=== PATIENT | female | born 2005 | race Caucasian/White ===

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

== ENCOUNTER → 2025-09-19 | Outpatient (CLI) | payer OTHER, SELFPAY ==
[2025-09-19 16:45] LABS: Hematocrit 34.9 % (37-47); Hemoglobin 12.1 g/dL (12.0-15.0); Immature Granulocytes Count 0.100 X10^3/uL (0.0-0.0); Mean Corp Hgb Conc 34.7 g/dL (32-36); Mean Corpuscular Volume 78.4 fL (81-99); Mean Platelet Vol. 10.6 fl (6.2-12.0); NRBC Flagged by Analyzer 0 % (0-5); Platelet Count 341 K/mm3 (150-450); RBC Distribution Width CV 12.9 % (11.6-14.6); RBC Distribution Width SD 36.4 fl (35.1-43.9); Red Blood Count 4.45 M/mm3 (4.2-5.4); White Blood Count 13.5 K/mm3 (4.4-11.0)
[2025-09-19 18:33] LABS: HIV Nonreactive (Nonreactive); Hepatitis B Surface Antigen Nonreactive (Nonreactive); Hepatitis C Antibody Nonreactive (Nonreactive); Syphilis Antibodies Nonreactive (Nonreactive)
[2025-09-23 06:07] LABS: Chlamydia By Nucleic Acid AMP Negative (Negative); Gonococcus By Nucleic Acid AMP Negative (Negative)
== END | disposition home or self-care (01) ==
PROVIDERS: PCP Nurse Practitioner Primary Care; Visit Provider Advanced Practice Midwife
DX: O09.90 Supervision of high risk pregnancy, unspecified, unspecified trimester (principal); Z3A.00 Weeks of gestation of pregnancy not specified
CPT/HCPCS: 36415; 83036; 85025; 86703; 86762; 86780; 86803; 86850; 86900; 86901; 87070; 87086; 87205; 87340; 87491; 87591

== ENCOUNTER 2025-10-11 10:06 | Outpatient (CLI) | payer OTHER, SELFPAY ==
[2025-10-11 10:13] VITALS: BP 119/75; PULSE 82; RESP 16; TEMP 35.9; O2SAT 98; BMI 34.0
[2025-10-11] MEDS: 0.9% NaCl Peripheral Flush Adult IV (10:46)
--- OUTSIDE RECORDS SUMMARY | 2025-10-11 11:00 | XMS RPT_ITS | CCD ---
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 Role Phone KERI, JIL Unavailable Unavailable BJORN, JACOB M Unavailable Unavailable BJORN, JACOB M Unavailable Unavailable KERI, JIL Unavailable Unavailable KERI, JIL Unavailable Unavailable BJORN, JACOB M Unavailable Unavailable KERI, JIL Unavailable Unavailable KERI, JIL Unavailable Unavailable BJORN, JACOB M Unavailable Unavailable KERI, JIL Unavailable Unavailable BJORN, JACOB M Unavailable Unavailable BJORN, JACOB M Unavailable Unavailable KERI, JIL Unavailable Unavailable KERI, JIL Unavailable Unavailable BJORN, JACOB M Unavailable Unavailable Janitz, Rocio Unavailable Unavailable Janitz, Rocio Unavailable Unavailable BJORN, JACOB M Unavailable Unavailable SANDHYA SNYDER Unavailable Unavailabl e PHADKE, KHANG Y Unavailable Unavailable BJORN, JACOB M Unavailable Unavailable PHADKE, KHANG Y Unavailable Unavailable PHADKE, KHANG Y Unavailable Unavailable BJORN, JACOB M Unavailable Unavailable KERI, JIL Unavailable Unavailable BJORN, JACOB M Unavailable Unavailable BJORN, JACOB M Unavailable Unavailable KERI, JIL Unavailable Unavailable KERI, JIL Unavailable Unavailable BJORN, JACOB M Unavailable Unavailable ALVIN MACE-TRISTA, NICOLETTE Sol Primary Care Physicia n Alvin TACK CLEANER, TACK CLEANER-C Nicolette Primary Care Provider Dr. Raman Roque Attending Provider ALVIN MACE-TRISTA, NICOLETTE Sol Attending Unava ilable ALVIN WICKN-SURVEY RESEARCH ANALYST, NICOLETTE Sol Primary Care Unava ilable ALVIN MACE-SURVEY RESEARCH ANALYST, NICOLETTE Sol Attending Unava ilable ALVIN DIRECTOR OF CORPORATE STRATEGY-SURVEY RESEARCH ANALYST, NICOLETTE S Primary Care Unava ilable ALVIN DIRECTOR OF CORPORATE STRATEGY-SURVEY RESEARCH ANALYST, NICOLETTE S Attending Unava ilable ALVIN DIRECTOR OF CORPORATE STRATEGY-SURVEY RESEARCH ANALYST, NICOLETTE S Primary Care Unava ilable DAY VILLASEÑOR, DR BAR Attending Unavailabl e ALVIN DIRECTOR OF CORPORATE STRATEGY-SURVEY RESEARCH ANALYST, NICOLETTE S Primary Care Unava ilable MAST DIRECTOR OF CORPORATE STRATEGY-SURVEY RESEARCH ANALYST, SUMA Attending Unavailabl e ALVIN DIRECTOR OF CORPORATE STRATEGY-SURVEY RESEARCH ANALYST, NICOLETTE S Primary Care Unava ilable DAY VILLASEÑOR, DR BAR Attending Unavailabl e ALVIN DIRECTOR OF CORPORATE STRATEGY-SURVEY RESEARCH ANALYST, NICOLETTE S Primary Care Unava ilable SUGEY VILLASEÑOR, NORTH Fong Attending Unavail able ALVIN DIRECTOR OF CORPORATE STRATEGY-SURVEY RESEARCH ANALYST, NICOLETTE S Primary Care Unava ilable MURILLO DIRECTOR OF CORPORATE STRATEGY-SURVEY RESEARCH ANALYST, PROSPER Johnson Attending Unavai lable ALVIN DIRECTOR OF CORPORATE STRATEGY-SURVEY RESEARCH ANALYST, NICOLETTE S Primary Care Unava ilable NINA VILLASEÑOR, DR ELIO Chen Attending Unavai lable ALVIN DIRECTOR OF CORPORATE STRATEGY-SURVEY RESEARCH ANALYST, NICOLETTE S Primary Care Unava ilable LESTER WHITLOCK, DR SADAF Heaton Attending Unavailable ALVIN DIRECTOR OF CORPORATE STRATEGY-SURVEY RESEARCH ANALYST, NICOLETTE S Primary Care Unava ilable ANALILIA VILLASEÑOR, DAIN Whitten Attending Unavailable ALVIN DIRECTOR OF CORPORATE STRATEGY-SURVEY RESEARCH ANALYST, NICOLETTE S Primary Care Unava ilable SUGEY VILLASEÑOR, NORTH Fong Attending Unavail able ALVIN DIRECTOR OF CORPORATE STRATEGY-SURVEY RESEARCH ANALYST, NICOLETTE S Primary Care Unava ilable YE ANDERSON MD Attending Unavailable ALVIN DIRECTOR OF CORPORATE STRATEGY-SURVEY RESEARCH ANALYST, NICOLETTE S Primary Care Unava ilable MURILLO DIRECTOR OF CORPORATE STRATEGY-SURVEY RESEARCH ANALYST, PROSPER Johnson Attending Unavai lable ALVIN DIRECTOR OF CORPORATE STRATEGY-SURVEY RESEARCH ANALYST, NICOLETTE S Primary Care Unava ilable Unavailable Primary Care Provider Unavaildavid Jameson RD, Rhianna Chen Unavailable SAUL WICKN - TRISTA, DANIELA Glover Primary Care Phys [facility] Daniela Fenton CNP Primary Care Provider ALVIN DIRECTOR OF CORPORATE STRATEGY-SURVEY RESEARCH ANALYST, NICOLETTE S Primary Care Unava ilable NINA VILLASEÑOR, DR ELIO Cehn Attending Unavai lable ALVIN DIRECTOR OF CORPORATE STRATEGY-SURVEY RESEARCH ANALYST, NICOLETTE S Primary Care Unava ilable DAY VILLASEÑOR, DR BAR Attending Unavailabl e SAUL DIRECTOR OF CORPORATE STRATEGY - SURVEY RESEARCH ANALYST, DANIELA Glover Primary Care U navailable SAUL DIRECTOR OF CORPORATE STRATEGY - SURVEY RESEARCH ANALYST, DANIELA Glover Attending U navailable SAUL DIRECTOR OF CORPORATE STRATEGY - SURVEY RESEARCH ANALYST, DANIELA Glover Primary Care U navailable RIDER DO, DR SADAF Heaton Attending Unavailable ALVIN DIRECTOR OF CORPORATE STRATEGY-SURVEY RESEARCH ANALYST, NICOLETTE S Primary Care Unava ilable GAIL DO, ROCIO Attending Unavailable SAMM LARSON Attending Unavailable SAULDANIELA ZAIDI Primary Care Unavailable NICOLETTE NEUMANN Attending Unavailable RHIANNA JAMESON Attending Unavailable ZOLTAN BETANCOURT A Referring Unavailable RAYNAHNERZOLTAN Attending Unavailable ZOLTAN BETANCOURT Referring Unavailable RAYNAHNCORINNE, ZOLTAN A Referring Unavailable NICOLETTE NEUMANN Referring Unavailable NICOLETTE NEUMANN Referring Unavailable SAULDANIELA ZAIDI Primary Care Unavailable NICOLETTE NEUMANN Attending Unavailable EDIE ALEMAN Attending Unavailable SAUL, DANIELA Glover Primary Care Unavailable SAULDANIELA ZAIDI Primary Care Unavailable JASEN GABRIEL Attending Unavailable SUALDANIELA ZAIDI Primary Care Unavailable SELF Referring Unavailable MCKENZIE CONSTANTINO Attending Unavailable Alvin TACK CLEANER-C, Nicolette Primary Care Physician [phone] Alvin TACK CLEANER-C, Nicolette Referring Provider [phone] Chito VILLASEÑOR, Dr. Conner Attending Physician Dalila Dale Attending Unavailable [place] TACK CLEANER, Nicolette Primary Care Unavailable Alvin TACK CLEANER, Nicolette Referring Unavailable [place] TACK CLEANER, Nicolette Primary Care Unavailable Alvin BANKS, Nicolette Referring Unavailable Geeta Leo Attending Unavailable Alvin BANKS, Nicolette Primary Care Unavailable Geeta Leo Attending Unavailable Allergies Allergy Classification Reported Allergen(s) Allergy Type Date of Onset Reaction(s) Facility (14 sources) Contrast dye 1; Translations: [iodinated radiocontrast agents] Drug allergy [facility] Comment on above: throat swelling (2 sources) Iodinated Contrast Media; Translations: [IODINATED CONTRAST MEDIA] Drug Allergy 5 Anaphylaxis [facility] (1 source) Nonoxynol-9 Drug Allergy 5 Swelling [facility] Comment on above: vaginal irritation (1 source) Triiodobenzoic Acids Propensity to adverse reactions 5 Anaphylaxis [facility] (1 source) Iodinated Contrast Media Drug allergy (disorder) 5 [facility] (1 source) nonoxynol 9 Drug allergy (disorder) 5 [facility] Medications Current Medications Medication Drug Class(es) Dates Sig (Normalized) Sig (Original) acetaminophen 325 mg / butalbital 50 mg / caffeine 40 mg oral tablet (2 sources) Barbiturate, Central Nervous System Stimulant, Methylxanthine Start: 04-30-2025 End: 05-05-2025 take 1 tablet by mouth every six hours as needed for headache, then take 6 tablets by mouth once daily as needed for headache APAP/butalbital/caf feine 325-50-40 mg oral tablet (Fioricet) Dose = 1 tab(s), Oral, q6h, PRN as needed for headache, not to exceed 6 tablets/day, X 5 day(s), # 20 tab(s), 0 Refill(s), ., Pharmacy: [facility], Migraines Frequent headaches, 159, cm, 04/30/25 13:50:00 EDT, Height, 81.2, kg, 04/30/25 13:50:00 EDT, Dosing Weight Start Date: 04/30/25 Stop Date: 05/05/25 Status: Ordered Quantity: 20.0 Unit: tab(s) Repeat number: 1 Indications: Migraine, unspecified, not intractable, without status migrainosus; Headache, unspecified; acetaminophen 325 mg / HYDROcodone bitartrate 5 mg oral tablet (1 source) Opioid Agonist Start: 09-22-2023 End: 09-24-2023 take 1 tablet by mouth every six hours [place] 325- 5 mg oral tablet Dose = 1 tab(s), Oral, q6h, # 5 tab(s), 0 Refill(s), Abdominal pain, 66.7 Start Date: 09/22/23 Stop Date: 09/24/23 Status: Ordered atenolol 25 mg oral tablet (3 sources) beta-Adrenergic Karina Start: 09-09-2022 atenolol 25 mg oral tablet Dose : 25 mg = 1 tab(s), Oral, qDay, # 30 tab(s), 3 Refill(s), Pharmacy: [facility], 155, cm, 09/06/22 16:57:00 EDT, Height Start Date: 09/09/22 Status: Ordered cephalexin 500 mg oral capsule (1 source) Cephalosporin Antibacterial Start: 05-07-2024 End: 05-12-2024 cephalexin 500 mg oral capsule Dose : 500 mg = 1 cap(s), Oral, BID, Take with a probiotic, X 5 day(s), # 10 cap(s), 0 Refill(s), 05/12/24 11:50:00 PM EDT, 65.9 Start Date: 05/07/24 Stop Date: 05/12/24 Status: Ordered ciprofloxacin 500 mg oral tablet (3 sources) Quinolone Antimicrobial Start: 09-10-2022 End: 09-13-2022 take 1 tablet by mouth every twelve hours ciprofloxacin 500 mg oral tablet TAKE 1 TABLET BY MOUTH EVERY 12 HOURS FOR 3 DAYS Start Date: 09/14/22 Status: Ordered eletriptan 40 mg oral tablet (2 sources) Serotonin-1b and Serotonin-1d Receptor Agonist Start: 05-28-2025 eletriptan (RELPAX) 40 mg tablet Take 1 tablet by mouth as needed for migraine headache (see administration instructions). at the onset of migraine headache. 9 tablet 3 05/28/2025 Active {21 (Ethinyl Estradiol 0.035 MG / norgestimate 0.25 MG Oral Tablet) / 7 (Inert Ingredients 1 MG Oral Tablet) } Pack [Sprintec 28 Day] (2 sources) Progestin, Estrogen Start: 09-06-2022 take 1 tablet by mouth once daily Sprintec 0.25 mg-35 mcg oral tablet Dose = 1 tab(s), Oral, qDay, # 28 tab(s), 0 Refill(s) Start Date: 09/06/22 Status: Ordered Start: 04-13-2022 Sprintec 0.25 mg-35 mcg oral tablet 0 Refill(s) Start Date: 04/13/22 Status: Ordered famotidine 20 mg oral tablet (7 sources) Histamine-2 Receptor Antagonist Start: 06-11-2024 Pepcid 20 mg oral tablet Dose : 20 mg = 1 tab(s), Oral, BID, # 60 tab(s), 0 Refill(s) Start Date: 06/11/24 Status: Ordered Start: 09-26-2023 End: 10-26-2023 famotidine 20 mg oral tablet Dose : 20 mg = 1 tab(s), Oral, BID, # 60 tab(s), 0 Refill(s), Pharmacy: [id number], Epigastric pain Nausea & vomiting, 157, cm, 09/26/23 8:09:00 EST, Height, kg, 09/26/23 8:09:00 EST, Dosing Weight Start Date: 09/26/23 Stop Date: 10/26/23 Status: Ordered FeroSul 325 mg (65 mg elemental iron) oral tablet (5 sources) Start: 04-13-2022 FeroSul 325 mg (65 mg elemental iron) oral tablet Dose : 325 mg = 1 tab(s), Oral, qDay, 0 Refill(s) Start Date: 04/13/22 Status: Ordered ferrous sulfate 325 mg oral tablet (1 source) Start: 01-05-2022 ferrous sulfate 325 mg (65 mg elemental iron) oral tablet Dose : 325 mg = 1 tab(s), Oral, qDay, every other day, # 90 tab(s), 3 Refill(s), Pharmacy: [id number], 155, cm, 01/05/22 14:30:00 EST, Height, kg, 01/05/22 14:30:00 EST, Dosing Weight Start Date: 01/05/22 Status: Ordered gabapentin 300 mg oral capsule (2 sources) Anti-epileptic Agent Start: 05-28-2025 End: 08-26-2025 take 1 capsule by mouth once daily at bedtime gabapentin (NEURONTIN) 300 mg capsule Take 1 capsule by mouth daily at bedtime for 90 days. 90 capsule 05/28/2025 08/26/2025 Active melatonin 1 mg oral tablet (6 sources) Start: 01-05-2022 End: 12-31-2022 melatonin 1 mg oral tablet Dose : 1 mg = 1 tab(s), Oral, qHS, PRN as needed for insomnia, X 90 day(s), # 90 tab(s), 3 Refill(s), 12/31/22 14:51:00 EST, Pharmacy: [id number], 155, cm, 01/05/22 14:30:00 EST, Height, kg, 01/05/22 14:30:00 EST, Dosing Weight Start Date: 01/05/22 Stop Date: 12/31/22 Status: Ordered metFORMIN hydrochloride 500 mg oral tablet (4 sources) Biguanide Start: 05-07-2025 End: 11-03-2025 take 2 tablets by mouth twice daily at mealtime, then take 1 tablet by mouth every week at dinner, then take 2 tablets by mouth two times weekly, then take 3 tablets by mouth at breakfast, then take 2 tablets by mouth every week at dinner, then take 4 tablets by mouth twice daily metFORMIN (GLUCOPHAGE) 500 mg tablet Take 2 tablets by mouth two times a day with meals. Week 1: 500mg with dinner, Week 2: 500mg Twice a day, Week 3: 500 mg with Breakfast and 2 tablets 1000 mg with Dinner, Week 4: 1000mg Twice a day 720 tablet 05/07/2025 11/03/2025 Active metoprolol tartrate 25 mg oral tablet (1 source) beta-Adrenergic Karina Start: 09-06-2022 Metoprolol Succinate ER 25 mg oral TABLET extended release Dose : 25 mg = 1 tab(s), Oral, qDay, # 30 tab(s), 0 Refill(s) Start Date: 09/06/22 Status: Ordered Multivit 79-Fkfl-Mlmwag 1-Dha (Pnv-Dha) 27 mg iron-1 mg -300 mg capsule (1 source) Start: 09-03-2025 Multivit 30-Wknx-Enmcoi 1-Dha (Pnv-Dha) 27 mg iron-1 mg -300 mg capsule Active NMA PO September 03, 2025 12:00am Complies with drug therapy naproxen sodium 550 mg oral tablet (1 source) Nonsteroidal Anti-inflammatory Drug Start: 09-11-2023 End: 09-21-2023 take 1 tablet by mouth once as needed for pain, then take 1 tablet by mouth twice daily as needed for pain Anaprox-DS 550 mg oral tablet Dose : 550 mg = 1 tab(s), PO, BID, prn pain with food, X 10 day(s), # 20 tab(s), 0 Refill(s), 09/21/23 3:42:00 AM EDT Start Date: 09/11/23 Stop Date: 09/21/23 Status: Ordered nortriptyline 25 mg oral capsule (6 sources) Tricyclic Antidepressant Start: 04-30-2025 End: 05-30-2025 nortriptyline (PAMELOR) 25 mg capsule 25 mg. 04/30/2025 Active omeprazole 40 mg delayed release oral capsule (5 sources) Proton Pump Inhibitor Start: 06-11-2024 omeprazole 40 mg oral delayed release capsule Dose : 40 mg = 1 cap(s), Oral, qDay, before a meal, # 30 cap(s), 0 Refill(s) Start Date: 06/11/24 Status: Ordered Start: 10-04-2023 End: 11-03-2023 omeprazole 40 mg oral delaye d release capsule Dose : 40 mg = 1 cap(s), Oral, qDay, # 30 cap(s), 0 Refill(s), Pharmacy: [facility], GERD (gastroesophageal reflux disease), 157, cm, 09/26/23 8:09:00 EST, Height, kg, 09/26/23 8:09:00 EST, Dosing Weight Start Date: 10/04/23 Stop Date: 11/03/23 Status: Ordered ondansetron 4 mg disintegrating oral tablet (5 sources) Serotonin-3 Receptor Antagonist Start: 09-26-2023 ondansetron 4 mg ora l tablet, disintegrating Dose : 4 mg = 1 tab(s), Oral, q6h, PRN Nausea/Vomiting, # 20 tab(s), 0 Refill(s), Pharmacy: [facility], Nausea & vomiting, 157, cm, 09/26/23 8:09:00 EST, Height, kg, 09/26/23 8:09:00 EST, Dosing Weight Start Date: 09/26/23 Status: Ordered Start: 09-22-2023 ondansetron 4 mg oral tablet, disintegrating Dose : 4 mg = 1 tab(s), Oral, q6h, PRN Nausea/Vomiting, # 10 tab(s), 0 Refill(s) Start Date: 09/22/23 Status: Ordered AD (2 sources) Start: 11-01-2024 AD Oral, qDay, 0 Refill(s) Start Date: 11/01/24 Status: Ordered Repeat number: 1 Multivitamins (7 sources) Start: 07-14-2023 take 1 tablet by mouth once daily Multivitamins Dose = 1 tab(s), Oral, qDay, # 90 tab(s), 0 Refill(s) Start Date: 07/14/23 Status: Ordered vit/iron fum/folic ac ( 1 + 1 ORAL) (1 source) vit/iro n fum/folic ac ( 1 + 1 ORAL) Take 1 tablet by mouth once daily. Active prochlorperazine 10 mg oral tablet (1 source) Phenothiazine Start: 05-04-2025 End: 05-09-2025 prochlorperazine 10 mg oral tablet Dose : 10 mg = 1 tab(s), Oral, BID, PRN Headache, Take with 25 mg Benadryl at the onset of headache, X 5 day(s), # 10 tab(s), 0 Refill(s), 05/09/25 12:53:00 AM EDT Start Date: 05/04/25 Stop Date: 05/09/25 Status: Ordered Quantity: 10.0 Unit: tab(s) Repeat number: 1 Sprintec 0.25 mg-35 mcg oral tablet (1 source) Start: 01-05-2022 take 1 tablet by mouth once daily Sprintec 0.25 mg-35 mcg oral tablet Dose = 1 tab(s), Oral, qDay, # 90 tab(s), 3 Refill(s), Pharmacy: [facility], 155, cm, 01/05/22 14:30:00 EST, Height, kg, 01/05/22 14:30:00 EST, Dosing Weight Start Date: 01/05/22 Status: Ordered SUMAtriptan 50 mg oral tablet (6 sources) Serotonin-1b and Serotonin-1d Receptor Agonist Start: 03-15-2024 SUMAtriptan 50 mg oral tablet Dose : 50 mg = 1 tab(s), Oral, qDay, PRN as needed for migraine headache, 1 tab onset , may repeat in 2 hrs. MAX 4 tab(s)/24hrs, # 9 tab(s), 0 Refill(s), Pharmacy: [facility], 157, cm, 03/15/24 7:00:00 EDT, Height, kg, 03/15/24 7:00:00 EDT, Dosing Weight Start Date: 03/15/24 Status: Ordered Completed/Discontinued Medications Medication Drug Class(es) Dates Sig (Normalized) Sig (Original) diphenhydrAMINE hydrochloride 25 mg oral tablet (8 sources) Histamine-1 Receptor Antagonist Start: 12-25-2018 End: 09-03-2025 take 2 tablets by mouth every four hours as needed Diphenhydramine Hcl (Benadryl Allergy) 25 MG tablet Discontinued 50 mg PO EVERY 4 HOURS NEEDED as needed for Itching December 25, 2018 1:00am September 03, 2025 8:19am diphenhydramine HCl (BENADRYL ALLERGY ORAL) Take by mouth. PRN with Nortriptyline Active EPINEPHrine 0.01 mg/ml / lidocaine hydrochloride 10 mg/ml injectable solution (2 sources) Antiarrhythmic, alpha-Adrenergic Agonist, beta-Adrenergic Agonist, Catecholamine, Amide Local Anesthetic Start: 07-12-2025 End: 07-12-2025 lidocaine 1%-EPINEPHrine 1:100,000 1 mL injection Start: 07-12-2025 End: 07-12-2025 1 mL, ONCE, 1 dose, Starting on Tue07/12/25 at 0922, Until Tue07/12/25 at 0922 fluconazole 150 mg oral tablet (3 sources) Azole Antifungal Start: 09-06-2022 End: 09-06-2022 fluconazole 150 mg oral tablet Dose : 150 mg = 1 tab(s), Oral, qDay, # 1 tab(s), 0 Refill(s), 59 Start Date: 09/06/22 Stop Date: 09/06/22 Status: Ordered predniSONE 20 mg oral tablet (4 sources) Start: 12-25-2018 End: 12-31-2018 take 2 tablets by mouth once daily at mealtime Prednisone 20 MG tablet Discontinued 40 mg PO DAILY December 25, 2018 1:00am December 30, 2018 1:00am December 31, 2018 1:08am With food Start: 12-25-2018 End: 12-31-2018 take 40 mg by mouth once daily at mealtime Prednisone Discontinued 40 MG PO DAILY December 25, 2018 2:27am December 31, 2018 1:08am With food Problems Active Problems Problem Classification Problem Date Documented Da te Episodic/Chronic Anxiety disorders (3 sources) Anxiety; Translations: [Anxiety disorder, unspecified] Onset: 5 09-03-2025 Chronic Bacterial infection; unspecified site (1 source) Other specified bacterial agents as the cause of diseases classified elsewhere; Translations: [Bacterial vaginitis] Onset: 5 Episodic Blindness and vision defects (9 sources) Visual disturbance 03-15-2024 Episodic Cardiac dysrhythmias (4 sources) Cardiac arrhythmia; Translations: [Other specified cardiac arrhythmias] Onset: 4 Chronic Cardiac dysrhythmias (20 sources) Palpitations 04-13-2022 Episodic Conditions associated with dizziness or vertigo (2 sources) Dizziness 04-30-2025 Episodic Disorders of lipid metabolism (1 source) Elevated Lipoprotein(a); Translations: [Other disorders of lipoid metabolism] 05-07-2025 Chronic Esophageal disorders (3 sources) Gastroesophageal reflux disease 10-09-2024 Chronic Genitourinary symptoms and ill-defined conditions (15 sources) Dysuria; Translations: [Polyuria] Onset: 5 04-13-2022 Episodic Headache; including migraine (20 sources) Migraine; Translations: [Migraine, unspecified, not intractable, without status migrainosus] Onset: 5 03-15-2024 Chronic Headache; including migraine (20 sources) Frequent headache; Translations: [Headache] 07-13-2022 Episodic Headache; including migraine (1 source) Headache; including migraine; Translations: [Chronic daily headache] Onset: Heart valve disorders (6 sources) Mitral valve regurgitation; Translations: [Pulmonic valve regurgitation] 04-30-2025 Chronic Comment on above: 05/17/2022 Echocardi ogram: SUMMARY: 1. Left ventricular systolic function is normal. 2. Estimated ejection fraction is 60%. 3. Apical false tendon noted. 4. Trivial mitral valve insufficiency. 5. Mild tricuspid valve insufficiency. 6. Mild 1+ pulmonic valve insufficiency. 7. Right ventricular systolic pressure estimated to be 16 mmHg. 8. No evidence of systolic dysfunction. Immunizations and screening for infectious disease (1 source) Patient encounter status; Translations: [Encounter for screening for human papillomavirus (HPV)] 02-27-2025 Episodic Inflammatory diseases of female pelvic organs (1 source) Acute vaginitis; Translations: [Bacterial vaginitis] Onset: 5 Episodic Malaise and fatigue (20 sources) Fatigue; Translations: [Other fatigue] Onset: 3 04-13-2022 Episodic Menstrual disorders (20 sources) Menometrorrhagia; Translations: [Menorrhagia] Onset: 3 11-26-2021 Chronic Noninfectious gastroenteritis (1 source) Noninfectious enteritis; Translations: [Noninfective gastroenteritis and colitis, unspecified] Onset: 5 Episodic Nonspecific chest pain (12 sources) Chest pain 04-13-2022 Episodic Other circulatory disease (20 sources) Postural orthostatic tachycardia syndrome ; Translations: [Postural orthostatic tachycardia syndrome [POTS]] Onset: 5 07-13-2022 Episodic Other complications of (2 sources) Maternal obesity complicating , childbirth and the puerperium, antepartum; Translations: [Obesity complicating , unspecified trimester] 09-03-2025 Chronic Comment on above: HgbA1c Other complications of (1 source) Obesity complicating , unspecified trimester; Translations: [Obesity complicating , unspecified trimester] Onset: 5 Chronic Other complications of (2 sources) High risk ; Translations: [Supervision of high risk , unspecified, unspecified trimester] 09-03-2025 Episodic Comment on above: , PELON 05/01/26 Hu khloeroxanna Melvin Other complications of (1 source) Supervision of high risk , unspecified, unspecified trimester; Translations: [Supervision of high risk , unspecified, unspecified trimester] Onset: 5 Episodic Other complications of (1 source) Vomiting of , unspecified; Translations: [Vomiting of , unspecified] Onset: 5 Episodic Other connective tissue disease (1 source) Pain of right lower leg; Translations: [Pain in right lower leg] Onset: 3 Episodic Other endocrine disorders (1 source) Polycystic ovary syndrome; Translations: [Polycystic ovarian syndrome] 05-07-2025 Chronic Other female genital disorders (3 sources) Abnormal uterine bleeding; Translations: [Abnormal uterine and vaginal bleeding, unspecified] 03-04-2025 Chronic Other female genital disorders (1 source) Abnormal uterine and vaginal bleeding, unspecified; Translations: [Abnormal uterine bleeding (AUB)] Onset: 5 Chronic Other female genital disorders (7 sources) Vaginal discharge 07-14-2023 Episodic Other female genital disorders (1 source) Other specified noninflammatory disorders of vagina; Translations: [Other specified noninflammatory disorders of vagina] Onset: 5 Episodic Other gastrointestinal disorders (5 sources) Irritable bowel syndrome; Translations: [Irritable bowel syndrome without diarrhea] 10-09-2024 Chronic Other gastrointestinal disorders (1 source) Irritable bowel syndrome without diarrhea; Translations: [Irritable bowel syndrome, unspecified] Onset: 5 Chronic Other gastrointestinal disorders (1 source) Diarrhea; Translations: [Diarrhea, unspecified] Onset: 2 Episodic Other gastrointestinal disorders (3 sources) Abdominal bloating; Translations: [Abdominal distension (gaseous)] 11-05-2024 Episodic Other nervous system disorders (2 sources) H/O: migraine; Translations: [Personal history of other diseases of the nervous system and sense organs] 09-03-2025 Episodic Other nervous system disorders (1 source) Personal history of other diseases of the nervous system and sense organs; Translations: [Personal history of other diseases of the nervous system and sense organs] Onset: 5 Episodic Other nutritional; endocrine; and metabolic disorders (2 sources) Obesity; Translations: [Class 1 obesity without serious comorbidity with body mass index (BMI) of 34.0 to 34.9 in adult, unspecified obesity type] 05-07-2025 Chronic Other nutritional; endocrine; and metabolic disorders (1 source) Body mass index (BMI) 34.0-34.9, adult; Translations: [Class 1 obesity without serious comorbidity with body mass index (BMI) of 34.0 to 34.9 in adult, unspecified obesity type] Onset: 5 Chronic Other nutritional; endocrine; and metabolic disorders (2 sources) Excessive thirst 04-30-2025 Episodic Other and delivery including normal (2 sources) ; Translations: [Encounter for supervision of normal , unspecified, unspecified trimester] 09-03-2025 Episodic Comment on above: discussed NIPT & Car rier testing-undecided Other screening for suspected conditions (not mental disorders or infectious disease) (2 sources) Cancer cervix screening status; Translations: [Encounter for screening for malignant neoplasm of cervix]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 VAGINOSIS NAATon 1 Lactobacillus crispatus+gasseri+j ensenii + Gardnerella vaginalis + Atopobium vaginae rRNA AJAY+probe Ql (Vag fld) Not detected Normal Not detected [facility] Comment on above: Order Comment: Speci men Type: SWABOrdering Facility: [facility] Address: [address] [place] [address] Performed By: #### Erich POWERS CVTV ####[facility] LABCLIA [id number] [place] [address] [place] Bacteria Ur Culton Bacteria identified Cx Nom (U) CULTURE, URINE: No growth (<1,000 CFU/ml) Normal [facility] Comment on above: Performed By: #### 6 30-4 ####[facility] LABCLIA [id number] [place] [address] [place] THU/TRICHOMONAS NAATon 1 C. glabrata RNA AJAY+probe Ql (Vag fld) Not detected Normal Not detected [facility] Comment on above: Order Comment: Speci men Type: SWABOrdering Facility: [facility] Address: [address] [place] [address] Performed By: #### Erich VAMP, CVTV ####[facility] LABCLIA [id number] [address] [place] Thu sp DNA AJAY+probe Ql (Vag fld) Not detected Normal Not detected [facility] Comment on above: Order Comment: Speci men Type: SWABOrdering Facility: [facility] Address: [address] [place] [address] Result Comment: The Thu species group target includes C. albicans, C. tropicalis, C. parapsilosis, and C. dubliniensis. Performed By: #### B VAMP, CVTV ####[facility] LABIA [id number] [address] [place] T. vaginalis DNA AJAY+probe Ql (Unsp spec) Not detected Normal Not detected [facility] Comment on above: Order Comment: Speci men Type: SWABOrdering Facility: [facility] Address: [address] [place] [address] Performed By: #### B VAMP, CVTV ####[facility] LABCLIA [id number] [address] OF [facility] CNOVon 08-28-2025 CNOV Office Visit (OBGYWM ) ELSA LOUIE ([id number]) 1 F Date Time Provider Department 08/28/25 11:30 AM MCKENZIE CONSTANTINO OBGYWM During your visit today, we recorded the following information about you: Blood pressure Last Period 116/76 07/25/25 Mckenzie Constantino APRN.CNM 08/28/2025 11:57 AM Signed Sanitation Director offered: Patient declines. Elsa Hunt Liban is a 20 year old female who presents for problem visit of burning with urination and back pain for the past couple of days. HPI: Patient seen at Urgent Care earlier this week and initially told she has at UTI and started treatment with Keflex PO . She was then called back and told that information was incorrect and she was actually positive for bacterial vaginosis. Patient here today for clarification and retesting. Patient also reports recent positive test- approximately 5 weeks gestation. 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 FAMILY HISTORY Problem Relation Age of Onset Breast Cancer Maternal Grandmother SOCIAL HISTORY[1] Current Outpatient Medications Medication Sig vit/iron fum/folic ac ( 1 + 1 ORAL) Take 1 tablet by mouth once daily. eletriptan (RELPAX) 40 mg tablet Take 1 tablet by mouth as needed for migraine headache (see administration instructions). at the onset of migraine headache. gabapentin (NEURONTIN) 300 mg capsule Take 1 capsule by mouth daily at bedtime for 90 days. (Patient not taking: Reported on 07/12/2025) nortriptyline (PAMELOR) 25 mg capsule 25 mg. (Patient not taking: Reported on 07/12/2025) diphenhydramine HCl (BENADRYL ALLERGY ORAL) Take by mouth. PRN with Nortriptyline (Patient not taking: Reported on 07/12/2025) metFORMIN (GLUCOPHAGE) 500 mg tablet Take 2 tablets by mouth two times a day with meals. Week 1: 500mg with dinner, Week 2: 500mg Twice a day, Week 3: 500 mg with Breakfast and 2 tablets 1000 mg with Dinner, Week 4: 1000mg Twice a day (Patient not taking: Reported on 07/12/2025) No current facility-administered medications for this visit. Allergies As of Date: 08/28/2025 Allergen Noted Reaction IODINATED CONTRAST MEDIA 07/12/2025 Anaphylaxis Fully Assessed 07/12/2025 REVIEW OF SYSTEMS Abdomen: No bloating, early satiety, indigestion, or increased flatulence. No abdominal pain, nausea, vomiting, diarrhea, or constipation. Bladder: POSITIVE FOR DYSURIA/ URGENCY/ FREQUENCY. Breast: No breast lumps, nipple d/c, overlying skin changes, redness or skin retraction. Expanded ROS: N/A Allergies and current medication updated:Yes SENSITIVE EXAM: The sensitive examination was discussed with the Patient or Patient's Authorized Clinic Nurse. As applicable, any other physician, advance practice provider, medical student, or other health professional student that will be observing or involved in the sensitive examination for educational or training purposes was discussed with the Patient or Authorized Clinic Nurse. The Patient or Authorized Clinic Nurse has agreed to proceed with the sensitive examination. (Sensitive examination includes inspection and/or palpation of the breasts, pelvis, prostate and anorectal regions). EXAM: BP 116/76 LMP 07/25/2025 CVA- + tenderness on left side with palpation GENERAL: pleasant, female in no apparent distress HEENT: Normocephalic NECK: Supple, full range of motion, no adenopathy, and thyroid normal DERMATOLOGY: Normal and without lesions BREAST: deferred CHEST: Normal inspiratory effort ABDOMEN: non-tender PELVIC: external genitalia normal, normal Bartholin's glands, urethra, [place]'s glands, no vulvar lesions, no cervical lesions, good vaginal support, physiologic discharge present, normal appearing perineal body and perianal region BIMANUAL: uterus normal size, shape and consistency, no adnexal masses, non-tender, and no cervical motion tenderness NEURO: alert and oriented x3,exam grossly non-focal EXTREMITIES: normal ASSESSMENT AND PLAN: Assessment AND Plan Dysuria Orders: UA DIP, URINE (POC) BACTERIAL CULTURE, URINE Bacterial vaginitis Orders: THU/TRICHOMONAS NAAT BACTERIAL VAGINOSIS NAAT - Urine culture collected and sent - Continue Keflex previously prescribed - Afebrile - Start vitamin daily - Schedule NOB - Will notify patient of results and any changes to plan of care Mckenzie Constantino APRN.PANCHO [1] Social History Tobacco Use Smoking status: Never Smokeless tobacco: Never Substance Use Topics Alcohol use: Ne (more content not included)... Normal [facility] Katherine [facility]20[facility] ELSA LOUIE ([id number]) 1 F Date Time Provider Department 08/22/25 NEUMANN, NICOLETTE OBGYWM During your visit today, we recorded the following information about you: Mirela Fair 08/22/2025 1:03 PM Signed Patient is asking if she is able to get a blood test to confirm . Her last menstrual period was on 07/25/25. Please review and advise patient. Mirela Fair August 22, 2025 1:03 PM Parisa Gilbert, SANA 08/22/2025 3:12 PM Signed 4w0d Denies vaginal bleeding AND denies abdominal pain. Off and on lower abdominal cramping, mild and tolerable. Advised Pt that the mild cramping can be normal in early AND to continue to monitor at this time AND that based on what she has described, HCG levels are not necessary unless there are concerns. Pt voiced understanding. Reviewed with Pt to call office/go to ER for severe abdominal pain/vaginal bleeding. Pt states she downloaded an kimber, and the kimber states that if shoulder pain is noted that it is a sign of an ectopic. Pt is concerned because she is noticing shoulder pain. Informed Pt that she should just continue to monitor for severe abdominal pain AND vaginal bleeding at this time. Offered Pt NOB appointment on 09/16 with and saw Pt had pelvic US 09/17 AND informed Pt that this RN would ask provider if she'd rather Pt just have the pelvic US d/t hx of cysts rather than bedside US/get providers recommendation. However, patient then asked if she'd be able to see Neumann. Informed Pt that unfortunately for this initial NOB appt, a provider has opened up a few spots in her schedule to fit NOB patients, and [facility] does not have any NOB for quite awhile. Pt then stated she would call back as she was going to check with another office. Informed Pt that we would be more than happy to provide OB care to her. Pt voiced understanding and stated she would let our office know. ONStort message sent to Pt to clarify that she did indeed have positive tests as this was not clarified, AND indeed she did have multiple + tests. Advised Pt to contact our office if she'd like to schedule her OB appointments as we'd be more than happy to see her. Parisa Gilbert RN Allergies As of Date: 08/22/2025 Noted Allergy Reaction IODINATED CONTRAST MEDIA 07/12/2025 10 - Anaphylaxis Comments: throat swelling Date Reviewed: 07/12/2025 Reviewed by: Cleopatra Vigil LPN - Fully Assessed Reason for Visit: Patient Question [7577] Prescriptions as of 08/22/2025 - vit/iron fum/folic ac ( 1 + 1 ORAL) Take 1 tablet by mouth once daily. - eletriptan (RELPAX) 40 mg tablet Take 1 tablet by mouth as needed for migraine headache (see administration instructions). at the onset of migraine headache. - gabapentin (NEURONTIN) 300 mg capsule Take 1 capsule by mouth daily at bedtime for 90 days. - nortriptyline (PAMELOR) 25 mg capsule 25 mg. - diphenhydramine HCl (BENADRYL ALLERGY ORAL) Take by mouth. PRN with Nortriptyline - metFORMIN (GLUCOPHAGE) 500 mg tablet Take 2 tablets by mouth two times a day with meals. Week 1: 500mg with dinner, Week 2: 500mg Twice a day, Week 3: 500 mg with Breakfast and 2 tablets 1000 mg with Dinner, Week 4: 1000mg Twice a day Problem List As Of Date 08/22/2025 Noted Resolved Cyst of left ovary [N83.202] 03/19/2025 Chronic migraine with aura without status migra*05/07/2025 Migraine with aura and without status migrainos*05/07/2025 Encounter Status:Closed by PARISA GILBERT on 08/22/25 [facility] 07-12-2025 CNOV Office Visit (WOBUBBA) ELSA LOUIE ([id number]) 1 F Date Time Provider Department 07/12/25 8:45 AM JASEN GABRIEL During your visit today, we recorded the following information about you: Temperature Pulse Respiration Blood pressure 97.6 degrees 68/minute 20/minute 116/81 Weight Last Period 80 kg 06/28/25 Jasen Gabriel APRN.SURVEY RESEARCH ANALYST 07/12/2025 9:28 AM Signed [facility]DE Hunt Masters is a 19 year old female. Patient presents with: Trauma: L foot outside of pinky toe x this am, possible metal, states stepped on same in home painful, dark area noted Trauma Foreign Body in Foot: - Stepped on a small object this morning, causing significant pain. 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 - Attempted to remove the object with tweezers, resulting in bleeding. - Sought assistance from nurses at work, but they were unable to remove it. - Denies previous experience with needle-based numbing; has had dental numbing. - Tetanus vaccination is up to date, received 8 years ago. Review of Systems Musculoskeletal: (+) foot pain Skin: (+) foot bleeding Objective BP 116/81 Pulse 68 Temp 36.4 ?C (97.6 ?F) Resp 20 Wt 80 kg (176 lb 5.9 oz) LMP 06/28/2025 (Exact Date) SpO2 100% BMI 33.32 kg/m? PAST MEDICAL HISTORY Diagnosis Date Uterine polyp No past surgical history on file. ALLERGIES Iodinated Contrast Media MEDICATIONS vit/iron fum/folic ac ( 1 + 1 ORAL) Take 1 tablet by mouth once daily. eletriptan (RELPAX) 40 mg tablet Take 1 tablet by mouth as needed for migraine headache (see administration instructions). at the onset of migraine headache. gabapentin (NEURONTIN) 300 mg capsule Take 1 capsule by mouth daily at bedtime for 90 days. (Patient not taking: Reported on 07/12/2025) nortriptyline (PAMELOR) 25 mg capsule 25 mg. (Patient not taking: Reported on 07/12/2025) diphenhydramine HCl (BENADRYL ALLERGY ORAL) Take by mouth. PRN with Nortriptyline (Patient not taking: Reported on 07/12/2025) metFORMIN (GLUCOPHAGE) 500 mg tablet Take 2 tablets by mouth two times a day with meals. Week 1: 500mg with dinner, Week 2: 500mg Twice a day, Week 3: 500 mg with Breakfast and 2 tablets 1000 mg with Dinner, Week 4: 1000mg Twice a day (Patient not taking: Reported on 07/12/2025) FAMILY HISTORY Problem Relation Age of Onset Breast Cancer Maternal Grandmother SOCIAL HISTORY[1] Physical Exam Constitutional: General: She is not in acute distress. Appearance: Normal appearance. She is normal weight. She is not ill-appearing or toxic-appearing. Pulmonary: Effort: Pulmonary effort is normal. Musculoskeletal: Feet: Feet: Comments: Visual 1 cm dark kobe in left pinky toe Metal, removed intact Neurological: Mental Status: She is alert. { 1. Superficial foreign body of left foot, initial encounter (P87.577X) - Foreign body removed under local anesthesia. - Tetanus vaccination up to date. - Advised to keep wound clean and dry; no antibiotics indicated at this time. Full removal, patient tolerated well. and Recording using Zar[employer] software for draft documentation of the visit was discussed with the patient/authorized automobile rental representative; all questions welcomed and answered. Patient/authorized automobile rental representative agreed to proceed MDM Eye/Body Foreign body removal Date/Time: 07/12/2025 9:22 AM Performed by: Jasen Gabriel APRN.SURVEY RESEARCH ANALYST Authorized by: Jasen Gabriel APRN.SURVEY RESEARCH ANALYST Location: Location: Toe Toe location: L little toe Depth: Subcutaneous Pre-procedure details: Imaging: None Neurovascular status: intact Preparation: Patient was prepped and draped in usual sterile fashion Medication: 1 mL lidocaine 1%-EPINEPHrine 1:100,000 1 %-1:100,000 Procedure details: Localization method: Visualized Dissection of underlying tissues: no Bloodless field: no Intact foreign body removal: yes Post-procedure details: Neurovascular status: intact Confirmation: No additional foreign bodies on visualization Skin closure: None Dressing: Adhesive bandage Patient tolerance of procedure: Tolerated well, no immediate complications [1] Social History Tobacco Use Smoking status: Never Smokeless tobacco: Never Substance Use Topics Alcohol use: Never Drug use: Never Allergies As of Date: 07/12/2025 Noted Allergy Reaction IODINATED CONTRAST MEDIA 07/12/2025 10 - Anaphylaxis Comments: throat swelling Date Reviewed: 07/12/2025 Reviewed by: Cleopatra Vigil LPN - Fully Assessed Reason for Visit: Trauma [112] Cmt: L foot outside of pinky toe x this am, possible metal, states stepped on same in home painful, dark area noted Primary Visit Diagnosis:Superficial foreign body of left foot, initial encounter [S90.852A] Order(s):Eye/Body Foreign body removal [YHO873] Order #: [id number] [] lidocaine 1%-EPINEPHrine 1: (more content not included)... Normal [facility] Eye/Body Foreign body remova zeeshan 07-12-2025 Jasen Gabriel APRN.C TACK CLEANER 07/12/2025 9:28 AM Eye/Body Foreign body removal Date/Time: 07/12/2025 9:22 AM Performed by: Jasen Gabriel APRN.SURVEY RESEARCH ANALYST Authorized by: Jasen Gabriel APRN.CNP Location: Location: Toe Toe location: L little toe Depth: Subcutaneous Pre-procedure details: Imaging: None Neurovascular status: intact Preparation: Patient was prepped and draped in usual sterile fashion Medication: 1 mL lidocaine 1%-EPINEPHrine 1:100,000 1 %-1:100,000 Procedure details: Localization method: Visualized Dissection of underlying tissues: no Bloodless field: no Intact foreign body removal: yes Post-procedure details: Neurovascular status: intact Confirmation: No additional foreign bodies on visualization Skin closure: None Dressing: Adhesive bandage Patient tolerance of procedure: Tolerated well, no immediate complications [facility] AVASon 05-09-2025 ADH 1.1 pg/mL Normal 0.0-4.7 [facility] Comment on above: Result Comment: This test was developed and its performance characteristics determined by [facility]. It has not been cleared or approved by the Food and Drug Administration. Performed At: [address] [id number] Sagar Carmona MD Ph:[phone] Performed By: #### VARSHA GALVAN UA #### [facility] [address] [place], [place] [address] CNOVon 05-07-2025 CNOV Office Visit (OBGYWM ) ELSA LOUIE ([id number]) 1 F Date Time Provider Department 05/07/25 9:30 AM NICOLETTE NEUMANN OBRACHELWApril During your visit today, we recorded the following information about you: Blood pressure Weight Last Period 110/72 81.6 kg 05/03/25 Nicolette Neumann APRN.CNM 05/07/2025 12:45 PM Signed Obstetrics and Gynecology [place] DIRECTOR OF RECRUITMENT AND ADMISSIONS Visit Subjective Recording using ambient [employer] software for draft documentation of the visit was discussed with the patient/authorized automobile rental representative; all questions welcomed and answered. Patient/authorized automobile rental representative agreed to proceed CHIEF COMPLAINT: Follow up HPI: The patient is a 19-year-old female presenting for follow-up on irregular menses and recent onset of daily migraines with aura. The patient reports a long-standing history of irregular and heavy menses. She previously used Depo-Provera, which resulted in continuous bleeding for two years and subsequent anemia. Currently, she experiences bleeding every 2-6 weeks, with episodes lasting 7-10 days, varying from light to heavy flow. She describes her menstrual pattern as very random, with multiple periods in a month or none at all. She also reports significant cramping and a sensation of pelvic heaviness described as feeling like a bowling ball. She denies current sexual activity, with the last occurrence approximately two years ago. Will have bleeding every 2-6 weeks, 7-10 days, light-heavy, and cramps. Cramps seem to be worth with the light bleeding. Feels light headed and dizzy but also has POTS Will take midol for pain and felt it used to work but not at this time. The only thing that helps is the bath. At this time, has not been on anything for menses. Feels she has a weight or bowling ball in her vaginal area. Feels heaviness not painful but uncomfortable. Currently engaged not sexually active at this time. Last time she was sexually was about 2 years ago and painful when she did engage in sex and cramp after. Admits to pain with urination and with bowel movements. Will also have cramping on and off all the time. Additionally, the patient reports daily excruciating migraines with aura for the past 2.5 months. Symptoms include vision loss, vertigo, and severe weakness, described as feeling like a limp noodle. She experiences these headaches every day, starting around [id number] and worsening by evening, affecting her vision. She was recently referred to a neurologist by her PCP, Daniela Fenton, and is awaiting an appointment. She was prescribed propranolol and Emgality but has not started Emgality due to apprehension. She visited the ER last week due to facial and neck numbness, where a CT scan was performed and results were normal. She denies MRI. The patient expresses interest in consulting a labor custodian. She is hesitant to start control due to previous negative experiences and prefers to focus on weight management first. She denies current sexual activity and plans to abstain until after marriage. She is engaged and planning to in July.She expresses a desire to have children in the future and is concerned about the potential impact of endometriosis on fertility. She reports a family history of endometriosis in her grandmother and aunt. 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 FAMILY HISTORY Problem Relation Age of Onset Breast Cancer Maternal Grandmother Social History Tobacco Use Smoking status: Never Smokeless tobacco: Never Substance Use Topics Alcohol use: Never Drug use: Never Current Outpatient Medications Medication Sig nortriptyline (PAMELOR) 25 mg capsule 25 mg. diphenhydramine HCl (BENADRYL ALLERGY ORAL) Take by mouth. PRN with Nortriptyline metFORMIN (GLUCOPHAGE) 500 mg tablet Take 2 tablets by mouth two times a day with meals. Week 1: 500mg with dinner, Week 2: 500mg Twice a day, Week 3: 500 mg with Breakfast and 2 tablets 1000 mg with Dinner, Week 4: 1000mg Twice a day No current facility-administered medications for this visit. ALLERGIES No Known Allergies REVIEW OF SYSTEMS: Constitutional: (+) weight gain Head: (+) daily migraines Eyes: (+) visual aura with wavy lines, (+) blurry vision, (+) transient vision loss Genitourinary: (+) heavy menstrual bleeding, (+) irregular menses, (+) pelvic cramps, (+) pelvic pressure Musculoskeletal: (+) lower back pain Neurological: (+) dizziness, (+) facial numbness, (+) neck numbness, (+) generalized we (more content not included)... Normal [facility] CT HEAD OR BRAIN W/O CONTRAS Ton 05-04-2025 CT HEAD OR BRAIN W/O CONTRAST ORIGINAL EXAMINATION: CT OF THE HEAD WITHOUT CONTRAST 05/04/2025 12:09 am TECHNIQUE: CT of the head was performed without the administration of intravenous contrast. Automated exposure control, iterative reconstruction, and/or weight based adjustment of the mA/kV was utilized to reduce the radiation dose to as low as reasonably achievable. COMPARISON: None. HISTORY: ORDERING SYSTEM PROVIDED HISTORY: Reason for Exam: headache all day long, states meds didn't help her Headache, increasing frequency or severity FINDINGS: BRAIN/VENTRICLES: There is no acute intracranial hemorrhage, mass effect or midline shift. No abnormal extra-axial fluid collection. The lorenzo-white differentiation is maintained without evidence of an acute infarct. There is no evidence of hydrocephalus. ORBITS: The visualized portion of the orbits demonstrate no acute abnormality. SINUSES: The visualized paranasal sinuses and mastoid air cells demonstrate no acute abnormality. SOFT TISSUES/SKULL: No acute abnormality of the visualized skull or soft tissues. IMPRESSION: No acute intracranial abnormality. Interpreted by: Carolyn Gage MD Preliminary Report By: Carolyn Gage MD Electronically signed By Carolyn Gage MD Dictated Date: 05/04/2025 12:24:28 AM Prelim Date: 05/04/2025 12:27:46 AM Sign Date: 05/04/2025 12:27:46 AM Ordering Provider: SADAF Smith [facility] .Auto Diffon 05-02-2025 Basophil, Absolute 0.1 10 3/mcL Normal 0.0-0.3 [facility] Comment on above: Performed By: #### VARSHA GALVAN UA #### [facility] [address] [place], [place] [address] Basophils/100 WBC (Bld) 0.9 % Normal 0.0-2.5 [facility] Comment on above: Performed By: #### VARSHA GALVAN UA #### [address] [address] Eosinophil, Absolute 0.1 10 3/mcL Normal 0.0-0.7 [facility] Comment on above: Performed By: #### P REGU, UAMICAO, UA #### [address] [address] Eosinophils/100 WBC (Bld) 2.3 % Normal 0.0-6.0 [facility] Comment on above: Performed By: #### P REGU, UAMICAO, UA #### [address] [address] Lymphocyte, Absolute 1.7 10 3/mcL Normal 0.9-4.3 [facility] Comment on above: Performed By: #### P REGU, UAMICAO, UA #### [address] [address] Lymphocytes/100 WBC (Bld) 30.1 % Normal 20.0-40.0 [facility] Comment on above: Performed By: #### P REGU, UAMICAO, UA #### [address] [address] Monocyte, Absolute 0.4 10 3/mcL Normal 0.1-1.4 [facility] Comment on above: Performed By: #### P REGU, UAMICAO, UA #### [address] [address] Monocytes/100 WBC (Bld) 7.1 % Normal 2.0-13.0 [facility] Comment on above: Performed By: #### P REGU, UAMICAO, UA #### [address] [address] Neutrophils/100 WBC (Bld) 59.6 % Normal 50.0-75.0 [facility] Comment on above: Performed By: #### P REGU, UAMICAO, UA #### [address] [address] .GFRon 05-02-2025 Estimated Glomerular Filtration Rate 114 ml/min/1.73sqm Normal [facility] Comment on above: Result Comment: Stages of Chronic Kidney Disease (CKD) Stage Description eGFR(ml/min/1.73 sq.m.) CKD 1 Normal kidney function or >=90 normal kindney function with possible kidney damage (ex. Proteinuria) CKD 2 Kidney damage with mild loss 60-89 of kidney function CKD 3a Mild to moderate loss of kidney 45-59 function CKD 3b Moderate to severe loss of 30-44 of kindey function CKD 4 Severe loss of kidney function 15-29 CKD 5 Kidney failure <15 Note: (go live 2024) the eGFR calculation was updated to the 2020 CKD-EPI creatinine equation without a race factor to calculate the eGFR results. Performed By: #### P REGU, UAMICAO, UA #### [address] [address] .NEUABSon 05-02-2025 Neutrophil, Absolute 3.5 10 3/mcL Normal 2.3-8.1 [facility] Comment on above: Performed By: #### P REGU, UAMICAO, UA #### [address] [address] CBCon 05-02-2025 Erythrocyte distribution width (RBC) [Ratio] 13.5 % Normal 11.5-15.5 [facility] Comment on above: Performed By: #### P REGU, UAMICAO, UA #### [place] [id number] Hematocrit (Bld) [Volume fraction] 36.4 % Normal 34.0-46.0 [facility] Comment on above: Performed By: #### P REGU, UAMICAO, UA #### [address] [address] Hgb 12.4 G/dL Normal 12.0-16.0 [facility] Comment on above: Performed By: #### P REGU, UAMICAO, UA #### [address] [address] MCH (RBC) [Entitic mass] 27.5 pg Normal 27.0-33.0 [facility] Comment on above: Performed By: #### P REGU, UAMICAO, UA #### [place] [address] MCHC 34.1 G/dL Normal 32.0-36.0 [facility] Comment on above: Performed By: #### P REGU, UAMICAO, UA #### [place] [address] MCV (RBC) [Entitic vol] 80.6 fL Normal 80.0-99.0 [facility] Comment on above: Performed By: #### P REGU UAMICAO, UA #### [place] [address] Platelet 284 10 3/mcL Normal 150-450 [facility] Comment on above: Performed By: #### P REGU, UAMICAO, UA #### [place] [address] Platelet mean volume (Bld) [Entitic vol] 8.6 fL Normal 6.6-10.5 [facility] Comment on above: Performed By: #### P REGU UAMICAO, UA #### [place] [address] RBC 4.51 10 6/mcL Normal 4.10-5.30 [facility] Comment on above: Performed By: #### P REGU, UAMICAO, UA #### [place] [id number] WBC 5.8 10 3/mcL Normal 4.5-10.8 [facility] Comment on above: Performed By: #### P REGU UAMICAO, UA #### [place] [id number] CMPon 05-02-2025 Albumin Level 3.8 G/dL Normal 3.5-5.0 [facility] Comment on above: Performed By: #### P REGU, UAMICAO, UA #### [address] [address] Albumin/Globulin [Mass ratio] 1.1 {ratio} Normal 1.1-2.5 [facility] Comment on above: Performed By: #### P REGU, UAMICAO, UA #### [address] [address] ALP [Catalytic activity/Vol] 92 U/L Normal 40-135 [facility] Comment on above: Performed By: #### P REGU, UAMICAO, UA #### [address] [address] ALT [Catalytic activity/Vol] 20 U/L Normal 14-59 [facility] Comment on above: Performed By: #### P REGU, UAMICAO, UA #### [address] [address] AST [Catalytic activity/Vol] 20 U/L Normal 10-40 [facility] Comment on above: Performed By: #### P REGU, UAMICAO, UA #### [address] [address] Bili Total 0.2 mg/dL Normal 0.2-1.0 [facility] Comment on above: Result Comment: Use of this assay is not recommended for patients undergoing treatment with eltrombopag due to the potential for falsely elevated results. Performed By: #### P REGU, UAMICAO, UA #### [address] [address] BUN/Creatinine Ratio 11 ratio Normal 7-27 [facility] Comment on above: Performed By: #### P REGU, UAMICAO, UA #### [address] [address] Calcium [Mass/Vol] 8.7 mg/dL Normal 8.4-10.2 [facility] Comment on above: Performed By: #### P REGU, UAMICAO, UA #### [address] [address] Chloride [Moles/Vol] 105 mmol/L Normal 98-107 [facility] Comment on above: Performed By: #### P REGU, UAMICAO, UA #### [place] [address] CO2 [Moles/Vol] 28 mmol/L Normal 22-29 [facility] Comment on above: Performed By: #### P REGU, UAMICAO, UA #### [place] [address] Creatinine [Mass/Vol] 0.76 mg/dL Normal 0.51-0.95 [facility] Comment on above: Performed By: #### P REGU, UAMICAO, UA #### [place] [address] Electrolyte Balance 7.0 mEq/L Normal 4.0-15.0 [facility] Comment on above: Performed By: #### P REGU, UAMICAO, UA #### [place] [address] Globulin 3.5 G/dL Normal 2.7-4.4 [facility] Comment on above: Performed By: #### P REGU, UAMICAO, UA #### [place] [address] Glucose [Mass/Vol] 91 mg/dL Normal 70-105 [facility] Comment on above: Performed By: #### P REGU, UAMICAO, UA #### [place] [address] Potassium [Moles/Vol] 4.4 mmol/L Normal 3.5-5.1 [facility] Comment on above: Performed By: #### P REGU, UAMICAO, UA #### [place] [address] Sodium [Moles/Vol] 140 mmol/L Normal 136-145 [facility] Comment on above: Performed By: #### P REGU, UAMICAO, UA #### [place] [address] Total Protein 7.3 G/dL Normal 6.4-8.2 [facility] Comment on above: Performed By: #### P REGU, UAMICAO, UA #### [place] [address] Urea nitrogen [Mass/Vol] 8 mg/dL Normal 7-18 [facility] Comment on above: Performed By: #### P REGU, UAMICAO, UA #### [address] [address] CRPon 05-02-2025 C-Reactive Protein 0.1 mg/dL Normal 0.0-0.3 [facility] Comment on above: Performed By: #### P REGU UAMICAO, UA #### [place] [address] ESRon 05-02-2025 Erythrocyte Sed Rate 9 mm/hr Normal 0-20 [facility] Comment on above: Performed By: #### P REGU, UAMICAO, UA #### [address] [address] FT4on 05-02-2025 Free T4 [Mass/Vol] 0.78 ng/dL Normal 0.76-1.46 [facility] Comment on above: Performed By: #### P REGU, UAMICAO, UA #### [address] [address] LABORATORYOrdered By: SYSTEM SYSTEM on 05-02-2025 Albumin BCP dye [Mass/Vol] 3.8 G/dL Normal 3.5 - 5.0 G/dL AO ADM SS Albumin/Globulin [Mass ratio] 1.1 {ratio} Normal 1.1 - 2.5 ratio AO ADM SS ALP [Catalytic activity/Vol] 92 U/L Normal 40 - 135 U/L AO ADM SS ALT With P-5'-P [Catalytic activity/Vol] 20 U/L Normal 14 - 59 U/L AO ADM SS AST With P-5'-P [Catalytic activity/Vol] 20 U/L Normal 10 - 40 U/L AO ADM SS Basophils (Bld) [#/Vol] 0.1 103/mcL Normal 0.0 - 0.3 10^3/mcL AO Workflow SS Basophils/100 WBC (Bld) 0.9 % Normal 0.0 - 2.5 % AO Workflow SS Bilirubin [Mass/Vol] 0.2 mg/dL Normal 0.2 - 1.0 mg/dL AO ADM SS Comment on above: Interpretive Data: U se of this assay is not recommended for patients undergoing treatment with eltrombopag due to the potential for falsely elevated results. Calcium [Mass/Vol] 8.7 mg/dL Normal 8.4 - 10. 2 mg/dL AO ADM SS Chloride [Moles/Vol] 105 mmol/L Normal 98 - 107 mmol/L AO ADM SS CO2 [Moles/Vol] 28 mmol/L Normal 22 - 29 mmol/L AO ADM SS Creatinine [Mass/Vol] 0.76 mg/dL Normal 0.51 - 0.95 mg/dL AO ADM SS CRP [Mass/Vol] 0.1 mg/dL Normal 0.0 - 0.3 mg/dL AO ADM SS Electrolyte Balance 7.0 mEq/L Normal 4.0 - 15 .0 mEq/L AO ADM SS Eosinophil, Absolute 0.1 103/mcL Normal 0.0 - 0.7 10^3/mcL AO Workflow SS Eosinophils/100 WBC (Bld) 2.3 % Normal 0.0 - 6.0 % AO Workflow SS Erythrocyte distribution width (RBC) [Ratio] 13.5 % Normal 11.5 - 15.5 % AO Workflow SS Estimated Glomerular Filtration Rate 114 ml/min/1.73sqm Invalid Interpretation Code AO Chemistry S Comment on above: Interpretive Data: Stages of Chronic Kidney Disease (CKD) Stage Description eGFR(ml/min/1.73 sq.m.) CKD 1 Normal kidney function or >=90 normal kindney function with possible kidney damage (ex. Proteinuria) CKD 2 Kidney damage with mild loss 60-89 of kidney function CKD 3a Mild to moderate loss of kidney 45-59 function CKD 3b Moderate to severe loss of 30-44 of kindey function CKD 4 Severe loss of kidney function 15-29 CKD 5 Kidney failure <15 Note: (go live 2024) the eGFR calculation was updated to the 2020 CKD-EPI creatinine equation without a race factor to calculate the eGFR results. Free T4 [Mass/Vol] 0.78 ng/dL Normal 0.76 - 1. 46 ng/dL AO ADM SS Globulin 3.5 G/dL Normal 2.7 - 4.4 G/dL AO ADM SS Glucose [Mass/Vol] 91 mg/dL Normal 70 - 105 mg/dL AO ADM SS Hematocrit (Bld) [Volume fraction] 36.4 % Normal 34.0 - 46.0 % AO Workflow SS Hemoglobin (Bld) [Mass/Vol] 12.4 G/dL Normal 12.0 - 16.0 G/dL AO Workflow SS Lymphocytes (Bld) [#/Vol] 1.7 103/mcL Normal 0.9 - 4.3 10^3/mcL AO Workflow SS Lymphocytes/100 WBC (Bld) 30.1 % Normal 20.0 - 40.0 % AO Workflow SS Magnesium [Mass/Vol] 2.0 mg/dL Normal 1.8 - 2.4 mg/dL AO ADM SS MCH (RBC) [Entitic mass] 27.5 pg Normal 27.0 - 33.0 pg AO Workflow SS MCHC 34.1 G/dL Normal 32.0 - 36.0 G/dL AO Workflow SS MCV (RBC) [Entitic vol] 80.6 fL Normal 80.0 - 99.0 fL AO Workflow SS Monocytes (Bld) [#/Vol] 0.4 103/mcL Normal 0.1 - 1.4 10^3/mcL AO Workflow SS Monocytes/100 WBC (Bld) 7.1 % Normal 2.0 - 13.0 % AO Workflow SS Neutrophils (Bld) [#/Vol] 3.5 103/mcL Normal 2.3 - 8.1 10^3/mcL AO Workflow SS Neutrophils/100 WBC (Bld) 59.6 % Normal 50.0 - 75.0 % AO Workflow SS Platelet mean volume (Bld) [Entitic vol] 8.6 fL Normal 6.6 - 10.5 fL AO Workflow SS Platelets (Bld) [#/Vol] 284 103/mcL Normal 150 - 450 10^3/mcL AO Workflow SS Potassium [Moles/Vol] 4.4 mmol/L Normal 3.5 - 5.1 mmol/L AO ADM SS Protein [Mass/Vol] 7.3 G/dL Normal 6.4 - 8.2 G/dL AO ADM SS RBC (Bld) [#/Vol] 4.51 106/mcL Normal 4.10 - 5.3 0 10^6/mcL AO Workflow SS Sodium [Moles/Vol] 140 mmol/L Normal 136 - 145 mmol/L AO ADM SS TSH Qn 2.02 m[IU]/L Normal 0.36 - 3.74 mcIU/mL AO ADM SS Urea nitrogen [Mass/Vol] 8 mg/dL Normal 7 - 18 mg/dL AO ADM SS Urea nitrogen/Creatinine [Mass ratio] 11 ratio Normal 7 - 27 ratio AO ADM SS WBC (Bld) [#/Vol] 5.8 103/mcL Normal 4.5 - 10.8 10^3/mcL AO Workflow SS LABORATORYOrdered By: Lenka Wallace on 05-02-2025 ESR Photometric method (Bld) [Velocity] 9 mm/hr Normal 0 - 20 mm/hr AO Man Heme SS MGon 05-02-2025 Magnesium [Mass/Vol] 2.0 mg/dL Normal 1.8-2.4 [facility] Comment on above: Performed By: #### P REGUVARSHA UA #### [place] [id number] [place], [place] [address] TSHon 05-02-2025 TSH Qn 2.02 m[IU]/L Normal 0.36-3.74 [facility] Comment on above: Performed By: #### P REGUVARSHA UA #### [address] [address] CBC W Auto Differential pane l (Bld)on 03-04-2025 Basophils (Bld) [#/Vol] 0.05 10*3/uL [facility] Basophils/100 WBC (Bld) 0.8 % [facility] Differential cell count method Nom (Bld) Auto [facility] Eosinophils (Bld) [#/Vol] 0.13 10*3/uL [facility] Eosinophils/100 WBC (Bld) 2.1 % [facility] Erythrocyte distribution width (RBC) [Ratio] 12.5 % 11.5 - 15.0 % [facility] Hematocrit (Bld) [Volume fraction] 37.6 % 36.0 - 46.0 % [facility] Hemoglobin (Bld) [Mass/Vol] 13.2 g/dL 11.5 - 15.5 g/dL [facility] Immature [facility] (Bld) [#[facility]Vol] [facility] Immature granulocytes/100 WBC (Bld) 0.3 % [facility] Interpretation and review of laboratory results Abnormal [facility] Lymphocytes (Bld) [#/Vol] 1.71 10*3/uL [facility] Lymphocytes/100 WBC (Bld) 28.1 % [facility] MCH (RBC) [Entitic mass] 27.6 pg 26.0 - 34.0 pg [facility] MCHC (RBC) [Mass/Vol] 35.1 g/dL 30.5 - 36.0 g/dL [facility] MCV (RBC) [Entitic vol] 78.7 fL Low 80.0 - 100.0 fL [facility] Monocytes (Bld) [#/Vol] 0.49 10*3/uL [facility] Monocytes/100 WBC (Bld) 8 % [facility] Neutrophils (Bld) [#/Vol] 3.69 10*3/uL [facility] Neutrophils/100 WBC (Bld) 60.7 % [facility] Nucleated RBC (Bld) [#/Vol] [facility] Nucleated RBC/100 WBC (Bld) [Ratio] 0 % /100 WBC [facility] Platelet mean volume (Bld) [Entitic vol] 10.4 fL 9.0 - 12.7 fL [facility] Platelets (Bld) [#/Vol] 300 10*3/uL [facility] RBC (Bld) [#/Vol] 4.78 10*6/uL 3.90 - 5.2 0 m/uL [facility] WBC (Bld) [#/Vol] 6.09 10*3/uL [facility] Basophils (Bld) [#/Vol] 0.05 10*3/uL Normal <0.11 [facility] Comment on above: Order Comment: Speci men Type: BLOOD SPECIMENOrdering Facility: [facility] Address: [address] [place] [address] Performed By: #### 5 7021-8 ####[facility] HAYDE WELLSHUNT[place]HERMANN [id number] [address] [place] Basophils/100 WBC (Bld) 0.8 % Normal [facility] Comment on above: Order Comment: Speci men Type: BLOOD SPECIMENOrdering Facility: [facility] Address: [address] [place] [address] Performed By: #### 5 7021-8 ####[facility] CENTERJEFF [id number] [place] [address] [place] Differential cell count method Nom (Bld) Auto Normal [facility] Comment on above: Order Comment: Speci men Type: BLOOD SPECIMENOrdering Facility: [facility] Address: [address] [place] [address] Performed By: #### 5 7021-8 ####[facility] [id number] [place] [address] [place] Eosinophils (Bld) [#/Vol] 0.13 10*3/uL Normal <0.46 [facility] Comment on above: Order Comment: Speci men Type: BLOOD SPECIMENOrdering Facility: [facility] Address: [address] [place] [address] Performed By: #### 5 7021-8 ####[facility] [id number] [place] [address] [place] Eosinophils/100 WBC (Bld) 2.1 % Normal [facility] Comment on above: Order Comment: Speci men Type: BLOOD SPECIMENOrdering Facility: [facility] Address: [address] [place] [address] Performed By: #### 5 7021-8 ####[facility] [id number] [place] [address] [place] Erythrocyte distribution width (RBC) [Ratio] 12.5 % Normal 11.5-15.0 [facility] Comment on above: Order Comment: Speci men Type: BLOOD SPECIMENOrdering Facility: [facility] Address: [address] [place] [address] Performed By: #### 5 7021-8 ####[facility]IC[facility]CL[facility] [id number] [place] [address] [place] Hematocrit (Bld) [Volume fraction] 37.6 % Normal 36.0-46.0 [facility] Comment on above: Order Comment: Speci men Type: BLOOD SPECIMENOrdering Facility: [facility] Address: [address] [place] [address] Performed By: #### 5 7021-8 ####[facility] CENTERLIA [id number] [place] [address] [place] Hemoglobin (Bld) [Mass/Vol] 13.2 g/dL Normal 11.5-15.5 [facility] Comment on above: Order Comment: Speci men Type: BLOOD SPECIMENOrdering Facility: [facility] Address: [address] [place] [address] Performed By: #### 5 7021-8 ####[facility] [id number] [place] [address] [place] Immature granulocytes (Bld) [#/Vol] 10*3/uL Normal <0.10 [facility] Comment on above: Order Comment: Speci men Type: BLOOD SPECIMENOrdering Facility: [facility] Address: [address] [place] [address] Performed By: #### 5 7021-8 ####[facility] CENTERLIA [id number] [place] [address] [place] Immature granulocytes/100 WBC (Bld) 0.3 % Normal [facility] Comment on above: Order Comment: Speci men Type: BLOOD SPECIMENOrdering Facility: [facility] Address: [address] [place] [address] Performed By: #### 5 7021-8 ####[facility] JACKSONVILLENCLIA [id number] [place] [address] [place] Lymphocytes (Bld) [#/Vol] 1.71 10*3/uL Normal 1.00-4.00 [facility] Comment on above: Order Comment: Speci men Type: BLOOD SPECIMENOrdering Facility: [facility] Address: [address] [place] [address] Performed By: #### 5 7021-8 ####[facility] [id number] [place] [address] [place] Lymphocytes/100 WBC (Bld) 28.1 % Normal [facility] Comment on above: Order Comment: Speci men Type: BLOOD SPECIMENOrdering Facility: [facility] Address: [address] [place] [address] Performed By: #### 5 7021-8 ####[facility]ACKSONVILLENCJORD[facility] [id number] [place] [address] [place] MCH (RBC) [Entitic mass] 27.6 pg Normal 26.0-34.0 [facility] Comment on above: Order Comment: Speci men Type: BLOOD SPECIMENOrdering Facility: [facility] Address: [address] [place] [address] Performed By: #### 5 7021-8 ####[facility]ACKSONVILLENCJORD[facility] [id number] [place] [address] [place] MCHC (RBC) [Mass/Vol] 35.1 g/dL Normal 30.5-36.0 [facility] Comment on above: Order Comment: Speci men Type: BLOOD SPECIMENOrdering Facility: [facility] Address: [address] [place] [address] Performed By: #### 5 7021-8 ####[facility] JACKSONVILLENCLI [id number] [place] [address] [place] MCV (RBC) [Entitic vol] 78.7 fL Low 80.0-100.0 [facility] Comment on above: Order Comment: Speci men Type: BLOOD SPECIMENOrdering Facility: [facility] Address: [address] [place] [address] Performed By: #### 5 7021-8 ####[facility] [id number] [place] [address] [place] Monocytes (Bld) [#/Vol] 0.49 10*3/uL Normal <0.87 [facility] Comment on above: Order Comment: Speci men Type: BLOOD SPECIMENOrdering Facility: [facility] Address: [address] [place] [address] Performed By: #### 5 7021-8 ####[facility] [id number] [place] [address] [place] Monocytes/100 WBC (Bld) 8.0 % Normal [facility] Comment on above: Order Comment: Speci men Type: BLOOD SPECIMENOrdering Facility: [facility] Address: [address] [place] [address] Performed By: #### 5 7021-8 ####[facility] [id number] [place] [address] [place] Neutrophils (Bld) [#/Vol] 3.69 10*3/uL Normal 1.45-7.50 [facility] Comment on above: Order Comment: Speci men Type: BLOOD SPECIMENOrdering Facility: [facility] Address: [address] [place] [address] Performed By: #### 5 7021-8 ####[facility] JACKSONVILLENCLIA [id number] [place] [address] [place] Neutrophils/100 WBC (Bld) 60.7 % Normal [facility] Comment on above: Order Comment: Speci men Type: BLOOD SPECIMENOrdering Facility: [facility] Address: [address] [place] [address] Performed By: #### 5 7021-8 ####[facility] PRISCILLAWJAXONLIA [id number] [place] [address] [place] Nucleated RBC (Bld) [#/Vol] 10*3/uL Normal <0.01 [facility] Comment on above: Order Comment: Speci men Type: BLOOD SPECIMENOrdering Facility: [facility] Address: [address] [place] [address] Performed By: #### 5 7021-8 ####[facility] JACKSONVILLEJAXONLIA [id number] [place] [address] [place] Nucleated RBC/100 WBC (Bld) [Ratio] 0.0 /100 WBC Normal [facility] Comment on above: Order Comment: Speci men Type: BLOOD SPECIMENOrdering Facility: [facility] Address: [address] [place] [address] Performed By: #### 5 7021-8 ####[facility] [id number] [place] [address] [place] Platelet mean volume (Bld) [Entitic vol] 10.4 fL Normal 9.0-12.7 [facility] Comment on above: Order Comment: Speci men Type: BLOOD SPECIMENOrdering Facility: [facility] Address: [address] [place] [address] Performed By: #### 5 7021-8 ####[facility] MED[facility] CENTERLIA [id number] [place] [address] [place] Platelets (Bld) [#/Vol] 300 10*3/uL Normal 150-400 [facility] Comment on above: Order Comment: Speci men Type: BLOOD SPECIMENOrdering Facility: [facility] Address: [address] [place] [address] Performed By: #### 5 7021-8 ####[facility]ACKSONVILLENCLIA [id number] [address] [place] [facility] RBC (Bld) [#/Vol] 4.78 10*6/uL Normal 3.90-5.20 [facility] [facility] Comment on above: Order Comment: Speci men Type: BLOOD SPECIMENOrdering Facility: [facility] Address: [address] [place] [address] Performed By: #### 5 7021-8 ####[facility] [id number] [address] WBC (Bld) [#/Vol] 6.09 10*3/uL Normal 3.70-11.00 [facility] Comment on above: Order Comment: Speci men Type: BLOOD SPECIMENOrdering Facility: [facility] Address: [address] [place] [address] Performed By: #### 5 7021-8 ####[facility] JACKSONVILLENCLIA [id number] [address] OF [facility] Comprehensive metabolic 2000 panelOrdered By: Rebecca Sandoval on 03-04-2025 Albumin [Mass/Vol] 4.7 g/dL 3.9 - 4.9 g/dL [facility] ALP [Catalytic activity/Vol] 86 U/L 34 - 123 U/L [facility] ALT [Catalytic activity/Vol] 11 U/L 7 - 38 U/L [facility] Anion gap [Moles/Vol] 13 mmol/L 8 - 15 mmol/L [facility] AST [Catalytic activity/Vol] 19 U/L 13 - 35 U/L [facility] Bilirubin [Mass/Vol] 0.5 mg/dL 0.2 - 1.3 mg/dL [facility] Calcium [Mass/Vol] 9.5 mg/dL 8.5 - 10. 2 mg/dL [facility] Chloride [Moles/Vol] 103 mmol/L 98 - 107 mmol/L [facility] CO2 [Moles/Vol] 23 mmol/L 22 - 30 mmol/L [facility] Creatinine [Mass/Vol] 0.79 mg/dL 0.58 - 0.96 mg/dL [facility] GFR/1.73 sq M.predicted among non-blacks MDRD (S/P/Bld) [Vol rate/Area] 109 mL/min/{1.73_m2} - PINF [facility] Comment on above: Estimated Glomerular Filtration Rate (eGFR) is calculated using the 2020 CKD-EPI creatinine equation. This equation utilizes serum creatinine, sex, and age as parameters. The creatinine assay has traceable calibration to isotope dilution-mass spectrometry. Refer to KDIGO guidelines for clinical interpretation. In patients with unstable renal function, e.g. those with acute kidney injury, the eGFR may not accurately reflect actual GFR. Glucose [Mass/Vol] 99 mg/dL 74 - 99 mg/dL [facility] Comment on above: The German Diabete s Association (ADA) provides guidance for cutoff values for fasting glucose and random glucose. The ADA defines fasting as no caloric intake for at least 8 hours. Fasting plasma glucose results between 100 to 125 mg/dL indicate increased risk for diabetes (prediabetes). Fasting plasma glucose results greater than or equal to 126 mg/dL meet the criteria for diagnosis of diabetes. In the absence of unequivocal hyperglycemia, results should be confirmed by repeat testing. In a patient with classic symptoms of hyperglycemia or hyperglycemic crisis, random plasma glucose results greater than or equal to 200 mg/dL meet the criteria for diagnosis of diabetes. Reference: Standards of Medical Care in Diabetes 2016, German Diabetes Association. Diabetes Care. 2016.39(Suppl 1). Interpretation and review of laboratory results Normal [facility] Potassium [Moles/Vol] 3.9 mmol/L 3.7 - 5.1 mmol/L [facility] Protein [Mass/Vol] 7.4 g/dL 6.3 - 8.0 g/dL [facility] Sodium [Moles/Vol] 139 mmol/L 136 - 144 mmol/L [facility] Urea nitrogen [Mass/Vol] 7 mg/dL 7 - 21 mg/dL [facility] Comprehensive metabolic 2000 panelon 03-04-2025 Albumin [Mass/Vol] 4.7 g/dL Normal 3.9-4.9 [facility] Comment on above: Order Comment: Speci men Type: BLOOD SPECIMENOrdering Facility: [facility] Address: [address] [place] [address] Performed By: #### 2 4323-8 ####[facility] HAYDE LIM [id number] [place] [address] [place] ALP [Catalytic activity/Vol] 86 U/L Normal 34-123 [facility] Comment on above: Order Comment: Speci men Type: BLOOD SPECIMENOrdering Facility: [facility] Address: [address] [place] [address] Performed By: #### 2 4323-8 ####[facility] MILLWNCLIA [id number] [place] [address] [place] ALT [Catalytic activity/Vol] 11 U/L Normal 7-38 [facility] Comment on above: Order Comment: Speci men Type: BLOOD SPECIMENOrdering Facility: [facility] Address: [address] [place] [address] Performed By: #### 2 4323-8 ####[facility] JACKSONVILLENCLIA [id number] [place] [address] [place] Anion gap [Moles/Vol] 13 mmol/L Normal 8-15 [facility] Comment on above: Order Comment: Speci men Type: BLOOD SPECIMENOrdering Facility: [facility] Address: [address] [place] [address] Performed By: #### 2 4323-8 ####[facility] CENTERLIA [id number] [place] [address] [place] AST [Catalytic activity/Vol] 19 U/L Normal 13-35 [facility] Comment on above: Order Comment: Speci men Type: BLOOD SPECIMENOrdering Facility: [facility] Address: [address] [place] [address] Performed By: #### 2 4323-8 ####[facility] JACKSONVILLENCLIA [id number] [place] [address] [place] Bilirubin [Mass/Vol] 0.5 mg/dL Normal 0.2-1.3 [facility] Comment on above: Order Comment: Speci men Type: BLOOD SPECIMENOrdering Facility: [facility] Address: [address] [place] [address] Performed By: #### 2 4323-8 ####[facility] MAXILIA [id number] [place] [address] [place] Calcium [Mass/Vol] 9.5 mg/dL Normal 8.5-10.2 [facility] Comment on above: Order Comment: Speci men Type: BLOOD SPECIMENOrdering Facility: [facility] Address: [address] [place] [address] Performed By: #### 2 4323-8 ####[facility] JACKSONVILLENCLIA [id number] [place] [address] [place] Chloride [Moles/Vol] 103 mmol/L Normal 98-107 [facility] Comment on above: Order Comment: Speci men Type: BLOOD SPECIMENOrdering Facility: [facility] Address: [address] [place] [address] Performed By: #### 2 4323-8 ####[facility] JACKSONVILLENCJEFFA [id number] [place] [address] [place] CO2 [Moles/Vol] 23 mmol/L Normal 22-30 [facility] Comment on above: Order Comment: Speci men Type: BLOOD SPECIMENOrdering Facility: [facility] Address: [address] [place] [address] Performed By: #### 2 4323-8 ####[facility]IC[facility]CL[facility] [id number] [place] [address] [place] Creatinine [Mass/Vol] 0.79 mg/dL Normal 0.58-0.96 [facility] Comment on above: Order Comment: Speci men Type: BLOOD SPECIMENOrdering Facility: [facility] Address: [address] [place], [place] [address] Performed By: #### 2 4323-8 ####[facility] [id number] [place] [address] [place] Creatinine and Glomerular filtration rate.predicted panel (S/P/Bld) 109 mL/min/1.73m??? Normal >=60 [facility] Comment on above: Order Comment: Omero cervantes Type: BLOOD SPECIMENOrdering Facility: [facility] Address: [address] [place] [address] Result Comment: Tamera mated Glomerular Filtration Rate (eGFR) is calculated using the 2020 CKD-EPI creatinine equation. This equation utilizes serum creatinine, sex, and age as parameters. The creatinine assay has traceable calibration to isotope dilution-mass spectrometry. Refer to KDIGO guidelines for clinical interpretation. In patients with unstable renal function, e.g. those with acute kidney injury, the eGFR may not accurately reflect actual GFR. Performed By: #### 2 4323-8 ####[facility] [id number] [place] [address] [place] Glucose [Mass/Vol] 99 mg/dL Normal 74-99 [facility] Comment on above: Order Comment: Omero cervantes Type: BLOOD SPECIMENOrdering Facility: [facility] Address: [address] [place] [address] Result Comment: The [place] Diabetes Association (ADA) provides guidance for cutoff values for fasting glucose and random glucose. The ADA defines fasting as no caloric intake for at least 8 hours. Fasting plasma glucose results between 100 to 125 mg/dL indicate increased risk for diabetes (prediabetes). Fasting plasma glucose results greater than or equal to 126 mg/dL meet the criteria for diagnosis of diabetes. In the absence of unequivocal hyperglycemia, results should be confirmed by repeat testing. In a patient with classic symptoms of hyperglycemia or hyperglycemic crisis, random plasma glucose results greater than or equal to 200 mg/dL meet the criteria for diagnosis of diabetes. Reference: Standards of Medical Care in Diabetes 2016, [place] Diabetes Association. Diabetes Care. 2016.39(Suppl 1). Performed By: #### 2 4323-8 ####[facility] [id number] [place] [id number] [place] Potassium [Moles/Vol] 3.9 mmol/L Normal 3.7-5.1 [facility] Comment on above: Order Comment: Speci men Type: BLOOD SPECIMENOrdering Facility: [facility] Address: [address] [place] [address] Performed By: #### 2 4323-8 ####[facility]ICVJ [id number] [place] [address] [place] Protein [Mass/Vol] 7.4 g/dL Normal 6.3-8.0 [facility] Comment on above: Order Comment: Speci men Type: BLOOD SPECIMENOrdering Facility: [facility] Address: [address] [place] [address] Performed By: #### 2 4323-8 ####[facility] CLINICVJ [id number] [place] [address] [place] Sodium [Moles/Vol] 139 mmol/L Normal 136-144 [facility] Comment on above: Order Comment: Speci men Type: BLOOD SPECIMENOrdering Facility: [facility] Address: [address] [place] [address] Performed By: #### 2 4323-8 ####[facility] JACKSONVILLEHERMANN [id number] [place] [address] [place] Urea nitrogen [Mass/Vol] 7 mg/dL Normal 7-21 [facility] Comment on above: Order Comment: Speci men Type: BLOOD SPECIMENOrdering Facility: [facility] Address: [address] [place] [address] Performed By: #### 2 4323-8 ####[facility] JACKSONVILLENCLIA [id number] [place] [address] [place] [facility] DHEA-S [Mass/Vol] 194.2 ug/dL 148.0 - 407.0 ug/dL [facility] Comment on above: Reference ranges are age and gender specific. For additional information, reference range tables can be found in the laboratory test directory. The normal values are based on the following source: Dehydroepiandrosterone sulfate (DHEA S) [package insert V 17.0 [place]]. [facility] [place] [place]: June 2013. Interpretation and review of laboratory results Normal [facility] DHEA-S [Mass/Vol] 194.2 ug/dL Normal 148.0-407.0 [facility] Comment on above: Order Comment: Speci men Type: BLOOD SPECIMENOrdering Facility: [facility] Address: [address] [place] [address] Result Comment: Refe rence ranges are age and gender specific. For additional information, reference range tables can be found in the laboratory test directory. The normal values are based on the following source: Dehydroepiandrosterone sulfate (DHEA S) [package insert V 17.0 [place]]. [facility] [place] [place]: June 2013. Performed By: #### D RADHA, 28597-6, 2243-4, 99728-9 ####[facility] LABCLIA [id number] [place] [address] [place] ESTRADIOL-17B BLDon 03-04-20 E2 [Mass/Vol] 57 pg/mL [facility] Comment on above: This test is not dawson table for patients receiving treatment with the drug Fulvestrant (Faslodex). The drug causes an interference leading to falsely elevated estradiol results. Menstrual cycle Estradiol reference ranges: Follicular : < 234 pg/mL Ovulation : 41 to 398 pg/mL Luteal : < 342 pg/mL Estradiol reference ranges vary by gestational period: First trimester : 154 to 3243 pg/mL Second trimester : 1561 to 87243 pg/mL Third trimester : 8285 to >15045 pg/mL Post-menopausal Estradiol reference range: < 41 pg/mL Reference: 1. Estradiol - E2 (Estradiol III) [package insert V 3.0 [place]]. [facility], [place], [place], April 2016. Estradiol SerPl-mCncon 03-04 E2 [Mass/Vol] 57 pg/mL Normal [facility] Comment on above: Order Comment: Speci men Type: BLOOD SPECIMENOrdering Facility: [facility] Address: [address] [place] [address] Result Comment: This test is not suitable for patients receiving treatment with the drug Fulvestrant (Faslodex). The drug causes an interference leading to falsely elevated estradiol results. Menstrual cycle Estradiol reference ranges: Follicular : < 234 pg/mL Ovulation : 41 to 398 pg/mL Luteal : < 342 pg/mL Estradiol reference ranges vary by gestational period: First trimester : 154 to 3243 pg/mL Second trimester : 1561 to 79215 pg/mL Third trimester : 8285 to >64311 pg/mL Post-menopausal Estradiol reference range: < 41 pg/mL Reference: 1. Estradiol - E2 (Estradiol III) [package insert V 3.0 [place]]. [facility], [place], [place], April 2016. Performed By: #### D RADHA, 03939-8, 2243-4, 85937-8 ####[facility] LABCLIA [id number] [place] [address] [place] FERRITINon 03-04-2025 Ferritin [Mass/Vol] 30.9 ng/mL 14.7 - 2 05.1 ng/mL [facility] FOLLICLE STIMULATING HORMONE on 03-04-2025 Follitropin Qn 4.4 m[IU]/mL See comment mIU/mL [facility] Comment on above: Reference range: Follicular: 3.5-12.5 mIU/mL Ovulation: 4.7-21.5 mIU/mL Luteal: 1.7-7.7 mIU/mL Postmenopausal: 25.8-134.8 mIU/mL [facility] SerPl-aCncon 03-04-2025 Follitropin Qn 4.4 m[IU]/mL Normal See comment [facility] Comment on above: Order Comment: Speci men Type: BLOOD SPECIMENOrdering Facility: [facility] Address: [address] [place] [address] Result Comment: Refe rence range: Follicular: 3.5-12.5 mIU/mL Ovulation: 4.7-21.5 mIU/mL Luteal: 1.7-7.7 mIU/mL Postmenopausal: 25.8-134.8 mIU/mL Performed By: #### D RADHA, 70864-6, 2243-4, 65666-9 ####[facility] LABCLIA [id number] [place] [address] [place] Ferritin SerPl-mCncon 2024 Ferritin [Mass/Vol] 30.9 ng/mL Normal 14.7-205.1 [facility] Comment on above: Order Comment: Speci men Type: BLOOD SPECIMENOrdering Facility: [facility] Address: [address] [place] [address] Performed By: #### 2 276-4 ####[facility] LABCLIA [id number] [place] [address] [place] Ferritin [Mass/Vol]on 2024 Interpretation and review of laboratory results Normal [facility] HYDROXYPROGESTERONE-17on 17-HYDROXYPROGESTER ONE QUANTITATIVE BY HPLC-MS/MS, SERUM OR PLASMA 116.56 ng/dL Normal <=206.00 [facility] Comment on above: Order Comment: Speci men Type: BLOOD SPECIMENOrdering Facility: [facility] Address: [address] [place] [address] Result Comment: INTE RPRETIVE INFORMATION for 17-Hydroxyprogesterone in females: Follicular 15 to 70 ng/dL Luteal 35 to 290 ng/dL REFERENCE INTERVAL: 17-Hydroxyprogesterone Qnt, HPLC-MS/MS Access complete set of age- and/or gender-specific reference intervals for this test in the [employer] [facility] Laboratory Test Directory ([facility]). This test was developed and its performance characteristics determined by [employer]. It has not been cleared or approved by the US Food and Drug Administration. This test was performed in a CLIA certified laboratory and is intended for clinical purposes. Performed By: [facility] [address] [place] [address] Technology Engineer: Jhony Ritchie MD, PhD CLIA Number: [id number] Performed By: #### H PROG ####[employer] LABORATORIESCLIA [id number] [place] [id number] HbA1c (Bld)on 03-04-2025 Average glucose Estimated from glycated hemoglobin (Bld) [Mass/Vol] 97 mg/dL [facility] Comment on above: eAG: (Estimated aver age glucose) is a calculated value from HgbA1c and is automobile rental representative of the average blood glucose level in the last 2-3 month period. HbA1c (Bld) [Mass fraction] 5 % 4.3 - 5.6 % [facility] Comment on above: German Diabetes As sociation guidelines indicate that patients with HgbA1c in the range 5.7-6.4% are at increased risk for development of diabetes, and intervention by lifestyle modification may be beneficial. HgbA1c greater or equal to 6.5% is considered diagnostic of diabetes. [facility] Average glucose Estimated from glycated hemoglobin (Bld) [Mass/Vol] 97 mg/dL Normal [facility] Comment on above: Order Comment: Omero cervantes Type: BLOOD SPECIMENOrdering Facility: [facility] Address: [address] [place] [address] Result Comment: eAG: (Estimated average glucose) is a calculated value from HgbA1c and is automobile rental representative of the average blood glucose level in the last 2-3 month period. Performed By: #### 5 5454-3 ####[facility] LABCLIA [id number] [place] [address] [place] HbA1c (Bld) [Mass fraction] 5.0 % Normal 4.3-5.6 [facility] Comment on above: Order Comment: Omero cervantes Type: BLOOD SPECIMENOrdering Facility: [facility] Address: [address] [place] [address] Result Comment: Amer [place] Diabetes Association guidelines indicate that patients with HgbA1c in the range 5.7-6.4% are at increased risk for development of diabetes, and intervention by lifestyle modification may be beneficial. HgbA1c greater or equal to 6.5% is considered diagnostic of diabetes. Performed By: #### 5 5454-3 ####[facility] LABCLIA [id number] [address] [address] [place] Iron and Iron binding capaci ty panelon 03-04-2025 Interpretation and review of laboratory results Normal [facility] Iron [Mass/Vol] 102 ug/dL 41 - 186 ug/dL [facility] Iron binding capacity [Mass/Vol] 342 ug/dL 232 - 386 ug/dL [facility] Iron/TIBC [Molar ratio] 29.8 % 15.0 - 57.0 % [facility] Iron [Mass/Vol] 102 ug/dL Normal 41-186 [facility] Comment on above: Order Comment: Speci men Type: BLOOD SPECIMENOrdering Facility: [facility] Address: [address] [place] [address] Performed By: #### Adalberto GARCIA, 36606-5, 2243-4, 65610-4 ####[facility] LABIA [id number] [address] STATES OF [facility] Iron binding capacity [Mass/Vol] 342 ug/dL Normal 232-386 [facility] Comment on above: Order Comment: Speci men Type: BLOOD SPECIMENOrdering Facility: [facility] Address: [address] [place] [address] Performed By: #### Adalberto GARCIA, 67414-7, 2243-4, 97950-4 ####[facility] LABIA [id number] [address] [place] Iron/TIBC [Molar ratio] 29.8 % Normal 15.0-57.0 [facility] Comment on above: Order Comment: Speci men Type: BLOOD SPECIMENOrdering Facility: [facility] Address: [address] [place] [address] Performed By: #### Adalberto GARCIA, 26458-3, 2243-4, 68466-0 ####[facility] LABIA [id number] [place] [address] [place] LH SerPl-aCncon 03-04-2025 Lutropin Qn 7.6 m[IU]/mL Normal See comment [facility] Comment on above: Order Comment: Speci men Type: BLOOD SPECIMENOrdering Facility: [facility] Address: [address] [place] [address] Result Comment: Refe rence range: Follicular: 2.4-12.6 mIU/mL Midcycle: 14.0-95.6 mIU/mL Luteal: 1.0-11.4 mIU/mL [place]: 7.7-58.5 mIU/mL Performed By: #### L IPNF, 64181-0, 2842-3, 3016-3 ####[facility] LABCLIA [id number] [place] [address] [place] LIPID PANEL, NONFASTINGon Cholesterol [Mass/Vol] 185 mg/dL NINF - 200 mg/dL [facility] Comment on above: <200 mg/dL, Desirabl e 200-239 mg/dL, Borderline high >239 mg/dL, High HDL Cholesterol, Nonfasting 47 mg/dL 39 - PINF mg/dL [facility] Comment on above: 40-59 mg/dL, Accepta ble >59 mg/dL, High: Negative risk factor for coronary heart disease <40 mg/dL, Low: Positive risk factor for coronary heart disease Interpretation and review of laboratory results Abnormal [facility] LDL Cholesterol, Nonfasting 128 mg/dL High NINF - 100 mg/dL [facility] Comment on above: <100 mg/dL, Optimal 100-129 mg/dL, Near optimal/above optimal 130-159 mg/dL, Borderline high 160-189 mg/dL, High >189 mg/dL, Very high Secondary prevention optimal LDL Cholesterol levels are recommended to be < 70 mg/dL LDL/HDL Ratio, Nonfasting 2.72 mg/dL High NINF - 2.54 mg/dL [facility] Comment on above: Reference: 1. National Cholesterol Education Program ATP III Guideline At-A-Glance Quick Desk Reference: National Heart, Lung, and Blood Cunningham. National Institutes of Health. 2001: NIH Publication No. 01-3305. 2. An International Atherosclerosis Society position paper: global recommendations for the management of dyslipidemia: executive summary, Atherosclerosis. 2014: 232(2):410-413. Cut Points from the [facility]'s Prevalence Study for ages 20 to 24 years can be located in the following reference: Expert Panel on Integrated Guidelines for Cardiovascular Health and Risk Reduction in Children and Adolescents: National Heart, Lung and Blood Cunningham. Pediatrics. 2011:128(Suppl 5):E208-678. Non HDL Cholesterol, Nonfasting 138 mg/dL High NINF - 130 mg/dL [facility] Comment on above: <130 mg/dL, Optimal 130-159 mg/dL, Near optimal/above optimal 160-189 mg/dL, Borderline high 190-219 mg/dL, High >219 mg/dL, Very high Secondary prevention optimal non HDL Cholesterol levels are recommended to be <100 mg/dL Total Chol/HDL Ratio, Nonfasting 3.94 mg/dL NINF - 5.10 mg/dL [facility] Triglycerides, Nonfasting 52 mg/dL NINF - 150 mg/dL [facility] Comment on above: <150 mg/dL, Normal 150-199 mg/dL, Borderline high 200-499 mg/dL, High >499 mg/dL, Very high VLDL Cholesterol, Nonfasting 10 mg/dL NINF - 30 mg/dL [facility] Cholesterol [Mass/Vol] 185 mg/dL Normal <200 [facility] Comment on above: Order Comment: Omero cervantes Type: BLOOD SPECIMENOrdering Facility: [facility] Address: [address] [place] [address] Result Comment: <200 mg/dL, Desirable 200-239 mg/dL, Borderline high >239 mg/dL, High Performed By: #### L IPNF, 69320-1, 2842-3, 3016-3 ####[facility] LABCLIA [id number] [address] [place] HDL CHOLESTEROL, NF 47 mg/dL Normal >39 [facility] Comment on above: Order Comment: Omero cervantes Type: BLOOD SPECIMENOrdering Facility: [facility] Address: [address] [place] [address] Result Comment: 40-5 9 mg/dL, Acceptable >59 mg/dL, High: Negative risk factor for coronary heart disease <40 mg/dL, Low: Positive risk factor for coronary heart disease Performed By: #### L IPNF, 14887-4, 2842-3, 3016-3 ####[facility] LABCLIA [id number] [place] [address] [place] LDL CHOLESTEROL, NF 128 mg/dL High <100 [facility] Comment on above: Order Comment: Omero cervantes Type: BLOOD SPECIMENOrdering Facility: [facility] Address: [address] [place] [address] Result Comment: <100 mg/dL, Optimal 100-129 mg/dL, Near optimal/above optimal 130-159 mg/dL, Borderline high 160-189 mg/dL, High >189 mg/dL, Very high Secondary prevention optimal LDL Cholesterol levels are recommended to be < 70 mg/dL Performed By: #### L IPNF, 72318-2, 2842-3, 3016-3 ####[facility] LABCLIA [id number] [address] [place] LDL/HDL RATIO, NF 2.72 mg/dL High <2.54 [facility] Comment on above: Order Comment: Omero cervantes Type: BLOOD SPECIMENOrdering Facility: [facility] Address: [address] [place] [address] Result Comment: Refe rence: 1. National Cholesterol Education Program ATP III Guideline At-A-Glance Quick Desk Reference: National Heart, Lung, and Blood Cunningham. National Institutes of Health. 2001: NIH Publication No. 01-3305. 2. An International Atherosclerosis Society position paper: global recommendations for the management of dyslipidemia: executive summary, Atherosclerosis. 2014: 232(2):410-413. Cut Points from the [facility]'s Prevalence Study for ages 20 to 24 years can be located in the following reference: Expert Panel on Integrated Guidelines for Cardiovascular Health and Risk Reduction in Children and Adolescents: National Heart, Lung and Blood Cunningham. Pediatrics. 2011:128(Suppl 5):V477-049. Performed By: #### L IPNF, 72585-7, 2842-3, 3016-3 ####[facility] LABCLIA [id number] [place] [address] [place] NON HDL CHOL, NF 138 mg/dL High <130 [facility] Comment on above: Order Comment: Speci men Type: BLOOD SPECIMENOrdering Facility: [facility] Address: [address] [place] [address] Result Comment: <130 mg/dL, Optimal 130-159 mg/dL, Near optimal/above optimal 160-189 mg/dL, Borderline high 190-219 mg/dL, High >219 mg/dL, Very high Secondary prevention optimal non HDL Cholesterol levels are recommended to be <100 mg/dL Performed By: #### L IPNF, 92666-8, 2842-3, 3016-3 ####[facility] LABCLIA [id number] [address] [address] [place] T CHOL/HDL RATIO NF 3.94 mg/dL Normal <5.10 [facility] Comment on above: Order Comment: Speci men Type: BLOOD SPECIMENOrdering Facility: [facility] Address: [address] [place] [address] Performed By: #### L IPNF, 17461-2, 2842-3, 3016-3 ####[facility] LABCLIA [id number] [address] [address] [place] TRIGLYCERIDES, NF 52 mg/dL Normal <150 [facility] Comment on above: Order Comment: Speci men Type: BLOOD SPECIMENOrdering Facility: [facility] Address: [address] [place] [address] Result Comment: <150 mg/dL, Normal 150-199 mg/dL, Borderline high 200-499 mg/dL, High >499 mg/dL, Very high Performed By: #### L IPNF, 59349-7, 2842-3, 3016-3 ####[facility] LABCLIA [id number] [address] [address] [place] VLDL CHOLESTEROL, NF 10 mg/dL Normal <30 [facility] Comment on above: Order Comment: Speci men Type: BLOOD SPECIMENOrdering Facility: [facility] Address: [address] [place] [address] Performed By: #### L IPNF, 70001-4, 2842-3, 3016-3 ####[facility] LABIA [id number] [place] [id number] [place] LUTEINIZING HORMONEon 2024 Lutropin Qn 7.6 m[IU]/mL See comment mIU/mL [facility] Comment on above: Reference range: Follicular: 2.4-12.6 mIU/mL Midcycle: 14.0-95.6 mIU/mL Luteal: 1.0-11.4 mIU/mL [place]: 7.7-58.5 mIU/mL No Panel Informationon 03-04 Interpretation and review of laboratory results Normal [facility] PROLACTINon 03-04-2025 Prolactin [Mass/Vol] 18.5 ng/mL 4.4 - 33.8 ng/mL [facility] Comment on above: Prolactin test is pe rformed using the [employer] Electrochemiluminescence Immunoassay method. Results obtained with different methods or kits cannot be used interchangeably. Prolactin SerPl-mCncon 03-04 Prolactin [Mass/Vol] 18.5 ng/mL Normal 4.4-33.8 [facility] Comment on above: Order Comment: Speci men Type: BLOOD SPECIMENOrdering Facility: [facility] Address: [address] [place] [address] Result Comment: Prol actin test is performed using the [employer] Electrochemiluminescence Immunoassay method. Results obtained with different methods or kits cannot be used interchangeably. Performed By: #### L IPNF, 52109-7, 2842-3, 3016-3 ####[facility] LABIA [id number] [address] [address] [place] TESTOSTERONE, FREE AND TOTAL , BY EQUILIBRIUM ULTRAFILTRATION MASS SPECTROMETRYon 03-04-2025 Testosterone [Mass/Vol] 29.4 ng/dL Normal 10.0-55.0 [facility] Comment on above: Order Comment: Speci men Type: BLOOD SPECIMENOrdering Facility: [facility] Address: [address] [place] [address] Performed By: #### T FTEST ####[facility] LABCLIA [id number] [place] [address] Testosterone Free [Mass/Vol] 0.86 ng/dL High 0.10-0.85 [facility] Comment on above: Order Comment: Speci men Type: BLOOD SPECIMENOrdering Facility: [facility] Address: [address] [place] [address] Performed By: #### T FTEST ####[facility] LABCLIA [id number] [place] [address] Testosterone Free/Testosterone.t otal [Mass fraction] 2.94 % High 0.50-2.80 [facility] Comment on above: Order Comment: Speci men Type: BLOOD SPECIMENOrdering Facility: [facility] Address: [address] [place] [address] Performed By: #### T FTEST ####[facility] LABCLIA [id number] [place] [address] THYROID STIMULATING HORMONEo n 03-04-2025 TSH Qn 1.76 m[IU]/L [facility] Comment on above: If the patient is pr egnant, TSH reference range varies by gestational period: First Trimester (weeks 9-12): 0.180-2.990 mIU/L Second Trimester: 0.110-3.980 mIU/L Third Trimester: 0.480-4.710 mIU/L Kory Jonhson et al. A Practical Approach for the Verifications and Determination of Site- and Trimester-Specific Reference Intervals for Thyroid Function tests in . Thyroid, 2019:29:3:412-420. Mika Fong, et al. 2017 Guidelines of the [place] Thyroid Association for the Diagnosis and Management of Thyroid Disease during and the . Thyroid, 2017:27:3:315-389. TSH SerPl-aCncon 03-04-2025 TSH Qn 1.760 m[IU]/L Normal 0.270-4.200 [facility] Comment on above: Order Comment: Speci men Type: BLOOD SPECIMENOrdering Facility: [facility] Address: [address] [place] [address] Result Comment: If t he patient is , TSH reference range varies by gestational period: First Trimester (weeks 9-12): 0.180-2.990 mIU/L Second Trimester: 0.110-3.980 mIU/L Third Trimester: 0.480-4.710 mIU/L Kory Johnson et al. A Practical Approach for the Verifications and Determination of Site- and Trimester-Specific Reference Intervals for Thyroid Function tests in . Thyroid, 2019:29:3:412-420. Mika Fong, et al. 2017 Guidelines of the [place] Thyroid Association for the Diagnosis and Management of Thyroid Disease during and the . Thyroid, 2017:27:3:315-389. Performed By: #### L IPNF, 17393-6, 2842-3, 3016-3 ####[facility] LABCLIA [id number] [address] OF [facility] C. trachomatis+N. gonorrhoea e DNA AJAY+probe Ql (Unsp spec)on 02-28-2025 C. trachomatis rRNA AJAY+probe Ql (Unsp spec) Not detected Not detected [facility] Interpretation and review of laboratory results Normal [facility] N. gonorrhoeae rRNA AJAY+probe Ql (Unsp spec) Not detected Not detected [facility] This FDA-approved as say has been modified to accept rectal swabs self-collected in a healthcare setting. For self-collected rectal swabs, the test was developed and its performance characteristics determined by the [facility]'s [facility] Path[facility] Laboratory Medicine [place] ([facility]). It has not been cleared or approved by the FDA. [facility] is regulated under CLIA as qualified to perform high-complexity testing. This test is used for clinical purposes. It should not be regarded as investigational or for research. [facility] BACTERIAL VAGINOSIS NAATon 0 02-27-2025 Interpretation and review of laboratory results Normal [facility] Lactobacillus crispatus+gasseri+j ensenii + Gardnerella vaginalis + Atopobium vaginae rRNA AJAY+probe Ql (Vag fld) Not detected Not detected [facility] Lactobacillus crispatus+gasseri+j ensenii + Gardnerella vaginalis + Atopobium vaginae rRNA AJAY+probe Ql (Vag fld) Not detected Normal Not detected [facility] Comment on above: Order Comment: Speci men Type: SWABOrdering Facility: [facility] Address: [address] [place] [address] Performed By: #### SHENA CRAIGTV ####[facility] LABCLIA [id number] [address] [place] C. trachomatis+N. gonorrhoea e DNA AJAY+probe Ql (Unsp spec)on 02-27-2025 C. trachomatis rRNA AJAY+probe Ql (Unsp spec) Not detected Normal Not detected [facility] Comment on above: Order Comment: Speci men Type: SWABOrdering Facility: [facility] Address: [address] [place] [address] Performed By: #### 3 6902-5 ####[facility] LABCLIA [id number] [address] [place] N. gonorrhoeae rRNA AJAY+probe Ql (Unsp spec) Not detected Normal Not detected [facility] Comment on above: Order Comment: Speci men Type: SWABOrdering Facility: [facility] Address: [address] [place] [address] Performed By: #### 3 6902-5 ####[facility] LABCLIA [id number] [address] [place] THU/TRICHOMONAS NAATon 0 02-27-2025 C. glabrata RNA AJAY+probe Ql (Vag fld) Not detected Not detected [facility] Thu sp DNA AJAY+probe Ql (Vag fld) Not detected Not detected [facility] Comment on above: The Thu species group target includes C. albicans, C. tropicalis, C. parapsilosis, and C. dubliniensis. Interpretation and review of laboratory results Normal [facility] T. vaginalis DNA AJAY+probe Ql (Unsp spec) Not detected Not detected [facility] C. glabrata RNA AJAY+probe Ql (Vag fld) Not detected Normal Not detected [facility] Comment on above: Order Comment: Speci men Type: SWABOrdering Facility: [facility] Address: [address] [place] [address] Performed By: #### B VAMP, CVTV ####[facility] LABCLIA [id number] [place] [address] [place] Thu sp DNA AJAY+probe Ql (Vag fld) Not detected Normal Not detected [facility] Comment on above: Order Comment: Speci men Type: SWABOrdering Facility: [facility] Address: [address] [place] [address] Result Comment: The Thu species group target includes C. albicans, C. tropicalis, C. parapsilosis, and C. dubliniensis. Performed By: #### B VAMP, CVTV ####[facility] LABCLIA [id number] [place] [address] [place] T. vaginalis DNA AJAY+probe Ql (Unsp spec) Not detected Normal Not detected [facility] Comment on above: Order Comment: Speci men Type: SWABOrdering Facility: [facility] Address: [address] [place] [address] Performed By: #### B VAMP, CVTV ####[facility] LABCLIA [id number] [place] [address] [place] CNOVon 02-27-2025 CNOV Office Visit (OBGYWM ) ELSA LOUIE ([id number]) 1 F Date Time Provider Department 02/27/25 2:00 PM NICOLETTE NEUMANN During your visit today, we recorded the following information about you: Blood pressure Weight Last Period 110/66 78.9 kg 02/11/25 Nicolette Neumann APRN.MARIANNA 03/04/2025 5:11 PM Signed Elsa Louie is a 19 year old female who presents for problem visit for . HPI: Seen PCP and then referred to specialist. Tried several controls but didn't get any resolution. Seen provider at [place]. Menses have been never been normal. Menarche at age 11-12. Always heavy, lastes 7-10 days. Always abnormal, they come whenever they want. Sexually active at age 14 and went on depo. Had menses/bleeding every day for 2 years. Became anemic during that time. Stopped depo, and didn't start anything new, was still bleeding daily 6 months after it stopped. Went to PCP and attempted an exam and thought she seen polyps? Went to another provider and US completed but declined TVUS. After being off of depo about 6 months started OCP. With all OCP still had bleeding every day. After 9 months of using pills just stopped everything. Thinks she used 2-3 different pills. Will have bleeding every 2-6 weeks, 7-10 days, light-heavy, and cramps. Cramps seem to be worth with the light bleeding. Feels light headed and dizzy but also has POTS Will take midol for pain and felt it used to work but not at this time. The only thing that helps is the bath. At this time, has not been on anything for menses. Feels she has a weight or bowling ball in her vaginal area. Feels heaviness not painful but uncomfortable. Currently engaged not sexually active at this time. Last time she was sexually was about 2 years ago and painful when she did engage in sex and cramp after. Admits to pain with urination and with bowel movements. Will also have cramping on and off all the time. 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 No pertinent surgical history. FAMILY HISTORY Problem Relation Age of Onset Breast Cancer Maternal Grandmother Social History Tobacco Use Smoking status: Never Smokeless tobacco: Never Substance Use Topics Alcohol use: Never Drug use: Never No current outpatient medications on file. No current facility-administered medications for this visit. Allergies As of Date: 02/27/2025 (No Known Allergies) Fully Assessed 02/27/2025 REVIEW OF SYSTEMS Abdomen: No bloating, early satiety, indigestion, or increased flatulence. No abdominal pain, nausea, vomiting, diarrhea, or constipation. Bladder: No dysuria, gross hematuria, urinary frequency, urinary urgency, or incontinence. Breast: No breast lumps, nipple d/c, overlying skin changes, redness or skin retraction. Expanded ROS: N/A Allergies and current medication updated:Yes SENSITIVE EXAM: The sensitive examination was discussed with the Patient or Patient's Authorized Clinic Nurse. As applicable, any other physician, advance practice provider, medical student, or other health professional student that will be observing or involved in the sensitive examination for educational or training purposes was discussed with the Patient or Authorized Clinic Nurse. The Patient or Authorized Clinic Nurse has agreed to proceed with the sensitive examination. (Sensitive examination includes inspection and/or palpation of the breasts, pelvis, prostate and anorectal regions). EXAM: BP 110/66 Wt 174 lb (78.9kg) LMP 02/11/2025 GENERAL: pleasant, female in no apparent distress HEENT: Normocephalic, atraumatic, mucus membranes moist, and no lesions NECK: Supple, full range of motion, no adenopathy, and thyroid normal DERMATOLOGY: Normal, without lesions, non-icteric, and non-hirsute CHEST: Normal inspiratory effort ABDOMEN: soft, non-tender, and no masses PELVIC: external genitalia normal, normal Bartholin's glands, urethra, [place]'s glands, no vulvar lesions, no cervical lesions, good vaginal support, physiologic discharge present, normal appearing perineal body and perianal region BIMANUAL: uterus normal size, shape and consistency, no adnexal masses,and Moderate tenderness NEURO: alert and oriented x3,exam grossly non-focal EXTREMITIES: normal Assessment AND Plan Abnormal uterine bleeding (AUB) Orders: PELVIC US WHI; Future THYROID STIMULATING HORMONE; Future PROLACTIN; Future TESTOSTERONE, FREE AND TOTAL, BY EQUILIBRIUM ULTRAFILTRATION MASS SPECTROMETRY; Future DHEA-S BLD; Fu (more content not included)... Normal [facility] PAP TESTon 02-27-2025 ADEQUACY Normal [facility] Comment on above: Order Comment: Speci men Type: FLUID SPECIMENOrdering Facility: [facility] Address: [address] [place] [address] Result Comment: Sati sfactory for interpretation. Transformation zone present Performed By: #### L [id number] ####[facility] LABCLIA [id number] [address] [address] [place] CASE REPORT Normal [facility] Comment on above: Order Comment: Speci men Type: FLUID SPECIMENOrdering Facility: [facility] Address: [address] [place] [address] Result Comment: Gyne cologic Cytology Report Case: [id number] Authorizing Provider: Nicolette Neumann APRN.CNApril Collected: 02/27/2025 04:16 PM Ordering Location: OB/Gynecology Received: 02/27/2025 04:40 PM First Screen: [place] CT, ASCP Specimen: Pap Test, ThinPrep, Cervix Performed By: #### L [id number] ####[facility] LABCLIA [id number] [address] [address] [place] CLINICAL HISTORY, CYTOLOGY, DIRECTOR OF RECRUITMENT AND ADMISSIONS Routine Exam Normal [facility] Comment on above: Order Comment: Speci men Type: FLUID SPECIMENOrdering Facility: [facility] Address: [address] [place] [address] Performed By: #### L [id number] ####[facility] LABCLIA [id number] [address] [address] [place] FINAL PERFORMING LAB Normal [facility] Comment on above: Order Comment: Speci men Type: FLUID SPECIMENOrdering Facility: [facility] Address: [address] [place], [place] [address] Result Comment: Tech nical component, obstetric anaesthetist screening performed at [facility], [address] [place] [address] [place] [address] CLIA# [id number] Diagnostic interpretation performed at [facility], [address] [place] [address] [place] [address] CLIA# [id number] Technology Engineer: Dakota Vanegas M.D. Performed By: #### L [id number] ####[facility] LABCLIA [id number] [address] [place] [address] [place] INTERPRETATION, CYTOLOGY, DIRECTOR OF RECRUITMENT AND ADMISSIONS Normal [facility] Comment on above: Order Comment: Speci men Type: FLUID SPECIMENOrdering Facility: [facility] Address: [address] [place] [address] Result Comment: Nega tive for intraepithelial lesion or malignancy. at 1515 EDT Performed By: #### L [id number] ####[facility] LABCLIA [id number] [place] [id number] [place] LMP 02/11/2025 Normal [facility] Comment on above: Order Comment: Speci men Type: FLUID SPECIMENOrdering Facility: [facility] Address: [address] [place] [address] Performed By: #### L [id number] ####[facility] LABCLIA [id number] [address] [place] [address] [place] PAP DISCLAIMER COMMENT The Pap Smear is a screening test for cervical cancer. False negative results occur with all screening tests, emphasizing the need for rescreening at recommended intervals, and clinical correlation. Normal [facility] Comment on above: Order Comment: Speci men Type: FLUID SPECIMENOrdering Facility: [facility] Address: [address] [place] [address] Performed By: #### L [id number] ####[facility] LABCLIA [id number] [address] [place] [address] [place] PAP ENERGY BROKER COMMENT This specimen has be en analyzed by the ThinPrep Imaging System, an automated imaging and review system, which assists the laboratory in evaluating cells on ThinPrep Pap tests. Following automated imaging, selected pearl from every slide are reviewed by a obstetric anaesthetist. Normal [facility] Comment on above: Order Comment: Speci men Type: FLUID SPECIMENOrdering Facility: [facility] Address: [address] [place] [address] Performed By: #### L [id number] ####[facility] LABCLIA [id number] [place] [address] [place] .Auto Diffon 11-21-2024 Basophil, Absolute 0.0 10 3/mcL Normal 0.0-0.2 [facility] Comment on above: Performed By: #### C HELEN, ESTRELLA REYES, GFR, CMP, ADIFF, LIP #### [address] [address] Basophils/100 WBC (Bld) 0.1 % Normal 0.0-2.5 [facility] Comment on above: Performed By: #### C HELEN, ESTRELLA REYES, GFR, CMP, ADIFF, LIP #### [address] [address] Eosinophil, Absolute 0.0 10 3/mcL Normal 0.0-0.7 [facility] Comment on above: Performed By: #### C AMY CERVANTES MDW, GFR, CMP, ADIFF, LIP #### [address] [address] Eosinophils/100 WBC (Bld) 0.2 % Normal 0.0-7.0 [facility] Comment on above: Performed By: #### C AMY CERVANTES MDW, GFR, CMP, ADIFF, LIP #### [address] [address] Lymphocyte, Absolute 0.3 10 3/mcL Low 0.9-4.3 [facility] Comment on above: Performed By: #### C AMY CERVANTES MDW, GFR, CMP, ADIFF, LIP #### [address] [address] Lymphocytes/100 WBC (Bld) 2.4 % Low 20.0-40.0 [facility] Comment on above: Performed By: #### C BC, ANEU, MDW, GFR, CMP, ADIFF, LIP #### [address] [address] Monocyte, Absolute 0.5 10 3/mcL Normal 0.1-1.4 [facility] Comment on above: Performed By: #### C BC, ANEU, MDW, GFR, CMP, ADIFF, LIP #### [address] [address] Monocytes/100 WBC (Bld) 3.9 % Normal 2.0-13.0 [facility] Comment on above: Performed By: #### C BC, ANEU, MDW, GFR, CMP, ADIFF, LIP #### [address] [address] Neutrophils/100 WBC (Bld) 93.4 % High 50.0-75.0 [facility] Comment on above: Performed By: #### C BC, ANEU, MDW, GFR, CMP, ADIFF, LIP #### [address] [address] .GFRon 11-21-2024 GFR Non- 89 ml/min/1.73sqm Normal [facility] Comment on above: Result Comment: GFR Population mean for , Non- Americans Ages 20-29 = 116 mL/min/1.73 sq.m. Ages 30-39 = 107 mL/min/1.73 sq.m. Ages 40-49 = 99 mL/min/1.73 sq.m. Ages 50-59 = 93 mL/min/1.73 sq.m. Ages 60-69 = 85 mL/min/1.73 sq.m. Ages 70+ = 75 mL/min/1.73 sq.m. Chronic Kidney Disease: Less than 60 mL/min/1.73 square meters End Stage Renal Disease: Less than 15 mL/min/1.73 square meters Performed By: #### P REGU, [place], UA #### [address] [address] GFR 108 ml/min/1.73sqm Normal [facility] Comment on above: Result Comment: GFR Population mean for , Non- Americans Ages 20-29 = 116 mL/min/1.73 sq.m. Ages 30-39 = 107 mL/min/1.73 sq.m. Ages 40-49 = 99 mL/min/1.73 sq.m. Ages 50-59 = 93 mL/min/1.73 sq.m. Ages 60-69 = 85 mL/min/1.73 sq.m. Ages 70+ = 75 mL/min/1.73 sq.m. Chronic Kidney Disease: Less than 60 mL/min/1.73 square meters End Stage Renal Disease: Less than 15 mL/min/1.73 square meters Performed By: #### P REGU, [place], UA #### [place] [address] .MDWon 11-21-2024 Monocyte Distribution Width 19.33 Normal 0.00-20.00 [facility] Comment on above: Result Comment: For ED adult patients suspected of sepsis, MDW<=20.0 does not rule out sepsis or risk of sepsis Performed By: #### C BC, ANEU, MDW, GFR, CMP, ADIFF, LIP #### [place] [id number] .NEUABSon 11-21-2024 Neutrophil, Absolute 13.0 10 3/mcL High 2.3-8.1 [facility] Comment on above: Performed By: #### C BC, ANEU, MDW, GFR, CMP, ADIFF, LIP #### [place] [id number] .Urinalysis Microscopic (AO) on 11-21-2024 UA RBC LOADED Abnormal None Seen [facility] Comment on above: Performed By: #### P REGU, UAMICAO, UA #### [place] [id number] UA Squam Epithelial 0-5 Abnormal None Seen [facility] Comment on above: Performed By: #### P REGU, UAMICAO, UA #### [place] [address] UA WBC 5-10 Abnormal None Seen [facility] Comment on above: Performed By: #### P REGU, UAMICAO, UA #### [address] [address] CBCon 11-21-2024 Erythrocyte distribution width (RBC) [Ratio] 13.2 % Normal 11.5-15.5 [facility] Comment on above: Performed By: #### C BC, ANEU, MDW, GFR, CMP, ADIFF, LIP #### [address] [address] Hematocrit (Bld) [Volume fraction] 41.8 % Normal 34.0-46.0 [facility] Comment on above: Performed By: #### C BC, ANEU, MDW, GFR, CMP, ADIFF, LIP #### [address] [address] Hgb 14.3 G/dL Normal 12.0-16.0 [facility] Comment on above: Performed By: #### C BC, ANEU, MDW, GFR, CMP, ADIFF, LIP #### [address] [address] MCH (RBC) [Entitic mass] 27.7 pg Normal 27.0-33.0 [facility] Comment on above: Performed By: #### C BC, ANEU, MDW, GFR, CMP, ADIFF, LIP #### [address] [address] MCHC 34.3 G/dL Normal 32.0-36.0 [facility] Comment on above: Performed By: #### C BC, ANEU, MDW, GFR, CMP, ADIFF, LIP #### [address] [address] MCV (RBC) [Entitic vol] 80.6 fL Normal 80.0-99.0 [facility] Comment on above: Performed By: #### C BC, ANEU, MDW, GFR, CMP, ADIFF, LIP #### [address] [address] Platelet 278 10 3/mcL Normal 150-450 [facility] Comment on above: Performed By: #### C HELEN, AMY, W, GFR, CMP, ADIFF, LIP #### [address] [address] Platelet mean volume (Bld) [Entitic vol] 8.0 fL Normal 6.6-10.5 [facility] Comment on above: Performed By: #### C BC, AMY, MDW, GFR, CMP, ADIFF, LIP #### [address] [address] RBC 5.18 10 6/mcL Normal 4.10-5.30 [facility] Comment on above: Performed By: #### C BC, AMY, MDW, GFR, CMP, ADIFF, LIP #### [address] [address] WBC 14.0 10 3/mcL High 4.5-10.8 [facility] Comment on above: Performed By: #### C BC, AMY, MDW, GFR, CMP, ADIFF, LIP #### [place] [address] CMPon 11-21-2024 Albumin Level 4.0 G/dL Normal 3.5-5.0 [facility] Comment on above: Performed By: #### C HELEN, ANEU, MDW, GFR, CMP, ADIFF, LIP #### [place] [address] Albumin/Globulin [Mass ratio] 1.3 {ratio} Normal 1.1-2.5 [facility] Comment on above: Performed By: #### C BC, AMY, MDW, GFR, CMP, ADIFF, LIP #### [address] [address] ALP [Catalytic activity/Vol] 103 U/L Normal 40-135 [facility] Comment on above: Performed By: #### C BC, AMY, MDW, GFR, CMP, ADIFF, LIP #### [address] [address] ALT [Catalytic activity/Vol] 21 U/L Normal 14-59 [facility] Comment on above: Performed By: #### C AMY CERVANTES MDW, GFR, CMP, ADIFF, LIP #### [address] [address] AST [Catalytic activity/Vol] 22 U/L Normal 10-40 [facility] Comment on above: Performed By: #### C AMY CERVANTES MDW, GFR, CMP, ADIFF, LIP #### [address] [address] Bili Total 0.6 mg/dL Normal 0.2-1.0 [facility] Comment on above: Result Comment: Use of this assay is not recommended for patients undergoing treatment with eltrombopag due to the potential for falsely elevated results. Performed By: #### C AMY CERVANTES MDW, GFR, CMP, ADIFF, LIP #### [place] [address] BUN/Creatinine Ratio 12 ratio Normal 7-27 [facility] Comment on above: Performed By: #### C AMY CERVANTES MDW, GFR, CMP, ADIFF, LIP #### [address] [address] Calcium [Mass/Vol] 8.3 mg/dL Low 8.4-10.2 [facility] Comment on above: Performed By: #### C AMY CERVANTES MDW, GFR, CMP, ADIFF, LIP #### [address] [address] Chloride [Moles/Vol] 107 mmol/L Normal 98-107 [facility] Comment on above: Performed By: #### C AMY CERVANTES MDW, GFR, CMP, ADIFF, LIP #### [address] [address] CO2 [Moles/Vol] 24 mmol/L Normal 22-29 [facility] Comment on above: Performed By: #### C AMY CERVANTES MDW, GFR, CMP, ADIFF, LIP #### [address] [address] Creatinine [Mass/Vol] 0.81 mg/dL Normal 0.55-1.02 [facility] Comment on above: Result Comment: Test ing performed on Siemens Dimension EXL analyzer using a modified kinetic Joseph technique. Performed By: #### C BC, ANEU, MDW, GFR, CMP, ADIFF, LIP #### [address] [address] Electrolyte Balance 12.0 mEq/L Normal 4.0-15.0 [facility] Comment on above: Performed By: #### C BC, ANEU, MDW, GFR, CMP, ADIFF, LIP #### [address] [address] Globulin 3.1 G/dL Normal [facility] Comment on above: Performed By: #### C BC, ANEU, MDW, GFR, CMP, ADIFF, LIP #### [address] [address] Glucose [Mass/Vol] 103 mg/dL Normal 70-105 [facility] Comment on above: Performed By: #### C BC, ANEU, MDW, GFR, CMP, ADIFF, LIP #### [address] [address] Potassium [Moles/Vol] 3.6 mmol/L Normal 3.5-5.1 [facility] Comment on above: Performed By: #### C BC, ANEU, MDW, GFR, CMP, ADIFF, LIP #### [address] [address] Sodium [Moles/Vol] 143 mmol/L Normal 136-145 [facility] Comment on above: Performed By: #### C BC, ANEU, MDW, GFR, CMP, ADIFF, LIP #### [address] [address] Total Protein 7.1 G/dL Normal 6.4-8.2 [facility] Comment on above: Performed By: #### C BC, ANEU, MDW, GFR, CMP, ADIFF, LIP #### [facility] [address], [place] [address] Urea nitrogen [Mass/Vol] 10 mg/dL Normal 7-18 [facility] Comment on above: Performed By: #### C HELEN, ESTRELLA REYES, GFR, CMP, ADIFF, LIP #### [facility] [address], [place] [address] LABORATORYOrdered By: Bobbi Simon on 11-21-2024 Appearance (U) Slightly Cloudy *ABN* (11/21/24 11:38 PM) Invalid Interpretation Code Clear AO Auto Urine SS Bilirubin Ql (U) Negative (11/21/24 11:38 PM) Normal Negative AO Auto Urine SS Color (U) Yellow (11/21/24 11:38 PM) Normal AO Auto Urine SS Glucose Test strip (U) [Mass/Vol] Negative Normal Negative AO Auto Urine SS HCG ( test) Ql Negative (11/21/24 11:38 PM) Normal AO Manual Urine SS Hemoglobin Auto test strip (U) [Mass/Vol] Large *ABN* (11/21/24 11:38 PM) Invalid Interpretation Code Negative AO Auto Urine SS Ketones Ql (U) Negative Normal Negative AO Auto Urine SS test (u) int Not detected Invalid Interpretation Code AO Manual Urine SS UA Leuk Est Trace *ABN* (11/21/24 11:38 PM) Invalid Interpretation Code Negative AO Auto Urine SS UA Nitrite Negative (11/21/24 11:38 PM) Normal Negative AO Auto Urine SS UA pH 5.5 (11/21/24 11:38 PM) Normal 5.0 - 8.0 AO Auto Urine SS UA Protein 30 mg/dL Normal Negative AO Auto Urine SS UA RBC LOADED /HPF Invalid Interpretation Code None Seen AO Auto Urine SS UA Spec Grav >=1.030 *ABN* (11/21/24 11:38 PM) Invalid Interpretation Code 1.015-1.025 AO Auto Urine SS UA Specimen Type Void (11/21/24 11:38 PM) Normal AO Auto Urine SS UA Squam Epithelial 0-5 /HPF Invalid Interpretation Code None Seen AO Auto Urine SS UA Urobilinogen 0.2 E.U./dL Normal 0.2-1.0 AO Auto Urine SS WBC LM.HPF (Urine sed) [#/Area] 5-10 /HPF Invalid Interpretation Code None Seen AO Auto Urine SS LABORATORYOrdered By: SYSTEM SYSTEM on 11-21-2024 Albumin BCP dye [Mass/Vol] 4.0 G/dL Normal 3.5 - 5.0 G/dL AO ADM SS Albumin/Globulin [Mass ratio] 1.3 {ratio} Normal 1.1 - 2.5 ratio AO ADM SS ALP [Catalytic activity/Vol] 103 U/L Normal 40 - 135 U/L AO ADM SS ALT With P-5'-P [Catalytic activity/Vol] 21 U/L Normal 14 - 59 U/L AO ADM SS AST With P-5'-P [Catalytic activity/Vol] 22 U/L Normal 10 - 40 U/L AO ADM SS Basophils (Bld) [#/Vol] 0.0 103/mcL Normal 0.0 - 0.2 10^3/mcL AO Workflow SS Basophils/100 WBC (Bld) 0.1 % Normal 0.0 - 2.5 % AO Workflow SS Bilirubin [Mass/Vol] 0.6 mg/dL Normal 0.2 - 1.0 mg/dL AO ADM SS Comment on above: Interpretive Data: U se of this assay is not recommended for patients undergoing treatment with eltrombopag due to the potential for falsely elevated results. Calcium [Mass/Vol] 8.3 mg/dL Low 8.4 - 10. 2 mg/dL AO ADM SS Chloride [Moles/Vol] 107 mmol/L Normal 98 - 107 mmol/L AO ADM SS CO2 [Moles/Vol] 24 mmol/L Normal 22 - 29 mmol/L AO ADM SS Creatinine [Mass/Vol] 0.81 mg/dL Normal 0.55 - 1.02 mg/dL AO ADM SS Comment on above: Interpretive Data: T esting performed on Siemens Dimension EXL analyzer using a modified kinetic Joseph technique. Electrolyte Balance 12.0 mEq/L Normal 4.0 - 15 .0 mEq/L AO ADM SS Eosinophil, Absolute 0.0 103/mcL Normal 0.0 - 0.7 10^3/mcL AO Workflow SS Eosinophils/100 WBC (Bld) 0.2 % Normal 0.0 - 7.0 % AO Workflow SS Erythrocyte distribution width (RBC) [Ratio] 13.2 % Normal 11.5 - 15.5 % AO Workflow SS GFR/1.73 sq M.predicted among blacks MDRD (S/P/Bld) [Vol rate/Area] 108 ml/min/1.73sqm Invalid Interpretation Code AO Chemistry S Comment on above: Interpretive Data: GFR Population mean for , Non- Americans Ages 20-29 = 116 mL/min/1.73 sq.m. Ages 30-39 = 107 mL/min/1.73 sq.m. Ages 40-49 = 99 mL/min/1.73 sq.m. Ages 50-59 = 93 mL/min/1.73 sq.m. Ages 60-69 = 85 mL/min/1.73 sq.m. Ages 70+ = 75 mL/min/1.73 sq.m. Chronic Kidney Disease: Less than 60 mL/min/1.73 square meters End Stage Renal Disease: Less than 15 mL/min/1.73 square meters GFR/1.73 sq M.predicted among non-blacks MDRD (S/P/Bld) [Vol rate/Area] 89 ml/min/1.73sqm Invalid Interpretation Code AO Chemistry S Comment on above: Interpretive Data: GFR Population mean for , Non- Americans Ages 20-29 = 116 mL/min/1.73 sq.m. Ages 30-39 = 107 mL/min/1.73 sq.m. Ages 40-49 = 99 mL/min/1.73 sq.m. Ages 50-59 = 93 mL/min/1.73 sq.m. Ages 60-69 = 85 mL/min/1.73 sq.m. Ages 70+ = 75 mL/min/1.73 sq.m. Chronic Kidney Disease: Less than 60 mL/min/1.73 square meters End Stage Renal Disease: Less than 15 mL/min/1.73 square meters Globulin 3.1 G/dL Invalid Interpretation Code AO ADM SS Glucose [Mass/Vol] 103 mg/dL Normal 70 - 105 mg/dL AO ADM SS Hematocrit (Bld) [Volume fraction] 41.8 % Normal 34.0 - 46.0 % AO Workflow SS Hemoglobin (Bld) [Mass/Vol] 14.3 G/dL Normal 12.0 - 16.0 G/dL AO Workflow SS Lipase [Catalytic activity/Vol] 18 U/L Normal 16 - 77 U/L AO ADM SS Lymphocytes (Bld) [#/Vol] 0.3 103/mcL Low 0.9 - 4.3 10^3/mcL AO Workflow SS Lymphocytes/100 WBC (Bld) 2.4 % Low 20.0 - 40.0 % AO Workflow SS MCH (RBC) [Entitic mass] 27.7 pg Normal 27.0 - 33.0 pg AO Workflow SS MCHC 34.3 G/dL Normal 32.0 - 36.0 G/dL AO Workflow SS MCV (RBC) [Entitic vol] 80.6 fL Normal 80.0 - 99.0 fL AO Workflow SS Monocyte distribution width Auto (Bld) [Entitic vol] 19.33 1 Normal 0.00 - 20.00 AO Workflow SS Comment on above: Result Comment: For ED adult patients suspected of sepsis, MDW<=20.0 does not rule out sepsis or risk of sepsis Monocytes (Bld) [#/Vol] 0.5 103/mcL Normal 0.1 - 1.4 10^3/mcL AO Workflow SS Monocytes/100 WBC (Bld) 3.9 % Normal 2.0 - 13.0 % AO Workflow SS Neutrophils (Bld) [#/Vol] 13.0 103/mcL High 2.3 - 8.1 10^3/mcL AO Workflow SS Neutrophils/100 WBC (Bld) 93.4 % High 50.0 - 75.0 % AO Workflow SS Platelet mean volume (Bld) [Entitic vol] 8.0 fL Normal 6.6 - 10.5 fL AO Workflow SS Platelets (Bld) [#/Vol] 278 103/mcL Normal 150 - 450 10^3/mcL AO Workflow SS Potassium [Moles/Vol] 3.6 mmol/L Normal 3.5 - 5.1 mmol/L AO ADM SS Protein [Mass/Vol] 7.1 G/dL Normal 6.4 - 8.2 G/dL AO ADM SS RBC (Bld) [#/Vol] 5.18 106/mcL Normal 4.10 - 5.3 0 10^6/mcL AO Workflow SS Sodium [Moles/Vol] 143 mmol/L Normal 136 - 145 mmol/L AO ADM SS Urea nitrogen [Mass/Vol] 10 mg/dL Normal 7 - 18 mg/dL AO ADM SS Urea nitrogen/Creatinine [Mass ratio] 12 ratio Normal 7 - 27 ratio AO ADM SS WBC (Bld) [#/Vol] 14.0 103/mcL High 4.5 - 10.8 10^3/mcL AO Workflow SS LIPon 11-21-2024 Lipase Level 18 U/L Normal 16-77 [facility] Comment on above: Performed By: #### C BC, ANEU, MDW, GFR, CMP, ADIFF, LIP #### [place] [address] PREGUon 11-21-2024 HCG ( test) Ql (U) Negative Normal [facility] Comment on above: Performed By: #### P REGU, UAMICAO, UA #### [place] [address] test (u) int Not detected Invalid Interpretation Code [facility] Comment on above: Performed By: #### P REGU, UAMICAO, UA #### [place] [address] UAon 11-21-2024 Color (U) Yellow Normal [facility] Comment on above: Performed By: #### P REGU, UAMICAO, UA #### [place] [address] Glucose (U) [Mass/Vol] Negative Normal Negative [facility] Comment on above: Performed By: #### P REGU, UAMICAO, UA #### [place] [address] Ketones Ql (U) Negative Normal Negative [facility] Comment on above: Performed By: #### P REGU, UAMICAO, UA #### [place] [address] UA Appear Slightly Cloudy Abnormal Clear [facility] Comment on above: Performed By: #### P REGU, UAMICAO, UA #### [address] [address] UA Blood Large Abnormal Negative [facility] Comment on above: Performed By: #### P REGU, UAMICAO, UA #### [place] [address] UA Leuk Est Trace Abnormal Negative [facility] Comment on above: Performed By: #### P REGU, UAMICAO, UA #### [place] [address] UA Nitrite Negative Normal Negative [facility] Comment on above: Performed By: #### P REGU, UAMICAO, UA #### [place] [address] UA pH 5.5 Normal 5.0 - 8.0 [facility] Comment on above: Performed By: #### P REGU, UAMICAO, UA #### [place] [address] UA Protein 30 mg/dL Normal Negative [facility] Comment on above: Performed By: #### P REGU, UAMICAO, UA #### [place] [address] UA Spec Grav >=1.030 Abnormal 1.015-1.025 [facility] Comment on above: Performed By: #### P REGU, UAMICAO, UA #### [place] [address] UA Specimen Type Void Normal [facility] Comment on above: Performed By: #### P REGU, UAMICAO, UA #### [place] [address] UA Urobilinogen 0.2 E.U./dL Normal 0.2-1.0 [facility] Comment on above: Performed By: #### P REGU, UAMICAO, UA #### [place] [address] Urobilinogen (U) [Mass/Vol] Negative Normal Negative [facility] Comment on above: Performed By: #### P REGU, UAMICAO, UA #### [place] [address] US ABD RIGHT UPPER QUADRANTo n 11-19-2024 US ABD RIGHT UPPER QUADRANT * * *Final Report* * * DATE OF EXAM: Nov 19 2024 11:27AM WRU 1032 - US ABD RIGHT UPPER QUADRANT / PROCEDURE REASON: Bloating * * * * Physician Interpretation * * * * EXAMINATION: RIGHT UPPER QUADRANT ULTRASOUND CLINICAL HISTORY: Bloating TECHNIQUE: Sonography of the right upper quadrant was performed. Images were obtained and stored in a permanent archive and interpreted remotely. MQ: URUQ_2 COMPARISON: None. RESULT: Pancreas: Normal sonographic appearance. Portions obscured: tail Liver: Echotexture: Normal, homogeneous. Echogenicity: Mild increased Surface contour: Smooth Lesions: None. Biliary: No intrahepatic biliary duct dilation. CBD: 0.3 cm at the hilum. Gallbladder: Normal caliber -Contents: No cholelithiasis -Wall: Normal -Other: No pericholecystic fluid. Right Kidney: Normal cortical echogenicity. No hydronephrosis. Ascites: None. IMPRESSION: Mildly increased hepatic parenchymal echogenicity suggests mild hepatic steatosis. Candy Spreader Helper: HELGA Transcribe Date/Time: Nov 19 2024 4:10P Dictated by : LIBORIO PHELPS MD This examination was interpreted and the report reviewed and electronically signed by: LIBORIO PHELPS MD on Nov 19 2024 4:11PM EST [id number] Normal [facility] US Abdomen RUQon 11-19-2024 IMPRESSION: Mildly increased hepatic parenchymal echogenicity suggests mild hepatic steatosis. Candy Spreader Helper: [facility] Transcribe Date/Time: Nov 19 2024 4:10P Dictated by : LIBORIO PHELPS MD This examination was interpreted and the report reviewed and electronically signed by: LIBORIO PHELPS MD on Nov 19 2024 4:11PM EST DIVISION OF RADIOLOGY * * *Final Report* * * DATE OF EXAM: Nov 19 2024 11:27AM WRU 1032 - US ABD RIGHT UPPER QUADRANT / PROCEDURE REASON: Bloating * * * * Physician Interpretation * * * * EXAMINATION: RIGHT UPPER QUADRANT ULTRASOUND CLINICAL HISTORY: Bloating TECHNIQUE: Sonography of the right upper quadrant was performed. Images were obtained and stored in a permanent archive and interpreted remotely. MQ: URUQ_2 COMPARISON: None. RESULT: Pancreas: Normal sonographic appearance. Portions obscured: tail Liver: Echotexture: Normal, homogeneous. Echogenicity: Mild increased Surface contour: Smooth Lesions: None. Biliary: No intrahepatic biliary duct dilation. CBD: 0.3 cm at the hilum. Gallbladder: Normal caliber -Contents: No cholelithiasis -Wall: Normal -Other: No pericholecystic fluid. Right Kidney: Normal cortical echogenicity. No hydronephrosis. Ascites: None. DIVISION OF RADIOLOGY Provider, Dustin Ceron [facility] - 11/19/2024 * * *Final Report* * * DATE OF EXAM: Nov 19 2024 11:27AM WRU 1032 - US ABD RIGHT UPPER QUADRANT / PROCEDURE REASON: Bloating * * * * Physician Interpretation * * * * EXAMINATION: RIGHT UPPER QUADRANT ULTRASOUND CLINICAL HISTORY: Bloating TECHNIQUE: Sonography of the right upper quadrant was performed. Images were obtained and stored in a permanent archive and interpreted remotely. MQ: URUQ_2 COMPARISON: None. RESULT: Pancreas: Normal sonographic appearance. Portions obscured: tail Liver: Echotexture: Normal, homogeneous. Echogenicity: Mild increased Surface contour: Smooth Lesions: None. Biliary: No intrahepatic biliary duct dilation. CBD: 0.3 cm at the hilum. Gallbladder: Normal caliber -Contents: No cholelithiasis -Wall: Normal -Other: No pericholecystic fluid. Right Kidney: Normal cortical echogenicity. No hydronephrosis. Ascites: None. IMPRESSION IMPRESSION: Mildly increased hepatic parenchymal echogenicity suggests mild hepatic steatosis. Candy Spreader Helper: HELGA Transcribe Date/Time: Nov 19 2024 4:10P Dictated by : LIBORIO PHELPS MD This examination was interpreted and the report reviewed and electronically signed by: LIBORIO PHELPS MD on Nov 19 2024 4:11PM EST [facility] Radiology Study observation (narrative) [facility] US Abdomen RUQOrdered By: Lawanda whitten Provider on 11-19-2024 [facility] 25(OH)D3 SerPl-mCncon 2023 25-hydroxyvitamin D3 [Mass/Vol] 9.3 ng/mL Low 31.0-80.0 [facility] Comment on above: Order Comment: Speci men Type: BLOOD SPECIMENOrdering Facility: [facility] Address: [address] [place] [address] Performed By: #### 1 989-3 ####[facility] LABIA [id number] [place] [address] [place] CBC panel Auto (Bld)on 11-05 Erythrocyte distribution width (RBC) [Ratio] 12.3 % Normal 11.5-15.0 [facility] Comment on above: Order Comment: Speci men Type: BLOOD SPECIMENOrdering Facility: [facility] Address: [address] [place] [address] Performed By: #### 5 8410-2 ####[facility] LABIA [id number] [place] [address] [place] Hematocrit (Bld) [Volume fraction] 36.7 % Normal 36.0-46.0 [facility] Comment on above: Order Comment: Speci men Type: BLOOD SPECIMENOrdering Facility: [facility] Address: [address] [place] [address] Performed By: #### 5 8410-2 ####[facility] LABIA [id number] [place] [address] [place] Hemoglobin (Bld) [Mass/Vol] 12.1 g/dL Normal 11.5-15.5 [facility] Comment on above: Order Comment: Speci men Type: BLOOD SPECIMENOrdering Facility: [facility] Address: [address] [place] [address] Performed By: #### 5 8410-2 ####[facility] LABIA [id number] [place] [id number] [place] MCH (RBC) [Entitic mass] 26.9 pg Normal 26.0-34.0 [facility] Comment on above: Order Comment: Speci men Type: BLOOD SPECIMENOrdering Facility: [facility] Address: [address] [place] [address] Performed By: #### 5 8410-2 ####[facility] LABIA [id number] [place] [address] [place] MCHC (RBC) [Mass/Vol] 33.0 g/dL Normal 30.5-36.0 [facility] Comment on above: Order Comment: Speci men Type: BLOOD SPECIMENOrdering Facility: [facility] Address: [address] [place] [address] Performed By: #### 5 8410-2 ####[facility] LABIA [id number] [place] [address] [place] MCV (RBC) [Entitic vol] 81.6 fL Normal 80.0-100.0 [facility] Comment on above: Order Comment: Speci men Type: BLOOD SPECIMENOrdering Facility: [facility] Address: [address] [place] [address] Performed By: #### 5 8410-2 ####[facility] [id number] [place] [address] [place] Nucleated RBC (Bld) [#/Vol] 10*3/uL Normal <0.01 [facility] Comment on above: Order Comment: Speci men Type: BLOOD SPECIMENOrdering Facility: [facility] Address: [address] [place] [address] Performed By: #### 5 8410-2 ####[facility] [id number] [place] [address] [place] Platelet mean volume (Bld) [Entitic vol] 10.5 fL Normal 9.0-12.7 [facility] Comment on above: Order Comment: Speci men Type: BLOOD SPECIMENOrdering Facility: [facility] Address: [address] [place] [address] Performed By: #### 5 8410-2 ####[facility] LABIA [id number] [place] [address] [place] Platelets (Bld) [#/Vol] 349 10*3/uL Normal 150-400 [facility] Comment on above: Order Comment: Speci men Type: BLOOD SPECIMENOrdering Facility: [facility] Address: [address] [place] [address] Performed By: #### 5 8410-2 ####[facility] LABCLIA [id number] [place] [address] [place] RBC (Bld) [#/Vol] 4.50 10*6/uL Normal 3.90-5.20 [facility] Comment on above: Order Comment: Speci men Type: BLOOD SPECIMENOrdering Facility: [facility] Address: [address] [place] [address] Performed By: #### 5 8410-2 ####[facility] LABCLIA [id number] [place] [address] [place] WBC (Bld) [#/Vol] 7.72 10*3/uL Normal 3.70-11.00 [facility] Comment on above: Order Comment: Speci men Type: BLOOD SPECIMENOrdering Facility: [facility] Address: [address] [place] [address] Performed By: #### 5 8410-2 ####[facility] LABCLIA [id number] [place] [address] [place] CRP SerPl-mCncon 11-05-2024 CRP [Mass/Vol] mg/L Normal <0.9 [facility] Comment on above: Order Comment: Speci men Type: BLOOD SPECIMENOrdering Facility: [facility] Address: [address] [place] [address] Performed By: #### 2 4323-8, 1987-, 3016-3 ####[facility] LABCLIA [id number] [place] [id number] [place] Comprehensive metabolic 2000 panelon 11-05-2024 Albumin [Mass/Vol] 4.3 g/dL Normal 3.9-4.9 [facility] Comment on above: Order Comment: Speci men Type: BLOOD SPECIMENOrdering Facility: [facility] Address: [address] [place] [address] Performed By: #### 2 4328, 1988-03, 3016-01 ####[facility] LABCLIA [id number] [facility] [address] [id number] [place] AL[place] [Catalytic activity/Vol] 88 U/L Normal 34-123 [facility] Comment on above: Order Comment: Speci men Type: BLOOD SPECIMENOrdering Facility: [facility] Address: [address] [place], [place] [id number] Performed By: #### 2 4328, 1988-03, 3016-01 ####[facility] LABCLIA [id number] [place] [address] [place] ALT [Catalytic activity/Vol] 15 U/L Normal 7-38 [facility] Comment on above: Order Comment: Speci men Type: BLOOD SPECIMENOrdering Facility: [facility] Address: [address] [place] [address] Performed By: #### 2 4328, 1988-03, 3016-01 ####[facility] LABCLIA [id number] [place] [id number] [place] Anion gap [Moles/Vol] 10 mmol/L Normal 8-15 [facility] Comment on above: Order Comment: Speci men Type: BLOOD SPECIMENOrdering Facility: [facility] Address: [address] [place] [address] Performed By: #### 2 4323-8, 1988-03, 3016-01 ####[facility] LABCLIA [id number] [place] [id number] [place] AST [Catalytic activity/Vol] 22 U/L Normal 13-35 [facility] Comment on above: Order Comment: Speci men Type: BLOOD SPECIMENOrdering Facility: [facility] Address: [address] [place] [address] Performed By: #### 2 4323-8, 1988-03, 3016-01 ####[facility] LABCLIA [id number] [address] [address] [place] Bilirubin [Mass/Vol] 0.4 mg/dL Normal 0.2-1.3 [facility] Comment on above: Order Comment: Speci men Type: BLOOD SPECIMENOrdering Facility: [facility] Address: [address] [place], [place] [address] Performed By: #### 2 4328, 1988-03, 3016-01 ####[facility] LABCLIA [id number] [place] [id number] [place] Calcium [Mass/Vol] 9.3 mg/dL Normal 8.5-10.2 [facility] Comment on above: Order Comment: Speci men Type: BLOOD SPECIMENOrdering Facility: [facility] Address: [address] [place], [place] [address] Performed By: #### 2 432-8, 1988-03, 3016-01 ####[facility] LABIA [id number] [place] [id number] [place] Chloride [Moles/Vol] 104 mmol/L Normal 98-107 [facility] Comment on above: Order Comment: Speci men Type: BLOOD SPECIMENOrdering Facility: [facility] Address: [address] [place] [address] Performed By: #### 2 4328, 1988-03, 3016-01 ####[facility] LABIA [id number] [address] [address] [place] CO2 [Moles/Vol] 24 mmol/L Normal 22-30 [facility] Comment on above: Order Comment: Speci men Type: BLOOD SPECIMENOrdering Facility: [facility] Address: [address] [place] [address] Performed By: #### 2 432, 3016-01 ####[facility] LABIA [id number] [address] [address] [place] Creatinine [Mass/Vol] 0.68 mg/dL Normal 0.58-0.96 [facility] Comment on above: Order Comment: Omero cervantes Type: BLOOD SPECIMENOrdering Facility: [facility] Address: [address] [place] [address] Performed By: #### 2 43201-26, 3016-01 ####[facility] LABIA [id number] [place] [address] [place] Creatinine and Glomerular filtration rate.predicted panel (S/P/Bld) 127 mL/min/1.73m??? Normal >=60 [facility] Comment on above: Order Comment: Omero cervantes Type: BLOOD SPECIMENOrdering Facility: [facility] Address: [address] [place] [address] Result Comment: Tamera mated Glomerular Filtration Rate (eGFR) is calculated using the 2020 CKD-EPI creatinine equation. This equation utilizes serum creatinine, sex, and age as parameters. The creatinine assay has traceable calibration to isotope dilution-mass spectrometry. Refer to KDIGO guidelines for clinical interpretation. In patients with unstable renal function, e.g. those with acute kidney injury, the eGFR may not accurately reflect actual GFR. Performed By: #### 2 4328, 3016-01 ####[facility] LABIA [id number] [address] [address] [place] Glucose [Mass/Vol] 93 mg/dL Normal 74-99 [facility] Comment on above: Order Comment: Omero men Type: BLOOD SPECIMENOrdering Facility: [facility] Address: [address] [place] [address] Result Comment: The [place] Diabetes Association (ADA) provides guidance for cutoff values for fasting glucose and random glucose. The ADA defines fasting as no caloric intake for at least 8 hours. Fasting plasma glucose results between 100 to 125 mg/dL indicate increased risk for diabetes (prediabetes). Fasting plasma glucose results greater than or equal to 126 mg/dL meet the criteria for diagnosis of diabetes. In the absence of unequivocal hyperglycemia, results should be confirmed by repeat testing. In a patient with classic symptoms of hyperglycemia or hyperglycemic crisis, random plasma glucose results greater than or equal to 200 mg/dL meet the criteria for diagnosis of diabetes. Reference: Standards of Medical Care in Diabetes 2016, [place] Diabetes Association. Diabetes Care. 2016.39(Suppl 1). Performed By: #### 2 4323-06, 3016-01 ####[facility] LABCLIA [id number] [address] [address] [place] Potassium [Moles/Vol] 3.9 mmol/L Normal 3.7-5.1 [facility] Comment on above: Order Comment: Speci men Type: BLOOD SPECIMENOrdering Facility: [facility] Address: [address] [place] [address] Performed By: #### 2 4323-06, 3016-01 ####[facility] LABIA [id number] [address] [address] [place] Protein [Mass/Vol] 6.9 g/dL Normal 6.3-8.0 [facility] Comment on above: Order Comment: Speci men Type: BLOOD SPECIMENOrdering Facility: [facility] Address: [address] [place], [place] [address] Performed By: #### 2 4323-06, 3016-01 ####[facility] LABCLIA [id number] [address] [address] [place] Sodium [Moles/Vol] 138 mmol/L Normal 136-144 [facility] Comment on above: Order Comment: Speci men Type: BLOOD SPECIMENOrdering Facility: [facility] Address: [address] [place] [address] Performed By: #### 2 4323-06, 3016-01 ####[facility] LABCLIA [id number] [place] [id number] [place] Urea nitrogen [Mass/Vol] 9 mg/dL Normal 7-21 [facility] Comment on above: Order Comment: Speci men Type: BLOOD SPECIMENOrdering Facility: [facility] Address: [address] [place] [address] Performed By: #### 2 4323-8, 1988-03, 3016-01 ####[facility] LABCLIA [id number] [place] [id number] [place] TSH SerPl-aCncon 11-05-2024 TSH Qn 1.430 m[IU]/L Normal 0.270-4.200 [facility] Comment on above: Order Comment: Speci men Type: BLOOD SPECIMENOrdering Facility: [facility] Address: [address] [place] [address] Result Comment: If t he patient is , TSH reference range varies by gestational period: First Trimester (weeks 9-12): 0.180-2.990 mIU/L Second Trimester: 0.110-3.980 mIU/L Third Trimester: 0.480-4.710 mIU/L Kory Johnson et al. A Practical Approach for the Verifications and Determination of Site- and Trimester-Specific Reference Intervals for Thyroid Function tests in . Thyroid, 2019:29:3:412-420. Mika Fong, et al. 2017 Guidelines of the [place] Thyroid Association for the Diagnosis and Management of Thyroid Disease during and the . Thyroid, 2017:27:3:315-389. Performed By: #### 2 4323-8, 1988-03, 3016-01 ####[facility] LABIA [id number] [address] [address] [place] .GFRon 09-05-2024 GFR 95 ml/min/1.73sqm Normal [facility] Comment on above: Result Comment: GFR Population mean for , Non- Americans Ages 20-29 = 116 mL/min/1.73 sq.m. Ages 30-39 = 107 mL/min/1.73 sq.m. Ages 40-49 = 99 mL/min/1.73 sq.m. Ages 50-59 = 93 mL/min/1.73 sq.m. Ages 60-69 = 85 mL/min/1.73 sq.m. Ages 70+ = 75 mL/min/1.73 sq.m. Chronic Kidney Disease: Less than 60 mL/min/1.73 square meters End Stage Renal Disease: Less than 15 mL/min/1.73 square meters Performed By: #### P REGU, UAMICAO, UA #### [place] [address] [place], [place] [address] GFR Non- 78 ml/min/1.73sqm Normal [facility] Comment on above: Result Comment: GFR Population mean for , Non- Americans Ages 20-29 = 116 mL/min/1.73 sq.m. Ages 30-39 = 107 mL/min/1.73 sq.m. Ages 40-49 = 99 mL/min/1.73 sq.m. Ages 50-59 = 93 mL/min/1.73 sq.m. Ages 60-69 = 85 mL/min/1.73 sq.m. Ages 70+ = 75 mL/min/1.73 sq.m. Chronic Kidney Disease: Less than 60 mL/min/1.73 square meters End Stage Renal Disease: Less than 15 mL/min/1.73 square meters Performed By: #### P REGU, UAMICAO, UA #### [address] [address] BMPon 09-05-2024 BUN/Creatinine Ratio 16 ratio Normal 7-27 [facility] Comment on above: Performed By: #### P REGU, UAMICAO, UA #### [place] [address] [place], [place] [address] Calcium [Mass/Vol] 9.4 mg/dL Normal 8.4-10.2 [facility] Comment on above: Performed By: #### P REGU, UAMICAO, UA #### [place] [address] [place], [place] [address] Chloride [Moles/Vol] 103 mmol/L Normal 98-107 [facility] Comment on above: Performed By: #### P REGU, UAMICAO, UA #### [place] [address] CO2 [Moles/Vol] 27 mmol/L Normal 22-29 [facility] Comment on above: Performed By: #### P REGU, UAMICAO, UA #### [place] [address] Creatinine [Mass/Vol] 0.91 mg/dL Normal 0.55-1.02 [facility] Comment on above: Result Comment: Test ing performed on Siemens Dimension EXL analyzer using a modified kinetic Joseph technique. Performed By: #### P REGU, UAMICAO, UA #### [place] [address] Electrolyte Balance 8.0 mEq/L Normal 4.0-15.0 [facility] Comment on above: Performed By: #### P REGU, UAMICAO, UA #### [place] [address] Glucose [Mass/Vol] 105 mg/dL Normal 70-105 [facility] Comment on above: Performed By: #### P REGU, UAMICAO, UA #### [place] [address] Potassium [Moles/Vol] 3.7 mmol/L Normal 3.5-5.1 [facility] Comment on above: Performed By: #### P REGU, UAMICAO, UA #### [place] [address] Sodium [Moles/Vol] 138 mmol/L Normal 136-145 [facility] Comment on above: Performed By: #### P REGU, UAMICAO, UA #### [place] [id number] Urea nitrogen [Mass/Vol] 15 mg/dL Normal 7-18 [facility] Comment on above: Performed By: #### P REGU, UAMICAO, UA #### [place] [address] LABORATORYOrdered By: SYSTEM SYSTEM on 09-05-2024 Calcium [Mass/Vol] 9.4 mg/dL Normal 8.4 - 10. 2 mg/dL AO ADM SS Chloride [Moles/Vol] 103 mmol/L Normal 98 - 107 mmol/L AO ADM SS CO2 [Moles/Vol] 27 mmol/L Normal 22 - 29 mmol/L AO ADM SS Creatinine [Mass/Vol] 0.91 mg/dL Normal 0.55 - 1.02 mg/dL AO ADM [facility] Comment on above: Interpretive Data: T esting performed on [employer] Dimension EXL analyzer using a modified kinetic Joseph technique. Electrolyte Balance 8.0 mEq/L Normal 4.0 - 15 .0 mEq/L AO ADM SS GFR/1.73 sq M.predicted among blacks MDRD (S/P/Bld) [Vol rate/Area] 95 ml/min/1.73sqm Invalid Interpretation Code AO Chemistry S Comment on above: Interpretive Data: GFR Population mean for , Non- Americans Ages 20-29 = 116 mL/min/1.73 sq.m. Ages 30-39 = 107 mL/min/1.73 sq.m. Ages 40-49 = 99 mL/min/1.73 sq.m. Ages 50-59 = 93 mL/min/1.73 sq.m. Ages 60-69 = 85 mL/min/1.73 sq.m. Ages 70+ = 75 mL/min/1.73 sq.m. Chronic Kidney Disease: Less than 60 mL/min/1.73 square meters End Stage Renal Disease: Less than 15 mL/min/1.73 square meters GFR/1.73 sq M.predicted among non-blacks MDRD (S/P/Bld) [Vol rate/Area] 78 ml/min/1.73sqm Invalid Interpretation Code AO Chemistry S Comment on above: Interpretive Data: GFR Population mean for , Non- Americans Ages 20-29 = 116 mL/min/1.73 sq.m. Ages 30-39 = 107 mL/min/1.73 sq.m. Ages 40-49 = 99 mL/min/1.73 sq.m. Ages 50-59 = 93 mL/min/1.73 sq.m. Ages 60-69 = 85 mL/min/1.73 sq.m. Ages 70+ = 75 mL/min/1.73 sq.m. Chronic Kidney Disease: Less than 60 mL/min/1.73 square meters End Stage Renal Disease: Less than 15 mL/min/1.73 square meters Glucose [Mass/Vol] 105 mg/dL Normal 70 - 105 mg/dL AO ADM SS Magnesium [Mass/Vol] 1.7 mg/dL Low 1.8 - 2.4 mg/dL AO ADM SS Potassium [Moles/Vol] 3.7 mmol/L Normal 3.5 - 5.1 mmol/L AO ADM SS Sodium [Moles/Vol] 138 mmol/L Normal 136 - 145 mmol/L AO ADM SS Urea nitrogen [Mass/Vol] 15 mg/dL Normal 7 - 18 mg/dL AO ADM SS Urea nitrogen/Creatinine [Mass ratio] 16 ratio Normal 7 - 27 ratio AO ADM SS MGon 09-05-2024 Magnesium [Mass/Vol] 1.7 mg/dL Low 1.8-2.4 [facility] Comment on above: Performed By: #### P VARSHA CARRERA UA #### [facility] [address] [place], [place] [address] NM GASTRIC EMPTYING STUDYon 07-27-2024 NM GASTRIC EMPTYING STUDY ORIGINAL EXAMINATION: GASTRIC EMPTYING STUDY07/27/2024 3:04 pm TECHNIQUE: The patient received an oral radiolabeled solid-phase meal utilizing 2 point mCi of Tc-99m sulfur colloid in cooked egg. Sequential anterior and posterior images of the abdomen were then acquired over the next four hours. Computer quantification of gastric emptying (using geometric mean activity) was performed. COMPARISON: None HISTORY: ORDERING SYSTEM PROVIDED HISTORY: Reason for Exam: VOMITING, ABD PAIN, IBS FINDINGS: Sequential static images demonstrates radiotracer within the gastric lumen, progressively emptying into small bowel. Computer quantification demonstrates gastric retention as follows: 87 % at 0.5 hr (normal min 70%) 74 % at 1 hr (normal 30%-90%) 34 % at 2 hr (normal max 60%) 18 % at 3 hr (normal max 30%) 5 % at 4 hr (normal max 10%) IMPRESSION: Normal gastric emptying of radiolabeled solid meal, without evidence of gastroparesis. Interpreted by: Juan Zabala DO Preliminary Report By: Juan Zabala DO Electronically signed By Juan Zabala DO Dictated Date: 07/27/2024 3:34:16 PM Prelim Date: 07/27/2024 3:35:18 PM Sign Date: 07/27/2024 3:35:18 PM Ordering Provider: YOSVANY BERNSTEIN [facility] .Auto Diffon 06-11-2024 Basophil, Absolute 0.0 10 3/mcL Normal 0.0-0.2 [facility] ([place]) Comment on above: Performed By: #### P REGU, UAMICAO, UA #### [address] [address] Basophils/100 WBC (Bld) 0.6 % Normal 0.0-2.5 [facility] ([place]) Comment on above: Performed By: #### P REGU, UAMICAO, UA #### [address] [address] Eosinophil, Absolute 0.1 10 3/mcL Normal 0.0-0.4 [facility] ([place]) Comment on above: Performed By: #### P REGU, UAMICAO, UA #### [address] [address] Eosinophils/100 WBC (Bld) 1.9 % Normal 0.0-7.0 [facility] ([place]) Comment on above: Performed By: #### P REGU, UAMICAO, UA #### [address] [address] Lymphocyte, Absolute 2.4 10 3/mcL Normal 0.8-3.9 [facility] ([place]) Comment on above: Performed By: #### P REGU, UAMICAO, UA #### [address] [address] Lymphocytes/100 WBC (Bld) 32.7 % Normal 10.0-50.0 [facility] ([place]) Comment on above: Performed By: #### P REGU, UAMICAO, UA #### [address] [address] Monocyte, Absolute 0.6 10 3/mcL Normal 0.2-1.0 [facility] ([place]) Comment on above: Performed By: #### P REGU, UAMICAO, UA #### [address] [address] Monocytes/100 WBC (Bld) 8.6 % Normal 1.7-13.0 [facility] ([place] Comment on above: Performed By: #### P REGU, UAMICAO, UA #### [address] [address] Neutrophils/100 WBC (Bld) 56.2 % Normal 37.0-80.0 [facility] ([place] Comment on above: Performed By: #### P REGU, UAMICAO, UA #### [address] [address] .GFRon 06-11-2024 GFR 123 ml/min/1.73sqm Normal [facility] ([place]) Comment on above: Result Comment: GFR Population mean for , Non- Americans Ages 20-29 = 116 mL/min/1.73 sq.m. Ages 30-39 = 107 mL/min/1.73 sq.m. Ages 40-49 = 99 mL/min/1.73 sq.m. Ages 50-59 = 93 mL/min/1.73 sq.m. Ages 60-69 = 85 mL/min/1.73 sq.m. Ages 70+ = 75 mL/min/1.73 sq.m. Chronic Kidney Disease: Less than 60 mL/min/1.73 square meters End Stage Renal Disease: Less than 15 mL/min/1.73 square meters Performed By: #### P REGU, UAMICAO, UA #### [address] [address] GFR Non- 102 ml/min/1.73sqm Normal [facility] ([place]) Comment on above: Result Comment: GFR Population mean for , Non- Americans Ages 20-29 = 116 mL/min/1.73 sq.m. Ages 30-39 = 107 mL/min/1.73 sq.m. Ages 40-49 = 99 mL/min/1.73 sq.m. Ages 50-59 = 93 mL/min/1.73 sq.m. Ages 60-69 = 85 mL/min/1.73 sq.m. Ages 70+ = 75 mL/min/1.73 sq.m. Chronic Kidney Disease: Less than 60 mL/min/1.73 square meters End Stage Renal Disease: Less than 15 mL/min/1.73 square meters Performed By: #### P REGU, UAMICAO, UA #### [address] [address] .MDWon 06-11-2024 Monocyte Distribution Width 17.63 Normal 0.00-20.00 [facility] ([place]) Comment on above: Result Comment: For ED adult patients suspected of sepsis, MDW<=20.0 does not rule out sepsis or risk of sepsis Performed By: #### P REGU [place], UA #### [address] [address] .NEUABSon 06-11-2024 Neutrophil, Absolute 4.1 10 3/mcL Normal 2.9-6.2 [facility] ([place] Comment on above: Performed By: #### P REGU [place], UA #### [address] [address] ABO/Rh (Gel)on 06-11-2024 ABO/Rh Interp Positive Invalid Interpretation Code [facility] ([place] Comment on above: Performed By: #### P REGU, UAMICAO, UA #### [address] [address] ABS (Gel)on 06-11-2024 ABSC Interp (Gel) Negative Normal [facility] ([place] Comment on above: Performed By: #### P REGU, [place]AMICAO, UA #### [address] [address] CBCon 06-11-2024 Erythrocyte distribution width (RBC) [Ratio] 13.4 % Normal 11.5-14.5 [facility] ([place] Comment on above: Performed By: #### P REGU, UAMICAO, UA #### [address] [address] Hematocrit (Bld) [Volume fraction] 38.8 % Normal 37.0-47.0 [facility] ([place] Comment on above: Performed By: #### P REGU, UAMICAO, UA #### [address] [address] Hgb 13.3 G/dL Normal 12.0-16.0 [facility] ([place] Comment on above: Performed By: #### P REGU, UAMICAO, UA #### [address] [address] MCH (RBC) [Entitic mass] 28.9 pg Normal 27.0-31.2 [facility] ([place] Comment on above: Performed By: #### P REGU, UAMICAO, UA #### [place] [address] MCHC 34.4 G/dL Normal 33.0-37.0 [facility] ([place] Comment on above: Performed By: #### P REGU, UAMICAO, UA #### [address] [address] MCV (RBC) [Entitic vol] 84.0 fL Normal 80.0-94.0 [facility] ([place] Comment on above: Performed By: #### P REGU, PILIMICAO, UA #### [address] [address] Platelet 314 10 3/mcL Normal 130-400 [facility] ([place] Comment on above: Performed By: #### P REGU, UAMICAO, UA #### [address] [address] Platelet mean volume (Bld) [Entitic vol] 8.0 fL Normal 7.4-10.4 [facility] ([place] Comment on above: Performed By: #### P REGU, UAMICAO, UA #### [address] [address] RBC 4.62 10 6/mcL Normal 4.20-5.40 [facility] ([place] Comment on above: Performed By: #### P REGU [place], UA #### [address] [address] WBC 7.3 10 3/mcL Normal 4.6-10.8 [facility] ([place] Comment on above: Performed By: #### P REGU [place], UA #### [address] [address] CMPon 06-11-2024 Albumin Level 4.3 G/dL Normal 3.5-5.0 [facility] ([place] Comment on above: Performed By: #### P REGU [place], UA #### [address] [address] Albumin/Globulin [Mass ratio] 1.3 {ratio} Normal 1.1-2.5 [facility] ([place] Comment on above: Performed By: #### P REGU [place], UA #### [address] [address] ALP [Catalytic activity/Vol] 87 U/L Normal 40-135 [facility] ([place] Comment on above: Performed By: #### P REGUPILIMICAO, UA #### [address] [address] ALT [Catalytic activity/Vol] 26 U/L Normal 14-59 [facility] ([place] Comment on above: Performed By: #### P REGU [place], UA #### [address] [address] AST [Catalytic activity/Vol] 24 U/L Normal 10-40 [facility] ([place] Comment on above: Performed By: #### P REGU [place]AM[place]O, UA #### [address] [address] Bili Total 0.6 mg/dL Normal 0.2-1.0 [facility] ([place] Comment on above: Result Comment: Use of this assay is not recommended for patients undergoing treatment with eltrombopag due to the potential for falsely elevated results. Performed By: #### P REGU, UAMICAO, UA #### [place] [id number] BUN/Creatinine Ratio 12 ratio Normal 7-27 [facility] ([place] Comment on above: Performed By: #### P REGU, UAMICAO, UA #### [place] [id number] Calcium [Mass/Vol] 9.6 mg/dL Normal 8.4-10.2 [facility] ([place]) Comment on above: Performed By: #### P REGU, UAMICAO, UA #### [place] [address] Chloride [Moles/Vol] 101 mmol/L Normal 98-107 [facility] ([place] Comment on above: Performed By: #### P REGU, UAMICAO, UA #### [place] [address] CO2 [Moles/Vol] 32 mmol/L High 22-29 [facility] ([place] Comment on above: Performed By: #### P REGU, UAMICAO, UA #### [place] [id number] Creatinine [Mass/Vol] 0.73 mg/dL Normal 0.55-1.02 [facility] ([place] Comment on above: Performed By: #### P REGU, UAMICAO, UA #### [place] [id number] Electrolyte Balance 5.0 mEq/L Normal 4.0-15.0 [facility] ([place]) Comment on above: Performed By: #### P REGU, UAMICAO, UA #### [place] [id number] Globulin 3.2 G/dL Normal [facility] ([place] Comment on above: Performed By: #### P REGU, UAMICAO, UA #### [place] [id number] Glucose [Mass/Vol] 90 mg/dL Normal 70-105 [facility] ([place]) Comment on above: Performed By: #### P REGUPILIMICAO UA #### [address] [address] Potassium [Moles/Vol] 3.7 mmol/L Normal 3.5-5.1 [facility] ([place] Comment on above: Performed By: #### P REGU [place]AM[place]O, UA #### [address] [address] Sodium [Moles/Vol] 138 mmol/L Normal 136-145 [facility] ([place]) Comment on above: Performed By: #### P REGUPILIMICAO, UA #### [address] [address] Total Protein 7.5 G/dL Normal 6.4-8.2 [facility] ([place] Comment on above: Performed By: #### P REGUPILIMICAO, UA #### [address] [address] Urea nitrogen [Mass/Vol] 9 mg/dL Normal 7-18 [facility] ([place] Comment on above: Performed By: #### Ly REGUPILIMICAO, UA #### [address] [address] [address] ABD/PELVIS W/ IV CONTRAST ONLYon 06-11-2024 CT ABD/PELVIS W/ IV CONTRAST ONLY ORIGINAL EXAMINATION: CT OF THE ABDOMEN AND PELVIS WITH CONTRAST06/11/2024 3:27 pm TECHNIQUE: CT of the abdomen and pelvis was performed with the administration of intravenous contrast. Multiplanar reformatted images are provided for review. Automated exposure control, iterative reconstruction, and/or weight based adjustment of the mA/kV was utilized to reduce the radiation dose to as low as reasonably achievable. COMPARISON: 09/22/2023 HISTORY: ORDERING SYSTEM PROVIDED HISTORY: Reason for Exam: pain epigastric pain, reported blood in stool. FINDINGS: The visualized lower thoracic structures are unremarkable. No acute osseous or soft tissue abnormality. The liver is unremarkable in size, contour, and attenuation. There is no intra or extrahepatic biliary duct dilation. No focal mass identified. The gallbladder, pancreas, spleen, and adrenal glands are unremarkable. The kidneys enhance symmetrically. No right hydronephrosis. A left extrarenal pelvis noted.. The ureters are normal course and caliber. There is no evidence of urolithiasis. The visualized esophagus, stomach, and duodenum are unremarkable. The visualized aorta is nonaneurysmal. The GI tract exhibits no acute abnormalities. No pathologically enlarged retroperitoneal, mesenteric, or pelvic lymph nodes are identified. There is no free intraperitoneal air or fluid. The urinary bladder is well-distended without wall thickening or focal mass. The uterus is within normal limits. Trace free fluid is noted in the pelvis which is likely physiologic. IMPRESSION: No acute process within the abdomen or pelvis. I have personally reviewed the images of this examination and agree with the resident's findings and interpretation. Interpreted by: Wilfred Hernandez MD Preliminary Report By: Imelda Hernandez Electronically signed By Wilfred Hernandez MD Dictated Date: 06/11/2024 3:38:27 PM Prelim Date: 06/11/2024 3:58:38 PM Sign Date: 06/11/2024 3:58:38 PM Ordering Provider: DEVIN REARDON [facility] ([place]) LABORATORYOrdered By: Zoila Bermudez on 06-11-2024 Occult Bld Stl Negative (06/11/24 3:40 PM) [facility] Work Phone: LABORATORYOrdered By: Romeo Brink on 06-11-2024 ABO and Rh group Nom (Bld) Blood group A Rh(D) positive Invalid Interpretation Code AO BB Auto SS Blood group antibody screen Ql Negative ABSC (06/11/24 1:26 PM) Normal AO BB Auto SS LABORATORYOrdered By: SYSTEM SYSTEM on 06-11-2024 Albumin BCP dye [Mass/Vol] 4.3 G/dL Normal 3.5 - 5.0 G/dL AO ADM SS Albumin/Globulin [Mass ratio] 1.3 {ratio} Normal 1.1 - 2.5 ratio AO ADM SS ALP [Catalytic activity/Vol] 87 U/L Normal 40 - 135 U/L AO ADM SS ALT With P-5'-P [Catalytic activity/Vol] 26 U/L Normal 14 - 59 U/L AO ADM SS AST With P-5'-P [Catalytic activity/Vol] 24 U/L Normal 10 - 40 U/L AO ADM SS Basophil, Absolute 0.0 103/mcL Normal 0.0 - 0.2 10^3/mcL AO Workflow SS Basophils/100 WBC (Bld) 0.6 % Normal 0.0 - 2.5 % AO Workflow SS Bilirubin [Mass/Vol] 0.6 mg/dL Normal 0.2 - 1.0 mg/dL AO ADM SS Comment on above: Interpretive Data: U se of this assay is not recommended for patients undergoing treatment with eltrombopag due to the potential for falsely elevated results. Calcium [Mass/Vol] 9.6 mg/dL Normal 8.4 - 10. 2 mg/dL AO ADM SS Chloride [Moles/Vol] 101 mmol/L Normal 98 - 107 mmol/L AO ADM SS CO2 [Moles/Vol] 32 mmol/L High 22 - 29 mmol/L AO ADM SS Creatinine [Mass/Vol] 0.73 mg/dL Normal 0.55 - 1.02 mg/dL AO ADM SS Electrolyte Balance 5.0 mEq/L Normal 4.0 - 15 .0 mEq/L AO ADM SS Eosinophil, Absolute 0.1 103/mcL Normal 0.0 - 0.4 10^3/mcL AO Workflow SS Eosinophils/100 WBC (Bld) 1.9 % Normal 0.0 - 7.0 % AO Workflow SS Erythrocyte distribution width (RBC) [Ratio] 13.4 % Normal 11.5 - 14.5 % AO Workflow SS GFR/1.73 sq M.predicted among blacks MDRD (S/P/Bld) [Vol rate/Area] 123 ml/min/1.73sqm Invalid Interpretation Code AO Chemistry S Comment on above: Interpretive Data: GFR Population mean for , Non- Americans Ages 20-29 = 116 mL/min/1.73 sq.m. Ages 30-39 = 107 mL/min/1.73 sq.m. Ages 40-49 = 99 mL/min/1.73 sq.m. Ages 50-59 = 93 mL/min/1.73 sq.m. Ages 60-69 = 85 mL/min/1.73 sq.m. Ages 70+ = 75 mL/min/1.73 sq.m. Chronic Kidney Disease: Less than 60 mL/min/1.73 square meters End Stage Renal Disease: Less than 15 mL/min/1.73 square meters GFR/1.73 sq M.predicted among non-blacks MDRD (S/P/Bld) [Vol rate/Area] 102 ml/min/1.73sqm Invalid Interpretation Code AO Chemistry S Comment on above: Interpretive Data: GFR Population mean for , Non- Americans Ages 20-29 = 116 mL/min/1.73 sq.m. Ages 30-39 = 107 mL/min/1.73 sq.m. Ages 40-49 = 99 mL/min/1.73 sq.m. Ages 50-59 = 93 mL/min/1.73 sq.m. Ages 60-69 = 85 mL/min/1.73 sq.m. Ages 70+ = 75 mL/min/1.73 sq.m. Chronic Kidney Disease: Less than 60 mL/min/1.73 square meters End Stage Renal Disease: Less than 15 mL/min/1.73 square meters Globulin 3.2 G/dL Invalid Interpretation Code AO ADM SS Glucose [Mass/Vol] 90 mg/dL Normal 70 - 105 mg/dL AO ADM SS Hematocrit (Bld) [Volume fraction] 38.8 % Normal 37.0 - 47.0 % AO Workflow SS Hemoglobin (Bld) [Mass/Vol] 13.3 G/dL Normal 12.0 - 16.0 G/dL AO Workflow SS Lipase [Catalytic activity/Vol] 32 U/L Normal 16 - 77 U/L AO ADM SS Lymphocyte, Absolute 2.4 103/mcL Normal 0.8 - 3.9 10^3/mcL AO Workflow SS Lymphocytes/100 WBC (Bld) 32.7 % Normal 10.0 - 50.0 % AO Workflow SS MCH (RBC) [Entitic mass] 28.9 pg Normal 27.0 - 31.2 pg AO Workflow SS MCHC 34.4 G/dL Normal 33.0 - 37.0 G/dL AO Workflow SS MCV (RBC) [Entitic vol] 84.0 fL Normal 80.0 - 94.0 fL AO Workflow SS Monocyte distribution width Auto (Bld) [Entitic vol] 17.63 1 Normal 0.00 - 20.00 AO Workflow SS Comment on above: Result Comment: For ED adult patients suspected of sepsis, ESTRELLA<=20.0 does not rule out sepsis or risk of sepsis Monocyte, Absolute 0.6 103/mcL Normal 0.2 - 1.0 10^3/mcL AO Workflow SS Monocytes/100 WBC (Bld) 8.6 % Normal 1.7 - 13.0 % AO Workflow SS Neutrophil, Absolute 4.1 103/mcL Normal 2.9 - 6.2 10^3/mcL AO Workflow SS Neutrophils/100 WBC (Bld) 56.2 % Normal 37.0 - 80.0 % AO Workflow SS Platelet mean volume (Bld) [Entitic vol] 8.0 fL Normal 7.4 - 10.4 fL AO Workflow SS Platelets (Bld) [#/Vol] 314 103/mcL Normal 130 - 400 10^3/mcL AO Workflow SS Potassium [Moles/Vol] 3.7 mmol/L Normal 3.5 - 5.1 mmol/L AO ADM SS Protein [Mass/Vol] 7.5 G/dL Normal 6.4 - 8.2 G/dL AO ADM SS RBC (Bld) [#/Vol] 4.62 106/mcL Normal 4.20 - 5.4 0 10^6/mcL AO Workflow SS Sodium [Moles/Vol] 138 mmol/L Normal 136 - 145 mmol/L AO ADM SS Urea nitrogen [Mass/Vol] 9 mg/dL Normal 7 - 18 mg/dL AO ADM SS Urea nitrogen/Creatinine [Mass ratio] 12 ratio Normal 7 - 27 ratio AO ADM SS WBC (Bld) [#/Vol] 7.3 103/mcL Normal 4.6 - 10.8 10^3/mcL AO Workflow SS LABORATORYOrdered By: Panda Mckay on 06-11-2024 HCG ( test) Ql (U) Negative (06/11/24 1:26 PM) Normal AO Rapid Testing SS test (s) int Not detected Invalid Interpretation Code AO Rapid Testing SS LIPon 06-11-2024 Lipase Level 32 U/L Normal 16-77 [facility] ([place]) Comment on above: Performed By: #### P VARSHA CARRERA UA #### [address] [address] PREGSon 06-11-2024 test (s) Negative Normal [facility] ([place]) Comment on above: Performed By: #### P REGU, UAMICAO, UA #### [place] [address] test (s) int Not detected Invalid Interpretation Code [facility] ([place]) Comment on above: Performed By: #### P REGU, UAMICAO, UA #### [place] [address] .Urinalysis Microscopic (AO) on 05-07-2024 UA Bacteria 1+ /hpf Abnormal [facility] ([place]) Comment on above: Performed By: #### P REGU, UAMICAO, UA #### [place] [address] UA RBC None Seen Normal None Seen [facility] ([place] Comment on above: Performed By: #### P REGU, UAMICAO, UA #### [place] [address] UA Squam Epithelial 0-5 Abnormal None Seen [facility] ([place]) Comment on above: Performed By: #### P REGU, UAMICAO, UA #### [place] [address] UA WBC 0-5 Abnormal None Seen [facility] ([place] Comment on above: Performed By: #### P REGU, UAMICAO, UA #### [place] [address] LABORATORYOrdered By: Rey Rashid on 05-07-2024 Appearance (U) Slightly Cloudy *ABN* (05/07/24 11:19 PM) Invalid Interpretation Code Clear AO Auto Urine SS Bacteria LM.HPF (Urine sed) [#/Area] 1 /[HPF] Invalid Interpretation Code AO Auto Urine SS Bilirubin Ql (U) Negative (05/07/24 11:19 PM) Normal Negative AO Auto Urine SS Color (U) Yellow (05/07/24 11:19 PM) Normal AO Auto Urine SS Glucose Test strip (U) [Mass/Vol] Negative Normal Negative AO Auto Urine SS HCG ( test) Ql Negative (05/07/24 11:19 PM) Normal AO Manual Urine SS Hemoglobin Auto test strip (U) [Mass/Vol] Negative (05/07/24 11:19 PM) Normal Negative AO Auto Urine SS Ketones Ql (U) Negative Normal Negative AO Auto Urine SS test (u) int Not detected Invalid Interpretation Code AO Manual Urine SS UA Leuk Est Trace *ABN* (05/07/24 11:19 PM) Invalid Interpretation Code Negative AO Auto Urine SS UA Nitrite Negative (05/07/24 11:19 PM) Normal Negative AO Auto Urine SS UA pH 6.5 (05/07/24 11:19 PM) Normal 5.0 - 8.0 AO Auto Urine SS UA Protein Negative Normal Negative AO Auto Urine SS UA RBC None Seen /HPF Normal None Seen AO Auto Urine SS UA Spec Grav 1.025 (05/07/24 11:19 PM) Normal 1.015-1.025 AO Auto Urine SS UA Specimen Type Void (05/07/24 11:19 PM) Normal AO Auto Urine SS UA Squam Epithelial 0-5 /HPF Invalid Interpretation Code None Seen AO Auto Urine SS UA Urobilinogen 0.2 E.U./dL Normal 0.2-1.0 AO Auto Urine SS WBC LM.HPF (Urine sed) [#/Area] 0-5 /HPF Invalid Interpretation Code None Seen AO Auto Urine SS PREGUon 05-07-2024 HCG ( test) Ql (U) Negative Normal [facility] ([place]) Comment on above: Performed By: #### P REGU, UAMICAO, UA #### [address] [address] test (u) int Not detected Invalid Interpretation Code [facility] ([place] Comment on above: Performed By: #### P REGU, UAMICAO, UA #### [address] [address] UAon 05-07-2024 Color (U) Yellow Normal [facility] ([place] Comment on above: Performed By: #### P REGU, UAMICAO, UA #### [address] [address] Glucose (U) [Mass/Vol] Negative Normal Negative [facility] ([place] Comment on above: Performed By: #### P REGU, UAMICAO, UA #### Geoffrey [address] [address] Ketones Ql (U) Negative Normal Negative [facility] ([place] Comment on above: Performed By: #### P REGU, UAMICAO, UA #### Geoffrey [place] [address] UA Appear Slightly Cloudy Abnormal Clear [facility] ([place] Comment on above: Performed By: #### P REGU, UAMICAO, UA #### [address] [place] [address] UA Blood Negative Normal Negative [facility] ([place] Comment on above: Performed By: #### P REGU, UAMICAO, UA #### [address] [place] [address] UA Leuk Est Trace Abnormal Negative [facility] ([place] Comment on above: Performed By: #### P REGU, UAMICAO, UA #### [place] [address] UA Nitrite Negative Normal Negative [facility] ([place] Comment on above: Performed By: #### P REGU, UAMICAO, UA #### [address] [place] [address] UA pH 6.5 Normal 5.0 - 8.0 [facility] ([place] Comment on above: Performed By: #### P REGU, UAMICAO, UA #### [place] [address] UA Protein Negative Normal Negative [facility] ([place] Comment on above: Performed By: #### P REGU, UAMICAO, UA #### [place] [address] UA Spec Grav 1.025 Normal 1.015-1.025 [facility] ([place] Comment on above: Performed By: #### P REGU, UAMICAO, UA #### [place] [address] UA Specimen Type Void Normal [facility] ([place] Comment on above: Performed By: #### P REGU, UAMICAO, UA #### [address] [address] UA Urobilinogen 0.2 E.U./dL Normal 0.2-1.0 [facility] ([place] Comment on above: Performed By: #### P REGU, UAMICAO, UA #### [address] [address] Urobilinogen (U) [Mass/Vol] Negative Normal Negative [facility] ([place] Comment on above: Performed By: #### P REGU, UAMICAO, UA #### [address] [address] .Auto Diffon 03-15-2024 Basophil, Absolute 0.1 10 3/mcL Normal 0.0-0.2 [facility] ([place]) Comment on above: Performed By: #### G FR, CBC, CMP, ANEU, ADIFF #### [address] [address] Basophils/100 WBC (Bld) 0.8 % Normal 0.0-2.5 [facility] ([place] Comment on above: Performed By: #### G FR, CBC, CMP, ANEU, ADIFF #### [address] [address] Eosinophil, Absolute 0.3 10 3/mcL Normal 0.0-0.4 [facility] ([place] Comment on above: Performed By: #### G FR, CBC, CMP, ANEU, ADIFF #### [address] [address] Eosinophils/100 WBC (Bld) 3.8 % Normal 0.0-7.0 [facility] ([place] Comment on above: Performed By: #### G FR, CBC, CMP, ANEU, ADIFF #### [address] [address] Lymphocyte, Absolute 2.2 10 3/mcL Normal 0.8-3.9 [facility] ([place] Comment on above: Performed By: #### G FR, CBC, CMP, ANEU, ADIFF #### [address] [address] Lymphocytes/100 WBC (Bld) 29.4 % Normal 10.0-50.0 [facility] ([place] Comment on above: Performed By: #### G FR, CBC, CMP, ANEU, ADIFF #### [address] [address] Monocyte, Absolute 0.8 10 3/mcL Normal 0.2-1.0 [facility] ([place] Comment on above: Performed By: #### G FR, CBC, CMP, ANEU, ADIFF #### [address] [address] Monocytes/100 WBC (Bld) 11.5 % Normal 1.7-13.0 [facility] ([place] Comment on above: Performed By: #### G FR, CBC, CMP, ANEU, ADIFF #### [address] [address] Neutrophils/100 WBC (Bld) 54.5 % Normal 37.0-80.0 [facility] ([place] Comment on above: Performed By: #### G FR, CBC, CMP, ANEU, ADIFF #### [address] [address] .GFRon 03-15-2024 GFR Non- 86 ml/min/1.73sqm Normal [facility] ([place] Comment on above: Result Comment: GFR Population mean for , Non- Americans Ages 20-29 = 116 mL/min/1.73 sq.m. Ages 30-39 = 107 mL/min/1.73 sq.m. Ages 40-49 = 99 mL/min/1.73 sq.m. Ages 50-59 = 93 mL/min/1.73 sq.m. Ages 60-69 = 85 mL/min/1.73 sq.m. Ages 70+ = 75 mL/min/1.73 sq.m. Chronic Kidney Disease: Less than 60 mL/min/1.73 square meters End Stage Renal Disease: Less than 15 mL/min/1.73 square meters Performed By: #### P REGU, UA #### [address] [address] GFR 105 ml/min/1.73sqm Normal [facility] ([place] Comment on above: Result Comment: GFR Population mean for , Non- Americans Ages 20-29 = 116 mL/min/1.73 sq.m. Ages 30-39 = 107 mL/min/1.73 sq.m. Ages 40-49 = 99 mL/min/1.73 sq.m. Ages 50-59 = 93 mL/min/1.73 sq.m. Ages 60-69 = 85 mL/min/1.73 sq.m. Ages 70+ = 75 mL/min/1.73 sq.m. Chronic Kidney Disease: Less than 60 mL/min/1.73 square meters End Stage Renal Disease: Less than 15 mL/min/1.73 square meters Performed By: #### Ly CARRERA UA #### [address] [address] .NEUABSon 03-15-2024 Neutrophil, Absolute 4.0 10 3/mcL Normal 2.9-6.2 [facility] ([place] Comment on above: Performed By: #### Ly CARRERA UA #### [address] [address] CBCon 03-15-2024 Erythrocyte distribution width (RBC) [Ratio] 13.6 % Normal 11.5-14.5 [facility] ([place] Comment on above: Performed By: #### G FR, CBC, CMP, ANEU, ADIFF #### [address] [address] Hematocrit (Bld) [Volume fraction] 37.5 % Normal 37.0-47.0 [facility] ([place] Comment on above: Performed By: #### G FR, CBC, CMP, ANEU, ADIFF #### [address] [address] Hgb 13.2 G/dL Normal 12.0-16.0 [facility] ([place] Comment on above: Performed By: #### G FR, CBC, CMP, ANEU, ADIFF #### [address] [address] MCH (RBC) [Entitic mass] 28.7 pg Normal 27.0-31.2 [facility] ([place] Comment on above: Performed By: #### G FR, CBC, CMP, ANEU, ADIFF #### [address] [address] MCHC 35.1 G/dL Normal 33.0-37.0 [facility] ([place] Comment on above: Performed By: #### G FR, CBC, CMP, ANEU, ADIFF #### [address] [address] MCV (RBC) [Entitic vol] 81.8 fL Normal 80.0-94.0 [facility] ([place] Comment on above: Performed By: #### G FR, CBC, CMP, ANEU, ADIFF #### [address] [address] Platelet 270 10 3/mcL Normal 130-400 [facility] ([place] Comment on above: Performed By: #### G FR, CBC, CMP, ANEU, ADIFF #### [address] [address] Platelet mean volume (Bld) [Entitic vol] 8.7 fL Normal 7.4-10.4 [facility] ([place] Comment on above: Performed By: #### G FR, CBC, CMP, ANEU, ADIFF #### [address] [address] RBC 4.59 10 6/mcL Normal 4.20-5.40 [facility] ([place] Comment on above: Performed By: #### G FR, CBC, CMP, ANEU, ADIFF #### [address] [address] WBC 7.3 10 3/mcL Normal 4.6-10.8 [facility] ([place] Comment on above: Performed By: #### G FR, CBC, CMP, ANEU, ADIFF #### [address] [address] CMPon 03-15-2024 Albumin Level 4.3 G/dL Normal 3.5-5.0 [facility] ([place] Comment on above: Performed By: #### P REGU, UA #### [address] [address] Albumin/Globulin [Mass ratio] 1.7 {ratio} Normal 1.1-2.5 [facility] ([place] Comment on above: Performed By: #### P REGU, UA #### [address] [address] ALP [Catalytic activity/Vol] 81 U/L Normal 40-135 [facility] ([place] Comment on above: Performed By: #### P REGU, UA #### [address] [address] ALT [Catalytic activity/Vol] 18 U/L Normal 14-59 [facility] ([place] Comment on above: Performed By: #### P REGU, UA #### [address] [address] AST [Catalytic activity/Vol] 13 U/L Normal 10-40 [facility] ([place] Comment on above: Performed By: #### P REGU, UA #### [address] [address] Bili Total 0.5 mg/dL Normal 0.2-1.0 [facility] ([place] Comment on above: Result Comment: Use of this assay is not recommended for patients undergoing treatment with eltrombopag due to the potential for falsely elevated results. Performed By: #### P REGU, UA #### [address] [address] BUN/Creatinine Ratio 14 ratio Normal 7-27 [facility] ([place] Comment on above: Performed By: #### P REGU, UA #### [address] [address] Calcium [Mass/Vol] 8.8 mg/dL Normal 8.4-10.2 [facility] ([place]) Comment on above: Performed By: #### P REGU, UA #### [address] [address] Chloride [Moles/Vol] 107 mmol/L Normal 98-107 [facility] ([place] Comment on above: Performed By: #### P REGU, UA #### [address] [address] CO2 [Moles/Vol] 25 mmol/L Normal 22-29 [facility] ([place] Comment on above: Performed By: #### P REGU, UA #### [address] [address] Creatinine [Mass/Vol] 0.84 mg/dL Normal 0.55-1.02 [facility] ([place] Comment on above: Performed By: #### P REGU, UA #### [address] [address] Electrolyte Balance 11.0 mEq/L Normal 4.0-15.0 [facility] ([place]) Comment on above: Performed By: #### P REGU, UA #### [address] [address] Globulin 2.6 G/dL Normal [facility] ([place] Comment on above: Performed By: #### P REGU, UA #### [address] [address] Glucose [Mass/Vol] 83 mg/dL Normal 70-105 [facility] ([place] Comment on above: Performed By: #### P REGU, UA #### [address] [address] Potassium [Moles/Vol] 4.1 mmol/L Normal 3.5-5.1 [facility] ([place] Comment on above: Performed By: #### P REGU, UA #### [address] [address] Sodium [Moles/Vol] 143 mmol/L Normal 136-145 [facility] ([place] Comment on above: Performed By: #### P REGU, PILI #### [address] [place] [address] [place], [place] [address] Total Protein 6.9 G/dL Normal 6.4-8.2 [facility] ([place] Comment on above: Performed By: #### P REGU, UA #### [address] [place] [address] [place], [place] [address] Urea nitrogen [Mass/Vol] 12 mg/dL Normal 7-18 [facility]) Comment on above: Performed By: #### P REGU, UA #### [place] [address] [place], [place] [address] CT HEAD OR BRAIN W/O CONTRAS Ton 03-15-2024 CT HEAD OR BRAIN W/O CONTRAST ORIGINAL HISTORY: Headache COMPARISON: No TECHNIQUE: Routine noncontrast head CT, with sagittal and coronal reconstructions. This exam was performed according to our departmental dose optimization program, and includes the following measures where applicable: automated exposure control, adjustment of the mAs and/or kVp according to patient size and/or exam, and an iterative reconstruction algorithm. FINDINGS: The ventricles and sulci are normal in size and configuration. There are no abnormal intra or extra-axial fluid collections. Lorenzo-white matter differentiation is maintained. The calvaria and the bones of the base of the skull are intact. IMPRESSION: Normal examination. Interpreted by: Lon Almaguer MD Preliminary Report By: Lon Almaguer MD Electronically signed By Lon Almaguer MD Dictated Date: 03/15/2024 1:48:50 PM Prelim Date: 03/15/2024 2:12:13 PM Sign Date: 03/15/2024 2:12:13 PM Ordering Provider: NICOLETTE ESQUIVEL [facility] ([place]) LABORATORYOrdered By: SYSTEM SYSTEM on 03-15-2024 Albumin BCP dye [Mass/Vol] 4.3 G/dL Normal 3.5 - 5.0 G/dL AO ADM SS Albumin/Globulin [Mass ratio] 1.7 {ratio} Normal 1.1 - 2.5 ratio AO ADM SS ALP [Catalytic activity/Vol] 81 U/L Normal 40 - 135 U/L AO ADM SS ALT With P-5'-P [Catalytic activity/Vol] 18 U/L Normal 14 - 59 U/L AO ADM SS AST With P-5'-P [Catalytic activity/Vol] 13 U/L Normal 10 - 40 U/L AO ADM SS Basophil, Absolute 0.1 103/mcL Normal 0.0 - 0.2 10^3/mcL AO Workflow SS Basophils/100 WBC (Bld) 0.8 % Normal 0.0 - 2.5 % AO Workflow SS Bilirubin [Mass/Vol] 0.5 mg/dL Normal 0.2 - 1.0 mg/dL AO ADM SS Comment on above: Interpretive Data: U se of this assay is not recommended for patients undergoing treatment with eltrombopag due to the potential for falsely elevated results. Calcium [Mass/Vol] 8.8 mg/dL Normal 8.4 - 10. 2 mg/dL AO ADM SS Chloride [Moles/Vol] 107 mmol/L Normal 98 - 107 mmol/L AO ADM SS CO2 [Moles/Vol] 25 mmol/L Normal 22 - 29 mmol/L AO ADM SS Creatinine [Mass/Vol] 0.84 mg/dL Normal 0.55 - 1.02 mg/dL AO ADM SS Electrolyte Balance 11.0 mEq/L Normal 4.0 - 15 .0 mEq/L AO ADM SS Eosinophil, Absolute 0.3 103/mcL Normal 0.0 - 0.4 10^3/mcL AO Workflow SS Eosinophils/100 WBC (Bld) 3.8 % Normal 0.0 - 7.0 % AO Workflow SS Erythrocyte distribution width (RBC) [Ratio] 13.6 % Normal 11.5 - 14.5 % AO Workflow SS GFR/1.73 sq M.predicted among blacks MDRD (S/P/Bld) [Vol rate/Area] 105 ml/min/1.73sqm Invalid Interpretation Code AO Chemistry S Comment on above: Interpretive Data: GFR Population mean for , Non- Americans Ages 20-29 = 116 mL/min/1.73 sq.m. Ages 30-39 = 107 mL/min/1.73 sq.m. Ages 40-49 = 99 mL/min/1.73 sq.m. Ages 50-59 = 93 mL/min/1.73 sq.m. Ages 60-69 = 85 mL/min/1.73 sq.m. Ages 70+ = 75 mL/min/1.73 sq.m. Chronic Kidney Disease: Less than 60 mL/min/1.73 square meters End Stage Renal Disease: Less than 15 mL/min/1.73 square meters GFR/1.73 sq M.predicted among non-blacks MDRD (S/P/Bld) [Vol rate/Area] 86 ml/min/1.73sqm Invalid Interpretation Code AO Chemistry S Comment on above: Interpretive Data: GFR Population mean for , Non- Americans Ages 20-29 = 116 mL/min/1.73 sq.m. Ages 30-39 = 107 mL/min/1.73 sq.m. Ages 40-49 = 99 mL/min/1.73 sq.m. Ages 50-59 = 93 mL/min/1.73 sq.m. Ages 60-69 = 85 mL/min/1.73 sq.m. Ages 70+ = 75 mL/min/1.73 sq.m. Chronic Kidney Disease: Less than 60 mL/min/1.73 square meters End Stage Renal Disease: Less than 15 mL/min/1.73 square meters Globulin 2.6 G/dL Invalid Interpretation Code AO ADM SS Glucose [Mass/Vol] 83 mg/dL Normal 70 - 105 mg/dL AO ADM SS Hematocrit (Bld) [Volume fraction] 37.5 % Normal 37.0 - 47.0 % AO Workflow SS Hemoglobin (Bld) [Mass/Vol] 13.2 G/dL Normal 12.0 - 16.0 G/dL AO Workflow SS Lymphocyte, Absolute 2.2 103/mcL Normal 0.8 - 3.9 10^3/mcL AO Workflow SS Lymphocytes/100 WBC (Bld) 29.4 % Normal 10.0 - 50.0 % AO Workflow SS MCH (RBC) [Entitic mass] 28.7 pg Normal 27.0 - 31.2 pg AO Workflow SS MCHC 35.1 G/dL Normal 33.0 - 37.0 G/dL AO Workflow SS MCV (RBC) [Entitic vol] 81.8 fL Normal 80.0 - 94.0 fL AO Workflow SS Monocyte, Absolute 0.8 103/mcL Normal 0.2 - 1.0 10^3/mcL AO Workflow SS Monocytes/100 WBC (Bld) 11.5 % Normal 1.7 - 13.0 % AO Workflow SS Neutrophil, Absolute 4.0 103/mcL Normal 2.9 - 6.2 10^3/mcL AO Workflow SS Neutrophils/100 WBC (Bld) 54.5 % Normal 37.0 - 80.0 % AO Workflow SS Platelet mean volume (Bld) [Entitic vol] 8.7 fL Normal 7.4 - 10.4 fL AO Workflow SS Platelets (Bld) [#/Vol] 270 103/mcL Normal 130 - 400 10^3/mcL AO Workflow SS Potassium [Moles/Vol] 4.1 mmol/L Normal 3.5 - 5.1 mmol/L AO ADM SS Protein [Mass/Vol] 6.9 G/dL Normal 6.4 - 8.2 G/dL AO ADM SS RBC (Bld) [#/Vol] 4.59 106/mcL Normal 4.20 - 5.4 0 10^6/mcL AO Workflow SS Sodium [Moles/Vol] 143 mmol/L Normal 136 - 145 mmol/L AO ADM SS Urea nitrogen [Mass/Vol] 12 mg/dL Normal 7 - 18 mg/dL AO ADM SS Urea nitrogen/Creatinine [Mass ratio] 14 ratio Normal 7 - 27 ratio AO ADM SS WBC (Bld) [#/Vol] 7.3 103/mcL Normal 4.6 - 10.8 10^3/mcL AO Workflow SS ENDOon 11-15-2023 TTG Ab (IgA) <4.0 Normal <=3.9 [facility] ([place]) Comment on above: Result Comment: Norma harley 06/13/2023: Evaluation of Transglutaminase Ab (IgA) results: Negative: Less than 4.0 Weak positive: 4.0 to 10.0 Positive: Greater than 10.0 Transglutaminase Ab is present in approximately 95% to 100% of patients with celiac disease and 80% of patients with dermatitis herpetiformis. The antibody is rarely found in other conditions. Transglutaminase Ab levels will decrease or increase depending on the removal or reintroduction of gluten into the diet. Patients who are IgA deficient develop celiac disease more frequently than individuals who have an intact IgA system. Therefore, gliadin and transglutaminase IgA antibodies may be absent in patients with celiac disease. IgG antibodies to gliadin are especially helpful in IgA deficient patients. These test results were obtained with the [employer]ismaStar QUANTA Lite R-tTG IgA CAREY. R-tTG IgA values obtained with different manufacturers' assay methods may not be used interchangeably. Performed By: #### P DEANDRE, #### [id number] [place], [place] [address] GLIADon 11-08-2023 Gliadin Ab IgA <20 Normal <=19 [facility] ([place]) Comment on above: Result Comment: Glia din IgG and IgA Ab Interpretation (effective 10/16/07): Result Units Negative <20 Weak Positive 20-30 Moderate to Strong Positive >30 Both IgG and IgA antibodies to gliadin are present in most patients with celiac disease (CD). However, antibody to gliadin may be present in Crohn's disease, dermatitis herpetiformis or in subjects with no clinical evidence of intestinal disease. In healthy individuals with a family history of CD, the antibodies may precede the clinical onset of disease in approximately 25% of the subjects. Gliadin antibody levels will decrease or increase depending on the removal or reintroduction of gluten into the diet. Patients who are IgA deficient develop celiac disease more frequently than individuals who have an intact IgA system. Therefore, gliadin and transglutaminase IgA antibodies may be absent in patients with celiac disease. IgG antibodies to gliadin are especially helpful in IgA deficient patients. A negative result indicates no gliadin antibody or levels below the negative cut-off of the assay. Results of this assay should be used in conjunction with clinical findings and other serological tests. These test results were obtained with the [employer]isma[employer] QUANTA Lite Gliadin IgG II and Gliadin IgA II. Gliadin values obtained with different manufacturers' assay methods may not be used interchangeably. Performed By: #### P DEANDRE, #### [id number] [place], [place] [address] Gliadin Ab IgG <20 Normal <=19 [facility] ([place]) Comment on above: Result Comment: Glia din IgG and IgA Ab Interpretation (effective 10/16/07): Result Units Negative <20 Weak Positive 20-30 Moderate to Strong Positive >30 Both IgG and IgA antibodies to gliadin are present in most patients with celiac disease (CD). However, antibody to gliadin may be present in Crohn's disease, dermatitis herpetiformis or in subjects with no clinical evidence of intestinal disease. In healthy individuals with a family history of CD, the antibodies may precede the clinical onset of disease in approximately 25% of the subjects. Gliadin antibody levels will decrease or increase depending on the removal or reintroduction of gluten into the diet. Patients who are IgA deficient develop celiac disease more frequently than individuals who have an intact IgA system. Therefore, gliadin and transglutaminase IgA antibodies may be absent in patients with celiac disease. IgG antibodies to gliadin are especially helpful in IgA deficient patients. A negative result indicates no gliadin antibody or levels below the negative cut-off of the assay. Results of this assay should be used in conjunction with clinical findings and other serological tests. These test results were obtained with the [employer]Star QUANTA Lite Gliadin IgG II and Gliadin IgA II. Gliadin values obtained with different manufacturers' assay methods may not be used interchangeably. Performed By: #### P REGU, UA #### [address] [address] CRPon 11-07-2023 CRP [Mass/Vol] mg/L Normal 0.0-0.3 [facility] ([place]) Comment on above: Performed By: #### P REGU, UA #### [address] [address] XR UPPER GI W/AIR CONTRASTon 10-03-2023 XR UPPER GI W/AIR CONTRAST ORIGINAL EXAMINATION: DOUBLE CONTRAST UPPER GI SERIES 10/03/2023 TECHNIQUE: Double contrast upper GI series was performed with barium and air contrast. FLUOROSCOPY DOSE AND TYPE: Radiation Exposure Index: Kerma mGy, 31.2. 52 seconds. COMPARISON: CT abdomen pelvis 09/22/2023 HISTORY: ORDERING SYSTEM PROVIDED HISTORY: Reason for Exam: epigastric pain, nausea and vomiting FINDINGS: Monomer Recovery Operator image demonstrates a nonobstructive bowel gas pattern. There is moderate stool in the right colon. Patient swallowed barium without difficulty. Esophagus appears normal in course and caliber. Normal gastric distensibility. Stomach appears unremarkable. Duodenal bulb and sweep appear unremarkable. No hiatal hernia. Moderate to severe gastroesophageal reflux was identified. IMPRESSION: Moderate to severe gastroesophageal reflux. Interpreted by: Geeta Nguyen MD Preliminary Report By: Geeta Nguyen MD Electronically signed By Geeta Nguyen MD Dictated Date: 10/03/2023 9:31:03 AM Prelim Date: 10/03/2023 9:33:57 AM Sign Date: 10/03/2023 9:33:57 AM Ordering Provider: PROSPER Smith [facility] ([place]) .GFRon 09-26-2023 GFR 119 ml/min/1.73sqm Normal [facility] ([place] Comment on above: Result Comment: GFR Population mean for , Non- Americans Ages 20-29 = 116 mL/min/1.73 sq.m. Ages 30-39 = 107 mL/min/1.73 sq.m. Ages 40-49 = 99 mL/min/1.73 sq.m. Ages 50-59 = 93 mL/min/1.73 sq.m. Ages 60-69 = 85 mL/min/1.73 sq.m. Ages 70+ = 75 mL/min/1.73 sq.m. Chronic Kidney Disease: Less than 60 mL/min/1.73 square meters End Stage Renal Disease: Less than 15 mL/min/1.73 square meters Performed By: #### P REGU, UAMICAO, UA #### [address] [address] GFR Non- 99 ml/min/1.73sqm Normal [facility] ([place]) Comment on above: Result Comment: GFR Population mean for , Non- Americans Ages 20-29 = 116 mL/min/1.73 sq.m. Ages 30-39 = 107 mL/min/1.73 sq.m. Ages 40-49 = 99 mL/min/1.73 sq.m. Ages 50-59 = 93 mL/min/1.73 sq.m. Ages 60-69 = 85 mL/min/1.73 sq.m. Ages 70+ = 75 mL/min/1.73 sq.m. Chronic Kidney Disease: Less than 60 mL/min/1.73 square meters End Stage Renal Disease: Less than 15 mL/min/1.73 square meters Performed By: #### P REGU, UAMICAO, UA #### Geoffrey [address] [address] CMPon 09-26-2023 Albumin Level 3.9 G/dL Normal 3.5-5.0 [facility] ([place] Comment on above: Performed By: #### P REGU, UAMICAO, UA #### [address] [address] Albumin/Globulin [Mass ratio] 1.3 {ratio} Normal 1.1-2.5 [facility] ([place] Comment on above: Performed By: #### P REGU, UAMICAO, UA #### [address] [address] ALP [Catalytic activity/Vol] 75 U/L Normal 40-135 [facility] ([place] Comment on above: Performed By: #### P REGU, UAMICAO, UA #### [address] [address] ALT [Catalytic activity/Vol] 16 U/L Normal 14-59 [facility] ([place] Comment on above: Performed By: #### P REGU, UAMICAO, UA #### [address] [address] AST [Catalytic activity/Vol] 18 U/L Normal 10-40 [facility] ([place] Comment on above: Performed By: #### P REGU, UAMICAO, UA #### [address] [address] Bili Total 0.3 mg/dL Normal 0.2-1.0 [facility] ([place] Comment on above: Result Comment: Use of this assay is not recommended for patients undergoing treatment with eltrombopag due to the potential for falsely elevated results. Performed By: #### P REGU, UAMICAO, UA #### [address] [address] BUN/Creatinine Ratio 12 ratio Normal 7-27 [facility] ([place] Comment on above: Performed By: #### P REGU, UAMICAO, UA #### [address] [address] Calcium [Mass/Vol] 8.7 mg/dL Normal 8.4-10.2 [facility] ([place]) Comment on above: Performed By: #### P REGU, UAMICAO, UA #### [address] [address] Chloride [Moles/Vol] 106 mmol/L Normal 98-107 [facility] ([place] Comment on above: Performed By: #### P REGU, UAMICAO, UA #### [address] [address] CO2 [Moles/Vol] 27 mmol/L Normal 22-29 [facility] ([place] Comment on above: Performed By: #### P REGU, UAMICAO, UA #### [address] [address] Creatinine [Mass/Vol] 0.75 mg/dL Normal 0.55-1.02 [facility] ([place] Comment on above: Performed By: #### P REGU, UAMICAO, UA #### [address] [address] Electrolyte Balance 10.0 mEq/L Normal 4.0-15.0 [facility] ([place]) Comment on above: Performed By: #### P REGU, UAMICAO, UA #### [address] [address] Globulin 3.0 G/dL Normal [facility] ([place] Comment on above: Performed By: #### P REGU, UAMICAO, UA #### [address] [address] Glucose [Mass/Vol] 92 mg/dL Normal 70-105 [facility] ([place]) Comment on above: Performed By: #### P REGU, UAMICAO, UA #### [address] [address] Potassium [Moles/Vol] 4.2 mmol/L Normal 3.5-5.1 [facility] ([place] Comment on above: Performed By: #### P REGU, UAMICAO, UA #### [address] [address] Sodium [Moles/Vol] 143 mmol/L Normal 136-145 [facility] ([place]) Comment on above: Performed By: #### P REGU, UAMICAO, UA #### [facility] [address] [place], [place] [address] Total Protein 6.9 G/dL Normal 6.4-8.2 [facility] ([place] Comment on above: Performed By: #### P REGU, UAMICAO, UA #### [address] [place], [place] [address] Urea nitrogen [Mass/Vol] 9 mg/dL Normal 7-18 [facility] ([place] Comment on above: Performed By: #### P REGU, UAMICAO, UA #### [address] [place], [place] [address] LABORATORYOrdered By: SYSTEM SYSTEM on 09-26-2023 Albumin BCP dye [Mass/Vol] 3.9 G/dL Invalid Interpretation Code 3.5 - 5.0 G/dL AO ADM SS Albumin/Globulin [Mass ratio] 1.3 {ratio} Invalid Interpretation Code 1.1 - 2.5 ratio AO ADM SS ALP [Catalytic activity/Vol] 75 U/L Invalid Interpretation Code 40 - 135 U/L AO ADM SS ALT With P-5'-P [Catalytic activity/Vol] 16 U/L Invalid Interpretation Code 14 - 59 U/L AO ADM SS AST With P-5'-P [Catalytic activity/Vol] 18 U/L Invalid Interpretation Code 10 - 40 U/L AO ADM SS Bilirubin [Mass/Vol] 0.3 mg/dL Invalid Interpretation Code 0.2 - 1.0 mg/dL AO ADM SS Comment on above: Interpretive Data: U se of this assay is not recommended for patients undergoing treatment with eltrombopag due to the potential for falsely elevated results. Calcium [Mass/Vol] 8.7 mg/dL Invalid Interpretation Code 8.4 - 10.2 mg/dL AO ADM SS Chloride [Moles/Vol] 106 mmol/L Invalid Interpretation Code 98 - 107 mmol/L AO ADM SS CO2 [Moles/Vol] 27 mmol/L Invalid Interpretation Code 22 - 29 mmol/L AO ADM SS Creatinine [Mass/Vol] 0.75 mg/dL Invalid Interpretation Code 0.55 - 1.02 mg/dL AO ADM SS Electrolyte Balance 10.0 mEq/L Invalid Interpretation Code 4.0 - 15.0 mEq/L AO ADM SS GFR/1.73 sq M.predicted among blacks MDRD (S/P/Bld) [Vol rate/Area] 119 ml/min/1.73sqm Invalid Interpretation Code AO Chemistry S Comment on above: Interpretive Data: GFR Population mean for , Non- Americans Ages 20-29 = 116 mL/min/1.73 sq.m. Ages 30-39 = 107 mL/min/1.73 sq.m. Ages 40-49 = 99 mL/min/1.73 sq.m. Ages 50-59 = 93 mL/min/1.73 sq.m. Ages 60-69 = 85 mL/min/1.73 sq.m. Ages 70+ = 75 mL/min/1.73 sq.m. Chronic Kidney Disease: Less than 60 mL/min/1.73 square meters End Stage Renal Disease: Less than 15 mL/min/1.73 square meters GFR/1.73 sq M.predicted among non-blacks MDRD (S/P/Bld) [Vol rate/Area] 99 ml/min/1.73sqm Invalid Interpretation Code AO Chemistry S Comment on above: Interpretive Data: GFR Population mean for , Non- Americans Ages 20-29 = 116 mL/min/1.73 sq.m. Ages 30-39 = 107 mL/min/1.73 sq.m. Ages 40-49 = 99 mL/min/1.73 sq.m. Ages 50-59 = 93 mL/min/1.73 sq.m. Ages 60-69 = 85 mL/min/1.73 sq.m. Ages 70+ = 75 mL/min/1.73 sq.m. Chronic Kidney Disease: Less than 60 mL/min/1.73 square meters End Stage Renal Disease: Less than 15 mL/min/1.73 square meters Globulin 3.0 G/dL Invalid Interpretation Code AO ADM SS Glucose [Mass/Vol] 92 mg/dL Invalid Interpretation Code 70 - 105 mg/dL AO ADM SS Potassium [Moles/Vol] 4.2 mmol/L Invalid Interpretation Code 3.5 - 5.1 mmol/L AO ADM SS Protein [Mass/Vol] 6.9 G/dL Invalid Interpretation Code 6.4 - 8.2 G/dL AO ADM SS Sodium [Moles/Vol] 143 mmol/L Invalid Interpretation Code 136 - 145 mmol/L AO ADM SS Urea nitrogen [Mass/Vol] 9 mg/dL Invalid Interpretation Code 7 - 18 mg/dL AO ADM SS Urea nitrogen/Creatinine [Mass ratio] 12 ratio Invalid Interpretation Code 7 - 27 ratio AO ADM SS .Auto Diffon 09-22-2023 Basophil, Absolute 0.1 10 3/mcL Normal 0.0-0.2 [facility] ([place]) Comment on above: Performed By: #### P REGU, UA #### [address] [address] Basophils/100 WBC (Bld) 0.3 % Normal 0.0-2.5 [facility] ([place] Comment on above: Performed By: #### P REGU, UA #### [address] [address] Eosinophil, Absolute 0.1 10 3/mcL Normal 0.0-0.4 [facility] ([place] Comment on above: Performed By: #### P REGU, UA #### [address] [address] Eosinophils/100 WBC (Bld) 0.4 % Normal 0.0-7.0 [facility] ([place] Comment on above: Performed By: #### P REGU, UA #### [address] [address] Lymphocyte, Absolute 0.5 10 3/mcL Low 0.8-3.9 [facility] ([place] Comment on above: Performed By: #### P REGU, UA #### [address] [address] Lymphocytes/100 WBC (Bld) 3.5 % Low 10.0-50.0 [facility] ([place] Comment on above: Performed By: #### P REGU, UA #### [address] [address] Monocyte, Absolute 0.7 10 3/mcL Normal 0.2-1.0 [facility] ([place] Comment on above: Performed By: #### P REGU, UA #### [address] [address] Monocytes/100 WBC (Bld) 4.5 % Normal 1.7-13.0 [facility] ([place] Comment on above: Performed By: #### P REGU, UA #### [address] [place], [place] [address] Neutrophils/100 WBC (Bld) 91.3 % High 37.0-80.0 [facility] ([place] Comment on above: Performed By: #### P REGU, UA #### [address] [place], [place] [address] .GFRon 09-22-2023 GFR Non- 83 ml/min/1.73sqm Normal [facility] ([place] Comment on above: Result Comment: GFR Population mean for , Non- Americans Ages 20-29 = 116 mL/min/1.73 sq.m. Ages 30-39 = 107 mL/min/1.73 sq.m. Ages 40-49 = 99 mL/min/1.73 sq.m. Ages 50-59 = 93 mL/min/1.73 sq.m. Ages 60-69 = 85 mL/min/1.73 sq.m. Ages 70+ = 75 mL/min/1.73 sq.m. Chronic Kidney Disease: Less than 60 mL/min/1.73 square meters End Stage Renal Disease: Less than 15 mL/min/1.73 square meters Performed By: #### P REGU, UAMICAO, UA #### [address] [place], [place] [address] GFR 101 ml/min/1.73sqm Normal [facility] ([place] Comment on above: Result Comment: GFR Population mean for , Non- Americans Ages 20-29 = 116 mL/min/1.73 sq.m. Ages 30-39 = 107 mL/min/1.73 sq.m. Ages 40-49 = 99 mL/min/1.73 sq.m. Ages 50-59 = 93 mL/min/1.73 sq.m. Ages 60-69 = 85 mL/min/1.73 sq.m. Ages 70+ = 75 mL/min/1.73 sq.m. Chronic Kidney Disease: Less than 60 mL/min/1.73 square meters End Stage Renal Disease: Less than 15 mL/min/1.73 square meters Performed By: #### VARSHA GALVAN UA #### [address] [address] .MDWon 09-22-2023 Monocyte Distribution Width 20.95 High 0.00-20.00 [facility] ([place]) Comment on above: Result Comment: For adults in ED, MDW>20.0 may be associated with a higher risk of sepsis during the first 12hrs of hospital admission Performed By: #### Ly CARRERA UA #### [address] .NEUABSon 09-22-2023 Neutrophil, Absolute 13.3 10 3/mcL High 2.9-6.2 [facility] ([place] Comment on above: Performed By: #### Ly CARRERA UA #### [id number] CBCon 09-22-2023 Erythrocyte distribution width (RBC) [Ratio] 13.3 % Normal 11.5-14.5 [facility] ([place] Comment on above: Performed By: #### PILI GALVAN #### [address] [address] Hematocrit (Bld) [Volume fraction] 41.3 % Normal 37.0-47.0 [facility] ([place] Comment on above: Performed By: #### Ly CARRERA UA #### [address] [address] Hgb 14.0 G/dL Normal 12.0-16.0 [facility] ([place] Comment on above: Performed By: #### Ly CARRERA UA #### [address] [place] [id number] MCH (RBC) [Entitic mass] 27.5 pg Normal 27.0-31.2 [facility] ([place] Comment on above: Performed By: #### Ly CARRERA UA #### [address] [address] MCHC 33.8 G/dL Normal 33.0-37.0 [facility] ([place] Comment on above: Performed By: #### PILI GALVAN #### [address] [address] MCV (RBC) [Entitic vol] 81.5 fL Normal 80.0-94.0 [facility] ([place] Comment on above: Performed By: #### Ly CARRERA UA #### [address] [address] Platelet 297 10 3/mcL Normal 130-400 [facility] ([place] Comment on above: Performed By: #### Ly CARRERA UA #### Geoffrey [address] [address] Platelet mean volume (Bld) [Entitic vol] 7.8 fL Normal 7.4-10.4 [facility] ([place] Comment on above: Performed By: #### Ly CARRERA UA #### [address] [address] RBC 5.07 10 6/mcL Normal 4.20-5.40 [facility] ([place] Comment on above: Performed By: #### PILI GALVAN #### Geoffrey [address] [address] WBC 14.6 10 3/mcL High 4.6-10.8 [facility] ([place] Comment on above: Performed By: #### PILI GALVAN #### [address] [address] CMPon 09-22-2023 Albumin Level 4.8 G/dL Normal 3.5-5.0 [facility] ([place] Comment on above: Performed By: #### VARSHA GALVAN UA #### [address] [address] Albumin/Globulin [Mass ratio] 1.5 {ratio} Normal 1.1-2.5 [facility] ([place] Comment on above: Performed By: #### VARSHA GALVAN UA #### [address] [address] ALP [Catalytic activity/Vol] 100 U/L Normal 40-135 [facility] ([place] Comment on above: Performed By: #### P REGU, UAMICAO, UA #### [address] [address] ALT [Catalytic activity/Vol] 17 U/L Normal 14-59 [facility] ([place] Comment on above: Performed By: #### P REGU, UAMICAO, UA #### [address] [address] AST [Catalytic activity/Vol] 19 U/L Normal 10-40 [facility] ([place] Comment on above: Performed By: #### P REGU, UAMICAO, UA #### [address] [address] Bili Total 1.1 mg/dL High 0.2-1.0 [facility] ([place] Comment on above: Result Comment: Use of this assay is not recommended for patients undergoing treatment with eltrombopag due to the potential for falsely elevated results. Performed By: #### P REGU, UAMICAO, UA #### [address] [place] [address] BUN/Creatinine Ratio 16 ratio Normal 7-27 [facility] ([place] Comment on above: Performed By: #### P REGU, UAMICAO, UA #### [address] [address] Calcium [Mass/Vol] 9.1 mg/dL Normal 8.4-10.2 [facility] ([place]) Comment on above: Performed By: #### P REGU, UAMICAO, UA #### [place] [id number] Chloride [Moles/Vol] 101 mmol/L Normal 98-107 [facility] ([place] Comment on above: Performed By: #### P REGU, UAMICAO, UA #### [address] [address] CO2 [Moles/Vol] 24 mmol/L Normal 22-29 [facility] ([place] Comment on above: Performed By: #### P REGU, UAMICAO, UA #### [address] [address] Creatinine [Mass/Vol] 0.87 mg/dL Normal 0.55-1.02 [facility] ([place] Comment on above: Performed By: #### P REGU, UAMICAO, UA #### [address] [address] Electrolyte Balance 15.0 mEq/L Normal 4.0-15.0 [facility] ([place]) Comment on above: Performed By: #### P REGU, UAMICAO, UA #### [address] [address] Globulin 3.2 G/dL Normal [facility] ([place] Comment on above: Performed By: #### P REGU, UAMICAO, UA #### [address] [address] Glucose [Mass/Vol] 99 mg/dL Normal 70-105 [facility] ([place] Comment on above: Performed By: #### P REGU, UAMICAO, UA #### [address] [address] Potassium [Moles/Vol] 3.4 mmol/L Low 3.5-5.1 [facility] ([place] Comment on above: Performed By: #### P REGU, UAMICAO, UA #### [address] [address] Sodium [Moles/Vol] 140 mmol/L Normal 136-145 [facility] ([place] Comment on above: Performed By: #### P REGU, UAMICAO, UA #### [address] [address] Total Protein 8.0 G/dL Normal 6.4-8.2 [facility] ([place] Comment on above: Performed By: #### P REGU, UAMICAO, UA #### [address] [place], [place] [address] Urea nitrogen [Mass/Vol] 14 mg/dL Normal 7-18 [facility] ([place] Comment on above: Performed By: #### P REGU, UAMICAO, UA #### [address] [place], [place] [address] CT ABD/PELVIS W/ IV CONTRAST ONLYon 09-22-2023 CT ABD/PELVIS W/ IV CONTRAST ONLY ORIGINAL EXAMINATION: CT OF THE ABDOMEN AND PELVIS WITH CONTRAST 09/22/2023 10:06 pm TECHNIQUE: CT of the abdomen and pelvis was performed with the administration of intravenous contrast. Multiplanar reformatted images are provided for review. Automated exposure control, iterative reconstruction, and/or weight based adjustment of the mA/kV was utilized to reduce the radiation dose to as low as reasonably achievable. COMPARISON: None. HISTORY: ORDERING SYSTEM PROVIDED HISTORY: Reason for Exam: reports RLQ pain that radiates to the back with emesis. pain FINDINGS: No acute osseous abnormality. Included thoracic structures are unremarkable. Normal liver, gallbladder, spleen, pancreas, and adrenal glands. Symmetric nephrograms without evidence of hydronephrosis or nephrolithiasis. Nonaneurysmal abdominal aorta. No abdominal lymphadenopathy, free fluid, or intraperitoneal free air identified. No acute GI abnormality. Under distended urinary bladder limiting evaluation. Small amount of fluid within the endometrial canal likely physiologic. Small fat containing umbilical hernia. IMPRESSION: No acute findings to explain patient's symptoms. I have personally reviewed the images of this examination and agree with the resident's finding and interpretation. Interpreted by: Samm Dee MD Preliminary Report By: Ree Matos Electronically signed By Samm Dee MD Dictated Date: 09/22/2023 10:08:59 PM Prelim Date: 09/22/2023 10:13:02 PM Sign Date: 09/22/2023 10:16:08 PM Ordering Provider: DAIN Smith [facility] ([place]) LABORATORYOrdered By: SYSTEM SYSTEM on 09-22-2023 Albumin BCP dye [Mass/Vol] 4.8 G/dL Invalid Interpretation Code 3.5 - 5.0 G/dL AO ADM SS Albumin/Globulin [Mass ratio] 1.5 {ratio} Invalid Interpretation Code 1.1 - 2.5 ratio AO ADM SS ALP [Catalytic activity/Vol] 100 U/L Invalid Interpretation Code 40 - 135 U/L AO ADM SS ALT With P-5'-P [Catalytic activity/Vol] 17 U/L Invalid Interpretation Code 14 - 59 U/L AO ADM SS AST With P-5'-P [Catalytic activity/Vol] 19 U/L Invalid Interpretation Code 10 - 40 U/L AO ADM SS Basophil, Absolute 0.1 103/mcL Invalid Interpretation Code 0.0 - 0.2 10^3/mcL AO Workflow SS Basophils/100 WBC (Bld) 0.3 % Invalid Interpretation Code 0.0 - 2.5 % AO Workflow SS Bilirubin [Mass/Vol] 1.1 mg/dL Invalid Interpretation Code 0.2 - 1.0 mg/dL AO ADM SS Comment on above: Interpretive Data: U se of this assay is not recommended for patients undergoing treatment with eltrombopag due to the potential for falsely elevated results. Calcium [Mass/Vol] 9.1 mg/dL Invalid Interpretation Code 8.4 - 10.2 mg/dL AO ADM SS Chloride [Moles/Vol] 101 mmol/L Invalid Interpretation Code 98 - 107 mmol/L AO ADM SS CO2 [Moles/Vol] 24 mmol/L Invalid Interpretation Code 22 - 29 mmol/L AO ADM SS Creatinine [Mass/Vol] 0.87 mg/dL Invalid Interpretation Code 0.55 - 1.02 mg/dL AO ADM SS Electrolyte Balance 15.0 mEq/L Invalid Interpretation Code 4.0 - 15.0 mEq/L AO ADM SS Eosinophil, Absolute 0.1 103/mcL Invalid Interpretation Code 0.0 - 0.4 10^3/mcL AO Workflow SS Eosinophils/100 WBC (Bld) 0.4 % Invalid Interpretation Code 0.0 - 7.0 % AO Workflow SS Erythrocyte distribution width (RBC) [Ratio] 13.3 % Invalid Interpretation Code 11.5 - 14.5 % AO Workflow SS GFR/1.73 sq M.predicted among blacks MDRD (S/P/Bld) [Vol rate/Area] 101 ml/min/1.73sqm Invalid Interpretation Code AO Chemistry S Comment on above: Interpretive Data: GFR Population mean for , Non- Americans Ages 20-29 = 116 mL/min/1.73 sq.m. Ages 30-39 = 107 mL/min/1.73 sq.m. Ages 40-49 = 99 mL/min/1.73 sq.m. Ages 50-59 = 93 mL/min/1.73 sq.m. Ages 60-69 = 85 mL/min/1.73 sq.m. Ages 70+ = 75 mL/min/1.73 sq.m. Chronic Kidney Disease: Less than 60 mL/min/1.73 square meters End Stage Renal Disease: Less than 15 mL/min/1.73 square meters GFR/1.73 sq M.predicted among non-blacks MDRD (S/P/Bld) [Vol rate/Area] 83 ml/min/1.73sqm Invalid Interpretation Code AO Chemistry S Comment on above: Interpretive Data: GFR Population mean for , Non- Americans Ages 20-29 = 116 mL/min/1.73 sq.m. Ages 30-39 = 107 mL/min/1.73 sq.m. Ages 40-49 = 99 mL/min/1.73 sq.m. Ages 50-59 = 93 mL/min/1.73 sq.m. Ages 60-69 = 85 mL/min/1.73 sq.m. Ages 70+ = 75 mL/min/1.73 sq.m. Chronic Kidney Disease: Less than 60 mL/min/1.73 square meters End Stage Renal Disease: Less than 15 mL/min/1.73 square meters Globulin 3.2 G/dL Invalid Interpretation Code AO ADM SS Glucose [Mass/Vol] 99 mg/dL Invalid Interpretation Code 70 - 105 mg/dL AO ADM SS Hematocrit (Bld) [Volume fraction] 41.3 % Invalid Interpretation Code 37.0 - 47.0 % AO Workflow SS Hemoglobin (Bld) [Mass/Vol] 14.0 G/dL Invalid Interpretation Code 12.0 - 16.0 G/dL AO Workflow SS Lipase [Catalytic activity/Vol] 27 U/L Invalid Interpretation Code 16 - 77 U/L AO ADM SS Lymphocyte, Absolute 0.5 103/mcL Invalid Interpretation Code 0.8 - 3.9 10^3/mcL AO Workflow SS Lymphocytes/100 WBC (Bld) 3.5 % Invalid Interpretation Code 10.0 - 50.0 % AO Workflow SS MCH (RBC) [Entitic mass] 27.5 pg Invalid Interpretation Code 27.0 - 31.2 pg AO Workflow SS MCHC 33.8 G/dL Invalid Interpretation Code 33.0 - 37.0 G/dL AO Workflow SS MCV (RBC) [Entitic vol] 81.5 fL Invalid Interpretation Code 80.0 - 94.0 fL AO Workflow SS Monocyte distribution width Auto (Bld) [Entitic vol] 20.95 1 Invalid Interpretation Code 0.00 - 20.00 AO Workflow SS Comment on above: Result Comment: For adults in ED, MDW>20.0 may be associated with a higher risk of sepsis during the first 12hrs of hospital admission Monocyte, Absolute 0.7 103/mcL Invalid Interpretation Code 0.2 - 1.0 10^3/mcL AO Workflow SS Monocytes/100 WBC (Bld) 4.5 % Invalid Interpretation Code 1.7 - 13.0 % AO Workflow SS Neutrophil, Absolute 13.3 103/mcL Invalid Interpretation Code 2.9 - 6.2 10^3/mcL AO Workflow SS Neutrophils/100 WBC (Bld) 91.3 % Invalid Interpretation Code 37.0 - 80.0 % AO Workflow SS Platelet mean volume (Bld) [Entitic vol] 7.8 fL Invalid Interpretation Code 7.4 - 10.4 fL AO Workflow SS Platelets (Bld) [#/Vol] 297 103/mcL Invalid Interpretation Code 130 - 400 10^3/mcL AO Workflow SS Potassium [Moles/Vol] 3.4 mmol/L Invalid Interpretation Code 3.5 - 5.1 mmol/L AO ADM SS Protein [Mass/Vol] 8.0 G/dL Invalid Interpretation Code 6.4 - 8.2 G/dL AO ADM SS RBC (Bld) [#/Vol] 5.07 106/mcL Invalid Interpretation Code 4.20 - 5.40 10^6/mcL AO Workflow SS Sodium [Moles/Vol] 140 mmol/L Invalid Interpretation Code 136 - 145 mmol/L AO ADM SS Urea nitrogen [Mass/Vol] 14 mg/dL Invalid Interpretation Code 7 - 18 mg/dL AO ADM SS Urea nitrogen/Creatinine [Mass ratio] 16 ratio Invalid Interpretation Code 7 - 27 ratio AO ADM SS WBC (Bld) [#/Vol] 14.6 103/mcL Invalid Interpretation Code 4.6 - 10.8 10^3/mcL AO Workflow SS LABORATORYOrdered By: Steven Mckeon on 09-22-2023 Appearance (U) Clear (09/22/23 9:32 PM) Invalid Interpretation Code Clear AO Auto Urine SS Bilirubin Ql (U) Small *ABN* (09/22/23 9:32 PM) Invalid Interpretation Code Negative AO Auto Urine SS Color (U) Yellow (09/22/23 9:32 PM) Invalid Interpretation Code AO Auto Urine SS Glucose Test strip (U) [Mass/Vol] Negative Invalid Interpretation Code Negative AO Auto Urine SS HCG ( test) Ql Negative (09/22/23 9:32 PM) Invalid Interpretation Code AO Manual Urine SS Hemoglobin Auto test strip (U) [Mass/Vol] Trace *ABN* (09/22/23 9:32 PM) Invalid Interpretation Code Negative AO Auto Urine SS Ketones Ql (U) 40 mg/dL Invalid Interpretation Code Negative AO Auto Urine SS test (u) int Not detected Invalid Interpretation Code AO Manual Urine SS UA Leuk Est Negative (09/22/23 9:32 PM) Invalid Interpretation Code Negative AO Auto Urine SS UA Nitrite Negative (09/22/23 9:32 PM) Invalid Interpretation Code Negative AO Auto Urine SS UA pH 5.0 (09/22/23 9:32 PM) Invalid Interpretation Code 5.0 - 8.0 AO Auto Urine SS UA Protein Negative Invalid Interpretation Code Negative AO Auto Urine SS UA Spec Grav >=1.030 *ABN* (09/22/23 9:32 PM) Invalid Interpretation Code 1.015-1.025 AO Auto Urine SS UA Specimen Type Clean Catch (09/22/23 9:32 PM) Invalid Interpretation Code AO Auto Urine SS UA Urobilinogen 0.2 E.U./dL Invalid Interpretation Code 0.2-1.0 AO Auto Urine SS LIPon 09-22-2023 Lipase Level 27 U/L Normal 16-77 [facility] ([place]) Comment on above: Performed By: #### P REGU, UAMICAO, UA #### [address] [address] PREGUon 09-22-2023 HCG ( test) Ql (U) Negative Normal [facility] ([place]) Comment on above: Performed By: #### P REGU, UA #### [address] [address] test (u) int Not detected Invalid Interpretation Code [facility] ([place] Comment on above: Performed By: #### P REGU, UA #### [address] [address] UAon 09-22-2023 Color (U) Yellow Normal [facility] ([place] Comment on above: Performed By: #### P REGU, UA #### [place] [address] Glucose (U) [Mass/Vol] Negative Normal Negative [facility] ([place] Comment on above: Performed By: #### P REGU, UA #### [place] [address] Ketones Ql (U) 40 mg/dL Abnormal Negative [facility] ([place] Comment on above: Performed By: #### P REGU, UA #### [place] [address] UA Appear Clear Normal Clear [facility] ([place] Comment on above: Performed By: #### P REGU, UA #### [address] [address] UA Bili Small Abnormal Negative [facility] ([place] Comment on above: Performed By: #### P REGU, UA #### [address] [address] UA Blood Trace Abnormal Negative [facility] ([place] Comment on above: Performed By: #### P REGU, UA #### [place] [address] UA Leuk Est Negative Normal Negative [facility] ([place] Comment on above: Performed By: #### P REGU, UA #### [place] [address] UA Nitrite Negative Normal Negative [facility] ([place] Comment on above: Performed By: #### P REGU, UA #### [place] [address] UA pH 5.0 Normal 5.0 - 8.0 [facility] ([place] Comment on above: Performed By: #### P REGU, UA #### [address] [address] UA Protein Negative Normal Negative [facility]) Comment on above: Performed By: #### P REGU, UA #### [address] [address] UA Spec Grav >=1.030 Abnormal 1.015-1.025 [facility] ([place] Comment on above: Performed By: #### P REGU, UA #### [address] [address] UA Specimen Type Clean Catch Normal [facility]) Comment on above: Performed By: #### P REGU, UA #### [place] [id number] UA Urobilinogen 0.2 E.U./dL Normal 0.2-1.0 [facility]) Comment on above: Performed By: #### P REGU, UA #### [place] [address] .Urinalysis Microscopic (AO) on 09-11-2023 UA RBC LOADED Abnormal None Seen [facility] ([place] Comment on above: Performed By: #### U A, UAMICAO, PREGU #### [address] [address] UA Squam Epithelial 0-5 Abnormal None Seen [facility] ([place]) Comment on above: Performed By: #### U A, UAMICAO, PREGU #### [address] [address] UA WBC None Seen Normal None Seen [facility] ([place] Comment on above: Performed By: #### U A, UAMICAO, PREGU #### [place] [address] LABORATORYOrdered By: Steven Mckeon on 09-11-2023 Appearance (U) Clear (09/11/23 3:40 AM) Invalid Interpretation Code Clear AO Auto Urine SS Bilirubin Ql (U) Negative (09/11/23 3:40 AM) Invalid Interpretation Code Negative AO Auto Urine SS Color (U) Yellow (09/11/23 3:40 AM) Invalid Interpretation Code AO Auto Urine SS Glucose Test strip (U) [Mass/Vol] Negative Invalid Interpretation Code Negative AO Auto Urine SS HCG ( test) Ql Negative (09/11/23 3:40 AM) Invalid Interpretation Code AO Manual Urine SS Hemoglobin Auto test strip (U) [Mass/Vol] Large *ABN* (09/11/23 3:40 AM) Invalid Interpretation Code Negative AO Auto Urine SS Ketones Ql (U) Negative Invalid Interpretation Code Negative AO Auto Urine SS test (u) int Not detected Invalid Interpretation Code AO Manual Urine SS UA Leuk Est Negative (09/11/23 3:40 AM) Invalid Interpretation Code Negative AO Auto Urine SS UA Nitrite Negative (09/11/23 3:40 AM) Invalid Interpretation Code Negative AO Auto Urine SS UA pH 6.0 (09/11/23 3:40 AM) Invalid Interpretation Code 5.0 - 8.0 AO Auto Urine SS UA Protein Trace mg/dL Invalid Interpretation Code Negative AO Auto Urine SS UA RBC LOADED /HPF Invalid Interpretation Code None Seen AO Auto Urine SS UA Spec Grav >=1.030 *ABN* (09/11/23 3:40 AM) Invalid Interpretation Code 1.015-1.025 AO Auto Urine SS UA Specimen Type Clean Catch (09/11/23 3:40 AM) Invalid Interpretation Code AO Auto Urine SS UA Squam Epithelial 0-5 /HPF Invalid Interpretation Code None Seen AO Auto Urine SS UA Urobilinogen 0.2 E.U./dL Invalid Interpretation Code 0.2-1.0 AO Auto Urine SS WBC LM.HPF (Urine sed) [#/Area] None Seen /HPF Invalid Interpretation Code None Seen AO Auto Urine SS PREGUon 09-11-2023 HCG ( test) Ql (U) Negative Normal [facility] ([place] Comment on above: Performed By: #### U APILIMICGIULIANA PREGU #### [address] [address] test (u) int Not detected Invalid Interpretation Code [facility] ([place] Comment on above: Performed By: #### U A UAMICGIULIANA, PREGU #### [place] [address] UAon 09-11-2023 Color (U) Yellow Normal [facility] ([place] Comment on above: Performed By: #### U A, UAMICAO, PREGU #### [place] [address] Glucose (U) [Mass/Vol] Negative Normal Negative [facility] ([place] Comment on above: Performed By: #### U A, UAMICAO, PREGU #### [place] [address] Ketones Ql (U) Negative Normal Negative [facility] ([place] Comment on above: Performed By: #### U A, UAMICAO, PREGU #### [place] [address] UA Appear Clear Normal Clear [facility] [place] Comment on above: Performed By: #### U A, UAMICAO, PREGU #### [place] [address] UA Blood Large Abnormal Negative [facility] ([place] Comment on above: Performed By: #### U A, UAMICAO, PREGU #### [place] [address] UA Leuk Est Negative Normal Negative [facility] ([place] Comment on above: Performed By: #### U A, UAMICAO, PREGU #### [place] [address] UA Nitrite Negative Normal Negative [facility] [place] Comment on above: Performed By: #### U A, UAMICAO, PREGU #### [place] [address] UA pH 6.0 Normal 5.0 - 8.0 [facility] [place] Comment on above: Performed By: #### U A, UAMICAO, PREGU #### [place] [address] UA Protein Trace Normal Negative [facility] ([place] Comment on above: Performed By: #### U A, UAMICAO, PREGU #### [address] [address] UA Spec Grav >=1.030 Abnormal 1.015-1.025 [facility] ([place] Comment on above: Performed By: #### U A, UAMICAO, PREGU #### [address] [address] UA Specimen Type Clean Catch Normal [facility] ([place] Comment on above: Performed By: #### U A, UAMICAO, PREGU #### [address] [address] UA Urobilinogen 0.2 E.U./dL Normal 0.2-1.0 [facility] ([place] Comment on above: Performed By: #### U A, UAMICAO, PREGU #### [address] [address] Urobilinogen (U) [Mass/Vol] Negative Normal Negative [facility] ([place] Comment on above: Performed By: #### U A, UAMICAO, PREGU #### [address] [address] .Auto Diffon 08-09-2023 Basophil, Absolute 0.0 10 3/mcL Normal 0.0-0.2 [facility] ([place]) Comment on above: Performed By: #### P REGU, UAMICAO, UA #### [address] [address] Basophils/100 WBC (Bld) 0.6 % Normal 0.0-2.5 [facility] ([place] Comment on above: Performed By: #### P REGU, UAMICAO, UA #### [address] [address] Eosinophil, Absolute 0.1 10 3/mcL Normal 0.0-0.4 [facility] ([place] Comment on above: Performed By: #### P REGU, UAMICAO, UA #### [address] [address] Eosinophils/100 WBC (Bld) 1.5 % Normal 0.0-7.0 [facility] ([place] Comment on above: Performed By: #### P REGU, UAMICAO, UA #### [address] [address] Lymphocyte, Absolute 2.3 10 3/mcL Normal 0.8-3.9 [facility] ([place] Comment on above: Performed By: #### P REGU, UAMICAO, UA #### [address] [address] Lymphocytes/100 WBC (Bld) 27.2 % Normal 10.0-50.0 [facility] [place] Comment on above: Performed By: #### P REGU, UAMICAO, UA #### [address] [address] Monocyte, Absolute 0.7 10 3/mcL Normal 0.2-1.0 [facility] ([place] Comment on above: Performed By: #### P REGU, UAMICAO, UA #### [address] [address] Monocytes/100 WBC (Bld) 8.4 % Normal 1.7-13.0 [facility] [place] Comment on above: Performed By: #### P REGU, UAMICAO, UA #### [address] [address] Neutrophils/100 WBC (Bld) 62.3 % Normal 37.0-80.0 [facility] [place] Comment on above: Performed By: #### P REGU, UAMICAO, UA #### [address] [address] .GFRon 08-09-2023 GFR Non- 90 ml/min/1.73sqm Normal [facility] ([place] Comment on above: Result Comment: GFR Population mean for , Non- Americans Ages 20-29 = 116 mL/min/1.73 sq.m. Ages 30-39 = 107 mL/min/1.73 sq.m. Ages 40-49 = 99 mL/min/1.73 sq.m. Ages 50-59 = 93 mL/min/1.73 sq.m. Ages 60-69 = 85 mL/min/1.73 sq.m. Ages 70+ = 75 mL/min/1.73 sq.m. Chronic Kidney Disease: Less than 60 mL/min/1.73 square meters End Stage Renal Disease: Less than 15 mL/min/1.73 square meters Performed By: #### P REGU, UAMICAO, UA #### [address] [address] GFR 109 ml/min/1.73sqm Normal [facility] ([place] Comment on above: Result Comment: GFR Population mean for , Non- Americans Ages 20-29 = 116 mL/min/1.73 sq.m. Ages 30-39 = 107 mL/min/1.73 sq.m. Ages 40-49 = 99 mL/min/1.73 sq.m. Ages 50-59 = 93 mL/min/1.73 sq.m. Ages 60-69 = 85 mL/min/1.73 sq.m. Ages 70+ = 75 mL/min/1.73 sq.m. Chronic Kidney Disease: Less than 60 mL/min/1.73 square meters End Stage Renal Disease: Less than 15 mL/min/1.73 square meters Performed By: #### P REGU, UAMICAO, UA #### [address] [address] .NEUABSon 08-09-2023 Neutrophil, Absolute 5.3 10 3/mcL Normal 2.9-6.2 [facility] ([place] Comment on above: Performed By: #### P REGU, UAMICAO, UA #### [address] [address] CBCon 08-09-2023 Erythrocyte distribution width (RBC) [Ratio] 13.5 % Normal 11.5-14.5 [facility] ([place] Comment on above: Performed By: #### P REGU, UAMICAO, UA #### [address] [address] Hematocrit (Bld) [Volume fraction] 39.1 % Normal 37.0-47.0 [facility] ([place] Comment on above: Performed By: #### VARSHA GALVAN UA #### [address] [address] Hgb 13.4 G/dL Normal 12.0-16.0 [facility] ([place] Comment on above: Performed By: #### Ly REGVARSHA Valadez UA #### [address] [address] MCH (RBC) [Entitic mass] 28.1 pg Normal 27.0-31.2 [facility] ([place] Comment on above: Performed By: #### VARSHA GALVAN UA #### [address] [address] MCHC 34.3 G/dL Normal 33.0-37.0 [facility] ([place] Comment on above: Performed By: #### Ly REGVARSHA Valadez UA #### [address] [address] MCV (RBC) [Entitic vol] 82.0 fL Normal 80.0-94.0 [facility] ([place] Comment on above: Performed By: #### VARSHA GALVAN UA #### [address] [address] Platelet 349 10 3/mcL Normal 130-400 [facility] ([place] Comment on above: Performed By: #### P REGVARSHA Valadez UA #### [address] [address] Platelet mean volume (Bld) [Entitic vol] 8.8 fL Normal 7.4-10.4 [facility] ([place] Comment on above: Performed By: #### P REGUPILIMICGIULIANA, UA #### [address] [address] RBC 4.77 10 6/mcL Normal 4.20-5.40 [facility] ([place] Comment on above: Performed By: #### P REGU UAMICAO, UA #### [address] [address] WBC 8.6 10 3/mcL Normal 4.6-10.8 [facility] ([place] Comment on above: Performed By: #### P REGU, UAMICAO, UA #### [address] [address] CMPon 08-09-2023 Albumin Level 4.6 G/dL Normal 3.5-5.0 [facility] ([place] Comment on above: Performed By: #### P REGU, UAMICAO, UA #### [address] [address] Albumin/Globulin [Mass ratio] 1.4 {ratio} Normal 1.1-2.5 [facility] ([place] Comment on above: Performed By: #### P REGU, UAMICAO, UA #### [address] [address] ALP [Catalytic activity/Vol] 95 U/L Normal 40-135 [facility] ([place] Comment on above: Performed By: #### P REGU, UAMICAO, UA #### [address] [address] ALT [Catalytic activity/Vol] 21 U/L Normal 14-59 [facility] ([place] Comment on above: Performed By: #### P REGU, UAMICAO, UA #### [address] [address] AST [Catalytic activity/Vol] 18 U/L Normal 10-40 [facility] ([place] Comment on above: Performed By: #### P REGU, UAMICAO, UA #### [address] [address] Bili Total 0.6 mg/dL Normal 0.2-1.0 [facility] ([place] Comment on above: Result Comment: Use of this assay is not recommended for patients undergoing treatment with eltrombopag due to the potential for falsely elevated results. Performed By: #### P REGU, UAMICAO, UA #### [address] [address] BUN/Creatinine Ratio 10 ratio Normal 7-27 [facility] ([place] Comment on above: Performed By: #### P REGU, UAMICAO, UA #### [address] [address] Calcium [Mass/Vol] 9.3 mg/dL Normal 8.4-10.2 [facility] ([place]) Comment on above: Performed By: #### P REGU, UAMICAO, UA #### [address] [address] Chloride [Moles/Vol] 101 mmol/L Normal 98-107 [facility] ([place] Comment on above: Performed By: #### P REGU, UAMICAO, UA #### [place] [address] CO2 [Moles/Vol] 28 mmol/L Normal 22-29 [facility] ([place] Comment on above: Performed By: #### P REGU, UAMICAO, UA #### [address] [address] Creatinine [Mass/Vol] 0.82 mg/dL Normal 0.55-1.02 [facility] ([place] Comment on above: Performed By: #### P REGU, UAMICAO, UA #### [address] [address] Electrolyte Balance 16.0 mEq/L High 4.0-15.0 [facility] ([place]) Comment on above: Performed By: #### P REGU, UAMICAO, UA #### [address] [address] Globulin 3.3 G/dL Normal [facility] ([place] Comment on above: Performed By: #### P REGU, UAMICAO, UA #### [address] [address] Glucose [Mass/Vol] 91 mg/dL Normal 70-105 [facility] ([place] Comment on above: Performed By: #### P REGU, UAMICAO, UA #### [address] [address] Potassium [Moles/Vol] 3.9 mmol/L Normal 3.5-5.1 [facility] ([place] Comment on above: Performed By: #### P REGU, UAMICAO, UA #### [address] [address] Sodium [Moles/Vol] 145 mmol/L Normal 136-145 [facility] ([place] Comment on above: Performed By: #### P REGU, UAMICAO, UA #### [address] [address] Total Protein 7.9 G/dL Normal 6.4-8.2 [facility] ([place] Comment on above: Performed By: #### P REGU, UAMICAO, UA #### [address] [address] Urea nitrogen [Mass/Vol] 8 mg/dL Normal 7-18 [facility] ([place] Comment on above: Performed By: #### P REGU, UAMICAO, UA #### [address] [address] FEon 08-09-2023 Iron [Mass/Vol] 72 ug/dL Normal 50-170 [facility] ([place] Comment on above: Performed By: #### P REGU, UAMICAO, UA #### [address] [address] Jessica 08-09-2023 Ferritin [Mass/Vol] 31.0 ng/mL Normal 8.0-252.0 [facility] ([place]) Comment on above: Performed By: #### P REGU, UAMICAO, UA #### [address] [address] FT4on 08-09-2023 Free T4 [Mass/Vol] 0.79 ng/dL Normal 0.76-1.46 [facility] ([place] Comment on above: Performed By: #### P REGU, UAMICAO, UA #### [place] [id number] [place] [address] LABORATORYOrdered By: SYSTEM SYSTEM on 08-09-2023 Albumin BCP dye [Mass/Vol] 4.6 G/dL Invalid Interpretation Code 3.5 - 5.0 G/dL AO ADM SS Albumin/Globulin [Mass ratio] 1.4 {ratio} Invalid Interpretation Code 1.1 - 2.5 ratio AO ADM SS ALP [Catalytic activity/Vol] 95 U/L Invalid Interpretation Code 40 - 135 U/L AO ADM SS ALT With P-5'-P [Catalytic activity/Vol] 21 U/L Invalid Interpretation Code 14 - 59 U/L AO ADM SS AST With P-5'-P [Catalytic activity/Vol] 18 U/L Invalid Interpretation Code 10 - 40 U/L AO ADM SS Basophil, Absolute 0.0 103/mcL Invalid Interpretation Code 0.0 - 0.2 10^3/mcL AO Workflow SS Basophils/100 WBC (Bld) 0.6 % Invalid Interpretation Code 0.0 - 2.5 % AO Workflow SS Bilirubin [Mass/Vol] 0.6 mg/dL Invalid Interpretation Code 0.2 - 1.0 mg/dL AO ADM SS Comment on above: Interpretive Data: U se of this assay is not recommended for patients undergoing treatment with eltrombopag due to the potential for falsely elevated results. Calcium [Mass/Vol] 9.3 mg/dL Invalid Interpretation Code 8.4 - 10.2 mg/dL AO ADM SS Chloride [Moles/Vol] 101 mmol/L Invalid Interpretation Code 98 - 107 mmol/L AO ADM SS CO2 [Moles/Vol] 28 mmol/L Invalid Interpretation Code 22 - 29 mmol/L AO ADM SS Creatinine [Mass/Vol] 0.82 mg/dL Invalid Interpretation Code 0.55 - 1.02 mg/dL AO ADM SS Electrolyte Balance 16.0 mEq/L Invalid Interpretation Code 4.0 - 15.0 mEq/L AO ADM SS Eosinophil, Absolute 0.1 103/mcL Invalid Interpretation Code 0.0 - 0.4 10^3/mcL AO Workflow SS Eosinophils/100 WBC (Bld) 1.5 % Invalid Interpretation Code 0.0 - 7.0 % AO Workflow SS Erythrocyte distribution width (RBC) [Ratio] 13.5 % Invalid Interpretation Code 11.5 - 14.5 % AO Workflow SS Ferritin [Mass/Vol] 31.0 ng/mL Invalid Interpretation Code 8.0 - 252.0 ng/mL AO ADM SS Free T4 [Mass/Vol] 0.79 ng/dL Invalid Interpretation Code 0.76 - 1.46 ng/dL AO ADM SS GFR/1.73 sq M.predicted among blacks MDRD (S/P/Bld) [Vol rate/Area] 109 ml/min/1.73sqm Invalid Interpretation Code AO Chemistry S Comment on above: Interpretive Data: GFR Population mean for , Non- Americans Ages 20-29 = 116 mL/min/1.73 sq.m. Ages 30-39 = 107 mL/min/1.73 sq.m. Ages 40-49 = 99 mL/min/1.73 sq.m. Ages 50-59 = 93 mL/min/1.73 sq.m. Ages 60-69 = 85 mL/min/1.73 sq.m. Ages 70+ = 75 mL/min/1.73 sq.m. Chronic Kidney Disease: Less than 60 mL/min/1.73 square meters End Stage Renal Disease: Less than 15 mL/min/1.73 square meters GFR/1.73 sq M.predicted among non-blacks MDRD (S/P/Bld) [Vol rate/Area] 90 ml/min/1.73sqm Invalid Interpretation Code AO Chemistry S Comment on above: Interpretive Data: GFR Population mean for , Non- Americans Ages 20-29 = 116 mL/min/1.73 sq.m. Ages 30-39 = 107 mL/min/1.73 sq.m. Ages 40-49 = 99 mL/min/1.73 sq.m. Ages 50-59 = 93 mL/min/1.73 sq.m. Ages 60-69 = 85 mL/min/1.73 sq.m. Ages 70+ = 75 mL/min/1.73 sq.m. Chronic Kidney Disease: Less than 60 mL/min/1.73 square meters End Stage Renal Disease: Less than 15 mL/min/1.73 square meters Globulin 3.3 G/dL Invalid Interpretation Code AO ADM SS Glucose [Mass/Vol] 91 mg/dL Invalid Interpretation Code 70 - 105 mg/dL AO ADM SS Hematocrit (Bld) [Volume fraction] 39.1 % Invalid Interpretation Code 37.0 - 47.0 % AO Workflow SS Hemoglobin (Bld) [Mass/Vol] 13.4 G/dL Invalid Interpretation Code 12.0 - 16.0 G/dL AO Workflow SS Iron [Mass/Vol] 72 ug/dL Invalid Interpretation Code 50 - 170 mcg/dL AO ADM SS Lymphocyte, Absolute 2.3 103/mcL Invalid Interpretation Code 0.8 - 3.9 10^3/mcL AO Workflow SS Lymphocytes/100 WBC (Bld) 27.2 % Invalid Interpretation Code 10.0 - 50.0 % AO Workflow SS MCH (RBC) [Entitic mass] 28.1 pg Invalid Interpretation Code 27.0 - 31.2 pg AO Workflow SS MCHC 34.3 G/dL Invalid Interpretation Code 33.0 - 37.0 G/dL AO Workflow SS MCV (RBC) [Entitic vol] 82.0 fL Invalid Interpretation Code 80.0 - 94.0 fL AO Workflow SS Monocyte, Absolute 0.7 103/mcL Invalid Interpretation Code 0.2 - 1.0 10^3/mcL AO Workflow SS Monocytes/100 WBC (Bld) 8.4 % Invalid Interpretation Code 1.7 - 13.0 % AO Workflow SS Neutrophil, Absolute 5.3 103/mcL Invalid Interpretation Code 2.9 - 6.2 10^3/mcL AO Workflow SS Neutrophils/100 WBC (Bld) 62.3 % Invalid Interpretation Code 37.0 - 80.0 % AO Workflow SS Platelet mean volume (Bld) [Entitic vol] 8.8 fL Invalid Interpretation Code 7.4 - 10.4 fL AO Workflow SS Platelets (Bld) [#/Vol] 349 103/mcL Invalid Interpretation Code 130 - 400 10^3/mcL AO Workflow SS Potassium [Moles/Vol] 3.9 mmol/L Invalid Interpretation Code 3.5 - 5.1 mmol/L AO ADM SS Protein [Mass/Vol] 7.9 G/dL Invalid Interpretation Code 6.4 - 8.2 G/dL AO ADM SS RBC (Bld) [#/Vol] 4.77 106/mcL Invalid Interpretation Code 4.20 - 5.40 10^6/mcL AO Workflow SS Sodium [Moles/Vol] 145 mmol/L Invalid Interpretation Code 136 - 145 mmol/L AO ADM SS TSH Qn 1.06 m[IU]/L Invalid Interpretation Code 0.36 - 3.74 mcIU/mL AO ADM SS Urea nitrogen [Mass/Vol] 8 mg/dL Invalid Interpretation Code 7 - 18 mg/dL AO ADM SS Urea nitrogen/Creatinine [Mass ratio] 10 ratio Invalid Interpretation Code 7 - 27 ratio AO ADM SS WBC (Bld) [#/Vol] 8.6 103/mcL Invalid Interpretation Code 4.6 - 10.8 10^3/mcL AO Workflow SS LABORATORYOrdered By: Bobbi Simon on 08-09-2023 Cholesterol [Mass/Vol] 189 mg/dL Invalid Interpretation Code 0 - 200 mg/dL AO ADM SS Comment on above: Interpretive Data: C holesterol Reference Interval: Less than 200 Desirable 200-239 Borderline high risk 240 and above High risk Cholesterol in HDL [Mass/Vol] 60 mg/dL Invalid Interpretation Code 40 - 60 mg/dL AO ADM SS Cholesterol in LDL [Mass/Vol] 114 mg/dL Invalid Interpretation Code 0 - 130 mg/dL AO ADM SS Triglyceride [Mass/Vol] 76 mg/dL Invalid Interpretation Code 0 - 150 mg/dL AO ADM SS Comment on above: Interpretive Data: T riglyceride Reference Interval: Less than 150 Normal 150-199 Borderline high risk 200-499 High risk 500 or higher Very high risk LIPIDon 08-09-2023 Cholesterol [Mass/Vol] 189 mg/dL Normal 0-200 [facility] [place] ([place]) Comment on above: Result Comment: Chol esterol Reference Interval: Less than 200 Desirable 200-239 Borderline high risk 240 and above High risk Performed By: #### P REGU, UAMICAO, UA #### [address] [address] Cholesterol in HDL [Mass/Vol] 60 mg/dL Normal 40-60 [facility] ([place]) Comment on above: Performed By: #### P REGU, UAMICAO, UA #### [address] [address] Cholesterol in LDL [Mass/Vol] 114 mg/dL Normal 0-130 [facility] ([place]) Comment on above: Performed By: #### P REGU, UAMICAO, UA #### [address] [address] Triglyceride [Mass/Vol] 76 mg/dL Normal 0-150 [facility] ([place]) Comment on above: Result Comment: Trig lyceride Reference Interval: Less than 150 Normal 150-199 Borderline high risk 200-499 High risk 500 or higher Very high risk Performed By: #### P REGU, UAMICAO, UA #### [facility] [address], [place] [address] TSHon 08-09-2023 TSH Qn 1.06 m[IU]/L Normal 0.36-3.74 [facility] ([place]) Comment on above: Performed By: #### P REGU, UAMICAO, UA #### [facility] [address], [place] [address] LABORATORYOrdered By: Bobbi Simon on 09-11-2022 HCG ( test) Ql Negative (09/11/22 11:44 PM) Invalid Interpretation Code AO Manual Urine SS test (u) int Not detected Invalid Interpretation Code AO Manual Urine SS No Panel Informationon 09-10 Culture Urine <10,000 cfu/ml. No Significant growth. Sensitivity not indicated. [facility] Work Phone: No Panel Informationon 09-08 Shiga Toxins 1 and 2 Shiga toxin 1 present Presence of Shiga toxin 1 Absence of Shiga toxin 2 Shiga toxin 1 produced by E. coli and the toxin produced by Shigella dysenteriae type 1 strains are nearly identical. Therefore, this positive toxin result may be due to S.dysenteriae type 1 strains. This organism causes a reportable disease. Infection Control has been notified. Specimen sent to [facility] for confirmatory testing. [facility] Work Phone: Comment on above: Testing performed by immunochromatography. LABORATORYOrdered By: Bobbi Simon on 09-07-2022 C. difficile toxin A+B tcdA+tcdB genes AJAY+probe Ql (Stl) Negative (09/07/22 6:10 PM) Invalid Interpretation Code Negative AO Auto Urine SS Clostridium difficile toxin A/B PCR Int Eliseo C. difficile Negative result does not rule out the possibility of infection with toxigenic C. difficile. Eliseo C. difficile Assay results should not be used as the sole basis for diagnosis, treatment, or patient management decisions and should be interpreted in conjunction with other clinical and laboratory findings. Invalid Interpretation Code AO Auto Urine SS No Panel Informationon 09-07 Culture Stool/Yersinia Normal stool carlos present. Salmonella: Negative Shigella: Negative Campylobacter: Negative Yersinia: Negative [facility] Work Phone: Comment on above: Requests for alterna tive pathogens including C. difficile toxin, E. coli 0157 Rotavirus, Giardia and parasites require specific requests. LABORATORYOrdered By: Bobbi Simon on 09-06-2022 Calcium [Mass/Vol] 9.2 mg/dL Invalid Interpretation Code 8.4 - 10.2 mg/dL AO ADM SS Chloride [Moles/Vol] 99 mmol/L Invalid Interpretation Code 98 - 107 mmol/L AO ADM SS CO2 [Moles/Vol] 26 mmol/L Invalid Interpretation Code 22 - 29 mmol/L AO ADM SS Creatinine [Mass/Vol] 0.89 mg/dL Invalid Interpretation Code 0.55 - 1.02 mg/dL AO ADM SS Electrolyte Balance 12.0 mEq/L Invalid Interpretation Code 4.0 - 15.0 mEq/L AO ADM SS Glucose [Mass/Vol] 78 mg/dL Invalid Interpretation Code 70 - 105 mg/dL AO ADM SS Potassium [Moles/Vol] 3.9 mmol/L Invalid Interpretation Code 3.5 - 5.1 mmol/L AO ADM SS Sodium [Moles/Vol] 137 mmol/L Invalid Interpretation Code 136 - 145 mmol/L AO ADM SS Urea nitrogen [Mass/Vol] 14 mg/dL Invalid Interpretation Code 7 - 18 mg/dL AO ADM SS Urea nitrogen/Creatinine [Mass ratio] 16 ratio Invalid Interpretation Code 7 - 27 ratio AO ADM SS LABORATORYOrdered By: SYSTEM SYSTEM on 09-06-2022 GFR 99 ml/min/1.73sqm Invalid Interpretation Code AO Chemistry S GFR Non- 82 ml/min/1.73sqm Invalid Interpretation Code AO Chemistry S Basophil percentageon 2021 Bilirubin [Mass/Vol] 0.50 mg/dL 0.20-1.00 [facility] Work Phone: Comment on above: For patients on eltr ombopag therapy, use of Dimension [place] TBIL is not recommended. Chloride [Moles/Vol] 108 mmol/L 98-107 [facility] Work Phone: Glucose [Mass/Vol] 94 mg/dL 74-106 [facility] Work Phone: Potassium [Moles/Vol] 3.8 mmol/L 3.5-5.1 [facility] Work Phone: Protein [Mass/Vol] 7.3 g/dL 6.4-8.2 [facility] Work Phone: Sodium [Moles/Vol] 138 mmol/L 136-145 [facility] Work Phone: WBC (Bld) [#/Vol] 6.2 10*3/uL 4.5-13.0 [facility] Work Phone: Blood erythrocytes count (nu mber/volume)on 04-13-2022 RBC (Bld) [#/Vol] 4.58 10*6/uL 4.1-4.8 [facility] Work Phone: Blood hemoglobin measurement (mass/volume)on 04-13-2022 Hemoglobin (Bld) [Mass/Vol] 11.7 g/dL 12.0-15.0 [facility] Work Phone: Blood platelet mean volumeon 04-13-2022 Platelet mean volume (Bld) [Entitic vol] 11.6 fL 6.2-12.0 [facility] Work Phone: Determination of erythrocyte mean corpuscular volume (MCV)on 04-13-2022 MCV (RBC) [Entitic vol] 79.5 fL 78-96 [facility] Work Phone: Hematocrit Auto (Bld) [Volum e fraction]on 04-13-2022 Hematocrit (Bld) [Volume fraction] 36.4 % 37-46 [facility] Work Phone: Iron measurement (mass/mass) on 04-13-2022 Iron (Unsp spec) [Mass/Mass] 38 ug/dL 50-170 [facility] Work Phone: Laboratory - Chemistry and C hemistry - challengeon 04-13-2022 ALP [Catalytic activity/Vol] 109 U/L 47-119 [facility] Work Phone: ALT [Catalytic activity/Vol] 21 U/L 13-56 [facility] Work Phone: CO2 [Moles/Vol] 25.0 mmol/L 21.0-32.0 [facility] Work Phone: Globulin (S) [Mass/Vol] 3.5 g/dL 2.2-4.2 [facility] Work Phone: Urea nitrogen/Creatinine [Mass ratio] 12.0 mg/mg 10-20 [facility] Work Phone: Laboratory - Hematology and Cell countson 04-13-2022 Erythrocyte distribution width (RBC) [Entitic vol] 40.6 fL 35.1-43.9 [facility] Work Phone: Erythrocyte distribution width (RBC) [Ratio] 14.0 % 11.6-14.6 [facility] Work Phone: MCH (RBC) [Entitic mass] 25.5 pg 25.0-35.0 [facility] Work Phone: MCHC Auto (RBC) [Mass/Vol]on 04-13-2022 MCHC (RBC) [Mass/Vol] 32.1 g/dL 32-36 [facility] Work Phone: No Panel Informationon 04-13 D-Dimer Quantitative (PE/DVT) < 0.27 FEU/ug/m 0.27-0.49 [facility] Work Phone: Comment on above: NORMAL D-Dimer level (<0.50) indicates no DVT or PE. Estimated GFR (MDRD) Amer 114 mL/min >60 [facility] Work Phone: Comment on above: GFR Calc Estimated GFR (MDRD) Non-Af Amer 94 mL/min >60 [facility] Work Phone: [phone] Comment on above: Non- GFR Calc Thyroid Stimulating Hormone (TSH) 1.82 uIU/mL 0.358-3.74 [facility] Work Phone: Platelets bldon 04-13-2022 Platelets (Bld) [#/Vol] 312 10*3/uL 150-450 [facility] Work Phone: Serum or plasma albumin markos urement (mass/volume)on 04-13-2022 Albumin [Mass/Vol] 3.8 g/dL 3.2-5.0 [facility] Work Phone: Serum or plasma albumin/glob ulin mass ratioon 04-13-2022 Albumin/Globulin [Mass ratio] 1.1 {ratio} 0.9-2.4 [facility] Work Phone: Serum or plasma calcium markos urement (mass/volume)on 04-13-2022 Calcium [Mass/Vol] 8.8 mg/dL 8.5-10.1 [facility] Work Phone: Serum or plasma creatinine m easurement (mass/volume)on 04-13-2022 Creatinine [Mass/Vol] 0.83 mg/dL 0.55-1.02 [facility] Work Phone: Comment on above: The validity of the calculated GFR & GFRAA in patients over 70 years has not been determined. Clinical correlation is essential. Serum or plasma ferritin sam surement (mass/volume)on 04-13-2022 Ferritin [Mass/Vol] 10 ng/mL 8- [facility] Work Phone: Serum or plasma urea nitroge n measurement (mass/volume)on 04-13-2022 Urea nitrogen [Mass/Vol] 10 mg/dL 7-18 [facility] Work Phone: Thin prep Papanicolaou smear with manual screeningon 04-13-2022 Thin prep Papanicolaou smear with manual screening 24 U/L 15-37 [facility] Work Phone: Thin prep Papanicolaou smear with manual screening 5 5-15 [facility] Work Phone: LABORATORYOrdered By: Nissa Tan on 01-05-2022 C. trachomatis DNA AJAY+probe Ql (Unsp spec) Negative (01/05/22 2:31 PM) Invalid Interpretation Code Negative AH Auto Viro/Sero SS C. trachomatis Interp C. trachomatis DNA not detected. Specimen is presumptive negative forC. trachomatis.A negative result does not preclude C. trachomatis infection becauseresults depend on adequate specimen collection, absence of inhibitors,and sufficient DNA to be detected. Invalid Interpretation Code See CT Interp N AH Auto Viro/Sero SS N. gonorrhoeae DNA AJAY+probe Ql (Unsp spec) Negative (01/05/22 2:31 PM) Invalid Interpretation Code Negative AH Auto Viro/Sero SS N. gonorrhoeae Interp N. gonorrhoeae DNA not detected. Specimen is presumptive negative forN. gonorrhoeae. A negative result does not preclude Neisseria gonorrhoeaeinfection because results depend on adequate specimen collection, absenceof inhibitors, and sufficient DNA to be detected. Invalid Interpretation Code See NG Interp N Auto Viro/Sero SS Laboratory - Specimen inform ationOrdered By: Nissa Tan on 01-05-2022 Specimen source Nom (Unsp spec) Urine (01/05/22 2:31 PM) Invalid Interpretation Code AH Auto Viro/Sero SS Progress Noteon 11-30-2018 [employer] Authentication Interface Message Text Elsa Corbin Liban is here for new office visit for: Abdominal PainHistory of Present IllnessAbdominal Pain13 year old with abdominal pain, nausea and pain after eating. Will vomit attimes, however not recently. Decreased appetite. This has been going on forgreater than 9 months. No precipitating event, has gotten worse over time.Pain was 8/10, sharp pain. Stops her from what she is doing. Nausea is presentmost of the time too, and worse after eating. Has some slowing of food in chestonce weekly. Less often now. No choking or gagging.No extraintestinal symptoms, specifically no mouth ulcers, no joint pain, noacholic stools, no easy bruising/bleeding, no jaundice and no fevers of unknowncause. No weight loss.Has 1 bowel movements per day. They are soft, easy to pass without any pain,blood, or mucous. No stool or urine accidents. No dysuria or hematuria. Loosestools at times, once weekly.Good appetite and eats well, decreased lately.Omeprazole did not help, took this for 3 weeks, and didn't help.Geoffrey mckeon had an UGI- reportedly normalDrinks a lot of water. No juices or sodas.Lost 10 lbs since initial visit because feels she is not working out and eatingsmaller volumes of food, which has helped her.Normal labs and stools, including calprotectin. Normal EGD/ColonStresses now some chest pain. Alternating stool with hard. She has a typical IBSpattern.Past Medical HistoryHistory reviewed. No pertinent past medical history.Past Surgical HistoryPast Surgical History:Procedure Laterality Date ESOPHAGOSCOPY N/A 09/11/2018 ENDOSCOPY (UPPER AND COLONOSCOPY) performed by Khang Cortes MD at [facility] Known AllergiesMedicationsOutpatie nt Encounter Medications as of 11/30/2018Medication Sig Dispense Refill Bisacodyl (DULCOLAX PO) Take by mouth Polyethylene Glycol 3350 (MIRALAX PO) Take by mouth amoxicillin-clavulanate (AUGMENTIN) 400-57 MG/5ML oral suspension Take 8 ml 2times per day for 10 days 0No facility-administered encounter medications on file as of 11/30/2018.Family Medical HistoryFamily HistoryProblem Relation Age of Onset Asthma Mother Irritable Bowel Syndrome Mother Anesth Problems Mother muscle relaxant worked longer than [place] Gallbladder Disease Maternal Grandmother Bleeding Prob Neg Hx Cancer Neg Hx Colon Cancer Neg Hx Celiac Disease Neg Hx Colon Polyps Neg Hx Crohn's Disease Neg Hx Cystic Fibrosis Neg Hx Eosinophilic Esophagitis Neg Hx Hirschsprung's disease Neg Hx Kidney Disease Neg Hx Liver Disease Neg Hx Pancreatic Disease Neg Hx Stomach Ulcer(s) Neg Hx Thyroid Disease Neg Hx Ulcerative Colitis Neg HxSocial HistorySocial HistorySocioeconomic History Marital status: Single Spouse name: None Number of children: None Years of education: None Highest education level: NoneSocial Needs Financial resource strain: None Food insecurity - worry: None Food insecurity - inability: None Transportation needs - medical: None Transportation needs - non-medical: NoneOccupational History NoneTobacco Use Smoking status: Passive Smoke Exposure - Never Smoker Smokeless tobacco: Never UsedSubstance and Sexual Activity Alcohol use: No Drug use: No Sexual activity: NoneOther Topics Concern NoneSocial History Narrative NoneDietSocial History Who lives in the household? mom, sister Are there pets in the home? Yes Water source for child? Bottled water Has the patient ever been hospitalized? Yes Alternative meds, herbals, OTC meds and vitamins documented in medicationsection? NoReview of SystemsReview of SystemsConstitutional: Negative for recurrent fevers, weight loss, weight gain andmalaise/fatigue.HENT: Positive for ear infections and trouble swallowing (at times). Negativefor sinus problems, mouth sores, sore throat, dental problems and hearingproblems.Eyes: Positive for wears glasses.Respiratory: Negative for wheezing and pneumonia.Cardiovascular: Positive for chest pain (at times). Negative for heart murmurand heart problems.Gastrointestinal: Positive for vomiting, heartburn, trouble swallowing (attimes), abdominal pain and nausea. Negative for constipation, soilingunderpants, blood in stool and liver problems.Genitourinary: Negative for kidney problems (UTI as youngster).Neurological: Positive for headaches and dizziness. Negative for developmentaldelays, seizures and fainting.Musculoskeletal: Negative.Skin: Negative for rash.Allergy/Immune: allergic/immunologic negativeHematology: Negative.Physical ExaminationVitals: 11/30/18 0957BP: 106/66Pulse: 68BP Readings from Last 2 Encounters:11/30/18 106/66 (44 %, Z = -0.15 / 55 %, Z = 0.12)*09/11/18 106/68 (45 %, Z = -0.13 / 65 %, Z = 0.39)BP percentiles are based on the June 2017 AAP Clinical Practice Guideline forgirlsWeight - Scale: 53.1 kgHeight: 157.5 cmBody mass index is 21.41 kg/m .Physical ExamConstitutional: She appears well-developed. She is active.HENT:Nose: Her nose is normal. No nasal discharge.Mouth/Throat: Her mucous membranes are moist. Dentition is normal. Heroropharynx is clear.Eyes: Her EOM are normal. Right eye exhibits no discharge. Left eye exhibits nodischarge.Neck: Her neck is supple. Theres is no no neck adenopathy.Cardiovascular: No murmur heard.Pulmonary/Chest: Effort normal and breath sounds normal.Abdominal: Her abdomen is soft. She exhibits no distension. Bowel sounds arenormal. There is tenderness in the left lower quadrant. There is no CVAtenderness present.She displays no rebound and no rigidity in her abdomen.There is no hepatosplenomegaly.Neurologi liliane: She is alert.Skin: Skin is warm. Capillary refill takes less than 3 seconds. No pallor.Lab ResultsNone 39 year old with abdominal pain, especially after eating. Better yet withalternating hard and loose stools.Dyspepsia/IBSNormal labs and stoolsPlanPatient InstructionsIBS1. Bentyl 20 mg twice daily as needed for pain and cramp2. Your child requires 20 grams of fiber per day. Start slow and work up to thisgoal. It is important to drink much water/fluids while increasing fiber, waterand fiber work well together. Please refer to list of foods. Some seasonalfruits that are helpful include watermelon, blueberries, grapes, pears andmelons.3. Can use Immodium for loose stool.4. TUMS for chest pain5. Watch to make sure you eat enough6. Follow up on the liver ultrasound studyThank you for allowing our participation [facility]. Please feel free tocall should you have questions or concerns.Kind Regards,Jil Underwood, [facility] HEALTH HOSPITALPediatric Nurse PractitionerPediatric [phone] Index SpanishFiber in the Diet KEY POINTS Fiber helps keep food moving through the digestive system and softens bowelmovements. Your child should have at least 14 grams (g) of fiber for every 1000 caloriesthat he eats every day. Breads, cereals, and pasta made with whole-grain flour, brown and wild rice,oats, bulgur, and quinoa are high-fiber foods. When increasing the fiber in your child s diet, it is best to do so slowly.Eating too much fiber too quickly can cause discomfort, gas, and bloating. Wha t is fiber?Dietary fiber is the part of plants that cannot be digested. There are 2 kindsof dietary fiber: Insoluble fiber adds bulk to keep foods moving through the digestive system. Soluble fiber holds water that helps soften the stool for easy bowelmovements.If your child does not have enough fiber in his diet, he may have constipationor bowel movements that are small, hard, and dry.Fiber is an important part of the diet even though it passes through the body. Ahigh-fiber diet can: Lower cholesterol levels. Help your child have regular bowel movements. Improve blood glucose level if your child has diabetes. Help your child lose weight. High-fiber foods are usually lower in caloriesand provide a feeling of fullness.Breads, cereals, and pasta made with whole-grain flour, brown and wild rice,oats, bulgur, and quinoa are high-fiber foods. Breakfast cereals and most grainproducts list the fiber content on the label so you can know which products arehigh in fiber.Dried beans, peas, nuts, seeds, vegetables, and fresh or dried fruits are merle sources of fiber.How much fiber does my child need?Your child should have at least 14 grams (g) of fiber for every 1000 caloriesthat he eats every day. Read the label on food packages to find out how muchfiber a serving of a food provides. Foods containing more than 20% of the dailyvalue of fiber per serving are considered high in fiber.How can I add fiber to my child s diet?When increasing the fiber in your child s diet, it is best to do so slowly.Eating too much fiber too quickly can cause discomfort, gas, and bloating. Startwith small changes, like switching to whole-grain bread, and add a new source offiber each week or two. Start the day with a high-fiber breakfast cereal. Encourage your child to eat more fruits and vegetables. Use carrot sticks orapple slices for snacks. Include fruits or vegetables with every meal. Cookedfiber is just as good as raw fiber. Serve whole-grain breads. Add whole grains, dried beans, and vegetables to casseroles. Serve fruit-based desserts. If your child has constipation even though you have added high-fiber foods toyour child s diet, make sure your child is drinking enough fluids. Talk to yourhealthcare provider if constipation continues.Adding fiber to your diet is easy, and a high-fiber diet can provide long-termhealth benefits. Your child may have some gas or bloating at first, but his bodywill usually adjust in time.Developed by [employer].Pediatric Advisor 2018.1 published by [employer].Last modified: 7349-15-45Gcsz reviewed: 2944-63-61Nlvh content is reviewed periodically and is subject to change as new healthinformation becomes available. The information is intended to inform and educateand is not a replacement for medical evaluation, advice, diagnosis or treatmentby a healthcare professional.ReferencesPedia tric Advisor 2018.1 Index 2018 [employer] and/or one of its subsidiariesIndex SpanishPediatric Advisor 2018.1 published by [employer].Last reviewed: 0234-44-82Yvodg SpanishDiabetes: Healthy Snacks KEY POINTS Snacks can help to prevent low blood glucose. The best choices for snacks are foods that are high in protein, high in fiber,and low in saturated fat. It helps to work with a dietitian to help make good food choices. Is it OK to include snacks in my child s diabetic meal plan?The need for snacks depends on your child s blood glucose control and how manycalories your child needs to eat per day. Active children and teens with highenergy needs usually need to add snacks.Snacks can help to prevent low blood glucose. You may want to include snacks inyour child s meal plan because: Snacks can help balance the food your child eats with the medicines your childtakes. Eating smaller meals and having snacks with protein may help your child avoidhunger and overeating. Your child needs to spread the carbohydrates that he eats more evenlythroughout the day to help decrease spikes in blood glucose after meals. Your child exercises and wants to prevent a drop in his blood glucose.Which foods are good snacks?Different types of snacks have different effects. The best choices for snacksare foods: Low in saturated fat, such as lean meats, or low or fat-free milk products High in fiber, such as fruits, vegetables, nuts, or whole grain foodsSnacks that are high in protein and fiber may satisfy hunger longer. Sugar fromfruit will last 1 or 2 hours, so fruit is good for a morning or afternoon snack.Carbohydrates (carbs) eaten with proteins, such as low-fat cheese or lean meat,change to sugar more slowly.Bedtime snacks are important for blood glucose control for children withdiabetes who use insulin. A snack that includes carbohydrate and protein helpsto keep up your child's blood glucose level through the night. A typical bedtimesnack should include 15 grams of carbohydrate and 7 to 8 grams of protein. Thisamount can change based on your child's age, blood glucose levels, and activitythroughout the day.Milk and yogurt are a natural mix of carbohydrate and protein and make a goodbedtime snack choice.If your child is still hungry after a snack, try low calorie foods like avegetable tray using cold crunchy vegetables and a fat-free dressing for a dip.Help your child avoid mindless snacking while watching TV, driving, reading, orworking at the computer.For more information, contact [employer] [phone]: //www.diabetes.orgDeveloped by [employer].Pediatric Advisor 2018.1 published by [employer].Last modified: 3860-19-01Tudi reviewed: 1690-56-93Teyw content is reviewed periodically and is subject to change as new healthinformation becomes available. The information is intended to inform and educateand is not a replacement for medical evaluation, advice, diagnosis or treatmentby a healthcare professional.Aaronia tric Advisor 2018.1 Index 2018 [employer] and/or one of its subsidiaries [facility] Surgical Pathology Teston Surgical Pathology Test SEE BELOW [facility] Comment on above: Result Comment: JESSICA Johnson DIAGNOSIS:A. Squamous esophageal mucosa, no diagnostic abnormality.B. Squamous esophageal mucosa, no diagnostic abnormality.C. Gastric mucosa, no diagnostic abnormality.D. Duodenal mucosa, no diagnostic abnormality.E. Small bowel mucosa, no diagnostic abnormality.F. Colonic mucosa, no diagnostic abnormality.G. Colonic mucosa, no diagnostic abnormality.H. Colonic mucosa, no diagnostic abnormality.I. Colonic mucosa, no diagnostic abnormality.SPECIMEN:A. ESOPHAGEAL BIOPSY- PROXIMAL B. ESOPHAGEAL BIOPSY- DISTAL C. STOMACH, BIOPSY D. BOWEL, BIOPSY- SMALL BOWEL E. BOWEL, BIOPSY- TERMINAL ILEUM F. BOWEL, BIOPSY- CECUM G. BOWEL, BIOPSY- RIGHT COLON H. BOWEL, BIOPSY- LEFT COLON I. BOWEL, BIOPSY- RECTOSIGMOIDDATE OF SURGERY: 09/11/2018CLINICAL INFORMATION: Abdominal pain, generalizedGROSS DESCRIPTION: Nine biopsies are submitted fixed as follows:A. Proximal esophagus. Received in formalin are two white mucosalfragments measuring 0.5 x 0.2 x 0.1 cm.B. Distal esophagus. Received in formalin are two white mucosalfragments measuring 0.5 x 0.1 x 0.1 cm.C. Stomach. Received in formalin are two white mucosal fragmentsmeasuring 0.5 x 0.2 x 0.1 cm.D. Small bowel. Received in formalin are two rich mucosal fragmentsmeasuring 0.4 x 0.2 x 0.1 cm.E. Terminal ileum. Received in formalin are two rich mucosal fragmentsmeasuring 0.5 x 0.2 x 0.1 cm.F. Cecum. Received in formalin is a rich mucosal fragment measuring 0.2x 0.2 x 0.1 cm.G. Right colon. Received in formalin is a rich mucosal fragmentmeasuring 0.3 x 0.2 x 0.1 cm.H. Left colon. Received in formalin is a white mucosal fragmentmeasuring 0.2 x 0.2 x 0.1 cm.I. Rectosigmoid. Received in formalin are two rich mucosal fragmentsmeasuring 0.5 x 0.2 x 0.1 cm.MICROSCOPIC EXAMINATION:A-B. Sections demonstrate squamous epithelium with normal maturationand no evidence of inflammation, metaplasia, or atypia.C. Sections demonstrate gastric mucosa with normal glandulararchitecture. There is no significant lamina propria inflammatory cellpopulation. There is no neutrophilic, eosinophilic, or granulomatousinflammation.D. Sections show small bowel/duodenal mucosa with normal villous andcrypt architecture. The lamina propria inflammatory cell population isnormal. There is no increase in intraepithelial lymphocytes. There isno neutrophilic, eosinophilic, or granulomatous inflammation.E. Sections show ileal mucosa with normal villous and cryptarchitecture. The lamina propria inflammatory cell population isnormal. Normal mucosa-associated lymphoid tissue is present. There isno neutrophilic, eosinophilic, or granulomatous inflammation.F-I. Sections show colonic mucosa with normal crypt architecture and anormal lamina propria inflammatory cell population. There is noneutrophilic, eosinophilic, or granulomatous inflammation. REE HENSON MD 09/13/2018 Performed By: #### S ####[facility] [place], [place] [phone] NO CHARGEon 08-18-2018 INR Coag RelTime (Bld) CLINICAL HISTORY: Abdominal pain requiring abdominal ultrasound. No charge liver elastography.TECHNIQUE: Liver elastography was performed utilizing Siemens ARFI technique,interrogating the right hepatic lobe at multiple sites.COMPARISON: ultrasound 08/17/2018FINDINGS: All findings are in meters/second.Site 1: 2.84, 1.98, 1.71, 1.83, 2.01, 1.69, 1.88, 1.82, 2.06, 1.83, with a meanof 1.97 and a median of 1.86. IQR 0.19.Site 2: 1.37, 1.45, 1.57, 1.44, 1.85, 1.53, 1.48, 1.53, 1.26, 1.8, with a meanof 1.53 and a median of 1.51. IQR 0.13.IMPRESSION:Median values are elevated with appropriate interquartile ratio. Recommendrepeat liver elastography in 3 months to reassess. If values remain elevated,workup for any other signs of hepatic fibrosis should be pursued. The follow-upliver elastography will also be at no charge to the patient.This report has been created using voice recognition softwareSigned by: Dr. Rocio Cantor at 08/18/2018 09:07 Normal [facility] Progress Noteon 08-17-2018 [employer] Authentication Interface Message Text Elsa Louie is here for new office visit for: Abdominal PainHistory of Present MafyifiEEA89 year old with abdominal pain, nausea and pain after eating. Will vomit attimes, however not recently. Decreased appetite. This has been going on forgreater than 6 months. No precipitating event, has gotten worse over time.Pain 8/10, sharp pain. Stops her from what she is doing. Nausea is present mostof the time too, and worse after eating. Has some slowing of food in chest onceweekly. Less often now. No choking or gagging.Will wake up at night, not able to lay on stomach.Pain is all over, mid to lower sections.No extraintestinal symptoms, specifically no mouth ulcers, no joint pain, noacholic stools, no easy bruising/bleeding, no jaundice and no fevers of unknowncause. No weight loss.Has 1 bowel movements per day. They are soft, easy to pass without any pain,blood, or mucous. No stool or urine accidents. No dysuria or hematuria. Loosestools at times, once weekly.Good appetite and eats well, decreased lately.Omeprazole did not help, took this for 3 weeks, and didn't help.Geoffrey mckeon had an UGI- reportedly normalDrinks a lot of water. No juices or sodas.Lost 5 lbs since last visit because feels worse after eating.Currently has BOM - unable to swallow Augmentin tabs, to get new med.Normal labs and stools, including calprotectin. Mom would like to proceed withscopes as pain has been going on for some time.In preparation for upper and lower endoscopies the indications were thoroughlyexplained including infectious, allergic and inflammatory etiologies. The risksof the procedure were also explained including perforation, bleeding anddiscomfort. I explained she may feel bloated afterward and have a small sorethroat. I reviewed specifically that general anesthesia will be used includingendotracheal intubation. She will not be able to attend school the day of theprocedure and likely the day prior secondary to the preparation required. Parent(mother) verbalized understanding and agreed.Past Medical HistoryNo past medical history on file.Past Surgical HistoryNo past surgical history on file.AllergiesNo Known AllergiesMedicationsNo outpatient encounter prescriptions on file as of 08/17/2018.No facility-administered encounter medications on file as of 08/17/2018.Family Medical HistoryFamily HistoryProblem Relation Age of Onset Asthma Mother Irritable Bowel Syndrome Mother Gallbladder Disease Maternal Grandmother Bleeding Prob Neg Hx Cancer Neg Hx Colon Cancer Neg Hx Celiac Disease Neg Hx Colon Polyps Neg Hx Crohn's Disease Neg Hx Cystic Fibrosis Neg Hx Eosinophilic Esophagitis Neg Hx Hirschsprung's disease Neg Hx Kidney Disease Neg Hx Liver Disease Neg Hx Pancreatic Disease Neg Hx Stomach Ulcer(s) Neg Hx Thyroid Disease Neg Hx Ulcerative Colitis Neg HxSocial HistorySocial HistorySocial History Marital status: Single Spouse name: N/A Number of children: N/A Years of education: N/ASocial History Main Topics Smoking status: Never Smoker Smokeless tobacco: Never Used Alcohol use None Drug use: Unknown Sexual activity: Not AskedOther Topics Concern NoneSocial History Narrative NoneDietSocial History Who lives in the household? mom, sister Are there pets in the home? Yes Water source for child? Bottled water Has the patient ever been hospitalized? Yes Alternative meds, herbals, OTC meds and vitamins documented in medicationsection? NoReview of SystemsReview of SystemsConstitutional: Negative for recurrent fevers, weight loss, weight gain andmalaise/fatigue.HENT: Positive for ear infections and trouble swallowing (at times). Negativefor sinus problems, mouth sores, sore throat, dental problems and hearingproblems.Eyes: Positive for wears glasses.Respiratory: Negative for wheezing and pneumonia.Cardiovascular: Positive for chest pain (at times). Negative for heart murmurand heart problems.Gastrointestinal: Positive for vomiting, heartburn, trouble swallowing (attimes), abdominal pain and nausea. Negative for constipation, soilingunderpants, blood in stool and liver problems.Genitourinary: Negative for kidney problems (UTI as youngster).Neurological: Positive for headaches and dizziness. Negative for developmentaldelays, seizures and fainting.Musculoskeletal: Negative.Skin: Negative for rash.Allergy/Immune: allergic/immunologic negativeHematology: Negative.Physical ExaminationVitals: 08/17/18 0922BP: 115/58Pulse: 86BP Readings from Last 2 Encounters:08/17/18 115/ 101/60Weight - Scale: 55.3 kgHeight: 156.9 cmBody mass index is 22.46 kg/m .Physical ExamConstitutional: She appears well-developed. She is active.HENT:Nose: Her nose is normal. No nasal discharge.Mouth/Throat: Her mucous membranes are moist. Dentition is normal. Heroropharynx is clear.Eyes: Her EOM are normal. Right eye exhibits no discharge. Left eye exhibits nodischarge.Neck: Her neck is supple. Theres is no no neck adenopathy.Cardiovascular: No murmur heard.Pulmonary/Chest: Effort normal and breath sounds normal.Abdominal: Her abdomen is soft. She exhibits no distension. Bowel sounds arenormal. There is tenderness in the left lower quadrant. There is no CVAtenderness present.She displays no rebound and no rigidity in her abdomen.There is no hepatosplenomegaly.Neurologi liliane: She is alert.Skin: Skin is warm. Capillary refill takes less than 3 seconds. No pallor.Lab ResultsNone zhuwzdtCauipqnddc29 year old with abdominal pain, especially after eating.PUD vs gastritisNo improvement over timeNormal labs and stoolsPlanPatient InstructionsChronic Abdominal Pain1. Try Levsin 1 tablet up to three times daily as needed for pain2. Upper and lower scope to be scheduled3. Abdominal Ultrasound today at 1130, arrive to radiology at 1115, orangeelevators in main hospital to first floor.4. Will talk after scopes are complete about resultsThank you for allowing our [facility]. Please feel free tocall should you have questions or concerns.Kind Regards,Jil Underwood, CNPPediatric Nurse PractitionerPediatric [phone] [facility] US ABDOMEN COMPLETEon 2017 US ABDOMEN COMPLETE CLINICAL HISTORY: ab dominal pain, patient reports abdominal pain for 6 monthsTECHNIQUE: Sonographic evaluation of the abdomen was performed.COMPARISON: None.FINDINGS:LIVER: Normal.GALLBLADDER: Normal.CBD: Normal.CBD diameter: 2.2 mm.PANCREAS: Visualized portions appear normal.SPLEEN: Normal.Spleen length: 9.1 cm.KIDNEYS: There is mild prominence of the right renal pelvis measuring up to 1.3cm without evidence of calyectasis. The left kidney is normal.Right kidney length: 11.4 cm.Left kidney length: 11.0 cm.AORTA / IVC: Visualized portions are patent.URINARY BLADDER: Normal.IMPRESSION:Normal abdominal ultrasound findings.Created by resident and approvedThis report has been created using voice recognition softwareSigned by: Dr. Jam Stoner at 08/17/2018 13:40 [facility] Calprotectinon 05-16-2018 Protein mass conc g/dL Normal <=50.0 (Normal) [facility] Comment on above: Order Comment: SPECI MEN COLLECTED 10505/12/18 Result Comment: Test Performed by:[place] [address] Performed By: #### C ALPR ####[address] [phone] ABDOMEN 1 VIEWon 05-12-2018 ABDOMEN 1 VIEW CLINICAL HISTORY: ab dominal painTECHNIQUE: A supine frontal view of the abdomen was performed.IMAGES OBTAINED 2COMPARISON: NoneFINDINGS:There is a normal nonobstructive bowel gas pattern. Small amounts of stool arepresent in the colon. No abnormal calcifications are identified. The visualizedlung bases are aerated. No bony abnormalities are identified.IMPRESSION:No abnormalities are identified.This report has been created using voice recognition softwareSigned by: Dr. IAN THOMAS at 05/12/2018 11:48 [facility] C-Reactive Proteinon 018 CRP mass conc mg/L Normal 0.0-1.0 [facility] Comment on above: Order Comment: SPECI MEN COLLECTED 1050 05/12/18 Result Comment: CRP determinations in neonates should be interpreted withcaution. CRP may be elevated in circumstances not associatedwith inflammation (e.g. difficult delivery, pneumothorax). Inpremature neonates CRP levels may not rise to abnormal levelseven if sepsis is present; some speculate that immature liverfunction decreases the ability to generate a CRP response. Performed By: #### C RP ####[address] [phone] Comp Metabolic Panelon 05-12 Albumin mass conc 4.4 g/dL Normal 3.2-4.5 [facility] Comment on above: Order Comment: SPECI MEN COLLECTED 104905/12/18 Performed By: #### C MP ####[address] [phone] ALP enzyme act/vol 107 U/L Normal 50-162 [facility] Comment on above: Order Comment: SPECI MEN COLLECTED 104905/12/18 Performed By: #### C MP ####[address] [phone] ALT enzyme act/vol 11 U/L Normal 0-31 [facility] Comment on above: Order Comment: SPECI MEN COLLECTED 104905/12/18 Performed By: #### C MP ####[address] [phone] AST enzyme act/vol 21 U/L Normal 0-31 [facility] Comment on above: Order Comment: SPECI MEN COLLECTED 104905/12/18 Performed By: #### C MP ####[address] [phone] Bili,Total 0.4 mg/dl Normal 0.0-1.0 [facility] Comment on above: Order Comment: SPECI MEN COLLECTED 104905/12/18 Result Comment: Nils ature : 1 Day 1.0-6.0 mg/dl 2 Day 6.0-8.0 mg/dl 3-5 Day 10.0-15.0 mg/dl Performed By: #### C MP ####[address] [phone] Calcium mass conc 9.4 mg/dL Normal 7.6-11.0 [facility] Comment on above: Order Comment: SPECI MEN COLLECTED 104905/12/18 Performed By: #### C MP ####[address] [phone] Chloride molar conc 107 mmol/L Normal 96-108 [facility] Comment on above: Order Comment: SPECI MEN COLLECTED 104905/12/18 Performed By: #### C MP ####[address] [phone] CO2 molar conc 23.7 mmol/L Normal 22.0-29.0 [facility] Comment on above: Order Comment: SPECI MEN COLLECTED 104905/12/18 Performed By: #### C MP ####[address] [phone] Creatinine mass conc 0.65 mg/dL Normal 0.50-0.80 [facility] Comment on above: Order Comment: SPECI MEN COLLECTED 104905/12/18 Result Comment: Nils ature 0.3-1.0 mg/dL Performed By: #### C MP ####[address] [phone] Glucose mass conc 95 mg/dL Normal 70-99 [facility] Comment on above: Order Comment: SPECI MEN COLLECTED 104905/12/18 Result Comment: Rashard rhodes for Diagnosis of Diabetes(Effective 04/26/11):Fasting specimen (no caloric intake for at least 8 hours). <100 mg/dl Normal 100-125 mg/dl Increased Risk for Diabetes >125 mg/dl Diagnostic for DiabetesRandom Glucose (any time of day without regard to last meal). >=200 mg/dl plus Classic Symptoms of Diabetes Performed By: #### C MP ####[address] [phone] Potassium molar conc 4.2 mmol/L Normal 3.3-5.1 [facility] Comment on above: Order Comment: SPECI MEN COLLECTED 104905/12/18 Performed By: #### C MP ####[address] [phone] Protein mass conc 7.0 g/dL Normal 5.9-8.4 [facility] Comment on above: Order Comment: SPECI MEN COLLECTED 104905/12/18 Performed By: #### C MP ####[address] [phone] Sodium molar conc 138 mmol/L Normal 133-145 [facility] Comment on above: Order Comment: SPECI MEN COLLECTED 104905/12/18 Performed By: #### C MP ####[address] [phone] Urea nitrogen mass conc 10 mg/dL Normal 4-19 [facility] Comment on above: Order Comment: SPECI MEN COLLECTED 104905/12/18 Performed By: #### C MP ####[address] [phone] Complete Blood Counton 05-12 Differential Complete Automated Normal [facility] Comment on above: Order Comment: SPECI MEN COLLECTED 104905/12/18 Performed By: #### C BC ####[address] [phone] % Neutrophils 47.4 % Normal 34.0-64.0 [facility] Comment on above: Order Comment: SPECI MEN COLLECTED 104905/12/18 Performed By: #### C BC ####[address] [phone] Basophils/100 WBC Auto (Bld) 0.90 % Normal 0.00-1.00 [facility] Comment on above: Order Comment: SPECI MEN COLLECTED 104905/12/18 Performed By: #### C BC ####[address] [phone] Eosinophils/100 WBC Auto (Bld) 1.80 % Normal 0.00-3.00 [facility] Comment on above: Order Comment: SPECI MEN COLLECTED 104905/12/18 Performed By: #### C BC ####[address] [phone] Erythrocyte distribution width Auto Ratio (RBC) 13.0 % Normal 0.0-14.4 [facility] Comment on above: Order Comment: SPECI MEN COLLECTED 104905/12/18 Performed By: #### C BC ####[address] [phone] Hematocrit Auto Volume Fraction (Bld) 34.1 % Low 37.0-46.0 [facility] Comment on above: Order Comment: SPECI MEN COLLECTED 104905/12/18 Performed By: #### C BC ####[address] [phone] Hemoglobin mass conc (Bld) 11.4 g/dL Low 12.0-15.0 [facility] Comment on above: Order Comment: SPECI MEN COLLECTED 104905/12/18 Performed By: #### C BC ####[address] [phone] Immature granulocytes/100 WBC (Bld) 0.40 % Normal [facility] Comment on above: Order Comment: SPECI MEN COLLECTED 104905/12/18 Result Comment: Flakita ture Granulocyte Percent includes promyelocytes, myelocytes,and metamyelocytes. IG% > 1.0 indicates a left shift ispresent. With automated differentials, bands are includedin the neutrophil count and not in the Immature GranulocytePercent. Performed By: #### C BC ####[address] [phone] Lymphocytes/100 WBC Auto (Bld) 40.6 % Normal 25.0-45.0 [facility] Comment on above: Order Comment: SPECI MEN COLLECTED 104905/12/18 Performed By: #### C BC ####[address] [phone] MCH Auto Entitic mass (RBC) 26.6 pg Normal 25.0-35.0 [facility] Comment on above: Order Comment: SPECI MEN COLLECTED 104905/12/18 Performed By: #### C BC ####[address] [phone] MCHC Auto mass conc (RBC) 33.4 % Normal 31.0-37.0 [facility] Comment on above: Order Comment: SPECI MEN COLLECTED 104905/12/18 Performed By: #### C BC ####[address] [phone] MCV Auto Entitic volume (RBC) 79.7 fL Normal 78.0-96.0 [facility] Comment on above: Order Comment: SPECI MEN COLLECTED 104905/12/18 Performed By: #### C BC ####[address] [phone] Monocytes/100 WBC Auto (Bld) 8.90 % High 3.00-6.00 [facility] Comment on above: Order Comment: SPECI MEN COLLECTED 104905/12/18 Performed By: #### C BC ####[address] [phone] Neutrophils Auto #/vol (Bld) 2.7 Normal [facility] Comment on above: Order Comment: SPECI MEN COLLECTED 104905/12/18 Performed By: #### C BC ####[address] [phone] Nucleated RBC/100 WBC Ratio (Bld) 0.0 % Normal -1.0-0.0 [facility] Comment on above: Order Comment: SPECI MEN COLLECTED 104905/12/18 Performed By: #### C BC ####[address] [phone] Platelet mean volume Auto Entitic volume (Bld) 10.1 fL Normal [facility] Comment on above: Order Comment: SPECI MEN COLLECTED 104905/12/18 Result Comment: MPV is plateletrange and agedependent Performed By: #### C BC ####[address] [phone] Platelets Auto #/vol (Bld) 277 10*3/uL Normal 150-450 [facility] Comment on above: Order Comment: SPECI MEN COLLECTED 104905/12/18 Performed By: #### C BC ####[address] [phone] RBC Auto #/vol (Bld) 4.28 10E12/L Normal 4.10-4.80 [facility] Comment on above: Order Comment: SPECI MEN COLLECTED 104905/12/18 Performed By: #### C BC ####[address] [phone] WBC Auto #/vol (Bld) 5.7 10*3/uL Normal 4.5-13.0 [facility] Comment on above: Order Comment: SPECI MEN COLLECTED 104905/12/18 Performed By: #### C BC ####[address] [phone] ESRon 05-12-2018 ESR Sed Rate 6 mm Normal [facility] Comment on above: Order Comment: SPECI MEN COLLECTED 104905/12/18 Performed By: #### S RATE ####[address] [phone] Interpretation ----- Normal [facility] Comment on above: Order Comment: SPECI MEN COLLECTED 10505/12/18 Result Comment: Male FemaleChild 0-13 Child 0-13Adult 0- 9 Adult 0-20 Performed By: #### S RATE ####[address] [phone] H. pylori Ag EIAon 8 H. pylori Ag EIA H. pylori Ag EIA: H. pylori Ag: NEGATIVE Source: STOOL Collected: 05/12/18 10:50 Site: Received : 05/12/18 23:01H. pylori Ag EIA FINAL 05/13/18 15:12 H. pylori Ag: NEGATIVE Immunochromatographic Assay Normal [facility] Comment on above: Performed By: #### H PYAG ####[address] [phone] Immunoglobulin Aon 8 Immunoglobulin A 124 mg/dL Normal 47-249 [facility] Comment on above: Order Comment: SPECI MEN COLLECTED 104905/12/18 Performed By: #### I GA ####[address] [phone] Occult Blood, Qualon 018 Occult Blood, Qual Negative Normal Negative [facility] Comment on above: Order Comment: SPECI MEN COLLECTED 104905/12/18 Performed By: #### O CBLD ####[address] [phone] [address] # [id number] Normal [facility] Comment on above: Order Comment: SPECI MEN COLLECTED 104905/12/18 Performed By: #### O CBLD ####[address] [phone] Progress Noteon 05-12-2018 [employer] Authentication Interface Message Text Elsa Louie is here for new office visit for: Abdominal PainHistory of Present SsspkorLCP6 year old with abdominal pain, nausea and pain after eating. Will vomit attimes, however not recently. Decreased appetite. This has been going on for 3-4months. No precipitating event, has gotten worse over time.Pain 8/10, sharp pain. Stops her from what she is doing. Nausea is present mostof the time too, and worse after eating. Has some slowing of food in chest onceweekly. No choking or gagging.Will wake up at night, not able to lay on stomach.No extraintestinal symptoms, specifically no mouth ulcers, no joint pain, noacholic stools, no easy bruising/bleeding, no jaundice and no fevers of unknowncause. No weight loss.Has 1 bowel movements per day. They are soft, easy to pass without any pain,blood, or mucous. No stool or urine accidents. No dysuria or hematuria. Loosestools at times, once weekly.Good appetite and eats well, decreased lately.Omeprazole did not help, took this for 1.5 weeks.Geoffrey mckeon had an UGI- reportedly normalDrinks a lot of water.Past Medical HistoryHistory reviewed. No pertinent past medical history.Past Surgical HistoryHistory reviewed. No pertinent surgical history.AllergiesNo Known AllergiesMedicationsNo outpatient encounter prescriptions on file as of 05/12/2018.No facility-administered encounter medications on file as of 05/12/2018.Family Medical HistoryFamily HistoryProblem Relation Age of Onset Asthma Mother Irritable Bowel Syndrome Mother Gallbladder Disease Maternal Grandmother Bleeding Prob Neg Hx Cancer Neg Hx Colon Cancer Neg Hx Celiac Disease Neg Hx Colon Polyps Neg Hx Crohn's Disease Neg Hx Cystic Fibrosis Neg Hx Eosinophilic Esophagitis Neg Hx Hirschsprung's disease Neg Hx Kidney Disease Neg Hx Liver Disease Neg Hx Pancreatic Disease Neg Hx Stomach Ulcer(s) Neg Hx Thyroid Disease Neg Hx Ulcerative Colitis Neg HxSocial HistorySocial HistorySocial History Marital status: Single Spouse name: N/A Number of children: N/A Years of education: N/ASocial History Main Topics Smoking status: Never Smoker Smokeless tobacco: Never Used Alcohol use None Drug use: Unknown Sexual activity: Not AskedOther Topics Concern NoneSocial History Narrative NoneDietSocial HistoryReview of SystemsReview of SystemsConstitutional: Negative for recurrent fevers, weight loss, weight gain andmalaise/fatigue.HENT: Positive for ear infections and trouble swallowing (at times). Negativefor sinus problems, mouth sores, sore throat, dental problems and hearingproblems.Eyes: Positive for wears glasses.Respiratory: Negative for wheezing and pneumonia.Cardiovascular: Positive for chest pain (at times). Negative for heart murmurand heart problems.Gastrointestinal: Positive for vomiting, heartburn, trouble swallowing (attimes), abdominal pain and nausea. Negative for constipation, soilingunderpants, blood in stool and liver problems.Genitourinary: Negative for kidney problems (UTI as youngster).Neurological: Positive for headaches and dizziness. Negative for developmentaldelays, seizures and fainting.Musculoskeletal: Negative.Skin: Negative for rash.Allergy/Immune: allergic/immunologic negativeHematology: Negative.Physical ExaminationVitals: 05/12/18 0923BP: 101/60Pulse: 77BP Readings from Last 2 Encounters:05/12/18 101/ 97/56Weight - Scale: 57.2 kgHeight: 156.5 cmBody mass index is 23.35 kg/m .Physical ExamConstitutional: She appears well-developed. She is active.HENT:Nose: Her nose is normal. No nasal discharge.Mouth/Throat: Her mucous membranes are moist. Dentition is normal. Heroropharynx is clear.Eyes: Her EOM are normal. Right eye exhibits no discharge. Left eye exhibits nodischarge.Neck: Her neck is supple. Theres is no no neck adenopathy.Cardiovascular: No murmur heard.Pulmonary/Chest: Effort normal and breath sounds normal.Abdominal: Her abdomen is soft. She exhibits no distension. Bowel sounds arenormal. There is tenderness in the left lower quadrant. There is no CVAtenderness present.She displays no rebound and no rigidity in her abdomen.There is no hepatosplenomegaly.Neurologi liliane: She is alert.Skin: Skin is warm. Capillary refill takes less than 3 seconds. No pallor.Lab ResultsNone 89 year old with abdominal pain, especially after eating.PUD vs gastritisPlanPatient InstructionsAbdominal PainWorse after eating1. Lab work today - please proceed to the 3rd floor lab. Most results will beready within 3-5 days. If you choose to have these completed at an outside lab,please call our office a few days later to insure we received the results.2. Please collect stool sample - Should you decide to turn these samples in ken outside hospital, please call our office 10 days after completed in order toreview results.3. Xray today4. Please take Pantoprazole 20 mg once daily - this can be swallowed whole oropened in applesauce. Must be taken on an empty stomach, 30 min beforebreakfast. Take every day, do not skip doses. Can take several days to takeeffect. This has been electronically sent to your pharmacy.Thank you for allowing our participation in [facility]. Please feel free tocall should you have questions or concerns.Kind Regards,Jil Underwood, [facility] HEALTH HOSPITALPediatric Nurse PractitionerDoctors Hospital Of Augustaiatric [phone] Normal [facility] T4,Freeon 05-12-2018 T4 free mass conc 1.3 ng/dL Normal 0.8-1.5 [facility] Comment on above: Order Comment: SPECI MEN COLLECTED 104905/12/18 Result Comment: New Reference Ranges - effective 09/10/09. Performed By: #### T 4FR ####[address] [id number] TSHon 05-12-2018 Thyrotropin Qn 1.827 uIU/mL Normal 0.350-5.500 [facility] Comment on above: Order Comment: SPECI MEN COLLECTED 104905/12/18 Performed By: #### T SH ####[address] [id number] Transglutaminase IgAon 05-12 Transglutaminase IgA <20.00 Normal 0.00-20.00 [facility] Comment on above: Order Comment: SPECI MEN COLLECTED 104905/12/18 Result Comment: Nega tive: < 20 UnitsWeak Positive: 20-30 UnitsModerate to Strong Positive: > 30 Units Performed By: #### T MIGUEL ####[facility] [place], [place] [phone] Vital Signs Date Time Vital Sign Value Performing Clinician Facility 09-03-2025 09:24-0400 Body height 154.94 cm Nicolette Esquivel TACK CLEANER-C Work Phone: [facility] 09-03-2025 09:24-0400 Body mass index (BMI) [Ratio] 35.4 kg/m2 Nicolette Esquivel TACK CLEANER-C Work Phone: [facility] 09-03-2025 09:24-040 Body weight 85.02 kg Nicolette Esquivel TACK CLEANER-C Work Phone: [facility] 07-12-2025 08:53-0400 Body mass index (BMI) [Ratio] 33.32 kg/m2 Jasen Swank DIRECTOR OF CORPORATE STRATEGY.SURVEY RESEARCH ANALYST Work Phone: [facility] 07-12-2025 08:53-0400 Body temperature 97.59 [degF] Jasen Swank DIRECTOR OF CORPORATE STRATEGY.SURVEY RESEARCH ANALYST Work Phone: [facility] 07-12-2025 08:53-0400 Body weight 80 kg Jasen Swank DIRECTOR OF CORPORATE STRATEGY.SURVEY RESEARCH ANALYST Work Phone: [facility] 07-12-2025 08:53-0400 Diastolic blood pressure 81 mm[Hg] Jasen Swank DIRECTOR OF CORPORATE STRATEGY.SURVEY RESEARCH ANALYST Work Phone: [facility] 07-12-2025 08:53-0400 Heart rate 68 /min Jasen Swank DIRECTOR OF CORPORATE STRATEGY.SURVEY RESEARCH ANALYST Work Phone: [facility] 07-12-2025 08:53-0400 Respiratory rate 20 /min Jasen Swank DIRECTOR OF CORPORATE STRATEGY.SURVEY RESEARCH ANALYST Work Phone: [facility] 07-12-2025 08:53-0400 SaO2% (BldA) [Mass fraction] 100 % Jasen Swank DIRECTOR OF CORPORATE STRATEGY.SURVEY RESEARCH ANALYST Work Phone: [facility] 07-12-2025 08:53-0400 Systolic blood pressure 116 mm[Hg] Jasen Young DIRECTOR OF CORPORATE STRATEGY.SURVEY RESEARCH ANALYST Work Phone: [facility] 05-07-2025 09:24-0400 Body mass index (BMI) [Ratio] 34.01 kg/m2 Nicolette Neumann DIRECTOR OF CORPORATE STRATEGY.CNM Work Phone: [facility] 05-07-2025 09:24-0400 Body weight 81.65 kg Nicolette Neumann DIRECTOR OF CORPORATE STRATEGY.CNM Work Phone: [facility] 05-07-2025 09:24-0400 Diastolic blood pressure 72 mm[Hg] Nicolette Neumann DIRECTOR OF CORPORATE STRATEGY.CNM Work Phone: [facility] 05-07-2025 09:24-0400 Systolic blood pressure 110 mm[Hg] Nicolette Neumann DIRECTOR OF CORPORATE STRATEGY.CNM Work Phone: [facility] 02-27-2025 13:55-0400 Body mass index (BMI) [Ratio] 32.88 kg/m2 Nicolette Neumann DIRECTOR OF CORPORATE STRATEGY.CNM Work Phone: [facility] 02-27-2025 13:55-0400 Body weight 78.93 kg Nicolette Neumann DIRECTOR OF CORPORATE STRATEGY.CNM Work Phone: [facility] 02-27-2025 13:55-0400 Diastolic blood pressure 66 mm[Hg] Nicolette Neumann DIRECTOR OF CORPORATE STRATEGY.CNM Work Phone: [facility] 02-27-2025 13:55-0400 Systolic blood pressure 110 mm[Hg] Nicolette Neumann DIRECTOR OF CORPORATE STRATEGY.CNM Work Phone: [facility] 11-22-2024 00:43-[address] ELIO WOOD MD [facility] 11-22-2024 00:43-0500 Diastolic Blood Pressure Non-Invasive 62 mm[Hg] DR ELIO WOOD MD [facility] 11-22-2024 00:43-0500 Heart rate 85 /min DR ELIO WOOD MD [facility] 11-22-2024 00:43-0500 Mean blood pressure 73 mm[Hg] DR ELIO WOOD MD [facility] 11-22-2024 00:43-0500 Reason For Taking VItal Signs DR ELIO WOOD MD [facility] 11-22-2024 00:43-0500 Respiratory rate 16 /min DR ELIO WOOD MD [facility] 11-22-2024 00:43-0500 Systolic Blood Pressure Non-Invasive 97 mm[Hg] DR ELIO WOOD MD [facility] 11-21-2024 23:08-[address] ELIO WOOD MD [facility] 11-21-2024 23:08-0500 Body height [address] ELIO WOOD MD [facility] 11-21-2024 23:08-0500 Body temperature 98.6 [degF] DR ELIO WOOD MD [facility] 11-21-2024 23:08-0500 Body weight 70.[address] ELIO WOOD MD [facility] 11-21-2024 23:08-0500 Diastolic Blood Pressure Non-Invasive 78 mm[Hg] DR ELIO WOOD MD [facility] 11-21-2024 23:08-0500 Heart rate 118 /min DR ELIO WOOD MD [facility] 11-21-2024 23:08-0500 Respiratory rate 18 /min DR ELIO WOOD MD [facility] 11-21-2024 23:08-0500 Systolic Blood Pressure Non-Invasive 111 mm[Hg] DR ELIO WOOD MD [facility] 11-08-2024 14:35-0500 Body height 154.9 cm Rhianna Gruberjunito DUMONT Work Phone: [facility] 11-08-2024 14:35-0500 Body mass index (BMI) [Ratio] 30.23 kg/m2 Rhianna Jameson RD Work Phone: [facility] 11-08-2024 14:35-0500 Body weight 72.[address] Work Phone: [facility] 09-06-2024 00:18-0400 Diastolic Blood Pressure Non-Invasive 70 mm[Hg] ROCIO REYNOLDS DO [facility] 09-06-2024 00:18-0400 Heart rate 73 /min ROCIO REYNOLDS DO [facility] 09-06-2024 00:18-0400 Respiratory rate 16 /min ROCIO REYNOLDS DO [facility] 09-06-2024 00:18-0400 Systolic Blood Pressure Non-Invasive 106 mm[Hg] ROCIO REYNOLDS DO [facility] 09-05-2024 23:01-0400 Diastolic Blood Pressure Non-Invasive 85 mm[Hg] ROCIO REYNOLDS DO [facility] 09-05-2024 23:01-0400 Mean blood pressure 94 mm[Hg] ROCIO REYNOLDS DO [facility] 09-05-2024 23:01-0400 Systolic Blood Pressure Non-Invasive 116 mm[Hg] ROCIO REYNOLDS DO [facility] 09-05-2024 22:54-0400 Body height 155 cm ROCIO REYNOLDS DO [facility] 09-05-2024 22:54-0400 Body temperature 99.14 [degF] ROCIO REYNOLDS DO [facility] 09-05-2024 22:54-0400 Body weight 63.6 kg ROCIO REYNOLDS DO [facility] 09-05-2024 22:54-0400 Diastolic Blood Pressure Non-Invasive 88 mm[Hg] ROCIO REYNOLDS DO [facility] 09-05-2024 22:54-0400 Heart rate 96 /min ROCIO REYNOLDS DO [facility] 09-05-2024 22:54-0400 Respiratory rate 16 /min ROCIO REYNOLDS DO [facility] 09-05-2024 22:54-0400 Systolic Blood Pressure Non-Invasive 135 mm[Hg] ROCIO REYNOLDS DO [facility] 06-11-2024 15:25-0400 Diastolic Blood Pressure Non-Invasive 74 mm[Hg] DR ELIO WOOD MD [facility] 06-11-2024 15:25-0400 Heart rate 70 /min DR ELIO WOOD MD [facility] 06-11-2024 15:25-0400 Respiratory rate 18 /min DR ELIO WOOD MD [facility] 06-11-2024 15:25-0400 Systolic Blood Pressure Non-Invasive 126 mm[Hg] DR ELIO WOOD MD [facility] 06-11-2024 12:43-0400 Body temperature 97.88 [degF] DR ELIO WOOD MD [facility] 06-11-2024 12:43-0400 Body weight 65.[address] ELIO WOOD MD [facility] 06-11-2024 12:43-0400 Diastolic Blood Pressure Non-Invasive 88 mm[Hg] DR ELIO WOOD MD [facility] 06-11-2024 12:43-0400 Heart rate 63 /min DR ELIO WOOD MD [facility] 06-11-2024 12:43-0400 Respiratory rate 18 /min DR ELIO WOOD MD [facility] 06-11-2024 12:43-0400 Systolic Blood Pressure Non-Invasive 130 mm[Hg] DR ELIO WOOD MD [facility] 05-08-2024 00:09-0400 Diastolic Blood Pressure Non-Invasive 59 mm[Hg] DR SADAF BATISTA DO [facility] 05-08-2024 00:09-0400 Heart rate 73 /min DR SADAF BATISTA DO [facility] 05-08-2024 00:09-0400 Mean blood pressure 75 mm[Hg] DR SADAF BATISTA DO [facility] 05-08-2024 00:09-0400 Respiratory rate 16 /min DR SADAF BATISTA DO [facility] 05-08-2024 00:09-0400 Systolic Blood Pressure Non-Invasive 111 mm[Hg] DR SADAF BATISTA DO [facility] 05-07-2024 23:06-0400 Body height [address] SADAF BATISTA DO [facility] 05-07-2024 23:06-0400 Body temperature 99.14 [degF] DR SADAF BATISTA DO [facility] 05-07-2024 23:06-0400 Body weight 65.[address] SADAF BATISTA DO [facility] 05-07-2024 23:06-0400 Diastolic Blood Pressure Non-Invasive 85 mm[Hg] DR SADAF BATISTA DO [facility] 05-07-2024 23:06-0400 Heart rate 91 /min DR SADAF BATISTA DO [facility] 05-07-2024 23:06-0400 Respiratory rate 18 /min DR SADAF BATISTA DO [facility] 05-07-2024 23:06-0400 Systolic Blood Pressure Non-Invasive 117 mm[Hg] DR SADAF BATISTA DO [facility] 10-24-2023 21:05-0500 Body temperature 98.06 [degF] NORTH MAYES MD [facility] 10-24-2023 21:05-0500 Diastolic Blood Pressure Non-Invasive 70 mm[Hg] NORTH MAYES MD [facility] 10-24-2023 21:05-0500 Heart rate 70 /min NORTH MAYES MD [facility] 10-24-2023 21:05-0500 Systolic Blood Pressure Non-Invasive 106 mm[Hg] NORTH MAYES MD [facility] 09-22-2023 23:06-0400 Blood Pressure Location DAIN BILLINGSLEY MD [facility] 09-22-2023 23:06-0400 Blood Pressure Method DAIN BILLINGSLEY MD [facility] 09-22-2023 23:06-0400 Diastolic Blood Pressure Non-Invasive 50 1 DAIN BILLINGSLEY MD [facility] 09-22-2023 23:06-0400 Heart rate 95 /min DAIN BILLINGSLEY MD [facility] 09-22-2023 23:06-0400 Reason For Taking VItal Signs DAIN BILLINGSLEY MD [facility] 09-22-2023 23:06-0400 Respiratory rate 16 /min DAIN BILLINGSLEY MD [facility] 09-22-2023 23:06-0400 Systolic Blood Pressure Non-Invasive 90 1 DAIN BILLINGSLEY MD [facility] 09-22-2023 22:22-0400 Blood Pressure Location DAIN BILLINGSLEY MD [facility] 09-22-2023 22:22-0400 Blood Pressure Method DAIN BILLINGSLEY MD [facility] 09-22-2023 22:22-0400 Diastolic Blood Pressure Non-Invasive 61 1 DAIN BILLINGSLEY MD [facility] 09-22-2023 22:22-0400 Heart rate 103 /min DAIN BILLINGSLEY MD [facility] 09-22-2023 22:22-0400 Reason For Taking VItal Signs DAIN BILLINGSLEY MD [facility] 09-22-2023 22:22-0400 Respiratory rate 18 /min DAIN BILLINGSLEY MD [facility] 09-22-2023 22:22-0400 Systolic Blood Pressure Non-Invasive 119 1 DAIN BILLINGSLEY MD [facility] 09-22-2023 21:37-0400 Blood Pressure Location DAIN BILLINGSLEY MD [facility] 09-22-2023 21:37-0400 Blood Pressure Method DAIN BILLINGSLEY MD [facility] 09-22-2023 21:37-0400 Diastolic Blood Pressure Non-Invasive 76 1 DAIN BILLINGSLEY MD [facility] 09-22-2023 21:37-0400 Heart rate 107 /min DAIN BILLINGSLEY MD [facility] 09-22-2023 21:37-0400 Reason For Taking VItal Signs DAIN BILLINGSLEY MD [facility] 09-22-2023 21:37-0400 Respiratory rate 20 /min DAIN BILLINGSLEY MD [facility] 09-22-2023 21:37-0400 Systolic Blood Pressure Non-Invasive 101 1 DAIN BILLINGSLEY MD [facility] 09-22-2023 21:08-0400 Body height 155 cm DAIN BILLINGSLEY MD [facility] 09-22-2023 21:08-0400 Body temperature 99.5 [degF] DAIN BILLINGSLEY MD [facility] 09-22-2023 21:08-0400 Body weight 66.7 kg DAIN BILLINGSLEY MD [facility] 09-11-2023 05:05-0400 Diastolic Blood Pressure Non-Invasive 82 1 YE ANDERSON MD [facility] 09-11-2023 05:05-0400 Heart rate 72 /min YE ANDERSON MD [facility] 09-11-2023 05:05-0400 Reason For Taking VItal Signs YE ANDERSON MD [facility] 09-11-2023 05:05-0400 Respiratory rate 16 /min YE ANDERSON MD [facility] 09-11-2023 05:05-0400 Systolic Blood Pressure Non-Invasive 106 1 YE ANDERSON MD [facility] 09-11-2023 03:18-0400 Blood Pressure Cuff Size YE ANDERSON MD [facility] 09-11-2023 03:18-0400 Blood Pressure Location YE ANDERSON MD [facility] 09-11-2023 03:18-0400 Blood Pressure Method YE ANDERSON MD [facility] 09-11-2023 03:18-0400 Body height 155 cm YE ANDERSON MD [facility] 09-11-2023 03:18-0400 Body temperature 97.7 [degF] YE ANDERSON MD [facility] 09-11-2023 03:18-0400 Body weight 63.6 kg YE ANDERSON MD [facility] 09-11-2023 03:18-0400 Diastolic Blood Pressure Non-Invasive 76 1 YE ANDERSON MD [facility] 09-11-2023 03:18-0400 Heart rate 88 /min YE ANDERSON MD [facility] 09-11-2023 03:18-0400 Reason For Taking VItal Signs YE ANDERSON MD [facility] 09-11-2023 03:18-0400 Respiratory rate 16 /min YE ANDERSON MD [facility] 09-11-2023 03:18-0400 Systolic Blood Pressure Non-Invasive 113 1 YE ANDERSON MD [facility] 09-12-2022 00:57-0400 Diastolic blood pressure 66 mm[Hg] WILFRED BEST DO [facility] 09-12-2022 00:57-0400 Heart rate 70 /min WILFRED BEST DO [facility] 09-12-2022 00:57-0400 Respiratory rate 18 /min WILFRED BEST DO [facility] 09-12-2022 00:57-0400 Systolic blood pressure 107 mm[Hg] WILFRED BEST DO [facility] 09-11-2022 23:33-0400 Body height 155 cm WILFRED BEST DO [facility] 09-11-2022 23:33-0400 Body temperature 99.14 [degF] WILFRED BEST DO [facility] 09-11-2022 23:33-0400 Body weight 59.1 kg WILFRED BEST DO [facility] 09-11-2022 23:33-0400 Diastolic blood pressure 69 mm[Hg] WILFRED BEST DO [facility] 09-11-2022 23:33-0400 Heart rate 77 /min WILFRED BEST DO [facility] 09-11-2022 23:33-0400 Height ZScore -1.27 WILFRED BEST DO [facility] Comment on above: Result Comment: ^~:!ZScore Source -[facility] 09-11-2022 23:33-0400 Percent Height for Age 10.15 1 WILFRED BEST DO [facility] Comment on above: Result Comment: ^~:!Percentile Source [facility] 09-11-2022 23:33-0400 Respiratory rate 20 /min WILFRED BEST DO [facility] 09-11-2022 23:33-0400 Systolic blood pressure 102 mm[Hg] WILFRED BEST DO [facility] 09-06-2022 16:57-0400 Body height 155 cm NORTH MAYES MD [facility] 09-06-2022 16:57-0400 Body temperature 98.6 [degF] NORTH MAYES MD [facility] 09-06-2022 16:57-0400 Body weight 59 kg NORTH MAYES MD [facility] 09-06-2022 16:57-0400 Diastolic blood pressure 63 mm[Hg] NORTH MAYES MD [facility] 09-06-2022 16:57-0400 Heart rate 115 /min NORTH MAYES MD [facility] 09-06-2022 16:57-0400 Height ZScore -1.27 NORTH MAYES MD [facility] Comment on above: Result Comment: ^~:!ZScore Source -[facility] 09-06-2022 16:57-0400 Percent Height for Age 10.15 1 NORTH MAYES MD [facility] Comment on above: Result Comment: ^~:!Percentile Source -[facility] 09-06-2022 16:57-0400 Respiratory rate 18 /min NORTH MAYES MD [facility] 09-06-2022 16:57-0400 Systolic blood pressure 107 mm[Hg] NORTH MAYES MD [facility] Encounters Encounter Date Encounter Type Care Provider Facility Start: 09-19-2025 End: 09-19-2025 ambulatory Nicolette Esquivel TACK CLEANER Facility:[facility] [place] [place] Start: 09-19-2025 End: 09-19-2025 ambulatory Nicolette Esquivel NP Facility:[facility] Start: 09-09-2025 End: 09-09-2025 ambulatory SAMM LARSON Facility:[facility] Start: 09-03-2025 End: 09-03-[address] Dalila Dale MD -[facility] Work Phone: Start: 09-03-2025 End: 09-03-2025 ambulatory Nicolette Esquivel TACK CLEANER-C Work Phone: -[facility] Start: 08-28-2025 End: 08-28-2025 ambulatory DANIELA FENTON Facility:[facility] Start: 07-12-2025 Unlisted evaluation and management service Jasen Gabriel APRN.SURVEY RESEARCH ANALYST Work Phone: [facility] Work Phone: Start: 07-12-2025 End: 07-12-2025 Patient encounter procedure Jasen Gabriel APRN.SURVEY RESEARCH ANALYST Work Phone: [facility] Comment on above: Superficial foreign body of left foot, initial encounter (Primary Dx) Start: 07-12-2025 End: 07-12-2025 ambulatory DANIELA FENTON Facility:[facility] Start: 05-28-2025 End: 05-28-2025 Telemedicine consultation with patient Edie Aleman SURVEY RESEARCH ANALYST Work Phone: Neurology Start: 05-28-2025 End: 05-28-2025 ambulatory Edie Aleman DIRECTOR OF CORPORATE STRATEGY.SURVEY RESEARCH ANALYST Work Phone: Neurology Comment on above: Chronic daily headac he (Primary Dx); Migraine without aura and without status migrainosus, not intractable; Postural orthostatic tachycardia syndrome (POTS) Start: 05-09-2025 End: 05-09-2025 ambulatory Kristy Eldridge RN NURSE RUBBER GOODS SUPERVISOR Start: 05-09-2025 End: 05-09-2025 Patient encounter procedure Kristy Eldridge RN NURSE RUBBER GOODS SUPERVISOR Comment on above: Referral Request Start: 05-07-2025 End: 05-07-2025 ambulatory DANIELA FENTON Facility:[facility] Start: 05-07-2025 End: 05-07-2025 Patient encounter procedure Nicolette Neumann APRN.CNM Work Phone: OB/Gynecology Comment on above: Abnormal uterine ble eding (AUB) (Primary Dx); PCOS (polycystic ovarian syndrome); Elevated testosterone level; Class 1 obesity without serious comorbidity with body mass index (BMI) of 34.0 to 34.9 in adult, unspecified obesity type; Cyst of left ovary; Migraine with aura and without status migrainosus, not intractable; Elevated lipoprotein(a) Start: 05-03-2025 End: 05-04-2025 Emergency department patient visit DR SADAF BATISTA DO [facility] Start: 05-02-2025 End: 05-02-2025 ambulatory DANIELA FENTON DIRECTOR OF CORPORATE STRATEGY - SURVEY RESEARCH ANALYST Facility:[facility] Start: 05-02-2025 End: 05-02-2025 Patient encounter procedure DANIELA FENTON DIRECTOR OF CORPORATE STRATEGY - SURVEY RESEARCH ANALYST [facility] Start: 03-08-2025 End: 03-08-2025 ambulatory NICOLETTE NEUMANN Facility:[facility] Start: 03-08-2025 End: 05-08-2025 Follow-up encounter Perri Bridges MD Work Phone: OB/Gynecology Start: 03-04-2025 End: 03-04-2025 ambulatory NICOLETTE THIEN Facility:[facility] Start: 02-27-2025 End: 02-27-2025 ambulatory NICOLETTE NEUMANN Facility:[facility] Start: 02-27-2025 End: 02-27-2025 Patient encounter procedure Nicolette Thien DIRECTOR OF CORPORATE STRATEGY.CNM Work Phone: OB/Gynecology Comment on above: Abnormal uterine ble eding (AUB) (Primary Dx); Pelvic pain in female; Screening for cervical cancer; Screening for human papillomavirus (HPV) Start: 11-21-2024 End: 11-22-2024 Emergency department patient visit DR ELIO WOOD MD [facility] Start: 11-19-2024 End: 11-19-2024 ambulatory ZOLTAN A [facility] Facility:[facility] Start: 11-19-2024 End: 11-19-2024 Subsequent hospital visit by physician [facility] Work Phone: Radiology Comment on above: Bloating [R14.0] Start: 11-08-2024 End: 11-08-2024 Patient encounter procedure Rhianna Jameson RD Work Phone: Nutrition Therapy Comment on above: Bloating Start: 11-08-2024 End: 11-08-2024 Telemedicine consultation with patient Rhianna Jameson RD Work Phone: Nutrition Therapy Start: 11-08-2024 End: 11-08-2024 ambulatory RHIANNA JAMESON Facility:[facility] Start: 11-05-2024 End: 11-05-2024 ambulatory ZOLTAN BETANCOURT Facility:[facility] Start: 11-05-2024 End: 11-05-2024 ambulatory Zoltan Betancourt MD Work Phone: Gastroenterology Comment on above: Bloating (Primary Dx ) Start: 11-05-2024 End: 11-05-2024 Telemedicine consultation with patient Zoltan Betancourt MD Work Phone: Gastroenterology Start: 09-05-2024 End: 09-06-2024 Emergency department patient visit ROCIO REYNOLDS DO [facility] Start: 07-27-2024 End: 07-27-2024 ambulatory NICOLETTE ESQUIVEL DIRECTOR OF CORPORATE STRATEGY-SURVEY RESEARCH ANALYST Facility:[facility] Start: 07-27-2024 End: 07-27-[address] YOSVANY BERNSTEIN MD [facility] Start: 07-18-[address] YOSVANY BERNSTEIN MD Fa cility:B Start: 06-11-2024 End: 06-11-2024 Emergency department patient visit DR ELIO WOOD MD [facility] Start: 05-07-2024 End: 05-08-2024 Emergency department patient visit DR SADAF BATISTA DO [facility] Start: 03-15-2024 End: 03-15-2024 ambulatory NICOLETTE ESQUIVEL DIRECTOR OF CORPORATE STRATEGY-SURVEY RESEARCH ANALYST Facility:B Start: 03-15-2024 End: 03-15-2024 Patient encounter procedure NICOLETTE JUAREZMER DIRECTOR OF CORPORATE STRATEGY-SURVEY RESEARCH ANALYST [facility] Start: 03-15-2024 End: 03-15-2024 ambulatory NICOLETTE ESQUIVEL DIRECTOR OF CORPORATE STRATEGY-SURVEY RESEARCH ANALYST Facility:B Start: 03-15-2024 End: 03-15-2024 Patient encounter procedure NICOLETTE ESQUIVEL DIRECTOR OF CORPORATE STRATEGY-SURVEY RESEARCH ANALYST [facility] Start: 11-07-2023 End: 11-07-[address] YOSVANY BERNSTEIN MD Facility:B Start: 10-25-2023 End: 10-25-2023 ambulatory NORTH MAYES MD Facility:B Start: 10-25-2023 End: 10-25-2023 Patient encounter procedure NORTH MAYES MD [facility] Start: 10-24-2023 End: 10-24-2023 Emergency department patient visit NORTH MAYES MD [facility] Start: 10-03-2023 End: 10-03-2023 ambulatory PROSPER MURILLO DIRECTOR OF CORPORATE STRATEGY-SURVEY RESEARCH ANALYST Facility:B Start: 10-03-2023 End: 10-03-2023 Patient encounter procedure PROSPER Johnson CHIDI DIRECTOR OF CORPORATE STRATEGY-SURVEY RESEARCH ANALYST [facility] Start: 09-28-2023 ambulatory SUMA VIOLA DIRECTOR OF CORPORATE STRATEGY-SURVEY RESEARCH ANALYST Fa cility:B Start: 09-26-2023 End: 09-26-2023 ambulatory PROSPER L MURILLO DIRECTOR OF CORPORATE STRATEGY-SURVEY RESEARCH ANALYST Facility:B Start: 09-26-2023 End: 09-26-2023 Patient encounter procedure PROSPER WINSLOWSEY DIRECTOR OF CORPORATE STRATEGY-SURVEY RESEARCH ANALYST [facility] Start: 09-22-2023 End: 09-22-2023 Emergency department patient visit DAIN BILLINGSLEY MD [facility] Start: 09-11-2023 End: 09-11-2023 Emergency department patient visit YE ANDERSON MD [facility] Start: 08-09-2023 End: 2023 ambulatory NICOLETTE ESQUIVEL DIRECTOR OF CORPORATE STRATEGY-SURVEY RESEARCH ANALYST Facility:B Start: 08-09-2023 End: 2023 Outreach Lab NICOLETTE ESQUIVEL DIRECTOR OF CORPORATE STRATEGY-SURVEY RESEARCH ANALYST [facility] Start: 09-11-2022 End: 09-12-2022 Emergency department patient visit WILFRED BEST DO [facility] Start: 09-10-2022 End: 09-14-2022 Outreach Lab IMELDA CHAMBERS MD [facility] Start: 09-07-2022 End: 09-11-2022 Outreach Lab MOR GLYNN DIRECTOR OF CORPORATE STRATEGY-SURVEY RESEARCH ANALYST [facility] Start: 09-06-2022 End: 09-06-2022 Emergency department patient visit NORTH MAYES MD [facility] Start: 05-17-2022 Non-patient / Non-visit TACK CLEANER-C Florina Esquivel TACK CLEANER Work Phone: [facility] Start: 05-17-2022 End: 05-17-2022 Patient encounter procedure TACK CLEANER-C Nicolette Esquivel TACK CLEANER Work Phone: [facility]-Cardiovascular Services Start: 04-20-2022 End: 04-20-2022 Patient encounter procedure NICOLETTE ESQUIVEL DIRECTOR OF CORPORATE STRATEGY-SURVEY RESEARCH ANALYST [facility] Start: 04-16-2022 End: 04-16-2022 Patient encounter procedure [facility]-Pulmonary Services/Neurology Start: 04-13-2022 End: 04-13-2022 Patient encounter procedure [facility] Start: 01-05-2022 End: 01-09-2022 Outreach Lab JOE RAYO MD [facility] Start: 11-30-2018 End: 12-01-2018 Patient encounter procedure JIL [facility] Start: 09-11-2018 End: 09-11-2018 Patient encounter procedure KHANG CORTES [facility] Start: 08-17-2018 End: 08-17-2018 Patient encounter procedure SANDHYA Chen April LUKEER [facility] Start: 08-17-2018 End: 08-18-2018 Patient encounter procedure Rocio Cantor [facility] Start: 08-17-2018 End: 08-17-2018 Patient encounter procedure JIL [facility] Start: 05-12-2018 End: 05-13-2018 Patient encounter procedure JIL [facility] Start: 05-12-2018 End: 05-12-2018 Patient encounter procedure [facility] Procedures Date Procedure Procedure Detail Performing Clinician Start: 02-27-2025 BACTERIAL VAGINOSIS NAAT Nicolette Neumann APRN.PANCHO Work Phone: Start: 02-27-2025 Iadna chlamydia trachomatis amplified probe tq Nicolette Neumann APRN.CNApril Work Phone: Start: 11-19-2024 Us abdominal real ti me w/image limited Zoltan Betancourt MD Work Phone: Start: 04-29-2022 None (qualifier value) NORTH MAYES MD Plan of Treatment Date Care Activity Detail Author Start: 02-28-2028 Screening for malign ant neoplasm of cervix Cervical Cancer Screening [facility] Start: 07-09-2026 Urine microalbumin profile DTaP,Tdap,Td Vaccine (7 - Td or Tdap) [facility] Start: 02-27-2026 GC (Gonorrhea) Scree kaylee (18-24) GC (Gonorrhea) Screening (18-) [facility] Start: 02-27-2026 Screening for Chlamy warren trachomatis Chlamydia Screening () [facility] Start: 09-23-2025 End: 09-23-2025 Patient encounter procedure 09/23/2025 9:30 AM EST Office Visit OB/Gynecology [address] [place] [address] Nicolette Neumann APRN.CNM [address] [place] [address] Pelvic US results OB/Gynecology Comment on above: Pelvic US results Start: 09-17-2025 End: 09-17-2025 ambulatory 09/17/2025 8:30 AM EDT Procedure OB/Gynecology [address] [place] [address] Remote, [employer] [address] [place] [address] Ovarian cyst, left [N83.202] OB/Gynecology Comment on above: Ovarian cyst, left [ N83.202] Start: 09-03-2025 Chlamydia deoxyribonucleic acid detection [facility] Start: 09-03-2025 Hepatitis C antibody measurement [facility] Start: 09-03-2025 Rubella IgG measurement [facility] Start: 09-03-2025 Serologic test for syphilis [facility] Start: 09-03-2025 [facility] Start: 07-22-2025 Influenza vaccination C [facility] Start: 06-12-2025 End: 06-12-2025 Patient encounter procedure 06/12/2025 7:30 AM EDT Office Visit Neurology [address] [place] [address] Adelina Villa PA-C [address] [place] [address] Migraines Neurology Comment on above: Migraines Start: 03-19-2025 End: 03-19-2026 US Pelvis PELVIC US [facility] Anc Imaging Routine Ovarian cyst, left Expected: 03/19/2025, Expires: 03/19/2026 [facility] Work Phone: Comment on above: Expected: 03/19/2025 , Expires: 03/19/2026 Start: 03-08-2025 End: 03-08-2025 ambulatory 03/08/2025 3:30 PM EDT Procedure OB/Gynecology [address] [place] [id number] Remote, [employer] [facility] [address] [place] [address] Abnormal uterine bleeding (AUB) [N93.9] OB/Gynecology Comment on above: Abnormal uterine ble eding (AUB) [N93.9] Start: 02-27-2025 End: 05-29-2025 17-Hydroxyprogesterone [Mass/volume] in Serum or Plasma HYDROXYPROGESTERONE-17 Lab Routine Abnormal uterine bleeding (AUB) Pelvic pain in female Expected: 02/27/2025, Expires: 05/29/2025 [facility] Comment on above: Expected: 02/27/2025 , Expires: 05/29/2025 Start: 02-27-2025 End: 05-29-2025 TESTOSTERONE, FREE AND TOTAL, BY EQUILIBRIUM ULTRAFILTRATION MASS SPECTROMETRY TESTOSTERONE, FREE AND TOTAL, BY EQUILIBRIUM ULTRAFILTRATION MASS SPECTROMETRY Lab Routine Abnormal uterine bleeding (AUB) Pelvic pain in female Expected: 02/27/2025, Expires: 05/29/2025 [facility] Comment on above: Expected: 02/27/2025 , Expires: 05/29/2025 Start: 02-27-2025 End: 02-27-2026 US Pelvis PELVIC US [facility] Anc Imaging Routine Abnormal uterine bleeding (AUB) Pelvic pain in female Expected: 02/27/2025, Expires: 02/27/2026 [facility] Work Phone: Comment on above: Expected: 02/27/2025 , Expires: 02/27/2026 Start: 11-08-2024 End: 11-08-2024 Patient encounter procedure 11/08/2024 2:45 PM EST [facility] [id number] [place], [place] [id number] Rhianna Jameson, TIM [facility] [address] [place] [address] GI Issues Nutrition Therapy Comment on above: GI Issues Start: 11-05-2024 End: 02-04-2025 25-hydroxyvitamin D3 [Mass/volume] in Serum or Plasma [facility] Comment on above: Expected: 11/05/2024 , Expires: 02/04/2025 Start: 11-05-2024 End: 02-04-2025 C reactive protein [Mass/volume] in Serum or Plasma [facility] Comment on above: Expected: 11/05/2024 , Expires: 02/04/2025 Start: 11-05-2024 End: 02-04-2025 CBC panel - Blood by Automated count [facility] Comment on above: Expected: 11/05/2024 , Expires: 02/04/2025 Start: 11-05-2024 End: 02-04-2025 Comprehensive metabolic 2000 panel - Serum or Plasma [facility] Comment on above: Expected: 11/05/2024 , Expires: 02/04/2025 Start: 11-05-2024 End: 02-04-2025 Thyrotropin [Units/volume] in Serum or Plasma [facility] Comment on above: Expected: 11/05/2024 , Expires: 02/04/2025 Start: 2024 Screening for malign ant neoplasm of cervix Cervical Cancer Screening [facility] Start: 07-22-2024 Covid-19 Vaccine ( season) Covid-19 Vaccine () [facility] Start: 07-22-2024 Influenza vaccination Influenza Vacc ine (#1) [facility] Start: 2021 Anxiety Screening Anxiety Screening [facility] Start: 2021 Depression Screening Depression Scre ening [facility] Start: 2021 GC (Gonorrhea) Scree kaylee () GC (Gonorrhea) Screening () [facility] Start: 2021 Hepatitis C screening Hepatitis C Sc juddning [facility] Start: 2021 HIV screening HIV Screening [facility] Start: 2021 Screening for Chlamy warren trachomatis Chlamydia Screening () [facility] Start: 2019 Meningococcal B Vacc ine (1 of 2 - Standard) Meningococcal B Vaccine (1 of 2 - Standard) [facility] Start: 2019 Meningococcal B Vacc ine: Consider Based On Risk (1 of 2 - Patient Seeks Protection) Meningococcal B Vaccine: Consider Based On Risk (1 of 2 - Patient Seeks Protection) [facility] Start: 2018 HPV Vaccine (1 - 3-d ose series) HPV Vaccine (1 - 3-dose series) [facility] Start: 2017 Peds To Adult Transi tion Annual Assessment Peds To Adult Transition Annual Assessment [facility] Start: 2015 Peds To Adult Transi tion Initial Discussion Peds To Adult Transition Initial Discussion [facility] 17-Hydroxyprogestero ne [Mass/volume] in Serum or Plasma HYDROXYPROGESTERONE-17 Lab Routine Abnormal uterine bleeding (AUB) Pelvic pain in female 03/04/2025 9:46 AM EDT [facility] CBC W Auto Different ial panel - Blood [facility] Hemoglobin A1c/Hemoglobin.total in Blood [facility] PAP TEST PAP TEST Lab Eulalia avilez Screening for cervical cancer Screening for human papillomavirus (HPV) 02/27/2025 4:16 PM EDT [facility] TESTOSTERONE, FREE A ND TOTAL, BY EQUILIBRIUM ULTRAFILTRATION MASS SPECTROMETRY TESTOSTERONE, FREE AND TOTAL, BY EQUILIBRIUM ULTRAFILTRATION MASS SPECTROMETRY Lab Routine Abnormal uterine bleeding (AUB) Pelvic pain in female 03/04/2025 9:46 AM EDT [facility] End: 12-05-2025 US Abdomen RUQ US ABD RIGHT UPPER QUADRANT Radiology Routine Bloating 1 Occurrences starting 11/05/2024 until 12/05/2025 [facility] Work Phone: Comment on above: 1 Occurrences starti ng 11/05/2024 until 12/05/2025 Immunizations Immunization Date Immunization Notes Care Provider Fa [facility] 07-09-2016 meningococcal polysaccharide (groups A, C, Y and W-135) diphtheria toxoid conjugate vaccine (MCV4P) NICOLETTE ESQUIVEL DIRECTOR OF CORPORATE STRATEGY-SURVEY RESEARCH ANALYST [facility] 07-09-2016 tetanus toxoid, redu sma diphtheria toxoid, and acellular pertussis vaccine, adsorbed NICOLETTE ESQUIVEL DIRECTOR OF CORPORATE STRATEGY-SURVEY RESEARCH ANALYST [facility]-12-2008 diphtheria, tetanus toxoids and acellular pertussis vaccine NICOLETTE ALVIN DIRECTOR OF CORPORATE STRATEGY-SURVEY RESEARCH ANALYST [facility] 06-12-2008 measles, mumps and rubella virus vaccine Jasen Young DIRECTOR OF CORPORATE STRATEGY.SURVEY RESEARCH ANALYST Work Phone: [facility] 06-12-2008 measles/mumps/rubell a virus vaccine NICOLETTE ALVIN DIRECTOR OF CORPORATE STRATEGY-SURVEY RESEARCH ANALYST [facility] 06-12-2008 poliovirus vaccine, inactivated NICOLETTE ALVIN DIRECTOR OF CORPORATE STRATEGY-SURVEY RESEARCH ANALYST [facility] 06-12-2008 varicella virus vaccine ETHANNANCY HATHAWAY ALVIN DIRECTOR OF CORPORATE STRATEGY-SURVEY RESEARCH ANALYST [facility] 11-23-2006 diphtheria, tetanus toxoids and acellular pertussis vaccine NICOLETTERIVAS ESQUIVEL DIRECTOR OF CORPORATE STRATEGY-SURVEY RESEARCH ANALYST [facility] 11-23-2006 haemophilus influenz ae type b vaccine, PRP-T conjugate NICOLETTERIVAS ESQUIVEL DIRECTOR OF CORPORATE STRATEGY-SURVEY RESEARCH ANALYST [facility] 03-05-2005 DTaP-hepatitis B and poliovirus vaccine NICOLETTE ALVIN DIRECTOR OF CORPORATE STRATEGY-SURVEY RESEARCH ANALYST [facility] 03-05-2005 haemophilus influenz ae type b conjugate and Hepatitis B vaccine NICOLETTENIKO JUAREZMER DIRECTOR OF CORPORATE STRATEGY-SURVEY RESEARCH ANALYST [facility] 03-05-2005 measles, mumps and rubella virus vaccine Jasenrory Gabriel DIRECTOR OF CORPORATE STRATEGY.SURVEY RESEARCH ANALYST Work Phone: [facility] 03-05-2005 measles/mumps/rubell a virus vaccine NICOLETTENIKO JUAREZMER DIRECTOR OF CORPORATE STRATEGY-SURVEY RESEARCH ANALYST [facility] 03-05-2005 varicella virus vaccine ETHAN ICA ALVIN DIRECTOR OF CORPORATE STRATEGY-SURVEY RESEARCH ANALYST [facility] 04-27-2004 DTaP-hepatitis B and poliovirus vaccine NICOLETTE ESQUIVEL DIRECTOR OF CORPORATE STRATEGY-[facility] 04-27-2004 haemophilus influenz ae type b conjugate and Hepatitis B vaccine NICOLETTE ESQUIVEL DIRECTOR OF CORPORATE STRATEGY-SURVEY RESEARCH ANALYST [facility] 04-27-2004 pneumococcal conjuga te vaccine, 7 valent NICOLETTE ESQUIVEL DIRECTOR OF CORPORATE STRATEGY-[facility] 02-24-2004 DTaP-hepatitis B and poliovirus vaccine NICOLETTE ESQUIVEL DIRECTOR OF CORPORATE STRATEGY-SURVEY RESEARCH ANALYST [facility] 02-24-2004 haemophilus influenz ae type b conjugate and Hepatitis B vaccine NICOLETTE ESQUIVEL DIRECTOR OF CORPORATE STRATEGY-[facility] 02-24-2004 pneumococcal conjuga te vaccine, 7 valent NICOLETTE JUAREZMER DIRECTOR OF CORPORATE STRATEGY-SURVEY RESEARCH ANALYST [facility] Payers Date Payer Category Payer Self-pay [id number] 2025 Private Health Insurance [id number] 2023 Private Health Insurance [id number] 2022 Private Health Insurance [id number] 2022 Private Health Insurance [id number]. [id number] 2003 Unknown [id number] 2..840.1.160776.3.579.2.627 2003 Unknown [id number] 2..840.1.994498.3.579.2.627 2003 Unknown [id number] 2.16.840.1.849140.3.579.2.627 2003 Unknown [id number] 2.16.840.1.413853.3.579.2. 2003 Unknown [id number] 2.16.840.1.034279.3.579.2. 2003 Unknown [id number] 2.16.840.1.943902.3.579.2. 2003 Unknown [id number] 2.16.840.1.077691.3.579.2. 2003 Unknown [id number] 2.16.840.1.656025.3.579.2. 2003 Unknown [id number] 2.16.840.1.421406.3.579.2. 2003 Unknown [id number] 2.16.840.1.010366.3.579.2. 2003 Unknown [id number] 2.16.840.1.387713.3.579.2. 2003 Unknown [id number] 2.16.840.1.539919.3.579.2. 2003 Unknown [id number] 2.16.840.1.336135.3.579.2. 2003 Unknown [id number] 2.16.840.1.970693.3.579.2. 2003 Unknown [id number] 2.16.840.1.000319.3.579.2. 2003 Unknown [id number] 2.16.840.1.449830.3.579.2. 2003 Unknown [id number] 2.16.840.1.051496.3.579.2. 2003 Unknown [id number] 2.16.840.1.914905.3.579.2. 2003 Unknown [id number] 2.16.840.1.845463.3.579.2.627 1981 Unknown [id number] 2.16.840.1.256843.3.579.2.479 1981 Unknown [id number] 2.16.840.1.418321.3.579.2.479 1981 Unknown [id number] 2.16840.1.802494.3.579.2.479 1981 Unknown [id number] 2.16840.1.829031.3.579.2.479 1981 Unknown [id number] 2.16840.1.756938.3.579.2.479 1981 Unknown [id number] 2.840.1.524144.3.579.2.479 1981 Unknown [id number] 2.840.1.706734.3.579.2.479 1981 Unknown [id number] 2.840.1.181346.3.579.2.479 1981 Unknown [id number] 2.16840.1.792756.3.579.2.479 1981 Unknown [id number] 2.16840.1.903962.3.579.2.479 Unknown SELF PAY INSURANCE [id number] Unknown [id number] 2.16840.1.717502.3.579.2.462 Unknown [id number] 2.16840.1.128357.3.579.2.462 Unknown [id number] 2.16840.1.372254.3.579.2.462 Social History Date Type Detail Facility Start: 12-10-2020 End: 09-03-2025 Never smoked tobacco (finding) [facility] Sex Assigned At [facility] Start: 12-25-2018 Tobacco smoking stat us [facility] Unknown if ever smoked [facility] Work Phone: Start: 2003 Sex Assigned At Female W [facility] Start: 11-05-2024 End: 07-12-2025 History of Social function [facility] Start: 11-05-2024 End: 07-12-2025 Area Deprivation Index [facility] Start: 10-03-2024 National Score (1-10 0), lower number is lower risk 48 [facility] Start: 2003 Sex assigned at Not on file C [facility] Start: 10-14-2014 Sex Female (finding) [facility] Start: 02-27-2025 Tobacco use and exposure Smoke less tobacco non-user [facility] Start: 02-27-2025 End: 07-12-2025 Alcoholic beverage intake Lifetime non-drinker (finding) [facility] Functional Status Date Assessment Result Facility 11-22-2024 Functional Status Independent [facility] 11-21-2024 Functional Status Standard Safet y ID band on, Allergy Band on, Call device within reach, Bed in low position, Wheels locked, Upper/Half-Length side-rails up, Bedside Cart Locked, Visitor at bedside [facility] 09-06-2024 Functional Status Independent [facility] 09-05-2024 Functional Status Independent [facility] 06-11-2024 Functional Status Standard Safet y ID band on, Call device within reach, Bed in low position, Wheels locked, Upper/Half-Length side-rails up, Bedside Cart Locked, Safety level maintained [facility] 05-08-2024 Functional Status Independent [facility] 05-07-2024 Functional Status Independent [facility] 10-24-2023 Functional Status Assistive Device None A [facility] 09-22-2023 Functional Status Standard Safet y ID band on, Call device within reach, Bed in low position, Wheels locked [facility] 09-11-2023 Functional Status Activity Kemal tance Independent [facility] 09-11-2023 Functional Status Awake, Resting [facility] 09-12-2022 Functional Status Up ad leonel [facility] 09-06-2022 Functional Status Up ad leonel [facility] 09-06-2022 Functional Status [facility] Mental Status Date Assessment Result Facility 11-22-2024 Mental Status Orientation Oriented x 4 [facility] 11-21-2024 Mental Status [facility] 09-06-2024 Mental Status Orientation Oriented x 4 [facility] 09-05-2024 Mental Status [facility] 06-11-2024 Mental Status Orientation Oriented x 4 [facility] 05-08-2024 Mental Status Orientation Oriented x 4 [facility] 05-07-2024 Mental Status [facility] 10-24-2023 Mental Status Oriented x 4 [facility] 09-22-2023 Mental Status Orientation Oriented x 4 [facility] 09-11-2023 Mental Status Orientation Oriented x 4 [facility] 09-11-2023 Mental Status [facility] 09-12-2022 Mental Status Orientation Oriented x 4 [facility] 09-11-2022 Mental Status [facility] 09-06-2022 Mental Status Orientation Oriented x 4 [facility] 09-06-2022 Mental Status [facility] Clinical Notes 09-06-2022 to 09-09-2025 Jasen Gabriel APRN.SURVEY RESEARCH ANALYST - 07/12/2025 9:22 AM EDTPatient Edie Rasheed APRN.SURVEY RESEARCH ANALYST - 05/28/2025 1:25 PM EDTTelephone Encounter - Kristy Eldridge, RN - 05/09/2025 1:43 PM EDT Note Date & Type Note Facility 09-09-2025 Note HNO ID: [id number] Author: SAMM LARSON MD Service: ? Author Type: Physician Type: Progress Notes Filed: 09/09/2025 15:12 Note Text: [facility] Louie is a 20 year old female. Patient presents with: Sinus Problem: sinus pressure, ear pressure, drainage, cough, headache and low grade fever x 1 week, 7 weeks Pt is here with over 1 week hx of facial pressure post nasal drip and a fever per ptr called her OB and told to get treatment due to fever pt is 7 weeks pt also has ear fullness and a cough Sinus Problem Associated symptoms include chills, congestion, coughing, a fever and headaches. Pertinent negatives include no sore throat. Review of Systems Constitutional: Positive for chills and fever. HENT: Positive for congestion, postnasal drip, sinus pressure and sinus pain. Negative for sore throat. Respiratory: Positive for cough. Negative for shortness of breath, wheezing and stridor. Neurological: Positive for headaches. Negative for dizziness. Objective BP 122/74 Pulse 88 Temp 36.3 ?C (97.4 ?F) Resp 16 Wt 86.5 kg (190 lb 11.2 oz) LMP 07/25/2025 (Exact Date) SpO2 97% BMI 36.03 kg/m? Physical Exam Vitals and nursing note reviewed. Constitutional: Appearance: Normal appearance. She is not ill-appearing. HENT: Right Ear: Tympanic membrane and ear canal normal. Left Ear: Tympanic membrane and ear canal normal. Nose: Congestion and rhinorrhea present. Mouth/Throat: Mouth: Mucous membranes are moist. Pharynx: Oropharynx is clear. No oropharyngeal exudate or posterior oropharyngeal erythema. Cardiovascular: Rate and Rhythm: Normal rate and regular rhythm. Heart sounds: Normal heart sounds. Pulmonary: Effort: Pulmonary effort is normal. Breath sounds: Normal breath sounds. No stridor. No wheezing, rhonchi or rales. Musculoskeletal: Cervical back: Normal range of motion and neck supple. Lymphadenopathy: Cervical: No cervical adenopathy. Neurological: Mental Status: She is alert and oriented to person, place, and time. Psychiatric: Mood and Affect: Mood normal. Behavior: Behavior normal. {ASSESSMENT/PLAN: 1. Acute non-recurrent sinusitis, unspecified location - ICD9: 461.9, ICD10: J01.90 Advised pt to call her OB to go over amox treatment also advised pt to hold off antibiotics for another week if she can and also can take antibiotics for only 5 days if wanted she will follow up with her OB - AMOXICILLIN 500 MG CAPSULE Samm Larson MD History and Record Review Systemic symptoms present included: Fever chills Differential Diagnoses - sinusitis is more likely for the following reason(s): suggested by HANDP - viral uri is less likely for the following reason(s): HANDP not suggestive Disposition The patient was discharged. Procedures [facility] 08-28-2025 Note HNO ID: [id number] Author: MCKENZIE CONSTANTINO APRN.PANCHO Service: ? Author Type: Pcb Design Engineer Type: Progress Notes Filed: 08/28/2025 11:57 Note Text: Sanitation Director offered: Patient declines. Elsa Louie is a 20 year old female who presents for problem visit of burning with urination and back pain for the past couple of days. HPI: Patient seen at Urgent Care earlier this week and initially told she has at UTI and started treatment with Keflex PO . She was then called back and told that information was incorrect and she was actually positive for bacterial vaginosis. Patient here today for clarification and retesting. Patient also reports recent positive test- approximately 5 weeks gestation. 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 FAMILY HISTORY Problem Relation Age of Onset Breast Cancer Maternal Grandmother SOCIAL HISTORY[1] Current Outpatient Medications Medication Sig vit/iron fum/folic ac ( 1 + 1 ORAL) Take 1 tablet by mouth once daily. eletriptan (RELPAX) 40 mg tablet Take 1 tablet by mouth as needed for migraine headache (see administration instructions). at the onset of migraine headache. gabapentin (NEURONTIN) 300 mg capsule Take 1 capsule by mouth daily at bedtime for 90 days. (Patient not taking: Reported on 07/12/2025) nortriptyline (PAMELOR) 25 mg capsule 25 mg. (Patient not taking: Reported on 07/12/2025) diphenhydramine HCl (BENADRYL ALLERGY ORAL) Take by mouth. PRN with Nortriptyline (Patient not taking: Reported on 07/12/2025) metFORMIN (GLUCOPHAGE) 500 mg tablet Take 2 tablets by mouth two times a day with meals. Week 1: 500mg with dinner, Week 2: 500mg Twice a day, Week 3: 500 mg with Breakfast and 2 tablets 1000 mg with Dinner, Week 4: 1000mg Twice a day (Patient not taking: Reported on 07/12/2025) No current facility-administered medications for this visit. Allergies As of Date: 08/28/2025 Allergen Noted Reaction IODINATED CONTRAST MEDIA 07/12/2025 Anaphylaxis Fully Assessed 07/12/2025 REVIEW OF SYSTEMS Abdomen: No bloating, early satiety, indigestion, or increased flatulence. No abdominal pain, nausea, vomiting, diarrhea, or constipation. Bladder: POSITIVE FOR DYSURIA/ URGENCY/ FREQUENCY. Breast: No breast lumps, nipple d/c, overlying skin changes, redness or skin retraction. Expanded ROS: N/A Allergies and current medication updated:Yes SENSITIVE EXAM: The sensitive examination was discussed with the Patient or Patient's Authorized Clinic Nurse. As applicable, any other physician, advance practice provider, medical student, or other health professional student that will be observing or involved in the sensitive examination for educational or training purposes was discussed with the Patient or Authorized Clinic Nurse. The Patient or Authorized Clinic Nurse has agreed to proceed with the sensitive examination. (Sensitive examination includes inspection and/or palpation of the breasts, pelvis, prostate and anorectal regions). EXAM: BP 116/76 LMP 07/25/2025 CVA- + tenderness on left side with palpation GENERAL: pleasant, female in no apparent distress HEENT: Normocephalic NECK: Supple, full range of motion, no adenopathy, and thyroid normal DERMATOLOGY: Normal and without lesions BREAST: deferred CHEST: Normal inspiratory effort ABDOMEN: non-tender PELVIC: external genitalia normal, normal Bartholin's glands, urethra, [place]'s glands, no vulvar lesions, no cervical lesions, good vaginal support, physiologic discharge present, normal appearing perineal body and perianal region BIMANUAL: uterus normal size, shape and consistency, no adnexal masses, non-tender, and no cervical motion tenderness NEURO: alert and oriented x3,exam grossly non-focal EXTREMITIES: normal ASSESSMENT AND PLAN: Assessment AND Plan Dysuria Orders: UA DIP, URINE (POC) BACTERIAL CULTURE, URINE Bacterial vaginitis Orders: THU/TRICHOMONAS NAAT BACTERIAL VAGINOSIS NAAT - Urine culture collected and sent - Continue Keflex previously prescribed - Afebrile - Start vitamin daily - Schedule NOB - Will notify patient of results and any changes to plan of care Mceknzie Constantino APRN.CNM [1] Social History Tobacco Use Smoking status: Never Smokeless tobacco: Never Substance Use Topics Alcohol use: Never Drug use: Never [facility] 07-12-2025 Note HNO ID: [id number] Author: JASEN GABRIEL APRN.SURVEY RESEARCH ANALYST Service: ? Author Type: Nurse Practitioner Type: Progress Notes Filed: 07/12/2025 09:28 Note Text: [facility] Hunt Masters is a 19 year old female. Patient presents with: Trauma: L foot outside of pinky toe x this am, possible metal, states stepped on same in home painful, dark area noted Trauma Foreign Body in Foot: - Stepped on a small object this morning, causing significant pain. - Unsure if the object is metal; fiance works with metal. - Attempted to remove the object with tweezers, resulting in bleeding. - Sought assistance from nurses at work, but they were unable to remove it. - Denies previous experience with needle-based numbing; has had dental numbing. - Tetanus vaccination is up to date, received 8 years ago. Review of Systems Musculoskeletal: (+) foot pain Skin: (+) foot bleeding Objective BP 116/81 Pulse 68 Temp 36.4 ?C (97.6 ?F) Resp 20 Wt 80 kg (176 lb 5.9 oz) LMP 06/28/2025 (Exact Date) SpO2 100% BMI 33.32 kg/m? PAST MEDICAL HISTORY Diagnosis Date Uterine polyp No past surgical history on file. ALLERGIES Iodinated Contrast Media MEDICATIONS vit/iron fum/folic ac ( 1 + 1 ORAL) Take 1 tablet by mouth once daily. eletriptan (RELPAX) 40 mg tablet Take 1 tablet by mouth as needed for migraine headache (see administration instructions). at the onset of migraine headache. gabapentin (NEURONTIN) 300 mg capsule Take 1 capsule by mouth daily at bedtime for 90 days. (Patient not taking: Reported on 07/12/2025) nortriptyline (PAMELOR) 25 mg capsule 25 mg. (Patient not taking: Reported on 07/12/2025) diphenhydramine HCl (BENADRYL ALLERGY ORAL) Take by mouth. PRN with Nortriptyline (Patient not taking: Reported on 07/12/2025) metFORMIN (GLUCOPHAGE) 500 mg tablet Take 2 tablets by mouth two times a day with meals. Week 1: 500mg with dinner, Week 2: 500mg Twice a day, Week 3: 500 mg with Breakfast and 2 tablets 1000 mg with Dinner, Week 4: 1000mg Twice a day (Patient not taking: Reported on 07/12/2025) FAMILY HISTORY Problem Relation Age of Onset Breast Cancer Maternal Grandmother SOCIAL HISTORY[1] Physical Exam Constitutional: General: She is not in acute distress. Appearance: Normal appearance. She is normal weight. She is not ill-appearing or toxic-appearing. Pulmonary: Effort: Pulmonary effort is normal. Musculoskeletal: Feet: Feet: Comments: Visual 1 cm dark kobe in left pinky toe Metal, removed intact Neurological: Mental Status: She is alert. { 1. Superficial foreign body of left foot, initial encounter (S94.483G) - Foreign body removed under local anesthesia. - Tetanus vaccination up to date. - Advised to keep wound clean and dry; no antibiotics indicated at this time. Full removal, patient tolerated well. and Recording using Zarpo software for draft documentation of the visit was discussed with the patient/authorized automobile rental representative; all questions welcomed and answered. Patient/authorized automobile rental representative agreed to proceed MDM Eye/Body Foreign body removal Date/Time: 07/12/2025 9:22 AM Performed by: Jasen Gabriel APRN.SURVEY RESEARCH ANALYST Authorized by: Jasen Gabriel APRN.SURVEY RESEARCH ANALYST Location: Location: Toe Toe location: L little toe Depth: Subcutaneous Pre-procedure details: Imaging: None Neurovascular status: intact Preparation: Patient was prepped and draped in usual sterile fashion Medication: 1 mL lidocaine 1%-EPINEPHrine 1:100,000 1 %-1:100,000 Procedure details: Localization method: Visualized Dissection of underlying tissues: no Bloodless field: no Intact foreign body removal: yes Post-procedure details: Neurovascular status: intact Confirmation: No additional foreign bodies on visualization Skin closure: None Dressing: Adhesive bandage Patient tolerance of procedure: Tolerated well, no immediate complications [1] Social History Tobacco Use Smoking status: Never Smokeless tobacco: Never Substance Use Topics Alcohol use: Never Drug use: Never [facility] 07-12-2025 History of Presen t illness Narrative Associated Order(s): Eye/Body Foreign body removal Post-Procedure Diagnose(s): Superficial foreign body of left foot, initial encounter Images from the original note were not included. [facility] Louie is a 19 year old female. Patient presents with: Trauma: L foot outside of pinky toe x this am, possible metal, states stepped on same in home painful, dark area noted Trauma Foreign Body in Foot: - Stepped on a small object this morning, causing significant pain. - Unsure if the object is metal; [employer] works with metal. - Attempted to remove the object with tweezers, resulting in bleeding. - Sought assistance from nurses at work, but they were unable to remove it. - Denies previous experience with needle-based numbing; has had dental numbing. - Tetanus vaccination is up to date, received 8 years ago. Review of Systems Musculoskeletal: (+) foot pain Skin: (+) foot bleeding Objective BP 116/81 Pulse 68 Temp 36.4 C (97.6 F) Resp 20 Wt 80 kg (176 lb 5.9 oz) LMP 06/28/2025 (Exact Date) SpO2 100% BMI 33.32 kg/m PAST MEDICAL HISTORY Diagnosis Date Uterine polyp No past surgical history on file. ALLERGIES Iodinated Contrast Media MEDICATIONS vit/iron fum/folic ac ( 1 + 1 ORAL) Take 1 tablet by mouth once daily. eletriptan (RELPAX) 40 mg tablet Take 1 tablet by mouth as needed for migraine headache (see administration instructions). at the onset of migraine headache. gabapentin (NEURONTIN) 300 mg capsule Take 1 capsule by mouth daily at bedtime for 90 days. (Patient not taking: Reported on 07/12/2025) nortriptyline (PAMELOR) 25 mg capsule 25 mg. (Patient not taking: Reported on 07/12/2025) diphenhydramine HCl (BENADRYL ALLERGY ORAL) Take by mouth. PRN with Nortriptyline (Patient not taking: Reported on 07/12/2025) metFORMIN (GLUCOPHAGE) 500 mg tablet Take 2 tablets by mouth two times a day with meals. Week 1: 500mg with dinner, Week 2: 500mg Twice a day, Week 3: 500 mg with Breakfast and 2 tablets 1000 mg with Dinner, Week 4: 1000mg Twice a day (Patient not taking: Reported on 07/12/2025) FAMILY HISTORY Problem Relation Age of Onset Breast Cancer Maternal Grandmother SOCIAL HISTORY[1] Physical Exam Constitutional: General: She is not in acute distress. Appearance: Normal appearance. She is normal weight. She is not ill-appearing or toxic-appearing. Pulmonary: Effort: Pulmonary effort is normal. Musculoskeletal: Feet: Feet: Comments: Visual 1 cm dark kobe in left pinky toe Metal, removed intact Neurological: Mental Status: She is alert. { 1. Superficial foreign body of left foot, initial encounter (S90.124X) - Foreign body removed under local anesthesia. - Tetanus vaccination up to date. - Advised to keep wound clean and dry; no antibiotics indicated at this time. Full removal, patient tolerated well. and Recording using Zarpo software for draft documentation of the visit was discussed with the patient/authorized automobile rental representative; all questions welcomed and answered. Patient/authorized automobile rental representative agreed to proceed MDM Eye/Body Foreign body removal Date/Time: 07/12/2025 9:22 AM Performed by: Jasen Gabriel APRN.SURVEY RESEARCH ANALYST Authorized by: Jasen Gabriel APRN.SURVEY RESEARCH ANALYST Location: Location: Toe Toe location: L little toe Depth: Subcutaneous Pre-procedure details: Imaging: None Neurovascular status: intact Preparation: Patient was prepped and draped in usual sterile fashion Medication: 1 mL lidocaine 1%-EPINEPHrine 1:100,000 1 %-1:100,000 Procedure details: Localization method: Visualized Dissection of underlying tissues: no Bloodless field: no Intact foreign body removal: yes Post-procedure details: Neurovascular status: intact Confirmation: No additional foreign bodies on visualization Skin closure: None Dressing: Adhesive bandage Patient tolerance of procedure: Tolerated well, no immediate complications [1] Social History Tobacco Use Smoking status: Never Smokeless tobacco: Never Substance Use Topics Alcohol use: Never Drug use: Never documented in this encounter [facility] 05-28-2025 Instructions Edie Aleman APRN.CNP - 05/28/2025 2:12 PM EDT Preventative: Gabapentin 300 mg (1 tablet) at bedtime. If you wake up feeling tired, please take Gabapentin 2 hours earlier than bedtime. Abortive: Eletriptan 40 mg: Take 1 tablet by mouth as needed for migraine headache (see administration instructions). at the onset of migraine headache. Conservative Measures: Make all postural changes from lying to sitting or sitting to standing slowly. Drink to 2.0 -2.5 L of fluids per day. With bad symptoms, drink 500 cc of water quickly. This will result in an increased blood pressure within 5 minutes of drinking the water. The effect will last up to one hour and may improve orthostatic intolerance. Increase sodium in the diet to 3 - 5 g per day. If not helpful and BP is stable, may try 5-7 g per day. IF BLOOD PRESSURE RISES OR IS RISING CUT BACK ON SALT LOADING. Liquid IV, Nuun tabs, powerade / gatorade (zero formulations are OK), pedialyte, LMNT, Drip drop, Body Armor are all OK. Limit frequent use of electrolyte supplements with added B vitamins. Avoid large meals which can cause low blood pressure during digestion. It is better to eat smaller meals more often than three large meals. Avoid alcohol. Alcohol and cause blood to pool in the legs which may worsen low blood pressure reactions when standing. Avoid excessive caffeine intake as it may increase urine production and reduce blood volume. Perform lower extremity exercises to improve strength of the leg muscles. This will help prevent blood from a pooling in the legs when standing and walking. Preferred exercises are walking, squatting or stationery bicycling. An increased exercise duration by weekly should be considered. Use custom fitted elastic support stockings. These will reduce a tendency for blood to pool in the legs when standing and may improve orthostatic intolerance. Please try 30-40 mmHg compression. Raise the head of the bed by 6 to 10 inches. The entire bed must be at an angle. Raising only the head portion of the bed at waist level or using pillows will not be effective. Raising the head of the bed will reduce urine formation overnight and there will be more volume in the circulation in the morning. Use physical counter maneuvers such as leg crossing, or leg raising and resting the leg on a chair. These maneuvers increase blood pressure and can improve orthostatic intolerance quickly and transiently. GABAPENTIN Most common side effect of gabapentin is dizziness / drowsiness in the first few weeks. Some studies have showed increased emotional lability, and sometimes even suicidal thoughts. This is a low risk but please let me know immediately if this is a side effect you experience. Like all medications, there is a risk of allergic reaction. Headache Preventive Treatment: Please keep in mind that it takes 4-6 weeks for the medication to start working well and 2-3 months at the appropriate dose before deciding if it will be useful or not. If it is not helping at all by this time, then we will discuss other medications to try. Supplements may take 3-6 months until you see full effect. Natural supplements: Magnesium Oxide 00 mg at bed Coenzyme Q10 300 mg in AM Vitamin B2- 200 mg twice a day Feverfew 50 mg twice a day Vitamins and herbs that show potential Magnesium: Magnesium (250 mg twice a day or 500 mg at bed) has a relaxant effect on smooth muscles such as blood vessels. Individuals suffering from frequent or daily headache usually have low magnesium levels which can be increase with daily supplementation of 400-750 mg. Three trials found 40-90% average headache reduction when used as a preventative. Magnesium also demonstrated the benefit in menstrually related migraine. Magnesium is part of the messenger system in the serotonin cascade and it is a good muscle relaxant. It is also useful for constipation which can be a side effect of other medications used to treat migraine. Good sources include nuts, whole grains, and tomatoes. Magnesium comes in many different forms: Magnesium glycinate is a good choice for those with a sensitive stomach who have gastrointestinal side effects such as diarrhea with other forms of magnesium. It is anecdotally also helpful with anxiety and sleep. Magnesium threonate also has low risk of gastrointestinal side effects and anecdotally helpful with cognitive function and brain fog symptoms. Magnesium malate has low gastrointestinal side effects and is reportedly more energizing and anecdotally often helpful in fibromyalgia and chronic fatigue syndrome. Magnesium citrate is one of the most studied, popular, and well-absorbed forms of magnesium. It can also be mixed easily with liquids if you can't take pills. However, it comes with a higher risk of diarrhea and gastrointestinal side effects, although this could be helpful for those with constipation. Magnesium oxide is also well studied, cheap, and often used for heartburn and indigestion. However, it is not well absorbed and can have some laxative side effects as well, so can also be helpful for constipation. Riboflavin (vitamin B 2) 200 mg twice a day. This vitamin assists nerve cells in the production of ATP a principal energy storing molecule. It is necessary for many chemical reactions in the body. There have been at least 3 clinical trials of riboflavin using 400 mg per day all of which suggested that migraine frequency can be decreased. All 3 trials showed significant improvement in over half of migraine sufferers. The supplement is found in bread, cereal, milk, meat, and poultry. Most Americans get more riboflavin than the recommended daily allowance, however riboflavin deficiency is not necessary for the supplements to help prevent headache. Feverfew: Feverfew is a common garden herb ambler to [place] and popular in [facility] as a treatment for disorders typically controlled by aspirin. The mechanism of action is unknown but is believed to be related to a chemical called parthenolide which helps the body use serotonin more effectively. Serotonin helps prevent migraine and assists with resolution when it occurs. Parthenolide also inhibits the release of histamine which is linked to pain and inflammation. Consistency of active ingredients in different products can be a problem. Some formulations don't have the active ingredient (parthenolide) that prevents migraine. A parthenolide content of 0.2% is generally recommended. Typical dosage is one capsule 3 times a day. Coenzyme Q10: This is present in almost all cells in the body and is critical component for the conversion of energy. Recent studies have shown that a nutritional supplement of CoQ10 can reduce the frequency of migraine attacks by improving the energy production of cells as with riboflavin. Doses of 150 mg twice a day have been shown to be effective. Melatonin: Increasing evidence shows correlation between melatonin secretion and headache conditions. Melatonin supplementation has decreased headache intensity and duration. It is widely used as a sleep aid. Sleep is natures way of dealing with migraine. A dose of 3 mg is recommended to start for headaches including cluster headache. Higher doses up to 15 mg has been reviewed for use in Cluster headache and have been used. The rationale behind using melatonin for cluster is that many theories regarding the cause of Cluster headache center around the disruption of the normal circadian rhythm in the brain. This helps restore the normal circadian rhythm. Alexandr: Alexandr has a small amount of antihistamine and anti-inflammatory action which may help headache. It is primarily used for nausea and may aid in the absorption of other medications. HEADACHE DIET: Foods and beverages which may trigger migraine Note that only 20% of headache patients are food sensitive. You will know if you are food sensitive if you get a headache consistently 20 minutes to 2 hours after eating a certain food. Only cut out a food if it causes headaches, otherwise you might remove foods you enjoy! What matters most for diet is to eat a well balanced healthy diet full of vegetables and low fat protein, and to not miss meals. Chocolate, other sweets ALL cheeses except cottage and cream cheese Dairy products, yogurt, sour cream, ice cream Liver Meat extracts (Bovril, Marmite, meat tenderizers) Meats or fish which have undergone aging, fermenting, pickling or smoking. These include: Hotdogs,salami,Lox,sausage, mortadellas,smoked salmon, pepperoni, Pickled webb Pods of broad michaels (Northern Irish beans, Indonesian pea pods, Austrian (heather) beans, dc and navy beans Ripe avocado, ripe banana Yeast extracts or active yeast preparations such as Saenz's or Andrew's (commercial bakes goods are permitted) Tomato based foods, pizza (lasagna, etc.) MSG (monosodium glutamate) is disguised as many things; look for these common aliases: Monopotassium glutamate Autolysed yeast Hydrolysed protein Sodium caseinate flavorings all natural preservatives Nutrasweet Avoid all other foods that convincingly provoke headaches. Headache Prevention Strategies: 1. Maintain a headache diary; learn to identify and avoid triggers. Common triggers include: Emotional triggers: Emotional/Upset family or friends Emotional/Upset occupation Business reversal/success Anticipation anxiety Crisis-serious Post-crisis periodNew job/position Physical triggers: Vacation Day Weekend Strenuous Exercise High Altitude Location New Move Menstrual Day Physical Illness Oversleep/Not enough sleep Weather changes Light: Photophobia or light sesnitivity treatment involves a balance between desensitization and reduction in overly strong input. Use dark polarized glasses outside, but not inside. Avoid bright or fluorescent light, but do not dim environment to the point that going into a normally lit room hurts. Consider FL-41 tint lenses, which reduce the most irritating wavelengths without blocking too much light. These can be obtained at [employer] or [employer]: see list above. 2. Limit use of acute treatments ([id number] medications, triptans, etc.) to no more than 2 days per week or 10 days per month to prevent medication overuse headache (rebound headache). 3. Follow a regular schedule (including weekends and holidays): Don't skip meals. Eat a balanced diet. 8 hours of sleep nightly. Minimize stress. Exercise 30 minutes per day. Being overweight is associated with a 5 times increased risk of chronic migraine. Keep well hydrated and drink 6-8 glasses of water per day. 4. Initiate non-pharmacologic measures at the earliest onset of your headache. Rest and quiet environment. Relax and reduce stress. [id number] is a free kimber that can instruct you on some simple relaxtion and breathing techniques. Http://[employer] is a free website that provides teaching videos on relaxation. Also, there are many apps that can be downloaded for mindful relaxation. An kimber called YOGA NIDRA will help walk you through mindfulness. Cold compresses. 5. Don't wait!! Take the maximum allowable dosage of prescribed medication at the first sign of migraine. 6. Compliance: Take prescribed medication regularly as directed and at the first sign of a migraine. 7. Communicate: Call your physician when problems arise, especially if your headaches change, increase in frequency/severity, or become associated with neurological symptoms (weakness, numbness, slurred speech, etc.). 8. Headache/pain management therapies: Consider various complementary methods, including medication, behavioral therapy, psychological counselling, biofeedback, massage therapy, acupuncture, dry needling, and other modalities. Such measures may reduce the need for medications. Counseling for pain management, where patients learn to function and ignore/minimize their pain, seems to work very well. 9. Recommend changing family's attention and focus away from patient's headaches. Instead, emphasize daily activities. If first question of day is 'How are your headaches/Do you have a headache today?', then patient will constantly think about headaches, thus making them worse. Goal is to re-direct attention away from headaches, toward daily activities and other distractions. 10. Helpful Websites: www.AmericanHeadacheSociety.org www.migrainetrust.org www.headaches.org www.migraine.org.uk www.achenet.org 11. HEADACHE EXPECTATIONS: There are many types of headaches, and only a rare few in which complete relief can be expected. In general, there is no cure for headache, especially migraine based headaches. There is nothing available that completely prevents headaches from occurring, breaking through, or having periodic flare-ups and fluctuations. Regardless of what you are using on a daily basis for prevention, episodic headaches should still be expected, and periods where frequency may escalate and fluctuate are unavoidable. There is no quick fix for most headaches. Furthermore, the longer you have had high frequency headaches (such as chronic daily headache), the longer it will likely take to expect any improvement. In fact, some people will never improve, regardless of how many medications or other treatments we try. Our treatment strategy is to evaluate for possible causes of your headache, although testing is usually always normal, even in cases of daily continuous headaches for years. Most types of headache such as migraine are electrical brain disorders (similar to how epilepsy is an electrical brain disorders). Therefore, there is no testing that will reveal this dysfunctional electrical circuitry such on MRI, or other testing. We try to find a medication that may help lessen the frequency and/or severity of your headaches. The goal is not to completely stop them from happening, although if that happens, great! Different people respond to different medications, and some people just don't respond to anything, so it's usually a matter of trying different options. We can not predict if or when exactly you will respond to a treatment that we provide. Preventive headache medications take 4-6 weeks to start working, and 2-3 months to see full effect, assuming you reach an effective dose. Therefore, calling or messaging frequently because you have a headache flare prior to the 3 month abelardo is unlikely to change anything, and unfortunately there is nothing available that will expedite this, so please try to avoid this. Our recommendation will generally be to give it adequate time first. If you are unable to wait it out for medications to work, we can also try IV infusions for some temporary relief. O In general, the best that preventive medications or other treatments (including Botox) are able to offer in migraine management (variable in other headache types) is a 50% improvement in frequency and/or severity of headache. That is our goal, and any additional benefit is considered a bonus. Some people do significantly better than this, others do not get close to this. Therefore, if your headaches are not improving by at least 3 months on your preventive strategy, contact us and we can discuss further adjustments. Keep in mind that complete headache cure is not a realistic expectation. Our Team: The nursing staff, and medical assistants are a major part of YOUR TREATMENT TEAM and will be handling your phone calls, Microstimt Messages and inquiries, if any. Unless explicitly told otherwise at the time of your office visit, your study results and ensuing treatment plans will be released via Fanvibe and discussed during your follow-up appointment. MyChart: Please ask the schedulers to give you an activation code. The main way of communication is by Microstimt rather than phone lines, so if you have not signed up, please do so. Microstimt is also the way that you can review your labs and testing. We are not able to contact everyone to tell them results are normal. If you do not hear back from us regarding testing you have had, it should be considered normal or within normal range. If you have any questions about the results, you are free to message us. Fanvibe is meant for simple questions regarding medications, possible side effects, or other simple straight forward questions in limited sentences, rather than multiple paragraphs of discussion. Fanvibe is not meant for, or efficient for these complex questions, extensive questions, extensive medication adjustments, complex new symptoms or concerns. These issues beyond simple questions require a follow up visit with myself, one of our physician assistants, nurse practitioners, or a Virtual Visit via computer or smart phone, as detailed further down. Refills: Please pay attention to when your refills will need to be renewed. Due to the volume of phone calls daily, this could potentially take a few days, although we certainly try to honor your refill requests as soon as we can. You should call at least 1 week in advance of needing a refill to ensure you do not run out of medication. Keep in mind that refill requests on Fridays may not be filled until the following week. In regards to blood work, testing, and radiology reports these are released automatically to the patients. We do not comment on most testing on [facility] in a message or commentary unless there is a concern. You will not receive a message from me of the result unless there is a specific concern of the result I need you to address further in care with us or your primary medical team. Make sure to check your my chart email or kimber. As an international referral center for syncope, autonomic dysfunction, general neurology, headache care, neuromuscular disease, and other related conditions, seeing patients from across the world, we do not have the resource of time or staffing to address inquiries for accommodations. As such, we do not provide or complete requests for work accommodations, FMLA, disability, or other such forms. We recommend seeking guidance through your primary care provider for these requests. We are happy to provide our office notes from your visits and other tests or evaluations performed through our clinic, which can be made available upon request to assist you with this process. documented in this encounter [facility] 05-28-2025 Note HNO ID: [id number] Author: EDIE ALEMAN APRN.CNP Service: ? Author Type: Nurse Practitioner Type: Progress Notes Filed: 05/28/2025 14:28 Note Text: Virtual Visit New Encounter May 28, 2025 Elsa Louie I have communicated my name and active licensure. The patient's identity and physical location were verified at the time of this visit. Either the patient or their legal automobile rental representative has been informed of the risks and benefits of -- and alternatives to -- treatment through a remote evaluation and consents to proceed with the evaluation remotely. Consultation requested by Nicolette Neumann APRN.CNM for an opinion regarding Migraine with aura and without status migrainosus, not intractable [G43.109 (ICD-10-CM)] . My final recommendations will be communicated back to the requesting physician by way of shared Medical record or letter to requesting physician via [place] mail. Recording using ambient [employer] software for draft documentation of the visit was discussed with the patient/authorized automobile rental representative; all questions welcomed and answered. Patient/authorized automobile rental representative agreed to proceed CC: Headache History: Elsa Louie is a 19 year old year old, woman who has a past medical history of Uterine polyp. Current Headache treatment Preventative: none Abortive: Onset: Chronic Migraines: - Severe migraines x9 months, causing significant functional impairment. - Migraines began worsening 3 years ago, with severe episodes starting 9 months ago. - Describes migraines as excruciating, causing inability to work. - Associated symptoms: photophobia, numbness, and swelling of the right side of the face. - Recent ER visit due to severe migraine with facial numbness and swelling; CT scan performed within the last 1-2 months was reportedly normal. - Migraines have decreased in frequency after starting a carnivore diet 3 weeks ago, but still experiencing a constant dull headache. - Dull headache described as squeezing the life out of my head, present /, without visual disturbances or facial numbness. - Headaches are migratory, starting in one area and moving around the head. - Photophobia present, but no longer a trigger or relief for migraines. - Denies current use of nortriptyline; discontinued 2-3 weeks ago due to lack of efficacy. - Previously tried sumatriptan without relief. - Prescribed Emgality but hesitant to use due to concerns about injections and side effects. - High water intake and salt supplementation (Noon tablets, pickles) for POTS management. - Family history of migraines; aunt reports sugar as a trigger. - No current use of magnesium supplements; stopped due to worsening headaches. - Adequate sleep reported; no issues with insomnia. POTS: - Diagnosed with POTS; previously tried metoprolol and atenolol with adverse effects (blackouts and nausea, respectively). - Discontinued beta-blockers due to side effects. Total headache days per month: daily Headache free days: No Duration of attacks: continuously Severity of headaches? mild Location: holocephalic. Aura: None Accompanying symptoms: numbness to right side of face, dizzy, photophobia Quality:dull. Worse with activity: Yes Most common time of day for headache to begin:anytime. Positional changes: No Prodrome:none. Triggers: foods (sugar). Cough/sneeze/valsalva as trigger: none Migraine or other headaches in the family: aunt Brain tumors in the family: No Studies to Review: MRI Report - Impression Only No resulted procedures found. CT Brain Report - Impression No resulted procedures found. Prior Therapies Nortriptyline- not effective Propranolol- not effective Atenolol Emgality Sumatriptan- not effective SH: ROS: GENERAL: No weight loss, malaise or fevers HEENT: Negative for frequent or significant headaches, No changes in hearing or vision, no nose bleeds or other nasal problems NECK: Negative for lumps, goiter, pain and significant neck swelling CARDIOVASCULAR: Negative for chest pain, leg swelling, hypertension, CHF or palpitations MUSCULOSKELETAL: Negative for joint pain or swelling, back pain or muscle pain PSYCH: Negative for sleep disturbance, mood disorder and recent psychosocial stressors} NEURO: SEE HPI Current Outpatient Medications Medication Sig nortriptyline (PAMELOR) 25 mg capsule 25 mg. diphenhydramine HCl (BENADRYL ALLERGY ORAL) Take by mouth. PRN with Nortriptyline metFORMIN (GLUCOPHAGE) 500 mg tablet Take 2 tablets by mouth two times a day with meals. Week 1: 500mg with dinner, Week 2: 500mg Twice a day, Week 3: 500 mg with Breakfast and 2 tablets 1000 mg with Dinner, Week 4: 1000mg Twice a day No current facility-administered medications for this visit. PAST MEDICAL HISTORY Diagnosis Date Uterine polyp ALLERGIES No Known Allergies Examination: Vital Signs: LMP 05/03/2025 (Exact Date) General: well a (more content not included)... [facility] 05-28-2025 History of Presen t illness Narrative Virtual Visit New Encounter May 28, 2025 Elsa Louie I have communicated my name and active licensure. The patient's identity and physical location were verified at the time of this visit. Either the patient or their legal automobile rental representative has been informed of the risks and benefits of -- and alternatives to -- treatment through a remote evaluation and consents to proceed with the evaluation remotely. Consultation requested by Nicolette Neumann APRN.CNM for an opinion regarding Migraine with aura and without status migrainosus, not intractable [G43.109 (ICD-10-CM)] . My final recommendations will be communicated back to the requesting physician by way of shared Medical record or letter to requesting physician via [place] mail. Recording using [employer] software for draft documentation of the visit was discussed with the patient/authorized automobile rental representative; all questions welcomed and answered. Patient/authorized automobile rental representative agreed to proceed CC: Headache History: Elsa Louie is a 19 year old year old, woman who has a past medical history of Uterine polyp. Current Headache treatment Preventative: none Abortive: Onset: Chronic Migraines: - Severe migraines x9 months, causing significant functional impairment. - Migraines began worsening 3 years ago, with severe episodes starting 9 months ago. - Describes migraines as excruciating, causing inability to work. - Associated symptoms: photophobia, numbness, and swelling of the right side of the face. - Recent ER visit due to severe migraine with facial numbness and swelling; CT scan performed within the last 1-2 months was reportedly normal. - Migraines have decreased in frequency after starting a carnivore diet 3 weeks ago, but still experiencing a constant dull headache. - Dull headache described as squeezing the life out of my head, present 24/7, without visual disturbances or facial numbness. - Headaches are migratory, starting in one area and moving around the head. - Photophobia present, but no longer a trigger or relief for migraines. - Denies current use of nortriptyline; discontinued 2-3 weeks ago due to lack of efficacy. - Previously tried sumatriptan without relief. - Prescribed Emgality but hesitant to use due to concerns about injections and side effects. - High water intake and salt supplementation (Noon tablets, pickles) for POTS management. - Family history of migraines; aunt reports sugar as a trigger. - No current use of magnesium supplements; stopped due to worsening headaches. - Adequate sleep reported; no issues with insomnia. POTS: - Diagnosed with POTS; previously tried metoprolol and atenolol with adverse effects (blackouts and nausea, respectively). - Discontinued beta-blockers due to side effects. Total headache days per month: daily Headache free days: No Duration of attacks: continuously Severity of headaches? mild Location: holocephalic. Aura: None Accompanying symptoms: numbness to right side of face, dizzy, photophobia Quality:dull. Worse with activity: Yes Most common time of day for headache to begin:anytime. Positional changes: No Prodrome:none. Triggers: foods (sugar). Cough/sneeze/valsalva as trigger: none Migraine or other headaches in the family: aunt Brain tumors in the family: No Studies to Review: MRI Report - Impression Only No resulted procedures found. CT Brain Report - Impression No resulted procedures found. Prior Therapies Nortriptyline- not effective Propranolol- not effective Atenolol Emgality Sumatriptan- not effective SH: ROS: GENERAL: No weight loss, malaise or fevers HEENT: Negative for frequent or significant headaches, No changes in hearing or vision, no nose bleeds or other nasal problems NECK: Negative for lumps, goiter, pain and significant neck swelling CARDIOVASCULAR: Negative for chest pain, leg swelling, hypertension, CHF or palpitations MUSCULOSKELETAL: Negative for joint pain or swelling, back pain or muscle pain PSYCH: Negative for sleep disturbance, mood disorder and recent psychosocial stressors} NEURO: SEE HPI Current Outpatient Medications Medication Sig nortriptyline (PAMELOR) 25 mg capsule 25 mg. diphenhydramine HCl (BENADRYL ALLERGY ORAL) Take by mouth. PRN with Nortriptyline metFORMIN (GLUCOPHAGE) 500 mg tablet Take 2 tablets by mouth two times a day with meals. Week 1: 500mg with dinner, Week 2: 500mg Twice a day, Week 3: 500 mg with Breakfast and 2 tablets 1000 mg with Dinner, Week 4: 1000mg Twice a day No current facility-administered medications for this visit. PAST MEDICAL HISTORY Diagnosis Date Uterine polyp ALLERGIES No Known Allergies Examination: Vital Signs: LMP 05/03/2025 (Exact Date) General: well appearing, in no acute distress, alert Pain Behaviors: no pain behaviors observed Neurological: Mental Status: Alert and oriented to person, place and time. Affect is normal and appropriate. Speech is spontaneous and fluent without dysarthria, normal in rate, volume and articulation, and clear, coherent, and relevant. 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 Attention span and concentration are excellent. HEENT: Head is normocephalic and features were symmetric. Musculoskeletal: No gross joint deformities. Cranial Nerves: III, IV, -EOMI: full. VII-face is symmetric without evidence of weakness. VIII-hearing intact. Impression: 1. Chronic daily headache (R51.9) 2. Migraine without aura and without status migrainosus, not intractable (G43.009) - Chronic daily headaches with associated photophobia; migraines have been progressively worsening over the past three years, with significant exacerbation in the last nine months. - Previous treatments include nortriptyline, propranolol, and sumatriptan, which were ineffective. - CT scan performed within the last two months was normal. - Initiated gabapentin at bedtime to prevent headaches and assist with sleep. - Prescribed eletriptan 40 mg to be taken at the onset of a migraine. - Follow-up in four months to assess efficacy of treatment. 3. Postural orthostatic tachycardia syndrome (POTS) (G90.A) - History of POTS with previous trials of metoprolol and atenolol, both discontinued due to adverse effects. - Patient maintains adequate hydration and salt intake, including the use of Noon tablets and high-salt foods like pickles. - Continue current hydration and salt management. Plan: Discussed all options for treatment. Preventative: Gabapentin 300 mg (1 tablet) at bedtime. If you wake up feeling tired, please take Gabapentin 2 hours earlier than bedtime. Abortive: Eletriptan 40 mg: Take 1 tablet by mouth as needed for migraine headache (see administration instructions). at the onset of migraine headache. Conservative Measures: Make all postural changes from lying to sitting or sitting to standing slowly. Drink to 2.0 -2.5 L of fluids per day. With bad symptoms, drink 500 cc of water quickly. This will result in an increased blood pressure within 5 minutes of drinking the water. The effect will last up to one hour and may improve orthostatic intolerance. Increase sodium in the diet to 3 - 5 g per day. If not helpful and BP is stable, may try 5-7 g per day. IF BLOOD PRESSURE RISES OR IS RISING CUT BACK ON SALT LOADING. Liquid IV, Nuun tabs, powerade / gatorade (zero formulations are OK), pedialyte, LMNT, Drip drop, Body Armor are all OK. Limit frequent use of electrolyte supplements with added B vitamins. Avoid large meals which can cause low blood pressure during digestion. It is better to eat smaller meals more often than three large meals. Avoid alcohol. Alcohol and cause blood to pool in the legs which may worsen low blood pressure reactions when standing. Avoid excessive caffeine intake as it may increase urine production and reduce blood volume. Perform lower extremity exercises to improve strength of the leg muscles. This will help prevent blood from a pooling in the legs when standing and walking. Preferred exercises are walking, squatting or stationery bicycling. An increased exercise duration by weekly should be considered. Use custom fitted elastic support stockings. These will reduce a tendency for blood to pool in the legs when standing and may improve orthostatic intolerance. Please try 30-40 mmHg compression. Raise the head of the bed by 6 to 10 inches. The entire bed must be at an angle. Raising only the head portion of the bed at waist level or using pillows will not be effective. Raising the head of the bed will reduce urine formation overnight and there will be more volume in the circulation in the morning. Use physical counter maneuvers such as leg crossing, or leg raising and resting the leg on a chair. These maneuvers increase blood pressure and can improve orthostatic intolerance quickly and transiently. Follow-up: 4 months Approximately 30 minutes was spent with the patient, of which more than 50% of the time was spent in counseling and/or coordinating . The patient understands and agrees with the plan of care outlined. I performed this clinical encounter by utilizing a real time telehealth video connection between my location and the patient's location. The patient's location was confirmed during the visit. I obtained verbal consent from the patient to perform this clinical encounter utilizing video and prepared the patient by answering any questions they had about the telehealth. I addressed patient's questions and concerns in detail in regards to the chief complaint today in addition to all other comorbidities. Edie Aleman APRN.[facility] 05/28/2025 PROMIS Global Health Physical Health Summary Physical health: Fair Everyday physical activity, ability: Mostly Fatigue: Moderate Pain level: 6 General health: Fair Social activities/roles, ability: Good Physical Health T-Score 39.8 (Fair) Physical Health Percentile 15 PROMIS Global Health Mental Health Summary Quality of life: Good Mental health (mood,thinking): Good Social satisfaction: Good Emotional problems (anxious,depressed): Rarely Mental Health T-Score 45.8 (Good) Mental Health Percentile 34 Percentiles provide an indication of how a patient's score ranks in relation to the [place] general population. > 31st percentile is within normal limits or better *< 31st percentile is at least SD worse than population, which may be clinically relevant < 16th percentile is at least 1 SD worse than population and warrants attention 05/28/2025 Sleep Apnea Probability Snores loudly: No Tired, fatigued or sleepy in daytime: Yes Stops breathing or choking/gasping during sleep: No High blood pressure: No Sleep Apnea Probability Score: 5 (Sleep study not recommended) documented in this encounter [facility] 05-09-2025 Telephone encounter Note Patient calling with request for physician referral: Patient referred to Neurology Department. Patient denies any new or worsening symptoms of which a provider is not aware: Yes. AC took call back over for scheduling. [facility] 05-09-2025 Miscellaneous Notes Patient calling with request for physician referral: Patient referred to Neurology Department. Patient denies any new or worsening symptoms of which a provider is not aware: Yes. AC took call back over for scheduling. documented in this encounter [facility] 05-07-2025 Nicolette Macdonald APRN.CNM - 05/07/2025 9:56 AM EDT Headache Prevention: 1) Riboflavin 400mg by mouth once daily 2) CoQ10 100mg by mouth once daily Metformin is a medication that will help the insulin your body is making work a little better in your body. It is important to take this medication regularly as prescribed. Common Adverse Effects: diarrhea, nausea, vomiting, bloating/gas (almost all patients will experience this at first, but it should improve if you follow plan ot increase below, do not miss doses, and ALWAYS take WITH food You should hold medication if vomiting for 3 days or more and before any CT/MRI that requires contrast The medication should be taken regularly with meals to minimize GI side effects Week 1: Take 1 tablet (500 mg) with Dinner Week 2: Take 1 tablet (500 mg) with Breakfast and 1 tablet (500 mg) with Dinner Week 3: Take 1 tablet (500 mg) with Breakfast and 2 tablets (1000 mg) with Dinner Week 4: Take 2 tablets (1000 mg) with Breakfast and 2 tablets (1000 mg) with Dinner *If you are feeling ok and seeing results with 1,000mg you can stop there but can go up to 2,000mg per day. Other supplements: NAC is typically taken at a dose of 600 mg three times/day. I recommend taking it for a minimum of 24 weeks (close to 6 months). If you experience symptom improvement, it s a very safe supplement that can be taken on an ongoing basis if needed. NAC (F-uzrubd-ogmeevwu) is a naturally occurring detox chemical in our bodies, and supplementation has also been shown to improve insulin resistance and reduce testosterone levels as well as hirsutism (unwanted facial hair) in women with PCOS, while improving menstrual regularity. Vitex is 20-40 mg/day, though up to 240 mg of products containing the herb has been shown to be safe and effective. Tincture or liquid extract is taken in doses of 20-40 drops up to 3 times/day, and some herbalists recommend as much as 1 measured teaspoon (= 5 mL) per day, either all in one dose in the morning, or divided into 2 or 3 doses throughout the day. Magnesium Citrate 400mg by mouth once a day DIM 200mg by mouth once daily Avoid red meat a week before menses Eat broccoli during menses to help with pain Resources to help with symptom management: Sahra Yost MD PCOS Supplements: https://InnaVirVax.Telepath/pcos-natur al-prescription/ https://Testlio/herbs-and- tvlhqyofhgs-kjk-zyaf/ PCOS Diet Support: https://Testlio/the-pcos-d iet/ https://Testlio/pcos-gut-c onnection/ Cycle Regulation: https://avivaromm.com/vitex-horm ones/ Polycystic Ovary Syndrome Women with polycystic ovary syndrome (PCOS) have a hormonal imbalance that interferes with normal reproductive processes. PCOS usually starts at puberty and is associated with irregular periods and other hormone related symptoms. The most concerning issues with PCOS are the increase of infertility, the risk of developing type 2 diabetes and cardiovascular disease, and the higher risk of developing endometrial (uterine) cancer at an early age. What are the symptoms of PCOS? Irregular menstrual periods, or no menstrual periods at all Decreased frequency or complete lack of ovulation, resulting in problems with infertility Obesity, often specifically characterized by weight gain in the upper body and abdomen Oily skin and hair and persistent acne into adulthood Abnormal hair growth, in a masculine distribution (facial hair, heavy hair growth on arms, chest, and abdomen) Tendency to develop type 2 diabetes What causes PCOS syndrome? Research is ongoing to uncover a cause for PCOS. There is evidence that shows a link between certain forms of PCOS and family history, suggesting a genetic basis for the condition. How is PCOS diagnosed? Most cases can be diagnosed with a thorough evaluation of your medical history and symptoms, as well as a physical exam. A blood test may be required to measure the levels of various hormones. In some cases, an ultrasound of the ovaries may help with diagnosis. How is PCOS treated? Although PCOS can be treated with medications, treatment is often highly dependent on your goals and your symptoms. If you want to become , you may need the assistance of oral or injected fertility medications. If you do not want to become , you may consider control pills to prevent and regulate periods. Other symptoms such as unwanted hair growth, acne, obesity, and diabetes should be managed by specialists in those areas. Specific treatment options should be discussed with your physician. How can PCOS be prevented? There is no known prevention for PCOS. However, through proper nutrition and weight management many women with polycystic ovary syndrome can avoid developing diabetes and cardiovascular problems. How can I improve my chances of conceiving if I have PCOS? While specific fertility issues should be addressed with your physician, there are some general healthcare guidelines that may improve your chances of becoming : Folic acid (400 mcg. supplement a day, with a diet rich in folic acid, including leafy green vegetables, dried beans, liver, and citrus fruits) Limit caffeine (Fewer than two caffeinated beverages per day) Eat well (Healthy well-balanced diet) Exercise and maintain a healthy weight (Maintain a normal exercise routine, 20 to 30 minutes per day, 4 to 5 times per week.) This information is provided by your physician and the [facility] Journal of Medicine and the [facility] [email or web address]/default.aspx. This information has not been designed to replace a physician's medical assessment and medical judgment. Copyright 1994- 2012 The [facility]. All rights reserved This information is provided by the [facility] and is not intended to replace the medical advice of your doctor or health care provider. Please consult your health care provider for advice about a specific medical condition. For additional health information, please contact the Center for Consumer Health Information at the [facility] or toll-free extension [phone]. If you prefer, you may visit [email or web address] or [email or web address]. This document was last reviewed on: 2009 index#8416 What Is Cholesterol? Cholesterol is a chemical that circulates in the blood stream as a means of transporting and exchanging fat. It comes from the food we eat and is also made in the liver. An accurate measurement of your cholesterol should include: LDL cholesterol: bad cholesterol, the primary circulating type, which can build up on blood vessel mcghee and cause blockage HDL cholesterol: good cholesterol, which soaks up and removes LDL from the bloodstream and lowers the risk of strokes and heart attacks Total cholesterol: the total HDL, LDL, and other minor blood fats. Triglycerides: come mainly from the sugar and alcohol we consume Established guidelines for cholesterol levels are: Cholesterol type Desirable Total cholesterol Below 200 mg/DL LDL cholesterol Below 130 mg/DL HDL cholesterol Over 50 mg/DL Remember, cholesterol is not the only risk factor for strokes or heart attacks. If you smoke, are over-weight, have high blood pressure, diabetes, a stressful job, or a strong family history or heart disease, these problems must also be addressed. Lowering Your Cholesterol Level There are three ways to lower cholesterol: diet, exercise, and medication. Let s discuss diet last. Exercise: exercise raises the HDL (good) cholesterol. You should plan to do a minimum of 30 of aerobic (heart and lung) exercise 3-5 times per week, during which your pulse should be in the 120-140 range. Swimming, cycling, jogging, and walking are the safest. Medications: there are several types: Those that bind cholesterol in the intestines and prevent absorption Prescription drugs that decrease cholesterol production Vitamins-nicotinic acid Natural fibers, especially pectin, which binds cholesterol in the intestine, and is present in fruit, vegetables, and oats If you need a medication, an appropriate on will be chosen and discussed with you. Diet: Keep total cholesterol intake below 300 mg per day Eat more fruit, grains and cereals Choose lean meats and food high in unsaturated fat Always bake, broil, steam, poach, stir-lemon or microwave food, then drain excess oils Have NO: fast food, snack or junk food, or pre-prepared frozen food Have oat bran cereal or bran muffins daily READ LABELS when shopping Foods to Use Meat Choose fish, chicken, & turkey. Limit lean (trimmed) beef and pork to once per week. For lunch meats use chicken, turkey, lean boiled ham and tuna. Eggs Egg whites as desired Egg yolks 1-2 per week Egg substitutes as desired Dairy Skim or 2% milk, low fat yogurt, mozzarella cheese, sherbet made with a sugar substitute Fruit, Vegetables and Nuts As desired (vegetables are low in cholesterol, nuts are high in unsaturated fat) Bread and Cereal Choose whole grain or enriched breads Rice and pasta as desired Oils Polyunsaturated margarine and vegetable oils made from corn, cottonseed, soybeans, sunflower, safflower, sesame seeds and canola Monounsaturated oils, particularly peanut and olive oil, may be substituted occasionally for variety Beverages Alcohol up to 1oz. per day. Coffee, tea, skim or 2% milk, sparkling water, natural juices. Foods to Avoid Meat Marbled beef, veal, aparicio, upton, organ meats, sausage, duck, liver, shell-fish (lobster, crab, shrimp), hot dogs (except turkey corral), processed lunch meat Dairy Whole milk, ice cream, butter, non-dairy creamers, most cheeses Fruit, Vegetables and Nuts Avocados, olives Bread and Cereal Baked goods made with shortening, sugar, eggs, or whole milk Oils Butter, saturated fats (those that harden at room temperature) palm oil, coconut oil, chocolate Beverages Beer, pop, sweetened drinks If you need to lose weight, decrease your starch intake (bread, potatoes, pasta) and oils, and exercise more often. Your cholesterol and weight will be rechecked at intervals that you and your doctor feel are appropriate, and adjustments will be made in your program if necessary. documented in this encounter [facility] 05-07-2025 Note HNO ID: [id number] Author: NICOLETTE NEUMANN APRN.CNM Service: ? Author Type: Pcb Design Engineer Type: Progress Notes Filed: 05/07/2025 12:45 Note Text: Obstetrics and Gynecology [facility] DIRECTOR OF RECRUITMENT AND ADMISSIONS Visit Subjective Recording using Zarpo software for draft documentation of the visit was discussed with the patient/authorized automobile rental representative; all questions welcomed and answered. Patient/authorized automobile rental representative agreed to proceed CHIEF COMPLAINT: Follow up HPI: The patient is a 19-year-old female presenting for follow-up on irregular menses and recent onset of daily migraines with aura. The patient reports a long-standing history of irregular and heavy menses. She previously used Depo-Provera, which resulted in continuous bleeding for two years and subsequent anemia. Currently, she experiences bleeding every 2-6 weeks, with episodes lasting 7-10 days, varying from light to heavy flow. She describes her menstrual pattern as very random, with multiple periods in a month or none at all. She also reports significant cramping and a sensation of pelvic heaviness described as feeling like a bowling ball. She denies current sexual activity, with the last occurrence approximately two years ago. Will have bleeding every 2-6 weeks, 7-10 days, light-heavy, and cramps. Cramps seem to be worth with the light bleeding. Feels light headed and dizzy but also has POTS Will take midol for pain and felt it used to work but not at this time. The only thing that helps is the bath. At this time, has not been on anything for menses. Feels she has a weight or bowling ball in her vaginal area. Feels heaviness not painful but uncomfortable. Currently engaged not sexually active at this time. Last time she was sexually was about 2 years ago and painful when she did engage in sex and cramp after. Admits to pain with urination and with bowel movements. Will also have cramping on and off all the time. Additionally, the patient reports daily excruciating migraines with aura for the past 2.5 months. Symptoms include vision loss, vertigo, and severe weakness, described as feeling like a limp noodle. She experiences these headaches every day, starting around 1295-0119 and worsening by evening, affecting her vision. She was recently referred to a neurologist by her PCP, Daniela Fenton, and is awaiting an appointment. She was prescribed propranolol and Emgality but has not started Emgality due to apprehension. She visited the ER last week due to facial and neck numbness, where a CT scan was performed and results were normal. She denies MRI. The patient expresses interest in consulting a labor custodian. She is hesitant to start control due to previous negative experiences and prefers to focus on weight management first. She denies current sexual activity and plans to abstain until after marriage. She is engaged and planning to in July.She expresses a desire to have children in the future and is concerned about the potential impact of endometriosis on fertility. She reports a family history of endometriosis in her grandmother and aunt. 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 FAMILY HISTORY Problem Relation Age of Onset Breast Cancer Maternal Grandmother Social History Tobacco Use Smoking status: Never Smokeless tobacco: Never Substance Use Topics Alcohol use: Never Drug use: Never Current Outpatient Medications Medication Sig nortriptyline (PAMELOR) 25 mg capsule 25 mg. diphenhydramine HCl (BENADRYL ALLERGY ORAL) Take by mouth. PRN with Nortriptyline metFORMIN (GLUCOPHAGE) 500 mg tablet Take 2 tablets by mouth two times a day with meals. Week 1: 500mg with dinner, Week 2: 500mg Twice a day, Week 3: 500 mg with Breakfast and 2 tablets 1000 mg with Dinner, Week 4: 1000mg Twice a day No current facility-administered medications for this visit. ALLERGIES No Known Allergies REVIEW OF SYSTEMS: Constitutional: (+) weight gain Head: (+) daily migraines Eyes: (+) visual aura with wavy lines, (+) blurry vision, (+) transient vision loss Genitourinary: (+) heavy menstrual bleeding, (+) irregular menses, (+) pelvic cramps, (+) pelvic pressure Musculoskeletal: (+) lower back pain Neurological: (+) dizziness, (+) facial numbness, (+) neck numbness, (+) generalized weakness Endocrine: (+) polydipsia Objective SENSITIVE EXAM: Sensitive exam not performed. PHYSICAL EXAM: BP 110/72 Wt 180 lb (81.6kg) LMP 05/03/2025 GENERAL: Pleasant; in no apparent distress PULMONARY: normal inspiratory effort NEURO: (more content not included)... [facility] 05-07-2025 History of Presen t illness Narrative Images from the original note were not included. Obstetrics and Gynecology [facility] DIRECTOR OF RECRUITMENT AND ADMISSIONS Visit Subjective Recording using Zarpo software for draft documentation of the visit was discussed with the patient/authorized automobile rental representative; all questions welcomed and answered. Patient/authorized automobile rental representative agreed to proceed CHIEF COMPLAINT: Follow up HPI: The patient is a 19-year-old female presenting for follow-up on irregular menses and recent onset of daily migraines with aura. The patient reports a long-standing history of irregular and heavy menses. She previously used Depo-Provera, which resulted in continuous bleeding for two years and subsequent anemia. Currently, she experiences bleeding every 2-6 weeks, with episodes lasting 7-10 days, varying from light to heavy flow. She describes her menstrual pattern as very random, with multiple periods in a month or none at all. She also reports significant cramping and a sensation of pelvic heaviness described as feeling like a bowling ball. She denies current sexual activity, with the last occurrence approximately two years ago. Will have bleeding every 2-6 weeks, 7-10 days, light-heavy, and cramps. Cramps seem to be worth with the light bleeding. Feels light headed and dizzy but also has POTS Will take midol for pain and felt it used to work but not at this time. The only thing that helps is the bath. At this time, has not been on anything for menses. Feels she has a weight or bowling ball in her vaginal area. Feels heaviness not painful but uncomfortable. Currently engaged not sexually active at this time. Last time she was sexually was about 2 years ago and painful when she did engage in sex and cramp after. Admits to pain with urination and with bowel movements. Will also have cramping on and off all the time. Additionally, the patient reports daily excruciating migraines with aura for the past 2.5 months. Symptoms include vision loss, vertigo, and severe weakness, described as feeling like a limp noodle. She experiences these headaches every day, starting around [id number] and worsening by evening, affecting her vision. She was recently referred to a neurologist by her PCP, Daniela Fenton, and is awaiting an appointment. She was prescribed propranolol and Emgality but has not started Emgality due to apprehension. She visited the ER last week due to facial and neck numbness, where a CT scan was performed and results were normal. She denies MRI. The patient expresses interest in consulting a labor custodian. She is hesitant to start control due to previous negative experiences and prefers to focus on weight management first. She denies current sexual activity and plans to abstain until after marriage. She is engaged and planning to in July.She expresses a desire to have children in the future and is concerned about the potential impact of endometriosis on fertility. She reports a family history of endometriosis in her grandmother and aunt. 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 FAMILY HISTORY Problem Relation Age of Onset Breast Cancer Maternal Grandmother Social History Tobacco Use Smoking status: Never Smokeless tobacco: Never Substance Use Topics Alcohol use: Never Drug use: Never Current Outpatient Medications Medication Sig nortriptyline (PAMELOR) 25 mg capsule 25 mg. diphenhydramine HCl (BENADRYL ALLERGY ORAL) Take by mouth. PRN with Nortriptyline metFORMIN (GLUCOPHAGE) 500 mg tablet Take 2 tablets by mouth two times a day with meals. Week 1: 500mg with dinner, Week 2: 500mg Twice a day, Week 3: 500 mg with Breakfast and 2 tablets 1000 mg with Dinner, Week 4: 1000mg Twice a day No current facility-administered medications for this visit. ALLERGIES No Known Allergies REVIEW OF SYSTEMS: Constitutional: (+) weight gain Head: (+) daily migraines Eyes: (+) visual aura with wavy lines, (+) blurry vision, (+) transient vision loss Genitourinary: (+) heavy menstrual bleeding, (+) irregular menses, (+) pelvic cramps, (+) pelvic pressure Musculoskeletal: (+) lower back pain Neurological: (+) dizziness, (+) facial numbness, (+) neck numbness, (+) generalized weakness Endocrine: (+) polydipsia Objective SENSITIVE EXAM: Sensitive exam not performed. PHYSICAL EXAM: BP 110/72 Wt 180 lb (81.6kg) LMP 05/03/2025 GENERAL: Pleasant; in no apparent distress PULMONARY: normal inspiratory effort NEURO: alert and oriented x3 EXTREMITIES: normal Results PELVIC US I (Acc#[id number] ) (Order [id number]) Patient Info Patient Name Sex Liban Elsa Hunt ([id number]) Female 2005 Ultrasound [id number] 03/15/2025 8:09 PM Adelina Ibrahim MD Signed by Adelina Ibrahim MD on 03/15/25 at 2008 Display only: Heel [employer]ement[employer] ([id number] ) on 03/15/2025 8:09 PM by Adelina Ibrahim MD 03/15/2025 8:11 PM - [facility], Scanning In Results-Findings Indication Abnormal uterine bleeding, pelvic pain in female Impression Normal appearing anteflexed uterus that measures 76 mm x 26 mm x 55 mm. Endometrium has a normal trilaminar appearance and measures 3.3 mm. Arcuate endometrial contour. Normal appearing right ovary. Left ovary contains a 31 x 32 x 29 mm hemorrhagic cyst with reticular pattern/clot. No adnexal masses were observed. There is free fluid visualized in the peritoneal cavity. Recommendations O-RADS 2 left ovarian non-simple cyst, almost certainly benign. Follow up ultrasound is recommended in 6 months. Latest Ref [facility] 03/04/2025 WBC 3.70 - 11.00 k/uL 6.09 RBC 3.90 - 5.20 m/uL 4.78 Hemoglobin 11.5 - 15.5 g/dL 13.2 Hematocrit 36.0 - 46.0 % 37.6 MCV 80.0 - 100.0 fL 78.7 (L) MCH 26.0 - 34.0 pg 27.6 MCHC 30.5 - 36.0 g/dL 35.1 RDW-CV 11.5 - 15.0 % 12.5 Platelet Count 150 - 400 k/uL 300 MPV 9.0 - 12.7 fL 10.4 Neut% % 60.7 Abs Neut (ANC) 1.45 - 7.50 k/uL 3.69 Lymph% % 28.1 Abs Lymph 1.00 - 4.00 k/uL 1.71 Searcy% % 8.0 Abs [place]cy <0.87 k/uL 0.49 Eosin% % 2.1 Abs Eosin <0.46 k/uL 0.13 Baso% % 0.8 Abs Baso <0.11 k/uL 0.05 Immature Gran % % 0.3 IMMATURE GRANS (ABS) <0.10 k/uL <0.03 NRBC /100 WBC 0.0 Absolute nRBC <0.01 k/uL <0.01 DTYPE Auto Protein, Total 6.3 - 8.0 g/dL 7.4 Albumin 3.9 - 4.9 g/dL 4.7 Calcium 8.5 - 10.2 mg/dL 9.5 Bilirubin, Total 0.2 - 1.3 mg/dL 0.5 Alkaline Phosphatase 34 - 123 U/L 86 AST 13 - 35 U/L 19 ALT 7 - 38 U/L 11 Glucose 74 - 99 mg/dL 99 BUN 7 - 21 mg/dL 7 Creatinine 0.58 - 0.96 mg/dL 0.79 Sodium 136 - 144 mmol/L 139 Potassium 3.7 - 5.1 mmol/L 3.9 Chloride 98 - 107 mmol/L 103 CO2 22 - 30 mmol/L 23 Anion Gap 8 - 15 mmol/L 13 eGFR >=60 mL/min/1.73m 109 Total Cholesterol, Nonfasting <200 mg/dL 185 Triglycerides, Nonfasting <150 mg/dL 52 HDL Cholesterol, Nonfasting >39 mg/dL 47 LDL Cholesterol Calculated, Nonfasting <100 mg/dL 128 (H) Non HDL Cholesterol, Nonfasting <130 mg/dL 138 (H) VLDL Cholesterol, Nonfasting <30 mg/dL 10 Total Chol/HDL Ratio, Nonfasting <5.10 mg/dL 3.94 LDL/HDL Ratio, Nonfasting <2.54 mg/dL 2.72 (H) Testosterone, Total, S 10.0 - 55.0 ng/dL 29.4 Testosterone, Free, S 0.10 - 0.85 ng/dL 0.86 (H) Testosterone, % Free, S 0.50 - 2.80 % 2.94 (H) Iron 41 - 186 ug/dL 102 TIBC 232 - 386 ug/dL 342 Transferrin Saturation 15.0 - 57.0 % 29.8 Hemoglobin A1C 4.3 - 5.6 % 5.0 Estimated Average Glucose mg/dL 97 TSH 0.270 - 4.200 mIU/L 1.760 Prolactin 4.4 - 33.8 ng/mL 18.5 DHEA-S 148.0 - 407.0 ug/dL 194.2 Hydroxyprogesterone <=206.00 ng/dL 116.56 FSH See comment mIU/mL 4.4 LH See comment mIU/mL 7.6 Estradiol 17B pg/mL 57 Ferritin 14.7 - 205.1 ng/mL 30.9 Legend: (L) Low (H) High ASSESSMENT AND PLAN: 1. Abnormal uterine bleeding (AUB) (N93.9) PCOS (polycystic ovarian syndrome) (E28.2) Elevated testosterone level (R79.89) Class 1 obesity without serious comorbidity with body mass index (BMI) of 34.0 to 34.9 in adult, unspecified obesity type (E66.811) - Initiated Metformin, starting at 500 mg with dinner, gradually increasing to 1000 mg twice daily with meals to aid in weight management and hormonal regulation. - Recommended dietary modifications, including a lower cholesterol diet and 30 minutes of walking most days. - Ordered follow-up pelvic ultrasound in August to monitor the left ovarian cyst. - Discussed option for menstrual suppression with IUD, nexplanon or progesteone only pill. She declines at this time and does not want to take control. Prescribed natural supplements: NAC, Vitex, Magnesium, and DIM to help regulate menstrual cycles and manage symptoms. - Scheduled follow-up appointment in August to assess progress and perform a full annual visit. 2. Cyst of left ovary (N83.202) Ultrasound revealed a small hemorrhagic cyst on the left ovary, likely benign. - Ordered follow-up pelvic ultrasound in August to monitor the cyst. 3. Migraine with aura and without status migrainosus, not intractable (G43.109) - Encouraged patient to start Emgality injections. - Referred to neurology for further evaluation and management. - Recommended supplements: Magnesium, Riboflavin, and CoQ10 to help manage migraines. - Reviewed no combined hormonal management with migraine and aura unless discussed with neurology. 4. Elevated lipoprotein(a) (E78.41) Lab results show elevated LDL cholesterol levels. - Recommended a lower cholesterol diet and regular exercise. - Plan to repeat lipid panel in one year. Nicolette Neumann APRN.CNM documented in this encounter [facility] 05-04-2025 Hospital Discharg e instructions Patient Education 05/04/2025 00:53:24 Headache, Migraine, Classic Migraine Headache This often severe type of headache is different from other types of headaches in that symptoms other than pain occur with the headache. Nausea and vomiting, lightheadedness, sensitivity to light (photophobia), and other visual disturbances are common migraine symptoms. The pain may last from a few hours to several days. It is not clear why migraines occur but certain factors called triggers can raise the risk of having a migraine attack. A migraine may be triggered by emotional stress or depression, or by hormone changes during the menstrual cycle. Other triggers include control pills, overuse of migraine medicines, alcohol or caffeine, foods with tyramine (such as aged cheese and wine), eyestrain, weather changes, missed meals, or too little or too much sleep. Home care Follow these tips when taking care of yourself at home: Don t drive yourself home if you were given pain medicine for your headache or are having visual symptoms. Instead, have someone else drive you home. Try to sleep when you get home. You should feel much better when you wake up. Cold can help ease migraine symptoms. Put an ice pack on your forehead or at the base of your skull. Put heat on the back of your neck to help ease any neck spasm. Drink only clear liquids or eat a light diet until your symptoms get better. This will help you avoid nausea and vomiting. How to prevent migraines Pay attention to what seems to trigger your headache. Try to avoid the triggers when you can. If you have frequent headaches, consider keeping a headache diary. In it, write down what you were doing, feeling, or eating in the hours before each headache. Show this to your healthcare provider to help find the cause of your headaches. If stress seems to be a trigger for your headaches, figure out what is causing stress in your life. Learn new ways to handle your stress. Ideas include regular exercise, biofeedback, self-hypnosis, yoga, and meditation. Talk with your healthcare provider to find out more information about managing stress. Many books and digital media are also available on this subject. Tyramine is a substance found in many foods. It can trigger a migraine in some people. These foods contain tyramine: Chocolate Yogurt All cheeses, but especially aged cheeses Smoked or pickled fish and meat, including webb, caviar, bologna, pepperoni, and salami Liver Avocados Bananas Figs Raisins Red wine Try staying away from these foods for 1 to 2 months to see if you have fewer headaches. How to treat future headaches Take time out at the first sign of a headache, if possible. Find a quiet, dark, comfortable place to sit or lie down. Let yourself relax or sleep. Put an ice pack on your forehead or on the area of greatest pain. A heating pad and massage may help if you are having a muscle spasm and tightness in your neck. If you have been prescribed a medicine to stop a migraine headache, use this at the first warning sign of the headache for best results. First signs may be an aura or pain. If you need to take medicine often for your migraine, talk with your healthcare provider about other ways to prevent your headaches. Follow-up care Follow up with your healthcare provider, or as advised. Talk with your provider if you have frequent headaches. He or she can figure out a treatment plan. Ask if you can have medicine to take at home the next time you get a bad headache. This may keep you from having to visit the emergency department in the future. You may need to see a headache specialist (neurologist) if you continue to have headaches. When to seek medical advice Call your healthcare provider right away if any of these occur: Your head pain gets worse, or doesn t get better within 24 hours You can t keep liquids down (repeated vomiting) Pain in your sinuses, ears, or throat Fever of 100.4 F (38 C) or higher, or as directed by your healthcare provider Stiff neck Extreme drowsiness, confusion, or fainting Dizziness, or dizziness with spinning sensation (vertigo) Weakness in an arm or leg, or on one side of your face Difficulty talking or seeing [id number] [employer]. [address] [place] [address]. All rights reserved. This information is not intended as a substitute for professional medical care. Always follow your healthcare professional's instructions. Follow Up Care 05/03/2025 22:55:23 With:ABIEL CUETO DO, Neurology Service Address: [address] [place] [address] [phone] When:2-4 days With:DANIELA FENTON [facility] Address: [address] [place] [phone]- When:2-4 days [facility] 05-04-2025 Note Discharge Instructions Thank you for allowing [facility] to assist you with your healthcare needs. The following is important discharge information regarding your hospital visit. Diagnosis from Today's Visit Migraine What to Do Next Instructions from Your Care Team No qualifying data available. Post Acute Orders No qualifying data available. You Need to Schedule the Following Appointments Follow Up with ABIEL CUETO DO, Neurology Service When:Within 2-4 days Where:[address] [place] [address] [phone] Follow Up with DANIELA FENTON APRN - [facility] When:Within 2-4 days Where:[address] [facility] [place] [address]- Allergies Contrast dye Medications Please ask your primary doctor or pharmacist before taking any other medication not listed, including over the counter drugs, herbal medications, vitamins and or supplements as they may interact with your home medications. What How Much When Why Instructions Last Dose New prochlorperazine (prochlorperazine 10 mg oral tablet) 1 tab(s) by mouth Two (2) times a day as needed for Headache Duration: 5 Days Take with 25 mg Benadryl at the onset of headache Printed Prescription Unchanged APAP/ butalbital/ caffeine (APAP/ butalbital/ caffeine 325-50-40 mg oral tablet (Fioricet)) 1 tab(s) by mouth Every 6 hours as needed for as needed for headache Migraines Frequent headaches Duration: 5 Days not to exceed 6 tablets/ day Unchanged multivitamin, ( AD) by mouth Once a day Unchanged nortriptyline (nortriptyline 25 mg oral capsule) 1 cap by mouth Daily at bedtime Migraines Frequent headaches Duration: 30 Days Please take this list to your next doctor s visit. Bring all medications you take, including over the counter medications, herbals and other supplements with you to your doctor s visit. Patients and families are reminded to discard old lists and to update any records with all medication providers or retail pharmacies. Education Materials Migraine Headache This often severe type of headache is different from other types of headaches in that symptoms other than pain occur with the headache. Nausea and vomiting, lightheadedness, sensitivity to light (photophobia), and other visual disturbances are common migraine symptoms. The pain may last from a few hours to several days. It is not clear why migraines occur but certain factors called triggers can raise the risk of having a migraine attack. A migraine may be triggered by emotional stress or depression, or by hormone changes during the menstrual cycle. Other triggers include control pills, overuse of migraine medicines, alcohol or caffeine, foods with tyramine (such as aged cheese and wine), eyestrain, weather changes, missed meals, or too little or too much sleep. Home care Follow these tips when taking care of yourself at home: Don t drive yourself home if you were given pain medicine for your headache or are having visual symptoms. Instead, have someone else drive you home. Try to sleep when you get home. You should feel much better when you wake up. Cold can help ease migraine symptoms. Put an ice pack on your forehead or at the base of your skull. Put heat on the back of your neck to help ease any neck spasm. Drink only clear liquids or eat a light diet until your symptoms get better. This will help you avoid nausea and vomiting. How to prevent migraines Pay attention to what seems to trigger your headache. Try to avoid the triggers when you can. If you have frequent headaches, consider keeping a headache diary. In it, write down what you were doing, feeling, or eating in the hours before each headache. Show this to your healthcare provider to help find the cause of your headaches. If stress seems to be a trigger for your headaches, figure out what is causing stress in your life. Learn new ways to handle your stress. Ideas include regular exercise, biofeedback, self-hypnosis, yoga, and meditation. Talk with your healthcare provider to find out more information about managing stress. Many books and digital media are also available on this subject. Tyramine is a substance found in many foods. It can trigger a migraine in some people. These foods contain tyramine: Chocolate Yogurt All cheeses, but especially aged cheeses Smoked or pickled fish and meat, including webb, caviar, bologna, pepperoni, and salami Liver Avocados Bananas Figs Raisins Red wine Try staying away from these foods for 1 to 2 months to see if you have fewer headaches. How to treat future headaches Take time out at the first sign of a headache, if possible. Find a quiet, dark, comfortable place to sit or lie down. Let yourself relax or sleep. Put an ice pack on your forehead or on the area of greatest pain. A heating pad and massage may help if you are having a muscle spasm and tightness in your neck. If you have been prescribed a medicine to stop a migraine headache, use this at the first warning sign of the headache for best results. First signs may be an aura or pain. If you need to take medicine often for your migraine, talk with your healthcare provider about other ways to prevent your headaches. Follow-up care Follow up with your healthcare provider, or as advised. Talk with your provider if you have frequent headaches. He or she can figure out a treatment plan. Ask if you can have medicine to take at home the next time you get a bad headache. This may keep you from having to visit the emergency department in the future. You may need to see a headache specialist (neurologist) if you continue to have headaches. When to seek medical advice Call your healthcare provider right away if any of these occur: Your head pain gets worse, or doesn t get better within 24 hours You can t keep liquids down (repeated vomiting) Pain in your sinuses, ears, or throat Fever of 100.4 F (38 C) or higher, or as directed by your healthcare provider Stiff neck Extreme drowsiness, confusion, or fainting Dizziness, or dizziness with spinning sensation (vertigo) Weakness in an arm or leg, or on one side of your face Difficulty talking or seeing [id number] [employer]. [address] [place] [address]. All rights reserved. This information is not intended as a substitute for professional medical care. Always follow your healthcare professional's instructions. Additional Information VACCINATE! IT SAVES LIVES! Members of the community who have not yet received the COVID-19 vaccine and would like to receive it can visit one of [facility] vaccine clinics. There are many vaccine clinic locations within the [facility]. For locations and available times, please visit [email or web address] [email or web address] It is important to note that some COVID mobile vaccine clinics are held outdoors and may be canceled in rainy or stormy conditions. To learn more about pediatric vaccinations (ages 5-11), we invite you to visit the [facility] webpage. https://www.[facility].org/p ages/8263-Kelum-Fvgcseerzob-Freq wxerpt-Qaizj-Ofqsrruzx.html To learn more about the COVID-19 vaccine, we invite you to visit the CDC website for a list of frequently asked questions. https://www.cdc.gov/coronavirus/ 2019-ncov/vaccines/faq.html [facility] Patient Portal Access Instructions: Stay connected with your healthcare team and access your personal medical information anytime with the [facility] Patient Portal. If you would like a full copy of your medical records please contact the [facility] Medical Records Department Tuesday through Tuesday between 8a.m. and 4:30p.m. Please follow the directions below to access the portal: 1.Access the email account you provided upon registration to the hospital.2.Look for an invitation email from [facility].3.Open the email and access the invitation link: Accept Invitation to [employer]4.Fill in the required pearl to create your account. Sign into [email or web address] with your username and password that you created in the above steps to stay up to date. You can then view a summary of results, a summary of your visits, and the ability to download your summaries to your computer or send the information securely to a physician. Remember that your healthcare information is confidential, so carefully consider who you will allow to register on the [facility] Patient Portal for access to your information. You can also access the [employer] Patient Portal on the Member Desk kimber. Simply click on Health Records under Health Data and then click on the [employer] logo. HOW TO SAFELY DISPOSE OF PRESCRIPTION MEDICATIONS Please use one of the following methods to safely dispose of your unused medications. 1.Use a drug disposal kit: the drug disposal pouch allows you to safely discard your old and unused drugs. Ask your nurse to give you one when you are discharged.2.Visit a local take-back location: Many local pharmacies and police departments have programs that collect old and unwanted prescription drugs. Call your local pharmacy or go to http://[employer].BringMeThat/6G0Bz0h to find one close to you.3.Make use of household items: Use cat litter or old coffee grounds to dispose medications if other options are not available. Mix your drugs with these household products, seal them in an airtight container and throw it into the garbage. Call [facility]: [phone] to be sure your drugs can be disposed of in this way. Some medicines may require a different approach.4.Never flush your medications down the toilet. IF YOU HAVE BEEN PRESCRIBED AN OPIOIDS FOR PAIN If you have been prescribed an opioid (such as hydrocodone, oxycodone or morphine), it is critical to understand the possible side effects and risks of opioid pain medications. Even when taken as directed, opioids can have several side effects including: Tolerance, meaning you might need to take more of a medication for the same pain relief. Nausea, vomiting and/or constipation. Sleepiness, dizziness, dry mouth, confusion, depression or itching. Physical dependence, meaning you have withdrawal symptoms when a medication is stopped ? this can develop within a few days. KNOW YOUR RESPONSIBILITIES It is important to know exactly how much and how often to take the opioid pain medications you are prescribed. Never take opioids in higher amounts or more often than prescribed. Do not combine opioids with alcohol or other drugs that cause drowsiness, such as benzodiazepines, also known as benzos, including diazepam and alprazolam, muscle relaxants or sleep aids. Never sell or share prescription opioids. This is illegal. Store opioids in a secure place and out of reach of others (including children, family, friends and visitors). The last page(s) of this document has been signed and retained as a CHART COPY Signatures Patient Education Materials Headache, Migraine, Classic Medication Leaflets My discharge plan and instructions have been reviewed and explained to me and I,MASTERSELSA understand my current condition and have read and understand these discharge instructions. I have received a written copy of the plan/instructions. If I have questions, I am aware that I should contact my doctor. Patient/Clinic Nurse Signature: Date/Time: Relationship to Patient: Witness Name/Signature: Date/Time: [facility] 05-04-2025 Note Exam Date Time Procedure Performing Provider Status 05/04/25 12:[address] Head or Brain w/o Contrast CAROLYN GAGE MD; Auth (Verified) [id number] ORIGINAL EXAMINATION: CT OF THE HEAD WITHOUT CONTRAST 05/04/2025 12:09 am TECHNIQUE: CT of the head was performed without the administration of intravenous contrast. Automated exposure control, iterative reconstruction, and/or weight based adjustment of the mA/kV was utilized to reduce the radiation dose to as low as reasonably achievable. COMPARISON: None. HISTORY: ORDERING SYSTEM PROVIDED HISTORY: Reason for Exam: headache all day long, states meds didn't help her Headache, increasing frequency or severity FINDINGS: BRAIN/VENTRICLES: There is no acute intracranial hemorrhage, mass effect or midline shift. No abnormal extra-axial fluid collection. The lorenzo-white differentiation is maintained without evidence of an acute infarct. There is no evidence of hydrocephalus. ORBITS: The visualized portion of the orbits demonstrate no acute abnormality. SINUSES: The visualized paranasal sinuses and mastoid air cells demonstrate no acute abnormality. SOFT TISSUES/SKULL: No acute abnormality of the visualized skull or soft tissues. IMPRESSION: No acute intracranial abnormality. Interpreted by: Carolyn Gage MD Preliminary Report By: Carolyn Gage MD Electronically signed By Carolyn Gage MD Dictated Date: 05/04/2025 12:24:28 AM Prelim Date: 05/04/2025 12:27:46 AM Sign Date: 05/04/2025 12:27:46 AM Ordering Provider: [facility]04-25-2025 NoteHNO ID: [id number] Author: DALILA CALERO MD Service: ? 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 Encounter Diagnosis ICD-10-CM 1. Abnormal uterine bleeding (AUB) N93.9 2. Pelvic pain in female R10.2 Please see report under imaging tab. Dalila Calero MD March 15, 2025 8:05 [facility]04-09-2025 NoteHNO ID: [id number] Author: NICOLETTE NEUMANN APRN.CNM Service: ? Author Type: Pcb Design Engineer Type: Progress Notes Filed: 03/04/2025 17:11 Note Text: Elsa Louie is a 19 year old female who presents for problem visit for . HPI: Seen PCP and then referred to specialist. Tried several controls but didn't get any resolution. Seen provider at [facility]. Menses have been never been normal. Menarche at age 11-12. Always heavy, lastes 7-10 days. Always abnormal, they come whenever they want. Sexually active at age 14 and went on depo. Had menses/bleeding every day for 2 years. Became anemic during that time. Stopped depo, and didn't start anything new, was still bleeding daily 6 months after it stopped. Went to PCP and attempted an exam and thought she seen polyps? Went to another provider and US completed but declined TVUS. After being off of depo about 6 months started OCP. With all OCP still had bleeding every day. After 9 months of using pills just stopped everything. Thinks she used 2-3 different pills. Will have bleeding every 2-6 weeks, 7-10 days, light-heavy, and cramps. Cramps seem to be worth with the light bleeding. Feels light headed and dizzy but also has POTS Will take midol for pain and felt it used to work but not at this time. The only thing that helps is the bath. At this time, has not been on anything for menses. Feels she has a weight or bowling ball in her vaginal area. Feels heaviness not painful but uncomfortable. Currently engaged not sexually active at this time. Last time she was sexually was about 2 years ago and painful when she did engage in sex and cramp after. Admits to pain with urination and with bowel movements. Will also have cramping on and off all the time. 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 No pertinent surgical history. FAMILY HISTORY Problem Relation Age of Onset Breast Cancer Maternal Grandmother Social History Tobacco Use Smoking status: Never Smokeless tobacco: Never Substance Use Topics Alcohol use: Never Drug use: Never No current outpatient medications on file. No current facility-administered medications for this visit. Allergies As of Date: 02/27/2025 (No Known Allergies) Fully Assessed 02/27/2025 REVIEW OF SYSTEMS Abdomen: No bloating, early satiety, indigestion, or increased flatulence. No abdominal pain, nausea, vomiting, diarrhea, or constipation. Bladder: No dysuria, gross hematuria, urinary frequency, urinary urgency, or incontinence. Breast: No breast lumps, nipple d/c, overlying skin changes, redness or skin retraction. Expanded ROS: N/A Allergies and current medication updated:Yes SENSITIVE EXAM: The sensitive examination was discussed with the Patient or Patient's Authorized Clinic Nurse. As applicable, any other physician, advance practice provider, medical student, or other health professional student that will be observing or involved in the sensitive examination for educational or training purposes was discussed with the Patient or Authorized Clinic Nurse. The Patient or Authorized Clinic Nurse has agreed to proceed with the sensitive examination. (Sensitive examination includes inspection and/or palpation of the breasts, pelvis, prostate and anorectal regions). EXAM: BP 110/66 Wt 174 lb (78.9kg) LMP 02/11/2025 GENERAL: pleasant, female in no apparent distress HEENT: Normocephalic, atraumatic, mucus membranes moist, and no lesions NECK: Supple, full range of motion, no adenopathy, and thyroid normal DERMATOLOGY: Normal, without lesions, non-icteric, and non-hirsute CHEST: Normal inspiratory effort ABDOMEN: soft, non-tender, and no masses PELVIC: external genitalia normal, normal Bartholin's glands, urethra, [place]'s glands, no vulvar lesions, no cervical lesions, good vaginal support, physiologic discharge present, normal appearing perineal body and perianal region BIMANUAL: uterus normal size, shape and consistency, no adnexal masses,and Moderate tenderness NEURO: alert and oriented x3,exam grossly non-focal EXTREMITIES: normal Assessment AND Plan Abnormal uterine bleeding (AUB) Orders: PELVIC US WHI; Future THYROID STIMULATING HORMONE; Future PROLACTIN; Future TESTOSTERONE, FREE AND TOTAL, BY EQUILIBRIUM ULTRAFILTRATION MASS SPECTROMETRY; Future DHEA-S BLD; Future HYDROXYPROGESTERONE-17; Future FOLLICLE STIMULATING HORMONE; Future LUTEINIZING HORMONE; Future ESTRADIOL-17B BLD; Future HEMOGLOBIN A1C; Future COMPREHENSIVE METABOLIC PANEL; Future LIPID PANEL, NONFASTING; Future COMPLETE BLOOD COUN (more content not included)...[facility] 02-27-2025 History of Present illness Narrative* Nicolette Neumann APRN.CNM - 02/27/2025 1:53 PM EDT Elsa Louie is a 19 year old female who presents for problem visit for . HPI: Seen PCP and then referred to specialist. Tried several controls but didn't get any resolution. Seen provider at [facility]. Menses have been never been normal. Menarche at age 11-12. Always heavy, lastes 7-10 days. Always abnormal, they come whenever they want. Sexually active at age 14 and went on depo. Had menses/bleeding every day for 2 years. Became anemic during that time. Stopped depo, and didn't start anything new, was still bleeding daily 6 months after it stopped. Went to PCP and attempted an exam and thought she seen polyps? Went to another provider and US completed but declined TVUS. After being off of depo about 6 months started OCP. With all OCP still had bleeding every day. After 9 months of using pills just stopped everything. Thinks she used 2-3 different pills. Will have bleeding every 2-6 weeks, 7-10 days, light-heavy, and cramps. Cramps seem to be worth with the light bleeding. Feels light headed and dizzy but also has POTS Will take midol for pain and felt it used to work but not at this time. The only thing that helps is the bath. At this time, has not been on anything for menses. Feels she has a weight or bowling ball in her vaginal area. Feels heaviness not painful but uncomfortable. Currently engaged not sexually active at this time. Last time she was sexually was about 2 years ago and painful when she did engage in sex and cramp after. Admits to pain with urination and with bowel movements. Will also have cramping on and off all the time. 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 No pertinent surgical history. FAMILY HISTORY Problem Relation Age of Onset Breast Cancer Maternal Grandmother Social History Tobacco Use Smoking status: Never Smokeless tobacco: Never Substance Use Topics Alcohol use: Never Drug use: Never No current outpatient medications on file. No current facility-administered medications for this visit. Allergies As of Date: 02/27/2025 (No Known Allergies) Fully Assessed 02/27/2025 REVIEW OF SYSTEMS Abdomen: No bloating, early satiety, indigestion, or increased flatulence. No abdominal pain, nausea, vomiting, diarrhea, or constipation. Bladder: No dysuria, gross hematuria, urinary frequency, urinary urgency, or incontinence. Breast: No breast lumps, nipple d/c, overlying skin changes, redness or skin retraction. Expanded ROS: N/A Allergies and current medication updated:Yes SENSITIVE EXAM: The sensitive examination was discussed with the Patient or Patient's Authorized Clinic Nurse. As applicable, any other physician, advance practice provider, medical student, or other health professional student that will be observing or involved in the sensitive examination for educational or training purposes was discussed with the Patient or Authorized Clinic Nurse. The Patient or Authorized Clinic Nurse has agreed to proceed with the sensitive examination. (Sensitive examination includes inspection and/or palpation of the breasts, pelvis, prostate and anorectal regions). EXAM: BP 110/66 Wt 174 lb (78.9kg) LMP 02/11/2025 GENERAL: pleasant, female in no apparent distress HEENT: Normocephalic, atraumatic, mucus membranes moist, and no lesions NECK: Supple, full range of motion, no adenopathy, and thyroid normal DERMATOLOGY: Normal, without lesions, non-icteric, and non-hirsute CHEST: Normal inspiratory effort ABDOMEN: soft, non-tender, and no masses PELVIC: external genitalia normal, normal Bartholin's glands, urethra, [place]'s glands, no vulvar lesions, no cervical lesions, good vaginal support, physiologic discharge present, normal appearing perineal body and perianal region BIMANUAL: uterus normal size, shape and consistency, no adnexal masses,and Moderate tenderness NEURO: alert and oriented x3,exam grossly non-focal EXTREMITIES: normal Assessment & Plan Abnormal uterine bleeding (AUB) Orders: PELVIC US WHI; Future THYROID STIMULATING HORMONE; Future PROLACTIN; Future TESTOSTERONE, FREE AND TOTAL, BY EQUILIBRIUM ULTRAFILTRATION MASS SPECTROMETRY; Future DHEA-S BLD; Future HYDROXYPROGESTERONE-17; Future FOLLICLE STIMULATING HORMONE; Future LUTEINIZING HORMONE; Future ESTRADIOL-17B BLD; Future HEMOGLOBIN A1C; Future COMPREHENSIVE METABOLIC PANEL; Future LIPID PANEL, NONFASTING; Future COMPLETE BLOOD COUNT AND DIFFERENTIAL; Future IRON AND TIBC; Future FERRITIN; Future THU/TRICHOMONAS NAAT BACTERIAL VAGINOSIS NAAT GONORRHEA/CHLAMYDIA NAAT Will complete all testing and follow up after results. Discussed Pelvic floor PT, control, pelvic pain clinic Pelvic pain in female Orders: PELVIC US WHI; Future THYROID STIMULATING HORMONE; Future PROLACTIN; Future TESTOSTERONE, FREE AND TOTAL, BY EQUILIBRIUM ULTRAFILTRATION MASS SPECTROMETRY; Future DHEA-S BLD; Future HYDROXYPROGESTERONE-17; Future FOLLICLE STIMULATING HORMONE; Future LUTEINIZING HORMONE; Future ESTRADIOL-17B BLD; Future HEMOGLOBIN A1C; Future COMPREHENSIVE METABOLIC PANEL; Future LIPID PANEL, NONFASTING; Future COMPLETE BLOOD COUNT AND DIFFERENTIAL; Future IRON AND TIBC; Future FERRITIN; Future THU/TRICHOMONAS NAAT BACTERIAL VAGINOSIS NAAT GONORRHEA/CHLAMYDIA NAAT Nicolette Neumann APRN.CNM [facility]* Patient Instructions* Rhianna Jameson RD - 11/28/2024 1:15 PM EST Recommend starting Low FODMAP for 3 weeks or a trial of IBGard for 3 weeks. Message me with update on symptoms after 3 weeks. [email or web address] documented [facility] Hospital Discharge instructions Patient Education 11/22/2024 00:45:10 Gastroenteritis, Viral (Adult) Viral Gastroenteritis (Adult) Gastroenteritis is commonly called the stomach flu, although it has nothing to do with influenza.It is most often caused by a virus that affects the stomach and intestinal tract and usually lasts from 2 to 7 days. Common viruses causing gastroenteritis include norovirus, rotavirus, and hepatitisA. Non-viral causes of gastroenteritis include bacteria, parasites, and toxins. The danger from repeated vomiting or diarrhea is dehydration. This is the loss of too much fluid from the body. When this occurs, body fluids must be replaced. Antibiotics don't help with this illness because it is usually viral. Simple home treatment will be helpful. Symptoms of viral gastroenteritis may include: Watery, loose stools Stomach pain or abdominal cramps Fever and chills Nausea and vomiting Loss of bowel control Headache Home care Gastroenteritis is transmitted by contact with the stool or vomit of an infected person. This can occur from person to person or from contact with a contaminated surface. Follow these guidelines when caring for yourself at home: If symptoms are severe, rest at home for the next 24 hours or until you are feeling better. Wash your hands with soap and water or use alcohol-based betting clerks to prevent the spread of infection. Wash your hands after touching anyone who is sick. Wash your hands or use alcohol-based betting clerks after using the toilet and before meals. Clean the toilet after each use. Remember these tips when preparing food: People with diarrhea should not prepare or serve food to others. When preparing foods, wash your hands before and after. Wash your hands after using cutting boards, countertops, knives, or utensils that have been in contact with raw food. Dry your hands with a single use towel. Keep uncooked meats away from cooked and cjrmc-ab-vyp foods. Medicine You may use acetaminophen or NSAID medicines like ibuprofen or naproxen to control fever unless another medicine was given. If you have chronic liver or kidney disease, talk with your healthcare provider before using these medicines. Also talk with your provider if you've had a stomach ulcer or gastrointestinal bleeding. Don't give aspirin to anyone under 18 years of age who is ill with a fever. It may cause severe liver damage. Don't use NSAIDS is you are already taking one for another condition (like arthritis) or are on aspirin (such as for heart disease or after a stroke). If medicine for vomiting or diarrhea are prescribed, take these only as directed. Nausea and diarrhea medicines are generally OK unless you have bleeding, fever, or severe abdominal pain. Diet Follow these guidelines for food: Water and liquids are important so you don't get dehydrated. Drink a small amount at a time or suckon ice chips if you are vomiting. If you eat, avoid fatty, greasy, spicy, or fried foods. Don't eat dairy if you have diarrhea. This can make diarrhea worse. Avoid tobacco, alcohol, and caffeine which may worsen symptoms. During the first 24 hours (the first full day), follow the diet below: Beverages. Sports drinks, soft drinks without caffeine, alexandr julian, mineral water (plain or flavored), decaffeinated tea and coffee. If you are very dehydrated, sports drinks aren't a good choice. They have too much sugar and not enough electrolytes. In this case, commercially available products called oral rehydration solutions, are best. Soups. Eat clear broth, consomm , and bouillon. Desserts. Eat gelatin, ice pops, and fruit juice bars. During the next 24 hours (the second day), you may add the following to the above: Hot cereal, plain toast, bread, rolls, and crackers Plain noodles, rice, mashed potatoes, chicken noodle or rice soup Unsweetened canned fruit (avoid pineapple), bananas Limit fat intake to less than 15 grams per day. Do this by avoiding margarine, butter, oils, mayonnaise, sauces, gravies, fried foods, peanut butter, meat, poultry, and fish. Limit fiber and avoid raw or cooked vegetables, fresh fruits (except bananas), and bran cereals. Limit caffeine and chocolate. Don't use spices or seasonings other than salt. Limit dairy products. Avoid alcohol. During the next 24 hours: Gradually resume a normal diet as you feel better and your symptoms improve. If at any time it starts getting worse again, go back to clear liquids until you feel better. Follow-up care Follow up with your healthcare provider, or as advised. Call your provider if you don't get better within 24 hours or if diarrhea lasts more than a week. Also follow up if you are unable to keep downliquids and get dehydrated. If a stool (diarrhea) sample was taken, call as directed for the results. Call 911 Call 911 if any of these occur: Trouble breathing Chest pain Confused Severe drowsiness or trouble awakening Fainting or loss of consciousness Rapid heart rate Seizure Stiff neck When to seek medical advice Call your healthcare provider right away if any of these occur: Abdominal pain that gets worse Continued vomiting (unable to keep liquids down) Frequent diarrhea (more than 5 times a day) Blood in vomit or stool (black or red color) Dark urine, reduced urine output, or extreme thirst Weakness or dizziness Drowsiness Fever of 100.4 F (38 C) or higher, or as directed by your healthcare provider Donn romero [phone] [employer]. [address] [place] [address], [place] [address]. All rights reserved. This information is not intended as a substitute for professional medical care. Always follow yourhealthcare professional's instructions. Follow Up Care 11/21/2024 23:03:32 With:NICOLETTE ESQUIVEL Address: [address] [place] [phone] When:2-4 days Comments:Return to ED if symptoms worsen [facility] 01-02-2025 Note Discharge Instructions Thank you for allowing [facility] to assist you with your healthcare needs. The following is importantdischarge information regarding your hospital visit. Diagnosis from Today's Visit Gastroenteritis What to Do Next Instructions from Your Care Team No qualifying data available. Post Acute Orders No qualifying data available. You Need to Schedule the Following Appointments Follow Up with NICOLETTE ESQUIVEL When:Within 2-4 days Where:[address] [place] [phone] Additional Information: Return to ED if symptoms worsen Allergies Contrast dye Medications Please ask your primary doctor or pharmacist before taking any other medication not listed, including over the counter drugs, herbal medications, vitamins and or supplements as they may interact withyour home medications. What How Much When Why Instructions Last Dose New ondansetron (ondansetron 4 mg oral tablet, disintegrating) 1 tab(s) by mouth Every 6 hours as needed for Nausea/Vomiting Duration: 3 Days Printed Prescription Unchanged calcium carbonate (Tums) Chewed Once a day as needed for as needed for dyspepsia Unchanged dicyclomine (dicyclomine 20 mg oral tablet) 1 tab(s) by mouth Four (4) times a day Duration: 14 Days Unchanged fluticasone nasal (fluticasone 50 mcg/ inh NASAL spray) 2 spray(s) each nostril Once a day Acute bacterial rhinosinusitis Bilateral serous otitis media Duration: 30 Days shake well before using Unchanged multivitamin, ( AD) by mouth Once a day Unchanged pantoprazole (pantoprazole 20 mg oral enteric coated tablet) 1 tab(s) by mouth Once a day before a meal Unchanged SUMAtriptan (SUMAtriptan 50 mg oral tablet) 1 tab(s) by mouth Once a day as needed for as needed for migraine headache 1 tab onset , may repeat in 2 hrs. MAX 4 tab(s)/ 24hrs Please take this list to your next doctor s visit. Bring all medications you take, including over the counter medications, herbals and other supplements with you to your doctor s visit. Patients and families are reminded to discard old lists and to update any records with all medication providers or retail pharmacies. Medication Leaflets ondansetron (oral) (on ELISEO troy) What is the most important information I should know about ondansetron? Tell your doctor about all your other medicines. Some drugs should not be used with ondansetron. What is ondansetron? Ondansetron is used to prevent nausea and vomiting that may happen with certain cancer medicines (chemotherapy), or after surgery, or radiation treatment . Ondansetron may be used for purposes not listed in this medication guide. What should I discuss with my health care provider before taking ondansetron? You should not use ondansetron if you are allergic to it or similar medicines (dolasetron, granisetron, palonosetron). Some drugs should not be used with ondansetron. Your treatment plan may change if you also use apomorphine. Tell your doctor if you have or have ever had: an electrolyte imbalance (such as low blood levels of potassium or magnesium); congestive heart failure, slow heartbeats; heart rhythm disorder such as long QT syndrome (in you or a family member); an obstruction in the stomach or intestines, a change in bowel habits; a surgery on your stomach or intestines; or severe liver disease. The orally disintegrating tablet may contain phenylalanine and could be harmful if you have phenylketonuria (PKU). Tell your doctor if you also use stimulant medicine, opioid medicine, herbal products, or medicine for depression, mental illness, Parkinson's disease, migraine headaches, serious infections, or prevention of nausea and vomiting. An interaction with ondansetron could cause a serious condition called serotonin syndrome. Tell your doctor if you are or . Ondansetron is not approved for use by anyone younger than 4 years old. How should I take ondansetron? Follow all directions on your prescription label and read all medication guides or instruction sheets. Use the medicine exactly as directed. Ondansetron is usually taken just before surgery, chemotherapy, or radiation treatment. Follow yourdoctor's dosing instructions very carefully. Measure liquid medicine with the supplied measuring device (not a kitchen spoon). To take the orally disintegrating tablet: Keep the tablet in its blister pack until you are ready to take it. Open the package and peel back the foil. Use dry hands to remove the orally disintegrating tablet and place it in your mouth. Do not push a tablet through the foil or you may damage the tablet. Allow the orally disintegrating tablet to dissolve in your mouth without chewing. Do not swallow whole. Store in the original container at room temperature away from moisture, heat, and light. Store liquid medicine in an upright position. What happens if I miss a dose? Ondansetron is used when needed. If you are on a dosing schedule, skip any missed dose. Do not use two doses at one time. What happens if I overdose? Seek emergency medical attention or call the Poison Help line at . What should I avoid while taking ondansetron? Follow your doctor's instructions about any restrictions on food, beverages, or activity. What are the possible side effects of ondansetron? Get emergency medical help if you have signs of an allergic reaction: hives, difficult breathing, swelling of your face, lips, tongue, or throat. Seek medical attention right away if you have symptoms of serotonin syndrome such as: agitation, hallucinations, fever, sweating, shivering, fast heart rate, muscle stiffness, twitching, loss of coordination, nausea, vomiting, or diarrhea. Seek emergency medical help if you have signs of a heart attack: chest pain that spreads to your jaw or shoulder, nausea, and sweating. Call your doctor at once if you have: severe stomach pain, bloating, constipation, or any change in bowel habits; or dizziness, feeling lightheaded, fainting, slow, fast, or uneven heartbeats. Common side effects may include: diarrhea or constipation; headache; shortness of breath, rapid breathing, fast heartbeats; or feeling unwell, tiredness. This is not a complete list of side effects and others may occur. Call your doctor for medical advice about side effects. You may report side effects to FDA at 5-874-IEZ-1694. What other drugs will affect ondansetron? Ondansetron can cause a serious heart problem. Your risk may be higher if you also use certain other medicines for infections, asthma, heart problems, high blood pressure, depression, mental illness,cancer, malaria, or HIV. Many drugs can affect ondansetron. This includes prescription and [id number] medicines, vitamins, and herbal products. Not all possible interactions are listed here. Tell your doctor about all other medicines you use. Where can I get more information? Your doctor or pharmacist can provide more information about ondansetron. Remember, keep this and all other medicines out of the reach of children, never share your medicines with others, and use this medication only for the indication prescribed. Every effort has been made to ensure that the information provided by [employer]. ('[employer]') is accurate, up-to-date, and complete, but no guarantee is made to that effect. Drug information contained herein may be time sensitive. [employer] information has been compiled for use by healthcare practitioners and consumers in the [place] and therefore [employer] does not warrant that uses outside of the [place] are appropriate, unless specifically indicated otherwise. [employer] drug information does not endorse drugs, diagnose patients or recommend therapy. [employer] drug information isan informational resource designed to assist licensed healthcare practitioners in caring for their p atients and/or to serve consumers viewing this service as a supplement to, and not a substitute for, the expertise, skill, knowledge and judgment of healthcare practitioners. The absence of a warningfor a given drug or drug combination in no way should be construed to indicate that the drug or drug combination is safe, effective or appropriate for any given patient. [employer] does not assume any responsibility for any aspect of healthcare administered with the aid of information [employer] provides. The information contained herein is not intended to cover all possible uses, directions, precautions, warnings, drug interactions, allergic reactions, or adverse effects. If you have questions about the drugs you are taking, check with your doctor, nurse or pharmacist. Copyright 4139-9390 [employer]. Version: 17.. Revision Date: 08/14/2024. Education Materials Viral Gastroenteritis (Adult) Gastroenteritis is commonly called the stomach flu, although it has nothing to do with influenza.It is most often caused by a virus that affects the stomach and intestinal tract and usually lasts from 2 to 7 days. Common viruses causing gastroenteritis include norovirus, rotavirus, and hepatitisA. Non-viral causes of gastroenteritis include bacteria, parasites, and toxins. The danger from repeated vomiting or diarrhea is dehydration. This is the loss of too much fluid from the body. When this occurs, body fluids must be replaced. Antibiotics don't help with this illness because it is usually viral. Simple home treatment will be helpful. Symptoms of viral gastroenteritis may include: Watery, loose stools Stomach pain or abdominal cramps Fever and chills Nausea and vomiting Loss of bowel control Headache Home care Gastroenteritis is transmitted by contact with the stool or vomit of an infected person. This can occur from person to person or from contact with a contaminated surface. Follow these guidelines when caring for yourself at home: If symptoms are severe, rest at home for the next 24 hours or until you are feeling better. Wash your hands with soap and water or use alcohol-based betting clerks to prevent the spread of infection. Wash your hands after touching anyone who is sick. Wash your hands or use alcohol-based betting clerks after using the toilet and before meals. Clean the toilet after each use. Remember these tips when preparing food: People with diarrhea should not prepare or serve food to others. When preparing foods, wash your hands before and after. Wash your hands after using cutting boards, countertops, knives, or utensils that have been in contact with raw food. Dry your hands with a single use towel. Keep uncooked meats away from cooked and uckox-ws-lbq foods. Medicine You may use acetaminophen or NSAID medicines like ibuprofen or naproxen to control fever unless another medicine was given. If you have chronic liver or kidney disease, talk with your healthcare provider before using these medicines. Also talk with your provider if you've had a stomach ulcer or gastrointestinal bleeding. Don't give aspirin to anyone under 18 years of age who is ill with a fever. It may cause severe liver damage. Don't use NSAIDS is you are already taking one for another condition (like arthritis) or are on aspirin (such as for heart disease or after a stroke). If medicine for vomiting or diarrhea are prescribed, take these only as directed. Nausea and diarrhea medicines are generally OK unless you have bleeding, fever, or severe abdominal pain. Diet Follow these guidelines for food: Water and liquids are important so you don't get dehydrated. Drink a small amount at a time or suckon ice chips if you are vomiting. If you eat, avoid fatty, greasy, spicy, or fried foods. Don't eat dairy if you have diarrhea. This can make diarrhea worse. Avoid tobacco, alcohol, and caffeine which may worsen symptoms. During the first 24 hours (the first full day), follow the diet below: Beverages. Sports drinks, soft drinks without caffeine, alexandr julian, mineral water (plain or flavored), decaffeinated tea and coffee. If you are very dehydrated, sports drinks aren't a good choice. They have too much sugar and not enough electrolytes. In this case, commercially available products called oral rehydration solutions, are best. Soups. Eat clear broth, consomm , and bouillon. Desserts. Eat gelatin, ice pops, and fruit juice bars. During the next 24 hours (the second day), you may add the following to the above: Hot cereal, plain toast, bread, rolls, and crackers Plain noodles, rice, mashed potatoes, chicken noodle or rice soup Unsweetened canned fruit (avoid pineapple), bananas Limit fat intake to less than 15 grams per day. Do this by avoiding margarine, butter, oils, mayonnaise, sauces, gravies, fried foods, peanut butter, meat, poultry, and fish. Limit fiber and avoid raw or cooked vegetables, fresh fruits (except bananas), and bran cereals. Limit caffeine and chocolate. Don't use spices or seasonings other than salt. Limit dairy products. Avoid alcohol. During the next 24 hours: Gradually resume a normal diet as you feel better and your symptoms improve. If at any time it starts getting worse again, go back to clear liquids until you feel better. Follow-up care Follow up with your healthcare provider, or as advised. Call your provider if you don't get better within 24 hours or if diarrhea lasts more than a week. Also follow up if you are unable to keep downliquids and get dehydrated. If a stool (diarrhea) sample was taken, call as directed for the results. Call 911 Call 911 if any of these occur: Trouble breathing Chest pain Confused Severe drowsiness or trouble awakening Fainting or loss of consciousness Rapid heart rate Seizure Stiff neck When to seek medical advice Call your healthcare provider right away if any of these occur: Abdominal pain that gets worse Continued vomiting (unable to keep liquids down) Frequent diarrhea (more than 5 times a day) Blood in vomit or stool (black or red color) Dark urine, reduced urine output, or extreme thirst Weakness or dizziness Drowsiness Fever of 100.4 F (38 C) or higher, or as directed by your healthcare provider Donn romero [phone] [employer]. [address] [place] [address]. All rights reserved. This information is not intended as a substitute for professional medical care. Always follow yourhealthcare professional's instructions. Additional Information VACCINATE! IT SAVES LIVES! Members of the community who have not yet received the COVID-19 vaccine and would like to receive it can visit one of [facility] vaccine clinics. There are many vaccine clinic locations within the [facility]. For locations and available times, please visit [email or web address] It is important to note that some COVID mobile vaccine clinics are held outdoors and may be canceled in rainy or stormy conditions. To learn more about pediatric vaccinations (ages 5-11), we invite you to visit the [facility] webpage. [email or web address].org/pages/[email or web address] stions.htmlTo learn more about the COVID-19 vaccine, we invite you to visit the CDC website for a list of frequently asked questions. https://www.cdc.gov/coronavirus/2019-ncov/vaccines/faq.html [facility] Patient Portal Access Instructions: Stay connected with your healthcare team and access your personal medical information anytime with the [facility] Patient Portal. If you would like a full copy of your medical records please contact the [facility] Medical Records Department Tuesday through Tuesday between 8a.m. and 4:30p.m. Please follow the directions below to access the portal: 1.Access the email account you provided upon registration to the [facility].2.Look for an invitation email from [facility].3.Open the email and access the invitation link: Accept Invitation to [facility]4.Fill in the required pearl to create your account. Sign into [email or web address] with your username and password that you created in the above steps to stay up to date. You can then view a summary of results, a summary of your visits, and the ability to download your summaries to your computer or send the information securely to a physician. Remember that your healthcare information is confidential, so carefully consider who you will allow to register on the [facility] Patient Portal for access to your information. You can also access the [facility] [employer] Patient Portal on the [employer]. Simply click on Health Records under [employer] and then click on the [facility] logo. HOW TO SAFELY DISPOSE OF PRESCRIPTION MEDICATIONS Please use one of the following methods to safely dispose of your unused medications. 1.Use a drug disposal kit: the drug disposal pouch allows you to safely discard your old and unuseddrugs. Ask your nurse to give you one when you are discharged.2.Visit a local take-back location: Many local pharmacies and police departments have programs that collect old and unwanted prescriptiondrugs. Call your local pharmacy or go to http://bit.BringMeThat/7L8Sh6l to find one close to you.3.Make use of household items: Use cat litter or old coffee grounds to dispose medications if other options arenot available. Mix your drugs with these household products, seal them in an airtight container andthrow it into the garbage. Call [facility]: [phone] to be sure your drugs can be disposed of in this way. Some medicines may require a different approach.4.Never flush your medications down the toilet. IF YOU HAVE BEEN PRESCRIBED AN OPIOIDS FOR PAIN If you have been prescribed an opioid (such as hydrocodone, oxycodone or morphine), it is critical to understand the possible side effects and risks of opioid pain medications. Even when taken as directed, opioids can have several side effects including: Tolerance, meaning you might need to take more of a medication for the same pain relief. Nausea, vomiting and/or constipation. Sleepiness, dizziness, dry mouth, confusion, depression or itching. Physical dependence, meaning you have withdrawal symptoms when a medication is stopped ? this can develop within a few days. KNOW YOUR RESPONSIBILITIES It is important to know exactly how much and how often to take the opioid pain medications you are prescribed. Never take opioids in higher amounts or more often than prescribed. Do not combine opioids with alcohol or other drugs that cause drowsiness, such as benzodiazepines, also known as benzos,including diazepam and alprazolam, muscle relaxants or sleep aids. Never sell or share prescriptionopioids. This is illegal. Store opioids in a secure place and out of reach of others (including children, family, friends and visitors). The last page(s) of this document has been signed and retained as a CHART COPY Signatures Patient Education Materials Gastroenteritis, Viral (Adult) Medication Leaflets ondansetron (oral) My discharge plan and instructions have been reviewed and explained to me and I,ELSA LOUIE understand my current condition and have read and understand these discharge instructions. I have received a written copy of the plan/instructions. If I have questions, I am aware that I should contact my doctor. Patient/Clinic Nurse Signature: Date/Time: Relationship to Patient: Witness Name/Signature: Date/Time: [facility]12-30-2024 History of Present illness Narrative * Nicolette Hernandez RDGA - 11/19/2024 11:30 AM EST Radiology Service Progress Note PATIENT NAME: Elsa Hunt Liban DATE OF SERVICE: November 19, 2024 TIME: 1:23 PM PATIENT IDENTITY VERIFICATION COMPLETED USING TWO (2) IDENTIFIERS: Name and Date of confirmedby patient verbally. FALL SCREENING: Has the patient had 2 falls in the last year or 1 fall with injury or currently using an Ambulatory Assistive Device (Walker, Cane, Wheelchair, Crutches, etc.)? No PATIENT GENDER DATA: Female. status: : No status: NO. PATIENT RELEVANT IMPLANT DATA REVIEWED: Not Applicable PATIENT PRESENTS WITH AN IMPLANTABLE OR ATTACHED PEDIATRIC MEDICAL ASSISTANT: No RADIOLOGY DEPARTMENT: Ultrasound PERIPHERAL IV DATA: Not applicable SIGNED BY: Nicolette Hernandez RDMS RVT November 19, 2024 1:23 PM [facility] NoteHNO ID: [id number] Author: NICOLETTE HERNANDEZ RDMS Service: ? Author Type: Washtub Worker Type: Progress Notes Filed: 11/19/2024 13:23 Note Text: Radiology Service Progress Note PATIENT NAME: Elsa Louie DATE OF SERVICE: November 19, 2024 TIME: 1:23 PM PATIENT IDENTITY VERIFICATION COMPLETED USING TWO (2) IDENTIFIERS: Name and Date of confirmed by patient verbally. FALL SCREENING: Has the patient had 2 falls in the last year or 1 fall with injury or currently using an Ambulatory Assistive Device (Walker, Cane, Wheelchair, Crutches, etc.)? No PATIENT GENDER DATA: Female. status: : No status: NO. PATIENT RELEVANT IMPLANT DATA REVIEWED: Not Applicable PATIENT PRESENTS WITH AN IMPLANTABLE OR ATTACHED PEDIATRIC MEDICAL ASSISTANT: No RADIOLOGY DEPARTMENT: Ultrasound PERIPHERAL IV DATA: Not applicable SIGNED BY: Nicolette Hernandez RDMS RVT November 19, 2024 1:23 [facility]12-19-2024 NoteHNO ID: [id number] Author: RHIANNA JAMESON RD Service: ? Author Type: Registered Dietitian Type: Progress Notes Filed: 11/28/2024 13:15 Note Text: [facility] Nutrition Therapy: Virtual Consult - Initial Assessment I have communicated my name and active licensure. The patient?s identity and physical location were verified at the time of this visit. Either the patient or their legal automobile rental representative has been informed of the risks and benefits of -- and alternatives to -- treatment through a remote evaluation and consents to proceed with the evaluation remotely. Nutrition Diagnosis: Altered Gastrointestinal Tract Function, related to, Irritable Bowel Syndrome, as evidenced by gas, bloating, alternating constipation, diarrhea . RECOMMENDED MALNUTRITION DIAGNOSIS: NO MALNUTRITION IDENTIFIED NUTRITION CARE PLAN Nutrition Intervention 11/08/2024: Recommend starting Low FODMAP for 3 weeks or a trial of IBGard for 3 weeks. Message me with update on symptoms after 3 weeks. https://www.ibsfree.net/ https://www.[employer]/products/ibgard Nutrition Monitoring AND Evaluation: improved IBS symptoms Need for Follow up: PRN Patient presents with possible IBS and obesity for nutrition therapy. PMH:POTS Stomach always upset gas pains, crampy, full fast, bloating, alternating constipation and diarrhea, nausea. Dislikes taking medicine. Hx of eating disorder when younger-restricting, saw a counselor, never dx. Tried slippery elm bark, Low FODMAP diet-on her own. 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 Diet recall reveals daily intake of some high FODMAP foods, would benefit from close elimination to assessment improvement. Fluid intake includes fructose from juice. Patient's symptoms are: GI: bloating, constipation, diarrhea, gas , and nausea Weight Concerns: Obesity Diet History: Breakfast - smoothie-spinach, strawberry, banana or PB, banana, Garden of life plant protein - granola bar or eggs or skips Snack - none Lunch - salad w/ chicken, isa, olives, tomato, ranch/monegasque/thousand island or reel blade bender furnace tender AND croatian fries or granola bar or leftovers Snack - none Dinner - chicken + croatian fries + asparagus.broccoli/salad +/- strawberries -Home made soup -pasta + garlic bread Snack - varies Beverages - water, cranberry/pineapple juice, coffee w/ oat milk (rare), liquid IV/Nuun (not daily) Vitamins/Supplements - pre- vitamin Activity: Activities of Daily Living: Active 50% of the day. 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 RMR can't be calculated - Height unrecorded. Malnutrition Screening Significant unintentional weight loss? No Eating less than 75% of usual intake for more than 2 weeks? No Potential Signs of Inflammation: no identifiable sources Education Materials Provided: Low FODMAP Diet READINESS TO LEARN Cognitive ability: Alert and oriented Motivation to learn: Interested Family support: Unable to assess - Family not present Instruction provided to: Patient Patient learns best by: Written Instruction - Hand-outs Verbal Instruction Factors affecting learning: None Physical limitations affecting learning: None Referred by: Marjorie MATHIS Billing Type: Initial Assess/15 min 3 units SIGNATURE: Rhianna Jameson RD PATIENT NAME: Elsa Hunt Masters DATE: November 08, 2024 TIME: 2:34 PM [phone] History of Present illness Narrative* Rhianna Jameson RD - 11/08/2024 2:33 PM EST [facility] Nutrition Therapy: Virtual Consult - Initial Assessment I have communicated my name and active licensure. The patient s identity and physical location wereverified at the time of this visit. Either the patient or their legal automobile rental representative has been informed of the risks and benefits of -- and alternatives to -- treatment through a remote evaluation andconsents to proceed with the evaluation remotely. Nutrition Diagnosis: Altered Gastrointestinal Tract Function, related to, Irritable Bowel Syndrome,as evidenced by gas, bloating, alternating constipation, diarrhea . RECOMMENDED MALNUTRITION DIAGNOSIS: NO MALNUTRITION IDENTIFIED NUTRITION CARE PLAN Nutrition Intervention 11/08/2024: Recommend starting Low FODMAP for 3 weeks or a trial of IBGard for 3 weeks. Message me with update on symptoms after 3 weeks. https://www.ibsfree.net/ https://www.[employer]/products/ibgard Nutrition Monitoring & Evaluation: improved IBS symptoms Need for Follow up: PRN Patient presents with possible IBS and obesity for nutrition therapy. PMH:POTS Stomach always upset gas pains, crampy, full fast, bloating, alternating constipation and diarrhea, nausea. Dislikes taking medicine. Hx of eating disorder when younger-restricting, saw a counselor, never dx. Tried slippery elm bark, Low FODMAP diet-on her own. 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 Diet recall reveals daily intake of some high FODMAP foods, would benefit from close elimination toassessment improvement. Fluid intake includes fructose from juice. Patient's symptoms are: GI: bloating, constipation, diarrhea, gas , and nausea Weight Concerns: Obesity Diet History: Breakfast - smoothie-spinach, strawberry, banana or PB, banana, Garden of life plant protein - granola bar or eggs or skips Snack - none Lunch - salad w/ chicken, isa, olives, tomato, ranch/monegasque/thousand island or reel blade bender furnace tender & croatian fries or granola bar or leftovers Snack - none Dinner - chicken + croatian fries + asparagus.broccoli/salad +/- strawberries -Home made soup -pasta + garlic bread Snack - varies Beverages - water, cranberry/pineapple juice, coffee w/ oat milk (rare), liquid IV/Nuun (not daily) Vitamins/Supplements - pre-kalee vitamin Activity: Activities of Daily Living: Active 50% of the day. 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 RMR can't be calculated - Height unrecorded. Malnutrition Screening Significant unintentional weight loss? No Eating less than 75% of usual intake for more than 2 weeks? No Potential Signs of Inflammation: no identifiable sources Education Materials Provided: Low FODMAP Diet READINESS TO LEARN Cognitive ability: Alert and oriented Motivation to learn: Interested Family support: Unable to assess - Family not present Instruction provided to: Patient Patient learns best by: Written Instruction - Hand-outs Verbal Instruction Factors affecting learning: None Physical limitations affecting learning: None Referred by: Marjorie MATHIS Billing Type: Initial Assess/15 min 3 units SIGNATURE: Rhianna Jameson RD PATIENT NAME: Elsa Louie DATE: November 08, 2024 TIME: 2:34 PM PAGER: [phone] documented in [facility]24 NoteHNO ID: [id number] Author: ZOLTAN BETANCOURT MD Service: ? Author Type: Physician Type: Progress Notes Filed: 11/05/2024 08:35 Note Text: Virtual visit, 20 minutes, patient agreed I have communicated my name and active licensure. The patient's identity and physical location were verified at the time of this visit. Either the patient or their legal automobile rental representative has been informed of the risks and benefits of -- and alternatives to -- treatment through a remote evaluation and consents to proceed with the evaluation remotely. 19 yo with bloating, mild abd pain, feels like gas pains. No help with bentyl or pantoprazole. No help with a low FODMAP diet. Wt stable. 3 bm weekly, no bleeding. +contrast allergy for CT scan. Abd pain - suspect IBS. Will check Labs GB US Consult Nutrition Zoltan Betancourt, [facility]12-16-2024 History of Present illness Narrative* Zoltan Betancourt MD - 11/05/2024 8:17 AM EST Virtual visit, 20 minutes, patient agreed I have communicated my name and active licensure. The patient's identity and physical location wereverified at the time of this visit. Either the patient or their legal automobile rental representative has been informed of the risks and benefits of -- and alternatives to -- treatment through a remote evaluation andconsents to proceed with the evaluation remotely. 19 yo with bloating, mild abd pain, feels like gas pains. No help with bentyl or pantoprazole. No help with a low FODMAP diet. Wt stable. 3 bm weekly, no bleeding. +contrast allergy for CT scan. Abd pain - suspect IBS. Will check Labs GB US Consult Nutrition Zoltan Betancourt MD documented [facility] Evaluation + Plan note Future Scheduled Tests Laboratory* H. pylori Stool Ag, EIA 10/09/24 Radiology* CT Head or Brain w/o Contrast 03/15/24 [facility] 10-17-2024 Hospital Discharge instructions Patient Education 09/06/2024 00:10:51 Hypotension, Orthostatic Orthostatic Low Blood Pressure (Hypotension) A blood pressure reading is made up of 2 numbers There is a top number over a bottom number. The top number is the systolic pressure. The bottom number is the diastolic pressure. A normal blood pressure is a systolic pressure less than 120 over a diastolic pressure less than 80. Low blood pressure (hypotension) is a blood pressure that is less than what is normal for you. Orthostatic hypotension is a type of low blood pressure that occurs only when you change position from lying to standing. It can cause dizziness, lightheadedness, or fainting. Some medicines can cause orthostatic hypotension. These include: High blood pressure medicines Water pills (diuretics) Some heart medicines Some antidepressants Pain, anxiety, sedative, and sleeping medicines Other causes include: Dehydration from vomiting, diarrhea, or not getting enough fluids Severe infection High fever Blood loss, such as bleeding from the stomach or intestines Neurological diseases that impair the autonomic nervous system Treatment will depend on what is causing your low blood pressure. Home care Follow these guidelines when caring for yourself at home: Rest until your symptoms get better. Change positions slowly from lying to standing. When getting out of bed, sit on the side of the bedwith your legs down for at least 30 seconds before standing. This gives your body time to adjust tothe position change. Follow the treatment plan described by your healthcare provider. Follow-up care Follow up with your healthcare provider, or as advised. When to seek medical advice Call your healthcare provider right away if any of these occur: Dizziness, lightheadedness, or fainting Black or red color in your stools or vomit Diarrhea or vomiting that doesn t go away You aren t able to eat or drink Fever of 100.4 F (38 C) or higher, or as directed by your healthcare provider Burning when you urinate Foul-smelling urine [id number] [employer]. [address] [place] [address], [place] [address]. All rights reserved. This information is not intended as a substitute for professional medical care. Always follow yourhealthcare professional's instructions. Follow Up Care 09/05/2024 22:45:38 With:Go to emergency room if symptoms worsen Address:Unknown When:2-4 days With:NICOLETTE ESQUIVEL Address: [address] [place] [address]- [phone] When:2-4 days [facility] 10-17-2024 Note Discharge Instructions Thank you for allowing [facility] to assist you with your healthcare needs. The following is importantdischarge information regarding your hospital visit. Diagnosis from Today's Visit POTS (postural orthostatic tachycardia syndrome) What to Do Next Instructions from Your Care Team No qualifying data available. Post Acute Orders No qualifying data available. You Need to Schedule the Following Appointments Follow Up with Go to emergency room if symptoms worsen When:Within 2-4 days Follow Up with NICOLETTE ESQUIVEL When:Within 2-4 days Where:[address] [place] [phone] Allergies Contrast dye Medications Please ask your primary doctor or pharmacist before taking any other medication not listed, including over the counter drugs, herbal medications, vitamins and or supplements as they may interact withur home medications. What How Much When Instructions Last Dose Unchanged famotidine (Pepcid 20 mg oral tablet) 1 tab(s) by mouth Two (2) times a day Unchanged omeprazole (omeprazole 40 mg oral delayed release capsule) 1 cap by mouth Once a day before a meal Unchanged SUMAtriptan (SUMAtriptan 50 mg oral tablet) 1 tab(s) by mouth Once a day as needed for as needed for migraine headache 1 tab onset , may repeat in 2 hrs. MAX 4 tab(s)/ 24hrs Please take this list to your next doctor s visit. Bring all medications you take, including over the counter medications, herbals and other supplements with you to your doctor s visit. Patients and families are reminded to discard old lists and to update any records with all medication providers or retail pharmacies. Education Materials Orthostatic Low Blood Pressure (Hypotension) A blood pressure reading is made up of 2 numbers There is a top number over a bottom number. The top number is the systolic pressure. The bottom number is the diastolic pressure. A normal blood pressure is a systolic pressure less than 120 over a diastolic pressure less than 80. Low blood pressure (hypotension) is a blood pressure that is less than what is normal for you. Orthostatic hypotension is a type of low blood pressure that occurs only when you change position from lying to standing. It can cause dizziness, lightheadedness, or fainting. Some medicines can cause orthostatic hypotension. These include: High blood pressure medicines Water pills (diuretics) Some heart medicines Some antidepressants Pain, anxiety, sedative, and sleeping medicines Other causes include: Dehydration from vomiting, diarrhea, or not getting enough fluids Severe infection High fever Blood loss, such as bleeding from the stomach or intestines Neurological diseases that impair the autonomic nervous system Treatment will depend on what is causing your low blood pressure. Home care Follow these guidelines when caring for yourself at home: Rest until your symptoms get better. Change positions slowly from lying to standing. When getting out of bed, sit on the side of the bedwith your legs down for at least 30 seconds before standing. This gives your body time to adjust tothe position change. Follow the treatment plan described by your healthcare provider. Follow-up care Follow up with your healthcare provider, or as advised. When to seek medical advice Call your healthcare provider right away if any of these occur: Dizziness, lightheadedness, or fainting Black or red color in your stools or vomit Diarrhea or vomiting that doesn t go away You aren t able to eat or drink Fever of 100.4 F (38 C) or higher, or as directed by your healthcare provider Burning when you urinate Foul-smelling urine [id number] [employer]. [address] [place] [address], [place] [address]. All rights reserved. This information is not intended as a substitute for professional medical care. Always follow yourhealthcare professional's instructions. Additional Information VACCINATE! IT SAVES LIVES! Members of the community who have not yet received the COVID-19 vaccine and would like to receive it can visit one of [facility] vaccine clinics. There are many vaccine clinic locations within the [facility]. For locations and available times, please visit [email or web address] It is important to note that some COVID mobile vaccine clinics are held outdoors and may be canceled in rainy or stormy conditions. To learn more about pediatric vaccinations (ages 5-11), we invite you to visit the [facility] webpage. [email or web address]/[email or web address] [email or web address] learn more about the COVID-19 vaccine, we invite you to visit the CDC website for a list of frequently asked questions. https://www.cdc.gov/coronavirus/2019-ncov/vaccines/faq.html [facility] Patient Portal Access Instructions: Stay connected with your healthcare team and access your personal medical information anytime with the [facility] Patient Portal. If you would like a full copy of your medical records please contact the [facility] Medical Records Department Tuesday through Tuesday between 8a.m. and 4:30p.m. Please follow the directions below to access the portal: 1.Access the email account you provided upon registration to the hospital.2.Look for an invitation email from [facility].3.Open the email and access the invitation link: Accept Invitation to [facility]4.Fill in the required pearl to create your account. Sign into [email or web address] with your username and password that you created in the above steps to stay up to date. You can then view a summary of results, a summary of your visits, and the ability to download your summaries to your computer or send the information securely to a physician. Remember that your healthcare information is confidential, so carefully consider who you will allow to register on the [facility] Patient Portal for access to your information. You can also access the [facility] Patient Portal on the Member Desk kimber. Simply click on Health Records under [employer] and then click on the [facility] logo. HOW TO SAFELY DISPOSE OF PRESCRIPTION MEDICATIONS Please use one of the following methods to safely dispose of your unused medications. 1.Use a drug disposal kit: the drug disposal pouch allows you to safely discard your old and unuseddrugs. Ask your nurse to give you one when you are discharged.2.Visit a local take-back location: Many local pharmacies and police departments have programs that collect old and unwanted prescriptiondrugs. Call your local pharmacy or go to http://[employer].BringMeThat/8I9Fd3n to find one close to you.3.Make use of household items: Use cat litter or old coffee grounds to dispose medications if other options arenot available. Mix your drugs with these household products, seal them in an airtight container andthrow it into the garbage. Call [facility]: [phone] to be sure your drugs can be disposed of in this way. Some medicines may require a different approach.4.Never flush your medications down the toilet. IF YOU HAVE BEEN PRESCRIBED AN OPIOIDS FOR PAIN If you have been prescribed an opioid (such as hydrocodone, oxycodone or morphine), it is critical to understand the possible side effects and risks of opioid pain medications. Even when taken as directed, opioids can have several side effects including: Tolerance, meaning you might need to take more of a medication for the same pain relief. Nausea, vomiting and/or constipation. Sleepiness, dizziness, dry mouth, confusion, depression or itching. Physical dependence, meaning you have withdrawal symptoms when a medication is stopped ? this can develop within a few days. KNOW YOUR RESPONSIBILITIES It is important to know exactly how much and how often to take the opioid pain medications you are prescribed. Never take opioids in higher amounts or more often than prescribed. Do not combine opioids with alcohol or other drugs that cause drowsiness, such as benzodiazepines, also known as benzos,including diazepam and alprazolam, muscle relaxants or sleep aids. Never sell or share prescriptionopioids. This is illegal. Store opioids in a secure place and out of reach of others (including children, family, friends and visitors). The last page(s) of this document has been signed and retained as a CHART COPY Signatures Patient Education Materials Hypotension, Orthostatic Medication Leaflets My discharge plan and instructions have been reviewed and explained to me and I,SELSA understand my current condition and have read and understand these discharge instructions. I have received a written copy of the plan/instructions. If I have questions, I am aware that I should contact my doctor. Patient/Clinic Nurse Signature: Date/Time: Relationship to Patient: Witness Name/Signature: Date/Time: [facility]10-16-2024 NoteSinus rhythm RSR' in V1 or V2, right VCD or RVH Borderline T abnormalities, anterior leads Baseline wander in lead(s) V3,V5,V6 Electronic Signature: ROCIO REYNOLDS 09/05/2024 23:23:30[facility] 09-06-2024 Note ORIGINAL EXAMINATION: GASTRIC EMPTYING STUDY07/27/2024 3:04 pm TECHNIQUE: The patient received an oral radiolabeled solid-phase meal utilizing 2 point mCi of Tc-99m sulfur colloid in cooked egg. Sequential anterior and posterior images of the abdomen were then acquired over the next four hours. Computer quantification of gastric emptying (using geometric mean activity) was performed. COMPARISON: None HISTORY: ORDERING SYSTEM PROVIDED HISTORY: Reason for Exam: VOMITING, ABD PAIN, IBS FINDINGS: Sequential static images demonstrates radiotracer within the gastric lumen, progressively emptying into small bowel. Computer quantification demonstrates gastric retention as follows: 87 % at 0.5 hr (normal min 70%) 74 % at 1 hr (normal 30%-90%) 34 % at 2 hr (normal max 60%) 18 % at 3 hr (normal max 30%) 5 % at 4 hr (normal max 10%) IMPRESSION: Normal gastric emptying of radiolabeled solid meal, without evidence of gastroparesis. Interpreted by: Juan Zabala DO Preliminary Report By: Juan Zabala DO Electronically signed By Juan Zabala DO Dictated Date: 07/27/2024 3:34:16 PM Prelim Date: 07/27/2024 3:35:18 PM Sign Date: 07/27/2024 3:35:18 PM Ordering Provider[facility] [id number] Hospital Discharge instructions Patient Education 06/11/2024 16:11:16 GERD (Adult) GERD (Adult) The esophagus is a tube that carries food from the mouth to the stomach. A valve (the LES, lower esophageal sphincter) at the lower end of the esophagus prevents stomach acid from flowing upward. When this valve doesn't work properly, stomach contents may repeatedly flow back up (reflux) into the esophagus. This is called gastroesophageal reflux disease (GERD). GERD can irritate the esophagus. Itcan cause problems with pain, swallowing or breathing. In severe cases, GERD can cause recurrent pneumonia (from aspiration or breathing in particles) or other serious problems. Symptoms of reflux include burning, pressure or sharp pain in the upper abdomen or mid to lower chest. The pain can spread to the neck, back, or shoulder. There may be belching, an acid taste in the back of the throat, chronic cough, or sore throat, or hoarseness. GERD symptoms often occur during the day after a big meal. They can also occur at night when lying down. Home care Lifestyle changes can help reduce symptoms. If needed, your healthcare provider may prescribe medicines. Symptoms often improve with treatment, but if treatment is stopped, the symptoms often return after a few months. So most persons with GERD will need to continue treatment or get treatment on and off. Lifestyle changes Limit or avoid fatty, fried, and spicy foods, as well as coffee, chocolate, mint, and foods with high acid content such as tomatoes and citrus fruit and juices (orange, grapefruit, lemon). Don t eat large meals, especially at night. Frequent, smaller meals are best. Don't lie down right after eating. And don t eat anything 3 hours before going to bed. Don't drink alcohol or smoke. As much as possible, stay away from second hand smoke. If you are overweight, losing weight will reduce symptoms. Don't wear tight clothing around your stomach area. If your symptoms occur during sleep, use a foam wedge to elevate your upper body (not just your head.) Or, place 4 blocks under the head of your bed. Or use 2 bed risers under your bedframe. Medicines If needed, medicines can help relieve the symptoms of GERD and prevent damage to the esophagus. Discuss a medicine plan with your healthcare provider. This may include one or more of the following medicines: Antacids to help neutralize the normal acids in your stomach. Acid blockers (Histamine or H2 blockers) to decrease acid production. Acid inhibitors (proton pump inhibitors PPIs) to decrease acid production in a different way than the blockers. They may work better, but can take a little longer to take effect. Take an antacid 30 to 60 minutes after eating and at bedtime, but not at the same time as an acid karina. Try not to take medicines such as ibuprofen and aspirin. If you are taking aspirin for your heart or other medical reasons, talk to your healthcare provider about stopping it. Follow-up care Follow up with your healthcare provider or as advised by our staff. When to seek medical advice Call your healthcare provider if any of the following occur: Stomach pain gets worse or moves to the lower right abdomen (appendix area) Chest pain appears or gets worse, or spreads to the back, neck, shoulder, or arm An hljz-wlv-wmpbhml trial of medicine doesn't relieve your symptoms Weight loss that can't be explained Trouble or pain swallowing Frequent vomiting (can t keep down liquids) Blood in the stool or vomit (red or black in color) Feeling weak or dizzy Fever of 100.4 F (38 C) or higher, or as directed by your healthcare provider 8545-2363 [employer]. [address] [place] [address]. All rights reserved. This information is not intended as a substitute for professional medical care. Always follow yourhealthcare professional's instructions. Follow Up Care 06/11/2024 12:39:15 With:NICOLETTE ESQUIVEL APRN-TRISTA Address: [address] [facility] [place] [address] [phone] When:2-4 days [facility] 07-22-2024 Emergency department Discharge summary Discharge Instructions Thank you for allowing [facility] to assist you with your healthcare needs. The following is importantdischarge information regarding your hospital visit. What to Do Next Instructions from Your Care Team No qualifying data available. Post Acute Orders No qualifying data available. You Need to Schedule the Following Appointments Follow Up with NIOCLETTE ESQUIVEL APRN-SURVEY RESEARCH ANALYST When:Within 2-4 days Where:[address] [facility] [place] [address] [phone] Allergies Contrast dye Medications Please ask your primary doctor or pharmacist before taking any other medication not listed, including over the counter drugs, herbal medications, vitamins and or supplements as they may interact withyour home medications. What How Much When Instructions Last Dose New famotidine (Pepcid 20 mg oral tablet) 1 tab(s) by mouth Two (2) times a day Printed Prescription New omeprazole (omeprazole 40 mg oral delayed release capsule) 1 cap by mouth Once a day before a meal Printed Prescription Unchanged SUMAtriptan (SUMAtriptan 50 mg oral tablet) 1 tab(s) by mouth Once a day as needed for as needed for migraine headache 1 tab onset , may repeat in 2 hrs. MAX 4 tab(s)/ 24hrs Please take this list to your next doctor s visit. Bring all medications you take, including over the counter medications, herbals and other supplements with you to your doctor s visit. Patients and families are reminded to discard old lists and to update any records with all medication providers or retail pharmacies. Education Materials GERD (Adult) The esophagus is a tube that carries food from the mouth to the stomach. A valve (the LES, lower esophageal sphincter) at the lower end of the esophagus prevents stomach acid from flowing upward. When this valve doesn't work properly, stomach contents may repeatedly flow back up (reflux) into the esophagus. This is called gastroesophageal reflux disease (GERD). GERD can irritate the esophagus. Itcan cause problems with pain, swallowing or breathing. In severe cases, GERD can cause recurrent pneumonia (from aspiration or breathing in particles) or other serious problems. Symptoms of reflux include burning, pressure or sharp pain in the upper abdomen or mid to lower chest. The pain can spread to the neck, back, or shoulder. There may be belching, an acid taste in the back of the throat, chronic cough, or sore throat, or hoarseness. GERD symptoms often occur during the day after a big meal. They can also occur at night when lying down. Home care Lifestyle changes can help reduce symptoms. If needed, your healthcare provider may prescribe medicines. Symptoms often improve with treatment, but if treatment is stopped, the symptoms often return after a few months. So most persons with GERD will need to continue treatment or get treatment on and off. Lifestyle changes Limit or avoid fatty, fried, and spicy foods, as well as coffee, chocolate, mint, and foods with high acid content such as tomatoes and citrus fruit and juices (orange, grapefruit, lemon). Don t eat large meals, especially at night. Frequent, smaller meals are best. Don't lie down right after eating. And don t eat anything 3 hours before going to bed. Don't drink alcohol or smoke. As much as possible, stay away from second hand smoke. If you are overweight, losing weight will reduce symptoms. Don't wear tight clothing around your stomach area. If your symptoms occur during sleep, use a foam wedge to elevate your upper body (not just your head.) Or, place 4 blocks under the head of your bed. Or use 2 bed risers under your bedframe. Medicines If needed, medicines can help relieve the symptoms of GERD and prevent damage to the esophagus. Discuss a medicine plan with your healthcare provider. This may include one or more of the following medicines: Antacids to help neutralize the normal acids in your stomach. Acid blockers (Histamine or H2 blockers) to decrease acid production. Acid inhibitors (proton pump inhibitors PPIs) to decrease acid production in a different way than the blockers. They may work better, but can take a little longer to take effect. Take an antacid 30 to 60 minutes after eating and at bedtime, but not at the same time as an acid karina. Try not to take medicines such as ibuprofen and aspirin. If you are taking aspirin for your heart or other medical reasons, talk to your healthcare provider about stopping it. Follow-up care Follow up with your healthcare provider or as advised by our staff. When to seek medical advice Call your healthcare provider if any of the following occur: Stomach pain gets worse or moves to the lower right abdomen (appendix area) Chest pain appears or gets worse, or spreads to the back, neck, shoulder, or arm An vqqk-lfi-aopkksq trial of medicine doesn't relieve your symptoms Weight loss that can't be explained Trouble or pain swallowing Frequent vomiting (can t keep down liquids) Blood in the stool or vomit (red or black in color) Feeling weak or dizzy Fever of 100.4 F (38 C) or higher, or as directed by your healthcare provider [id number] [employer]. [address] [place] [address]. All rights reserved. This information is not intended as a substitute for professional medical care. Always follow yourhealthcare professional's instructions. Additional Information VACCINATE! IT SAVES LIVES! Members of the community who have not yet received the COVID-19 vaccine and would like to receive it can visit one of [facility] vaccine clinics. There are many vaccine clinic locations within the [facility]. For locations and available times, please visit www.[email or web address].[place].gov/. It is important to note that some COVID mobile vaccine clinics are held outdoors and may be canceled in rainy or stormy conditions. To learn more about pediatric vaccinations (ages 5-11), we invite you to visit the [facility] webpage. https://www.[email or web address]/[email or web address]-Ctjthvouym-Qsgjr-[email or web address] stions.htmlTo learn more about the COVID-19 vaccine, we invite you to visit the CDC website for a list of frequently asked questions. https://www.cdc.gov/coronavirus/2019-ncov/vaccines/faq.html [facility] Patient Portal Access Instructions: Stay connected with your healthcare team and access your personal medical information anytime with the [facility] Patient Portal. If you would like a full copy of your medical records please contact the [facility] Medical Records Department Tuesday through Tuesday between 8a.m. and 4:30p.m. Please follow the directions below to access the portal: 1.Access the email account you provided upon registration to the [facility].2.Look for an invitation email from [facility].3.Open the email and access the invitation link: Accept Invitation to [facility]4.Fill in the required pearl to create your account. Sign into [email or web address] with your username and password that you created in the above steps to stay up to date. You can then view a summary of results, a summary of your visits, and the ability to download your summaries to your computer or send the information securely to a physician. Remember that your healthcare information is confidential, so carefully consider who you will allow to register on the [facility] Patient Portal for access to your information. You can also access the [facility] Patient Portal on the Member [employer] kimber. Simply click on Health Records under [employer] and then click on the [employer] logo. HOW TO SAFELY DISPOSE OF PRESCRIPTION MEDICATIONS Please use one of the following methods to safely dispose of your unused medications. 1.Use a drug disposal kit: the drug disposal pouch allows you to safely discard your old and unuseddrugs. Ask your nurse to give you one when you are discharged.2.Visit a local take-back location: Many local pharmacies and police departments have programs that collect old and unwanted prescriptiondrugs. Call your local pharmacy or go to http://[employer]BringMeThat/8G3Xx8c to find one close to you.3.Make use of household items: Use cat litter or old coffee grounds to dispose medications if other options arenot available. Mix your drugs with these household products, seal them in an airtight container andthrow it into the garbage. Call [facility]: [phone] to be sure your drugs can be disposed of in this way. Some medicines may require a different approach.4.Never flush your medications down the toilet. IF YOU HAVE BEEN PRESCRIBED AN OPIOIDS FOR PAIN If you have been prescribed an opioid (such as hydrocodone, oxycodone or morphine), it is critical to understand the possible side effects and risks of opioid pain medications. Even when taken as directed, opioids can have several side effects including: Tolerance, meaning you might need to take more of a medication for the same pain relief. Nausea, vomiting and/or constipation. Sleepiness, dizziness, dry mouth, confusion, depression or itching. Physical dependence, meaning you have withdrawal symptoms when a medication is stopped ? this can develop within a few days. KNOW YOUR RESPONSIBILITIES It is important to know exactly how much and how often to take the opioid pain medications you are prescribed. Never take opioids in higher amounts or more often than prescribed. Do not combine opioids with alcohol or other drugs that cause drowsiness, such as benzodiazepines, also known as benzos,including diazepam and alprazolam, muscle relaxants or sleep aids. Never sell or share prescriptionopioids. This is illegal. Store opioids in a secure place and out of reach of others (including children, family, friends and visitors). The last page(s) of this document has been signed and retained as a CHART COPY Signatures Patient Education Materials GERD (Adult) Medication Leaflets My discharge plan and instructions have been reviewed and explained to me and I,MASTERSELSA understand my current condition and have read and understand these discharge instructions. I have received a written copy of the plan/instructions. If I have questions, I am aware that I should contact my doctor. Patient/Clinic Nurse Signature: Date/Time: Relationship to Patient: Witness Name/Signature: Date/Time: [facility]07-22-2024 Note ORIGINAL EXAMINATION: CT OF THE ABDOMEN AND PELVIS WITH CONTRAST06/11/2024 3:27 pm TECHNIQUE: CT of the abdomen and pelvis was performed with the administration of intravenous contrast. Multiplanar reformatted images are provided for review. Automated exposure control, iterative reconstruction, and/or weight based adjustment of the mA/kV was utilized to reduce the radiation dose to as low as reasonably achievable. COMPARISON: 09/22/2023 HISTORY: ORDERING SYSTEM PROVIDED HISTORY: Reason for Exam: pain epigastric pain, reported blood in stool. FINDINGS: The visualized lower thoracic structures are unremarkable. No acute osseous or soft tissue abnormality. The liver is unremarkable in size, contour, and attenuation. There is no intra or extrahepatic biliary duct dilation. No focal mass identified. The gallbladder, pancreas, spleen, and adrenal glands are unremarkable. The kidneys enhance symmetrically. No right hydronephrosis. A left extrarenal pelvis noted.. The ureters are normal course and caliber. There is no evidence of urolithiasis. The visualized esophagus, stomach, and duodenum are unremarkable. The visualized aorta is nonaneurysmal. The GI tract exhibits no acute abnormalities. No pathologically enlarged retroperitoneal, mesenteric, or pelvic lymph nodes are identified. There is no free intraperitoneal air or fluid. The urinary bladder is well-distended without wall thickening or focal mass. The uterus is within normal limits. Trace free fluid is noted in the pelvis which is likely physiologic. IMPRESSION: No acute process within the abdomen or pelvis. I have personally reviewed the images of this examination and agree with the resident's findings and interpretation. Interpreted by: Wilfred Hernandez MD Preliminary Report By: Imelda Hernandez Electronically signed By Wilfred Hernandez MD Dictated Date: 06/11/2024 3:38:27 PM Prelim Date: 06/11/2024 3:58:38 PM Sign Date: 06/11/2024 3:58:38 PM Ordering Provider: [facility]06-18-2024 Hospital Discharge instructions Patient Education 05/07/2024 23:50:12 Bladder Infection, Female (Adult) Bladder Infection, Female (Adult) Urine is normally doesn't have any bacteria in it. But bacteria can get into the urinary tract fromthe skin around the rectum. Or they can travel in the blood from elsewhere in the body. Once they are in your urinary tract, they can cause infection in the urethra (urethritis), the bladder (cystitis), or the kidneys (pyelonephritis). The most common place for an infection is in the bladder. This is called a bladder infection. This is one of the most common infections in women. Most bladder infections are easily treated. They are not serious unless the infection spreads to the kidney. The phrases bladder infection, UTI, and cystitis are often used to describe the same thing. But they are not always the same. Cystitis is an inflammation of the bladder. The most common cause of cystitis is an infection. Symptoms The infection causes inflammation in the urethra and bladder. This causes many of the symptoms. Themost common symptoms of a bladder infection are: Pain or burning when urinating Having to urinate more often than usual Urgent need to urinate Only a small amount of urine comes out Blood in urine Abdominal discomfort. This is usually in the lower abdomen above the pubic bone. Cloudy urine Strong- or bad-smelling urine Unable to urinate (urinary retention) Unable to hold urine in (urinary incontinence) Fever Loss of appetite Confusion (in older adults) Causes Bladder infections are not contagious. You can't get one from someone else, from a toilet seat, or from sharing a bath. The most common cause of bladder infections is bacteria from the bowels. The bacteria get onto the skin around the opening of the urethra. From there, they can get into the urine and travel up to thebladder, causing inflammation and infection. This usually happens because of: Wiping improperly after urinating. Always wipe from front to back. Bowel incontinence Procedures such as having a catheter inserted Older age Not emptying your bladder. This can allow bacteria a chance to grow in your urine. Dehydration Constipation Sex Use of a diaphragm for control Treatment Bladder infections are diagnosed by a urine test. They are treated with antibiotics and usually clear up quickly without complications. Treatment helps prevent a more serious kidney infection. Medicines Medicines can help in the treatment of a bladder infection: Take antibiotics until they are used up, even if you feel better. It is important to finish them tomake sure the infection has cleared. You can use acetaminophen or ibuprofen for pain, fever, or discomfort, unless another medicine was prescribed. If you have chronic liver or kidney disease, talk with your healthcare provider before using these medicines. Also talk with your provider if you've ever had a stomach ulcer or gastrointestinal bleeding, or are taking blood-thinner medicines. If you are given phenazopydridine to reduce burning with urination, it will cause your urine to become a bright orange color. This can stain clothing. Care and prevention These self-care steps can help prevent future infections: Drink plenty of fluids to prevent dehydration and flush out your bladder. Do this unless you must restrict fluids for other health reasons, or your doctor told you not to. Proper cleaning after going to the bathroom is important. Wipe from front to back after using the toilet to prevent the spread of bacteria. Urinate more often. Don't try to hold urine in for a long time. Wear loose-fitting clothes and cotton underwear. Avoid tight-fitting pants. Improve your diet and prevent constipation. Eat more fresh fruit and vegetables, and fiber, and less junk and fatty foods. Avoid sex until your symptoms are gone. Avoid caffeine, alcohol, and spicy foods. These can irritate your bladder. Urinate right after intercourse to flush out your bladder. If you use control pills and have frequent bladder infections, discuss it with your doctor. Follow-up care Call your healthcare provider if all symptoms are not gone after 3 days of treatment. This is especially important if you have repeat infections. If a culture was done, you will be told if your treatment needs to be changed. If directed, you cancall to find out the results. If X-rays were done, you will be told if the results will affect your treatment. Call 911 Call 911 if any of the following occur: Trouble breathing Hard to wake up or confusion Fainting or loss of consciousness Rapid heart rate When to seek medical advice Call your healthcare provider right away if any of these occur: Fever of 100.4 F (38.0 C) or higher, or as directed by your healthcare provider Symptoms are not better by the third day of treatment Back or belly (abdominal) pain that gets worse Repeated vomiting, or unable to keep medicine down Weakness or dizziness Vaginal discharge Pain, redness, or swelling in the outer vaginal area (labia) 0067-1724 [employer]. [address] [place] [address]. All rights reserved. This information is not intended as a substitute for professional medical care. Always follow yourhealthcare professional's instructions. Follow Up Care 05/07/2024 23:03:24 With:NICOLETTE ESQUIVEL APRN-SURVEY RESEARCH ANALYST Address: [address] [place] [phone] When:2-4 days [facility] 06-17-2024 Note Discharge Instructions Thank you for allowing [facility] to assist you with your healthcare needs. The following is importantdischarge information regarding your hospital visit. What to Do Next Instructions from Your Care Team No qualifying data available. Post Acute Orders No qualifying data available. You Need to Schedule the Following Appointments Follow Up with NICOLETTE ESQUIVEL APRN-SURVEY RESEARCH ANALYST When:Within 2-4 days Where:[address] [place] [phone] Allergies Contrast dye Medications Please ask your primary doctor or pharmacist before taking any other medication not listed, including over the counter drugs, herbal medications, vitamins and or supplements as they may interact withur home medications. What How Much When Instructions Last Dose New cephalexin (cephalexin 500 mg oral capsule) 1 cap by mouth Two (2) times a day Duration: 5 Days Take with a probiotic Printed Prescription Unchanged SUMAtriptan (SUMAtriptan 50 mg oral tablet) 1 tab(s) by mouth Once a day as needed for as needed for migraine headache 1 tab onset , may repeat in 2 hrs. MAX 4 tab(s)/ 24hrs Please take this list to your next doctor s visit. Bring all medications you take, including over the counter medications, herbals and other supplements with you to your doctor s visit. Patients and families are reminded to discard old lists and to update any records with all medication providers or retail pharmacies. Education Materials Bladder Infection, Female (Adult) Urine is normally doesn't have any bacteria in it. But bacteria can get into the urinary tract fromthe skin around the rectum. Or they can travel in the blood from elsewhere in the body. Once they are in your urinary tract, they can cause infection in the urethra (urethritis), the bladder (cystitis), or the kidneys (pyelonephritis). The most common place for an infection is in the bladder. This is called a bladder infection. This is one of the most common infections in women. Most bladder infections are easily treated. They are not serious unless the infection spreads to the kidney. The phrases bladder infection, UTI, and cystitis are often used to describe the same thing. But they are not always the same. Cystitis is an inflammation of the bladder. The most common cause of cystitis is an infection. Symptoms The infection causes inflammation in the urethra and bladder. This causes many of the symptoms. Themost common symptoms of a bladder infection are: Pain or burning when urinating Having to urinate more often than usual Urgent need to urinate Only a small amount of urine comes out Blood in urine Abdominal discomfort. This is usually in the lower abdomen above the pubic bone. Cloudy urine Strong- or bad-smelling urine Unable to urinate (urinary retention) Unable to hold urine in (urinary incontinence) Fever Loss of appetite Confusion (in older adults) Causes Bladder infections are not contagious. You can't get one from someone else, from a toilet seat, or from sharing a bath. The most common cause of bladder infections is bacteria from the bowels. The bacteria get onto the skin around the opening of the urethra. From there, they can get into the urine and travel up to thebladder, causing inflammation and infection. This usually happens because of: Wiping improperly after urinating. Always wipe from front to back. Bowel incontinence Procedures such as having a catheter inserted Older age Not emptying your bladder. This can allow bacteria a chance to grow in your urine. Dehydration Constipation Sex Use of a diaphragm for control Treatment Bladder infections are diagnosed by a urine test. They are treated with antibiotics and usually clear up quickly without complications. Treatment helps prevent a more serious kidney infection. Medicines Medicines can help in the treatment of a bladder infection: Take antibiotics until they are used up, even if you feel better. It is important to finish them tomake sure the infection has cleared. You can use acetaminophen or ibuprofen for pain, fever, or discomfort, unless another medicine was prescribed. If you have chronic liver or kidney disease, talk with your healthcare provider before using these medicines. Also talk with your provider if you've ever had a stomach ulcer or gastrointestinal bleeding, or are taking blood-thinner medicines. If you are given phenazopydridine to reduce burning with urination, it will cause your urine to become a bright orange color. This can stain clothing. Care and prevention These self-care steps can help prevent future infections: Drink plenty of fluids to prevent dehydration and flush out your bladder. Do this unless you must restrict fluids for other health reasons, or your doctor told you not to. Proper cleaning after going to the bathroom is important. Wipe from front to back after using the toilet to prevent the spread of bacteria. Urinate more often. Don't try to hold urine in for a long time. Wear loose-fitting clothes and cotton underwear. Avoid tight-fitting pants. Improve your diet and prevent constipation. Eat more fresh fruit and vegetables, and fiber, and less junk and fatty foods. Avoid sex until your symptoms are gone. Avoid caffeine, alcohol, and spicy foods. These can irritate your bladder. Urinate right after intercourse to flush out your bladder. If you use control pills and have frequent bladder infections, discuss it with your doctor. Follow-up care Call your healthcare provider if all symptoms are not gone after 3 days of treatment. This is especially important if you have repeat infections. If a culture was done, you will be told if your treatment needs to be changed. If directed, you cancall to find out the results. If X-rays were done, you will be told if the results will affect your treatment. Call 911 Call 911 if any of the following occur: Trouble breathing Hard to wake up or confusion Fainting or loss of consciousness Rapid heart rate When to seek medical advice Call your healthcare provider right away if any of these occur: Fever of 100.4 F (38.0 C) or higher, or as directed by your healthcare provider Symptoms are not better by the third day of treatment Back or belly (abdominal) pain that gets worse Repeated vomiting, or unable to keep medicine down Weakness or dizziness Vaginal discharge Pain, redness, or swelling in the outer vaginal area (labia) 7661-0696 [employer]. [address] [place] [address]. All rights reserved. This information is not intended as a substitute for professional medical care. Always follow yourhealthcare professional's instructions. Additional Information VACCINATE! IT SAVES LIVES! Members of the community who have not yet received the COVID-19 vaccine and would like to receive it can visit one of [facility] vaccine clinics. There are many vaccine clinic locations within the [facility]. For locations and available times, please visit www.[email or web address].[place].gov/. It is important to note that some COVID mobile vaccine clinics are held outdoors and may be canceled in rainy or stormy conditions. To learn more about pediatric vaccinations (ages 5-11), we invite you to visit the [facility] webpage. https://www.[facility].org/pages/0582-Htvuk-Ywwuybhtbfs-Nsogyfzmyy-Vrrkd-Gom stions.htmlTo learn more about the COVID-19 vaccine, we invite you to visit the CDC website for a list of frequently asked questions. https://www.cdc.gov/coronavirus/2019-ncov/vaccines/faq.html [facility] [employer] Patient [facility] Access Instructions: Stay connected with your healthcare team and access your personal medical information anytime with the [facility] Patient Portal. If you would like a full copy of your medical records please contact the [facility] Medical Records Department Tuesday through Tuesday between 8a.m. and 4:30p.m. Please follow the directions below to access the portal: 1.Access the email account you provided upon registration to the [facility].2.Look for an invitation email from [facility].3.Open the email and access the invitation link: Accept Invitation to [facility]4.Fill in the required pearl to create your account. Sign into [email or web address] with your username and password that you created in the above steps to stay up to date. You can then view a summary of results, a summary of your visits, and the ability to download your summaries to your computer or send the information securely to a physician. Remember that your healthcare information is confidential, so carefully consider who you will allow to register on the [facility] Patient Portal for access to your information. You can also access the [facility] Patient Portal on the [employer]. Simply click on Health Records under [employer] and then click on the [employer] logo. HOW TO SAFELY DISPOSE OF PRESCRIPTION MEDICATIONS Please use one of the following methods to safely dispose of your unused medications. 1.Use a drug disposal kit: the drug disposal pouch allows you to safely discard your old and unuseddrugs. Ask your nurse to give you one when you are discharged.2.Visit a local take-back location: Many local pharmacies and police departments have programs that collect old and unwanted prescriptiondrugs. Call your local pharmacy or go to http://[employer].BringMeThat/7O0Yc9b to find one close to you.3.Make use of household items: Use cat litter or old coffee grounds to dispose medications if other options arenot available. Mix your drugs with these household products, seal them in an airtight container andthrow it into the garbage. Call [facility]: [phone] to be sure your drugs can be disposed of in this way. Some medicines may require a different approach.4.Never flush your medications down the toilet. IF YOU HAVE BEEN PRESCRIBED AN OPIOIDS FOR PAIN If you have been prescribed an opioid (such as hydrocodone, oxycodone or morphine), it is critical to understand the possible side effects and risks of opioid pain medications. Even when taken as directed, opioids can have several side effects including: Tolerance, meaning you might need to take more of a medication for the same pain relief. Nausea, vomiting and/or constipation. Sleepiness, dizziness, dry mouth, confusion, depression or itching. Physical dependence, meaning you have withdrawal symptoms when a medication is stopped ? this can develop within a few days. KNOW YOUR RESPONSIBILITIES It is important to know exactly how much and how often to take the opioid pain medications you are prescribed. Never take opioids in higher amounts or more often than prescribed. Do not combine opioids with alcohol or other drugs that cause drowsiness, such as benzodiazepines, also known as benzos,including diazepam and alprazolam, muscle relaxants or sleep aids. Never sell or share prescriptionopioids. This is illegal. Store opioids in a secure place and out of reach of others (including children, family, friends and visitors). The last page(s) of this document has been signed and retained as a CHART COPY Signatures Patient Education Materials Bladder Infection, Female (Adult) Medication Leaflets My discharge plan and instructions have been reviewed and explained to me and I,MASTERSELSA understand my current condition and have read and understand these discharge instructions. I have received a written copy of the plan/instructions. If I have questions, I am aware that I should contact my doctor. Patient/Clinic Nurse Signature: Date/Time: Relationship to Patient: Witness Name/Signature: Date/Time: [facility]06-17-2024 NoteSinus rhythm Electronic Signature: SADAF BATISTA DO 05/07/2024 23:30:23[facility] 04-25-2024 Evaluation + Plan note Future Scheduled Tests Radiology* CT Head or Brain w/o Contrast 03/15/24 * US Pelvis Non-OB W/Transvaginal 10/06/23 [facility] 04-25-2024 Note ORIGINAL HISTORY: Headache COMPARISON: No TECHNIQUE: Routine noncontrast head CT, with sagittal and coronal reconstructions. This exam was performed according to our departmental dose optimization program, and includes the following measures where applicable: automated exposure control, adjustment of the mAs and/or kVp according to patient size and/or exam, and an iterative reconstruction algorithm. FINDINGS: The ventricles and sulci are normal in size and configuration. There are no abnormal intra or extra-axial fluid collections. Lorenzo-white matter differentiation is maintained. The calvaria and the bones of the base of the skull are intact. IMPRESSION: Normal examination. Interpreted by: Lon Almaguer MD Preliminary Report By: Lon Almaguer MD Electronically signed By Lon Almaguer MD Dictated Date: 03/15/2024 1:48:50 PM Prelim Date: 03/15/2024 2:12:13 PM Sign Date: 03/15/2024 2:12:13 PM Ordering Provider: NICOLETTE Escudero [facility]12-04-2023 Hospital Discharge instructions Patient Education 10/24/2023 21:17:23 Pain, Acute, Uncertain Cause Acute Pain, Uncertain Cause Pain can be caused by many conditions that range from very minor to very serious. In some cases, though, pain comes and goes with no apparent cause. We were not able to find the exact cause for your pain. At this time there is no sign of any serious illness causing your pain. More tests may be needed to determine the cause. In many cases, pain like this goes away by itself. Home care Take any medicines as prescribed. If another medicine was not prescribed for pain, you can take an anlv-epp-rphmexu pain medicine such as ibuprofen or acetaminophen. Use these as directed on the label. Follow-up care Follow up with your healthcare provider or our staff as directed. When to seek medical advice Call your healthcare provider for any of the following: Pain changes in pattern Pain doesn't lessen or gets worse New symptoms appear Fever of 100.4 F (38 C) or higher, or as directed by your healthcare provider 4155-3199 [employer]. [address] [place] [address], [place] [address]. All rights reserved. This information is not intended as a substitute for professional medical care. Always follow yourhealthcare professional's instructions. Follow Up Care 10/24/2023 20:56:01 With:NICOLETTE ESQUIVEL DIRECTOR OF CORPORATE STRATEGY-SURVEY RESEARCH ANALYST Address: [address] [facility] [place] [phone] When:2-4 days [facility] 12-04-2023 Note Discharge Instructions Thank you for allowing [facility] to assist you with your healthcare needs. The following is importantdischarge information regarding your hospital visit. Diagnosis from Today's Visit Leg pain-swelling Pain in right leg What to Do Next Instructions from Your Care Team Discharge ED Outpatient Vascular Lab - Ordered -- Test Requested: venous ultrasound, Lower extremity, Right, Test Reason: Pain, Mon-Fri 8am-4:30pm: Call [phone] at 7:30am to schedule a same day appointment for testing. Please be aware there may be a short wait time. Post Acute Orders No qualifying data available. You Need to Schedule the Following Appointments Follow Up with NICOLETTE ESQUIVEL When Within 2-4 days Where: [address] [place] [phone] Allergies Contrast dye Medications Please ask your primary doctor or pharmacist before taking any other medication not listed, including over the counter drugs, herbal medications, vitamins and or supplements as they may interact withyour home medications. What How Much When Why Instructions Last Dose Unchanged famotidine (famotidine 20 mg oral tablet) 1 tab(s) by mouth Two (2) times a day Epigastric pain Nausea & vomiting Duration: 30 Days Unchanged multivitamin, ( Multivitamins) 1 tab(s) by mouth Once a day Unchanged omeprazole (omeprazole 40 mg oral delayed release capsule) 1 cap by mouth Once a day GERD (gastroesophageal reflux disease) Duration: 30 Days Unchanged ondansetron (ondansetron 4 mg oral tablet, disintegrating) 1 tab(s) by mouth Every 6 hours as needed for Nausea/Vomiting Nausea & vomiting Please take this list to your next doctor s visit. Bring all medications you take, including over the counter medications, herbals and other supplements with you to your doctor s visit. Patients and families are reminded to discard old lists and to update any records with all medication providers or retail pharmacies. Education Materials Acute Pain, Uncertain Cause Pain can be caused by many conditions that range from very minor to very serious. In some cases, though, pain comes and goes with no apparent cause. We were not able to find the exact cause for your pain. At this time there is no sign of any serious illness causing your pain. More tests may be needed to determine the cause. In many cases, pain like this goes away by itself. Home care Take any medicines as prescribed. If another medicine was not prescribed for pain, you can take an lsdf-kjl-zpsukix pain medicine such as ibuprofen or acetaminophen. Use these as directed on the label. Follow-up care Follow up with your healthcare provider or our staff as directed. When to seek medical advice Call your healthcare provider for any of the following: Pain changes in pattern Pain doesn't lessen or gets worse New symptoms appear Fever of 100.4 F (38 C) or higher, or as directed by your healthcare provider 3136-8644 [employer]. [address] [place] [address]. All rights reserved. This information is not intended as a substitute for professional medical care. Always follow yourhealthcare professional's instructions. Additional Information VACCINATE! IT SAVES LIVES! Members of the community who have not yet received the COVID-19 vaccine and would like to receive it can visit one of [facility] vaccine clinics. There are many vaccine clinic locations within the [facility]. For locations and available times, please visit www.[email or web address].gov/. It is important to note that some COVID mobile vaccine clinics are held outdoors and may be canceled in rainy or stormy conditions. To learn more about pediatric vaccinations (ages 5-11), we invite you to visit the [facility] webpage. https://www.[facility].org/pages/8769-Ofkki-Qkvvzfrkygq-Kuarrmftym-Segya-Wxv stions.htmlTo learn more about the COVID-19 vaccine, we invite you to visit the CDC website for a list of frequently asked questions. https://www.cdc.gov/coronavirus/2019-ncov/vaccines/faq.html [facility] Patient Portal Access Instructions: Stay connected with your healthcare team and access your personal medical information anytime with the [facility] Patient Portal. If you would like a full copy of your medical records please contact the [facility] Medical Records Department Tuesday through Tuesday between 8a.m. and 4:30p.m. Please follow the directions below to access the portal: 1.Access the email account you provided upon registration to the [facility].2.Look for an invitation email from [facility].3.Open the email and access the invitation link: Accept Invitation to [employer]4.Fill in the required pearl to create your account. Sign into [email or web address] with your username and password that you created in the above steps to stay up to date. You can then view a summary of results, a summary of your visits, and the ability to download your summaries to your computer or send the information securely to a physician. Remember that your healthcare information is confidential, so carefully consider who you will allow to register on the [facility] [employer] Patient Portal for access to your information. You can also access the [facility] Patient Portal on the [employer]. Simply click on Health Records under [employer] and then click on the [employer] logo. HOW TO SAFELY DISPOSE OF PRESCRIPTION MEDICATIONS Please use one of the following methods to safely dispose of your unused medications. 1.Use a drug disposal kit: the drug disposal pouch allows you to safely discard your old and unuseddrugs. Ask your nurse to give you one when you are discharged.2.Visit a local take-back location: Many local pharmacies and police departments have programs that collect old and unwanted prescriptiondrugs. Call your local pharmacy or go to http://bit.ly/6B4Fd1l to find one close to you.3.Make use of household items: Use cat litter or old coffee grounds to dispose medications if other options arenot available. Mix your drugs with these household products, seal them in an airtight container andthrow it into the garbage. Call [facility]: [phone] to be sure your drugs can be disposed of in this way. Some medicines may require a different approach.4.Never flush your medications down the toilet. IF YOU HAVE BEEN PRESCRIBED AN OPIOIDS FOR PAIN If you have been prescribed an opioid (such as hydrocodone, oxycodone or morphine), it is critical to understand the possible side effects and risks of opioid pain medications. Even when taken as directed, opioids can have several side effects including: Tolerance, meaning you might need to take more of a medication for the same pain relief. Nausea, vomiting and/or constipation. Sleepiness, dizziness, dry mouth, confusion, depression or itching. Physical dependence, meaning you have withdrawal symptoms when a medication is stopped ? this can develop within a few days. KNOW YOUR RESPONSIBILITIES It is important to know exactly how much and how often to take the opioid pain medications you are prescribed. Never take opioids in higher amounts or more often than prescribed. Do not combine opioids with alcohol or other drugs that cause drowsiness, such as benzodiazepines, also known as benzos,including diazepam and alprazolam, muscle relaxants or sleep aids. Never sell or share prescriptionopioids. This is illegal. Store opioids in a secure place and out of reach of others (including children, family, friends and visitors). The last page(s) of this document has been signed and retained as a CHART COPY Signatures Patient Education Materials Pain, Acute, Uncertain Cause Medication Leaflets My discharge plan and instructions have been reviewed and explained to me and I,SELSA understand my current condition and have read and understand these discharge instructions. I have received a written copy of the plan/instructions. If I have questions, I am aware that I should contact my doctor. Patient/Clinic Nurse Signature: Date/Time: Relationship to Patient: Witness Name/Signature: Date/Time: [facility]11-16-2023 Evaluation + Plan note Future Scheduled Tests Radiology* US Pelvis Non-OB W/Transvaginal 10/06/23 [facility] 11-13-2023 Note ORIGINAL EXAMINATION: DOUBLE CONTRAST UPPER GI SERIES 10/03/2023 TECHNIQUE: Double contrast upper GI series was performed with barium and air contrast. FLUOROSCOPY DOSE AND TYPE: Radiation Exposure Index: Kerma mGy, 31.2. 52 seconds. COMPARISON: CT abdomen pelvis 09/22/2023 HISTORY: ORDERING SYSTEM PROVIDED HISTORY: Reason for Exam: epigastric pain, nausea and vomiting FINDINGS: Monomer Recovery Operator image demonstrates a nonobstructive bowel gas pattern. There is moderate stool in the right colon. Patient swallowed barium without difficulty. Esophagus appears normal in course and caliber. Normal gastric distensibility. Stomach appears unremarkable. Duodenal bulb and sweep appear unremarkable. No hiatal hernia. Moderate to severe gastroesophageal reflux was identified. IMPRESSION: Moderate to severe gastroesophageal reflux. Interpreted by: Geeta Nguyen MD Preliminary Report By: Geeta Nguyen MD Electronically signed By Geeta Nguyen MD Dictated Date: 10/03/2023 9:31:03 AM Prelim Date: 10/03/2023 9:33:57 AM Sign Date: 10/03/2023 9:33:57 AM Ordering Provider: [facility]11-06-2023 Evaluation + Plan note Future Scheduled Tests Radiology* XR Upper GI w/ Air Contrast 09/26/23 * US Pelvis Non-OB W/Transvaginal 09/12/23 [facility] 11-03-2023 Hospital Discharge instructions Patient Education 09/22/2023 22:50:06 Abdominal Pain Abdominal Pain Abdominal pain is pain in the stomach or belly area. Everyone has this pain from time to time. In many cases it goes away on its own. But abdominal pain can sometimes be due to a serious problem, such as appendicitis. So it s important to know when to get help. Causes of abdominal pain There are many possible causes of abdominal pain. Common causes in adults include: Constipation, diarrhea, or gas Stomach acid flowing back up into the esophagus (acid reflux or heartburn) Severe acid reflux, called GERD (gastroesophageal reflux disease) A sore in the lining of the stomach or small intestine (peptic ulcer) Inflammation of the gallbladder, liver, or pancreas Gallstones or kidney stones Appendicitis Intestinal blockage An internal organ pushing through a muscle or other tissue (hernia) Urinary tract infections In women, menstrual cramps, fibroids, ovarian cysts, pelvic inflammatory disease, or endometriosis Inflammation or infection of the intestines, including Crohn's disease and ulcerative colitis Irritable bowel syndrome Diagnosing the cause of abdominal pain Your healthcare provider will give you a physical exam help find the cause of your pain. If needed,you will have tests. Belly pain has many possible causes. So it can be hard to find the reason for your pain. Giving details about your pain can help. Tell your provider where and when you feel the pain, and what makes it better or worse. Also let your provider know if you have other symptoms such as: Fever Tiredness Upset stomach (nausea) Vomiting Changes in bathroom habits Blood in the stool or black, tarry stool Weight loss that you can't explain (involuntary weight loss?) Also report any family history of stomach or intestinal problems, or cancers. Tell your provider about all your alcohol use and drug use. Tell your provider about all medicines you use, including herbs, vitamins, and supplements. Treating abdominal pain Some causes of pain need emergency medical treatment right away. These include appendicitis or a bowel blockage. Other problems can be treated with rest, fluids, or medicines. Your healthcare provider can give you specific instructions for treatment or self-care based on what is causing your pain. If you have vomiting or diarrhea, sip water or other clear fluids. When you are ready to eat solid foods again, start with small amounts of ihvt-ex-ryaoqx, low- fat foods. These include apple sauce, toast, or crackers. When to get medical care Call 911 or go to the hospital right away if you: Can t pass stool and are vomiting Are vomiting blood or have bloody diarrhea or black, tarry diarrhea Have chest, neck, or shoulder pain Feel like you might pass out Have pain in your shoulder blades with nausea Have sudden, severe belly pain Have new, severe pain unlike any you have felt before Have a belly that is rigid, hard, and hurts to touch Call your healthcare provider if you have: Pain for more than 5 days Bloating for more than 2 days Diarrhea for more than 5 days A fever of 100.4 F (38 C) or higher, or as directed by your healthcare provider Pain that gets worse Weight loss for no reason Continued lack of appetite Blood in your stool How to prevent abdominal pain Here are some tips to help prevent abdominal pain: Eat smaller amounts of food at each meal. Don't eat greasy, fried, or other high-fat foods. Don't eat foods that give you gas. Exercise regularly. Drink plenty of fluids. To help prevent GERD symptoms: Quit smoking. Reduce alcohol and foods that increase stomach acid. Don't use aspirin or uvmz-efq-acpilsj pain and fever medicines, if possible. This includes nonsteroidal anti-inflammatory drugs (NSAIDs). Lose excess weight. Finish eating at least 2 hours before you go to bed or lie down. Raise the head of your bed. 5528-1934 [employer]. [address] [place] [address]. All rights reserved. This information is not intended as a substitute for professional medical care. Always follow yourhealthcare professional's instructions. Follow Up Care 09/22/2023 20:59:08 With:NICOLETTE ESQUIVEL APRN-TRISTA Address: [address] [place] [phone] When:1-2 days [facility] 11-02-2023 Note Discharge Instructions Thank you for allowing [facility] to assist you with your healthcare needs. The following is importantdischarge information regarding your hospital visit. Diagnosis from Today's Visit Abdominal pain Abdominal pain What to Do Next Instructions from Your Care Team Discharge Return to Work, School, or Sports (Return to Work, School, or Sports) - Ordered -- 09/22/23, 09/24/23, May return to: work, 09/22/23 22:48:00 EDT Post Acute Orders No qualifying data available. You Need to Schedule the Following Appointments Follow Up with NICOLETTE ESQUIVEL APRN-TRISTA When Within 1-2 days Where: [address] [place] [phone] Allergies Contrast dye Medications Please ask your primary doctor or pharmacist before taking any other medication not listed, including over the counter drugs, herbal medications, vitamins and or supplements as they may interact withyour home medications. What How Much When Why Instructions Last Dose New acetaminophen-hydrocodone ([place] 325- 5 mg oral tablet) 1 tab(s) by mouth Every 6 hours Abdominal pain Duration: 2 Days Printed Prescription New ondansetron (ondansetron 4 mg oral tablet, disintegrating) 1 tab(s) by mouth Every 6 hours as needed for Nausea/Vomiting Printed Prescription Unchanged multivitamin, ( Multivitamins) 1 tab(s) by mouth Once a day Please take this list to your next doctor s visit. Bring all medications you take, including over the counter medications, herbals and other supplements with you to your doctor s visit. Patients and families are reminded to discard old lists and to update any records with all medication providers or retail pharmacies. Medication Leaflets ondansetron (oral) (carol troy) What is the most important information I should know about ondansetron? You should not use ondansetron if you are also using apomorphine (Apokyn). What is ondansetron? Ondansetron blocks the actions of chemicals in the body that can trigger nausea and vomiting. Ondansetron is used to prevent nausea and vomiting that may be caused by surgery, cancer chemotherapy, or radiation treatment. Ondansetron may be used for purposes not listed in this medication guide. What should I discuss with my health care provider before taking ondansetron? You should not use ondansetron if: you are also using apomorphine (Apokyn); or you are allergic to ondansetron or similar medicines (dolasetron, granisetron, palonosetron). To make sure ondansetron is safe for you, tell your doctor if you have: liver disease; an electrolyte imbalance (such as low levels of potassium or magnesium in your blood); congestive heart failure, slow heartbeats; a personal or family history of long QT syndrome; or a blockage in your digestive tract (stomach or intestines). Ondansetron is not expected to harm an unborn baby. Tell your doctor if you are . It is not known whether ondansetron passes into breast milk or if it could harm a nursing baby. Tell your doctor if you are breast-feeding a baby. Ondansetron is not approved for use by anyone younger than 4 years old. Ondansetron orally disintegrating tablets may contain phenylalanine. Tell your doctor if you have phenylketonuria (PKU). How should I take ondansetron? Follow all directions on your prescription label. Do not take this medicine in larger or smaller amounts or for longer than recommended. Ondansetron can be taken with or without food. The first dose of ondansetron is usually taken before the start of your surgery, chemotherapy, or radiation treatment. Follow your doctor's dosing instructions very carefully. Take the ondansetron regular tablet with a full glass of water. To take the orally disintegrating tablet (Zofran ODT): Keep the tablet in its blister pack until you are ready to take it. Open the package and peel back the foil. Do not push a tablet through the foil or you may damage the tablet. Use dry hands to remove the tablet and place it in your mouth. Do not swallow the tablet whole. Allow it to dissolve in your mouth without chewing. Swallow several times as the tablet dissolves. To use ondansetron oral soluble film (strip) (Zuplenz): Keep the strip in the foil pouch until you are ready to use the medicine. Using dry hands, remove the strip and place it on your tongue. It will begin to dissolve right away. Do not swallow the strip whole. Allow it to dissolve in your mouth without chewing. Swallow several times after the strip dissolves. If desired, you may drink liquid to help swallow the dissolved strip. Wash your hands after using Zuplenz. Measure liquid medicine with the dosing syringe provided, or with a special dose-measuring spoon ormedicine cup. If you do not have a dose-measuring device, ask your pharmacist for one. Store at room temperature away from moisture, heat, and light. Store liquid medicine in an upright position. What happens if I miss a dose? Take the missed dose as soon as you remember. Skip the missed dose if it is almost time for your next scheduled dose. Do not take extra medicine to make up the missed dose. What happens if I overdose? Seek emergency medical attention or call the Poison Help line at . Overdose symptoms may include sudden loss of vision, severe constipation, feeling light-headed, or fainting. What should I avoid while taking ondansetron? Ondansetron may impair your thinking or reactions. Be careful if you drive or do anything that requires you to be alert. What are the possible side effects of ondansetron? Get emergency medical help if you have signs of an allergic reaction: rash, hives; fever, chills, difficult breathing; swelling of your face, lips, tongue, or throat. Call your doctor at once if you have: severe constipation, stomach pain, or bloating; headache with chest pain and severe dizziness, fainting, fast or pounding heartbeats; fast or pounding heartbeats; jaundice (yellowing of the skin or eyes); blurred vision or temporary vision loss (lasting from only a few minutes to several hours); high levels of serotonin in the body--agitation, hallucinations, fever, fast heart rate, overactivereflexes, nausea, vomiting, diarrhea, loss of coordination, fainting. Common side effects may include: diarrhea or constipation; headache; drowsiness; or tired feeling. This is not a complete list of side effects and others may occur. Call your doctor for medical advice about side effects. You may report side effects to FDA at 6-269-BLD-4641. What other drugs will affect ondansetron? Ondansetron can cause a serious heart problem, especially if you use certain medicines at the same time, including antibiotics, antidepressants, heart rhythm medicine, antipsychotic medicines, and medicines to treat cancer, malaria, HIV or AIDS. Tell your doctor about all medicines you use, and those you start or stop using during your treatment with ondansetron. Taking ondansetron while you are using certain other medicines can cause high levels of serotonin to build up in your body, a condition called 'serotonin syndrome,' which can be fatal. Tell your doctor if you also use: medicine to treat depression; medicine to treat a psychiatric disorder; a narcotic (opioid) medication; or medicine to prevent nausea and vomiting. This list is not complete and many other drugs can interact with ondansetron. This includes prescription and jgro-pmr-ysywrqa medicines, vitamins, and herbal products. Give a list of all your medicines to any healthcare provider who treats you. Where can I get more information? Your pharmacist can provide more information about ondansetron. Remember, keep this and all other medicines out of the reach of children, never share your medicines with others, and use this medication only for the indication prescribed. Every effort has been made to ensure that the information provided by [employer]. [employer]') is accurate, up-to-date, and complete, but no guarantee is made to that effect. Drug information contained herein may be time sensitive. [employer] information has been compiled for use by healthcare practitioners and consumers in the [place] and therefore [employer] does not warrant that uses outside of the [place] are appropriate, unless specifically indicated otherwise. [employer] drug information does not endorse drugs, diagnose patients or recommend therapy. [employer] drug information isan informational resource designed to assist licensed healthcare practitioners in caring for their p atients and/or to serve consumers viewing this service as a supplement to, and not a substitute for, the expertise, skill, knowledge and judgment of healthcare practitioners. The absence of a warningfor a given drug or drug combination in no way should be construed to indicate that the drug or drug combination is safe, effective or appropriate for any given patient. [employer] does not assume any responsibility for any aspect of healthcare administered with the aid of information [employer] provides. The information contained herein is not intended to cover all possible uses, directions, precautions, warnings, drug interactions, allergic reactions, or adverse effects. If you have questions about the drugs you are taking, check with your doctor, nurse or pharmacist. Copyright 2487-6523 [employer]. Version: 16.01. Revision Date: 06/23/2023. acetaminophen and hydrocodone (a SEET a MIN oh fen and parth droe KOE done) Lortab Elixir, Verdrocet What is the most important information I should know about acetaminophen and hydrocodone? MISUSE OF OPIOID MEDICINE CAN CAUSE ADDICTION, OVERDOSE, OR . Keep the medication in a place where others cannot get to it. Taking opioid medicine during may cause life-threatening withdrawal symptoms in the . Fatal side effects can occur if you use opioid medicine with alcohol, or with other drugs that cause drowsiness or slow your breathing. Stop taking this medicine and call your doctor right away if you have skin redness or a rash that spreads and causes blistering and peeling. What is acetaminophen and hydrocodone? Acetaminophen and hydrocodone is a combination medicine used to relieve moderate to severe pain. Acetaminophen and hydrocodone contains an opioid medicine, and may be habit-forming. Acetaminophen and hydrocodone may also be used for purposes not listed in this medication guide. What should I discuss with my healthcare provider before taking acetaminophen and hydrocodone? You should not use this medicine if you are allergic to acetaminophen or hydrocodone, or if you have: severe asthma or breathing problems; or a blockage in your stomach or intestines. Tell your doctor if you have ever had: breathing problems, sleep apnea (breathing stops during sleep); liver disease; a drug or alcohol addiction; kidney disease; a head injury or seizures; urination problems; or problems with your thyroid, pancreas, or gallbladder. If you use opioid medicine while you are , your baby could become dependent on the drug. This can cause life-threatening withdrawal symptoms in the baby after it is born. Babies born dependent on opioids may need medical treatment for several weeks. Ask a doctor before using opioid medicine if you are . Tell your doctor if you notice severe drowsiness or slow breathing in the nursing baby. How should I take acetaminophen and hydrocodone? Follow all directions on your prescription label. Never take this medicine in larger amounts, or for longer than prescribed. An overdose can damage your liver or cause . Tell your doctor if you feel an increased urge to use more of this medicine. Never share this medicine with another person, especially someone with a history of drug abuse or addiction. MISUSE CAN CAUSE ADDICTION, OVERDOSE, OR . Keep the medicine in a place where others cannot get to it. Selling or giving away this medicine is against the law. Measure liquid medicine carefully. Use the dosing syringe provided, or use a medicine dose-measuring device (not a kitchen spoon). If you need surgery or medical tests, tell the doctor ahead of time that you are using this medicine. You should not stop using this medicine suddenly. Follow your doctor's instructions about tapering your dose. Store at room temperature away from moisture and heat. Keep track of your medicine. You should be aware if anyone is using it improperly or without a prescription. Do not keep leftover opioid medication. Just one dose can cause in someone using this medicine accidentally or improperly. Ask your pharmacist where to locate a drug take-back disposal program.If there is no take-back program, flush the unused medicine down the toilet. What happens if I miss a dose? Since this medicine is used for pain, you are not likely to miss a dose. Skip any missed dose if itis almost time for your next dose. Do not use two doses at one time. What happens if I overdose? Seek emergency medical attention or call the Poison Help line at . An overdose of this medicine can be fatal, especially in a child or other person using the medicine without a prescription. Overdose symptoms may include nausea, vomiting, sweating, severe drowsiness, pinpoint pupils, slow breathing, or no breathing. Your doctor may recommend you get naloxone (a medicine to reverse an opioid overdose) and keep it with you at all times. A person caring for you can give the naloxone if you stop breathing or don't wake up. Your caregiver must still get emergency medical help and may need to perform CPR (cardiopulmonary resuscitation) on you while waiting for help to arrive. Anyone can buy naloxone from a pharmacy or local health department. Make sure any person caring foryou knows where you keep naloxone and how to use it. What should I avoid while taking acetaminophen and hydrocodone? Avoid driving or operating machinery until you know how this medicine will affect you. Dizziness ordrowsiness can cause falls, accidents, or severe injuries. Do not drink alcohol. Dangerous side effects or could occur. Ask a doctor or pharmacist before using any other medicine that may contain acetaminophen (sometimes abbreviated as APAP). Taking certain medications together can lead to a fatal overdose. What are the possible side effects of acetaminophen and hydrocodone? Get emergency medical help if you have signs of an allergic reaction: hives; difficulty breathing; swelling of your face, lips, tongue, or throat. Opioid medicine can slow or stop your breathing, and may occur. A person caring for you should give naloxone and/or seek emergency medical attention if you have slow breathing with long pauses,blue colored lips, or if you are hard to wake up. In rare cases, acetaminophen may cause a severe skin reaction that can be fatal. This could occur even if you have taken acetaminophen in the past and had no reaction. Stop taking this medicine and call your doctor right away if you have skin redness or a rash that spreads and causes blistering andpeeling. Call your doctor at once if you have: noisy breathing, sighing, shallow breathing, breathing that stops; a light-headed feeling, like you might pass out; liver problems--nausea, upper stomach pain, tiredness, loss of appetite, dark urine, rikki-colored stools, jaundice (yellowing of the skin or eyes); low cortisol levels-- nausea, vomiting, loss of appetite, dizziness, worsening tiredness or weakness; o high levels of serotonin in the body--agitation, hallucinations, fever, sweating, shivering, fast heart rate, muscle stiffness, twitching, loss of coordination, nausea, vomiting, diarrhea. Serious breathing problems may be more likely in older adults and in those who are debilitated or have wasting syndrome or chronic breathing disorders. Common side effects include: dizziness, drowsiness, feeling tired; nausea, vomiting, stomach pain; constipation; or headache. This is not a complete list of side effects and others may occur. Call your doctor for medical advice about side effects. You may report side effects to FDA at 9-655-DAD-2480. What other drugs will affect acetaminophen and hydrocodone? You may have breathing problems or withdrawal symptoms if you start or stop taking certain other medicines. Tell your doctor if you also use an antibiotic, antifungal medication, heart or blood pressure medication, seizure medication, or medicine to treat HIV or hepatitis C. Opioid medication can interact with many other drugs and cause dangerous side effects or . Be sure your doctor knows if you also use: cold or allergy medicines, bronchodilator asthma/COPD medication, or a diuretic ('water pill'); medicines for motion sickness, irritable bowel syndrome, or overactive bladder; other opioids--opioid pain medicine or prescription cough medicine; a sedative like Valium--diazepam, alprazolam, lorazepam, Xanax, Klonopin, Versed, and others; drugs that make you sleepy or slow your breathing--a sleeping pill, muscle relaxer, medicine to treat mood disorders or mental illness; drugs that affect serotonin levels in your body--a stimulant, or medicine for depression, Parkinson's disease, migraine headaches, serious infections, or nausea and vomiting. This list is not complete. Other drugs may affect acetaminophen and hydrocodone, including prescription and ufbd-lgc-neerefm medicines, vitamins, and herbal products. Not all possible interactions are listed here. Where can I get more information? Your doctor or pharmacist can provide more information about acetaminophen and hydrocodone. Remember, keep this and all other medicines out of the reach of children, never share your medicines with others, and use this medication only for the indication prescribed. Every effort has been made to ensure that the information provided by [employer]. [employer]') is accurate, up-to-date, and complete, but no guarantee is made to that effect. Drug information contained herein may be time sensitive. [employer] information has been compiled for use by healthcare practitioners and consumers in the [place] and therefore [employer] does not warrant that uses outside of the [place] are appropriate, unless specifically indicated otherwise. [employer] drug information does not endorse drugs, diagnose patients or recommend therapy. [employer] drug information isan informational resource designed to assist licensed healthcare practitioners in caring for their p atients and/or to serve consumers viewing this service as a supplement to, and not a substitute for, the expertise, skill, knowledge and judgment of healthcare practitioners. The absence of a warningfor a given drug or drug combination in no way should be construed to indicate that the drug or drug combination is safe, effective or appropriate for any given patient. [employer] does not assume any responsibility for any aspect of healthcare administered with the aid of information [employer] provides. The information contained herein is not intended to cover all possible uses, directions, precautions, warnings, drug interactions, allergic reactions, or adverse effects. If you have questions about the drugs you are taking, check with your doctor, nurse or pharmacist. Copyright 0681-6636 [employer]. Version: 19.. Revision Date: 07/11/2023. Education Materials Abdominal Pain Abdominal pain is pain in the stomach or belly area. Everyone has this pain from time to time. In many cases it goes away on its own. But abdominal pain can sometimes be due to a serious problem, such as appendicitis. So it s important to know when to get help. Causes of abdominal pain There are many possible causes of abdominal pain. Common causes in adults include: Constipation, diarrhea, or gas Stomach acid flowing back up into the esophagus (acid reflux or heartburn) Severe acid reflux, called GERD (gastroesophageal reflux disease) A sore in the lining of the stomach or small intestine (peptic ulcer) Inflammation of the gallbladder, liver, or pancreas Gallstones or kidney stones Appendicitis Intestinal blockage An internal organ pushing through a muscle or other tissue (hernia) Urinary tract infections In women, menstrual cramps, fibroids, ovarian cysts, pelvic inflammatory disease, or endometriosis Inflammation or infection of the intestines, including Crohn's disease and ulcerative colitis Irritable bowel syndrome Diagnosing the cause of abdominal pain Your healthcare provider will give you a physical exam help find the cause of your pain. If needed,you will have tests. Belly pain has many possible causes. So it can be hard to find the reason for your pain. Giving details about your pain can help. Tell your provider where and when you feel the pain, and what makes it better or worse. Also let your provider know if you have other symptoms such as: Fever Tiredness Upset stomach (nausea) Vomiting Changes in bathroom habits Blood in the stool or black, tarry stool Weight loss that you can't explain (involuntary weight loss?) Also report any family history of stomach or intestinal problems, or cancers. Tell your provider about all your alcohol use and drug use. Tell your provider about all medicines you use, including herbs, vitamins, and supplements. Treating abdominal pain Some causes of pain need emergency medical treatment right away. These include appendicitis or a bowel blockage. Other problems can be treated with rest, fluids, or medicines. Your healthcare provider can give you specific instructions for treatment or self-care based on what is causing your pain. If you have vomiting or diarrhea, sip water or other clear fluids. When you are ready to eat solid foods again, start with small amounts of zuxa-ks-ssgigi, low- fat foods. These include apple sauce, toast, or crackers. When to get medical care Call 911 or go to the hospital right away if you: Can t pass stool and are vomiting Are vomiting blood or have bloody diarrhea or black, tarry diarrhea Have chest, neck, or shoulder pain Feel like you might pass out Have pain in your shoulder blades with nausea Have sudden, severe belly pain Have new, severe pain unlike any you have felt before Have a belly that is rigid, hard, and hurts to touch Call your healthcare provider if you have: Pain for more than 5 days Bloating for more than 2 days Diarrhea for more than 5 days A fever of 100.4 F (38 C) or higher, or as directed by your healthcare provider Pain that gets worse Weight loss for no reason Continued lack of appetite Blood in your stool How to prevent abdominal pain Here are some tips to help prevent abdominal pain: Eat smaller amounts of food at each meal. Don't eat greasy, fried, or other high-fat foods. Don't eat foods that give you gas. Exercise regularly. Drink plenty of fluids. To help prevent GERD symptoms: Quit smoking. Reduce alcohol and foods that increase stomach acid. Don't use aspirin or sskg-hsi-ygvudvy pain and fever medicines, if possible. This includes nonsteroidal anti-inflammatory drugs (NSAIDs). Lose excess weight. Finish eating at least 2 hours before you go to bed or lie down. Raise the head of your bed. 8964-7647 The [employer]. [address] [place] [address], [place] [address]. All rights reserved. This information is not intended as a substitute for professional medical care. Always follow yourhealthcare professional's instructions. Additional Information VACCINATE! IT SAVES LIVES! Members of the community who have not yet received the COVID-19 vaccine and would like to receive it can visit one of [facility] vaccine clinics. There are many vaccine clinic locations within the [facility]. For locations and available times, please visit [email or web address] It is important to note that some COVID mobile vaccine clinics are held outdoors and may be canceled in rainy or stormy conditions. To learn more about pediatric vaccinations (ages 5-11), we invite you to visit the [facility] webpage. [email or web address] learn more about the COVID-19 vaccine, we invite you to visit the CDC website for a list of frequently asked questions. https://www.cdc.gov/coronavirus/2019-ncov/vaccines/faq.html [facility] Patient Portal Access Instructions: Stay connected with your healthcare team and access your personal medical information anytime with the [facility] Patient Portal. If you would like a full copy of your medical records please contact the [facility] Medical Records Department Tuesday through Tuesday between 8a.m. and 4:30p.m. Please follow the directions below to access the portal: 1.Access the email account you provided upon registration to the hospital.2.Look for an invitation email from [facility].3.Open the email and access the invitation link: Accept Invitation to [facility].Fill in the required pearl to create your account. Sign into [email or web address] with your username and password that you created in the above steps to stay up to date. You can then view a summary of results, a summary of your visits, and the ability to download your summaries to your computer or send the information securely to a physician. Remember that your healthcare information is confidential, so carefully consider who you will allow to register on the [facility] Portal for access to your information. You can also access the [facility] Patient Portal on the Member Desk kimber. Simply click on Health Records under [employer] and then click on the [employer] logo. HOW TO SAFELY DISPOSE OF PRESCRIPTION MEDICATIONS Please use one of the following methods to safely dispose of your unused medications. 1.Use a drug disposal kit: the drug disposal pouch allows you to safely discard your old and unuseddrugs. Ask your nurse to give you one when you are discharged.2.Visit a local take-back location: Many local pharmacies and police departments have programs that collect old and unwanted prescriptiondrugs. Call your local pharmacy or go to http://[email or web address]/8T8Jq4o to find one close to you.3.Make use of household items: Use cat litter or old coffee grounds to dispose medications if other options arenot available. Mix your drugs with these household products, seal them in an airtight container andthrow it into the garbage. Call [facility]: [phone] to be sure your drugs can be disposed of in this way. Some medicines may require a different approach.4.Never flush your medications down the toilet. IF YOU HAVE BEEN PRESCRIBED AN OPIOIDS FOR PAIN If you have been prescribed an opioid (such as hydrocodone, oxycodone or morphine), it is critical to understand the possible side effects and risks of opioid pain medications. Even when taken as directed, opioids can have several side effects including: Tolerance, meaning you might need to take more of a medication for the same pain relief. Nausea, vomiting and/or constipation. Sleepiness, dizziness, dry mouth, confusion, depression or itching. Physical dependence, meaning you have withdrawal symptoms when a medication is stopped ? this can develop within a few days. KNOW YOUR RESPONSIBILITIES It is important to know exactly how much and how often to take the opioid pain medications you are prescribed. Never take opioids in higher amounts or more often than prescribed. Do not combine opioids with alcohol or other drugs that cause drowsiness, such as benzodiazepines, also known as benzos,including diazepam and alprazolam, muscle relaxants or sleep aids. Never sell or share prescriptionopioids. This is illegal. Store opioids in a secure place and out of reach of others (including children, family, friends and visitors). The last page(s) of this document has been signed and retained as a CHART COPY Signatures Patient Education Materials Abdominal Pain Medication Leaflets ondansetron (oral), acetaminophen and hydrocodone My discharge plan and instructions have been reviewed and explained to me and I,MASTERSELSA understand my current condition and have read and understand these discharge instructions. I have received a written copy of the plan/instructions. If I have questions, I am aware that I should contact my doctor. Patient/Clinic Nurse Signature: Date/Time: Relationship to Patient: Witness Name/Signature: Date/Time: [facility]11-02-2023 Note Discharge Instructions Thank you for allowing [facility] to assist you with your healthcare needs. The following is importantdischarge information regarding your hospital visit. Diagnosis from Today's Visit Abdominal pain Abdominal pain What to Do Next Instructions from Your Care Team Discharge Return to Work, School, or Sports (Return to Work, School, or Sports) - Ordered -- 09/22/23, 09/24/23, May return to: work, 09/22/23 22:48:00 EDT Post Acute Orders No qualifying data available. You Need to Schedule the Following Appointments Follow Up with NICOLETTE ESQUIVEL APRN-TRISTA When Within 1-2 days Where: [address] [facility] [place] [address]- [phone] Allergies Contrast dye Medications Please ask your primary doctor or pharmacist before taking any other medication not listed, including over the counter drugs, herbal medications, vitamins and or supplements as they may interact withyour home medications. What How Much When Why Instructions Last Dose New acetaminophen-hydrocodone ([place] 325- 5 mg oral tablet) 1 tab(s) by mouth Every 6 hours Abdominal pain Duration: 2 Days Printed Prescription New ondansetron (ondansetron 4 mg oral tablet, disintegrating) 1 tab(s) by mouth Every 6 hours as needed for Nausea/Vomiting Printed Prescription Unchanged multivitamin, ( Multivitamins) 1 tab(s) by mouth Once a day Please take this list to your next doctor s visit. Bring all medications you take, including over the counter medications, herbals and other supplements with you to your doctor s visit. Patients and families are reminded to discard old lists and to update any records with all medication providers or retail pharmacies. Medication Leaflets ondansetron (oral) (on ELISEO troy) What is the most important information I should know about ondansetron? You should not use ondansetron if you are also using apomorphine (Apokyn). What is ondansetron? Ondansetron blocks the actions of chemicals in the body that can trigger nausea and vomiting. Ondansetron is used to prevent nausea and vomiting that may be caused by surgery, cancer chemotherapy, or radiation treatment. Ondansetron may be used for purposes not listed in this medication guide. What should I discuss with my health care provider before taking ondansetron? You should not use ondansetron if: you are also using apomorphine (Apokyn); or you are allergic to ondansetron or similar medicines (dolasetron, granisetron, palonosetron). To make sure ondansetron is safe for you, tell your doctor if you have: liver disease; an electrolyte imbalance (such as low levels of potassium or magnesium in your blood); congestive heart failure, slow heartbeats; a personal or family history of long QT syndrome; or a blockage in your digestive tract (stomach or intestines). Ondansetron is not expected to harm an unborn baby. Tell your doctor if you are . It is not known whether ondansetron passes into breast milk or if it could harm a nursing baby. Tell your doctor if you are breast-feeding a baby. Ondansetron is not approved for use by anyone younger than 4 years old. Ondansetron orally disintegrating tablets may contain phenylalanine. Tell your doctor if you have phenylketonuria (PKU). How should I take ondansetron? Follow all directions on your prescription label. Do not take this medicine in larger or smaller amounts or for longer than recommended. Ondansetron can be taken with or without food. The first dose of ondansetron is usually taken before the start of your surgery, chemotherapy, or radiation treatment. Follow your doctor's dosing instructions very carefully. Take the ondansetron regular tablet with a full glass of water. To take the orally disintegrating tablet (Zofran ODT): Keep the tablet in its blister pack until you are ready to take it. Open the package and peel back the foil. Do not push a tablet through the foil or you may damage the tablet. Use dry hands to remove the tablet and place it in your mouth. Do not swallow the tablet whole. Allow it to dissolve in your mouth without chewing. Swallow several times as the tablet dissolves. To use ondansetron oral soluble film (strip) (Zuplenz): Keep the strip in the foil pouch until you are ready to use the medicine. Using dry hands, remove the strip and place it on your tongue. It will begin to dissolve right away. Do not swallow the strip whole. Allow it to dissolve in your mouth without chewing. Swallow several times after the strip dissolves. If desired, you may drink liquid to help swallow the dissolved strip. Wash your hands after using Zuplenz. Measure liquid medicine with the dosing syringe provided, or with a special dose-measuring spoon ormedicine cup. If you do not have a dose-measuring device, ask your pharmacist for one. Store at room temperature away from moisture, heat, and light. Store liquid medicine in an upright position. What happens if I miss a dose? Take the missed dose as soon as you remember. Skip the missed dose if it is almost time for your next scheduled dose. Do not take extra medicine to make up the missed dose. What happens if I overdose? Seek emergency medical attention or call the Poison Help line at . Overdose symptoms may include sudden loss of vision, severe constipation, feeling light-headed, or fainting. What should I avoid while taking ondansetron? Ondansetron may impair your thinking or reactions. Be careful if you drive or do anything that requires you to be alert. What are the possible side effects of ondansetron? Get emergency medical help if you have signs of an allergic reaction: rash, hives; fever, chills, difficult breathing; swelling of your face, lips, tongue, or throat. Call your doctor at once if you have: severe constipation, stomach pain, or bloating; headache with chest pain and severe dizziness, fainting, fast or pounding heartbeats; fast or pounding heartbeats; jaundice (yellowing of the skin or eyes); blurred vision or temporary vision loss (lasting from only a few minutes to several hours); high levels of serotonin in the body--agitation, hallucinations, fever, fast heart rate, overactivereflexes, nausea, vomiting, diarrhea, loss of coordination, fainting. Common side effects may include: diarrhea or constipation; headache; drowsiness; or tired feeling. This is not a complete list of side effects and others may occur. Call your doctor for medical advice about side effects. You may report side effects to FDA at 4-594-PUO-7340. What other drugs will affect ondansetron? Ondansetron can cause a serious heart problem, especially if you use certain medicines at the same time, including antibiotics, antidepressants, heart rhythm medicine, antipsychotic medicines, and medicines to treat cancer, malaria, HIV or AIDS. Tell your doctor about all medicines you use, and those you start or stop using during your treatment with ondansetron. Taking ondansetron while you are using certain other medicines can cause high levels of serotonin to build up in your body, a condition called 'serotonin syndrome,' which can be fatal. Tell your doctor if you also use: medicine to treat depression; medicine to treat a psychiatric disorder; a narcotic (opioid) medication; or medicine to prevent nausea and vomiting. This list is not complete and many other drugs can interact with ondansetron. This includes prescription and cnnv-ajj-xpneegz medicines, vitamins, and herbal products. Give a list of all your medicines to any healthcare provider who treats you. Where can I get more information? Your pharmacist can provide more information about ondansetron. Remember, keep this and all other medicines out of the reach of children, never share your medicines with others, and use this medication only for the indication prescribed. Every effort has been made to ensure that the information provided by [employer] is accurate, up-to-date, and complete, but no guarantee is made to that effect. Drug information contained herein may be time sensitive. [employer] information has been compiled for use by healthcare practitioners and consumers in the [place] and therefore [employer] does not warrant that uses outside of the [place] are appropriate, unless specifically indicated otherwise. [employer] drug information does not endorse drugs, diagnose patients or recommend therapy. [employer] drug information isan informational resource designed to assist licensed healthcare practitioners in caring for their p atients and/or to serve consumers viewing this service as a supplement to, and not a substitute for, the expertise, skill, knowledge and judgment of healthcare practitioners. The absence of a warningfor a given drug or drug combination in no way should be construed to indicate that the drug or drug combination is safe, effective or appropriate for any given patient. [employer] does not assume any responsibility for any aspect of healthcare administered with the aid of information [employer] provides. The information contained herein is not intended to cover all possible uses, directions, precautions, warnings, drug interactions, allergic reactions, or adverse effects. If you have questions about the drugs you are taking, check with your doctor, nurse or pharmacist. Copyright 4722-1439 [employer]. Version: 16.01. Revision Date: 06/23/2023. acetaminophen and hydrocodone (a SEET a MIN oh fen and parth SO done) Lortab Elixir, Verdrocet What is the most important information I should know about acetaminophen and hydrocodone? MISUSE OF OPIOID MEDICINE CAN CAUSE ADDICTION, OVERDOSE, OR . Keep the medication in a place where others cannot get to it. Taking opioid medicine during may cause life-threatening withdrawal symptoms in the . Fatal side effects can occur if you use opioid medicine with alcohol, or with other drugs that cause drowsiness or slow your breathing. Stop taking this medicine and call your doctor right away if you have skin redness or a rash that spreads and causes blistering and peeling. What is acetaminophen and hydrocodone? Acetaminophen and hydrocodone is a combination medicine used to relieve moderate to severe pain. Acetaminophen and hydrocodone contains an opioid medicine, and may be habit-forming. Acetaminophen and hydrocodone may also be used for purposes not listed in this medication guide. What should I discuss with my healthcare provider before taking acetaminophen and hydrocodone? You should not use this medicine if you are allergic to acetaminophen or hydrocodone, or if you have: severe asthma or breathing problems; or a blockage in your stomach or intestines. Tell your doctor if you have ever had: breathing problems, sleep apnea (breathing stops during sleep); liver disease; a drug or alcohol addiction; kidney disease; a head injury or seizures; urination problems; or problems with your thyroid, pancreas, or gallbladder. If you use opioid medicine while you are , your baby could become dependent on the drug. This can cause life-threatening withdrawal symptoms in the baby after it is born. Babies born dependent on opioids may need medical treatment for several weeks. Ask a doctor before using opioid medicine if you are . Tell your doctor if you notice severe drowsiness or slow breathing in the nursing baby. How should I take acetaminophen and hydrocodone? Follow all directions on your prescription label. Never take this medicine in larger amounts, or for longer than prescribed. An overdose can damage your liver or cause . Tell your doctor if you feel an increased urge to use more of this medicine. Never share this medicine with another person, especially someone with a history of drug abuse or addiction. MISUSE CAN CAUSE ADDICTION, OVERDOSE, OR . Keep the medicine in a place where others cannot get to it. Selling or giving away this medicine is against the law. Measure liquid medicine carefully. Use the dosing syringe provided, or use a medicine dose-measuring device (not a kitchen spoon). If you need surgery or medical tests, tell the doctor ahead of time that you are using this medicine. You should not stop using this medicine suddenly. Follow your doctor's instructions about tapering your dose. Store at room temperature away from moisture and heat. Keep track of your medicine. You should be aware if anyone is using it improperly or without a prescription. Do not keep leftover opioid medication. Just one dose can cause in someone using this medicine accidentally or improperly. Ask your pharmacist where to locate a drug take-back disposal program.If there is no take-back program, flush the unused medicine down the toilet. What happens if I miss a dose? Since this medicine is used for pain, you are not likely to miss a dose. Skip any missed dose if itis almost time for your next dose. Do not use two doses at one time. What happens if I overdose? Seek emergency medical attention or call the Poison Help line at . An overdose of this medicine can be fatal, especially in a child or other person using the medicine without a prescription. Overdose symptoms may include nausea, vomiting, sweating, severe drowsiness, pinpoint pupils, slow breathing, or no breathing. Your doctor may recommend you get naloxone (a medicine to reverse an opioid overdose) and keep it with you at all times. A person caring for you can give the naloxone if you stop breathing or don't wake up. Your caregiver must still get emergency medical help and may need to perform CPR (cardiopulmonary resuscitation) on you while waiting for help to arrive. Anyone can buy naloxone from a pharmacy or local health department. Make sure any person caring foryou knows where you keep naloxone and how to use it. What should I avoid while taking acetaminophen and hydrocodone? Avoid driving or operating machinery until you know how this medicine will affect you. Dizziness ordrowsiness can cause falls, accidents, or severe injuries. Do not drink alcohol. Dangerous side effects or could occur. Ask a doctor or pharmacist before using any other medicine that may contain acetaminophen (sometimes abbreviated as APAP). Taking certain medications together can lead to a fatal overdose. What are the possible side effects of acetaminophen and hydrocodone? Get emergency medical help if you have signs of an allergic reaction: hives; difficulty breathing; swelling of your face, lips, tongue, or throat. Opioid medicine can slow or stop your breathing, and may occur. A person caring for you should give naloxone and/or seek emergency medical attention if you have slow breathing with long pauses,blue colored lips, or if you are hard to wake up. In rare cases, acetaminophen may cause a severe skin reaction that can be fatal. This could occur even if you have taken acetaminophen in the past and had no reaction. Stop taking this medicine and call your doctor right away if you have skin redness or a rash that spreads and causes blistering andpeeling. Call your doctor at once if you have: noisy breathing, sighing, shallow breathing, breathing that stops; a light-headed feeling, like you might pass out; liver problems--nausea, upper stomach pain, tiredness, loss of appetite, dark urine, rikki-colored stools, jaundice (yellowing of the skin or eyes); low cortisol levels-- nausea, vomiting, loss of appetite, dizziness, worsening tiredness or weakness; o high levels of serotonin in the body--agitation, hallucinations, fever, sweating, shivering, fast heart rate, muscle stiffness, twitching, loss of coordination, nausea, vomiting, diarrhea. Serious breathing problems may be more likely in older adults and in those who are debilitated or have wasting syndrome or chronic breathing disorders. Common side effects include: dizziness, drowsiness, feeling tired; nausea, vomiting, stomach pain; constipation; or headache. This is not a complete list of side effects and others may occur. Call your doctor for medical advice about side effects. You may report side effects to FDA at 2-032-ESG-4314. What other drugs will affect acetaminophen and hydrocodone? You may have breathing problems or withdrawal symptoms if you start or stop taking certain other medicines. Tell your doctor if you also use an antibiotic, antifungal medication, heart or blood pressure medication, seizure medication, or medicine to treat HIV or hepatitis C. Opioid medication can interact with many other drugs and cause dangerous side effects or . Be sure your doctor knows if you also use: cold or allergy medicines, bronchodilator asthma/COPD medication, or a diuretic ('water pill'); medicines for motion sickness, irritable bowel syndrome, or overactive bladder; other opioids--opioid pain medicine or prescription cough medicine; a sedative like Valium--diazepam, alprazolam, lorazepam, Xanax, Klonopin, Versed, and others; drugs that make you sleepy or slow your breathing--a sleeping pill, muscle relaxer, medicine to treat mood disorders or mental illness; drugs that affect serotonin levels in your body--a stimulant, or medicine for depression, Parkinson's disease, migraine headaches, serious infections, or nausea and vomiting. This list is not complete. Other drugs may affect acetaminophen and hydrocodone, including prescription and tmzf-ktg-itfydqx medicines, vitamins, and herbal products. Not all possible interactions are listed here. Where can I get more information? Your doctor or pharmacist can provide more information about acetaminophen and hydrocodone. Remember, keep this and all other medicines out of the reach of children, never share your medicines with others, and use this medication only for the indication prescribed. Every effort has been made to ensure that the information provided by [employer]. ('[employer]') is accurate, up-to-date, and complete, but no guarantee is made to that effect. Drug information contained herein may be time sensitive. [employer] information has been compiled for use by healthcare practitioners and consumers in the [place] and therefore [employer] does not warrant that uses outside of the [place] are appropriate, unless specifically indicated otherwise. [employer] drug information does not endorse drugs, diagnose patients or recommend therapy. [employer] drug information isan informational resource designed to assist licensed healthcare practitioners in caring for their p atients and/or to serve consumers viewing this service as a supplement to, and not a substitute for, the expertise, skill, knowledge and judgment of healthcare practitioners. The absence of a warningfor a given drug or drug combination in no way should be construed to indicate that the drug or drug combination is safe, effective or appropriate for any given patient. [employer] does not assume any responsibility for any aspect of healthcare administered with the aid of information [employer] provides. The information contained herein is not intended to cover all possible uses, directions, precautions, warnings, drug interactions, allergic reactions, or adverse effects. If you have questions about the drugs you are taking, check with your doctor, nurse or pharmacist. Copyright 7680-0965 [employer]. Version: 19.01. Revision Date: 07/11/2023. Education Materials Abdominal Pain Abdominal pain is pain in the stomach or belly area. Everyone has this pain from time to time. In many cases it goes away on its own. But abdominal pain can sometimes be due to a serious problem, such as appendicitis. So it s important to know when to get help. Causes of abdominal pain There are many possible causes of abdominal pain. Common causes in adults include: Constipation, diarrhea, or gas Stomach acid flowing back up into the esophagus (acid reflux or heartburn) Severe acid reflux, called GERD (gastroesophageal reflux disease) A sore in the lining of the stomach or small intestine (peptic ulcer) Inflammation of the gallbladder, liver, or pancreas Gallstones or kidney stones Appendicitis Intestinal blockage An internal organ pushing through a muscle or other tissue (hernia) Urinary tract infections In women, menstrual cramps, fibroids, ovarian cysts, pelvic inflammatory disease, or endometriosis Inflammation or infection of the intestines, including Crohn's disease and ulcerative colitis Irritable bowel syndrome Diagnosing the cause of abdominal pain Your healthcare provider will give you a physical exam help find the cause of your pain. If needed,you will have tests. Belly pain has many possible causes. So it can be hard to find the reason for your pain. Giving details about your pain can help. Tell your provider where and when you feel the pain, and what makes it better or worse. Also let your provider know if you have other symptoms such as: Fever Tiredness Upset stomach (nausea) Vomiting Changes in bathroom habits Blood in the stool or black, tarry stool Weight loss that you can't explain (involuntary weight loss?) Also report any family history of stomach or intestinal problems, or cancers. Tell your provider about all your alcohol use and drug use. Tell your provider about all medicines you use, including herbs, vitamins, and supplements. Treating abdominal pain Some causes of pain need emergency medical treatment right away. These include appendicitis or a bowel blockage. Other problems can be treated with rest, fluids, or medicines. Your healthcare provider can give you specific instructions for treatment or self-care based on what is causing your pain. If you have vomiting or diarrhea, sip water or other clear fluids. When you are ready to eat solid foods again, start with small amounts of epfa-lt-dbxepu, low- fat foods. These include apple sauce, toast, or crackers. When to get medical care Call 911 or go to the hospital right away if you: Can t pass stool and are vomiting Are vomiting blood or have bloody diarrhea or black, tarry diarrhea Have chest, neck, or shoulder pain Feel like you might pass out Have pain in your shoulder blades with nausea Have sudden, severe belly pain Have new, severe pain unlike any you have felt before Have a belly that is rigid, hard, and hurts to touch Call your healthcare provider if you have: Pain for more than 5 days Bloating for more than 2 days Diarrhea for more than 5 days A fever of 100.4 F (38 C) or higher, or as directed by your healthcare provider Pain that gets worse Weight loss for no reason Continued lack of appetite Blood in your stool How to prevent abdominal pain Here are some tips to help prevent abdominal pain: Eat smaller amounts of food at each meal. Don't eat greasy, fried, or other high-fat foods. Don't eat foods that give you gas. Exercise regularly. Drink plenty of fluids. To help prevent GERD symptoms: Quit smoking. Reduce alcohol and foods that increase stomach acid. Don't use aspirin or vchh-pko-jzbjwav pain and fever medicines, if possible. This includes nonsteroidal anti-inflammatory drugs (NSAIDs). Lose excess weight. Finish eating at least 2 hours before you go to bed or lie down. Raise the head of your bed. 6109-2547 [employer]. [address] [place] [address]. All rights reserved. This information is not intended as a substitute for professional medical care. Always follow yourhealthcare professional's instructions. Additional Information VACCINATE! IT SAVES LIVES! Members of the community who have not yet received the COVID-19 vaccine and would like to receive it can visit one of [facility] vaccine clinics. There are many vaccine clinic locations within the [facility]. For locations and available times, please visit www.[email or web address].[place].gov/. It is important to note that some COVID mobile vaccine clinics are held outdoors and may be canceled in rainy or stormy conditions. To learn more about pediatric vaccinations (ages 5-11), we invite you to visit the [facility] webpage. [email or web address]/pages/[email or web address]-Anwrfvahinm-Bafujtamxp-Uyzfd-[email or web address] stions.htmlTo learn more about the COVID-19 vaccine, we invite you to visit the CDC website for a list of frequently asked questions. https://www.cdc.gov/coronavirus/2019-ncov/vaccines/faq.html [employer] Patient Portal Access Instructions: Stay connected with your healthcare team and access your personal medical information anytime with the [employer] Patient Portal. If you would like a full copy of your medical records please contact the [facility] Medical Records Department Tuesday through Tuesday between 8a.m. and 4:30p.m. Please follow the directions below to access the portal: 1.Access the email account you provided upon registration to the hospital.2.Look for an invitation email from [facility].3.Open the email and access the invitation link: Accept Invitation to [employer].Fill in the required pearl to create your account. Sign into [email or web address] with your username and password that you created in the above steps to stay up to date. You can then view a summary of results, a summary of your visits, and the ability to download your summaries to your computer or send the information securely to a physician. Remember that your healthcare information is confidential, so carefully consider who you will allow to register on the [employer] Patient Portal for access to your information. You can also access the [facility] Patient Portal on the Member [employer] kimber. Simply click on Health Records under [employer] and then click on the [employer] logo. HOW TO SAFELY DISPOSE OF PRESCRIPTION MEDICATIONS Please use one of the following methods to safely dispose of your unused medications. 1.Use a drug disposal kit: the drug disposal pouch allows you to safely discard your old and unuseddrugs. Ask your nurse to give you one when you are discharged.2.Visit a local take-back location: Many local pharmacies and police departments have programs that collect old and unwanted prescriptiondrugs. Call your local pharmacy or go to http://[employer]/1A9Cp2m to find one close to you.3.Make use of household items: Use cat litter or old coffee grounds to dispose medications if other options arenot available. Mix your drugs with these household products, seal them in an airtight container andthrow it into the garbage. Call [facility]: [phone] to be sure your drugs can be disposed of in this way. Some medicines may require a different approach.4.Never flush your medications down the toilet. IF YOU HAVE BEEN PRESCRIBED AN OPIOIDS FOR PAIN If you have been prescribed an opioid (such as hydrocodone, oxycodone or morphine), it is critical to understand the possible side effects and risks of opioid pain medications. Even when taken as directed, opioids can have several side effects including: Tolerance, meaning you might need to take more of a medication for the same pain relief. Nausea, vomiting and/or constipation. Sleepiness, dizziness, dry mouth, confusion, depression or itching. Physical dependence, meaning you have withdrawal symptoms when a medication is stopped ? this can develop within a few days. KNOW YOUR RESPONSIBILITIES It is important to know exactly how much and how often to take the opioid pain medications you are prescribed. Never take opioids in higher amounts or more often than prescribed. Do not combine opioids with alcohol or other drugs that cause drowsiness, such as benzodiazepines, also known as benzos,including diazepam and alprazolam, muscle relaxants or sleep aids. Never sell or share prescriptionopioids. This is illegal. Store opioids in a secure place and out of reach of others (including children, family, friends and visitors). The last page(s) of this document has been signed and retained as a CHART COPY Signatures Patient Education Materials Abdominal Pain Medication Leaflets ondansetron (oral), acetaminophen and hydrocodone My discharge plan and instructions have been reviewed and explained to me and I,MASTERS, ELSA Hunt understand my current condition and have read and understand these discharge instructions. I have received a written copy of the plan/instructions. If I have questions, I am aware that I should contact my doctor. Patient/Clinic Nurse Signature: Date/Time: Relationship to Patient: Witness Name/Signature: Date/Time: [facility]11-02-2023 Note ORIGINAL EXAMINATION: CT OF THE ABDOMEN AND PELVIS WITH CONTRAST 09/22/2023 10:06 pm TECHNIQUE: CT of the abdomen and pelvis was performed with the administration of intravenous contrast. Multiplanar reformatted images are provided for review. Automated exposure control, iterative reconstruction, and/or weight based adjustment of the mA/kV was utilized to reduce the radiation dose to as low as reasonably achievable. COMPARISON: None. HISTORY: ORDERING SYSTEM PROVIDED HISTORY: Reason for Exam: reports RLQ pain that radiates to the back with emesis. pain FINDINGS: No acute osseous abnormality. Included thoracic structures are unremarkable. Normal liver, gallbladder, spleen, pancreas, and adrenal glands. Symmetric nephrograms without evidence of hydronephrosis or nephrolithiasis. Nonaneurysmal abdominal aorta. No abdominal lymphadenopathy, free fluid, or intraperitoneal free air identified. No acute GI abnormality. Under distended urinary bladder limiting evaluation. Small amount of fluid within the endometrial canal likely physiologic. Small fat containing umbilical hernia. IMPRESSION: No acute findings to explain patient's symptoms. I have personally reviewed the images of this examination and agree with the resident's finding and interpretation. Interpreted by: Samm Dee MD Preliminary Report By: Ree Matos Electronically signed By Samm Dee MD Dictated Date: 09/22/2023 10:08:59 PM Prelim Date: 09/22/2023 10:13:02 PM Sign Date: 09/22/2023 10:16:08 PM Ordering Provider: [facility]10[facility]23-2023 Evaluation + Plan note Future Scheduled Tests Radiology* US Pelvis Non-OB W/Transvaginal 09/12/23 [facility] 10-22-2023 Hospital Discharge instructions Patient Education 09/11/2023 03:42:18 Painful Menstrual Periods (Dysmenorrhea) Painful Menstrual Periods (Dysmenorrhea) Dysmenorrhea is the term used to describe painful menstrual periods. The uterus is a muscle. Normally, chemicals called prostaglandins cause the uterus to contract during your period. The contractions push out the build-up of tissue that occurs each month inside the uterus. If the contraction is very strong, it can cause pain. The pain may feel like cramping in the lower abdomen, lower back, or thighs. In severe cases, you may have other symptoms as well. These can include nausea, vomiting, loose stools, sweating, or dizziness. There are 2 types of dysmenorrhea: Primary dysmenorrhea refers to common menstrual cramps. It may begin 1 or 2 years after you first get your period. It may get better or go away as you get older or when you have a baby. The cramps are most often felt just before, or on the first day of your period. They may last 1 to 3 days. Treatment is with medicines and comfort measures as described below (see the Home care section). Secondary dysmenorrhea may start later in life. It describes menstrual pain that occurs due to an underlying health problem. The pain may last longer than common menstrual cramps. It may also worsen over time. Some problems that can lead to secondary dysmenorrhea include: Pelvic inflammatory disease (PID). Infection that involves the female reproductive organs, such as the uterus and fallopian tubes Fibroids. Benign growths within the wall of the uterus (not cancer) Endometriosis. Tissue that normally only lines the uterus also grows outside of it (because the abnormal tissue also swells and bleeds each month, it can cause pain) Once the cause of secondary dysmenorrhea is found, it can be treated. Your healthcare provider willdiscuss options with you as needed. Your care may also include some of the treatments described below (see the Home care section). Home care Medicines Certain medicines can help relieve or prevent menstrual pain and cramping. These can include: Nonsteroidal anti-inflammatory drugs (NSAIDs), such as ibuprofen Prescription pain medicine, if needed Hormone therapy (this includes most methods of hormonal control such as pills, shots, or a hormone-releasing IUD) General care To help relieve pain and cramping, try these tips: Rest as needed. Apply a heating pad to the lower belly or back as directed. A warm bath or massage to these areas may also help. Exercise regularly. Many women find that being more active each week helps reduce pain and cramping. Ask your healthcare provider for advice about other treatments you can try to help control pain andcramping. Follow-up care Follow up with your healthcare provider, or as advised. When to seek medical advice Call your healthcare provider right away if any of these occur: Fever of 100.4 F (38 C) or higher, or as directed by your provider Pain or cramping worsens or doesn t improve with medicine Pain or cramping lasts longer than usual or occurs between periods Unusual vaginal discharge between periods Bleeding becomes heavy (soaking more than 1 pad or tampon every hour for 3 hours) Passage of pink or lorenzo tissue from the vagina [id number] [employer]. [address] [place] [address], [place] [address]. All rights reserved. This information is not intended as a substitute for professional medical care. Always follow yourhealthcare professional's instructions. Follow Up Care 09/11/2023 03:17:21 With:NICOLETTE ESQUIVEL Address: [address] [facility] [place] [address] [phone] Business (1) When:2-4 days Comments:Schedule appointment as soon as possibleReturn to ED if symptoms worsenIncrease fluids clear liquiddiet i.e. Pedialyte Gatorade till 12 noon if tolerating may increase as tolerated can use Anaprox and Tylenol for pain return for intractable vomiting or fever [facility] 10-22-2023 Note Discharge Instructions Thank you for allowing [facility] to assist you with your healthcare needs. The following is importantdischarge information regarding your hospital visit. Diagnosis from Today's Visit Acute pelvic pain Menorrhagia What to Do Next Instructions from Your Care Team No qualifying data available. Post Acute Orders No qualifying data available. You Need to Schedule the Following Appointments Follow Up with NICOLETTE ESQUIVEL When Within 2-4 days Why: Schedule appointment as soon as possible Return to ED if symptoms worsen Increase fluids clear liquid diet i.e. Pedialyte Gatorade till 12 noon if tolerating may increase as tolerated can use Anaprox and Tylenol for pain return for intractable vomiting or fever Where: [address] [facility] [place] [address] [phone] Business (1) Allergies NKA Medications Please ask your primary doctor or pharmacist before taking any other medication not listed, including over the counter drugs, herbal medications, vitamins and or supplements as they may interact withyour home medications. What How Much When Instructions Last Dose New naproxen (Anaprox-DS 550 mg oral tablet) 1 tab(s) by mouth Two (2) times a day Duration: 10 Days prn pain with food Printed Prescription Please take this list to your next doctor s visit. Bring all medications you take, including over the counter medications, herbals and other supplements with you to your doctor s visit. Patients and families are reminded to discard old lists and to update any records with all medication providers or retail pharmacies. Education Materials Painful Menstrual Periods (Dysmenorrhea) Dysmenorrhea is the term used to describe painful menstrual periods. The uterus is a muscle. Normally, chemicals called prostaglandins cause the uterus to contract during your period. The contractions push out the build-up of tissue that occurs each month inside the uterus. If the contraction is very strong, it can cause pain. The pain may feel like cramping in the lower abdomen, lower back, or thighs. In severe cases, you may have other symptoms as well. These can include nausea, vomiting, loose stools, sweating, or dizziness. There are 2 types of dysmenorrhea: Primary dysmenorrhea refers to common menstrual cramps. It may begin 1 or 2 years after you first get your period. It may get better or go away as you get older or when you have a baby. The cramps are most often felt just before, or on the first day of your period. They may last 1 to 3 days. Treatment is with medicines and comfort measures as described below (see the Home care section). Secondary dysmenorrhea may start later in life. It describes menstrual pain that occurs due to an underlying health problem. The pain may last longer than common menstrual cramps. It may also worsen over time. Some problems that can lead to secondary dysmenorrhea include: Pelvic inflammatory disease (PID). Infection that involves the female reproductive organs, such as the uterus and fallopian tubes Fibroids. Benign growths within the wall of the uterus (not cancer) Endometriosis. Tissue that normally only lines the uterus also grows outside of it (because the abnormal tissue also swells and bleeds each month, it can cause pain) Once the cause of secondary dysmenorrhea is found, it can be treated. Your healthcare provider willdiscuss options with you as needed. Your care may also include some of the treatments described below (see the Home care section). Home care Medicines Certain medicines can help relieve or prevent menstrual pain and cramping. These can include: Nonsteroidal anti-inflammatory drugs (NSAIDs), such as ibuprofen Prescription pain medicine, if needed Hormone therapy (this includes most methods of hormonal control such as pills, shots, or a hormone-releasing IUD) General care To help relieve pain and cramping, try these tips: Rest as needed. Apply a heating pad to the lower belly or back as directed. A warm bath or massage to these areas may also help. Exercise regularly. Many women find that being more active each week helps reduce pain and cramping. Ask your healthcare provider for advice about other treatments you can try to help control pain andcramping. Follow-up care Follow up with your healthcare provider, or as advised. When to seek medical advice Call your healthcare provider right away if any of these occur: Fever of 100.4 F (38 C) or higher, or as directed by your provider Pain or cramping worsens or doesn t improve with medicine Pain or cramping lasts longer than usual or occurs between periods Unusual vaginal discharge between periods Bleeding becomes heavy (soaking more than 1 pad or tampon every hour for 3 hours) Passage of pink or lorenzo tissue from the vagina 6165-7084 [employer]. [address] [place] [address]. All rights reserved. This information is not intended as a substitute for professional medical care. Always follow yourhealthcare professional's instructions. Additional Information VACCINATE! IT SAVES LIVES! Members of the community who have not yet received the COVID-19 vaccine and would like to receive it can visit one of [facility] vaccine clinics. There are many vaccine clinic locations within the [facility]. For locations and available times, please visit [email or web address] It is important to note that some COVID mobile vaccine clinics are held outdoors and may be canceled in rainy or stormy conditions. To learn more about pediatric vaccinations (ages 5-11), we invite you to visit the [facility] webpage. https://www.[facility].org/pages/0939-Ovstj-Hqlijvrztvv-Vfmlfjdcfc-Hmota-Fep stions.htmlTo learn more about the COVID-19 vaccine, we invite you to visit the CDC website for a list of frequently asked questions. https://www.cdc.gov/coronavirus/2019-ncov/vaccines/faq.html [facility] Patient Portal Access Instructions: Stay connected with your healthcare team and access your personal medical information anytime with the [employer] Patient Portal. If you would like a full copy of your medical records please contact the [facility] Medical Records Department Tuesday through Tuesday between 8a.m. and 4:30p.m. Please follow the directions below to access the portal: 1.Access the email account you provided upon registration to the hospital.2.Look for an invitation email from [facility].3.Open the email and access the invitation link: Accept Invitation to [facility]4.Fill in the required pearl to create your account. Sign into [email or web address] with your username and password that you created in the above steps to stay up to date. You can then view a summary of results, a summary of your visits, and the ability to download your summaries to your computer or send the information securely to a physician. Remember that your healthcare information is confidential, so carefully consider who you will allow to register on the [facility] Patient Portal for access to your information. You can also access the [facility] Patient Portal on the Member Desk kimber. Simply click on Health Records under [employer] and then click on the [employer] logo. HOW TO SAFELY DISPOSE OF PRESCRIPTION MEDICATIONS Please use one of the following methods to safely dispose of your unused medications. 1.Use a drug disposal kit: the drug disposal pouch allows you to safely discard your old and unuseddrugs. Ask your nurse to give you one when you are discharged.2.Visit a local take-back location: Many local pharmacies and police departments have programs that collect old and unwanted prescriptiondrugs. Call your local pharmacy or go to http://[email or web address]/[email or web address] to find one close to you.3.Make use of household items: Use cat litter or old coffee grounds to dispose medications if other options arenot available. Mix your drugs with these household products, seal them in an airtight container andthrow it into the garbage. Call [facility]: [phone] to be sure your drugs can be disposed of in this way. Some medicines may require a different approach.4.Never flush your medications down the toilet. IF YOU HAVE BEEN PRESCRIBED AN OPIOIDS FOR PAIN If you have been prescribed an opioid (such as hydrocodone, oxycodone or morphine), it is critical to understand the possible side effects and risks of opioid pain medications. Even when taken as directed, opioids can have several side effects including: Tolerance, meaning you might need to take more of a medication for the same pain relief. Nausea, vomiting and/or constipation. Sleepiness, dizziness, dry mouth, confusion, depression or itching. Physical dependence, meaning you have withdrawal symptoms when a medication is stopped ? this can develop within a few days. KNOW YOUR RESPONSIBILITIES It is important to know exactly how much and how often to take the opioid pain medications you are prescribed. Never take opioids in higher amounts or more often than prescribed. Do not combine opioids with alcohol or other drugs that cause drowsiness, such as benzodiazepines, also known as benzos,including diazepam and alprazolam, muscle relaxants or sleep aids. Never sell or share prescriptionopioids. This is illegal. Store opioids in a secure place and out of reach of others (including children, family, friends and visitors). The last page(s) of this document has been signed and retained as a CHART COPY Signatures Patient Education Materials Painful Menstrual Periods (Dysmenorrhea) Medication Leaflets My discharge plan and instructions have been reviewed and explained to me and I,MASTERS, ELSA Hunt understand my current condition and have read and understand these discharge instructions. I have received a written copy of the plan/instructions. If I have questions, I am aware that I should contact my doctor. Patient/Clinic Nurse Signature: Date/Time: Relationship to Patient: Witness Name/Signature: Date/Time: [facility]10-23-2022 Hospital Discharge instructions Patient Education 09/12/2022 00:34:43 Abdominal Pain Abdominal Pain Abdominal pain is pain in the stomach or belly area. Everyone has this pain from time to time. In many cases it goes away on its own. But abdominal pain can sometimes be due to a serious problem, such as appendicitis. So it s important to know when to get help. Causes of abdominal pain There are many possible causes of abdominal pain. Common causes in adults include: Constipation, diarrhea, or gas Stomach acid flowing back up into the esophagus (acid reflux or heartburn) Severe acid reflux, called GERD (gastroesophageal reflux disease) A sore in the lining of the stomach or small intestine (peptic ulcer) Inflammation of the gallbladder, liver, or pancreas Gallstones or kidney stones Appendicitis Intestinal blockage An internal organ pushing through a muscle or other tissue (hernia) Urinary tract infections In women, menstrual cramps, fibroids, ovarian cysts, pelvic inflammatory disease, or endometriosis Inflammation or infection of the intestines, including Crohn's disease and ulcerative colitis Irritable bowel syndrome Diagnosing the cause of abdominal pain Your healthcare provider will give you a physical exam help find the cause of your pain. If needed,you will have tests. Belly pain has many possible causes. So it can be hard to find the reason for your pain. Giving details about your pain can help. Tell your provider where and when you feel the pain, and what makes it better or worse. Also let your provider know if you have other symptoms such as: Fever Tiredness Upset stomach (nausea) Vomiting Changes in bathroom habits Blood in the stool or black, tarry stool Weight loss that you can't explain (involuntary weight loss?) Also report any family history of stomach or intestinal problems, or cancers. Tell your provider about all your alcohol use and drug use. Tell your provider about all medicines you use, including herbs, vitamins, and supplements. Treating abdominal pain Some causes of pain need emergency medical treatment right away. These include appendicitis or a bowel blockage. Other problems can be treated with rest, fluids, or medicines. Your healthcare provider can give you specific instructions for treatment or self-care based on what is causing your pain. If you have vomiting or diarrhea, sip water or other clear fluids. When you are ready to eat solid foods again, start with small amounts of clca-ms-ycyvvc, low- fat foods. These include apple sauce, toast, or crackers. When to get medical care Call 911 or go to the hospital right away if you: Can t pass stool and are vomiting Are vomiting blood or have bloody diarrhea or black, tarry diarrhea Have chest, neck, or shoulder pain Feel like you might pass out Have pain in your shoulder blades with nausea Have sudden, severe belly pain Have new, severe pain unlike any you have felt before Have a belly that is rigid, hard, and hurts to touch Call your healthcare provider if you have: Pain for more than 5 days Bloating for more than 2 days Diarrhea for more than 5 days A fever of 100.4 F (38 C) or higher, or as directed by your healthcare provider Pain that gets worse Weight loss for no reason Continued lack of appetite Blood in your stool How to prevent abdominal pain Here are some tips to help prevent abdominal pain: Eat smaller amounts of food at each meal. Don't eat greasy, fried, or other high-fat foods. Don't eat foods that give you gas. Exercise regularly. Drink plenty of fluids. To help prevent GERD symptoms: Quit smoking. Reduce alcohol and foods that increase stomach acid. Don't use aspirin or ghxz-lez-rdnolpf pain and fever medicines, if possible. This includes nonsteroidal anti-inflammatory drugs (NSAIDs). Lose excess weight. Finish eating at least 2 hours before you go to bed or lie down. Raise the head of your bed. 5827-0943 [employer]. [address] [place] [address]. All rights reserved. This information is not intended as a substitute for professional medical care. Always follow yourhealthcare professional's instructions. Follow Up Care 09/11/2022 23:14:31 With:NICOLETTE ESQUIVEL Address: [address] [place] [phone] When:2-4 days [facility] 10-23-2022 Note Discharge Instructions Thank you for allowing [facility] to assist you with your healthcare needs. The following is importantdischarge information regarding your hospital visit. Diagnosis from Today's Visit Abdominal pain What to Do Next Instructions from Your Care Team No qualifying data available. Post Acute Orders No qualifying data available. You Need to Schedule the Following Appointments Follow Up with NICOLETTE ESQUIVEL When Within 2-4 days Where: [address] [place] [phone] Allergies [facility] Medications Please ask your primary doctor or pharmacist before taking any other medication not listed, including over the counter drugs, herbal medications, vitamins and or supplements as they may interact withyour home medications. What How Much When Instructions Last Dose Unchanged atenolol (atenolol 25 mg oral tablet) 1 tab(s) by mouth Once a day Unchanged ciprofloxacin (Cipro 500 mg oral tablet) 1 tab(s) by mouth Every 12 hours Duration: 3 Days Unchanged ferrous sulfate (FeroSul 325 mg (65 mg elemental iron) oral tablet) 1 tab(s) by mouth Once a day Unchanged fluconazole (fluconazole 150 mg oral tablet) 1 tab(s) by mouth Once a day Duration: 1 Doses Unchanged melatonin (melatonin 1 mg oral tablet) 1 tab(s) by mouth Daily at bedtime as needed for as needed for insomnia Duration: 90 Days Please take this list to your next doctor s visit. Bring all medications you take, including over the counter medications, herbals and other supplements with you to your doctor s visit. Patients and families are reminded to discard old lists and to update any records with all medication providers or retail pharmacies. Education Materials Abdominal Pain Abdominal pain is pain in the stomach or belly area. Everyone has this pain from time to time. In many cases it goes away on its own. But abdominal pain can sometimes be due to a serious problem, such as appendicitis. So it s important to know when to get help. Causes of abdominal pain There are many possible causes of abdominal pain. Common causes in adults include: Constipation, diarrhea, or gas Stomach acid flowing back up into the esophagus (acid reflux or heartburn) Severe acid reflux, called GERD (gastroesophageal reflux disease) A sore in the lining of the stomach or small intestine (peptic ulcer) Inflammation of the gallbladder, liver, or pancreas Gallstones or kidney stones Appendicitis Intestinal blockage An internal organ pushing through a muscle or other tissue (hernia) Urinary tract infections In women, menstrual cramps, fibroids, ovarian cysts, pelvic inflammatory disease, or endometriosis Inflammation or infection of the intestines, including Crohn's disease and ulcerative colitis Irritable bowel syndrome Diagnosing the cause of abdominal pain Your healthcare provider will give you a physical exam help find the cause of your pain. If needed,you will have tests. Belly pain has many possible causes. So it can be hard to find the reason for your pain. Giving details about your pain can help. Tell your provider where and when you feel the pain, and what makes it better or worse. Also let your provider know if you have other symptoms such as: Fever Tiredness Upset stomach (nausea) Vomiting Changes in bathroom habits Blood in the stool or black, tarry stool Weight loss that you can't explain (involuntary weight loss?) Also report any family history of stomach or intestinal problems, or cancers. Tell your provider about all your alcohol use and drug use. Tell your provider about all medicines you use, including herbs, vitamins, and supplements. Treating abdominal pain Some causes of pain need emergency medical treatment right away. These include appendicitis or a bowel blockage. Other problems can be treated with rest, fluids, or medicines. Your healthcare provider can give you specific instructions for treatment or self-care based on what is causing your pain. If you have vomiting or diarrhea, sip water or other clear fluids. When you are ready to eat solid foods again, start with small amounts of vmbj-ic-sqisxr, low- fat foods. These include apple sauce, toast, or crackers. When to get medical care Call 911 or go to the hospital right away if you: Can t pass stool and are vomiting Are vomiting blood or have bloody diarrhea or black, tarry diarrhea Have chest, neck, or shoulder pain Feel like you might pass out Have pain in your shoulder blades with nausea Have sudden, severe belly pain Have new, severe pain unlike any you have felt before Have a belly that is rigid, hard, and hurts to touch Call your healthcare provider if you have: Pain for more than 5 days Bloating for more than 2 days Diarrhea for more than 5 days A fever of 100.4 F (38 C) or higher, or as directed by your healthcare provider Pain that gets worse Weight loss for no reason Continued lack of appetite Blood in your stool How to prevent abdominal pain Here are some tips to help prevent abdominal pain: Eat smaller amounts of food at each meal. Don't eat greasy, fried, or other high-fat foods. Don't eat foods that give you gas. Exercise regularly. Drink plenty of fluids. To help prevent GERD symptoms: Quit smoking. Reduce alcohol and foods that increase stomach acid. Don't use aspirin or khec-xbi-gvizpnj pain and fever medicines, if possible. This includes nonsteroidal anti-inflammatory drugs (NSAIDs). Lose excess weight. Finish eating at least 2 hours before you go to bed or lie down. Raise the head of your bed. 7187-2646 [employer]. [address] [place] [address], [place] [address]. All rights reserved. This information is not intended as a substitute for professional medical care. Always follow yourhealthcare professional's instructions. Additional Information VACCINATE! IT SAVES LIVES! Members of the community who have not yet received the COVID-19 vaccine and would like to receive it can visit one of [facility] vaccine clinics. There are many vaccine clinic locations within the [facility]. For locations and available times, please visit [email or web address]. It is important to note that some COVID mobile vaccine clinics are held outdoors and may be canceled in rainy orstormy conditions. To learn more about pediatric vaccinations (ages 5-11), we invite you to visit the [facility] webpage. https://www.[facility].org/pages/6493-Wzeib-Phsmivgabiv-Qlckbjwqsl-Szuxu-Cbi stions.htmlTo learn more about the COVID-19 vaccine, we invite you to visit the [employer] website for a list of frequently asked questions. [email or web address]-cxb-Otffouev/ldqge-Shsunel-Vqbpiuoscy _[email or web address]-Questions.pdf [employer] Patient Portal Access Instructions: Stay connected with your healthcare team and access your personal medical information anytime with the [employer] Patient Portal. If you would like a full copy of your medical records please contact the [facility] Medical Records Department Tuesday through Tuesday between 8a.m. and 4:30p.m. Please follow the directions below to access the portal: 1.Access the email account you provided upon registration to the hospital.2.Look for an invitation email from [facility].3.Open the email and access the invitation link: Accept Invitation to [employer]4.Fill in the required pearl to create your account. Sign into [email or web address] with your username and password that you created in the above steps to stay up to date. You can then view a summary of results, a summary of your visits, and the ability to download your summaries to your computer or send the information securely to a physician. Remember that your healthcare information is confidential, so carefully consider who you will allow to register on the [employer] Patient Portal for access to your information. You can also access the [employer] Patient Portal on the Member Desk kimber. Simply click on Health Records under [employer] and then click on the [employer] logo. HOW TO SAFELY DISPOSE OF PRESCRIPTION MEDICATIONS Please use one of the following methods to safely dispose of your unused medications. 1.Use a drug disposal kit: the drug disposal pouch allows you to safely discard your old and unuseddrugs. Ask your nurse to give you one when you are discharged.2.Visit a local take-back location: Many local pharmacies and police departments have programs that collect old and unwanted prescriptiondrugs. Call your local pharmacy or go to http://[email or web address]/8K5Ek2n to find one close to you.3.Make use of household items: Use cat litter or old coffee grounds to dispose medications if other options arenot available. Mix your drugs with these household products, seal them in an airtight container andthrow it into the garbage. Call [facility]: [phone] to be sure your drugs can be disposed of in this way. Some medicines may require a different approach.4.Never flush your medications down the toilet. IF YOU HAVE BEEN PRESCRIBED AN OPIOIDS FOR PAIN If you have been prescribed an opioid (such as hydrocodone, oxycodone or morphine), it is critical to understand the possible side effects and risks of opioid pain medications. Even when taken as directed, opioids can have several side effects including: Tolerance, meaning you might need to take more of a medication for the same pain relief. Nausea, vomiting and/or constipation. Sleepiness, dizziness, dry mouth, confusion, depression or itching. Physical dependence, meaning you have withdrawal symptoms when a medication is stopped ? this can develop within a few days. KNOW YOUR RESPONSIBILITIES It is important to know exactly how much and how often to take the opioid pain medications you are prescribed. Never take opioids in higher amounts or more often than prescribed. Do not combine opioids with alcohol or other drugs that cause drowsiness, such as benzodiazepines, also known as benzos,including diazepam and alprazolam, muscle relaxants or sleep aids. Never sell or share prescriptionopioids. This is illegal. Store opioids in a secure place and out of reach of others (including children, family, friends and visitors). The last page(s) of this document has been signed and retained as a CHART COPY Signatures Patient Education Materials Abdominal Pain Medication Leaflets My discharge plan and instructions have been reviewed and explained to me and I,SELSA understand my current condition and have read and understand these discharge instructions. I have received a written copy of the plan/instructions. If I have questions, I am aware that I should contact my doctor. Patient/Clinic Nurse Signature: Date/Time: Relationship to Patient: Witness Name/Signature: Date/Time: [facility]10-23-2022 Note ORIGINAL EXAMINATION: TWO XRAY VIEWS OF THE ABDOMEN AND SINGLE XRAY VIEW OF THE CHEST 09/12/2022 12:02 am COMPARISON: None. HISTORY: ORDERING SYSTEM PROVIDED HISTORY: Reason for Exam: pain FINDINGS: Chest x-ray demonstrates the heart size is normal. There is no mediastinal widening. There is no lung infiltrate or edema. No pneumothorax or pleural fluid is present. Supine and upright x-rays of the abdomen show a nonobstructive bowel gas pattern. No dilated loops of intestine are present. There is no free intraperitoneal air other abnormal gas collection. No pathologic calcifications are detected. There is no sign of organomegaly. The skeletal structures are unremarkable. IMPRESSION: No sign of acute chest or abdominal process. Interpreted by: Codey Kelly MD Preliminary Report By: Codey Kelly MD Electronically signed By Codey Kelly MD Dictated Date: 09/12/2022 12:04:14 AM Prelim Date: 09/12/2022 12:05:44 AM Sign Date: 09/12/2022 12:05:44 AM Ordering Provider: WILFRED BEST [facility]10-23-2022 Note ORIGINAL EXAMINATION: TWO XRAY VIEWS OF THE ABDOMEN AND SINGLE XRAY VIEW OF THE CHEST 09/12/2022 12:02 am COMPARISON: None. HISTORY: ORDERING SYSTEM PROVIDED HISTORY: Reason for Exam: pain FINDINGS: Chest x-ray demonstrates the heart size is normal. There is no mediastinal widening. There is no lung infiltrate or edema. No pneumothorax or pleural fluid is present. Supine and upright x-rays of the abdomen show a nonobstructive bowel gas pattern. No dilated loops of intestine are present. There is no free intraperitoneal air other abnormal gas collection. No pathologic calcifications are detected. There is no sign of organomegaly. The skeletal structures are unremarkable. IMPRESSION: No sign of acute chest or abdominal process. Interpreted by: Codey Kelly MD Preliminary Report By: Codey Kelly MD Electronically signed By Codey Kelly MD Dictated Date: 09/12/2022 12:04:14 AM Prelim Date: 09/12/2022 12:05:44 AM Sign Date: 09/12/2022 12:05:44 AM Ordering Provider: WILFRED [facility]10-17-2022 Hospital Discharge instructions Patient Education 09/06/2022 18:24:09 DIARRHEA, Viral (4y-Adult) Viral Diarrhea (Adult) Diarrhea is usually due to viral gastroenteritis, another name for the stomach flu. This virus affects the stomach and intestinal tract and usually lasts 2 to 7 days. The main danger from repeated diarrhea is dehydration -- the loss of excess water and minerals from the body. Antibiotics are not effective in this illness, but simple home treatment will be helpful. Home Care: If symptoms are severe, rest at home for the next 24 hours or until you are feeling better. You may use acetaminophen (Tylenol) or ibuprofen (Motrin, Advil) to control fever unless another medicine was prescribed. [ NOTE : If you have chronic liver or kidney disease or ever had a stomach ulcer or GI bleeding, talk with your doctor before using these medicines.] (Aspirin should never be used in anyone under 18 years of age who is ill with a fever. It may cause severe liver damage.) Avoid tobacco, caffeine and alcohol, which may worsen your symptoms. If anti-diarrhea medicine was prescribed, take this only as directed. Sometimes anti-diarrhea medicine can make your condition worse if the cause is an infectious diarrhea. Therefore, anti-diarrhea medicine should not be taken for this condition unless advised by your doctor. During The First 12-24 Hours follow the diet below: BEVERAGES: Sport drinks like Gatorade, soft drinks without caffeine; alexandr julian, mineral water (plain or flavored), decaffeinated tea and coffee. SOUPS: Clear broth, consomm and bouillon DESSERTS: Plain gelatin (Jell-O), popsicles and fruit juice bars. During The Next 24 Hours you may add the following to the above: Hot cereal, plain toast, bread, rolls, crackers Plain noodles, rice, mashed potatoes, chicken noodle or rice soup Unsweetened canned fruit (avoid pineapple), bananas Limit fat intake to less than 15 grams per day by avoiding margarine, butter, oils, mayonnaise, sauces, gravies, fried foods, peanut butter, meat, poultry and fish. Limit fiber; avoid raw or cooked vegetables, fresh fruits (except bananas) and bran cereals. Limit caffeine and chocolate. No spices or seasonings except salt. During The Next 24 Hours Gradually resume a normal diet, as you feel better and your symptoms lessen. Follow Up with your doctor as advised. Call if not improving within 24 hours or if diarrhea lasts more than one week. If a stool (diarrhea) sample was taken, you may call in 2 days (or as directed) for the results. Get Prompt Medical Attention if any of the following occur: Increasing abdominal pain or constant lower right abdominal pain Continued vomiting (unable to keep liquids down) Frequent diarrhea (more than 5 times a day) Blood in vomit or stool (black or red color) Reduced oral intake Dark urine, reduced urine output Weakness, dizziness, fainting Drowsiness, confusion, stiff neck or seizure Fever of 100.4 F (38 C) oral or higher, not better with fever medication [place] heather 1311-9400 [employer]. [address] [place] [address]. All rights reserved. This information is not intended as a substitute for professional medical care. Always follow yourhealthcare professional's instructions. Follow Up Care 09/06/2022 16:54:09 With:NICOLETTE ESQUIVEL APRN-SURVEY RESEARCH ANALYST Address: [address] [facility] [place] [phone] When:2-4 days [facility] 10-17-2022 Note Discharge Instructions Thank you for allowing [facility] to assist you with your healthcare needs. The following is importantdischarge information regarding your hospital visit. Diagnosis from Today's Visit Diarrhea Diarrhea What to Do Next Instructions from Your Care Team No qualifying data available. Post Acute Orders No qualifying data available. You Need to Schedule the Following Appointments Follow Up with NICOLETTE ESQUIVEL When Within 2-4 days Where: [address] [facility] [place] [phone] Allergies NKA Medications Please ask your primary doctor or pharmacist before taking any other medication not listed, including over the counter drugs, herbal medications, vitamins and or supplements as they may interact withyour home medications. What How Much When Instructions Last Dose Unchanged ethinyl estradiol- norgestimate (Sprintec 0.25 mg-35 mcg oral tablet) 1 tab(s) by mouth Once a day Unchanged ferrous sulfate (FeroSul 325 mg (65 mg elemental iron) oral tablet) 1 tab(s) by mouth Once a day Unchanged fluconazole (fluconazole 150 mg oral tablet) 1 tab(s) by mouth Once a day Duration: 1 Doses Unchanged melatonin (melatonin 1 mg oral tablet) 1 tab(s) by mouth Daily at bedtime as needed for as needed for insomnia Duration: 90 Days Unchanged metoprolol (Metoprolol Succinate ER 25 mg oral TABLET extended release) 1 tab(s) by mouth Once a day Please take this list to your next doctor s visit. Bring all medications you take, including over the counter medications, herbals and other supplements with you to your doctor s visit. Patients and families are reminded to discard old lists and to update any records with all medication providers or retail pharmacies. Education Materials Viral Diarrhea (Adult) Diarrhea is usually due to viral gastroenteritis, another name for the stomach flu. This virus affects the stomach and intestinal tract and usually lasts 2 to 7 days. The main danger from repeated diarrhea is dehydration -- the loss of excess water and minerals from the body. Antibiotics are not effective in this illness, but simple home treatment will be helpful. Home Care: If symptoms are severe, rest at home for the next 24 hours or until you are feeling better. You may use acetaminophen (Tylenol) or ibuprofen (Motrin, Advil) to control fever unless another medicine was prescribed. [ NOTE : If you have chronic liver or kidney disease or ever had a stomach ulcer or GI bleeding, talk with your doctor before using these medicines.] (Aspirin should never be used in anyone under 18 years of age who is ill with a fever. It may cause severe liver damage.) Avoid tobacco, caffeine and alcohol, which may worsen your symptoms. If anti-diarrhea medicine was prescribed, take this only as directed. Sometimes anti-diarrhea medicine can make your condition worse if the cause is an infectious diarrhea. Therefore, anti-diarrhea medicine should not be taken for this condition unless advised by your doctor. During The First 12-24 Hours follow the diet below: BEVERAGES: Sport drinks like Gatorade, soft drinks without caffeine; alexandr julian, mineral water (plain or flavored), decaffeinated tea and coffee. SOUPS: Clear broth, consomm and bouillon DESSERTS: Plain gelatin (Jell-O), popsicles and fruit juice bars. During The Next 24 Hours you may add the following to the above: Hot cereal, plain toast, bread, rolls, crackers Plain noodles, rice, mashed potatoes, chicken noodle or rice soup Unsweetened canned fruit (avoid pineapple), bananas Limit fat intake to less than 15 grams per day by avoiding margarine, butter, oils, mayonnaise, sauces, gravies, fried foods, peanut butter, meat, poultry and fish. Limit fiber; avoid raw or cooked vegetables, fresh fruits (except bananas) and bran cereals. Limit caffeine and chocolate. No spices or seasonings except salt. During The Next 24 Hours Gradually resume a normal diet, as you feel better and your symptoms lessen. Follow Up with your doctor as advised. Call if not improving within 24 hours or if diarrhea lasts more than one week. If a stool (diarrhea) sample was taken, you may call in 2 days (or as directed) for the results. Get Prompt Medical Attention if any of the following occur: Increasing abdominal pain or constant lower right abdominal pain Continued vomiting (unable to keep liquids down) Frequent diarrhea (more than 5 times a day) Blood in vomit or stool (black or red color) Reduced oral intake Dark urine, reduced urine output Weakness, dizziness, fainting Drowsiness, confusion, stiff neck or seizure Fever of 100.4 F (38 C) oral or higher, not better with fever medication [place] [id number] [employer]. [address] [place] [address], [place] [address]. All rights reserved. This information is not intended as a substitute for professional medical care. Always follow yourhealthcare professional's instructions. Additional Information VACCINATE! IT SAVES LIVES! Members of the community who have not yet received the COVID-19 vaccine and would like to receive it can visit one of [facility] vaccine clinics. There are many vaccine clinic locations within the [facility]. For locations and available times, please visit [email or web address]. It is important to note that some COVID mobile vaccine clinics are held outdoors and may be canceled in rainy orstormy conditions. To learn more about pediatric vaccinations (ages 5-11), we invite you to visit the [facility] webpage. [email or web address] learn more about the COVID-19 vaccine, we invite you to visit the [facility] website for a list of frequently asked questions. [email or web address] [employer] Patient Portal Access Instructions: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 criminally investigate or prosecute any alcohol or drug abuse patient.[facility] HospitalIn the event this information is protected by the Federal Confidentiality of Alcohol and Drug Abuse Patient Records regulations: The Federal rules restrict any use of the information to criminally investigate or prosecute any alcohol or drug abuse patient.[facility] Hospital[facility] the event this information is protected by the Federal Confidentiality of Alcohol and Drug Abuse Patient Records regulations: The Federal rules restrict any use of the information to criminally investigate or prosecute any alcohol or drug abuse patient.[facility] Reason for Visit (unrecogniz ed section and content) Reason Comments Abdominal Pain Reason Comments Radiology US Specialty Diagnoses / Procedures Referred By Contac t Referred To Contact US IMAGING Diagnoses Bloating Procedures US ABD RIGHT UPPER QUADRANT US ABDOMINAL REAL TIME W/IMAGE LIMITED Zoltan Betancourt MD [address] [place] [address] Us Imaging [place] [address] Referral ID Status Reason Start Date Expiration Date V isits Requested Visits Authorized [id number] Closed Auto-Generate d Referral 11/05/2024 12/05/2025 1 1 Reason Comments Patient Education Assessment Specialty Diagnoses / Procedures Referred By Contac t Referred To Contact Nutrition Diagnoses Bloating Procedures CONSULT TO NUTRITION THERAPY MEDICAL NUTRITION ASSMT&IVNTJ INDIV EACH 15 IN Zoltan Betancourt MD [address] [employer] [address] Referral ID Status Reason Start Date Expiration Date Visits Requested Visits Authorized [id number] Authorized PCP Requested Referral 4 11/05/2025 1 4 Reason Comments Menstrual Problem Irregular periods Reason Comments Follow Up From lab work and pe lvic US Reason Comments Referral Request Reason Comments New Patient Headaches Reason Comments Trauma L foot outside of pi nky toe x this am, possible metal, states stepped on same in home painful, dark area noted FOR RECORDS PERTAINING TO PATIENTS WHO ARE OR HAVE BEEN ENROLLED IN A CHEMICAL DEPENDENCY/SUBSTANCEABUSE PROGRAM, SOME INFORMATION MAY BE OMITTED. This clinical summary was aggregated from multiple sources. Caution should be exercised in using it in the provision of clinical care. This summary normalizes information from multiple sources, and as a consequence, information in this document may materially change the coding, format and clinical context of patient data. In addition, data may be omitted in some cases. CLINICAL DECISIONS SHOULD BE BASED ON THE PRIMARY CLINICAL RECORDS. [employer] provides no warranty or guarantee of the accuracy or completeness of information in this document.
[2025-10-11] MEDS: DiphenhydrAMINE 50 MG/ML Syringe IV (11:39)
[2025-10-11 12:05] VITALS: BP 114/62; PULSE 91; RESP 16
== END 2025-10-11 23:59 | disposition home or self-care (01) ==
LOC: MEDOUTP 10:07
PROVIDERS: PCP Nurse Practitioner Primary Care; Referring Provider Advanced Practice Midwife; Visit Provider Advanced Practice Midwife
DX: E86.0 Dehydration (principal)
CPT/HCPCS: 96374; 96375; A4216; J2405

== ENCOUNTER 2025-10-18 06:44 | Emergency (ER) | payer OTHER, SELFPAY ==
[2025-10-18 06:45] VITALS: BP 129/76; PULSE 98; RESP 18; TEMP 36.4; O2SAT 100; BMI 35.0
--- NOTE | 2025-10-18 07:00 | EDS_ITS ---
HPI History of Present Illness Chief Complaint: Nausea/Vomiting Informant: patient and spouse/S.O. Narrative Narrative: Patient is a 20-year-old female who is a G1, P0 with history of anxiety POTS and migraine. She states she struggled with recurrent nausea and vomiting throughout this . She states yesterday she had a difficult day and cannot keep any food or fluid down. She denies any fevers or chills. She denies any known sick contact. She states there is no vaginal bleeding or abdominal discomfort. She denies any loose stool or diarrhea. She states she has a prescription for Reglan waiting for her at the pharmacy but she has not picked it up or tried the medication yet. However as she is unable to keep anything down throughout the day she is concerned she may be dehydrated and presents for evaluation [facility] Medical History Postural orthostatic tachycardia syndrome [POTS] Seasonal allergies Home Medications Medication Instructions Recorded Last Taken Type multivitamin no.47-iron fum 27 2 cap PO DAILY 09/03/25 Unknown History mg-folate no.1 1 mg-dha 300 mg capsule (PNV-DHA) metoclopramide HCl 5 mg tablet 5 mg PO QACHS PRN nause a and 10/11/25 Unknown Rx (Reglan) vomiting #30 tabs Allergy/AdvReac Type Severity Reaction Status Date / Time ondansetron (From Zofran) Allergy Severe Hives Verified 10/18/25 06:48 nonoxynol 9 (From [place] [facility] Allergy Intermediate Swelling Verified 10/18/25 06:48 Spermicidal Jelly) Iodinated Contrast Media AdvReac Severe Anaphylaxis Verified 10/18/25 06:48 (CONTRASTS) Family History Mother Thyroid disorder Tumor removed Maternal Grandmother Endometriosis Sister Endometriosis Surgical History [place] teeth extracted H/O endoscopy Hx of colonoscopy Social History adopted: No household members: spouse housing: house current occupational status: employed current occupation: [employer] at [employer] pets and animals: Yes (Avoid litterbox) pets and animals: cat(s), dog(s) and horse(s) history of recent travel: No sexually active: Yes Smoking Status: Never smoker alcohol intake: current alcohol intake frequency: holidays/special occasions o nly details: Not while substance use type: does not use well-balanced diet: about half the time caffeine: No eating out: 1-3 times/week during the past year weight has: other details: PCOS dx- gained 45# in 9 months what type of physical activity do you participate in: walking frequency: daily duration: 30-45 minutes/day verito/synagogue: Worship seatbelt use: always do you feel safe at home: Yes additional social history: Melvin LOWE ROS ED Constitutional Constitutional ED: Denies chills or fever(s) ENT ENT ED: Reports sore throat and other Details: Patient reports throat pain only after multiple episodes of vomiting Cardiovascular Cardiovascular: Reports chest pain and other Details: Patient reports chest pain after vomiting but states it has since resolved Respiratory/Chest Respiratory/Chest: Denies cough or dyspnea Gastrointestinal Gastrointestinal: Reports nausea and vomiting; Denies abdominal pain or diarrhea Genitourinary Genitourinary ED: Reports other Details: Negative vaginal bleeding ; Denies dysuria Musculoskeletal Musculoskeletal: Denies myalgias Integumentary Denies rash Neurologic Neurologic: Denies headache(s) Psychiatric Psychiatric: Reports anxiety Hematologic/Lymphatic Hematologic/Lymphatic: Denies easy bleeding or easy bruising EXAM Physical Exam Const Vital Signs: 10/18/25 06:45 Temperature 97.6 F L Temperature Source Axillary Pulse Rate 98 Respiratory Rate 18 Blood Pressure 129/76 H Blood Pressure Mean 93 Pulse Ox 100 Positive well nourished and well developed General Appearance ED: well developed; Negative for pallor HEENT Reports dry mucous membranes HEENT Narrative: Normocephalic atraumatic No tongue or lip swelling no oral lesions no airway edema or compromise No secondary findings to suggest infection in the posterior pharynx Mucous membranes are mildly dry and tacky Mouth ED: Yes dry mucous membranes Mouth: dry mucous membranes Eyes PERRL and EOMs intact bilaterally General Eye ED: Negative for scleral icterus Neck supple Neck Narrative: No nuchal rigidity or meningeal signs No subcutaneous emphysema noted Chest Wall palpation of chest normal Resp normal respiratory effort and clear to auscultation bilaterally Cardio regular rate and regular rhythm Rate: other Other Details: Heart is regular rate and rhythm without murmurs rubs or gallops Radial and carotid pulses are equal and symmetric GI normal to inspection, nondistended, normoactive bowel sounds, non-tender and non-distended GI Narrative: Soft nontender nondistended with normal active bowel sounds No voluntary guarding or rigidity or pulsatile mass Auscultation: normoactive bowel sounds Palpation: soft Extremity normal to inspection Extremity Narrative: No asymmetric edema no pitting edema negative Homans' sign bilaterally Neuro oriented x3, CN's II-XII intact bilaterally and no sensory deficits noted Sensorium / Orientation: alert Motor Exam: strength 5/5 throughout Psych Mood & Affect: anxious Skin no rashes or lesions noted and skin turgor normal Skin Narrative: Skin turgor is normal General Skin Exam: Negative for jaundice or pallor MDM MDM MDM Narrative Medical decision making narrative: Patient arrived to the ER with stable vitals. She reported bouts of recurrent nausea and vomiting associated with her . She states that she is already required infusion in the past few weeks secondary to intractable nausea and vomiting. She denies fevers or chills or diarrhea going against a viral infection such as norovirus or rotavirus. Her abdomen is soft without distention or peritoneal signs and I have low concern for ileus or obstruction or acute appendicitis. In order to assess for acute kidney injury based on her reported vomiting as well as electrolyte abnormality or potential urinary tract infection basic blood work was obtained. As patient's physical exam does suggest mild dehydration 2 L of IV fluid were ordered. 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 At this time her history and exam would suggest hyperemesis gravidarum. She denies any marijuana use going against cannabis hyperemesis syndrome. Vitals are stable and do not suggest preeclampsia. Therefore I feel as long as her labs revealed no clinically significant findings that after IV medication and IV hydration she will be safe for discharge. As the patient's labs and response to treatment are still pending she will be signed out to the day physician Dr. Yanez. A bedside ultrasound was performed and documented a single intrauterine with proper activity and normal heart rate of 145 bpm. History & Record Review Discussion w/independent historian: Patient and Significant other Lab Data Attestation: I reviewed the patient's lab results. Labs: Laboratory Results - last 24 hr 10/18/25 06:50 WBC 9.0 RBC 4.43 Hgb 12.3 Hct 35.1 L MCV 79.2 L MCH 27.8 MCHC 35.0 RDW Std Deviation 37.4 RDW Coeff of Angela 13.2 Plt Count 336 MPV 10.6 Immature Gran % (Auto) 0.400 Neut % (Auto) 73.5 H Lymph % (Auto) 18.5 L Smyth % (Auto) 6.5 Eos % (Auto) 0.7 Baso % (Auto) 0.4 Absolute Neuts (auto) 6.6 Absolute Lymphs (auto) 1.67 Nucleated RBC % 0 Discharge Plan Triage Chief Complaint: Nausea/Vomiting ED Provider: Dusty Silverman Dx/Rx/DC Orders Clinical Impression: Hyperemesis gravidarum, Mild dehydration, POTS (postural orthostatic tachycardia syndrome), Anxiety Instructions: ED Dehydration (Adult), ED Hyperemesis Gravidarum Prescriptions: No Action PNV-DHA 27 mg iron-1 mg -300 mg capsule 2 cap PO DAILY metoclopramide HCl [Reglan] 5 mg tablet 5 mg PO QACHS PRN (Reason: nausea and vomiting) Qty: 30 3RF Primary Care Provider: Care Physician,No Primary Referrals: Nicolette Esquivel FARM REPORTER, FARM REPORTER-C [Non-Staff, Family Practice] Activity Restrictions/Additional Instructions: Please take the Reglan that was prescribed for you in order to help control any further bouts of nausea or vomiting. Keep yourself well-hydrated and return to the ER should you have any further concerns. Print Language: French Disposition Disposition: Home, Self Care
[2025-10-18] MEDS: DiphenhydrAMINE 50 MG/ML Syringe 25 MG IV (07:09)
[2025-10-18] MEDS: 0.9% Normal Saline (1000mL) 1,000 ML 999 ML IV ×2 (07:09→08:03)
[2025-10-18 07:13] LABS: Hematocrit 35.1 % (37-47); Hemoglobin 12.3 g/dL (12.0-15.0); Immature Granulocytes Count 0.040 X10^3/uL (0.0-0.0); Mean Corp Hgb Conc 35.0 g/dL (32-36); Mean Corpuscular Volume 79.2 fL (81-99); Mean Platelet Vol. 10.6 fl (6.2-12.0); NRBC Flagged by Analyzer 0 % (0-5); Platelet Count 336 K/mm3 (150-450); RBC Distribution Width CV 13.2 % (11.6-14.6); RBC Distribution Width SD 37.4 fl (35.1-43.9); Red Blood Count 4.43 M/mm3 (4.2-5.4); White Blood Count 9.0 K/mm3 (4.4-11.0)
[2025-10-18 07:14] LABS: Mucous, Urine 0 SEEN /hpf (<or=2+); Red Blood Cells-Urine 0 SEEN /hpf (0-5)
[2025-10-18 07:17] LABS: Color, Urine Yellow (Yellow); Glucose, Dipstick Normal (Normal); Leukocyte Esterase-Dipstick 100 /ul (Negative); Nitrite-Dipstick Negative (Negative); Occult Blood-Urine 10 /ul (Negative); Protein-Dipstick 30 mg/dl (Negative); Specific Gravity, Urine 1.020 (1.002-1.030); Urine Bilirubin Dipstick Negative (Negative)
--- OUTSIDE RECORDS SUMMARY | 2025-10-18 07:17 | XMS RPT_ITS | CCD ---
Author Organization [facility] Care Team Providers Care Facilities Planner Name Role Phone KERI, JIL Unavailable Unavailable [...] NICOLETTE Sol Primary Care Physicia n Alvin FERRY PILOT, FERRY PILOT-C Nicolette Primary Care Provider Dr. Raman Roque Attending Provider ALVIN MACE-TRISTA, NICOLETTE Sol Attending Unava ilable ALVIN WICKN-CRYSTALIZER, NICOLETTE Sol Primary Care Unava ilable ALVIN MACE-CRYSTALIZER, NICOLETTE Sol Attending Unava ilable ALVIN PHOTOGRAPHIC TECHNICIAN-CRYSTALIZER, NICOLETTE S Primary Care Unava ilable ALVIN PHOTOGRAPHIC TECHNICIAN-CRYSTALIZER, NICOLETTE S Attending Unava ilable ALVIN PHOTOGRAPHIC TECHNICIAN-CRYSTALIZER, NICOLETTE S Primary Care Unava ilable DAY VILLASEÑOR, DR BAR Attending Unavailabl e ALVIN PHOTOGRAPHIC TECHNICIAN-CRYSTALIZER, NICOLETTE S Primary Care Unava ilable MAST PHOTOGRAPHIC TECHNICIAN-CRYSTALIZER, SUMA Attending Unavailabl e ALVIN PHOTOGRAPHIC TECHNICIAN-CRYSTALIZER, NICOLETTE S Primary Care Unava ilable DAY VILLASEÑOR, DR BAR Attending Unavailabl e ALVIN PHOTOGRAPHIC TECHNICIAN-CRYSTALIZER, NICOLETTE S Primary Care Unava ilable SUGEY VILLASEÑOR, NORTH Fong Attending Unavail able ALVIN PHOTOGRAPHIC TECHNICIAN-CRYSTALIZER, NICOLETTE S Primary Care Unava ilable MURILLO PHOTOGRAPHIC TECHNICIAN-CRYSTALIZER, PROSPER Johnson Attending Unavai lable ALVIN PHOTOGRAPHIC TECHNICIAN-CRYSTALIZER, NICOLETTE S Primary Care Unava ilable NINA VILLASEÑOR, DR ELIO Chen Attending Unavai lable ALVIN PHOTOGRAPHIC TECHNICIAN-CRYSTALIZER, NICOLETTE S Primary Care Unava ilable LESTER WHITLOCK, DR SADAF Heaton Attending Unavailable ALVIN PHOTOGRAPHIC TECHNICIAN-CRYSTALIZER, NICOLETTE S Primary Care Unava ilable ANALILIA VILLASEÑOR, DAIN Whitten Attending Unavailable ALVIN PHOTOGRAPHIC TECHNICIAN-CRYSTALIZER, NICOLETTE S Primary Care Unava ilable SUGEY VILLASEÑOR, NORTH Fong Attending Unavail able ALVIN PHOTOGRAPHIC TECHNICIAN-CRYSTALIZER, NICOLETTE S Primary Care Unava ilable YE ANDERSON MD Attending Unavailable ALVIN PHOTOGRAPHIC TECHNICIAN-CRYSTALIZER, NICOLETTE S Primary Care Unava ilable MURILLO PHOTOGRAPHIC TECHNICIAN-CRYSTALIZER, PROSPER Johnson Attending Unavai lable ALVIN PHOTOGRAPHIC TECHNICIAN-CRYSTALIZER, NICOLETTE S Primary Care Unava ilable Unavailable Primary Care Provider Unavaildavid Jamseon RD, Rhianna Chen Unavailable SAUL WICKN - TRISTA, DANIELA Glover Primary Care Phys [facility] Daniela Fenton CNP Primary Care Provider ALVIN PHOTOGRAPHIC TECHNICIAN-CRYSTALIZER, NICOLETTE S Primary Care Unava ilable NINA VILLASEÑOR, DR ELIO Chen Attending Unavai lable ALVIN PHOTOGRAPHIC TECHNICIAN-CRYSTALIZER, NICOLETTE S Primary Care Unava ilable DAY VILLASEÑOR, DR BAR Attending Unavailabl e SAUL PHOTOGRAPHIC TECHNICIAN - CRYSTALIZER, DANIELA Glover Primary Care U navailable SAUL PHOTOGRAPHIC TECHNICIAN - CRYSTALIZER, DANIELA Glover Attending U navailable SAUL PHOTOGRAPHIC TECHNICIAN - CRYSTALIZER, DANIELA Glover Primary Care U navailable RIDER DO, DR SADAF Heaton Attending Unavailable ALVIN PHOTOGRAPHIC TECHNICIAN-CRYSTALIZER, NICOLETTE S Primary Care Unava ilable GAIL [...] Primary Care Unavailable JASEN GABRIEL Attending Unavailable SAULDANIELA ZAIDI Primary Care Unavailable SELF Referring Unavailable MCKENZIE CONSTANTINO Attending Unavailable Alvin FERRY PILOT-C, Nicolette Primary Care Physician [phone] Alvin FERRY PILOT-C, Nicolette Referring Provider [phone] Chito VILLASEÑOR, Dr. Conner Attending Physician Dalila Dale Attending Unavailable [place] FERRY PILOT, Nicolette Primary Care Unavailable Alvin FERRY PILOT, Nicolette Referring Unavailable [place] FERRY PILOT, Nicolette Primary Care Unavailable Alvin BANKS, Nicolette Referring Unavailable Geeta Leo Attending Unavailable Alvin BANKS, Nicolette Primary Care Unavailable Geeta Leo Attending Unavailable Allergies Allergy Classification Reported Allergen(s) Allergy Type Date of Onset Reaction(s) Facility (14 sources) Contrast dye 1; Translations: [iodinated radiocontrast agents] Drug allergy [facility] Comment on above: throat swelling (2 sources) Iodinated Contrast Media; Translations: [IODINATED CONTRAST MEDIA] Drug Allergy 5 Anaphylaxis [facility] (1 source) Nonoxynol-9 Drug Allergy 5 Swelling [facility] Comment on above: vaginal irritation (1 source) Triiodobenzoic Acids Propensity to adverse reactions 5 Anaphylaxis [facility] (1 source) Iodinated Contrast Media Drug allergy (disorder) 5 [facility] (1 source) nonoxynol 9 Drug allergy (disorder) 5 [facility] Medications Current Medications Medication Drug Class(es) [...] # 20 tab(s), 0 Refill(s), ., Pharmacy: [facility], Migraines Frequent headaches, 159, [...] 1 tablet by mouth every six hours Milton 325- 5 mg oral tablet Dose = 1 tab(s), Oral, q6h, # 5 tab(s), 0 Refill(s), Abdominal pain, 66.7 Start Date: 09/22/23 Stop Date: 09/24/23 Status: Ordered atenolol 25 mg oral tablet (3 sources) beta-Adrenergic Karina Start: 09-09-2022 atenolol 25 mg oral tablet Dose : 25 mg = 1 tab(s), Oral, qDay, # 30 tab(s), 3 Refill(s), Pharmacy: [facility], 155, cm, 09/06/22 16:57:00 [...] BID, # 60 tab(s), 0 Refill(s), Pharmacy: [facility], Epigastric pain Nausea & [...] day, # 90 tab(s), 3 Refill(s), Pharmacy: [facility], 155, cm, 01/05/22 14:30:00 [...] tab(s), 3 Refill(s), 12/31/22 14:51:00 EST, Pharmacy: [facility], 155, cm, 01/05/22 14:30:00 [...] Refill(s) Start Date: 09/06/22 Status: Ordered Multivit 12-Jjri-Mmnura 1-Dha (Pnv-Dha) 27 mg iron-1 mg -300 mg capsule (1 source) Start: 09-03-2025 Multivit 17-Jgrz-Oeacab 1-Dha (Pnv-Dha) 27 mg iron-1 mg -300 [...] qDay, # 30 cap(s), 0 Refill(s), Pharmacy: [facility], GERD (gastroesophageal reflux disease), [...] Nausea/Vomiting, # 20 tab(s), 0 Refill(s), Pharmacy: [facility], Nausea & vomiting, 157, [...] qDay, # 90 tab(s), 3 Refill(s), Pharmacy: [facility], 155, cm, 01/05/22 14:30:00 [...] tab(s)/24hrs, # 9 tab(s), 0 Refill(s), Pharmacy: [facility], 157, cm, 03/15/24 7:00:00 [...] AJAY aptimaon CHLAMY,NUC ACID Negative Normal Negative [facility] Comment on above: Performed By: #### L 509.4006, L3890.6102, L3890.6301, L509.8002, BTS, L3890.6006, L501.9985, L100.0100 #### [facility] [address] [place], [place], [id number] GC BY NUC ACID Negative Normal Negative [facility] Comment on above: Result Comment: Perf ormed at: =G - [facility] [address] [id number] Resource Conservation Specialist: Anika Martinez MD, Phone: [phone] Performed By: #### L 509.4006, L3890.6102, L3890.6301, L509.8002, BTS, L3890.6006, L501.9985, L100.0100 #### [facility] [address] [place], [address] Genital Culture Comprehensiv kwan 09-22-2025 VAC Reason for Exam: Vag inal Discharge Normal vaginal carlos isolated. No yeast, Gardnerella, Neisseria or beta-hemolytic Streptococcus isolated. Normal [facility] Comment on above: Performed By: #### L 509.4006, L3890.6102, L3890.6301, L509.8002, BTS, L3890.6006, L501.9985, L100.0100 #### [facility] [address] [place], [place], [id number] Urine Cultureon 10-31-2025 URC Culture exhibits no growth. Normal [facility] Comment on above: Performed By: #### L 509.4006, L3890.6102, L3890.6301, L509.8002, BTS, L3890.6006, L501.9985, L100.0100 #### [facility] [address] [place], [address] CBC W/Diff, Automatedon 10-3 0-202 Absolute Lymph 1.84 X10 3/uL Normal 0.83-4.51 [facility] Comment on above: Performed By: #### L 509.4006, L3890.6102, L3890.6301, L509.8002, BTS, L3890.6006, L501.9985, L100.0100 #### [facility] [address] [place], [address] Absolute Neut 10.9 X10 3/uL High 2.0-7.7 [facility] Comment on above: Performed By: #### L 509.4006, L3890.6102, L3890.6301, L509.8002, BTS, L3890.6006, L501.9985, L100.0100 #### [facility] [address] [place], [address] Basophils/100 WBC (Bld) 0.4 % Normal 0-1 [facility] Comment on above: Performed By: #### L 509.4006, L3890.6102, L3890.6301, L509.8002, BTS, L3890.6006, L501.9985, L100.0100 #### [facility] [address] [place], [address] Eosinophils/100 WBC (Bld) 0.4 % Normal 0-5 [facility] Comment on above: Performed By: #### L 509.4006, L3890.6102, L3890.6301, L509.8002, BTS, L3890.6006, L501.9985, L100.0100 #### [facility] [address] [place], [address] Erythrocyte distribution width (RBC) [Ratio] 12.9 % Normal 11.6-14.6 [facility] Comment on above: Performed By: #### L 509.4006, L3890.6102, L3890.6301, L509.8002, BTS, L3890.6006, L501.9985, L100.0100 #### [facility] [address] [place], [address] Hematocrit (Bld) [Volume fraction] 34.9 % Low 37-47 [facility] Comment on above: Performed By: #### L 509.4006, L3890.6102, L3890.6301, L509.8002, BTS, L3890.6006, L501.9985, L100.0100 #### [facility] [address] [place], [address] Hemoglobin (Bld) [Mass/Vol] 12.1 g/dL Normal 12.0-15.0 [facility] Comment on above: Performed By: #### L 509.4006, L3890.6102, L3890.6301, L509.8002, BTS, L3890.6006, L501.9985, L100.0100 #### [facility] [address] [place], [address] IG% 0.700 Normal 0.0-0.9 [facility] Comment on above: Result Comment: IG% - Immature Granulocytes (promyelocytes, myelocytes and metamyelocytes) > 1% indicates that a LEFT SHIFT is Present. Performed By: #### L 509.4006, L3890.6102, L3890.6301, L509.8002, BTS, L3890.6006, L501.9985, L100.0100 #### [facility] [address] [place], [address] Lymphocytes/100 WBC (Bld) 13.6 % Low 19-41 [facility] Comment on above: Performed By: #### L 509.4006, L3890.6102, L3890.6301, L509.8002, BTS, L3890.6006, L501.9985, L100.0100 #### [facility] [address] [place], [address] MCH (RBC) [Entitic mass] 27.2 pg Normal 27.0-32.0 [facility] Comment on above: Performed By: #### L 509.4006, L3890.6102, L3890.6301, L509.8002, BTS, L3890.6006, L501.9985, L100.0100 #### [facility] [address] [place], [address] MCHC (RBC) [Mass/Vol] 34.7 g/dL Normal 32-36 [facility] Comment on above: Performed By: #### L 509.4006, L3890.6102, L3890.6301, L509.8002, BTS, L3890.6006, L501.9985, L100.0100 #### [facility] [address] [place], [address] MCV (RBC) [Entitic vol] 78.4 fL Low 81-99 [facility] Comment on above: Performed By: #### L 509.4006, L3890.6102, L3890.6301, L509.8002, BTS, L3890.6006, L501.9985, L100.0100 #### [facility] [address] [place], [address] Monocytes/100 WBC (Bld) 4.7 % Normal 0-10 [facility] Comment on above: Performed By: #### L 509.4006, L3890.6102, L3890.6301, L509.8002, BTS, L3890.6006, L501.9985, L100.0100 #### [facility] [address] [place], [address] Neutrophils/100 WBC (Bld) 80.2 % High 47-70 [facility] Comment on above: Performed By: #### L 509.4006, L3890.6102, L3890.6301, L509.8002, BTS, L3890.6006, L501.9985, L100.0100 #### [facility] [address] [place], [address] Nucleated RBC (Bld) [#/Vol] 0 10*3/uL Normal 0-5 [facility] Comment on above: Performed By: #### L 509.4006, L3890.6102, L3890.6301, L509.8002, BTS, L3890.6006, L501.9985, L100.0100 #### [facility] [address] [place], [address] Platelet mean volume (Bld) [Entitic vol] 10.6 fL Normal 6.2-12.0 [facility] Comment on above: Performed By: #### L 509.4006, L3890.6102, L3890.6301, L509.8002, BTS, L3890.6006, L501.9985, L100.0100 #### [facility] [address] [place], [address] Platelets (Bld) [#/Vol] 341 10*3/uL Normal 150-450 [facility] Comment on above: Performed By: #### L 509.4006, L3890.6102, L3890.6301, L509.8002, BTS, L3890.6006, L501.9985, L100.0100 #### [facility] [address] [place], [address] RBC (Bld) [#/Vol] 4.45 10*6/uL Normal 4.2-5.4 [facility] Comment on above: Performed By: #### L 509.4006, L3890.6102, L3890.6301, L509.8002, BTS, L3890.6006, L501.9985, L100.0100 #### [facility] [address] [place], [address] RDW SD 36.4 fl Normal 35.1-43.9 [facility] Comment on above: Performed By: #### L 509.4006, L3890.6102, L3890.6301, L509.8002, BTS, L3890.6006, L501.9985, L100.0100 #### [facility] [address] [place], [address] WBC (Bld) [#/Vol] 13.5 10*3/uL High 4.4-11.0 [facility] Comment on above: Performed By: #### L 509.4006, L3890.6102, L3890.6301, L509.8002, BTS, L3890.6006, L501.9985, L100.0100 #### [facility] [address] [place], [address] Gram Stainon 09-19-2025 Reason for Exam: Vag inal Discharge Gram Stain 1+ Gram positive rods 2+ Gram negative rods Rare Gram positive cocci No Gram negative diplococci Score = 5 Interpretation: 0-3 Normal, 4-6 Intermediate, 7-10 Positive BV Normal [facility] Comment on above: Performed By: #### L 509.4006, L3890.6102, L3890.6301, L509.8002, BTS, L3890.6006, L501.9985, L100.0100 #### [facility] [address] [place], [address] HIVon 09-19-2025 HIV Non-Reactive Normal Nonreactive [facility] Comment on above: Result Comment: Non- Reactive Reactive Repeatedly reactive samples must be confirmed according to CDC recommended confirmatory algorithms. The subresults for either HIVAG or AHIV can be used as an aid in the selection of the confirmation algorithm for reactive samples. Send out specimens with Reactive results to [facility] for confirmation. Order the HIV antibody detection and differentiation: lc#[id number] Performed By: #### L 509.4006, L3890.6102, L3890.6301, L509.8002, BTS, L3890.6006, L501.9985, L100.0100 #### [facility] [address] [place], [address] Hemoglobin A1con 09-19-2025 HbA1c (Bld) [Mass fraction] 5.3 % Normal <=5.6 [facility] Comment on above: Result Comment: Norm al < 5.7 % Prediabetic 5.7 - 6.4 % Diabetic >or= 6.5 % Please note range changes. Performed By: #### L 509.4006, L3890.6102, L3890.6301, L509.8002, BTS, L3890.6006, L501.9985, L100.0100 #### [facility] [address] [place], [address] Hepatitis C Antibodyon 09-19 Hepatitis C Ab Non-Reactive Normal Nonreactive [facility] Comment on above: Result Comment: Reac tive: Presumptive evidence of antibodies to HCV. Follow CDC recommendations for supplemental testing. Non-Reactive: Antibodies to HCV were not detected; does not exclude the possibility of exposure to HCV Reactive Results are presumptive evidence of antibodies to HCV. Follow CDC recommendations for supplemental testing. Order confirmation testing: HCV Quant by PCR testing - HCVPCR lc#[id number] Non Reactive: < 0.8 Equivocal: >/= 0.8 to < 1.0 Reactive: >/= 1.0 The CDC requires that a reactive/equivocal HCV antibody result be sent out for confirmation. HCV Quant by PCR testing. Performed By: #### L 509.4006, L3890.6102, L3890.6301, L509.8002, BTS, L3890.6006, L501.9985, L100.0100 #### [facility] [address] [place], [place], [address] L3890.6102on 09-19-2025 HEP B Surf Ag Non-Reactive Normal Nonreactive [facility] Comment on above: Result Comment: Reac tive: Presumptive evidence of HBV. Repeatedly reactive samples must be confirmed using a neutralization test ([employer] HBsAg Confirmatory Test) Non-Reactive: HBsAg not detected; does not exclude the possibility of exposure to HBV Performed By: #### L 509.4006, L3890.6102, L3890.6301, L509.8002, BTS, L3890.6006, L501.9985, L100.0100 #### [facility] [address] [place], [address] L509.4006on 09-19-2025 Rubella IgG REAC Normal Nonreactive [facility] Comment on above: Result Comment: Anti body Result: Interpretation Non-Reactive: Non-Immune Reactive: Immune The following results were obtained with the [employer] Rubella IgG assay. Results from assays of other manufacturers cannot be used interchangeably. Performed By: #### L 509.4006, L3890.6102, L3890.6301, L509.8002, BTS, L3890.6006, L501.9985, L100.0100 #### [facility] [address] [place], [place], [address] Criminalist Technician Office Visit Reporton 09-19-2025 Criminalist Technician Office Visit Report [facility], [address] [place] [address] OFFICE VISIT Date of Service: 09/19/25 MR#: [id number] Acct: [id number] Name: ELSA LOUIE Rep #: [id number] : 2005 Provider: PANCHO Nelson ams Age/Sex: 20/F Location: [facility] Status: Signed Intake Vital Signs 12/25/18 01:12 09/03/25 09:24 09/19/25 12:57 Height 5 ft 2 in 5 ft 1 in 5 ft 1 in Weight: 191 lb 5 oz BMI 36.1 BP 117/75 Intake Visit Reasons: NOB LMP 07/25 Chief Complaint: New OB Finance Insurance Manager Required: No Is patient in pain?: No [...] PFSH Medical History Seasonal allergies Surgical History [place] teeth extracted H/O endoscopy Hx of colonoscopy Family History Mother Thyroid disorder Tumor removed Maternal Grandmother Endometriosis Sister Endometriosis Social History adopted: No household members: spouse housing: house current occupational status: employed 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 Normal [facility] Syphilis Antibodieson 2024 Syphilis Abs Non-Reactive Normal Nonreactive [facility] Comment on above: Performed By: #### L 509.4006, L3890.6102, L3890.6301, L509.8002, BTS, L3890.6006, L501.9985, L100.0100 #### [facility] [address] [place], [address] Type AND Screenon 09-19-2025 ABO and Rh group Nom (Bld) Blood group A Rh(D) positive Normal [facility] Comment on above: Order Comment: PN Performed By: #### L 509.4006, L3890.6102, L3890.6301, L509.8002, BTS, L3890.6006, L501.9985, L100.0100 #### [facility] [place], [address] CNOVon 09-09-2025 CNOV Office Visit (WOUCA) ELSA LOUIE ([id number]) 1 F Date Time Provider Department 09/09/25 [...] three ti (more content not included)... Normal [facility] Office Visit Reporton 2024 Office Visit Report [facility] [address] [place] [address] OFFICE VISIT Date of Service: 09/03/25 MR#: [id number] Acct: [id number] Patient: ELSA LOUIE Rep #: [id number] : 2005 Provider: Dr. Dalila umanzor MD Age/Sex: 20/F Location: [facility] Status: Signed Intake Vital Signs 12/25/18 01:12 09/03/25 09:24 Height 5 ft 2 in 5 ft 1 in Weight: 187 lb 7 oz BMI 35.4 Blood Pressure Location Lt brachial Position Sitting Intake Visit Reasons: PNOB Vitals Education Finance Insurance Manager Required: No Is patient in pain?: No [...] Branch Signature: Date (if applicable) CC: Normal [facility] BACTERIAL VAGINOSIS NAATon 1 Lactobacillus crispatus+gasseri+j ensenii + Gardnerella vaginalis + Atopobium vaginae rRNA AJAY+probe Ql (Vag fld) Not detected Normal Not detected [facility] Comment on above: Order Comment: Speci men Type: SWABOrdering Facility: [facility] Address: [address] [place] [address] Performed By: #### Erich POWERS CVTV ####[facility] [id number] [place] [address] [place] Bacteria Ur Culton Bacteria identified Cx Nom (U) CULTURE, URINE: No growth (<1,000 CFU/ml) Normal [facility] Comment on above: Performed By: #### 6 30-4 ####[facility] [id number] [place] [address] [place] THU/TRICHOMONAS NAATon 1 C. glabrata RNA AJAY+probe Ql (Vag fld) Not detected Normal Not detected [facility] Comment on above: Order Comment: Speci men Type: SWABOrdering Facility: [facility] Address: [address] [place] [address] Performed By: #### Erich VAMP, CVTV ####[facility] [id number] [address] [place] Thu sp DNA AJAY+probe Ql (Vag fld) Not detected Normal Not detected [facility] Comment on above: Order Comment: Speci men Type: SWABOrdering Facility: [facility] Address: [address] [place] [address] Result Comment: The Thu species group target includes C. albicans, C. tropicalis, C. parapsilosis, and C. dubliniensis. Performed By: #### B VAMP, CVTV ####[facility] [id number] [address] [place] T. vaginalis DNA AJAY+probe Ql (Unsp spec) Not detected Normal Not detected [facility] Comment on above: Order Comment: Speci men Type: SWABOrdering Facility: [facility] Address: [address] [place] [address] Performed By: #### B VAMP, CVTV ####[facility] [id number] [address] [facility] CNOVon 08-28-2025 CNOV Office Visit (OBGYWM ) ELSA LOUIE ([id number]) [birth year] F Date Time Provider Department 08/28/25 11:30 AM MCKENZIE CONSTANTINO OBGYWM During your visit today, we recorded the following information about you: Blood pressure Last Period 116/76 07/25/25 Mckenzie Constantino APRN.CNM 08/28/2025 11:57 AM Signed Tyre Retreader offered: Patient declines. Elsa Hunt Liban is [...] Living0 SAB0 IAB0 Ectopic0 Multiple0 Live Births0 Phlebotomy Instructor History LMP: 06/28/2025 (Exact Date), Having periods Age at Menarche: 9 Age at First : Age at Menopause: Phlebotomy Instructor History Comments: Sexual Activity: Not Currently; Male [...] discussed with the Patient or Patient's Authorized Cloth Finishing Range Back Tender. As applicable, any other physician, advance practice provider, medical student, or other health professional student that will be observing or involved in the sensitive examination for educational or training purposes was discussed with the Patient or Authorized Cloth Finishing Range Back Tender. The Patient or Authorized Cloth Finishing Range Back Tender has agreed to proceed with the sensitive [...] external genitalia normal, normal Bartholin's glands, urethra, [place]'s glands, no vulvar lesions, no cervical lesions, [...] use: Ne (more content not included)... Normal [facility] ELSA LOUIE ([id number]) 1 F Date Time Provider Department 08/22/25 [...] stated she would let our office know. [employer] message sent to Pt to clarify that [...] Fully Assessed Reason for Visit: Patient Question [1557] Prescriptions as of 08/22/2025 - vit/iron fum/folic [...] Encounter Status:Closed by PARISA GILBERT on 08/22/25 [facility] Bekah 07-12-2025 CNOV Office Visit (WOBUBBA) ELSA LOUIE ([id number]) 1 F Date Time Provider Department 07/12/25 8:45 AM JASEN GABRIEL During your visit today, we recorded the following information about you: Temperature Pulse Respiration Blood pressure 97.6 degrees 68/minute 20/minute 116/81 Weight Last Period 80 kg 06/28/25 Jasen Gabriel APRN.CRYSTALIZER 07/12/2025 9:28 AM Signed [facility] [...] foreign body of left foot, initial encounter (O06.574E) - Foreign body removed under local anesthesia. - Tetanus vaccination up to date. - Advised to keep wound clean and dry; no antibiotics indicated at this time. Full removal, patient tolerated well. 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 Patient/authorized small business sales representative agreed to proceed MDM Eye/Body Foreign body removal Date/Time: 07/12/2025 9:22 AM Performed by: Jasen Gabriel APRN.CRYSTALIZER Authorized by: Jasen Gabriel APRN.CRYSTALIZER Location: Location: Toe Toe location: L little [...] initial encounter [S90.852A] Order(s):Eye/Body Foreign body removal [[id number]] Order #: [id number] [] lidocaine 1%-EPINEPHrine 1: (more content not included)... Normal [facility] Eye/Body Foreign body remova zeeshan 07-12-2025 Jasen Gabriel APRN.C FERRY PILOT 07/12/2025 9:28 AM Eye/Body Foreign body removal Date/Time: 07/12/2025 9:22 AM Performed by: Jasen Gabriel APRN.CRYSTALIZER Authorized by: Jasen Gabriel APRN.CNP Location: Location: [...] of procedure: Tolerated well, no immediate complications [facility] AVASon 05-09-2025 ADH 1.1 pg/mL Normal 0.0-4.[address] [facility] Comment on above: Result Comment: This test was developed and its performance characteristics determined by [facility]. It has not been cleared or approved by the Food and Drug Administration. Performed At: [address] [id number] Sagar Carmona MD Ph:[phone] Performed By: #### VARSHA GALVAN UA #### [facility] [address], [place] [address] CNOVon 05-07-2025 CNOV Office Visit (OBGYWM ) ESLA LOUIE ([id number]) 1 F Date Time Provider Department 05/07/25 9:30 AM NICOLETTE NEUMANN OBRACHELWApril During your visit today, we recorded the following information about you: Blood pressure Weight Last Period 110/72 81.6 kg 05/03/25 Nicolette Neumann APRN.CNM 05/07/2025 12:45 PM Signed Obstetrics and Gynecology [place] [facility] Visit Subjective Recording using ambient [employer] software for draft documentation of the visit was discussed with the patient/authorized small business sales representative; all questions welcomed and answered. Patient/authorized small business sales representative agreed to proceed CHIEF COMPLAINT: Follow [...] flow. She describes her menstrual pattern as "very random," with multiple periods in a month or none at all. She also reports significant cramping and a sensation of pelvic heaviness described as feeling like a "bowling ball." She denies current sexual activity, with the [...] bowling ball in her vaginal area. Feels "heaviness" not painful but uncomfortable. Currently engaged not [...] severe weakness, described as feeling like a "limp noodle." She experiences these headaches every day, starting around 8768-4002 and worsening by evening, affecting her vision. [...] The patient expresses interest in consulting a meat service team member. She is hesitant to start control due [...] Living0 SAB0 IAB0 Ectopic0 Multiple0 Live Births0 Phlebotomy Instructor History LMP: 05/03/2025 (Exact Date), Having periods Age at Menarche: 9 Age at First : Age at Menopause: Phlebotomy Instructor History Comments: Sexual Activity: Not Currently; Male [...] generalized we (more content not included)... Normal [facility] CT HEAD OR BRAIN W/O CONTRAS [...] 05/04/2025 12:27:46 AM Ordering Provider: SADAF Smith [facility] .Auto Diffon 05-02-2025 Basophil, Absolute 0.1 10 3/mcL Normal 0.0-0.3 [facility] Comment on above: Performed By: #### P VARSHA CARRERA UA #### [facility] [address], [place] [address] Basophils/100 WBC (Bld) 0.9 % Normal 0.0-2.[address] [facility] Comment on above: Performed By: #### P REGU, UAMICAO, UA #### [address] [address] Eosinophil, Absolute 0.1 10 3/mcL Normal 0.0-0.[address] [facility] Comment on above: Performed By: #### P REGU, UAMICAO, UA #### [address] [address] Eosinophils/100 WBC (Bld) 2.3 % Normal 0.0-6.[address] [facility] Comment on above: Performed By: #### P REGU, UAMICAO, UA #### [address] [address] Lymphocyte, Absolute 1.7 10 3/mcL Normal 0.9-4.[address] [facility] Comment on above: Performed By: #### P REGU, UAMICAO, UA #### [address] [address] Lymphocytes/100 WBC (Bld) 30.1 % Normal 20.0-40.[address] [facility] Comment on above: Performed By: #### P REGU, UAMICAO, UA #### [address] [address] Monocyte, Absolute 0.4 10 3/mcL Normal 0.1-1.4 [facility] Comment on above: Performed By: #### P REGU, UAMICAO, UA #### [address] [address] Monocytes/100 WBC (Bld) 7.1 % Normal 2.0-13.[address] [facility] Comment on above: Performed By: #### P REGU, UAMICAO, UA #### [address] [address] Neutrophils/100 WBC (Bld) 59.6 % Normal 50.0-75.[address] [facility] Comment on above: Performed By: #### P REGU, UAMICAO, UA #### [address] [address] .GFRon 05-02-2025 Estimated Glomerular Filtration Rate 114 ml/min/1.73sqm Normal [facility] Comment on above: Result Comment: Stages of [...] By: #### P REGU, UAMICAO, UA #### [address] [address] .NEUABSon 05-02-2025 Neutrophil, Absolute 3.5 10 3/mcL Normal 2.3-8.[address] [facility] Comment on above: Performed By: #### P REGU, UAMICAO, UA #### [address] [address] CBCon 05-02-2025 Erythrocyte distribution width (RBC) [Ratio] 13.5 % Normal 11.5-15.[address] [facility] Comment on above: Performed By: #### P REGU, UAMICAO, UA #### [address] [address] Hematocrit (Bld) [Volume fraction] 36.4 % Normal 34.0-46.[address] [facility] Comment on above: Performed By: #### P REGU, UAMICAO, UA #### [address] [address] Hgb 12.4 G/dL Normal 12.0-16.[address] [facility] Comment on above: Performed By: #### P REGU, UAMICAO, UA #### [address] [address] MCH (RBC) [Entitic mass] 27.5 pg Normal 27.0-33.[address] [facility] Comment on above: Performed By: #### P REGUPILIMICGIULIANA UA #### [address] [address] MCHC 34.1 G/dL Normal 32.0-36.[address] [facility] Comment on above: Performed By: #### P REGU UAMICAO, UA #### [address] [address] MCV (RBC) [Entitic vol] 80.6 fL Normal 80.0-99.[address] [facility] Comment on above: Performed By: #### P REGVARSHA Valadez UA #### [address] [address] Platelet 284 10 3/mcL Normal 150-[address] [facility] Comment on above: Performed By: #### P REGUVARSHA UA #### [address] [address] Platelet mean volume (Bld) [Entitic vol] 8.6 fL Normal 6.6-10.[address] [facility] Comment on above: Performed By: #### P REGVARSHA Valadez UA #### [address] [address] RBC 4.51 10 6/mcL Normal 4.10-5.[address] [facility] Comment on above: Performed By: #### P REGUPILIMICGIULIANA, UA #### [address] [address] WBC 5.8 10 3/mcL Normal 4.5-10.[address] [facility] Comment on above: Performed By: #### P REGUPILIMICGIULIANA, UA #### [address] [address] CMPon 05-02-2025 Albumin Level 3.8 G/dL Normal 3.5-5.[address] [facility] Comment on above: Performed By: #### P REGUPILIMICAO, UA #### [address] [address] Albumin/Globulin [Mass ratio] 1.1 {ratio} Normal 1.1-2.[address] [facility] Comment on above: Performed By: #### P REGU, UAMICAO, UA #### [address] [address] ALP [Catalytic activity/Vol] 92 U/L Normal 40-[address] [facility] Comment on above: Performed By: #### P REGU, UAMICAO, UA #### [address] [address] ALT [Catalytic activity/Vol] 20 U/L Normal 14-[address] [facility] Comment on above: Performed By: #### P REGU, UAMICAO, UA #### [address] [address] AST [Catalytic activity/Vol] 20 U/L Normal 10-[address] [facility] Comment on above: Performed By: #### P REGU, UAMICAO, UA #### [address] [address] Bili Total 0.2 mg/dL Normal 0.2-1.[address] [facility] Comment on above: Result Comment: Use of this assay is not recommended for patients undergoing treatment with eltrombopag due to the potential for falsely elevated results. Performed By: #### P REGU, UAMICAO, UA #### [address] [address] BUN/Creatinine Ratio 11 ratio Normal 7-[address] [facility] Comment on above: Performed By: #### P REGU, UAMICAO, UA #### [address] [address] Calcium [Mass/Vol] 8.7 mg/dL Normal 8.4-10.2 [facility] Comment on above: Performed By: #### P REGU, UAMICAO, UA #### [address] [address] Chloride [Moles/Vol] 105 mmol/L Normal 98-[address] [facility] Comment on above: Performed By: #### P REGU, UAMICAO, UA #### [place] [address] CO2 [Moles/Vol] 28 mmol/L Normal 22-[address] [facility] Comment on above: Performed By: #### P REGU, UAMICAO, UA #### [place] [address] Creatinine [Mass/Vol] 0.76 mg/dL Normal 0.51-0.[address] [facility] Comment on above: Performed By: #### P REGU, UAMICAO, UA #### [place] [address] Electrolyte Balance 7.0 mEq/L Normal 4.0-15.0 [facility] Comment on above: Performed By: #### P REGU, UAMICAO, UA #### [place] [address] Globulin 3.5 G/dL Normal 2.7-4.[address] [facility] Comment on above: Performed By: #### P REGU, UAMICAO, UA #### [place] [address] Glucose [Mass/Vol] 91 mg/dL Normal 70-105 [facility] Comment on above: Performed By: #### P REGU, UAMICAO, UA #### [place] [address] Potassium [Moles/Vol] 4.4 mmol/L Normal 3.5-5.[address] [facility] Comment on above: Performed By: #### P REGU, UAMICAO, UA #### [place] [address] Sodium [Moles/Vol] 140 mmol/L Normal 136-145 [facility] Comment on above: Performed By: #### P REGU, UAMICAO, UA #### [place] [address] Total Protein 7.3 G/dL Normal 6.4-8.[address] [facility] Comment on above: Performed By: #### P REGU UAMICAO, UA #### [address] [address] Urea nitrogen [Mass/Vol] 8 mg/dL Normal 7-[address] [facility] Comment on above: Performed By: #### P REGU, UAMICAO, UA #### [address] [address] CRPon 05-02-2025 C-Reactive Protein 0.1 mg/dL Normal 0.0-0.3 [facility] Comment on above: Performed By: #### P REGU UAMICAO, UA #### [address] [address] ESRon 05-02-2025 Erythrocyte Sed Rate 9 mm/hr Normal 0-[address] [facility] Comment on above: Performed By: #### P REGU, UAMICAO, UA #### [address] [address] FT4on 05-02-2025 Free T4 [Mass/Vol] 0.78 ng/dL Normal 0.76-1.46 [facility] Comment on above: Performed By: #### P REGU, UAMICAO, UA #### [address] [address] LABORATORYOrdered By: SYSTEM SYSTEM on 05-02-2025 Albumin [...] 05-02-2025 Magnesium [Mass/Vol] 2.0 mg/dL Normal 1.8-2.[address] [facility] Comment on above: Performed By: #### P REGUVARSHA, UA #### [address] [address] TSHon 05-02-2025 TSH Qn 2.02 m[IU]/L Normal 0.36-3.[address] [facility] Comment on above: Performed By: #### P REGUPILIMICGIULIANA, UA #### [address] [address] CBC W Auto Differential pane l (Bld)on 03-04-2025 Basophils (Bld) [#/Vol] 0.05 10*3/uL [facility] Basophils/100 WBC (Bld) 0.8 % [facility] Differential cell count method Nom (Bld) Auto [facility] Eosinophils (Bld) [#/Vol] 0.13 10*3/uL [facility] Eosinophils/100 WBC (Bld) 2.1 % [facility] Erythrocyte distribution width (RBC) [Ratio] 12.5 % 11.5 - 15.0 % [facility] Hematocrit (Bld) [Volume fraction] 37.6 % 36.0 - 46.0 % [facility] Hemoglobin (Bld) [Mass/Vol] 13.2 g/dL 11.5 - 15.5 g/dL [facility] Immature granulocytes (Bld) [#/Vol] NINF [facility] Immature granulocytes/100 WBC (Bld) 0.3 % [facility] Interpretation and review of laboratory results Abnormal [facility] Lymphocytes (Bld) [#/Vol] 1.71 10*3/uL [facility] Lymphocytes/100 WBC (Bld) 28.1 % [facility] MCH (RBC) [Entitic mass] 27.6 pg 26.0 - 34.0 pg [facility] MCHC (RBC) [Mass/Vol] 35.1 g/dL 30.5 - 36.0 g/dL [facility] MCV (RBC) [Entitic vol] 78.7 fL Low 80.0 - 100.0 fL [facility] Monocytes (Bld) [#/Vol] 0.49 10*3/uL [facility] Monocytes/100 WBC (Bld) 8 % [facility] Neutrophils (Bld) [#/Vol] 3.69 10*3/uL [facility] Neutrophils/100 WBC (Bld) 60.7 % [facility] Nucleated RBC (Bld) [#/Vol] [facility] Nucleated RBC/100 WBC (Bld) [Ratio] 0 % /100 WBC [facility] Platelet mean volume (Bld) [Entitic vol] 10.4 fL 9.0 - 12.7 fL [facility] Platelets (Bld) [#/Vol] 300 10*3/uL [facility] RBC (Bld) [#/Vol] 4.78 10*6/uL 3.90 - 5.2 0 m/uL [facility] WBC (Bld) [#/Vol] 6.09 10*3/uL [facility] Basophils (Bld) [#/Vol] 0.05 10*3/uL Normal <0.11 [facility] Comment on above: Order Comment: Speci men Type: BLOOD SPECIMENOrdering Facility: [facility] Address: [address] [place] [address] Performed By: #### 5 7021-8 ####[facility] EASTRUEL [id number] [place] [address] [place] Basophils/100 WBC (Bld) 0.8 % Normal [facility] Comment on above: Order Comment: Speci men Type: BLOOD SPECIMENOrdering Facility: [facility] Address: [address] [place] [address] Performed By: #### 5 7021-8 ####[facility] [id number] [place] [address] [place] Differential cell count method Nom (Bld) Auto Normal [facility] Comment on above: Order Comment: Speci men Type: BLOOD SPECIMENOrdering Facility: [facility] Address: [address] [place] [address] Performed By: #### 5 7021-8 ####[facility] [id number] [place] [address] [place] Eosinophils (Bld) [#/Vol] 0.13 10*3/uL Normal <0.46 [facility] Comment on above: Order Comment: Speci men Type: BLOOD SPECIMENOrdering Facility: [facility] Address: [address] [place] [address] Performed By: #### 5 7021-8 ####[facility] [id number] [place] [address] [place] Eosinophils/100 WBC (Bld) 2.1 % Normal [facility] Comment on above: Order Comment: Speci men Type: BLOOD SPECIMENOrdering Facility: [facility] Address: [address] [place] [address] Performed By: #### 5 7021-8 ####[facility] [id number] [place] [address] [place] Erythrocyte distribution width (RBC) [Ratio] 12.5 % Normal 11.5-15.0 [facility] Comment on above: Order Comment: Speci men Type: BLOOD SPECIMENOrdering Facility: [facility] Address: [address] [place] [address] Performed By: #### 5 7021-8 ####[facility] PRISCILLAWNCLIA [id number] [place] [address] [place] Hematocrit (Bld) [Volume fraction] 37.6 % Normal 36.0-46.0 [facility] Comment on above: Order Comment: Speci men Type: BLOOD SPECIMENOrdering Facility: [facility] Address: [address] [place] [address] Performed By: #### 5 7021-8 ####[facility] [id number] [place] [address] [place] Hemoglobin (Bld) [Mass/Vol] 13.2 g/dL Normal 11.5-15.5 [facility] Comment on above: Order Comment: Speci men Type: BLOOD SPECIMENOrdering Facility: [facility] Address: [address] [place] [address] Performed By: #### 5 7021-8 ####[facility] [id number] [place] [address] [place] Immature granulocytes (Bld) [#/Vol] 10*3/uL Normal <0.10 [facility] Comment on above: Order Comment: Speci men Type: BLOOD SPECIMENOrdering Facility: [facility] Address: [address] [place] [address] Performed By: #### 5 7021-8 ####[facility] [id number] [place] [address] [place] Immature granulocytes/100 WBC (Bld) 0.3 % Normal [facility] Comment on above: Order Comment: Speci men Type: BLOOD SPECIMENOrdering Facility: [facility] Address: [address] [place] [address] Performed By: #### 5 7021-8 ####[facility] [id number] [place] [address] [place] Lymphocytes (Bld) [#/Vol] 1.71 10*3/uL Normal 1.00-4.00 [facility] Comment on above: Order Comment: Speci men Type: BLOOD SPECIMENOrdering Facility: [facility] Address: [address] [place] [address] Performed By: #### 5 7021-8 ####[facility] [id number] [place] [address] [place] Lymphocytes/100 WBC (Bld) 28.1 % Normal [facility] Comment on above: Order Comment: Speci men Type: BLOOD SPECIMENOrdering Facility: [facility] Address: [address] [place] [address] Performed By: #### 5 7021-8 ####[facility] [id number] [place] [address] [place] MCH (RBC) [Entitic mass] 27.6 pg Normal 26.0-34.0 [facility] Comment on above: Order Comment: Speci men Type: BLOOD SPECIMENOrdering Facility: [facility] Address: [address] [place] [address] Performed By: #### 5 7021-8 ####[facility] [id number] [place] [address] [place] MCHC (RBC) [Mass/Vol] 35.1 g/dL Normal 30.5-36.0 [facility] Comment on above: Order Comment: Speci men Type: BLOOD SPECIMENOrdering Facility: [facility] Address: [address] [place] [address] Performed By: #### 5 7021-8 ####[facility] [id number] [place] [address] [place] MCV (RBC) [Entitic vol] 78.7 fL Low 80.0-100.0 [facility] Comment on above: Order Comment: Speci men Type: BLOOD SPECIMENOrdering Facility: [facility] Address: [address] [place] [address] Performed By: #### 5 7021-8 ####[facility] PRISCILLAVJ [id number] [place] [address] [place] Monocytes (Bld) [#/Vol] 0.49 10*3/uL Normal <0.87 [facility] Comment on above: Order Comment: Speci men Type: BLOOD SPECIMENOrdering Facility: [facility] Address: [address] [place] [address] Performed By: #### 5 7021-8 ####[facility] [id number] [place] [address] [place] Monocytes/100 WBC (Bld) 8.0 % Normal [facility] Comment on above: Order Comment: Speci men Type: BLOOD SPECIMENOrdering Facility: [facility] Address: [address] [place] [address] Performed By: #### 5 7021-8 ####[facility] [id number] [place] [address] [place] Neutrophils (Bld) [#/Vol] 3.69 10*3/uL Normal 1.45-7.50 [facility] Comment on above: Order Comment: Speci men Type: BLOOD SPECIMENOrdering Facility: [facility] Address: [address] [place] [address] Performed By: #### 5 7021-8 ####[facility] [id number] [place] [address] [place] Neutrophils/100 WBC (Bld) 60.7 % Normal [facility] Comment on above: Order Comment: Speci men Type: BLOOD SPECIMENOrdering Facility: [facility] Address: [address] [place] [address] Performed By: #### 5 7021-8 ####[facility] [id number] [place] [address] [place] Nucleated RBC (Bld) [#/Vol] 10*3/uL Normal <0.01 [facility] Comment on above: Order Comment: Speci men Type: BLOOD SPECIMENOrdering Facility: [facility] Address: [address] [place] [address] Performed By: #### 5 7021-8 ####[facility] [id number] [place] [address] [place] Nucleated RBC/100 WBC (Bld) [Ratio] 0.0 /100 WBC Normal [facility] Comment on above: Order Comment: Speci men Type: BLOOD SPECIMENOrdering Facility: [facility] Address: [address] [place] [address] Performed By: #### 5 7021-8 ####[facility] [id number] [place] [address] [place] Platelet mean volume (Bld) [Entitic vol] 10.4 fL Normal 9.0-12.7 [facility] Comment on above: Order Comment: Speci men Type: BLOOD SPECIMENOrdering Facility: [facility] Address: [address] [place] [address] Performed By: #### 5 7021-8 ####[facility] [id number] [place] [address] [place] Platelets (Bld) [#/Vol] 300 10*3/uL Normal 150-400 [facility] Comment on above: Order Comment: Speci men Type: BLOOD SPECIMENOrdering Facility: [facility] Address: [address] [place] [address] Performed By: #### 5 7021-8 ####[facility] [id number] [place] [address] [place] RBC (Bld) [#/Vol] 4.78 10*6/uL Normal 3.90-5.20 [facility] Comment on above: Order Comment: Speci men Type: BLOOD SPECIMENOrdering Facility: [facility] Address: [address] [place] [address] Performed By: #### 5 7021-8 ####[facility] PARKJAXONL[facility] [id number] [place] WBC (Bld) [#/Vol] 6.09 10*3/uL Normal 3.70-11.00 [facility] Comment on above: Order Comment: Speci men Type: BLOOD SPECIMENOrdering Facility: [facility] Address: [address] [place] [address] Performed By: #### 5 7021-8 ####[facility] [id number] [place] [address] [place] Comprehensive metabolic 2000 panelOrdered By: Rebecca Sandoval on 03-04-2025 Albumin [Mass/Vol] 4.7 g/dL 3.9 - 4.9 g/dL [facility] ALP [Catalytic activity/Vol] 86 U/L 34 - 123 U/L [facility] ALT [Catalytic activity/Vol] 11 U/L 7 - 38 U/L [facility] Anion gap [Moles/Vol] 13 mmol/L 8 - 15 mmol/L [facility] AST [Catalytic activity/Vol] 19 U/L 13 - 35 U/L [facility] Bilirubin [Mass/Vol] 0.5 mg/dL 0.2 - 1.3 mg/dL [facility] Calcium [Mass/Vol] 9.5 mg/dL 8.5 - 10. 2 mg/dL [facility] Chloride [Moles/Vol] 103 mmol/L 98 - 107 mmol/L [facility] CO2 [Moles/Vol] 23 mmol/L 22 - 30 mmol/L [facility] Creatinine [Mass/Vol] 0.79 mg/dL 0.58 - 0.96 mg/dL [facility] GFR/1.73 sq M.predicted among non-blacks MDRD (S/P/Bld) [Vol rate/Area] 109 mL/min/{1.73_m2} - PINF [facility] Comment on above: Estimated Glomerular Filtration [...] [Mass/Vol] 99 mg/dL 74 - 99 mg/dL [facility] Comment on above: The [place] [employer] (ADA) provides guidance for [...] Standards of Medical Care in Diabetes 2016, [place] [employer]. Diabetes Care. 2016.39(Suppl 1). Interpretation and review of laboratory results Normal [facility] Potassium [Moles/Vol] 3.9 mmol/L 3.7 - 5.1 mmol/L [facility] Protein [Mass/Vol] 7.4 g/dL 6.3 - 8.0 g/dL [facility] Sodium [Moles/Vol] 139 mmol/L 136 - 144 mmol/L [facility] Urea nitrogen [Mass/Vol] 7 mg/dL 7 - 21 mg/dL [facility] Comprehensive metabolic 2000 panelon 03-04-2025 Albumin [Mass/Vol] 4.7 g/dL Normal 3.9-4.9 [facility] Comment on above: Order Comment: Speci men Type: BLOOD SPECIMENOrdering Facility: [facility] Address: [facility] [place] [address] Performed By: #### 2 4323-8 ####[facility] HAYDE MILLTOWNCLIA [id number] [place] [address] [place] ALP [Catalytic activity/Vol] 86 U/L Normal 34-123 [facility] Comment on above: Order Comment: Speci men Type: BLOOD SPECIMENOrdering Facility: [facility] Address: [address] [place] [address] Performed By: #### 2 4323-8 ####[facility] MILLTOWNCLIA [id number] [place] [address] [place] ALT [Catalytic activity/Vol] 11 U/L Normal 7-38 [facility] Comment on above: Order Comment: Speci men Type: BLOOD SPECIMENOrdering Facility: [facility] Address: [address] [place] [address] Performed By: #### 2 4323-8 ####[facility]ITALWNCLIA [id number] [place] [address] [place] Anion gap [Moles/Vol] 13 mmol/L Normal 8-15 [facility] Comment on above: Order Comment: Speci men Type: BLOOD SPECIMENOrdering Facility: [facility] Address: [address] [place] [address] Performed By: #### 2 4323-8 ####[facility] MILLTOWNCLIA [id number] [place] [address] [place] AST [Catalytic activity/Vol] 19 U/L Normal 13-35 [facility] Comment on above: Order Comment: Speci men Type: BLOOD SPECIMENOrdering Facility: [facility] Address: [address] [place] [address] Performed By: #### 2 4323-8 ####[facility] MILLTOWNCLIA [id number] [place] [address] [place] Bilirubin [Mass/Vol] 0.5 mg/dL Normal 0.2-1.3 [facility] Comment on above: Order Comment: Speci men Type: BLOOD SPECIMENOrdering Facility: [facility] Address: [address] [place] [address] Performed By: #### 2 4323-8 ####[facility] HAYDE GERMANLIA [id number] [place] [address] [place] Calcium [Mass/Vol] 9.5 mg/dL Normal 8.5-10.2 [facility] Comment on above: Order Comment: Speci men Type: BLOOD SPECIMENOrdering Facility: [facility] Address: [address] [place] [address] Performed By: #### 2 4323-8 ####[facility] HOSPITALWJAXONLIA [id number] [place] [address] [place] Chloride [Moles/Vol] 103 mmol/L Normal 98-107 [facility] Comment on above: Order Comment: Speci men Type: BLOOD SPECIMENOrdering Facility: [facility] Address: [address] [place] [address] Performed By: #### 2 4323-8 ####[facility] PARKNCLIA [id number] [place] [address] [place] CO2 [Moles/Vol] 23 mmol/L Normal 22-30 [facility] Comment on above: Order Comment: Speci men Type: BLOOD SPECIMENOrdering Facility: [facility] Address: [address] [place] [address] Performed By: #### 2 4323-8 ####[facility] HOSPITALWNCLIA [id number] [place] [address] [place] Creatinine [Mass/Vol] 0.79 mg/dL Normal 0.58-0.96 [facility] Comment on above: Order Comment: Speci men Type: BLOOD SPECIMENOrdering Facility: [facility] Address: [address] [place] [address] Performed By: #### 2 4323-8 ####[facility] [id number] [place] [address] [place] Creatinine and Glomerular filtration rate.predicted panel (S/P/Bld) 109 mL/min/1.73m??? Normal >=60 [facility] Comment on above: Order Comment: Omero cervantes Type: BLOOD SPECIMENOrdering Facility: [facility] Address: [address] [place] [address] Result Comment: Tamera mated Glomerular Filtration Rate [...] actual GFR. Performed By: #### 2 4323-8 ####[facility] [id number] [place] [address] [place] Glucose [Mass/Vol] 99 mg/dL Normal 74-99 [facility] Comment on above: Order Comment: Omero cervantes Type: BLOOD SPECIMENOrdering Facility: [facility] Address: [address] [place] [address] Result Comment: The [place] Diabetes Association (ADA) provides guidance for cutoff [...] Standards of Medical Care in Diabetes 2016, [place] Diabetes Association. Diabetes Care. 2016.39(Suppl 1). Performed By: #### 2 4323-8 ####[facility] [id number] [place] [address] [place] Potassium [Moles/Vol] 3.9 mmol/L Normal 3.7-5.1 [facility] Comment on above: Order Comment: Speci men Type: BLOOD SPECIMENOrdering Facility: [facility] Address: [address] [place] [address] Performed By: #### 2 4323-8 ####[facility] PARKHERMANN [id number] [place] [address] [place] Protein [Mass/Vol] 7.4 g/dL Normal 6.3-8.0 [facility] Comment on above: Order Comment: Speci men Type: BLOOD SPECIMENOrdering Facility: [facility] Address: [address] [place] [address] Performed By: #### 2 4323-8 ####[facility] PARKHERMANN [id number] [place] [address] [place] Sodium [Moles/Vol] 139 mmol/L Normal 136-144 [facility] Comment on above: Order Comment: Speci men Type: BLOOD SPECIMENOrdering Facility: [facility] Address: [address] [place] [address] Performed By: #### 2 4323-8 ####[facility]ER[facility] [id number] [place] [address] [place] Urea nitrogen [Mass/Vol] 7 mg/dL Normal 7-21 [facility] Comment on above: Order Comment: Speci men Type: BLOOD SPECIMENOrdering Facility: [facility] Address: [address] [place] [address] Performed By: #### 2 4323-8 ####[facility] PARKNCLIA [id number] [place] [address] [place] DHEA-S [facility] 03-04-2025 DHEA-S [Mass/Vol] 194.2 ug/dL 148.0 - 407.0 ug/dL [facility] Comment on above: Reference ranges are age and gender specific. For additional information, reference range tables can be found in the laboratory test directory. The normal values are based on the following source: Dehydroepiandrosterone sulfate (DHEA S) [package insert V 17.0 Syrian]. [facility] [place]: June 2013. Interpretation and review of laboratory results Normal [facility] DHEA-S [Mass/Vol] 194.2 ug/dL Normal 148.0-407.0 [facility] Comment on above: Order Comment: Speci men Type: BLOOD SPECIMENOrdering Facility: [facility] Address: [address] [place] [address] Result Comment: Refe rence ranges are age and gender specific. For additional information, reference range tables can be found in the laboratory test directory. The normal values are based on the following source: Dehydroepiandrosterone sulfate (DHEA S) [package insert V 17.0 Syrian]. [employer], [place], [place]: June 2013. Performed By: #### D RADHA, 64605-4, 2243-4, 33524-9 ####[facility] LABCLIA [id number] [place] [address] [place] ESTRADIOL-17B BLDon 03-04-20 E2 [Mass/Vol] 57 pg/mL [facility] Comment on above: This test is [...] 3243 pg/mL Second trimester : 1561 to 78670 pg/mL Third trimester : 8285 to >88525 pg/mL Post-menopausal Estradiol reference range: < 41 pg/mL Reference: 1. Estradiol - E2 (Estradiol III) [package insert V 3.0 Syrian]. [facility], [place], [place], April 2016. Estradiol SerPl-mCncon 03-04 E2 [Mass/Vol] 57 pg/mL Normal [facility] Comment on above: Order Comment: Speci men Type: BLOOD SPECIMENOrdering Facility: [facility] Address: [address] [place] [address] Result Comment: This test is not suitable [...] 3243 pg/mL Second trimester : 1561 to 31130 pg/mL Third trimester : 8285 to >85374 pg/mL Post-menopausal Estradiol reference range: < 41 pg/mL Reference: 1. Estradiol - E2 (Estradiol III) [package insert V 3.0 Syrian]. [facility] [facility] [facility], [place], [place], April 2016. Performed By: #### D RADHA, 90808-7, 2243-4, 06385-7 ####[facility] LABCLIA [id number] [place] [address] [place] FERRITINon 03-04-2025 Ferritin [Mass/Vol] 30.9 ng/mL 14.7 - 2 05.1 ng/mL [facility] FOLLICLE STIMULATING HORMONE on 03-04-2025 Follitropin Qn 4.4 m[IU]/mL See comment mIU/mL [facility] Comment on above: Reference range: Follicular: 3.5-12.5 mIU/mL Ovulation: 4.7-21.5 mIU/mL Luteal: 1.7-7.7 mIU/mL Postmenopausal: 25.8-134.8 mIU/mL [facility] SerPl-aCncon 03-04-2025 Follitropin Qn 4.4 m[IU]/mL Normal See comment [facility] Comment on above: Order Comment: Speci men Type: BLOOD SPECIMENOrdering Facility: [facility] Address: [address] [place], [place] [address] Result Comment: Refe beatrizce range: Follicular: 3.5-12.5 mIU/mL Ovulation: 4.7-21.5 mIU/mL Luteal: 1.7-7.7 mIU/mL Postmenopausal: 25.8-134.8 mIU/mL Performed By: #### D RADHA, 37117-2, 2243-4, 13771-6 ####[facility] LABCLIA [id number] [place] [address] [place] Ferritin SerPl-mCncon 2024 Ferritin [Mass/Vol] 30.9 ng/mL Normal 14.7-205.1 [facility] Comment on above: Order Comment: Speci men Type: BLOOD SPECIMENOrdering Facility: [facility] Address: [address] [place] [address] Performed By: #### 2 276-4 ####[facility] LABCLIA [id number] [place] [address] [place] Ferritin [Mass/Vol]on 2024 Interpretation and review of laboratory results Normal [facility] HYDROXYPROGESTERONE-17on 17-HYDROXYPROGESTER ONE QUANTITATIVE BY HPLC-MS/MS, SERUM OR PLASMA 116.56 ng/dL Normal <=206.00 [facility] Comment on above: Order Comment: Speci men Type: BLOOD SPECIMENOrdering Facility: [facility] Address: [address] [place] [address] Result Comment: INTE RPRETIVE INFORMATION for 17-Hydroxyprogesterone in females: Follicular 15 to 70 ng/dL Luteal 35 to 290 ng/dL REFERENCE INTERVAL: 17-Hydroxyprogesterone Qnt, HPLC-MS/MS Access complete set of age- and/or gender-specific reference intervals for this test in the [facility] Test Directory ([employer]). This test was developed and its performance characteristics determined by [facility]. It has not been cleared or approved by the US Food and Drug Administration. This test was performed in a CLIA certified laboratory and is intended for clinical purposes. Performed By: [facility] [address] [place] [address] [employer]: Jhony Ritchie MD, PhD CLIA Number: [id number] Performed By: #### H PROG ####[facility]OR[facility]IESCLIA [id number] [place] [address] HbA1c (Bld)on 03-04-2025 Average glucose Estimated from glycated hemoglobin (Bld) [Mass/Vol] 97 mg/dL [facility] Comment on above: eAG: (Estimated aver age glucose) is a calculated value from HgbA1c and is small business sales representative of the average blood glucose level in the last 2-3 month period. HbA1c (Bld) [Mass fraction] 5 % 4.3 - 5.6 % [facility] Comment on above: [place] Diabetes As sociation guidelines indicate that patients with HgbA1c in the range 5.7-6.4% are at increased risk for development of diabetes, and intervention by lifestyle modification may be beneficial. HgbA1c greater or equal to 6.5% is considered diagnostic of diabetes. [facility] Average glucose Estimated from glycated hemoglobin (Bld) [Mass/Vol] 97 mg/dL Normal [facility] Comment on above: Order Comment: Omero cervantes Type: BLOOD SPECIMENOrdering Facility: [facility] Address: [address] [place] [address] Result Comment: eAG: (Estimated average glucose) is a calculated value from HgbA1c and is small business sales representative of the average blood glucose level in the last 2-3 month period. Performed By: #### 5 5454-3 ####[facility] LABCLIA [id number] [address] [place] HbA1c (Bld) [Mass fraction] 5.0 % Normal 4.3-5.6 [facility] Comment on above: Order Comment: Omero cervantes Type: BLOOD SPECIMENOrdering Facility: [facility] Address: [address] [place] [address] Result Comment: [place] Diabetes Association guidelines indicate that patients with HgbA1c in the range 5.7-6.4% are at increased risk for development of diabetes, and intervention by lifestyle modification may be beneficial. HgbA1c greater or equal to 6.5% is considered diagnostic of diabetes. Performed By: #### 5 5454-3 ####[facility] LABCLIA [id number] [place] [address] [place] Iron and Iron binding capaci ty panelon 03-04-2025 Interpretation and review of laboratory results Normal [facility] Iron [Mass/Vol] 102 ug/dL 41 - 186 ug/dL [facility] Iron binding capacity [Mass/Vol] 342 ug/dL 232 - 386 ug/dL [facility] Iron/TIBC [Molar ratio] 29.8 % 15.0 - 57.0 % [facility] Iron [Mass/Vol] 102 ug/dL Normal 41-186 [facility] Comment on above: Order Comment: Speci men Type: BLOOD SPECIMENOrdering Facility: [facility] Address: [address] [place] [address] Performed By: #### Adalberto GARCIA, 27788-2, 2243-4, 50593-1 ####[facility] LABIA [id number] [address] STATES OF [facility] Iron binding capacity [Mass/Vol] 342 ug/dL Normal 232-386 [facility] Comment on above: Order Comment: Speci men Type: BLOOD SPECIMENOrdering Facility: [facility] Address: [address] [place] [address] Performed By: #### Adalberto GARCIA, 68052-3, 2243-4, 12382-5 ####[facility] LABIA [id number] [address] [place] Iron/TIBC [Molar ratio] 29.8 % Normal 15.0-57.0 [facility] Comment on above: Order Comment: Speci men Type: BLOOD SPECIMENOrdering Facility: [facility] Address: [address] [place] [address] Performed By: #### Adalberto GARCIA, 18618-3, 2242-4, 56728-8 ####[facility] LABIA [id number] [place] [address] [place] LH SerPl-aCncon 03-04-2025 Lutropin Qn 7.6 m[IU]/mL Normal See comment [facility] Comment on above: Order Comment: Speci men Type: BLOOD SPECIMENOrdering Facility: [facility] Address: [address] [place] [address] Result Comment: Refe rence range: Follicular: 2.4-12.6 mIU/mL Midcycle: 14.0-95.6 mIU/mL Luteal: 1.0-11.4 mIU/mL Post Fulton: 7.7-58.5 mIU/mL Performed By: #### L IPNF, 82100-4, 2842-3, 3016-3 ####[facility] LABCLIA [id number] [place] [address] [place] LIPID PANEL, NONFASTINGon Cholesterol [Mass/Vol] 185 mg/dL NINF - 200 mg/dL [facility] Comment on above: <200 mg/dL, Desirabl e 200-239 mg/dL, Borderline high >239 mg/dL, High HDL Cholesterol, Nonfasting 47 mg/dL 39 - PINF mg/dL [facility] Comment on above: 40-59 mg/dL, Accepta ble >59 mg/dL, High: Negative risk factor for coronary heart disease <40 mg/dL, Low: Positive risk factor for coronary heart disease Interpretation and review of laboratory results Abnormal [facility] LDL Cholesterol, Nonfasting 128 mg/dL High NINF - 100 mg/dL [facility] Comment on above: <100 mg/dL, Optimal 100-129 mg/dL, Near optimal/above optimal 130-159 mg/dL, Borderline high 160-189 mg/dL, High >189 mg/dL, Very high Secondary prevention optimal LDL Cholesterol levels are recommended to be < 70 mg/dL LDL/HDL Ratio, Nonfasting 2.72 mg/dL High NINF - 2.54 mg/dL [facility] Comment on above: Reference: 1. National Cholesterol Education Program ATP III Guideline At-A-Glance Quick Desk Reference: National Heart, Lung, and Blood [place]. National Institutes of Health. 2001: NIH Publication [...] and Adolescents: National Heart, Lung and Blood [place]. Pediatrics. 2011:128(Suppl 5):S490-780. Non HDL Cholesterol, Nonfasting 138 mg/dL High NINF - 130 mg/dL [facility] Comment on above: <130 mg/dL, Optimal 130-159 mg/dL, Near optimal/above optimal 160-189 mg/dL, Borderline high 190-219 mg/dL, High >219 mg/dL, Very high Secondary prevention optimal non HDL Cholesterol levels are recommended to be <100 mg/dL Total Chol/HDL Ratio, Nonfasting 3.94 mg/dL NINF - 5.10 mg/dL [facility] Triglycerides, Nonfasting 52 mg/dL NINF - 150 mg/dL [facility] Comment on above: <150 mg/dL, Normal 150-199 mg/dL, Borderline high 200-499 mg/dL, High >499 mg/dL, Very high VLDL Cholesterol, Nonfasting 10 mg/dL NINF - 30 mg/dL [facility] Cholesterol [Mass/Vol] 185 mg/dL Normal <200 [facility] Comment on above: Order Comment: Specrory cervantes Type: BLOOD SPECIMENOrdering Facility: [facility] Address: [address] [place] [address] Result Comment: <200 mg/dL, Desirable 200-239 mg/dL, Borderline high >239 mg/dL, High Performed By: #### L IPNF, 45241-1, 2842-3, 3016-3 ####[facility] LABCLIA [id number] [place] [address] [place] HDL CHOLESTEROL, NF 47 mg/dL Normal >39 [facility] Comment on above: Order Comment: Omero cervantes Type: BLOOD SPECIMENOrdering Facility: [facility] Address: [address] [place] [address] Result Comment: 40-5 9 mg/dL, Acceptable >59 mg/dL, High: Negative risk factor for coronary heart disease <40 mg/dL, Low: Positive risk factor for coronary heart disease Performed By: #### L IPNF, 12249-9, 2842-3, 3016-3 ####[facility] LABCLIA [id number] [place] [address] [place] LDL CHOLESTEROL, NF 128 mg/dL High <100 [facility] Comment on above: Order Comment: Omero cervantes Type: BLOOD SPECIMENOrdering Facility: [facility] Address: [address] [place] [address] Result Comment: <100 mg/dL, Optimal 100-129 mg/dL, Near optimal/above optimal 130-159 mg/dL, Borderline high 160-189 mg/dL, High >189 mg/dL, Very high Secondary prevention optimal LDL Cholesterol levels are recommended to be < 70 mg/dL Performed By: #### L IPNF, 62800-0, 2842-3, 3016-3 ####[facility] LABCLIA [id number] [address] [place] LDL/HDL RATIO, NF 2.72 mg/dL High <2.54 [facility] Comment on above: Order Comment: Omero cervantes Type: BLOOD SPECIMENOrdering Facility: [facility] Address: [address] [place] [address] Result Comment: David schaefer: 1. National Cholesterol Education Program ATP III Guideline At-A-Glance Quick Desk Reference: National Heart, Lung, and Blood [place]. National Institutes of Health. 2001: NIH Publication [...] and Adolescents: National Heart, Lung and Blood [place]. Pediatrics. 2011:128(Suppl 5):P790-754. Performed By: #### L IPNF, 27591-0, 2842-3, 3016-3 ####[facility] LABCLIA [id number] [place] [id number] [place] NON HDL CHOL, NF 138 mg/dL High <130 [facility] Comment on above: Order Comment: Speci men Type: BLOOD SPECIMENOrdering Facility: [facility] Address: [address] [place] [address] Result Comment: <130 mg/dL, Optimal 130-159 mg/dL, Near optimal/above optimal 160-189 mg/dL, Borderline high 190-219 mg/dL, High >219 mg/dL, Very high Secondary prevention optimal non HDL Cholesterol levels are recommended to be <100 mg/dL Performed By: #### L IPNF, 11699-4, 2842-3, 3016-3 ####[facility] LABCLIA [id number] [place] [address] [place] T CHOL/HDL RATIO NF 3.94 mg/dL Normal <5.10 [facility] Comment on above: Order Comment: Speci men Type: BLOOD SPECIMENOrdering Facility: [facility] Address: [address] [place] [address] Performed By: #### L IPNF, 99832-8, 2842-3, 3016-3 ####[facility] LABCLIA [id number] [place] [address] [place] TRIGLYCERIDES, NF 52 mg/dL Normal <150 [facility] Comment on above: Order Comment: Speci men Type: BLOOD SPECIMENOrdering Facility: [facility] Address: [address] [place] [address] Result Comment: <150 mg/dL, Normal 150-199 mg/dL, Borderline high 200-499 mg/dL, High >499 mg/dL, Very high Performed By: #### L IPNF, 57600-0, 2842-3, 3016-3 ####[facility] LABCLIA [id number] [place] [id number] [place] VLDL CHOLESTEROL, NF 10 mg/dL Normal <30 [facility] Comment on above: Order Comment: Speci men Type: BLOOD SPECIMENOrdering Facility: [facility] Address: [address] [place] [address] Performed By: #### L IPNF, 92511-0, 2842-3, 3016-3 ####[facility] LABIA [id number] [address] [address] [place] LUTEINIZING HORMONEon 2024 Lutropin Qn 7.6 m[IU]/mL See comment mIU/mL [facility] Comment on above: Reference range: Follicular: 2.4-12.6 mIU/mL Midcycle: 14.0-95.6 mIU/mL Luteal: 1.0-11.4 mIU/mL Post Elisa: 7.7-58.5 mIU/mL No Panel Informationon 03-04 Interpretation and review of laboratory results Normal [facility] PROLACTINon 03-04-2025 Prolactin [Mass/Vol] 18.5 ng/mL 4.4 - 33.8 ng/mL [facility] Comment on above: Prolactin test is pe rformed using the [employer] Electrochemiluminescence Immunoassay method. Results obtained with different methods or kits cannot be used interchangeably. Prolactin SerPl-mCncon 03-04 Prolactin [Mass/Vol] 18.5 ng/mL Normal 4.4-33.8 [facility] Comment on above: Order Comment: Speci men Type: BLOOD SPECIMENOrdering Facility: [facility] Address: [address] [place] [address] Result Comment: Prol actin test is performed using the [employer] Electrochemiluminescence Immunoassay method. Results obtained with different methods or kits cannot be used interchangeably. Performed By: #### L IPNF, 69200-4, 2842-3, 3016-3 ####[facility] LABIA [id number] [address] [place] [address] [place] TESTOSTERONE, FREE AND TOTAL , BY EQUILIBRIUM ULTRAFILTRATION MASS SPECTROMETRYon 03-04-2025 Testosterone [Mass/Vol] 29.4 ng/dL Normal 10.0-55.0 [facility] Comment on above: Order Comment: Speci men Type: BLOOD SPECIMENOrdering Facility: [facility] Address: [address] [place] [address] Performed By: #### T FTEST ####[facility] LABCLIA [id number] [place] [address] Testosterone Free [Mass/Vol] 0.86 ng/dL High 0.10-0.85 [facility] Comment on above: Order Comment: Speci men Type: BLOOD SPECIMENOrdering Facility: [facility] Address: [address] [place] [address] Performed By: #### T FTEST ####[facility] LABCLIA [id number] [place] [address] Testosterone Free/Testosterone.t otal [Mass fraction] 2.94 % High 0.50-2.80 [facility] Comment on above: Order Comment: Speci men Type: BLOOD SPECIMENOrdering Facility: [facility] Address: [address] [place] [address] Performed By: #### T FTEST ####[facility] LABCLIA [id number] [place] [address] THYROID STIMULATING HORMONEo n 03-04-2025 TSH Qn 1.76 m[IU]/L [facility] Comment on above: If the patient is pr egnant, TSH reference range varies by gestational period: First Trimester (weeks 9-12): 0.180-2.990 mIU/L Second Trimester: 0.110-3.980 mIU/L Third Trimester: 0.480-4.710 mIU/L Kory Johnson et al. A Practical Approach for the Verifications and Determination of Site- and Trimester-Specific Reference Intervals for Thyroid Function tests in . Thyroid, 2019:29:3:412-420. Mika E, et al. 2017 Guidelines of the [place] Thyroid Association for the Diagnosis and Management of Thyroid Disease during and the . Thyroid, 2017:27:3:315-389. TSH SerPl-aCncon 03-04-2025 TSH Qn 1.760 m[IU]/L Normal 0.270-4.200 [facility] Comment on above: Order Comment: Speci men Type: BLOOD SPECIMENOrdering Facility: [facility] Address: [address] [place] [address] Result Comment: If t he patient is , TSH reference range varies by gestational period: First Trimester (weeks 9-12): 0.180-2.990 mIU/L Second Trimester: 0.110-3.980 mIU/L Third Trimester: 0.480-4.710 mIU/L Kory Johnson et al. A Practical Approach for the Verifications and Determination of Site- and Trimester-Specific Reference Intervals for Thyroid Function tests in . Thyroid, 2019:29:3:412-420. Mika Fong, et al. 2017 Guidelines of the [place] [employer] for the Diagnosis and Management of Thyroid Disease during and the . Thyroid, 2017:27:3:315-389. Performed By: #### [place], [address]-9, 2842-3, 3016-3 ####[facility] LABCLIA [id number] [address] [place] C. trachomatis+N. gonorrhoea e DNA AJAY+probe Ql (Unsp spec)on 02-28-2025 C. trachomatis rRNA AJAY+probe Ql (Unsp spec) Not detected Not detected [facility] Interpretation and review of laboratory results Normal [facility] N. gonorrhoeae rRNA AJAY+probe Ql (Unsp spec) Not detected Not detected [facility] This FDA-approved as say has been modified to accept rectal swabs self-collected in a healthcare setting. For self-collected rectal swabs, the test was developed and its performance characteristics determined by the [facility]'s [facility] [place] ([facility]). It has not been cleared or approved by the FDA. [facility] is regulated under CLIA as qualified to perform high-complexity testing. This test is used for clinical purposes. It should not be regarded as investigational or for research. [facility] BACTERIAL VAGINOSIS NAATon 0 02-27-2025 Interpretation and review of laboratory results Normal [facility] Lactobacillus crispatus+gasseri+j ensenii + Gardnerella vaginalis + Atopobium vaginae rRNA AJAY+probe Ql (Vag fld) Not detected Not detected [facility] Lactobacillus crispatus+gasseri+j ensenii + Gardnerella vaginalis + Atopobium vaginae rRNA AJAY+probe Ql (Vag fld) Not detected Normal Not detected [facility] Comment on above: Order Comment: Speci men Type: SWABOrdering Facility: [facility] Address: [address] [place] [address] Performed By: #### B SHENA POWERSTV ####[facility] LABCLIA [id number] [address] [place] C. trachomatis+N. gonorrhoea e DNA AJAY+probe Ql (Unsp spec)on 02-27-2025 C. trachomatis rRNA AJAY+probe Ql (Unsp spec) Not detected Normal Not detected [facility] Comment on above: Order Comment: Speci men Type: SWABOrdering Facility: [facility] Address: [address] [place] [address] Performed By: #### 3 6902-5 ####[facility] LABCLIA [id number] [address] STATES OF [facility] N. gonorrhoeae rRNA AJAY+probe Ql (Unsp spec) Not detected Normal Not detected [facility] Comment on above: Order Comment: Speci men Type: SWABOrdering Facility: [facility] Address: [address] [place] [address] Performed By: #### 3 6902-5 ####[facility] LABCLIA [id number] [place] [address] [place] THU/TRICHOMONAS NAATon 0 02-27-2025 C. glabrata RNA AJAY+probe Ql (Vag fld) Not detected Not detected [facility] Thu sp DNA AJAY+probe Ql (Vag fld) Not detected Not detected [facility] Comment on above: The Thu species group target includes C. albicans, C. tropicalis, C. parapsilosis, and C. dubliniensis. Interpretation and review of laboratory results Normal [facility] T. vaginalis DNA AJAY+probe Ql (Unsp spec) Not detected Not detected [facility] C. glabrata RNA AJAY+probe Ql (Vag fld) Not detected Normal Not detected [facility] Comment on above: Order Comment: Speci men Type: SWABOrdering Facility: [facility] Address: [address] [place] [address] Performed By: #### B VAMP, CVTV ####[facility] LABCLIA [id number] [place] [address] [place] Thu sp DNA AJAY+probe Ql (Vag fld) Not detected Normal Not detected [facility] Comment on above: Order Comment: Speci men Type: SWABOrdering Facility: [facility] Address: [address] [place] [address] Result Comment: The Thu species group target includes C. albicans, C. tropicalis, C. parapsilosis, and C. dubliniensis. Performed By: #### B VAMP, CVTV ####[facility] LABCLIA [id number] [place] [address] [place] T. vaginalis DNA AJAY+probe Ql (Unsp spec) Not detected Normal Not detected [facility] Comment on above: Order Comment: Speci men Type: SWABOrdering Facility: [facility] Address: [address] [place] [address] Performed By: #### B VAMP, CVTV ####[facility] LABCLIA [id number] [place] [address] [place] CNOVon 02-27-2025 CNOV Office Visit (OBGYWApril ) ELSA LOUIE ([id number]) 1 F Date Time Provider Department 02/27/25 2:00 PM NICOLETTE NEUMANN During your visit today, we recorded the following information about you: Blood pressure Weight Last Period 110/ 78.9 kg 02/11/25 Thien NicoletteNAKITA de santiago.[facility] 03/04/2025 5:11 PM Signed Elsa Sortocandis is a 19 year old female who presents for problem visit for . HPI: Seen PCP and then referred to specialist. Tried several controls but didn't get any resolution. Seen provider at [place]. Menses have been never been normal. Menarche [...] bowling ball in her vaginal area. Feels "heaviness" not painful but uncomfortable. Currently engaged not [...] Living0 SAB0 IAB0 Ectopic0 Multiple0 Live Births0 Phlebotomy Instructor History LMP: 02/11/2025 (Exact Date), Having periods Age at Menarche: 9 Age at First : Age at Menopause: Phlebotomy Instructor History Comments: Sexual Activity: Not Currently; Male [...] discussed with the Patient or Patient's Authorized Cloth Finishing Range Back Tender. As applicable, any other physician, advance practice provider, medical student, or other health professional student that will be observing or involved in the sensitive examination for educational or training purposes was discussed with the Patient or Authorized Cloth Finishing Range Back Tender. The Patient or Authorized Cloth Finishing Range Back Tender has agreed to proceed with the sensitive [...] external genitalia normal, normal Bartholin's glands, urethra, [place]'s glands, no vulvar lesions, no cervical lesions, [...] BLD; Fu (more content not included)... Normal [facility] PAP TESTon 02-27-2025 ADEQUACY Normal [facility] Comment on above: Order Comment: Speci men Type: FLUID SPECIMENOrdering Facility: [facility] Address: [address] [place] [address] Result Comment: Sati sfactory for interpretation. Transformation zone present Performed By: #### L [id number] ####[facility] LABCLIA [id number] [place] [id number] [place] CASE REPORT Normal [facility] Comment on above: Order Comment: Speci men Type: FLUID SPECIMENOrdering Facility: [facility] Address: [address] [place] [address] Result Comment: Gyne cologic Cytology Report Case: [id number] Authorizing Provider: Nicolette Neumann APRN.CNApril Collected: 02/27/2025 04:16 PM Ordering Location: OB/Gynecology Received: 02/27/2025 04:40 PM First Screen: [place] CT, ASCP Specimen: Pap Test, ThinPrep, Cervix Performed By: #### L [id number] ####[facility] LABCLIA [id number] [place] [id number] [place] CLINICAL HISTORY, CYTOLOGY, TIMBER RIDER Routine Exam Normal [facility] Comment on above: Order Comment: Speci men Type: FLUID SPECIMENOrdering Facility: [facility] Address: [address] [place] [address] Performed By: #### L [id number] ####[facility] LABCLIA [id number] [address] [address] [place] FINAL PERFORMING LAB Normal [facility] Comment on above: Order Comment: Speci men Type: FLUID SPECIMENOrdering Facility: [facility] Address: [address] [place] [address] Result Comment: Tech nical component, ironing pleater screening performed at [facility], [address] [place] [address] [place] [address] CLIA# [id number] Diagnostic interpretation performed at [facility], [address] [place] [id number] CLIA# [id number] Tire Builder: Dakota Vanegas M.D. Performed By: #### L [id number] ####[facility] LABCLIA [id number] [address] [address] [place] INTERPRETATION, CYTOLOGY, TIMBER RIDER Normal [facility] Comment on above: Order Comment: Speci men Type: FLUID SPECIMENOrdering Facility: [facility] Address: [address] [place] [address] Result Comment: Nega tive for intraepithelial lesion or malignancy. at 1515 EDT Performed By: #### L [id number] ####[facility] LABCLIA [id number] [place] [id number] [place] LMP 02/11/2025 Normal [facility] Comment on above: Order Comment: Speci men Type: FLUID SPECIMENOrdering Facility: [facility] Address: [address] [place] [address] Performed By: #### L [id number] ####[facility] LABCLIA [id number] [place] [id number] [place] PAP DISCLAIMER COMMENT The Pap Smear is a screening test for cervical cancer. False negative results occur with all screening tests, emphasizing the need for rescreening at recommended intervals, and clinical correlation. Normal [facility] Comment on above: Order Comment: Speci men Type: FLUID SPECIMENOrdering Facility: [facility] Address: [address] [place] [address] Performed By: #### L [id number] ####[facility] LABIA [id number] [place] [id number] [place] PAP TRANSFORMER MAKER COMMENT This specimen has be en analyzed by the ThinPrep Imaging System, an automated imaging and review system, which assists the laboratory in evaluating cells on ThinPrep Pap tests. Following automated imaging, selected pearl from every slide are reviewed by a ironing pleater. Normal [facility] Comment on above: Order Comment: Speci men Type: FLUID SPECIMENOrdering Facility: [facility] Address: [address] [place] [address] Performed By: #### L [id number] ####[facility] LABCLIA [id number] [place] [address] [place] .Auto Diffon 11-21-2024 Basophil, Absolute 0.0 10 3/mcL Normal 0.0-0.2 [facility] Comment on above: Performed By: #### C BC, ANEU, MDW, GFR, CMP, ADIFF, LIP #### [address] [address] Basophils/100 WBC (Bld) 0.1 % Normal 0.0-2.[address] [facility] Comment on above: Performed By: #### C BC, ANEU, MDW, GFR, CMP, ADIFF, LIP #### [address] [address] Eosinophil, Absolute 0.0 10 3/mcL Normal 0.0-0.[address] [facility] Comment on above: Performed By: #### C BC, ANEU, MDW, GFR, CMP, ADIFF, LIP #### [address] [address] Eosinophils/100 WBC (Bld) 0.2 % Normal 0.0-7.[address] [facility] Comment on above: Performed By: #### C BC, ANEU, MDW, GFR, CMP, ADIFF, LIP #### [address] [address] Lymphocyte, Absolute 0.3 10 3/mcL Low 0.9-4.[address] [facility] Comment on above: Performed By: #### C BC, ANEU, MDW, GFR, CMP, ADIFF, LIP #### [address] [address] Lymphocytes/100 WBC (Bld) 2.4 % Low 20.0-40.[address] [facility] Comment on above: Performed By: #### C BC, ANEU, MDW, GFR, CMP, ADIFF, LIP #### [address] [address] Monocyte, Absolute 0.5 10 3/mcL Normal 0.1-1.4 [facility] Comment on above: Performed By: #### C BC, ANEU, MDW, GFR, CMP, ADIFF, LIP #### [address] [address] Monocytes/100 WBC (Bld) 3.9 % Normal 2.0-13.[address] [facility] Comment on above: Performed By: #### C BC, ANEU, MDW, GFR, CMP, ADIFF, LIP #### [address] [address] Neutrophils/100 WBC (Bld) 93.4 % High 50.0-75.[address] [facility] Comment on above: Performed By: #### C BC, ANEU, MDW, GFR, CMP, ADIFF, LIP #### [address] [address] .GFRon 11-21-2024 GFR Non- 89 ml/min/1.73sqm Normal [facility] Comment on above: Result Comment: GFR Population [...] By: #### P REGU, UAMICAO, UA #### [address] [address] GFR 108 ml/min/1.73sqm Normal [facility] Comment on above: Result Comment: GFR Population [...] By: #### P REGU, UAMICAO, UA #### [place] [phone] .MDWon 11-21-2024 Monocyte Distribution Width 19.33 Normal 0.00-20.[address] [facility] Comment on above: Result Comment: For ED adult patients suspected of sepsis, MDW<=20.0 does not rule out sepsis or risk of sepsis Performed By: #### C BC, ANEU, MDW, GFR, CMP, ADIFF, LIP #### [place] [id number] .NEUABSon 11-21-2024 Neutrophil, Absolute 13.0 10 3/mcL High 2.3-8.[address] [facility] Comment on above: Performed By: #### C BC, ANEU, MDW, GFR, CMP, ADIFF, LIP #### [place] [phone] .Urinalysis Microscopic (AO) on 11-21-2024 UA RBC LOADED Abnormal None Seen [facility] Comment on above: Performed By: #### P REGU, UAMICAO, UA #### [place] [id number] UA Squam Epithelial 0-5 Abnormal None Seen [facility] Comment on above: Performed By: #### P REGU, UAMICAO, UA #### [address] [address] UA WBC 5-10 Abnormal None Seen [facility] Comment on above: Performed By: #### P IVONNEU, UAMICGIULIANA, UA #### [place] [address] CBCon 11-21-2024 Erythrocyte distribution width (RBC) [Ratio] 13.2 % Normal 11.5-15.[address] [facility] Comment on above: Performed By: #### C BC, ANEU, MDW, GFR, CMP, ADIFF, LIP #### [place] [address] Hematocrit (Bld) [Volume fraction] 41.8 % Normal 34.0-46.[address] [facility] Comment on above: Performed By: #### C BC, ANEU, MDW, GFR, CMP, ADIFF, LIP #### [place] [address] Hgb 14.3 G/dL Normal 12.0-16.[address] [facility] Comment on above: Performed By: #### C BC, ANEU, MDW, GFR, CMP, ADIFF, LIP #### [place] [address] MCH (RBC) [Entitic mass] 27.7 pg Normal 27.0-33.[address] [facility] Comment on above: Performed By: #### C BC, ANEU, MDW, GFR, CMP, ADIFF, LIP #### [place] [address] MCHC 34.3 G/dL Normal 32.0-36.[address] [facility] Comment on above: Performed By: #### C BC, ANEU, MDW, GFR, CMP, ADIFF, LIP #### [place] [address] MCV (RBC) [Entitic vol] 80.6 fL Normal 80.0-99.[address] [facility] Comment on above: Performed By: #### C BC, ANEU, MDW, GFR, CMP, ADIFF, LIP #### [address] [address] Platelet 278 10 3/mcL Normal 150-[address] [facility] Comment on above: Performed By: #### C HELEN, AMY, MDW, GFR, CMP, ADIFF, LIP #### [address] [address] Platelet mean volume (Bld) [Entitic vol] 8.0 fL Normal 6.6-10.[address] [facility] Comment on above: Performed By: #### C HELEN, ANEU, MDW, GFR, CMP, ADIFF, LIP #### [address] [address] RBC 5.18 10 6/mcL Normal 4.10-5.[address] [facility] Comment on above: Performed By: #### C HELEN, AMY, MDW, GFR, CMP, ADIFF, LIP #### [address] [address] WBC 14.0 10 3/mcL High 4.5-10.[address] [facility] Comment on above: Performed By: #### C HELEN, AMY, MDW, GFR, CMP, ADIFF, LIP #### [address] [address] CMPon 11-21-2024 Albumin Level 4.0 G/dL Normal 3.5-5.[address] [facility] Comment on above: Performed By: #### C HELEN, MD AMYW, GFR, CMP, ADIFF, LIP #### [address] [address] Albumin/Globulin [Mass ratio] 1.3 {ratio} Normal 1.1-2.[address] [facility] Comment on above: Performed By: #### C HELEN, MD AMYW, GFR, CMP, ADIFF, LIP #### [address] [address] ALP [Catalytic activity/Vol] 103 U/L Normal 40-[address] [facility] Comment on above: Performed By: #### C HELEN, MD AMYW, GFR, CMP, ADIFF, LIP #### [address] [address] ALT [Catalytic activity/Vol] 21 U/L Normal 14-[address] [facility] Comment on above: Performed By: #### C HELEN, ESTRELLA REYES, GFR, CMP, ADIFF, LIP #### [address] [address] AST [Catalytic activity/Vol] 22 U/L Normal 10-[address] [facility] Comment on above: Performed By: #### C HELEN, ESTRELLA REYES, GFR, CMP, ADIFF, LIP #### [address] [address] Bili Total 0.6 mg/dL Normal 0.2-1.[address] [facility] Comment on above: Result Comment: Use of this assay is not recommended for patients undergoing treatment with eltrombopag due to the potential for falsely elevated results. Performed By: #### C HELEN, ESTRELLA REYES, GFR, CMP, ADIFF, LIP #### [address] [address] BUN/Creatinine Ratio 12 ratio Normal 7-[address] [facility] Comment on above: Performed By: #### C AMY CERVANTES MDW, GFR, CMP, ADIFF, LIP #### [address] [address] Calcium [Mass/Vol] 8.3 mg/dL Low 8.4-10.2 [facility] Comment on above: Performed By: #### C HELEN, ESTRELLA REYES, GFR, CMP, ADIFF, LIP #### [address] [address] Chloride [Moles/Vol] 107 mmol/L Normal 98-[address] [facility] Comment on above: Performed By: #### C HELEN, ESTRELLA REYES, GFR, CMP, ADIFF, LIP #### [address] [address] CO2 [Moles/Vol] 24 mmol/L Normal 22-[address] [facility] Comment on above: Performed By: #### C BC, ANEU, MDW, GFR, CMP, ADIFF, LIP #### [address] [address] Creatinine [Mass/Vol] 0.81 mg/dL Normal 0.55-1.[address] [facility] Comment on above: Result Comment: Test ing performed on Siemens Dimension EXL analyzer using a modified kinetic Joseph technique. Performed By: #### C BC, AMY, MDW, GFR, CMP, ADIFF, LIP #### [address] [address] Electrolyte Balance 12.0 mEq/L Normal 4.0-15.0 [facility] Comment on above: Performed By: #### C HELEN, AMY, W, GFR, CMP, ADIFF, LIP #### [address] [address] Globulin 3.1 G/dL Normal [facility] Comment on above: Performed By: #### C HELEN, MD AMYW, GFR, CMP, ADIFF, LIP #### [address] [address] Glucose [Mass/Vol] 103 mg/dL Normal 70-105 [facility] Comment on above: Performed By: #### C HELEN, AMY, MDW, GFR, CMP, ADIFF, LIP #### [address] [address] Potassium [Moles/Vol] 3.6 mmol/L Normal 3.5-5.[address] [facility] Comment on above: Performed By: #### C HELEN, AMY, MDW, GFR, CMP, ADIFF, LIP #### [address] [address] Sodium [Moles/Vol] 143 mmol/L Normal 136-145 [facility] Comment on above: Performed By: #### C HELEN, AMY, MDW, GFR, CMP, ADIFF, LIP #### [address] [address] Total Protein 7.1 G/dL Normal 6.4-8.[address] [facility] Comment on above: Performed By: #### C HELEN, AMY, ESTRELLA, GFR, CMP, ADIFF, LIP #### [facility] [address] [place], [place] [address] Urea nitrogen [Mass/Vol] 10 mg/dL Normal 7-[address] [facility] Comment on above: Performed By: #### C HELEN, AMY, W, GFR, CMP, ADIFF, LIP #### [facility] [address] [place], [place] [address] LABORATORYOrdered By: Bobbi Simon on 11-21-2024 Appearance [...] 11-21-2024 Lipase Level 18 U/L Normal 16-[address] [facility] Comment on above: Performed By: #### C BC, ANEU, MDW, GFR, CMP, ADIFF, LIP #### [place] [address] PREGUon 11-21-2024 HCG ( test) Ql (U) Negative Normal [facility] Comment on above: Performed By: #### P REGU, UAMICAO, UA #### [place] [address] test (u) int Not detected Invalid Interpretation Code [facility] Comment on above: Performed By: #### P REGU, UAMICAO, UA #### [place] [address] UAon 11-21-2024 Color (U) Yellow Normal [facility] Comment on above: Performed By: #### P REGU, UAMICAO, UA #### [place] [address] Glucose (U) [Mass/Vol] Negative Normal Negative [facility] Comment on above: Performed By: #### P REGU, UAMICAO, UA #### [place] [address] Ketones Ql (U) Negative Normal Negative [facility] Comment on above: Performed By: #### P REGU, UAMICAO, UA #### [place] [address] UA Appear Slightly Cloudy Abnormal Clear [facility] Comment on above: Performed By: #### P REGU, UAMICAO, UA #### [place] [address] UA Blood Large Abnormal Negative [facility] Comment on above: Performed By: #### P REGU, UAMICAO, UA #### [place] [address] UA Leuk Est Trace Abnormal Negative [facility] Comment on above: Performed By: #### P REGU, UAMICAO, UA #### [place] [address] UA Nitrite Negative Normal Negative [facility] Comment on above: Performed By: #### P REGU, UAMICAO, UA #### [place] [address] UA pH 5.5 Normal 5.0 - 8.[address] [facility] Comment on above: Performed By: #### P REGU, UAMICAO, UA #### [place] [address] UA Protein 30 mg/dL Normal Negative [facility] Comment on above: Performed By: #### P REGU, UAMICAO, UA #### [place] [address] UA Spec Grav >=1.030 Abnormal 1.015-1.[address] [facility] Comment on above: Performed By: #### P REGU, UAMICAO, UA #### [place] [address] UA Specimen Type Void Normal [facility] Comment on above: Performed By: #### P REGU, UAMICAO, UA #### [place] [address] UA Urobilinogen 0.2 E.U./dL Normal 0.2-1.[address] [facility] Comment on above: Performed By: #### P REGU, UAMICAO, UA #### [place] [address] Urobilinogen (U) [Mass/Vol] Negative Normal Negative [facility] Comment on above: Performed By: #### P REGU, UAMICAO, UA #### [place] [address] US ABD RIGHT UPPER QUADRANTo n 11-19-2024 [...] hepatic parenchymal echogenicity suggests mild hepatic steatosis. Drawer In: [facility] Transcribe Date/Time: Nov 19 2024 4:10P Dictated by : LIBORIO PHELPS MD This examination was interpreted and the report reviewed and electronically signed by: LIBORIO PHELPS MD on Nov 19 2024 4:11PM EST [id number] Normal [facility] US Abdomen RUQon 11-19-2024 IMPRESSION: Mildly increased hepatic parenchymal echogenicity suggests mild hepatic steatosis. Drawer In: [facility] Transcribe Date/Time: Nov 19 2024 4:10P [...] Ascites: None. DIVISION OF RADIOLOGY Provider, Dustin [facility] - 11/19/2024 * * *Final Report* * [...] hepatic parenchymal echogenicity suggests mild hepatic steatosis. Drawer In: [facility] Transcribe Date/Time: Nov 19 2024 4:10P Dictated by : LIBORIO PHELPS MD This examination was interpreted and the report reviewed and electronically signed by: LIBORIO PHELPS MD on Nov 19 2024 4:11PM EST [facility] Radiology Study observation (narrative) [facility] US Abdomen RUQOrdered By: Lawanda whitten Provider on 11-19-2024 [facility] 25(OH)D3 SerPl-mCncon 2023 25-hydroxyvitamin D3 [Mass/Vol] 9.3 ng/mL Low 31.0-80.0 [facility] Comment on above: Order Comment: Speci men Type: BLOOD SPECIMENOrdering Facility: [facility] Address: [address] [place] [address] Performed By: #### 1 989-3 ####[facility] [facility] [id number] [place] [address] [place] CBC panel Auto (Bld)on 11-05 Erythrocyte distribution width (RBC) [Ratio] 12.3 % Normal 11.5-15.0 [facility] Comment on above: Order Comment: Speci men Type: BLOOD SPECIMENOrdering Facility: [facility] Address: [address] [place] [address] Performed By: #### 5 8410-2 ####[facility] [id number] [place] [address] [place] Hematocrit (Bld) [Volume fraction] 36.7 % Normal 36.0-46.0 [facility] Comment on above: Order Comment: Speci men Type: BLOOD SPECIMENOrdering Facility: [facility] Address: [address] [place] [address] Performed By: #### 5 8410-2 ####[facility] [id number] [place] [address] [place] Hemoglobin (Bld) [Mass/Vol] 12.1 g/dL Normal 11.5-15.5 [facility] Comment on above: Order Comment: Speci men Type: BLOOD SPECIMENOrdering Facility: [facility] Address: [address] [place] [address] Performed By: #### 5 8410-2 ####[facility] [id number] [place] [address] [place] MCH (RBC) [Entitic mass] 26.9 pg Normal 26.0-34.0 [facility] Comment on above: Order Comment: Speci men Type: BLOOD SPECIMENOrdering Facility: [facility] Address: [address] [place] [address] Performed By: #### 5 8410-2 ####[facility] [id number] [place] [address] [place] MCHC (RBC) [Mass/Vol] 33.0 g/dL Normal 30.5-36.0 [facility] Comment on above: Order Comment: Speci men Type: BLOOD SPECIMENOrdering Facility: [facility] Address: [address] [place] [address] Performed By: #### 5 8410-2 ####[facility] [id number] [place] [address] [place] MCV (RBC) [Entitic vol] 81.6 fL Normal 80.0-100.0 [facility] Comment on above: Order Comment: Speci men Type: BLOOD SPECIMENOrdering Facility: [facility] Address: [address] [place] [address] Performed By: #### 5 8410-2 ####[facility] [id number] [place] [address] [place] Nucleated RBC (Bld) [#/Vol] 10*3/uL Normal <0.01 [facility] Comment on above: Order Comment: Speci men Type: BLOOD SPECIMENOrdering Facility: [facility] Address: [address] [place] [address] Performed By: #### 5 8410-2 ####[facility] [id number] [place] [address] [place] Platelet mean volume (Bld) [Entitic vol] 10.5 fL Normal 9.0-12.7 [facility] Comment on above: Order Comment: Speci men Type: BLOOD SPECIMENOrdering Facility: [facility] Address: [address] [place] [address] Performed By: #### 5 8410-2 ####[facility] [id number] [place] [address] [place] Platelets (Bld) [#/Vol] 349 10*3/uL Normal 150-400 [facility] Comment on above: Order Comment: Speci men Type: BLOOD SPECIMENOrdering Facility: [facility] Address: [address] [place] [address] Performed By: #### 5 8410-2 ####[facility] [id number] [place] [address] [place] RBC (Bld) [#/Vol] 4.50 10*6/uL Normal 3.90-5.20 [facility] Comment on above: Order Comment: Speci men Type: BLOOD SPECIMENOrdering Facility: [facility] Address: [address] [place] [address] Performed By: #### 5 8410-2 ####[facility] [id number] [address] [place] WBC (Bld) [#/Vol] 7.72 10*3/uL Normal 3.70-11.00 [facility] Comment on above: Order Comment: Speci men Type: BLOOD SPECIMENOrdering Facility: [facility] Address: [address] [place] [address] Performed By: #### 5 8410-2 ####[facility] [id number] [place] [address] [place] CRP SerPl-mCncon 11-05-2024 CRP [Mass/Vol] mg/L Normal <0.9 [facility] Comment on above: Order Comment: Speci men Type: BLOOD SPECIMENOrdering Facility: [facility] Address: [address] [place] [address] Performed By: #### 2 4323-8, 1988-5, 3016-3 ####[facility] [id number] [place] [id number] [place] Comprehensive metabolic 2000 panelon 11-05-2024 Albumin [Mass/Vol] 4.3 g/dL Normal 3.9-4.9 [facility] Comment on above: Order Comment: Speci men Type: BLOOD SPECIMENOrdering Facility: [facility] Address: [address] [place] [address] Performed By: #### 2 4323-06, 1988-03, 3016-01 ####[facility] [id number] [place] [id number] [place] ALP [Catalytic activity/Vol] 88 U/L Normal 34-123 [facility] Comment on above: Order Comment: Speci men Type: BLOOD SPECIMENOrdering Facility: [facility] Address: [address] [place] [address] Performed By: #### 2 4323-06, 1988-03, 3016-01 ####[facility] [id number] [place] [address] [place] ALT [Catalytic activity/Vol] 15 U/L Normal 7-38 [facility] Comment on above: Order Comment: Speci men Type: BLOOD SPECIMENOrdering Facility: [facility] Address: [address] [place] [address] Performed By: #### 2 8, 1988-03, 3016-01 ####[facility] [id number] [address] [address] [place] Anion gap [Moles/Vol] 10 mmol/L Normal 8-15 [facility] Comment on above: Order Comment: Speci men Type: BLOOD SPECIMENOrdering Facility: [facility] Address: [address] [place], [place] [address] Performed By: #### 2 432-8, 1988-03, 3016-01 ####[facility] [id number] [address] [address] [place] AST [Catalytic activity/Vol] 22 U/L Normal 13-35 [facility] Comment on above: Order Comment: Speci men Type: BLOOD SPECIMENOrdering Facility: [facility] Address: [address] [place] [id number] Performed By: #### 2 4323-8, 1988-03, 3016-01 ####[facility] [id number] [address] [address] [place] Bilirubin [Mass/Vol] 0.4 mg/dL Normal 0.2-1.3 [facility] Comment on above: Order Comment: Speci men Type: BLOOD SPECIMENOrdering Facility: [facility] Address: [address] [place], [place] [address] Performed By: #### 2 4323-8, 1988-03, 3016-01 ####[facility] [id number] [place] [address] [place] Calcium [Mass/Vol] 9.3 mg/dL Normal 8.5-10.2 [facility] Comment on above: Order Comment: Speci men Type: BLOOD SPECIMENOrdering Facility: [facility] Address: [address] [place], [place] [address] Performed By: #### 2 4323-8, 1988-03, 3016-01 ####[facility] [id number] [place] [address] [place] Chloride [Moles/Vol] 104 mmol/L Normal 98-107 [facility] Comment on above: Order Comment: Speci men Type: BLOOD SPECIMENOrdering Facility: [facility] Address: [address] [place], [place] [address] Performed By: #### 2 4323-8, 1988-03, 3016-01 ####[facility] [id number] [address] [address] [place] CO2 [Moles/Vol] 24 mmol/L Normal 22-30 [facility] Comment on above: Order Comment: Speci men Type: BLOOD SPECIMENOrdering Facility: [facility] Address: [address] [place], [place] [address] Performed By: #### 2 43201-26, 1988-03, 3016-01 ####[facility] [id number] [address] [address] [place] Creatinine [Mass/Vol] 0.68 mg/dL Normal 0.58-0.96 [facility] Comment on above: Order Comment: Omero cervantes Type: BLOOD SPECIMENOrdering Facility: [facility] Address: [address] [place] [address] Performed By: #### 2 4323-06, 1988-03, 3016-01 ####[facility] [id number] [place] [address] [place] Creatinine and Glomerular filtration rate.predicted panel (S/P/Bld) 127 mL/min/1.73m??? Normal >=60 [facility] Comment on above: Order Comment: Omero cervantes Type: BLOOD SPECIMENOrdering Facility: [facility] Address: [address] [place] [address] Result Comment: Tamera mated Glomerular Filtration Rate [...] actual GFR. Performed By: #### 2 4328, 1988-03, 3016-01 ####[facility] [id number] [address] [address] [place] Glucose [Mass/Vol] 93 mg/dL Normal 74-99 [facility] Comment on above: Order Comment: Omero cervantes Type: BLOOD SPECIMENOrdering Facility: [facility] Address: [address] [place] [address] Result Comment: The [place] [employer] (ADA) provides guidance for cutoff [...] Standards of Medical Care in Diabetes 2016, [place] [employer]. Diabetes Care. 2016.39(Suppl 1). Performed By: #### 2 4323-06, 1988-03, 3016-01 ####[facility] [id number] [address] [address] [place] Potassium [Moles/Vol] 3.9 mmol/L Normal 3.7-5.1 [facility] Comment on above: Order Comment: Speci men Type: BLOOD SPECIMENOrdering Facility: [facility] Address: [address] [place] [address] Performed By: #### 2 4323-06, 3016-01 ####[facility] [id number] [address] [address] [place] Protein [Mass/Vol] 6.9 g/dL Normal 6.3-8.0 [facility] Comment on above: Order Comment: Speci men Type: BLOOD SPECIMENOrdering Facility: [facility] Address: [address] [place], [place] [address] Performed By: #### 2 4323-06, 3016-01 ####[facility] [id number] [address] [address] [place] Sodium [Moles/Vol] 138 mmol/L Normal 136-144 [facility] Comment on above: Order Comment: Speci men Type: BLOOD SPECIMENOrdering Facility: [facility] Address: [address] [place], [place] [address] Performed By: #### 2 4323-06, 1988-03, 3016-01 ####[facility] [id number] [place] [id number] [place] Urea nitrogen [Mass/Vol] 9 mg/dL Normal 7-21 [facility] Comment on above: Order Comment: Speci men Type: BLOOD SPECIMENOrdering Facility: [facility] Address: [address] [place] [address] Performed By: #### 2 4323-8, 1988-03, 3016-01 ####[facility] [id number] [place] [address] [place] TSH SerPl-aCncon 11-05-2024 TSH Qn 1.430 m[IU]/L Normal 0.270-4.200 [facility] Comment on above: Order Comment: Speci men Type: BLOOD SPECIMENOrdering Facility: [facility] Address: [address] [place] [address] Result Comment: If t he patient is , TSH reference range varies by gestational period: First Trimester (weeks 9-12): 0.180-2.990 mIU/L Second Trimester: 0.110-3.980 mIU/L Third Trimester: 0.480-4.710 mIU/L Kory Johnson et al. A Practical Approach for the Verifications and Determination of Site- and Trimester-Specific Reference Intervals for Thyroid Function tests in . Thyroid, 2019:29:3:412-420. Mika E, et al. 2017 Guidelines of the [place] Thyroid Association for the Diagnosis and Management of Thyroid Disease during and the . Thyroid, 2017:27:3:315-389. Performed By: #### 2 4323-8, 1988-03, 3016-01 ####[facility] [id number] [place] [id number] [place] .GFRon 09-05-2024 GFR 95 ml/min/1.73sqm Normal [facility] Comment on above: Result Comment: GFR Population [...] By: #### P REGU, UAMICAO, UA #### [place] [address] [place], [place] [address] GFR Non- 78 ml/min/1.73sqm Normal [facility] Comment on above: Result Comment: GFR Population [...] By: #### P REGU, UAMICAO, UA #### [address] [address] BMPon 09-05-2024 BUN/Creatinine Ratio 16 ratio Normal 7-[address] [facility] Comment on above: Performed By: #### P REGU, UAMICAO, UA #### [place] [address] [place], [place] [address] Calcium [Mass/Vol] 9.4 mg/dL Normal 8.4-10.2 [facility] Comment on above: Performed By: #### P REGU, UAMICAO, UA #### [place] [address] [place], [place] [address] Chloride [Moles/Vol] 103 mmol/L Normal 98-[address] [facility] Comment on above: Performed By: #### P REGU, UAMICAO, UA #### [address] [address] CO2 [Moles/Vol] 27 mmol/L Normal 22-[address] [facility] Comment on above: Performed By: #### P REGU, UAMICAO, UA #### [address] [address] Creatinine [Mass/Vol] 0.91 mg/dL Normal 0.55-1.[address] [facility] Comment on above: Result Comment: Test ing performed on Siemens Dimension EXL analyzer using a modified kinetic Joseph technique. Performed By: #### P REGU, UAMICAO, UA #### [address] [address] Electrolyte Balance 8.0 mEq/L Normal 4.0-15.0 [facility] Comment on above: Performed By: #### P REGU, UAMICAO, UA #### [address] [address] Glucose [Mass/Vol] 105 mg/dL Normal 70-105 [facility] Comment on above: Performed By: #### P REGU, UAMICAO, UA #### [address] [address] Potassium [Moles/Vol] 3.7 mmol/L Normal 3.5-5.[address] [facility] Comment on above: Performed By: #### P REGU, UAMICAO, UA #### [address] [address] Sodium [Moles/Vol] 138 mmol/L Normal 136-145 [facility] Comment on above: Performed By: #### P REGU, UAMICAO, UA #### [address] [address] Urea nitrogen [Mass/Vol] 15 mg/dL Normal 7-[address] [facility] Comment on above: Performed By: #### P REGU, UAMICAO, UA #### [place] [address] [place], [place] [address] LABORATORYOrdered By: SYSTEM SYSTEM on 09-05-2024 Calcium [...] 09-05-2024 Magnesium [Mass/Vol] 1.7 mg/dL Low 1.8-2.[address] [facility] Comment on above: Performed By: #### P VARSHA CARRERA UA #### [facility] [address] [place], [place] [address] NM GASTRIC EMPTYING STUDYon 07-27-2024 DE GASTRIC EMPTYING STUDY ORIGINAL EXAMINATION: GASTRIC EMPTYING [...] 07/27/2024 3:35:18 PM Ordering Provider: YOSVANY BERNSTEIN [facility] .Auto Diffon 06-11-2024 Basophil, Absolute 0.0 10 3/mcL Normal 0.0-0.2 [facility] [place] Comment on above: Performed By: #### P REGU, UAMICAO, UA #### [address] [address] Basophils/100 WBC (Bld) 0.6 % Normal 0.0-2.5 [facility] ([place]) Comment on above: Performed By: #### P REGU, UAMICAO, UA #### [address] [address] Eosinophil, Absolute 0.1 10 3/mcL Normal 0.0-0.4 [facility] ([place]) Comment on above: Performed By: #### P REGU, UAMICAO, UA #### [address] [address] Eosinophils/100 WBC (Bld) 1.9 % Normal 0.0-7.0 [facility] ([place]) Comment on above: Performed By: #### P REGU, UAMICAO, UA #### [address] [address] Lymphocyte, Absolute 2.4 10 3/mcL Normal 0.8-3.9 [facility] ([place]) Comment on above: Performed By: #### P REGU, UAMICAO, UA #### [address] [address] Lymphocytes/100 WBC (Bld) 32.7 % Normal 10.0-50.0 [facility] ([place]) Comment on above: Performed By: #### P REGU, UAMICAO, UA #### [address] [address] Monocyte, Absolute 0.6 10 3/mcL Normal 0.2-1.0 [facility] ([place] Comment on above: Performed By: #### P REGU, UAMICAO, UA #### [address] [address] Monocytes/100 WBC (Bld) 8.6 % Normal 1.7-13.0 [facility] ([place] Comment on above: Performed By: #### P REGU, UAMICAO, UA #### [address] [address] Neutrophils/100 WBC (Bld) 56.2 % Normal 37.0-80.0 [facility] ([place] Comment on above: Performed By: #### P REGU, UAMICAO, UA #### [address] [address] .GFRon 06-11-2024 GFR 123 ml/min/1.73sqm Normal [facility] ([place] Comment on above: Result Comment: GFR Population [...] By: #### P REGU, UAMICAO, UA #### [address] [address] GFR Non- 102 ml/min/1.73sqm Normal [facility] ([place] Comment on above: Result Comment: GFR Population [...] mL/min/1.73 square meters Performed By: #### P REGUPILIMICAO UA #### [address] [address] .MDWon 06-11-2024 Monocyte Distribution Width 17.63 Normal 0.00-20.00 [facility] ([place] Comment on above: Result Comment: For ED adult patients suspected of sepsis, MDW<=20.0 does not rule out sepsis or risk of sepsis Performed By: #### Ly REGVARSHA Valadez UA #### [address] [address] .NEUABSon 06-11-2024 Neutrophil, Absolute 4.1 10 3/mcL Normal 2.9-6.2 [facility] ([place] Comment on above: Performed By: #### P REGVARSHA Valadez UA #### [address] [address] ABO/Rh (Gel)on 06-11-2024 ABO/Rh Interp Positive Invalid Interpretation Code [facility] [place] Comment on above: Performed By: #### P REGU UAMICAO UA #### [address] [address] ABS (Gel)on 06-11-2024 ABSC Interp (Gel) Negative Normal [facility] ([place] Comment on above: Performed By: #### P REGUPILIMICAO UA #### [address] [address] CBCon 06-11-2024 Erythrocyte distribution width (RBC) [Ratio] 13.4 % Normal 11.5-14.5 [facility] ([place] Comment on above: Performed By: #### P REGU UAMICAO, UA #### [address] [address] Hematocrit (Bld) [Volume fraction] 38.8 % Normal 37.0-47.0 [facility] ([place] Comment on above: Performed By: #### P REGU, UAMICAO, UA #### [address] [address] Hgb 13.3 G/dL Normal 12.0-16.0 [facility] ([place] Comment on above: Performed By: #### P REGU, UAMICAO, UA #### [address] [address] MCH (RBC) [Entitic mass] 28.9 pg Normal 27.0-31.2 [facility] ([place] Comment on above: Performed By: #### P REGU, UAMICAO, UA #### [place] [address] MCHC 34.4 G/dL Normal 33.0-37.0 [facility] [place] Comment on above: Performed By: #### P REGU, UAMICAO, UA #### [place] [id number] MCV (RBC) [Entitic vol] 84.0 fL Normal 80.0-94.0 [facility] ([place] Comment on above: Performed By: #### P REGU, UAMICAO, UA #### [address] [address] Platelet 314 10 3/mcL Normal 130-400 [facility] ([place] Comment on above: Performed By: #### P REGU, UAMICAO, UA #### [address] [address] Platelet mean volume (Bld) [Entitic vol] 8.0 fL Normal 7.4-10.4 [facility] ([place] Comment on above: Performed By: #### P REGU, UAMICAO, UA #### [place] [id number] RBC 4.62 10 6/mcL Normal 4.20-5.40 [facility] ([place] Comment on above: Performed By: #### P REGUPILIMICAO, UA #### [address] [address] WBC 7.3 10 3/mcL Normal 4.6-10.8 [facility] [place] Comment on above: Performed By: #### P REGU UAMICAO, UA #### [address] [address] CMPon 06-11-2024 Albumin Level 4.3 G/dL Normal 3.5-5.0 [facility] [place] Comment on above: Performed By: #### P REGUPILIMICAO, UA #### [address] [address] Albumin/Globulin [Mass ratio] 1.3 {ratio} Normal 1.1-2.5 [facility] ([place] Comment on above: Performed By: #### P REGUPILIMICAO, UA #### [address] [address] ALP [Catalytic activity/Vol] 87 U/L Normal 40-135 [facility] ([place] Comment on above: Performed By: #### P REGUPILIMICAO, UA #### [address] [address] ALT [Catalytic activity/Vol] 26 U/L Normal 14-59 [facility] ([place] Comment on above: Performed By: #### P REGU UAMICAO, UA #### [address] [address] AST [Catalytic activity/Vol] 24 U/L Normal 10-40 [facility] ([place] Comment on above: Performed By: #### P REGU UAMICAO, UA #### [address] [address] Bili Total 0.6 mg/dL Normal 0.2-1.0 [facility] [place] Comment on above: Result Comment: Use of this assay is not recommended for patients undergoing treatment with eltrombopag due to the potential for falsely elevated results. Performed By: #### P REGU, UAMICAO, UA #### [place] [phone] BUN/Creatinine Ratio 12 ratio Normal 7-27 [facility] ([place] Comment on above: Performed By: #### P REGU, UAMICAO, UA #### [place] [phone] Calcium [Mass/Vol] 9.6 mg/dL Normal 8.4-10.2 [facility] ([place] Comment on above: Performed By: #### P REGU, UAMICAO, UA #### [place] [phone] Chloride [Moles/Vol] 101 mmol/L Normal 98-107 [facility] ([place] Comment on above: Performed By: #### P REGU, UAMICAO, UA #### [place] [phone] CO2 [Moles/Vol] 32 mmol/L High 22-29 [facility] ([place] Comment on above: Performed By: #### P REGU, UAMICAO, UA #### [address] [address] Creatinine [Mass/Vol] 0.73 mg/dL Normal 0.55-1.02 [facility] ([place] Comment on above: Performed By: #### P REGU, UAMICAO, UA #### [address] [address] Electrolyte Balance 5.0 mEq/L Normal 4.0-15.0 [facility] ([place] Comment on above: Performed By: #### P REGU, UAMICAO, UA #### [address] [address] Globulin 3.2 G/dL Normal [facility] [place] Comment on above: Performed By: #### P REGU, UAMICAO, UA #### [address] [place] [address] Glucose [Mass/Vol] 90 mg/dL Normal 70-105 [facility] ([place] Comment on above: Performed By: #### P REGU UAMICAO, UA #### [address] [address] Potassium [Moles/Vol] 3.7 mmol/L Normal 3.5-5.1 [facility] ([place] Comment on above: Performed By: #### P REGU, UAMICAO, UA #### [address] [address] Sodium [Moles/Vol] 138 mmol/L Normal 136-145 [facility] ([place] Comment on above: Performed By: #### P REGU UAMICAO, UA #### [address] [address] Total Protein 7.5 G/dL Normal 6.4-8.2 [facility] ([place] Comment on above: Performed By: #### P REGU, UAMICAO, UA #### [address] [address] Urea nitrogen [Mass/Vol] 9 mg/dL Normal 7-18 [facility] ([place] Comment on above: Performed By: #### P REGU, UAMICAO, UA #### [address] [address] [address] ABD/PELVIS W/ IV CONTRAST ONLYon 06-11-2024 [...] Date: 06/11/2024 3:58:38 PM Ordering Provider: DEVIN Smith [facility] ([place] LABORATORYOrdered By: Zoila Bermudez on 06-11-2024 Occult Bld Stl Negative (06/11/24 3:40 PM) [facility] Work Phone: LABORATORYOrdered By: Romeo Brink on 06-11-2024 ABO and Rh group Nom (Bld) Blood group A Rh(D) positive Invalid Interpretation Code AO BB Auto SS Blood group antibody screen Ql Negative ABSC (06/11/24 1:26 PM) Normal AO BB Auto SS LABORATORYOrdered By: [employer] SYSTEM on 06-11-2024 Albumin BCP dye [Mass/Vol] [...] Lipase Level 32 U/L Normal 16-77 [facility] ([place]) Comment on above: Performed By: #### P VARSHA CARRERA UA #### [address] [address] PREGSon 06-11-2024 test (s) Negative Normal [facility] ([place] Comment on above: Performed By: #### P REGU, UAMICAO, UA #### [place] [address] test (s) int Not detected Invalid Interpretation Code [facility] ([place] Comment on above: Performed By: #### P REGU, UAMICAO, UA #### [place] [address] .Urinalysis Microscopic (AO) on 05-07-2024 UA Bacteria 1+ /hpf Abnormal [facility] ([place] Comment on above: Performed By: #### P REGU, UAMICAO, UA #### [place] [address] UA RBC None Seen Normal None Seen [facility] ([place] Comment on above: Performed By: #### P REGU, UAMICAO, UA #### [place] [address] UA Squam Epithelial 0-5 Abnormal None Seen [facility] ([place] Comment on above: Performed By: #### P REGU, UAMICAO, UA #### [place] [address] UA WBC 0-5 Abnormal None Seen [facility] [place] Comment on above: Performed By: #### P REGU, UAMICAO, UA #### [place] [address] LABORATORYOrdered By: Rey Rashid on 05-07-2024 Appearance [...] ( test) Ql (U) Negative Normal [facility] ([place] Comment on above: Performed By: #### P REGU, UAMICAO, UA #### [address] [address] test (u) int Not detected Invalid Interpretation Code [facility] [place] Comment on above: Performed By: #### P REGU, UAMICAO, UA #### [phone] [place], [place] [address] UAon 05-07-2024 Color (U) Yellow Normal [facility] ([place] Comment on above: Performed By: #### P REGU, [place], UA #### [facility] [address] [place], [place] [address] Glucose (U) [Mass/Vol] Negative Normal Negative [facility] ([place] Comment on above: Performed By: #### P REGU, [place], UA #### [place] [address] Ketones Ql (U) Negative Normal Negative [facility] ([place] Comment on above: Performed By: #### P REGU, [place], UA #### [place] [address] UA Appear Slightly Cloudy Abnormal Clear [facility] ([place] Comment on above: Performed By: #### P REGU, [place], UA #### [place] [address] UA Blood Negative Normal Negative [facility] ([place] Comment on above: Performed By: #### P REGU, UAMICAO, UA #### [place] [address] UA Leuk Est Trace Abnormal Negative [facility] [place] Comment on above: Performed By: #### P REGU, UAMICAO, UA #### [place] [address] UA Nitrite Negative Normal Negative [facility] [place] Comment on above: Performed By: #### P REGU, UAMICAO, UA #### [place] [address] UA pH 6.5 Normal 5.0 - 8.0 [facility] [place] Comment on above: Performed By: #### P REGU, UAMICAO, UA #### [place] [address] UA Protein Negative Normal Negative [facility] [place] Comment on above: Performed By: #### P REGU, UAMICAO, UA #### [place] [address] UA Spec Grav 1.025 Normal 1.015-1.025 [facility] [place] Comment on above: Performed By: #### P REGU, UAMICAO, UA #### [place] [address] UA Specimen Type Void Normal [facility] [place] Comment on above: Performed By: #### P REGU, UAMICAO, UA #### [address] [address] UA Urobilinogen 0.2 E.U./dL Normal 0.2-1.0 [facility] [place] Comment on above: Performed By: #### P REGU, UAMICAO, UA #### [address] [address] Urobilinogen (U) [Mass/Vol] Negative Normal Negative [facility] [place] Comment on above: Performed By: #### P REGU, UAMICAO, UA #### [address] [address] .Auto Diffon 03-15-2024 Basophil, Absolute 0.1 10 3/mcL Normal 0.0-0.2 [facility]) Comment on above: Performed By: #### G FR, CBC, CMP, ANEU, ADIFF #### [address] [address] Basophils/100 WBC (Bld) 0.8 % Normal 0.0-2.5 [facility] [place] Comment on above: Performed By: #### G FR, CBC, CMP, ANEU, ADIFF #### [address] [address] Eosinophil, Absolute 0.3 10 3/mcL Normal 0.0-0.4 [facility] [place] Comment on above: Performed By: #### G FR, CBC, CMP, ANEU, ADIFF #### [address] [address] Eosinophils/100 WBC (Bld) 3.8 % Normal 0.0-7.0 [facility] [place] Comment on above: Performed By: #### G FR, CBC, CMP, ANEU, ADIFF #### [address] [address] Lymphocyte, Absolute 2.2 10 3/mcL Normal 0.8-3.9 [facility] [place] Comment on above: Performed By: #### G FR, CBC, CMP, ANEU, ADIFF #### [address] [address] Lymphocytes/100 WBC (Bld) 29.4 % Normal 10.0-50.0 [facility] [place] Comment on above: Performed By: #### G FR, CBC, CMP, ANEU, ADIFF #### [address] [address] Monocyte, Absolute 0.8 10 3/mcL Normal 0.2-1.0 [facility] [place] Comment on above: Performed By: #### G FR, CBC, CMP, ANEU, ADIFF #### [address] [address] Monocytes/100 WBC (Bld) 11.5 % Normal 1.7-13.0 [facility] [place] Comment on above: Performed By: #### G FR, CBC, CMP, ANEU, ADIFF #### [address] [address] Neutrophils/100 WBC (Bld) 54.5 % Normal 37.0-80.0 [facility] [place] Comment on above: Performed By: #### G FR, CBC, CMP, ANEU, ADIFF #### [address] [address] .GFRon 03-15-2024 GFR Non- 86 ml/min/1.73sqm Normal [facility] [place] Comment on above: Result Comment: GFR Population [...] Performed By: #### P REGU, UA #### [address] [address] GFR 105 ml/min/1.73sqm Normal [facility] [place] Comment on above: Result Comment: GFR Population [...] Performed By: #### P REGU, UA #### [address] [address] .NEUABSon 03-15-2024 Neutrophil, Absolute 4.0 10 3/mcL Normal 2.9-6.2 [facility] [place] Comment on above: Performed By: #### P REGU, UA #### [address] [address] CBCon 03-15-2024 Erythrocyte distribution width (RBC) [Ratio] 13.6 % Normal 11.5-14.5 [facility] [place] Comment on above: Performed By: #### G FR, CBC, CMP, ANEU, ADIFF #### [address] [address] Hematocrit (Bld) [Volume fraction] 37.5 % Normal 37.0-47.0 [facility] [place] Comment on above: Performed By: #### G FR, CBC, CMP, ANEU, ADIFF #### [address] [address] Hgb 13.2 G/dL Normal 12.0-16.0 [facility] [place] Comment on above: Performed By: #### G FR, CBC, CMP, ANEU, ADIFF #### [address] [address] MCH (RBC) [Entitic mass] 28.7 pg Normal 27.0-31.2 [facility] [place] Comment on above: Performed By: #### G FR, CBC, CMP, ANEU, ADIFF #### [address] [address] MCHC 35.1 G/dL Normal 33.0-37.0 [facility] [place] Comment on above: Performed By: #### G FR, CBC, CMP, ANEU, ADIFF #### [address] [address] MCV (RBC) [Entitic vol] 81.8 fL Normal 80.0-94.0 [facility] [place] Comment on above: Performed By: #### G FR, CBC, CMP, ANEU, ADIFF #### [address] [address] Platelet 270 10 3/mcL Normal 130-400 [facility] [place] Comment on above: Performed By: #### G FR, CBC, CMP, ANEU, ADIFF #### [address] [address] Platelet mean volume (Bld) [Entitic vol] 8.7 fL Normal 7.4-10.4 [facility] [place] Comment on above: Performed By: #### G FR, CBC, CMP, ANEU, ADIFF #### [address] [address] RBC 4.59 10 6/mcL Normal 4.20-5.40 [facility] [place] Comment on above: Performed By: #### G FR, CBC, CMP, ANEU, ADIFF #### [address] [address] WBC 7.3 10 3/mcL Normal 4.6-10.8 [facility] [place] Comment on above: Performed By: #### G FR, CBC, CMP, ANEU, ADIFF #### [address] [address] CMPon 03-15-2024 Albumin Level 4.3 G/dL Normal 3.5-5.0 [facility] [place] Comment on above: Performed By: #### P REGU, UA #### [address] [address] Albumin/Globulin [Mass ratio] 1.7 {ratio} Normal 1.1-2.5 [facility] [place] Comment on above: Performed By: #### P REGU, UA #### [address] [address] ALP [Catalytic activity/Vol] 81 U/L Normal 40-135 [facility] [place] Comment on above: Performed By: #### P REGU, UA #### [address] [address] ALT [Catalytic activity/Vol] 18 U/L Normal 14-59 [facility] [place] Comment on above: Performed By: #### P REGU, UA #### [address] [address] AST [Catalytic activity/Vol] 13 U/L Normal 10-40 [facility] [place] Comment on above: Performed By: #### P REGU, UA #### [address] [address] Bili Total 0.5 mg/dL Normal 0.2-1.0 [facility] [place] Comment on above: Result Comment: Use of this assay is not recommended for patients undergoing treatment with eltrombopag due to the potential for falsely elevated results. Performed By: #### P REGU, UA #### [address] [address] BUN/Creatinine Ratio 14 ratio Normal 7-27 [facility] [place] Comment on above: Performed By: #### P REGU, UA #### [address] [address] Calcium [Mass/Vol] 8.8 mg/dL Normal 8.4-10.2 [facility] [place] Comment on above: Performed By: #### P REGU, UA #### [address] [address] Chloride [Moles/Vol] 107 mmol/L Normal 98-107 [facility] [place] Comment on above: Performed By: #### P REGU, UA #### [address] [address] CO2 [Moles/Vol] 25 mmol/L Normal 22-29 [facility] [place] Comment on above: Performed By: #### P REGU, UA #### [address] [address] Creatinine [Mass/Vol] 0.84 mg/dL Normal 0.55-1.02 [facility] [place] Comment on above: Performed By: #### P REGU, UA #### [address] [address] Electrolyte Balance 11.0 mEq/L Normal 4.0-15.0 [facility] ([place] Comment on above: Performed By: #### P REGU, UA #### [address] [address] Globulin 2.6 G/dL Normal [facility] [place] Comment on above: Performed By: #### P REGU, UA #### [address] [address] Glucose [Mass/Vol] 83 mg/dL Normal 70-105 [facility] [place] Comment on above: Performed By: #### P REGU, UA #### [address] [address] Potassium [Moles/Vol] 4.1 mmol/L Normal 3.5-5.1 [facility] [place] Comment on above: Performed By: #### P REGU, UA #### [address] [address] Sodium [Moles/Vol] 143 mmol/L Normal 136-145 [facility] [place] Comment on above: Performed By: #### P REGU, UA #### [address] [place], [place] [address] Total Protein 6.9 G/dL Normal 6.4-8.2 [facility] [place] Comment on above: Performed By: #### P REGU, UA #### [address] [place], [place] [address] Urea nitrogen [Mass/Vol] 12 mg/dL Normal 7-18 [facility]) Comment on above: Performed By: #### P REGU, UA #### [address] [place], [place] [address] CT HEAD OR BRAIN W/O CONTRAS Ton [...] 03/15/2024 2:12:13 PM Ordering Provider: NICOLETTE ESQUIVEL [facility] [place] LABORATORYOrdered By: SYSTEM SYSTEM on 03-15-2024 Albumin [...] TTG Ab (IgA) <4.0 Normal <=3.9 [facility] ([place] Comment on above: Result Comment: Norma harley [...] These test results were obtained with the [employer] QUANTA C-Notee R-tTG IgA CAREY. R-tTG IgA values obtained with different manufacturers' assay methods may not be used interchangeably. Performed By: #### P PILI CARRERA #### [place] [address] [place], [place] [address] GLIADon 11-08-2023 Gliadin Ab IgA <20 Normal <=19 [facility] ([place] Comment on above: Result Comment: Glia din [...] These test results were obtained with the [employer] QUANTA Lite Gliadin IgG II and Gliadin IgA II. Gliadin values obtained with different manufacturers' assay methods may not be used interchangeably. Performed By: #### P PILI CARRERA #### [place] [address] [place], [place] [address] Gliadin Ab IgG <20 Normal <=19 [facility] [place] Comment on above: Result Comment: Glia din [...] These test results were obtained with the [employer] QUANTA Lite Gliadin IgG II and Gliadin IgA II. Gliadin values obtained with different manufacturers' assay methods may not be used interchangeably. Performed By: #### P PILI CARRERA #### [address] [address] CRPon 11-07-2023 CRP [Mass/Vol] mg/L Normal 0.0-0.3 [facility] ([place] Comment on above: Performed By: #### PILI GALVAN #### [address] [address] XR UPPER GI W/AIR CONTRASTon 10-03-2023 XR UPPER GI W/AIR CONTRAST ORIGINAL EXAMINATION: DOUBLE CONTRAST UPPER GI SERIES 10/03/2023 TECHNIQUE: Double contrast upper GI series was performed with barium and air contrast. FLUOROSCOPY DOSE AND TYPE: Radiation Exposure Index: Kerma mGy, 31.2. 52 seconds. COMPARISON: CT abdomen pelvis 09/22/2023 HISTORY: ORDERING SYSTEM PROVIDED HISTORY: Reason for Exam: epigastric pain, nausea and vomiting FINDINGS: Visual Merchandising Specialist image demonstrates a nonobstructive bowel gas pattern. [...] Date: 10/03/2023 9:33:57 AM Ordering Provider: PROSPER MURILLO [facility] ([place]) .GFRon 09-26-2023 GFR 119 ml/min/1.73sqm Normal [facility] ([place] Comment on above: Result Comment: GFR Population [...] #### P REGU, UAMICAO, UA #### Geoffrey [address] [address] GFR Non- 99 ml/min/1.73sqm Normal [facility] [place] Comment on above: Result Comment: GFR Population [...] #### P REGU, UAMICAO, UA #### Geoffrey [address] [address] CMPon 09-26-2023 Albumin Level 3.9 G/dL Normal 3.5-5.0 [facility] [place] Comment on above: Performed By: #### P REGU, UAMICAO, UA #### [address] [address] Albumin/Globulin [Mass ratio] 1.3 {ratio} Normal 1.1-2.5 [facility] [place] Comment on above: Performed By: #### P REGU, UAMICAO, UA #### [address] [address] ALP [Catalytic activity/Vol] 75 U/L Normal 40-135 [facility] [place] Comment on above: Performed By: #### P REGU, UAMICAO, UA #### [address] [address] ALT [Catalytic activity/Vol] 16 U/L Normal 14-59 [facility] [place] Comment on above: Performed By: #### P REGU, UAMICAO, UA #### [place] [id number] AST [Catalytic activity/Vol] 18 U/L Normal 10-40 [facility] [place] Comment on above: Performed By: #### P REGU, UAMICAO, UA #### [address] [address] Bili Total 0.3 mg/dL Normal 0.2-1.0 [facility] [place] Comment on above: Result Comment: Use of this assay is not recommended for patients undergoing treatment with eltrombopag due to the potential for falsely elevated results. Performed By: #### P REGU, UAMICAO, UA #### [address] [address] BUN/Creatinine Ratio 12 ratio Normal 7-27 [facility] [place] Comment on above: Performed By: #### P REGU, UAMICAO, UA #### [address] [address] Calcium [Mass/Vol] 8.7 mg/dL Normal 8.4-10.2 [facility] [place] Comment on above: Performed By: #### P REGU, UAMICAO, UA #### [address] [address] Chloride [Moles/Vol] 106 mmol/L Normal 98-107 [facility] [place] Comment on above: Performed By: #### P REGU, UAMICAO, UA #### [address] [address] CO2 [Moles/Vol] 27 mmol/L Normal 22-29 [facility] [place] Comment on above: Performed By: #### P REGU, UAMICAO, UA #### [address] [address] Creatinine [Mass/Vol] 0.75 mg/dL Normal 0.55-1.02 [facility] [place] Comment on above: Performed By: #### P REGU, UAMICAO, UA #### [address] [address] Electrolyte Balance 10.0 mEq/L Normal 4.0-15.0 [facility] ([place] Comment on above: Performed By: #### P REGU, UAMICAO, UA #### [address] [address] Globulin 3.0 G/dL Normal [facility] [place] Comment on above: Performed By: #### P REGU, UAMICAO, UA #### [address] [address] Glucose [Mass/Vol] 92 mg/dL Normal 70-105 [facility] [place] Comment on above: Performed By: #### P REGU, UAMICAO, UA #### [address] [address] Potassium [Moles/Vol] 4.2 mmol/L Normal 3.5-5.1 [facility] [place] Comment on above: Performed By: #### P REGU, UAMICAO, UA #### [address] [address] Sodium [Moles/Vol] 143 mmol/L Normal 136-145 [facility] [place] Comment on above: Performed By: #### P REGU, UAMICAO, UA #### [facility] [address] [place], [place] [address] Total Protein 6.9 G/dL Normal 6.4-8.2 [facility] [place] Comment on above: Performed By: #### P REGU, UAMICAO, UA #### [address] [place], [place] [address] Urea nitrogen [Mass/Vol] 9 mg/dL Normal 7-18 [facility] [place] Comment on above: Performed By: #### P REGU, UAMICAO, UA #### [place] [address] [place], [place] [address] LABORATORYOrdered By: SYSTEM SYSTEM on 09-26-2023 Albumin [...] Basophil, Absolute 0.1 10 3/mcL Normal 0.0-0.2 [facility] [place] Comment on above: Performed By: #### P REGU, UA #### [address] [address] Basophils/100 WBC (Bld) 0.3 % Normal 0.0-2.5 [facility] ([place] Comment on above: Performed By: #### P REGU, UA #### [address] [address] Eosinophil, Absolute 0.1 10 3/mcL Normal 0.0-0.4 [facility] ([place] Comment on above: Performed By: #### P REGU, UA #### [address] [address] Eosinophils/100 WBC (Bld) 0.4 % Normal 0.0-7.0 [facility] [place] Comment on above: Performed By: #### P REGU, UA #### [address] [address] Lymphocyte, Absolute 0.5 10 3/mcL Low 0.8-3.9 [facility] [place] Comment on above: Performed By: #### P REGU, UA #### [address] [address] Lymphocytes/100 WBC (Bld) 3.5 % Low 10.0-50.0 [facility] [place] Comment on above: Performed By: #### P REGU, UA #### [address] [address] Monocyte, Absolute 0.7 10 3/mcL Normal 0.2-1.0 [facility] ([place] Comment on above: Performed By: #### P REGU, UA #### [place] [address] [place], [place] [address] Monocytes/100 WBC (Bld) 4.5 % Normal 1.7-13.0 [facility] [place] Comment on above: Performed By: #### P REGU, UA #### [place] [address] [place], [place] [address] Neutrophils/100 WBC (Bld) 91.3 % High 37.0-80.0 [facility] ([place]) Comment on above: Performed By: #### P REGU, UA #### [address] [address] .GFRon 09-22-2023 GFR Non- 83 ml/min/1.73sqm Normal [facility] [place] Comment on above: Result Comment: GFR Population [...] By: #### P REGU, UAMICAO, UA #### [place] [address] [place], [place] [address] GFR 101 ml/min/1.73sqm Normal [facility] [place] Comment on above: Result Comment: GFR Population [...] Performed By: #### VARSHA GALVAN UA #### [address] [address] .MDWon 09-22-2023 Monocyte Distribution Width 20.95 High 0.00-20.00 [facility] ([place]) Comment on above: Result Comment: For adults in ED, MDW>20.0 may be associated with a higher risk of sepsis during the first 12hrs of hospital admission Performed By: #### Ly CARRERA UA #### [address] [place] [id number] .NEUABSon 09-22-2023 Neutrophil, Absolute 13.3 10 3/mcL High 2.9-6.2 [facility] [place] Comment on above: Performed By: #### Ly CARRERA UA #### [address] [address] CBCon 09-22-2023 Erythrocyte distribution width (RBC) [Ratio] 13.3 % Normal 11.5-14.5 [facility] [place] Comment on above: Performed By: #### PILI GALVAN #### [address] [address] Hematocrit (Bld) [Volume fraction] 41.3 % Normal 37.0-47.0 [facility] [place] Comment on above: Performed By: #### Ly CARRERA UA #### [address] [address] Hgb 14.0 G/dL Normal 12.0-16.0 [facility] [place] Comment on above: Performed By: #### Ly CARRERA UA #### [address] [address] MCH (RBC) [Entitic mass] 27.5 pg Normal 27.0-31.2 [facility] [place] Comment on above: Performed By: #### P REGU, UA #### [address] [address] MCHC 33.8 G/dL Normal 33.0-37.0 [facility] [place] Comment on above: Performed By: #### P DEANDRE, UA #### Geoffrey [address] [address] MCV (RBC) [Entitic vol] 81.5 fL Normal 80.0-94.0 [facility] [place] Comment on above: Performed By: #### P DEANDRE, UA #### [address] [address] Platelet 297 10 3/mcL Normal 130-400 [facility] [place] Comment on above: Performed By: #### P DEANDRE, UA #### Geoffrey [address] [address] Platelet mean volume (Bld) [Entitic vol] 7.8 fL Normal 7.4-10.4 [facility] [place] Comment on above: Performed By: #### P DEANDRE, UA #### [address] [address] RBC 5.07 10 6/mcL Normal 4.20-5.40 [facility] [place] Comment on above: Performed By: #### P DEANDRE, UA #### [address] [address] WBC 14.6 10 3/mcL High 4.6-10.8 [facility] [place] Comment on above: Performed By: #### P REGRory, UA #### [address] [address] CMPon 09-22-2023 Albumin Level 4.8 G/dL Normal 3.5-5.0 [facility] [place] Comment on above: Performed By: #### P REGU UAMICGIULIANA UA #### Geoffrey [address] [address] Albumin/Globulin [Mass ratio] 1.5 {ratio} Normal 1.1-2.5 [facility] [place] Comment on above: Performed By: #### P REGU, UAMICAO, UA #### [address] [address] ALP [Catalytic activity/Vol] 100 U/L Normal 40-135 [facility] [place] Comment on above: Performed By: #### P REGU, UAMICAO, UA #### [address] [address] ALT [Catalytic activity/Vol] 17 U/L Normal 14-59 [facility] [place] Comment on above: Performed By: #### P REGU, UAMICAO, UA #### [address] [address] AST [Catalytic activity/Vol] 19 U/L Normal 10-40 [facility] [place] Comment on above: Performed By: #### P REGU, UAMICAO, UA #### [address] [address] Bili Total 1.1 mg/dL High 0.2-1.0 [facility] [place] Comment on above: Result Comment: Use of this assay is not recommended for patients undergoing treatment with eltrombopag due to the potential for falsely elevated results. Performed By: #### P REGU, UAMICAO, UA #### [address] [address] BUN/Creatinine Ratio 16 ratio Normal 7-27 [facility] [place] Comment on above: Performed By: #### P REGU, UAMICAO, UA #### [address] [address] Calcium [Mass/Vol] 9.1 mg/dL Normal 8.4-10.2 [facility] [place] Comment on above: Performed By: #### P REGU, UAMICAO, UA #### [address] [address] Chloride [Moles/Vol] 101 mmol/L Normal 98-107 [facility] [place] Comment on above: Performed By: #### P REGU, UAMICAO, UA #### [address] [address] CO2 [Moles/Vol] 24 mmol/L Normal 22-29 [facility] [place] Comment on above: Performed By: #### P REGU, UAMICAO, UA #### [address] [address] Creatinine [Mass/Vol] 0.87 mg/dL Normal 0.55-1.02 [facility] [place] Comment on above: Performed By: #### P REGU, UAMICAO, UA #### [address] [address] Electrolyte Balance 15.0 mEq/L Normal 4.0-15.0 [facility] [place] Comment on above: Performed By: #### P REGU, UAMICAO, UA #### [address] [address] Globulin 3.2 G/dL Normal [facility] [place] Comment on above: Performed By: #### P REGU, UAMICAO, UA #### [address] [address] Glucose [Mass/Vol] 99 mg/dL Normal 70-105 [facility] [place] Comment on above: Performed By: #### P REGU, UAMICAO, UA #### [address] [address] Potassium [Moles/Vol] 3.4 mmol/L Low 3.5-5.1 [facility] [place] Comment on above: Performed By: #### P REGU, UAMICAO, UA #### [address] [address] Sodium [Moles/Vol] 140 mmol/L Normal 136-145 [facility] [place] Comment on above: Performed By: #### P REGU, UAMICAO, UA #### [address] [address] Total Protein 8.0 G/dL Normal 6.4-8.2 [facility] [place] Comment on above: Performed By: #### P REGU, UAMICAO, UA #### [facility] [address] [place], [place] [address] Urea nitrogen [Mass/Vol] 14 mg/dL Normal 7-18 [facility] [place] Comment on above: Performed By: #### P REGU, UAMICAO, UA #### [facility] [address] [place], [place] [address] CT ABD/PELVIS W/ IV CONTRAST ONLYon 09-22-2023 [...] 10:16:08 PM Ordering Provider: DAIN Smith [facility] [place] LABORATORYOrdered By: SYSTEM SYSTEM on 09-22-2023 Albumin [...] Lipase Level 27 U/L Normal 16-77 [facility] [place] Comment on above: Performed By: #### P VARSHA CARRERA UA #### [address] [address] PREGUon 09-22-2023 HCG ( test) Ql (U) Negative Normal [facility] [place] Comment on above: Performed By: #### P REGU, UA #### [address] [address] test (u) int Not detected Invalid Interpretation Code [facility] ([place]) Comment on above: Performed By: #### P REGU, UA #### [address] [address] UAon 09-22-2023 Color (U) Yellow Normal [facility] ([place]) Comment on above: Performed By: #### P REGU, UA #### [place] [id number] Glucose (U) [Mass/Vol] Negative Normal Negative [facility] ([place]) Comment on above: Performed By: #### P REGU, UA #### [place] [address] Ketones Ql (U) 40 mg/dL Abnormal Negative [facility] ([place]) Comment on above: Performed By: #### P REGU, UA #### [place] [address] UA Appear Clear Normal Clear [facility] [place] Comment on above: Performed By: #### P REGU, UA #### [address] [address] UA Bili Small Abnormal Negative [facility] [place] Comment on above: Performed By: #### P REGU, UA #### [address] [address] UA Blood Trace Abnormal Negative [facility] [place] Comment on above: Performed By: #### P REGU, UA #### [address] [address] UA Leuk Est Negative Normal Negative [facility] [place] Comment on above: Performed By: #### P REGU, UA #### [address] [address] UA Nitrite Negative Normal Negative [facility] [place] Comment on above: Performed By: #### P REGU, UA #### [place] [id number] UA pH 5.0 Normal 5.0 - 8.0 [facility]) Comment on above: Performed By: #### P REGU, UA #### [address] [address] UA Protein Negative Normal Negative [facility]) Comment on above: Performed By: #### P REGU, UA #### [address] [address] UA Spec Grav >=1.030 Abnormal 1.015-1.025 [facility]) Comment on above: Performed By: #### P REGU, UA #### [address] [address] UA Specimen Type Clean Catch Normal [facility]) Comment on above: Performed By: #### P REGU, UA #### [address] [address] UA Urobilinogen 0.2 E.U./dL Normal 0.2-1.0 [facility]) Comment on above: Performed By: #### P REGU, UA #### [place] [address] .Urinalysis Microscopic (AO) on 09-11-2023 UA RBC LOADED Abnormal None Seen [facility]) Comment on above: Performed By: #### U A, UAMICAO, PREGU #### [place] [id number] UA Squam Epithelial 0-5 Abnormal None Seen [facility] [place] Comment on above: Performed By: #### U A, UAMICAO, PREGU #### [address] [address] UA WBC None Seen Normal None Seen [facility]) Comment on above: Performed By: #### U A, UAMICAO, PREGU #### [place] [address] LABORATORYOrdered By: Steven Mckeon on 09-11-2023 Appearance [...] ( test) Ql (U) Negative Normal [facility] [place] Comment on above: Performed By: #### U VARSHA Hunt PREGU #### Geoffrey [address] [address] test (u) int Not detected Invalid Interpretation Code [facility] [place] Comment on above: Performed By: #### U A, UAMICAO, PREGU #### [place] [address] UAon 09-11-2023 Color (U) Yellow Normal [facility] [place] Comment on above: Performed By: #### U A, UAMICAO, PREGU #### [place] [phone] Glucose (U) [Mass/Vol] Negative Normal Negative [facility] [place] Comment on above: Performed By: #### U A, UAMICAO, PREGU #### [place] [address] Ketones Ql (U) Negative Normal Negative [facility] [place] Comment on above: Performed By: #### U A, UAMICAO, PREGU #### [place] [address] UA Appear Clear Normal Clear [facility] [place] Comment on above: Performed By: #### U A, UAMICAO, PREGU #### [place] [address] UA Blood Large Abnormal Negative [facility] [place] Comment on above: Performed By: #### U A, UAMICAO, PREGU #### [place] [address] UA Leuk Est Negative Normal Negative [facility] [place] Comment on above: Performed By: #### U A, UAMICAO, PREGU #### [place] [address] UA Nitrite Negative Normal Negative [facility] [place] Comment on above: Performed By: #### U A, UAMICAO, PREGU #### [place] [address] UA pH 6.0 Normal 5.0 - 8.0 [facility] [place] Comment on above: Performed By: #### U A, UAMICAO, PREGU #### [place] [phone] UA Protein Trace Normal Negative [facility] [place] Comment on above: Performed By: #### U A, UAMICAO, PREGU #### [place] [address] UA Spec Grav >=1.030 Abnormal 1.015-1.025 [facility] [place] Comment on above: Performed By: #### U A, UAMICAO, PREGU #### [place] [address] UA Specimen Type Clean Catch Normal [facility] [place] Comment on above: Performed By: #### U A, UAMICAO, PREGU #### [place] [place] [address] UA Urobilinogen 0.2 E.U./dL Normal 0.2-1.0 [facility] [place]) Comment on above: Performed By: #### U A, UAMICAO, PREGU #### [place] [address] Urobilinogen (U) [Mass/Vol] Negative Normal Negative [facility] ([place]) Comment on above: Performed By: #### U A, UAMICAO, PREGU #### [place] [address] .Auto Diffon 08-09-2023 Basophil, Absolute 0.0 10 3/mcL Normal 0.0-0.2 [facility]) Comment on above: Performed By: #### P REGU, UAMICAO, UA #### [place] [id number] Basophils/100 WBC (Bld) 0.6 % Normal 0.0-2.5 [facility] ([place] Comment on above: Performed By: #### P REGU, UAMICAO, UA #### [place] [address] Eosinophil, Absolute 0.1 10 3/mcL Normal 0.0-0.4 [facility] [place] Comment on above: Performed By: #### P REGU, UAMICAO, UA #### [place] [address] Eosinophils/100 WBC (Bld) 1.5 % Normal 0.0-7.0 [facility] [place] Comment on above: Performed By: #### P REGU, UAMICAO, UA #### [address] [address] Lymphocyte, Absolute 2.3 10 3/mcL Normal 0.8-3.9 [facility] ([place] Comment on above: Performed By: #### P REGU, UAMICAO, UA #### [address] [address] Lymphocytes/100 WBC (Bld) 27.2 % Normal 10.0-50.0 [facility] [place] Comment on above: Performed By: #### P REGU, UAMICAO, UA #### [address] [address] Monocyte, Absolute 0.7 10 3/mcL Normal 0.2-1.0 [facility] ([place]) Comment on above: Performed By: #### P REGU, UAMICAO, UA #### [address] [address] Monocytes/100 WBC (Bld) 8.4 % Normal 1.7-13.0 [facility] ([place] Comment on above: Performed By: #### P REGU, UAMICAO, UA #### [address] [address] Neutrophils/100 WBC (Bld) 62.3 % Normal 37.0-80.0 [facility] ([place] Comment on above: Performed By: #### P REGU, UAMICAO, UA #### [address] [address] .GFRon 08-09-2023 GFR Non- 90 ml/min/1.73sqm Normal [facility] ([place] Comment on above: Result Comment: GFR Population [...] By: #### P REGU, UAMICAO, UA #### [address] [address] GFR 109 ml/min/1.73sqm Normal [facility] ([place] Comment on above: Result Comment: GFR Population [...] By: #### P REGU, UAMICAO, UA #### [address] [address] .NEUABSon 08-09-2023 Neutrophil, Absolute 5.3 10 3/mcL Normal 2.9-6.2 [facility] [place] Comment on above: Performed By: #### P REGU, UAMICAO, UA #### [address] [address] CBCon 08-09-2023 Erythrocyte distribution width (RBC) [Ratio] 13.5 % Normal 11.5-14.5 [facility] [place] Comment on above: Performed By: #### P REGU, UAMICAO, UA #### [address] [address] Hematocrit (Bld) [Volume fraction] 39.1 % Normal 37.0-47.0 [facility] [place] Comment on above: Performed By: #### Ly REGPILI ValadezMICGIULIANA, UA #### [address] [address] Hgb 13.4 G/dL Normal 12.0-16.0 [facility] [place] Comment on above: Performed By: #### P REGUPILIMICAO, UA #### [address] [address] MCH (RBC) [Entitic mass] 28.1 pg Normal 27.0-31.2 [facility] [place] Comment on above: Performed By: #### Ly REGPILI ValadezMICAO, UA #### [place] [address] MCHC 34.3 G/dL Normal 33.0-37.0 [facility] [place] Comment on above: Performed By: #### P REGUPILIMICAO, UA #### [address] [address] MCV (RBC) [Entitic vol] 82.0 fL Normal 80.0-94.0 [facility] [place] Comment on above: Performed By: #### Ly REGUPILIMICAO, UA #### [address] [address] Platelet 349 10 3/mcL Normal 130-400 [facility] ([place] Comment on above: Performed By: #### P REGUPILIMICAO, UA #### [address] [address] Platelet mean volume (Bld) [Entitic vol] 8.8 fL Normal 7.4-10.4 [facility] [place] Comment on above: Performed By: #### P REGUPILIMICAO, UA #### [address] [address] RBC 4.77 10 6/mcL Normal 4.20-5.40 [facility] [place] Comment on above: Performed By: #### P REGU, UAMICAO, UA #### [address] [address] WBC 8.6 10 3/mcL Normal 4.6-10.8 [facility] ([place] Comment on above: Performed By: #### P REGU, UAMICAO, UA #### [address] [address] CMPon 08-09-2023 Albumin Level 4.6 G/dL Normal 3.5-5.0 [facility] ([place] Comment on above: Performed By: #### P REGU, UAMICAO, UA #### [address] [address] Albumin/Globulin [Mass ratio] 1.4 {ratio} Normal 1.1-2.5 [facility] ([place] Comment on above: Performed By: #### P REGU, UAMICAO, UA #### [address] [address] ALP [Catalytic activity/Vol] 95 U/L Normal 40-135 [facility] ([place] Comment on above: Performed By: #### P REGU, UAMICAO, UA #### [address] [address] ALT [Catalytic activity/Vol] 21 U/L Normal 14-59 [facility] ([place] Comment on above: Performed By: #### P REGU, UAMICAO, UA #### [address] [address] AST [Catalytic activity/Vol] 18 U/L Normal 10-40 [facility] ([place] Comment on above: Performed By: #### P REGU UAMICAO, UA #### [address] [address] Bili Total 0.6 mg/dL Normal 0.2-1.0 [facility] ([place] Comment on above: Result Comment: Use of this assay is not recommended for patients undergoing treatment with eltrombopag due to the potential for falsely elevated results. Performed By: #### P REGU, UAMICAO, UA #### [address] [address] BUN/Creatinine Ratio 10 ratio Normal 7-27 [facility] ([place] Comment on above: Performed By: #### P REGU, UAMICAO, UA #### [address] [address] Calcium [Mass/Vol] 9.3 mg/dL Normal 8.4-10.2 [facility] ([place]) Comment on above: Performed By: #### P REGU, UAMICAO, UA #### [place] [address] Chloride [Moles/Vol] 101 mmol/L Normal 98-107 [facility] [place] Comment on above: Performed By: #### P REGU, UAMICAO, UA #### [place] [address] CO2 [Moles/Vol] 28 mmol/L Normal 22-29 [facility] [place] Comment on above: Performed By: #### P REGU, UAMICAO, UA #### [place] [id number] Creatinine [Mass/Vol] 0.82 mg/dL Normal 0.55-1.02 [facility] [place] Comment on above: Performed By: #### P REGU, UAMICAO, UA #### [place] [id number] Electrolyte Balance 16.0 mEq/L High 4.0-15.0 [facility] ([place]) Comment on above: Performed By: #### P REGU, UAMICAO, UA #### [place] [address] Globulin 3.3 G/dL Normal [facility] ([place] Comment on above: Performed By: #### P REGU, UAMICAO, UA #### [place] [phone] Glucose [Mass/Vol] 91 mg/dL Normal 70-105 [facility] ([place] Comment on above: Performed By: #### P REGU UAMICAO, UA #### [address] [address] Potassium [Moles/Vol] 3.9 mmol/L Normal 3.5-5.1 [facility] ([place] Comment on above: Performed By: #### P REGU, UAMICAO, UA #### [address] [address] Sodium [Moles/Vol] 145 mmol/L Normal 136-145 [facility] ([place] Comment on above: Performed By: #### P REGU UAMICAO, UA #### [address] [address] Total Protein 7.9 G/dL Normal 6.4-8.2 [facility] ([place] Comment on above: Performed By: #### P REGU UAMICAO, UA #### [address] [address] Urea nitrogen [Mass/Vol] 8 mg/dL Normal 7-18 [facility] ([place] Comment on above: Performed By: #### P REGU UAMICAO, UA #### [address] [address] FEon 08-09-2023 Iron [Mass/Vol] 72 ug/dL Normal 50-170 [facility] ([place] Comment on above: Performed By: #### P REGU, UAMICAO, UA #### [address] [address] Jessica 08-09-2023 Ferritin [Mass/Vol] 31.0 ng/mL Normal 8.0-252.0 [facility] ([place]) Comment on above: Performed By: #### P REGU, UAMICAO, UA #### [address] [address] FT4on 08-09-2023 Free T4 [Mass/Vol] 0.79 ng/dL Normal 0.76-1.46 [facility] ([place]) Comment on above: Performed By: #### P PILI CARRERAMICGIULIANA, UA #### [place] [phone] [place] [address] LABORATORYOrdered By: SYSTEM SYSTEM on 08-09-2023 Albumin [...] Cholesterol [Mass/Vol] 189 mg/dL Normal 0-200 [facility] ([place] Comment on above: Result Comment: Chol esterol Reference Interval: Less than 200 Desirable 200-239 Borderline high risk 240 and above High risk Performed By: #### P REGU UAMICAO, UA #### [address] [address] Cholesterol in HDL [Mass/Vol] 60 mg/dL Normal 40-60 [facility] [place] Comment on above: Performed By: #### P REGU UAMICAO, UA #### [address] [address] Cholesterol in LDL [Mass/Vol] 114 mg/dL Normal 0-130 [facility] ([place] Comment on above: Performed By: #### P REGU, UAMICAO, UA #### [address] [address] Triglyceride [Mass/Vol] 76 mg/dL Normal 0-150 [facility] ([place] Comment on above: Result Comment: Trig lyceride Reference Interval: Less than 150 Normal 150-199 Borderline high risk 200-499 High risk 500 or higher Very high risk Performed By: #### P REGU, UAMICAO, UA #### [facility] [address] [place], [place] [address] TSHon 08-09-2023 TSH Qn 1.06 m[IU]/L Normal 0.36-3.74 [facility] ([place]) Comment on above: Performed By: #### P REGU, UAMICAO, UA #### [facility] [address] [place], [place] [address] LABORATORYOrdered By: Bobbi Simon on 09-11-2022 HCG ( test) Ql Negative (09/11/22 11:44 PM) Invalid Interpretation Code AO Manual Urine SS test (u) int Not detected Invalid Interpretation Code AO Manual Urine SS No Panel Informationon 09-10 Culture Urine <10,000 cfu/ml. No Significant growth. Sensitivity not indicated. [facility] Work Phone: No Panel Informationon 09-08 [...] Control has been notified. Specimen sent to [facility] for confirmatory testing. [facility] Work Phone: Comment on above: Testing [...] Negative Shigella: Negative Campylobacter: Negative Yersinia: Negative [facility] Work Phone: Comment on above: Requests [...] percentageon 2021 Bilirubin [Mass/Vol] 0.50 mg/dL 0.20-1.00 [facility] Work Phone: Comment on above: For patients on eltr ombopag therapy, use of Dimension [place] TBIL is not recommended. Chloride [Moles/Vol] 108 mmol/L 98-107 [facility] Work Phone: Glucose [Mass/Vol] 94 mg/dL 74-106 [facility] Work Phone: Potassium [Moles/Vol] 3.8 mmol/L 3.5-5.1 [facility] Work Phone: Protein [Mass/Vol] 7.3 g/dL 6.4-8.2 [facility] Work Phone: Sodium [Moles/Vol] 138 mmol/L 136-145 [facility] Work Phone: WBC (Bld) [#/Vol] 6.2 10*3/uL 4.5-13.0 [facility] Work Phone: Blood erythrocytes count (nu mber/volume)on 04-13-2022 RBC (Bld) [#/Vol] 4.58 10*6/uL 4.1-4.8 [facility] Work Phone: Blood hemoglobin measurement (mass/volume)on 04-13-2022 Hemoglobin (Bld) [Mass/Vol] 11.7 g/dL 12.0-15.0 [facility] Work Phone: Blood platelet mean volumeon 04-13-2022 Platelet mean volume (Bld) [Entitic vol] 11.6 fL 6.2-12.0 [facility] Work Phone: Determination of erythrocyte mean corpuscular volume (MCV)on 04-13-2022 MCV (RBC) [Entitic vol] 79.5 fL 78-96 [facility] Work Phone: Hematocrit Auto (Bld) [Volum e fraction]on 04-13-2022 Hematocrit (Bld) [Volume fraction] 36.4 % 37-46 [facility] Work Phone: Iron measurement (mass/mass) on 04-13-2022 Iron (Unsp spec) [Mass/Mass] 38 ug/dL 50-170 [facility] Work Phone: Laboratory - Chemistry and C hemistry - challengeon 04-13-2022 ALP [Catalytic activity/Vol] 109 U/L 47-119 [facility] Work Phone: ALT [Catalytic activity/Vol] 21 U/L 13-56 [facility] Work Phone: CO2 [Moles/Vol] 25.0 mmol/L 21.0-32.0 [facility] Work Phone: Globulin (S) [Mass/Vol] 3.5 g/dL 2.2-4.2 [facility] Work Phone: Urea nitrogen/Creatinine [Mass ratio] 12.0 mg/mg 10-20 [facility] Work Phone: Laboratory - Hematology and Cell countson 04-13-2022 Erythrocyte distribution width (RBC) [Entitic vol] 40.6 fL 35.1-43.9 [facility] Work Phone: Erythrocyte distribution width (RBC) [Ratio] 14.0 % 11.6-14.6 [facility] Work Phone: MCH (RBC) [Entitic mass] 25.5 pg 25.0-35.0 [facility] Work Phone: MCHC Auto (RBC) [Mass/Vol]on 04-13-2022 MCHC (RBC) [Mass/Vol] 32.1 g/dL 32-36 [facility] Work Phone: No Panel Informationon 04-13 D-Dimer Quantitative (PE/DVT) < 0.27 FEU/ug/m 0.27-0.49 [facility] Work Phone: Comment on above: NORMAL D-Dimer level (<0.50) indicates no DVT or PE. Estimated GFR (MDRD) Amer 114 mL/min >60 [facility] Work Phone: Comment on above: GFR Calc Estimated GFR (MDRD) Non-Af Amer 94 mL/min >60 [facility] Work Phone: Comment on above: Non- GFR Calc Thyroid Stimulating Hormone (TSH) 1.82 uIU/mL 0.358-3.74 [facility] Work Phone: Platelets bldon 04-13-2022 Platelets (Bld) [#/Vol] 312 10*3/uL 150-450 [facility] Work Phone: Serum or plasma albumin markos urement (mass/volume)on 04-13-2022 Albumin [Mass/Vol] 3.8 g/dL 3.2-5.0 [facility] Work Phone: Serum or plasma albumin/glob ulin mass ratioon 04-13-2022 Albumin/Globulin [Mass ratio] 1.1 {ratio} 0.9-2.4 [facility] Work Phone: Serum or plasma calcium markos urement (mass/volume)on 04-13-2022 Calcium [Mass/Vol] 8.8 mg/dL 8.5-10.1 [facility] Work Phone: Serum or plasma creatinine m easurement (mass/volume)on 04-13-2022 Creatinine [Mass/Vol] 0.83 mg/dL 0.55-1.02 [facility] Work Phone: Comment on above: The validity of the calculated GFR & GFRAA in patients over 70 years has not been determined. Clinical correlation is essential. Serum or plasma ferritin sam surement (mass/volume)on 04-13-2022 Ferritin [Mass/Vol] 10 ng/mL 8-252 [facility] Work Phone: Serum or plasma urea nitroge n measurement (mass/volume)on 04-13-2022 Urea nitrogen [Mass/Vol] 10 mg/dL 7-18 [facility] Work Phone: Thin prep Papanicolaou smear with manual screeningon 04-13-2022 Thin prep Papanicolaou smear with manual screening 24 U/L 15-37 [facility] Work Phone: Thin prep Papanicolaou smear with manual screening 5 5-15 [facility] Work Phone: LABORATORYOrdered By: Nissa Tan on [...] Invalid Interpretation Code See NG Interp N AH Auto Viro/Sero SS Laboratory - Specimen inform ationOrdered By: Nissa Tan on 01-05-2022 Specimen source Nom (Unsp spec) Urine (01/05/22 2:31 PM) Invalid Interpretation Code AH Auto Viro/Sero SS Progress Noteon 11-30-2018 Security Escort Authentication Interface Message Text Elsa Louie is [...] COLONOSCOPY) performed by Khang Cortes MD at [facility] Known AllergiesMedicationsOutpatie nt Encounter Medications as of [...] less than 3 seconds. No pallor.Lab ResultsNone exzqajpAmoutfdrqg25 year old with abdominal pain, especially after [...] studyThank you for allowing our participation in [facility]. Please feel free tocall should you have questions or concerns.Kind Regards,Jil Underwood, [facility] MEDICAL CENTERPediatric Nurse PractitionerPediatric [phone] Index SpanishFiber in the Diet KEY POINTS [...] his bodywill usually adjust in time.Developed by [employer].Pediatric Advisor 2018.1 published by [employer].Last modified: 7041-25-40Padk reviewed: 6101-69-41Bpdm content is reviewed periodically and is subject to change as new healthinformation becomes available. The information is intended to inform and educateand is not a replacement for medical evaluation, advice, diagnosis or treatmentby a healthcare professional.ReferencesPedia tric Advisor 2018.1 Index 2018 [employer] and/or one of its subsidiariesIndex SpanishPediatric Advisor 2018.1 published by [employer].Last reviewed: 8527-43-99Zxhqx Marleneabetes: Healthy Snacks KEY POINTS Snacks can help [...] at the computer.For more information, contact The [place] Hciwmxzkogf543-314-8175onvl: //[email or web address].orgDeveloped by [employer].Pediatric Advisor 2018.1 published by [employer].Last modified: 1263-95-48Mndz reviewed: 7127-55-64Qajj content is reviewed periodically and is subject to change as new healthinformation becomes available. The information is intended to inform and educateand is not a replacement for medical evaluation, advice, diagnosis or treatmentby a healthcare professional.ReferencesPedia tric Advisor 2017.1 Index 2018 [employer] and/or one of its subsidiaries Normal [facility] Surgical Pathology Teston Surgical Pathology Test SEE BELOW Normal [facility] Comment on above: Result Comment: JESSICA Johnson [...] HENSON MD 09/13/2018 Performed By: #### S ####[facility] [address] [phone] NO CHARGEon 08-18-2018 INR Coag RelTime (Bld) [...] Dr. Rocio Cantor at 08/18/2018 09:07 Normal [facility] Progress Noteon 08-17-2018 Security Escort Authentication Interface Message Text Elsa Louie is here for new office visit for: Abdominal PainHistory of Present RjaymuzUPU60 year old with abdominal pain, nausea and [...] less than 3 seconds. No pallor.Lab ResultsNone zoppzdiOmrilogylo55 year old with abdominal pain, especially after [...] resultsThank you for allowing our participation in [facility]. Please feel free tocall should you have questions or concerns.Kind Regards,Jil Underwood, CNPPediatric Nurse PractitionerPediatric [phone] Normal [facility] US ABDOMEN COMPLETEon 2017 US ABDOMEN COMPLETE [...] Dr. Jam Stoner at 08/17/2018 13:40 Normal [facility] Calprotectinon 05-16-2018 Protein mass conc g/dL Normal <=50.0 (Normal) [facility] Comment on above: Order Comment: SPECI MEN COLLECTED 1050 05/12/18 Result Comment: Test Performed by:[place] [address] Performed By: #### C ALPR ####[facility] of [address] [phone] ABDOMEN 1 VIEWon 05-12-2018 ABDOMEN 1 VIEW [...] Dr. IAN THOMAS at 05/12/2018 11:48 Normal [facility] C-Reactive Proteinon 018 CRP mass conc mg/L Normal 0.0-1.0 [facility] Comment on above: Order Comment: SPECI MEN COLLECTED 1050 22/18 Result Comment: CRP determinations in neonates should be interpreted withcaution. CRP may be elevated in circumstances not associatedwith inflammation (e.g. difficult delivery, pneumothorax). Inpremature neonates CRP levels may not rise to abnormal levelseven if sepsis is present; some speculate that immature liverfunction decreases the ability to generate a CRP response. Performed By: #### C RP ####[address] [phone] Comp Metabolic Panelon 05-12 Albumin mass conc 4.4 g/dL Normal 3.2-4.5 [facility] Comment on above: Order Comment: SPECI MEN COLLECTED 104905/12/18 Performed By: #### C MP ####[address] [phone] ALP enzyme act/vol 107 U/L Normal 50-162 [facility] Comment on above: Order Comment: SPECI MEN COLLECTED 104905/12/18 Performed By: #### C MP ####[address] [phone] ALT enzyme act/vol 11 U/L Normal 0-31 [facility] Comment on above: Order Comment: SPECI MEN COLLECTED 104905/12/18 Performed By: #### C MP ####[address] [phone] AST enzyme act/vol 21 U/L Normal 0-31 [facility] Comment on above: Order Comment: SPECI MEN COLLECTED 104905/12/18 Performed By: #### C MP ####[address] [phone] Bili,Total 0.4 mg/dl Normal 0.0-1.0 [facility] Comment on above: Order Comment: SPECI MEN COLLECTED 104905/12/18 Result Comment: Nils ature : 1 Day 1.0-6.0 mg/dl 2 Day 6.0-8.0 mg/dl 3-5 Day 10.0-15.0 mg/dl Performed By: #### C MP ####[address] [phone] Calcium mass conc 9.4 mg/dL Normal 7.6-11.0 [facility] Comment on above: Order Comment: SPECI MEN COLLECTED 104905/12/18 Performed By: #### C MP ####[address] [phone] Chloride molar conc 107 mmol/L Normal 96-108 [facility] Comment on above: Order Comment: SPECI MEN COLLECTED 104905/12/18 Performed By: #### C MP ####[address] [phone] CO2 molar conc 23.7 mmol/L Normal 22.0-29.0 [facility] Comment on above: Order Comment: SPECI MEN COLLECTED 104905/12/18 Performed By: #### C MP ####[address] [phone] Creatinine mass conc 0.65 mg/dL Normal 0.50-0.80 [facility] Comment on above: Order Comment: SPECI MEN COLLECTED 104905/12/18 Result Comment: Nils ature 0.3-1.0 mg/dL Performed By: #### C MP ####[address] [phone] Glucose mass conc 95 mg/dL Normal 70-99 [facility] Comment on above: Order Comment: SPECI MEN COLLECTED 104905/12/18 Result Comment: Rashard rhodes for Diagnosis of Diabetes(Effective 04/26/11):Fasting specimen (no caloric intake for at least 8 hours). <100 mg/dl Normal 100-125 mg/dl Increased Risk for Diabetes >125 mg/dl Diagnostic for DiabetesRandom Glucose (any time of day without regard to last meal). >=200 mg/dl plus Classic Symptoms of Diabetes Performed By: #### C MP ####[address] [phone] Potassium molar conc 4.2 mmol/L Normal 3.3-5.1 [facility] Comment on above: Order Comment: SPECI MEN COLLECTED 104905/12/18 Performed By: #### C MP ####[address] [phone] Protein mass conc 7.0 g/dL Normal 5.9-8.4 [facility] Comment on above: Order Comment: SPECI MEN COLLECTED 104905/12/18 Performed By: #### C MP ####[address] [phone] Sodium molar conc 138 mmol/L Normal 133-145 [facility] Comment on above: Order Comment: SPECI MEN COLLECTED 104905/12/18 Performed By: #### C MP ####[address] [phone] Urea nitrogen mass conc 10 mg/dL Normal 4-19 [facility] Comment on above: Order Comment: SPECI MEN COLLECTED 104905/12/18 Performed By: #### C MP ####[address] [phone] Complete Blood Counton 05-12 Differential Complete Automated Normal [facility] Comment on above: Order Comment: SPECI MEN COLLECTED 104905/12/18 Performed By: #### C BC ####[address] [phone] % Neutrophils 47.4 % Normal 34.0-64.0 [facility] Comment on above: Order Comment: SPECI MEN COLLECTED 104905/12/18 Performed By: #### C BC ####[address] [phone] Basophils/100 WBC Auto (Bld) 0.90 % Normal 0.00-1.00 [facility] Comment on above: Order Comment: SPECI MEN COLLECTED 104905/12/18 Performed By: #### C BC ####[address] [phone] Eosinophils/100 WBC Auto (Bld) 1.80 % Normal 0.00-3.00 [facility] Comment on above: Order Comment: SPECI MEN COLLECTED 104905/12/18 Performed By: #### C BC ####[address] [phone] Erythrocyte distribution width Auto Ratio (RBC) 13.0 % Normal 0.0-14.4 [facility] Comment on above: Order Comment: SPECI MEN COLLECTED 104905/12/18 Performed By: #### C BC ####[address] [phone] Hematocrit Auto Volume Fraction (Bld) 34.1 % Low 37.0-46.0 [facility] Comment on above: Order Comment: SPECI MEN COLLECTED 104905/12/18 Performed By: #### C BC ####[address] [phone] Hemoglobin mass conc (Bld) 11.4 g/dL Low 12.0-15.0 [facility] Comment on above: Order Comment: SPECI MEN COLLECTED 104905/12/18 Performed By: #### C BC ####[address] [phone] Immature granulocytes/100 WBC (Bld) 0.40 % Normal [facility] Comment on above: Order Comment: SPECI MEN COLLECTED 104905/12/18 Result Comment: Flakita ture Granulocyte Percent includes promyelocytes, myelocytes,and metamyelocytes. IG% > 1.0 indicates a left shift ispresent. With automated differentials, bands are includedin the neutrophil count and not in the Immature GranulocytePercent. Performed By: #### C BC ####[address] [phone] Lymphocytes/100 WBC Auto (Bld) 40.6 % Normal 25.0-45.0 [facility] Comment on above: Order Comment: SPECI MEN COLLECTED 104905/12/18 Performed By: #### C BC ####[address] [phone] MCH Auto Entitic mass (RBC) 26.6 pg Normal 25.0-35.0 [facility] Comment on above: Order Comment: SPECI MEN COLLECTED 104905/12/18 Performed By: #### C BC ####[address] [phone] MCHC Auto mass conc (RBC) 33.4 % Normal 31.0-37.0 [facility] Comment on above: Order Comment: SPECI MEN COLLECTED 104905/12/18 Performed By: #### C BC ####[address] [phone] MCV Auto Entitic volume (RBC) 79.7 fL Normal 78.0-96.0 [facility] Comment on above: Order Comment: SPECI MEN COLLECTED 104905/12/18 Performed By: #### C BC ####[address] [phone] Monocytes/100 WBC Auto (Bld) 8.90 % High 3.00-6.00 [facility] Comment on above: Order Comment: SPECI MEN COLLECTED 104905/12/18 Performed By: #### C BC ####[address] [phone] Neutrophils Auto #/vol (Bld) 2.7 Normal [facility] Comment on above: Order Comment: SPECI MEN COLLECTED 104905/12/18 Performed By: #### C BC ####[address] [phone] Nucleated RBC/100 WBC Ratio (Bld) 0.0 % Normal -1.0-0.0 [facility] Comment on above: Order Comment: SPECI MEN COLLECTED 104905/12/18 Performed By: #### C BC ####[address] [phone] Platelet mean volume Auto Entitic volume (Bld) 10.1 fL Normal [facility] Comment on above: Order Comment: SPECI MEN COLLECTED 104905/12/18 Result Comment: MPV is plateletrange and agedependent Performed By: #### C BC ####[address] [phone] Platelets Auto #/vol (Bld) 277 10*3/uL Normal 150-450 [facility] Comment on above: Order Comment: SPECI MEN COLLECTED 104905/12/18 Performed By: #### C BC ####[address] [phone] RBC Auto #/vol (Bld) 4.28 10E12/L Normal 4.10-4.80 [facility] Comment on above: Order Comment: SPECI MEN COLLECTED 104905/12/18 Performed By: #### C BC ####[address] [phone] WBC Auto #/vol (Bld) 5.7 10*3/uL Normal 4.5-13.0 [facility] Comment on above: Order Comment: SPECI MEN COLLECTED 104905/12/18 Performed By: #### C BC ####[address] [phone] ESRon 05-12-2018 ESR Sed Rate 6 mm Normal [facility] Comment on above: Order Comment: SPECI MEN COLLECTED 104905/12/18 Performed By: #### S RATE ####[address] [phone] Interpretation ----- Normal [facility] Comment on above: Order Comment: SPECI MEN COLLECTED 104905/12/18 Result Comment: Male FemaleChild 0-13 Child 0-13Adult 0- 9 Adult 0-20 Performed By: #### S RATE ####[address] [phone] H. pylori Ag EIAon 8 H. pylori Ag EIA H. pylori Ag EIA: H. pylori Ag: NEGATIVE Source: STOOL Collected: 05/12/18 10:50 Site: Received : 05/12/18 23:01H. pylori Ag EIA FINAL 05/13/18 15:12 H. pylori Ag: NEGATIVE Immunochromatographic Assay Normal [facility] Comment on above: Performed By: #### H PYAG ####[address] [phone] Immunoglobulin Aon 8 Immunoglobulin A 124 mg/dL Normal 47-249 [facility] Comment on above: Order Comment: SPECI MEN COLLECTED 104905/12/18 Performed By: #### I GA ####[address] [phone] Occult Blood, Qualon 018 Occult Blood, Qual Negative Normal Negative [facility] Comment on above: Order Comment: SPECI MEN COLLECTED 104905/12/18 Performed By: #### O CBLD ####[address] [phone] [address] [id number] Normal [facility] Comment on above: Order Comment: SPECI MEN COLLECTED 104905/12/18 Performed By: #### O CBLD ####[facility] [place], [place] [phone] Progress Noteon 05-12-2018 Security Escort Authentication Interface Message Text Elsa Louie is here for new office visit for: Abdominal PainHistory of Present 67 year old with abdominal pain, nausea and [...] less than 3 seconds. No pallor.Lab ResultsNone 44 year old with abdominal pain, especially after [...] pharmacy.Thank you for allowing our participation in [facility]. Please feel free tocall should you have questions or concerns.Kind Regards,Jil Underwood, [facility] MEDICAL CENTERPediatric Nurse PractitionerPediatric [phone] Normal [facility] T4,Freeon 05-12-2018 T4 free mass conc 1.3 ng/dL Normal 0.8-1.5 [facility] Comment on above: Order Comment: SPECI MEN COLLECTED 1050 05/12/18 Result Comment: New Reference Ranges - effective 09/10/09. Performed By: #### T 4FR ####[address] [phone] TSHon 05-12-2018 Thyrotropin Qn 1.827 uIU/mL Normal 0.350-5.500 [facility] Comment on above: Order Comment: SPECI MEN COLLECTED 1050 05/12/18 Performed By: #### T SH ####[address] [phone] Transglutaminase IgAon 05-12 Transglutaminase IgA <20.00 Normal 0.00-20.00 [facility] Comment on above: Order Comment: SPECI MEN COLLECTED 1050 05/12/18 Result Comment: Nega tive: < 20 UnitsWeak Positive: 20-30 UnitsModerate to Strong Positive: > 30 Units Performed By: #### T MIGUEL ####[facility] [address] [place], [place] [phone] Vital Signs Date Time Vital Sign Value Performing Clinician Facility 09-03-2025 09:24-0400 Body height 154.94 cm Nicolette Esquivel FERRY PILOT-C Work Phone: [facility] 09-03-2025 09:24-0400 Body mass index (BMI) [Ratio] 35.4 kg/m2 Nicolette Esquivel FERRY PILOT-C Work Phone: [facility] 09-03-2025 09:24-0400 Body weight 85.02 kg Nicolette Esquivel FERRY PILOT-C Work Phone: [facility] 07-12-2025 08:53-0400 Body mass index (BMI) [Ratio] 33.32 kg/m2 Jasen Swank PHOTOGRAPHIC TECHNICIAN.CRYSTALIZER Work Phone: [facility] 07-12-2025 08:53-0400 Body temperature 97.59 [degF] Jasen Swank PHOTOGRAPHIC TECHNICIAN.CRYSTALIZER Work Phone: [facility] 07-12-2025 08:53-0400 Body weight 80 kg Jasen Swank PHOTOGRAPHIC TECHNICIAN.CRYSTALIZER Work Phone: [facility] 07-12-2025 08:53-0400 Diastolic blood pressure 81 mm[Hg] Jasen Swank PHOTOGRAPHIC TECHNICIAN.CRYSTALIZER Work Phone: [facility] 07-12-2025 08:53-0400 Heart rate 68 /min Jasen Swank PHOTOGRAPHIC TECHNICIAN.CRYSTALIZER Work Phone: [facility] 07-12-2025 08:53-0400 Respiratory rate 20 /min Jasen Swank PHOTOGRAPHIC TECHNICIAN.CRYSTALIZER Work Phone: [facility] 07-12-2025 08:53-0400 SaO2% (BldA) [Mass fraction] 100 % Jasen Swank PHOTOGRAPHIC TECHNICIAN.CRYSTALIZER Work Phone: [facility] 07-12-2025 08:53-0400 Systolic blood pressure 116 mm[Hg] Jasen Swank PHOTOGRAPHIC TECHNICIAN.CRYSTALIZER Work Phone: [facility] 05-07-2025 09:24-0400 Body mass index (BMI) [Ratio] 34.01 kg/m2 Nicolette Neumann PHOTOGRAPHIC TECHNICIAN.CNM Work Phone: [facility] 05-07-2025 09:24-0400 Body weight 81.65 kg Nicolette Neumann PHOTOGRAPHIC TECHNICIAN.CNM Work Phone: [facility] 05-07-2025 09:24-0400 Diastolic blood pressure 72 mm[Hg] Nicolette Neumann PHOTOGRAPHIC TECHNICIAN.CNM Work Phone: [facility] 05-07-2025 09:24-0400 Systolic blood pressure 110 mm[Hg] Nicolette Neumann PHOTOGRAPHIC TECHNICIAN.CNM Work Phone: [facility] 02-27-2025 13:55-0400 Body mass index (BMI) [Ratio] 32.88 kg/m2 Nicolette Neumann PHOTOGRAPHIC TECHNICIAN.CNM Work Phone: [facility] 02-27-2025 13:55-0400 Body weight 78.93 kg Nicolette Neumann PHOTOGRAPHIC TECHNICIAN.CNM Work Phone: [facility] 02-27-2025 13:55-0400 Diastolic blood pressure 66 mm[Hg] Nicolette Neumann PHOTOGRAPHIC TECHNICIAN.CNM Work Phone: [facility] 02-27-2025 13:55-0400 Systolic blood pressure 110 mm[Hg] Nicolette Neumann PHOTOGRAPHIC TECHNICIAN.CNM Work Phone: [facility] 11-22-2024 00:43-[address] ELIO WOOD MD [facility] 11-22-2024 00:43-0500 Diastolic Blood Pressure Non-Invasive 62 mm[Hg] DR ELIO WOOD MD [facility] 11-22-2024 00:43-0500 Heart rate 85 /min DR ELIO WOOD MD [facility] 11-22-2024 00:43-0500 Mean blood pressure 73 mm[Hg] DR ELIO WOOD MD [facility] 11-22-2024 00:43-0500 Reason For Taking VItal Signs DR ELIO WOOD MD [facility] 11-22-2024 00:43-0500 Respiratory rate 16 /min DR ELIO WOOD MD [facility] 11-22-2024 00:43-0500 Systolic Blood Pressure Non-Invasive 97 mm[Hg] DR ELIO WOOD MD [facility] 11-21-2024 23:08-[address] ELIO WOOD MD [facility] 11-21-2024 23:08-0500 Body height [address] ELIO WOOD MD [facility] 11-21-2024 23:08-0500 Body temperature 98.6 [degF] DR ELIO WOOD MD [facility] 11-21-2024 23:08-0500 Body weight 70.[address] ELIO WOOD MD [facility] 11-21-2024 23:08-0500 Diastolic Blood Pressure Non-Invasive 78 mm[Hg] DR ELIO WOOD MD [facility] 11-21-2024 23:08-0500 Heart rate 118 /min DR ELIO WOOD MD [facility] 11-21-2024 23:08-0500 Respiratory rate 18 /min DR ELIO WOOD MD [facility] 11-21-2024 23:08-0500 Systolic Blood Pressure Non-Invasive 111 mm[Hg] DR ELIO WOOD MD [facility] 11-08-2024 14:35-0500 Body height 154.9 cm Rhianna Gruberjunito DUMONT Work Phone: [facility] 11-08-2024 14:35-0500 Body mass index (BMI) [Ratio] 30.23 kg/m2 Rhianna Jameson RD Work Phone: [facility] 11-08-2024 14:35-0500 Body weight 72.[address] Work Phone: [facility] 09-06-2024 00:18-0400 Diastolic Blood Pressure Non-Invasive 70 mm[Hg] ROCIO GAIL DO [facility] 09-06-2024 00:18-0400 Heart rate 73 /min ROCIO GAIL DO [facility] 09-06-2024 00:18-0400 Respiratory rate 16 /min ROCIO GAIL DO [facility] 09-06-2024 00:18-0400 Systolic Blood Pressure Non-Invasive 106 mm[Hg] ROCIO GAIL DO [facility] 09-05-2024 23:01-0400 Diastolic Blood Pressure Non-Invasive 85 mm[Hg] ROCIO GAIL DO [facility] 09-05-2024 23:01-0400 Mean blood pressure 94 mm[Hg] ROCIO GAIL DO [facility] 09-05-2024 23:01-0400 Systolic Blood Pressure Non-Invasive 116 mm[Hg] ROCIO REYNOLDS DO [facility] 09-05-2024 22:54-0400 Body height 155 cm ROCIO REYNOLDS DO [facility] 09-05-2024 22:54-0400 Body temperature 99.14 [degF] ROCIO REYNOLDS DO [facility] 09-05-2024 22:54-0400 Body weight 63.6 kg ROCIO REYNOLDS DO [facility] 09-05-2024 22:54-0400 Diastolic Blood Pressure Non-Invasive 88 mm[Hg] ROCIO REYNOLDS DO [facility] 09-05-2024 22:54-0400 Heart rate 96 /min ROCIO REYNOLDS DO [facility] 09-05-2024 22:54-0400 Respiratory rate 16 /min ROCIO REYNOLDS DO [facility] 09-05-2024 22:54-0400 Systolic Blood Pressure Non-Invasive 135 mm[Hg] ROCIO REYNOLDS DO [facility] 06-11-2024 15:25-0400 Diastolic Blood Pressure Non-Invasive 74 mm[Hg] DR ELIO WOOD MD [facility] 06-11-2024 15:25-0400 Heart rate 70 /min DR ELIO WOOD MD [facility] 06-11-2024 15:25-0400 Respiratory rate 18 /min DR ELIO WOOD MD [facility] 06-11-2024 15:25-0400 Systolic Blood Pressure Non-Invasive 126 mm[Hg] DR ELIO WOOD MD [facility] 06-11-2024 12:43-0400 Body temperature 97.88 [degF] DR ELIO WOOD MD [facility] 06-11-2024 12:43-0400 Body weight 65.[address] ELIO WOOD MD [facility] 06-11-2024 12:43-0400 Diastolic Blood Pressure Non-Invasive 88 mm[Hg] DR ELIO WOOD MD [facility] 06-11-2024 12:43-0400 Heart rate 63 /min DR ELIO WOOD MD [facility] 06-11-2024 12:43-0400 Respiratory rate 18 /min DR ELIO WOOD MD [facility] 06-11-2024 12:43-0400 Systolic Blood Pressure Non-Invasive 130 mm[Hg] DR ELIO WOOD MD [facility] 05-08-2024 00:09-0400 Diastolic Blood Pressure Non-Invasive 59 mm[Hg] DR SADAF BATISTA DO [facility] 05-08-2024 00:09-0400 Heart rate 73 /min DR SADAF BATISTA DO [facility] 05-08-2024 00:09-0400 Mean blood pressure 75 mm[Hg] DR SADAF BATISTA DO [facility] 05-08-2024 00:09-0400 Respiratory rate 16 /min DR SADAF BATISTA DO [facility] 05-08-2024 00:09-0400 Systolic Blood Pressure Non-Invasive 111 mm[Hg] DR SADAF BATISTA DO [facility] 05-07-2024 23:06-0400 Body height [address] SADAF BATISTA DO [facility] 05-07-2024 23:06-0400 Body temperature 99.14 [degF] DR SADAF BATISTA DO [facility] 05-07-2024 23:06-0400 Body weight 65.[address] SADAF BATISTA DO [facility] 05-07-2024 23:06-0400 Diastolic Blood Pressure Non-Invasive 85 mm[Hg] DR SADAF BATISTA DO [facility] 05-07-2024 23:06-0400 Heart rate 91 /min DR SADAF BATISTA DO [facility] 05-07-2024 23:06-0400 Respiratory rate 18 /min DR SADAF BATISTA DO [facility] 05-07-2024 23:06-0400 Systolic Blood Pressure Non-Invasive 117 mm[Hg] DR SADAF BATISTA DO [facility] 10-24-2023 21:05-0500 Body temperature 98.06 [degF] NORTH MAYES MD [facility] 10-24-2023 21:05-0500 Diastolic Blood Pressure Non-Invasive 70 mm[Hg] NORTH MAYES MD [facility] 10-24-2023 21:05-0500 Heart rate 70 /min NORTH MAYES MD [facility] 10-24-2023 21:05-0500 Systolic Blood Pressure Non-Invasive 106 mm[Hg] NORTH MAYES MD [facility] 09-22-2023 23:06-0400 Blood Pressure Location DAIN BILLINGSLEY MD [facility] 09-22-2023 23:06-0400 Blood Pressure Method DAIN BILLINGSLEY MD [facility] 09-22-2023 23:06-0400 Diastolic Blood Pressure Non-Invasive 50 1 DAIN BILLINGSLEY MD [facility] 09-22-2023 23:06-0400 Heart rate 95 /min DAIN BILLINGSLEY MD [facility] 09-22-2023 23:06-0400 Reason For Taking VItal Signs DAIN BILLINGSLEY MD [facility] 09-22-2023 23:06-0400 Respiratory rate 16 /min DAIN BILLINGSLEY MD [facility] 09-22-2023 23:06-0400 Systolic Blood Pressure Non-Invasive 90 1 DAIN BILLINGSLEY MD [facility] 09-22-2023 22:22-0400 Blood Pressure Location DAIN BILLINGSLEY MD [facility] 09-22-2023 22:22-0400 Blood Pressure Method DAIN BILLINGSLEY MD [facility] 09-22-2023 22:22-0400 Diastolic Blood Pressure Non-Invasive 61 1 DAIN BILLINGSLEY MD [facility] 09-22-2023 22:22-0400 Heart rate 103 /min DAIN BILLINGSLEY MD [facility] 11-02-2023 22:22-0400 Reason For Taking VItal Signs DAIN BILLINGSLEY MD [facility] 09-22-2023 22:22-0400 Respiratory rate 18 /min DAIN BILLINGSLEY MD [facility] 09-22-2023 22:22-0400 Systolic Blood Pressure Non-Invasive 119 1 DAIN BILLINGSLEY MD [facility] 09-22-2023 21:37-0400 Blood Pressure Location DAIN BILLINGSLEY MD [facility] 09-22-2023 21:37-0400 Blood Pressure Method DAIN BILLINGSLEY MD [facility] 09-22-2023 21:37-0400 Diastolic Blood Pressure Non-Invasive 76 1 DAIN BILLINGSLEY MD [facility] 09-22-2023 21:37-0400 Heart rate 107 /min DAIN BILLINGSLEY MD [facility] 09-22-2023 21:37-0400 Reason For Taking VItal Signs DAIN BILLINGSLEY MD [facility] 09-22-2023 21:37-0400 Respiratory rate 20 /min DAIN BILLINGSLEY MD [facility] 09-22-2023 21:37-0400 Systolic Blood Pressure Non-Invasive 101 1 DAIN BILLINGSLEY MD [facility] 09-22-2023 21:08-0400 Body height 155 cm DAIN BILLINGSLEY MD [facility] 09-22-2023 21:08-0400 Body temperature 99.5 [degF] DAIN BILLINGSLEY MD [facility] 09-22-2023 21:08-0400 Body weight 66.7 kg DAIN BILLINGSLEY MD [facility] 09-11-2023 05:05-0400 Diastolic Blood Pressure Non-Invasive 82 1 YE ANDERSON MD [facility] 09-11-2023 05:05-0400 Heart rate 72 /min YE ANDERSON MD [facility] 09-11-2023 05:05-0400 Reason For Taking VItal Signs YE ANDERSON MD [facility] 09-11-2023 05:05-0400 Respiratory rate 16 /min YE ANDERSON MD [facility] 09-11-2023 05:05-0400 Systolic Blood Pressure Non-Invasive 106 1 YE ANDERSON MD [facility] 09-11-2023 03:18-0400 Blood Pressure Cuff Size YE ANDERSON MD [facility] 09-11-2023 03:18-0400 Blood Pressure Location YE ANDERSON MD [facility] 09-11-2023 03:18-0400 Blood Pressure Method YE ANDERSON MD [facility] 09-11-2023 03:18-0400 Body height 155 cm YE ANDERSON MD [facility] 09-11-2023 03:18-0400 Body temperature 97.7 [degF] YE ANDERSON MD [facility] 09-11-2023 03:18-0400 Body weight 63.6 kg YE ANDERSON MD [facility] 09-11-2023 03:18-0400 Diastolic Blood Pressure Non-Invasive 76 1 YE ANDERSON MD [facility] 09-11-2023 03:18-0400 Heart rate 88 /min YE ANDERSON MD [facility] 09-11-2023 03:18-0400 Reason For Taking VItal Signs YE ANDERSON MD [facility] 09-11-2023 03:18-0400 Respiratory rate 16 /min YE ANDERSON MD [facility] 09-11-2023 03:18-0400 Systolic Blood Pressure Non-Invasive 113 1 YE ANDERSON MD [facility] 09-12-2022 00:57-0400 Diastolic blood pressure 66 mm[Hg] WILFRED BEST DO [facility] 09-12-2022 00:57-0400 Heart rate 70 /min WILFRED BEST DO [facility] 09-12-2022 00:57-0400 Respiratory rate 18 /min WILFRED BEST DO [facility] 09-12-2022 00:57-0400 Systolic blood pressure 107 mm[Hg] WILFRED BEST DO [facility] 09-11-2022 23:33-0400 Body height 155 cm WILFRED BEST DO [facility] 09-11-2022 23:33-0400 Body temperature 99.14 [degF] WILFRED BEST DO [facility] 09-11-2022 23:33-0400 Body weight 59.1 kg WILFRED BEST DO [facility] 09-11-2022 23:33-0400 Diastolic blood pressure 69 mm[Hg] WILFRED BEST DO [facility] 09-11-2022 23:33-0400 Heart rate 77 /min WILFRED BEST DO [facility] 09-11-2022 23:33-0400 Height ZScore -1.27 WILFRED BEST DO [facility] Comment on above: Result Comment: ^~:!ZScore Source -[facility] 09-11-2022 23:33-0400 Percent Height for Age 10.15 1 WILFRED BEST DO [facility] Comment on above: Result Comment: ^~:!Percentile Source [facility] 09-11-2022 23:33-0400 Respiratory rate 20 /min WILFRED BEST DO [facility] 09-11-2022 23:33-0400 Systolic blood pressure 102 mm[Hg] WILFRED BEST DO [facility] 09-06-2022 16:57-0400 Body height 155 cm NORTH MAYES MD [facility] 09-06-2022 16:57-0400 Body temperature 98.6 [degF] NORTH MAYSE MD [facility] 09-06-2022 16:57-0400 Body weight 59 kg NORTH MAYES MD [facility] 09-06-2022 16:57-0400 Diastolic blood pressure 63 mm[Hg] NORTH MAYES MD [facility] 09-06-2022 16:57-0400 Heart rate 115 /min NORTH MAYES MD [facility] 09-06-2022 16:57-0400 Height ZScore -1.27 NORTH MAYES MD [facility] Comment on above: Result Comment: ^~:!ZScore Source -[facility] 09-06-2022 16:57-0400 Percent Height for Age 10.15 1 NORTH MAYES MD [facility] Comment on above: Result Comment: ^~:!Percentile Source -[facility] 09-06-2022 16:57-0400 Respiratory rate 18 /min NORTH MAYES MD [facility] 09-06-2022 16:57-0400 Systolic blood pressure 107 mm[Hg] NORTH MAYES MD [facility] Encounters Encounter Date Encounter Type Care Provider Facility Start: 09-19-2025 End: 09-19-2025 ambulatory Nicolette Esquivel NP Facility:[facility] Start: 09-19-2025 End: 09-19-2025 ambulatory Nicolette Esquivel NP Facility:[facility] Start: 09-09-2025 End: 09-09-2025 ambulatory SAMM LARSON Facility:[facility] Start: 09-03-2025 End: 09-03-[address] Dalila Dale MD -[facility] Work Phone: Start: 09-03-2025 End: 09-03-2025 ambulatory Nicolette Esquivel FERRY PILOT-C Work Phone: -[facility] Start: 08-28-2025 End: 08-28-2025 ambulatory DANIELA FENTON Facility:[facility] Start: 07-12-2025 Unlisted evaluation and management service Jasen Gabriel APRN.CRYSTALIZER Work Phone: [facility] Work Phone: Start: 07-12-2025 End: 07-12-2025 Patient encounter procedure Jasen Gabriel APRN.CRYSTALIZER Work Phone: [facility] Comment on above: Superficial foreign body of left foot, initial encounter (Primary Dx) Start: 07-12-2025 End: 07-12-2025 ambulatory DANIELA FENTON Facility:[facility] Start: 05-28-2025 End: 05-28-2025 Telemedicine consultation with patient Edie Aleman CRYSTALIZER Work Phone: Neurology Start: 05-28-2025 End: 05-28-2025 ambulatory Edie Aleman PHOTOGRAPHIC TECHNICIAN.CRYSTALIZER Work Phone: Neurology Comment on above: Chronic daily headac he (Primary Dx); Migraine without aura and without status migrainosus, not intractable; Postural orthostatic tachycardia syndrome (POTS) Start: 05-09-2025 End: 05-09-2025 ambulatory Kristy Eldridge RN NURSE FILTERS ASSEMBLER Start: 05-09-2025 End: 05-09-2025 Patient encounter procedure Kristy Eldridge RN NURSE FILTERS ASSEMBLER Comment on above: Referral Request Start: 05-07-2025 End: 05-07-2025 ambulatory DANIELA FENTON Facility:[facility] Start: 05-07-2025 End: 05-07-2025 Patient [...] department patient visit DR SADAF BATISTA DO [facility] Start: 05-02-2025 End: 05-02-2025 ambulatory DANIELA FENTON PHOTOGRAPHIC TECHNICIAN - CRYSTALIZER Facility:[facility] Start: 05-02-2025 End: 05-02-2025 Patient encounter procedure DANIELA FENTON PHOTOGRAPHIC TECHNICIAN - CRYSTALIZER [facility] Start: 03-08-2025 End: 03-08-2025 ambulatory NICOLETTE NEUMANN Facility:[facility] Start: 03-08-2025 End: 05-08-2025 Follow-up encounter Perri Bridges MD Work Phone: OB/Gynecology Start: 03-04-2025 End: 03-04-2025 ambulatory NICOLETTE NEUMANN Facility:[facility] Start: 02-27-2025 End: 02-27-2025 ambulatory NICOLETTE WESTBOROUGH Facility:[facility] Start: 02-27-2025 End: 02-27-2025 Patient encounter procedure Nicolette Thine MACE.CNM Work Phone: OB/Gynecology Comment on above: Abnormal uterine ble eding (AUB) (Primary Dx); Pelvic pain in female; Screening for cervical cancer; Screening for human papillomavirus (HPV) Start: 11-21-2024 End: 11-22-2024 Emergency department patient visit DR ELIO WOOD MD [facility] Start: 11-19-2024 End: 11-19-2024 ambulatory ZOLTAN BETANCOURT Facility:[facility] Start: 11-19-2024 End: 11-19-2024 Subsequent hospital visit by physician [facility] [address] Work Phone: Radiology Comment on above: Bloating [R14.0] Start: 11-08-2024 End: 11-08-2024 Patient encounter procedure Rhianna Jameson RD Work Phone: Nutrition Therapy Comment on above: Bloating Start: 11-08-2024 End: 11-08-2024 Telemedicine consultation with patient Rhianna Jameson RD Work Phone: Nutrition Therapy Start: 11-08-2024 End: 11-08-2024 ambulatory RHIANNA JAMESON Facility:[facility] Start: 11-05-2024 End: 11-05-2024 ambulatory ZOLTAN A SERAFIN Facility:[facility] Start: 11-05-2024 End: 11-05-2024 ambulatory Zoltan Betancourt MD Work Phone: Gastroenterology Comment on above: Bloating (Primary Dx ) Start: 11-05-2024 End: 11-05-2024 Telemedicine consultation with patient Zoltan Betancourt MD Work Phone: Gastroenterology Start: 09-05-2024 End: 09-06-2024 Emergency department patient visit ROCIO REYNOLDS DO [facility] Start: 07-27-2024 End: 07-27-2024 ambulatory NICOLETTE ESQUIVEL PHOTOGRAPHIC TECHNICIAN-CRYSTALIZER Facility:[facility] Start: 07-27-2024 End: 07-27-[address] YOSVANY BERNSTEIN MD [facility] Start: 07-18-[address] YOSVANY BERNSTEIN MD Fa cility:B Start: 06-11-2024 End: 06-11-2024 Emergency department patient visit DR ELIO WOOD MD [facility] Start: 05-07-2024 End: 05-08-2024 Emergency department patient visit DR SADAF BATISTA DO [facility] Start: 03-15-2024 End: 03-15-2024 ambulatory NICOLETTE ESQUIVEL PHOTOGRAPHIC TECHNICIAN-CRYSTALIZER Facility:B Start: 03-15-2024 End: 03-15-2024 Patient encounter procedure NICOLETTE ESQUIVEL PHOTOGRAPHIC TECHNICIAN-CRYSTALIZER [facility] Start: 03-15-2024 End: 03-15-2024 ambulatory NICOLETTE ESQUIVEL PHOTOGRAPHIC TECHNICIAN-CRYSTALIZER Facility:B Start: 03-15-2024 End: 03-15-2024 Patient encounter procedure NICOLETTE ESQUIVEL PHOTOGRAPHIC TECHNICIAN-CRYSTALIZER [facility] Start: 11-07-2023 End: 11-07-[address] YOSVANY BERNSTEIN MD Facility:B Start: 10-25-2023 End: 10-25-2023 ambulatory NORTH MAYES MD Facility:B Start: 10-25-2023 End: 10-25-2023 Patient encounter procedure NORTH MAYES MD [facility] Start: 10-24-2023 End: 10-24-2023 Emergency department patient visit NORTH MAYES MD [facility] Start: 10-03-2023 End: 10-03-2023 ambulatory PROSPER MURILLO PHOTOGRAPHIC TECHNICIAN-CRYSTALIZER Facility:B Start: 10-03-2023 End: 10-03-2023 Patient encounter procedure PROSPER Elizabeth CHIDI PHOTOGRAPHIC TECHNICIAN-CRYSTALIZER [facility] Start: 09-28-2023 ambulatory SUMA MAST PHOTOGRAPHIC TECHNICIAN-CRYSTALIZER Fa cility:B Start: 09-26-2023 End: 09-26-2023 ambulatory PROSPER UMRILLO PHOTOGRAPHIC TECHNICIAN-CRYSTALIZER Facility:B Start: 09-26-2023 End: 09-26-2023 Patient encounter procedure PROSPER Johnson MURILLO PHOTOGRAPHIC TECHNICIAN-CRYSTALIZER [facility] Start: 09-22-2023 End: 09-22-2023 Emergency department patient visit DAIN BILLINGSLEY MD [facility] Start: 09-11-2023 End: 09-11-2023 Emergency department patient visit YE ANDERSON MD [facility] Start: 08-09-2023 End: 2023 ambulatory NICOLETTE ESQUIVEL PHOTOGRAPHIC TECHNICIAN-CRYSTALIZER Facility:B Start: 08-09-2023 End: 2023 Outreach Lab NICOLETTE ESQUIVEL PHOTOGRAPHIC TECHNICIAN-CRYSTALIZER [facility] Start: 09-11-2022 End: 09-12-2022 Emergency department patient visit WILFRED Rodrigez ESTEPHANIA WHITLOCK [facility] Start: 09-10-2022 End: 09-14-2022 Outreach Lab IMELDA CHAMBERS MD [facility] Start: 09-07-2022 End: 09-11-2022 Outreach Lab MOR GLYNN PHOTOGRAPHIC TECHNICIAN-CRYSTALIZER [facility] Start: 09-06-2022 End: 09-06-2022 Emergency department patient visit NORTH MAYES MD [facility] Start: 05-17-2022 Non-patient / Non-visit FERRY PILOT-C Florina Esquivel [facility]ERRY P[facility]OT Work Phone: [facility] Start: 05-17-2022 End: 05-17-2022 Patient encounter procedure FERRY PILOT-C Nicolette Esquivel FERRY PILOT Work Phone: [facility] Start: 04-20-2022 End: 04-20-2022 Patient encounter procedure NICOLETTE ESQUIVEL PHOTOGRAPHIC TECHNICIAN-CRYSTALIZER [facility] Start: 04-16-2022 End: 04-16-2022 Patient encounter procedure [facility] Start: 04-13-2022 End: 04-13-2022 Patient encounter procedure [facility] Start: 01-05-2022 End: 01-09-2022 Outreach Lab JOE RAYO MD [facility] Start: 11-30-2018 End: 12-01-2018 Patient encounter procedure JIL [facility] Start: 09-11-2018 End: 09-11-2018 Patient encounter procedure KHANG CORTES [facility] Start: 08-17-2018 End: 08-17-2018 Patient encounter procedure SANDHYA SNYDER [facility] Start: 08-17-2018 End: 08-18-2018 Patient encounter procedure Rocio Cantor [facility] Start: 08-17-2018 End: 08-17-2018 Patient encounter procedure JIL [facility] Start: 05-12-2018 End: 05-13-2018 Patient encounter procedure [facility] Start: 05-12-2018 End: 05-12-2018 Patient encounter procedure [facility] Procedures Date Procedure Procedure Detail Performing Clinician Start: 02-27-2025 BACTERIAL VAGINOSIS NAAT Nicolette Neumann APRN.CNApril Work Phone: Start: 02-27-2025 Iadna chlamydia trachomatis amplified probe tq Nicolette Neumann APRN.CNApril Work Phone: Start: 11-19-2024 Us abdominal real ti me w/image limited Zoltan Betancourt MD Work Phone: Start: 04-29-2022 None (qualifier value) NORTH MAYES MD Plan of Treatment Date Care Activity Detail Author Start: 02-28-2028 Screening for malign ant neoplasm of cervix Cervical Cancer Screening [facility] Start: 07-09-2026 Urine microalbumin profile DTaP,Tdap,Td Vaccine (7 - Td or Tdap) [facility] Start: 02-27-2026 GC (Gonorrhea) Scree kaylee (18-24) GC (Gonorrhea) Screening () [facility] Start: 02-27-2026 Screening for Chlamy warren trachomatis Chlamydia Screening () [facility] Start: 09-23-2025 End: 09-23-2025 Patient encounter procedure 09/23/2025 9:30 AM EST Office Visit OB/Gynecology [address] [place] [address] Nicolette Neumann APRN.CNM [address] 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[employer] [address] [place] [address] Ovarian cyst, left [N83.202] OB/Gynecology Comment on above: Ovarian cyst, left [ N83.202] Start: 09-03-2025 Chlamydia deoxyribonucleic acid detection [facility] Start: 09-03-2025 Hepatitis C antibody measurement [facility] Start: 09-03-2025 Rubella IgG measurement [facility] Start: 09-03-2025 Serologic test for syphilis [facility] Start: 09-03-2025 [facility] Start: 07-22-2025 Influenza vaccination [facility] Start: 06-12-2025 End: 06-12-2025 Patient encounter procedure 06/12/2025 7:30 AM EDT Office Visit Neurology [address] [place] [address] Adelina Villa PA-C [address] [place] [address] Migraines Neurology Comment on above: Migraines Start: 03-19-2025 End: 03-19-2026 US Pelvis PELVIC US [facility] Anc Imaging Routine Ovarian cyst, left Expected: 03/19/2025, Expires: 03/19/2026 [facility] Work Phone: Comment on above: Expected: 03/19/2025 , Expires: 03/19/2026 Start: 03-08-2025 End: 03-08-2025 ambulatory 03/08/2025 3:30 PM EDT Procedure OB/Gynecology [address] [place] [address] 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, 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[employer] [address] [place] [address] Abnormal uterine bleeding (AUB) [N93.9] OB/Gynecology Comment on above: Abnormal uterine ble eding (AUB) [N93.9] Start: 02-27-2025 End: 05-29-2025 17-Hydroxyprogesterone [Mass/volume] in Serum or Plasma HYDROXYPROGESTERONE-17 Lab Routine Abnormal uterine bleeding (AUB) Pelvic pain in female Expected: 02/27/2025, Expires: 05/29/2025 [facility] Comment on above: Expected: 02/27/2025 , Expires: 05/29/2025 Start: 02-27-2025 End: 05-29-2025 TESTOSTERONE, FREE AND TOTAL, BY EQUILIBRIUM ULTRAFILTRATION MASS SPECTROMETRY TESTOSTERONE, FREE AND TOTAL, BY EQUILIBRIUM ULTRAFILTRATION MASS SPECTROMETRY Lab Routine Abnormal uterine bleeding (AUB) Pelvic pain in female Expected: 02/27/2025, Expires: 05/29/2025 [facility] Comment on above: Expected: 02/27/2025 , Expires: 05/29/2025 Start: 02-27-2025 End: 02-27-2026 US Pelvis PELVIC US [facility] Anc Imaging Routine Abnormal uterine bleeding (AUB) Pelvic pain in female Expected: 02/27/2025, Expires: 02/27/2026 [facility] Work Phone: Comment on above: Expected: 02/27/2025 , Expires: 02/27/2026 Start: 11-08-2024 End: 11-08-2024 Patient encounter procedure 11/08/2024 2:45 PM EST [facility] [address] [place] [address] Rhianna Jameson, [facility] [address] [place] [address] GI Issues Nutrition Therapy Comment on above: GI Issues Start: 11-05-2024 End: 02-04-2025 25-hydroxyvitamin D3 [Mass/volume] in Serum or Plasma [facility] Comment on above: Expected: 11/05/2024 , Expires: 02/04/2025 Start: 11-05-2024 End: 02-04-2025 C reactive protein [Mass/volume] in Serum or Plasma [facility] Comment on above: Expected: 11/05/2024 , Expires: 02/04/2025 Start: 11-05-2024 End: 02-04-2025 CBC panel - Blood by Automated count [facility] Comment on above: Expected: 11/05/2024 , Expires: 02/04/2025 Start: 11-05-2024 End: 02-04-2025 Comprehensive metabolic 2000 panel - Serum or Plasma [facility] Comment on above: Expected: 11/05/2024 , Expires: 02/04/2025 Start: 11-05-2024 End: 02-04-2025 Thyrotropin [Units/volume] in Serum or Plasma [facility] Comment on above: Expected: 11/05/2024 , Expires: 02/04/2025 Start: 2024 Screening for malign ant neoplasm of cervix Cervical Cancer Screening [facility] Start: 07-22-2024 Covid-19 Vaccine ( season) Covid-19 Vaccine () [facility] Start: 07-22-2024 Influenza vaccination Influenza Vacc ine (#1) [facility] Start: 2021 Anxiety Screening Anxiety Screening [facility] Start: 2021 Depression Screening Depression Scre ening [facility] Start: 2021 GC (Gonorrhea) Scree kaylee () GC (Gonorrhea) Screening () [facility] Start: 2021 Hepatitis C screening Hepatitis C Sc reening [facility] Start: 2021 HIV screening HIV Screening [facility] Start: 2021 Screening for Chlamy warren trachomatis Chlamydia Screening () [facility] Start: 2019 Meningococcal B Vacc ine (1 of 2 - Standard) Meningococcal B Vaccine (1 of 2 - Standard) [facility] Start: 2019 Meningococcal B Vacc ine: Consider Based On Risk (1 of 2 - Patient Seeks Protection) Meningococcal B Vaccine: Consider Based On Risk (1 of 2 - Patient Seeks Protection) [facility] Start: 2018 HPV Vaccine (1 - 3-d ose series) HPV Vaccine (1 - 3-dose series) [facility] Start: 2017 Peds To Adult Transi tion Annual Assessment Peds To Adult Transition Annual Assessment [facility] Start: 2015 Peds To Adult Transi tion Initial Discussion Peds To Adult Transition Initial Discussion [facility] 17-Hydroxyprogestero ne [Mass/volume] in Serum or Plasma HYDROXYPROGESTERONE-17 Lab Routine Abnormal uterine bleeding (AUB) Pelvic pain in female 03/04/2025 9:46 AM EDT [facility] CBC W Auto Different ial panel - Blood [facility] Hemoglobin A1c/Hemoglobin.total in Blood [facility] PAP TEST PAP TEST Lab Rou fatmata Screening for cervical cancer Screening for human papillomavirus (HPV) 02/27/2025 4:16 PM EDT [facility] TESTOSTERONE, FREE A ND TOTAL, BY EQUILIBRIUM ULTRAFILTRATION MASS SPECTROMETRY TESTOSTERONE, FREE AND TOTAL, BY EQUILIBRIUM ULTRAFILTRATION MASS SPECTROMETRY Lab Routine Abnormal uterine bleeding (AUB) Pelvic pain in female 03/04/2025 9:46 AM EDT [facility] End: 12-05-2025 US Abdomen RUQ US ABD RIGHT UPPER QUADRANT Radiology Routine Bloating 1 Occurrences starting 11/05/2024 until 12/05/2025 [facility] Work Phone: Comment on above: 1 Occurrences starti ng 11/05/2024 until 12/05/2025 Immunizations Immunization Date Immunization Notes Care Provider Tremaine georges 07-09-2016 meningococcal polysaccharide (groups A, C, Y and W-135) diphtheria toxoid conjugate vaccine (MCV4P) NICOLETTE ESQUIVEL APRN-CRYSTALIZER [facility] 07-09-2016 tetanus toxoid, redu sam diphtheria toxoid, and acellular pertussis vaccine, adsorbed NICOLETTE ESQUIVEL APRN-CRYSTALIZER [facility] 06-12-2008 diphtheria, tetanus toxoids and acellular pertussis vaccine NICOLETTE JUAREZMER PHOTOGRAPHIC TECHNICIAN-CRYSTALIZER [facility] 06-12-2008 measles, mumps and rubella virus vaccine Jasen Young PHOTOGRAPHIC TECHNICIAN.CRYSTALIZER Work Phone: [facility] 06-12-2008 measles/mumps/rubell a virus vaccine NICOLETTE ALVIN PHOTOGRAPHIC TECHNICIAN-CRYSTALIZER [facility] 06-12-2008 poliovirus vaccine, inactivated NICOLETTE ALVIN PHOTOGRAPHIC TECHNICIAN-CRYSTALIZER [facility] 06-12-2008 varicella virus vaccine ETHAN RIVAS ALVIN PHOTOGRAPHIC TECHNICIAN-CRYSTALIZER [facility] 11-23-2006 diphtheria, tetanus toxoids and acellular pertussis vaccine NICOLETTE ALVIN PHOTOGRAPHIC TECHNICIAN-CRYSTALIZER [facility] 11-23-2006 haemophilus influenz ae type b vaccine, PRP-T conjugate NICOLETTE ALVIN PHOTOGRAPHIC TECHNICIAN-CRYSTALIZER [facility] 03-05-2005 DTaP-hepatitis B and poliovirus vaccine NICOLETTE ALVIN PHOTOGRAPHIC TECHNICIAN-CRYSTALIZER [facility] 03-05-2005 haemophilus influenz ae type b conjugate and Hepatitis B vaccine NICOLETTE ALVIN PHOTOGRAPHIC TECHNICIAN-CRYSTALIZER [facility] 03-05-2005 measles, mumps and rubella virus vaccine Jasen Young PHOTOGRAPHIC TECHNICIAN.CRYSTALIZER Work Phone: [facility] 03-05-2005 measles/mumps/rubell a virus vaccine NICOLETTE ALVIN PHOTOGRAPHIC TECHNICIAN-CRYSTALIZER [facility] 03-05-2005 varicella virus vaccine ETHAN ICA ALVIN PHOTOGRAPHIC TECHNICIAN-[facility] 04-27-2004 DTaP-hepatitis B and poliovirus vaccine NICOLETTE ESQUIVEL PHOTOGRAPHIC TECHNICIAN-[facility] 04-27-2004 haemophilus influenz ae type b conjugate and Hepatitis B vaccine NICOLETTE ESQUIVEL PHOTOGRAPHIC TECHNICIAN-[facility] 04-27-2004 pneumococcal conjuga te vaccine, 7 valent NICOLETTE ESQUIVEL PHOTOGRAPHIC TECHNICIAN-[facility] 02-24-2004 DTaP-hepatitis B and poliovirus vaccine NICOLETTE ESQUIVEL PHOTOGRAPHIC TECHNICIAN-CRYSTALIZER [facility] 02-24-2004 haemophilus influenz ae type b conjugate and Hepatitis B vaccine NICOLETTE ESQUIVEL PHOTOGRAPHIC TECHNICIAN-[facility] 02-24-2004 pneumococcal conjuga te vaccine, 7 valent NICOLETTE JUAERZMER PHOTOGRAPHIC TECHNICIAN-[facility] Payers Date Payer Category Payer Self-pay [id number] 2025 Private Health Insurance [id number] 2023 Private Health Insurance [id number] 2022 Private Health Insurance [id number] 2022 Private Health Insurance [id number]. [id number] 2003 Unknown [id number] 2.16.840.1.686552.3.579.2.627 2003 Unknown [id number] 2.16.840.1.233342.3.579.2.627 2003 Unknown [id number] 2.16.840.1.219254.3.579.2.627 2003 Unknown [id number] 2.16.840.1.575810.3.579.2.62 2003 Unknown [id number] 2.16.840.1.914755.3.579.2.627 2003 Unknown [id number] 2.16.840.1.617518.3.579.2.627 2003 Unknown [id number] 2.16.840.1.953577.3.579.2.62 2003 Unknown [id number] 2.16.840.1.722632.3.579.2. 2003 Unknown [id number] 2.16.840.1.064877.3.579.2. 2003 Unknown [id number] 2.16.840.1.877906.3.579.2. 2003 Unknown [id number] 2.16.840.1.199826.3.579.2. 2003 Unknown [id number] 2.16.840.1.044596.3.579.2.62 2003 Unknown [id number] 2.16.840.1.726419.3.579.2. 2003 Unknown [id number] 2.16.840.1.759804.3.579.2. 2003 Unknown [id number] 2.16.840.1.804602.3.579.2. 2003 Unknown [id number] 2.16.840.1.643567.3.579.2. 2003 Unknown [id number] 2.16.840.1.319861.3.579.2. 2003 Unknown [id number] 2.16.840.1.912099.3.579.2.7 2003 Unknown [id number] 2.16840.1.747238.3.579.2.627 1981 Unknown [id number] 2.16.840.1.963745.3.579.2.479 1981 Unknown [id number] 2.16840.1.104764.3.579.2.479 1981 Unknown [id number] 2.16840.1.289793.3.579.2.479 1981 Unknown [id number] 2.840.1.335609.3.579.2.479 1981 Unknown [id number] 2.16840.1.970595.3.579.2.479 1981 Unknown [id number] 2.840.1.881386.3.579.2.479 1981 Unknown [id number] 2.840.1.054274.3.579.2.479 1981 Unknown [id number] 2.840.1.271007.3.579.2.479 1981 Unknown [id number] 2.16840.1.411165.3.579.2.479 1981 Unknown [id number] 2.840.1.038786.3.579.2.479 Unknown SELF PAY INSURANCE [id number] Unknown [id number] 2.840.1.449178.3.579.2.462 Unknown [id number] 2.840.1.236090.3.579.2.462 Unknown [id number] 2.840.1.331268.3.579.2.462 Social History Date Type Detail Facility Start: 12-10-2020 End: 09-03-2025 Never smoked tobacco (finding) [facility] Sex Assigned At [facility] Start: 12-25-2018 Tobacco smoking stat us VAIS Unknown if ever smoked [facility] Work Phone: Start: 2003 Sex Assigned At Female W [facility] Start: 11-05-2024 End: 07-12-2025 History of Social function [facility] Start: 11-05-2024 End: 07-12-2025 Area Deprivation Index [facility] Start: 10-03-2024 National Score (1-10 0), lower number is lower risk 48 [facility] Start: 2003 Sex assigned at Not on file C [facility] Start: 10-14-2014 Sex Female (finding) [facility] Start: 02-27-2025 Tobacco use and exposure Smoke less tobacco non-user [facility] Start: 02-27-2025 End: 07-12-2025 Alcoholic beverage intake Lifetime non-drinker (finding) [facility] Functional Status Date Assessment Result Facility 11-22-2024 Functional Status Independent [facility] 11-21-2024 Functional Status Standard Safet y ID band on, Allergy Band on, Call device within reach, Bed in low position, Wheels locked, Upper/Half-Length side-rails up, Bedside Cart Locked, Visitor at bedside [facility] 09-06-2024 Functional Status Independent [facility] 09-05-2024 Functional Status Independent [facility] 06-11-2024 Functional Status Standard Safet y ID band on, Call device within reach, Bed in low position, Wheels locked, Upper/Half-Length side-rails up, Bedside Cart Locked, Safety level maintained [facility] 05-08-2024 Functional Status Independent [facility] 05-07-2024 Functional Status Independent [facility] 10-24-2023 Functional Status Assistive Device None A [facility] 09-22-2023 Functional Status Standard Safet y ID band on, Call device within reach, Bed in low position, Wheels locked [facility] 09-11-2023 Functional Status Activity Kemal tance Independent [facility] 09-11-2023 Functional Status Awake, Resting [facility] 09-12-2022 Functional Status Up ad leonel [facility] 09-06-2022 Functional Status Up ad leonel [facility] 09-06-2022 Functional Status [facility] Mental Status Date Assessment Result Facility 11-22-2024 Mental Status Orientation Oriented x 4 [facility] 11-21-2024 Mental Status [facility] 09-06-2024 Mental Status Orientation Oriented x 4 [facility] 09-05-2024 Mental Status [facility] 06-11-2024 Mental Status Orientation Oriented x 4 [facility] 05-08-2024 Mental Status Orientation Oriented x 4 [facility] 05-07-2024 Mental Status [facility] 10-24-2023 Mental Status Oriented x 4 [facility] 09-22-2023 Mental Status Orientation Oriented x 4 [facility] 09-11-2023 Mental Status Orientation Oriented x 4 [facility] 09-11-2023 Mental Status [facility] 09-12-2022 Mental Status Orientation Oriented x 4 [facility] 09-11-2022 Mental Status [facility] 09-06-2022 Mental Status Orientation Oriented x 4 [facility] 09-06-2022 Mental Status [facility] Clinical Notes 09-06-2022 to 09-09-2025 Jasen Gabriel APRN.CRYSTALIZER - 07/12/2025 9:22 AM EDTPatient Edie Rasheed APRN.CRYSTALIZER - 05/28/2025 1:25 PM EDTTelephone Encounter - Eldridge Kristy, RN - 05/09/2025 1:43 PM EDT Note Date & Type Note Facility 09-09-2025 Note HNO ID: [id number] Author: SAMM LARSON MD Service: ? Author [...] suggestive Disposition The patient was discharged. Procedures [facility] 08-28-2025 Note HNO ID: [id number] Author: MCKENZIE CONSTANTINO APRN.PANCHO Service: ? Author Type: Shuttleless Loom Weaver Type: Progress Notes Filed: 08/28/2025 11:57 Note Text: Tyre Retreader offered: Patient declines. Elsa Louie is a [...] Living0 SAB0 IAB0 Ectopic0 Multiple0 Live Births0 Phlebotomy Instructor History LMP: 06/28/2025 (Exact Date), Having periods Age at Menarche: 9 Age at First : Age at Menopause: Phlebotomy Instructor History Comments: Sexual Activity: Not Currently; Male [...] discussed with the Patient or Patient's Authorized Cloth Finishing Range Back Tender. As applicable, any other physician, advance practice provider, medical student, or other health professional student that will be observing or involved in the sensitive examination for educational or training purposes was discussed with the Patient or Authorized Cloth Finishing Range Back Tender. The Patient or Authorized Cloth Finishing Range Back Tender has agreed to proceed with the sensitive [...] external genitalia normal, normal Bartholin's glands, urethra, [place]'s glands, no vulvar lesions, no cervical lesions, [...] changes to plan of care Mckenzie Constantino APRN.CNM [1] Social History Tobacco Use Smoking status: Never Smokeless tobacco: Never Substance Use Topics Alcohol use: Never Drug use: Never [facility] 07-12-2025 Note HNO ID: [id number] Author: JASEN GABRIEL APRN.CRYSTALIZER Service: ? Author Type: Nurse Practitioner Type: Progress Notes Filed: 07/12/2025 09:28 Note Text: URGENT CARE HAYDE Louie is a 19 [...] foreign body of left foot, initial encounter (Z82.878U) - Foreign body removed under local anesthesia. - Tetanus vaccination up to date. - Advised to keep wound clean and dry; no antibiotics indicated at this time. Full removal, patient tolerated well. and Recording using ambient [employer] software for draft documentation of the visit was discussed with the patient/authorized small business sales representative; all questions welcomed and answered. Patient/authorized small business sales representative agreed to proceed MDM Eye/Body Foreign body removal Date/Time: 07/12/2025 9:22 AM Performed by: Jasen Gabriel APRN.CRYSTALIZER Authorized by: Jasen Gabriel APRN.CRYSTALIZER Location: Location: Toe Toe location: L little [...] Topics Alcohol use: Never Drug use: Never [facility] 07-12-2025 History of Presen t illness [...] - Unsure if the object is metal; [employer] works with metal. - Attempted to remove [...] foreign body of left foot, initial encounter (S90.789Z) - Foreign body removed under local anesthesia. - Tetanus vaccination up to date. - Advised to keep wound clean and dry; no antibiotics indicated at this time. Full removal, patient tolerated well. 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 Patient/authorized small business sales representative agreed to proceed MDM Eye/Body Foreign body removal Date/Time: 07/12/2025 9:22 AM Performed by: Jasen Gabriel APRN.CRYSTALIZER Authorized by: Jasen Gabriel APRN.CRYSTALIZER Location: Location: Toe Toe location: L little [...] Drug use: Never documented in this encounter [facility] 05-28-2025 Instructions Edie Aleman APRN.CNP - [...] Feverfew: Feverfew is a common garden herb tejon to [place] and popular [facility] as a treatment for disorders typically [...] pepperoni, Pickled webb Pods of broad michaels (Syrian beans, [place] Korean pea pods, Irish (heather) beans, dc and navy beans Ripe avocado, ripe banana Yeast extracts or active yeast preparations such as Saenz's or Andrew's (commercial bakes goods are permitted) Tomato based foods, pizza (lasagna, etc.) MSG (monosodium glutamate) is disguised as many things; look for these common aliases: Monopotassium glutamate Autolysed yeast Hydrolysed protein Sodium caseinate flavorings all natural preservatives" Nutrasweet Avoid all other foods that convincingly provoke headaches. Headache Prevention Strategies: 1. Maintain a headache diary; learn to identify and avoid triggers. Common triggers include: Emotional triggers: Emotional/Upset family or friends Emotional/Upset occupation Business reversal/success Anticipation anxiety Crisis-serious Post-crisis periodNew job/position Physical triggers: Vacation Day Weekend Strenuous Exercise High Altitude Location New Move Day Physical Illness Oversleep/Not enough sleep Weather [...] much light. These can be obtained at Anagear.Hoods or [employer]: see list above. 2. Limit use of acute treatments (sqfv-cxh-rxoffrf medications, triptans, etc.) to no more than [...] and quiet environment. Relax and reduce stress. Gbwpfxa8Dpgux is a free kimber that can instruct you on some simple relaxtion and breathing techniques. Http://[employer] is a free website that provides teaching [...] testing that will reveal this dysfunctional electrical circuitry" such on MRI, or other testing. We [...] and will be handling your phone calls, Food Reportert Messages and inquiries, if any. Unless explicitly told otherwise at the time of your office visit, your study results and ensuing treatment plans will be released via RADLIVE and discussed during your follow-up appointment. MyChart: Please ask the schedulers to give you an activation code. The main way of communication is by Food Reportert rather than phone lines, so if you have not signed up, please do so. Food Reportert is also the way that you can review your labs and testing. We are not able to contact everyone to tell them results are normal. If you do not hear back from us regarding testing you have had, it should be considered normal or within normal range. If you have any questions about the results, you are free to message us. RADLIVE is meant for simple questions regarding medications, possible side effects, or other simple straight forward questions in limited sentences, rather than multiple paragraphs of discussion. RADLIVE is not meant for, or efficient for [...] do not comment on most testing on [facility] in a message or commentary unless there [...] with this process. documented in this encounter [facility] 05-28-2025 Note HNO ID: [id number] Author: EDIE ALEMAN APRN.CNP Service: ? Author Type: Nurse Practitioner Type: Progress Notes Filed: 05/28/2025 14:28 Note Text: Virtual Visit New Encounter May 28, 2025 Elsa Louie I have communicated my name and active licensure. The patient's identity and physical location were verified at the time of this visit. Either the patient or their legal small business sales representative has been informed of the risks [...] requesting physician via US mail. Recording using [employer] software for draft documentation of the visit was discussed with the patient/authorized small business sales representative; all questions welcomed and answered. Patient/authorized small business sales representative agreed to proceed CC: Headache History: Elsa Louie is a 19 year old year old, woman who has a past medical history of Uterine polyp. Current Headache treatment Preventative: none Abortive: Onset: Chronic Migraines: - Severe migraines x9 months, causing significant functional impairment. - Migraines began worsening 3 years ago, with severe episodes starting 9 months ago. - Describes migraines as "excruciating," causing inability to work. - Associated symptoms: [...] as squeezing the life out of my head," present 13/06, without visual disturbances or facial numbness. - [...] General: well a (more content not included)... [facility] 05-28-2025 History of Presen t illness Narrative Virtual Visit New Encounter May 28, 2025 Elsa Louie I have communicated my name and active licensure. The patient's identity and physical location were verified at the time of this visit. Either the patient or their legal small business sales representative has been informed of the risks [...] requesting physician via US mail. Recording using [employer] software for draft documentation of the visit was discussed with the patient/authorized small business sales representative; all questions welcomed and answered. Patient/authorized small business sales representative agreed to proceed CC: Headache History: Elsa Louie is a 19 year old year old, woman who has a past medical history of Uterine polyp. Current Headache treatment Preventative: none Abortive: Onset: Chronic Migraines: - Severe migraines x9 months, causing significant functional impairment. - Migraines began worsening 3 years ago, with severe episodes starting 9 months ago. - Describes migraines as "excruciating," causing inability to work. - Associated symptoms: [...] as squeezing the life out of my head," present 24/, without visual disturbances or facial numbness. - [...] and clear, coherent, and relevant. Short and usp memory, cognition and general fund of knowledge [...] addition to all other comorbidities. Edie Aleman APRN.[facility] 05/28/2025 PROMIS Global Health Physical Health Summary [...] study not recommended) documented in this encounter [facility] 05-09-2025 Telephone encounter Note Patient calling with request for physician referral: Patient referred to Neurology Department. Patient denies any new or worsening symptoms of which a provider is not aware: Yes. AC took call back over for scheduling. [facility] 05-09-2025 Miscellaneous Notes Patient calling with request for physician referral: Patient referred to Neurology Department. Patient denies any new or worsening symptoms of which a provider is not aware: Yes. AC took call back over for scheduling. documented in this encounter [facility] 05-07-2025 Nicolette Macdonald APRN.CNM - 05/07/2025 [...] on an ongoing basis if needed. NAC (V-uvnsia-aloqlplw) is a naturally occurring detox chemical in [...] symptom management: Sahra Yost MD PCOS Supplements: https://Jobzella.Hoods/pcos-natur al-prescription/ https://Oatmeal/herbs-and- tywdcwilovg-dxd-ulow/ PCOS Diet Support: https://Oatmeal/the-pcos-d iet/ https://Oatmeal/pcos-gut-c onnection/ Cycle Regulation: https://ORVIBOvarVault Dragon.com/vitex-horm ones/ Polycystic Ovary Syndrome Women with polycystic [...] is provided by your physician and the [facility] Journal of Medicine and the [facility] http//my.[facility].org/wom ens_health/default.aspx. This information has not been designed to replace a physician's medical assessment and medical judgment. Copyright 1994- 2012 [facility]. All rights reserved This information is provided by the [facility] and is not intended to replace the medical advice of your doctor or health care provider. Please consult your health care provider for advice about a specific medical condition. For additional health information, please contact the Center for Consumer Health Information at the [facility] or toll-free extension [phone]. If you prefer, you may visit www.[facility].org/health/ or www.[facility].org. This document was last reviewed on: 2009 index#2252 What Is Cholesterol? Cholesterol is a chemical [...] program if necessary. documented in this encounter [facility] 05-07-2025 Note HNO ID: [id number] Author: NICOLETTE NEUMANN APRN.CNM Service: ? Author Type: Shuttleless Loom Weaver Type: Progress Notes Filed: 05/07/2025 12:45 Note Text: Obstetrics and Gynecology [place] [facility] Visit Subjective Recording using [employer] software for draft documentation of the visit was discussed with the patient/authorized small business sales representative; all questions welcomed and answered. Patient/authorized small business sales representative agreed to proceed CHIEF COMPLAINT: Follow [...] flow. She describes her menstrual pattern as "very random," with multiple periods in a month or none at all. She also reports significant cramping and a sensation of pelvic heaviness described as feeling like a "bowling ball." She denies current sexual activity, with the [...] bowling ball in her vaginal area. Feels "heaviness" not painful but uncomfortable. Currently engaged not [...] severe weakness, described as feeling like a "limp noodle." She experiences these headaches every day, starting around 3565-6692 and worsening by evening, affecting her vision. [...] The patient expresses interest in consulting a meat service team member. She is hesitant to start control due [...] Living0 SAB0 IAB0 Ectopic0 Multiple0 Live Births0 Phlebotomy Instructor History LMP: 05/03/2025 (Exact Date), Having periods Age at Menarche: 9 Age at First : Age at Menopause: Phlebotomy Instructor History Comments: Sexual Activity: Not Currently; Male [...] inspiratory effort NEURO: (more content not included)... [facility] 05-07-2025 History of Presen t illness Narrative Images from the original note were not included. Obstetrics and Gynecology [place] [facility] Visit Subjective Recording using ambient Pollen - Social Platform software for draft documentation of the visit was discussed with the patient/authorized small business sales representative; all questions welcomed and answered. Patient/authorized small business sales representative agreed to proceed CHIEF COMPLAINT: Follow [...] flow. She describes her menstrual pattern as "very random," with multiple periods in a month or none at all. She also reports significant cramping and a sensation of pelvic heaviness described as feeling like a "bowling ball." She denies current sexual activity, with the [...] bowling ball in her vaginal area. Feels "heaviness" not painful but uncomfortable. Currently engaged not [...] severe weakness, described as feeling like a "limp noodle." She experiences these headaches every day, starting around 1626-4264 and worsening by evening, affecting her vision. [...] The patient expresses interest in consulting a meat service team member. She is hesitant to start control due [...] Living0 SAB0 IAB0 Ectopic0 Multiple0 Live Births0 Phlebotomy Instructor History LMP: 05/03/2025 (Exact Date), Having periods Age at Menarche: 9 Age at First : Age at Menopause: Phlebotomy Instructor History Comments: Sexual Activity: Not Currently; Male [...] oriented x3 EXTREMITIES: normal Results [facility] (Acc#[id number] ) (Order [id number]) Patient Info Patient Name Sex Elsa Louie ([id number]) Female 2005 Ultrasound [id number] 03/15/2025 8:09 PM Adelina Ibrahim MD Signed by Adelina Ibrahim MD on 03/15/25 at 2009 Display only: Security Escort ([id number] ) on 03/15/2025 8:09 PM by Adelina [...] is recommended in 6 months. Latest Ref Rng 03/04/2025 WBC 3.70 - 11.00 k/uL 6.09 [...] Abs Lymph 1.00 - 4.00 k/uL 1.71 [place]% % 8.0 Abs [place] <0.87 k/uL 0.49 Eosin% % 2.1 Abs [...] Nicolette Neumann APRN.CNM documented in this encounter [facility] 05-04-2025 Hospital Discharg e instructions Patient [...] of your face Difficulty talking or seeing [phone] [employer]. [address] [place] [address]. All rights reserved. This information is not intended as a substitute for professional medical care. Always follow your healthcare professional's instructions. Follow Up Care 05/03/2025 22:55:23 With:ABIEL CUETO DO, Neurology Service Address: [address] [place] [address] [place] [phone] When:2-4 days With:DANIELA FENTON PHOTOGRAPHIC TECHNICIAN [facility] Address: [address] [place] [address] [place] [address]- When:2-4 days [facility] 05-04-2025 Note Discharge Instructions Thank you for allowing [place] to assist you with your healthcare needs. The following is important discharge information regarding your hospital visit. Diagnosis from Today's Visit Migraine What to Do Next Instructions from Your Care Team No qualifying data available. Post Acute Orders No qualifying data available. You Need to Schedule the Following Appointments Follow Up with ABIEL CUETO DO, Neurology Service When:Within 2-4 days Where:[address] [facility] [place] [address] [phone] Follow Up with DANIELA FENTON APRN - CRYSTALIZER When:Within 2-4 days Where:[address] [facility] [place] [address]- Allergies Contrast dye Medications Please ask your [...] of your face Difficulty talking or seeing [phone] [employer]. [address] [place] [address]. All rights reserved. This information is not intended as a substitute for professional medical care. Always follow your healthcare professional's instructions. Additional Information VACCINATE! IT SAVES LIVES! Members of the community who have not yet received the COVID-19 vaccine and would like to receive it can visit one of [facility] vaccine clinics. There are many vaccine clinic locations within the [facility]. For locations and available times, please visit www.gettheshot.coronavirus.[place]. gov/. It is important to note that some COVID mobile vaccine clinics are held outdoors and may be canceled in rainy or stormy conditions. To learn more about pediatric vaccinations (ages 5-11), we invite you to visit the [facility] webpage. https://www.[facility].org/p ages/9599-Twvtt-Dioulagotrv-Freq adlsdm-Jjfwn-Bfmtdnsft.html To learn more about the COVID-19 vaccine, we invite you to visit the CDC website for a list of frequently asked questions. https://www.cdc.gov/coronavirus/ 2019-ncov/vaccines/faq.html [facility] Patient Portal Access Instructions: Stay connected with your healthcare team and access your personal medical information anytime with the [facility] Patient Portal. If you would like a full copy of your medical records please contact the [facility] Medical Records Department Tuesday through Tuesday between 8a.m. and 4:30p.m. Please follow the directions below to access the portal: 1.Access the email account you provided upon registration to the [facility].2.Look for an invitation email from [facility].3.Open the email and access the invitation link: Accept Invitation to [facility]4.Fill in the required pearl to create your account. Sign into [email or web address] with your username and password that you [...] you will allow to register on the [place] [facility] Patient Portal for access to your information. You can also access the [place] [facility] Patient Portal on the Widemile. Simply click on "Health Records" under "Health Data" and then click on the [facility] logo. [...] Call your local pharmacy or go to [email or web address]/[email or web address] to find one close to you.3.Make use of household items: Use cat litter or old coffee grounds to dispose medications if other options are not available. Mix your drugs with these household products, seal them in an airtight container and throw it into the garbage. Call [facility]: [phone] to be sure your drugs can be [...] aware that I should contact my doctor. 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 Signature: Date/Time: Relationship to Patient: Witness Name/Signature: Date/Time: [facility] 05-04-2025 Note Exam Date Time Procedure Performing Provider Status 05/04/25 12:[address] Head or Brain w/o Contrast CAROLYN GAGE MD; Auth (Verified) [id number] ORIGINAL EXAMINATION: CT OF THE HEAD WITHOUT [...] Sign Date: 05/04/2025 12:27:46 AM Ordering Provider: [facility]04-25-2025 NoteHNO ID: [id number] Author: DALILA CALERO MD Service: ? Author Type: Physician Type: Progress Notes Filed: 03/15/2025 20:11 Note Text: Elsa Louie is a 19 year old female who presented for porcelain turner ultrasound today. Encounter Diagnosis ICD-10-CM 1. Abnormal uterine bleeding (AUB) N93.9 2. Pelvic pain in female R10.2 Please see report under imaging tab. Dalila Calero MD March 15, 2025 8:05 [facility]04-09-2025 NoteHNO ID: [id number] Author: NICOLETTE NEUMANN APRN.CNM Service: ? Author Type: Shuttleless Loom Weaver Type: Progress Notes Filed: 03/04/2025 17:11 Note Text: Elsa Louie is a 19 year old female who presents for problem visit for . HPI: Seen PCP and then referred to specialist. Tried several controls but didn't get any resolution. Seen provider at [place]. Menses have been never been normal. Menarche [...] bowling ball in her vaginal area. Feels "heaviness" not painful but uncomfortable. Currently engaged not [...] Living0 SAB0 IAB0 Ectopic0 Multiple0 Live Births0 Phlebotomy Instructor History LMP: 02/11/2025 (Exact Date), Having periods Age at Menarche: 9 Age at First : Age at Menopause: Phlebotomy Instructor History Comments: Sexual Activity: Not Currently; Male [...] discussed with the Patient or Patient's Authorized Cloth Finishing Range Back Tender. As applicable, any other physician, advance practice provider, medical student, or other health professional student that will be observing or involved in the sensitive examination for educational or training purposes was discussed with the Patient or Authorized Cloth Finishing Range Back Tender. The Patient or Authorized Cloth Finishing Range Back Tender has agreed to proceed with the sensitive [...] external genitalia normal, normal Bartholin's glands, urethra, [place]'s glands, no vulvar lesions, no cervical lesions, [...] Future COMPLETE BLOOD COUN (more content not included)...[facility] 02-27-2025 History of Present illness Narrative* Nicolette Neumann APRN.[facility] - 02/27/2025 1:53 PM EDT Elsa Louie is a 19 year old female who presents for problem visit for . HPI: Seen PCP and then referred to specialist. Tried several controls but didn't get any resolution. Seen provider at [place]. Menses have been never been normal. Menarche [...] bowling ball in her vaginal area. Feels "heaviness" not painful but uncomfortable. Currently engaged not [...] Living0 SAB0 IAB0 Ectopic0 Multiple0 Live Births0 Phlebotomy Instructor History LMP: 02/11/2025 (Exact Date), Having periods Age at Menarche: 9 Age at First : Age at Menopause: Phlebotomy Instructor History Comments: Sexual Activity: Not Currently; Male [...] discussed with the Patient or Patient's Authorized Cloth Finishing Range Back Tender. As applicable, any other physician, advance practice provider, medical student, or other health professional student that will be observing or involved in the sensitive examination for educational or training purposes was discussed with the Patient or Authorized Cloth Finishing Range Back Tender. The Patient or Authorized Cloth Finishing Range Back Tender has agreed to proceed with the sensitive [...] external genitalia normal, normal Bartholin's glands, urethra, [place]'s glands, no vulvar lesions, no cervical lesions, [...] NAAT Nicolette Neumann APRN.CNM [facility]* Patient Instructions* Rhianna Jameson RD - 11/28/2024 1:15 PM EST Recommend starting Low FODMAP for 3 weeks or a trial of IBGard for 3 weeks. Message me with update on symptoms after 3 weeks. https://www.ibsfree.net/ https://www.Communication Intelligence.Hoods/products/ibgard [facility] Hospital Discharge instructions Patient Education 11/22/2024 00:45:10 Gastroenteritis, Viral (Adult) Viral Gastroenteritis (Adult) Gastroenteritis is commonly called the "stomach flu," although it has nothing to do with [...] with soap and water or use alcohol-based pocket grinder operator to prevent the spread of infection. Wash your hands after touching anyone who is sick. Wash your hands or use alcohol-based pocket grinder operator after using the toilet and before meals. [...] Keep uncooked meats away from cooked and quazr-ku-eyp foods. Medicine You may use acetaminophen or [...] directed by your healthcare provider Donn romero [phone] [employer]. [address] [place] [address], [place] [address]. All rights reserved. This information is not intended as a substitute for professional medical care. Always follow yourhealthcare professional's instructions. Follow Up Care 11/21/2024 23:03:32 With:NICOLETTE ESQUIVEL Address: [address] [place] [phone] When:2-4 days Comments:Return to ED if symptoms worsen [facility] 01-02-2025 Note Discharge Instructions Thank you for allowing [place] to assist you with your healthcare needs. The following is importantdischarge information regarding your hospital visit. Diagnosis from Today's Visit Gastroenteritis What to Do Next Instructions from Your Care Team No qualifying data available. Post Acute Orders No qualifying data available. You Need to Schedule the Following Appointments Follow Up with NICOLETTE ESQUIVEL When:Within 2-4 days Where:[address] [place] [phone] Additional Information: Return to ED if symptoms [...] may report side effects to FDA at 3-997-UWG-2893. What other drugs will affect ondansetron? Ondansetron can cause a serious heart problem. Your risk may be higher if you also use certain other medicines for infections, asthma, heart problems, high blood pressure, depression, mental illness,cancer, malaria, or HIV. Many drugs can affect ondansetron. This includes prescription and rcsf-myi-rkgkzar medicines, vitamins, and herbal products. Not all [...] to ensure that the information provided by [employer]. ('Mult[employer]') is accurate, up-to-date, and complete, but no guarantee is made to that effect. Drug information contained herein may be time sensitive. [employer] information has been compiled for use by healthcare practitioners and consumers in the [place] and therefore [employer] does not warrant that uses outside of the [place] are appropriate, unless specifically indicated otherwise. [employer] drug information does not endorse drugs, diagnose patients or recommend therapy. [employer] drug information isan informational resource designed to [...] effective or appropriate for any given patient. [employer] does not assume any responsibility for any aspect of healthcare administered with the aid of information [employer] provides. The information contained herein is not intended to cover all possible uses, directions, precautions, warnings, drug interactions, allergic reactions, or adverse effects. If you have questions about the drugs you are taking, check with your doctor, nurse or pharmacist. Copyright 5949-6321 [employer]. Version: 17.. Revision Date: 08/14/2024. Education Materials Viral Gastroenteritis (Adult) Gastroenteritis is commonly called the "stomach flu," although it has nothing to do with [...] with soap and water or use alcohol-based pocket grinder operator to prevent the spread of infection. Wash your hands after touching anyone who is sick. Wash your hands or use alcohol-based pocket grinder operator after using the toilet and before meals. [...] Keep uncooked meats away from cooked and obijw-wx-oup foods. Medicine You may use acetaminophen or [...] directed by your healthcare provider Donn romero [phone] [employer]. [address] [place] [address]. All rights reserved. This information is not intended as a substitute for professional medical care. Always follow yourhealthcare professional's instructions. Additional Information VACCINATE! IT SAVES LIVES! Members of the community who have not yet received the COVID-19 vaccine and would like to receive it can visit one of [facility] vaccine clinics. There are many vaccine clinic locations within the [facility]. For locations and available times, please visit www.gettheshot.coronavirus.[place].gov/. It is important to note that some COVID mobile vaccine clinics are held outdoors and may be canceled in rainy or stormy conditions. To learn more about pediatric vaccinations (ages 5-11), we invite you to visit the [facility] webpage. https://www.[facility].org/pages/4299-Qsvem-Rcpkrxrpdda-Qprsgeqbpl-Trzrt-Xwf stions.htmlTo learn more about the COVID-19 vaccine, we invite you to visit the CDC website for a list of frequently asked questions. https://www.cdc.gov/coronavirus/2019-ncov/vaccines/faq.html [place] [facility] Patient Portal Access Instructions: Stay connected with your healthcare team and access your personal medical information anytime with the [facility] Patient Portal. If you would like a full copy of your medical records please contact the [facility] Medical Records Department Tuesday through Tuesday between 8a.m. and 4:30p.m. Please follow the directions below to access the portal: 1.Access the email account you provided upon registration to the [facility].2.Look for an invitation email from [facility].3.Open the email and access the invitation link: Accept Invitation to [place] [facility]4.Fill in the required pearl to create your account. Sign into [email or web address] with your username and password that you [...] you will allow to register on the [facility] Patient Portal for access to your information. You can also access the [place] [facility] Patient Portal on the Widemile. Simply click on "Health Records" under "HealthData" and then click on the [employer] logo. HOW TO SAFELY DISPOSE OF PRESCRIPTION [...] Call your local pharmacy or go to http://PhotoBox.iBio/2L8Mi2b to find one close to you.3.Make use of household items: Use cat litter or old coffee grounds to dispose medications if other options arenot available. Mix your drugs with these household products, seal them in an airtight container andthrow it into the garbage. Call [facility]: [phone] to be sure your drugs can be [...] aware that I should contact my doctor. 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 Signature: Date/Time: Relationship to Patient: Witness Name/Signature: Date/Time: [facility]12-30-2024 History of Present illness Narrative * Nicolette Hernandez RDMS - 11/19/2024 11:30 AM EST Radiology Service [...] PATIENT PRESENTS WITH AN IMPLANTABLE OR ATTACHED PRODUCTION LINE MECHANIC: No RADIOLOGY DEPARTMENT: Ultrasound PERIPHERAL IV DATA: Not applicable SIGNED BY: Nicolette Hernandez RDMS RVRadames November 19, 2024 1:23 PM [facility] NoteHNO ID: [id number] Author: NICOLETTE HERNANDEZ RDMS Service: ? Author Type: Submarine Element Coordinator Type: Progress Notes Filed: 11/19/2024 13:23 Note [...] PATIENT PRESENTS WITH AN IMPLANTABLE OR ATTACHED PRODUCTION LINE MECHANIC: No RADIOLOGY DEPARTMENT: Ultrasound PERIPHERAL IV DATA: Not applicable SIGNED BY: Nicolette Hernandez RDMS RVT November 19, 2024 1:23 [facility]12-19-2024 NoteHNO ID: [id number] Author: RHIANNA JAMESON RD Service: ? Author Type: Registered Dietitian Type: Progress Notes Filed: 11/28/2024 13:15 Note Text: [facility] Nutrition Therapy: Virtual Consult - Initial Assessment I have communicated my name and active licensure. The patient?s identity and physical location were verified at the time of this visit. Either the patient or their legal small business sales representative has been informed of the risks [...] update on symptoms after 3 weeks. https://www.ibsfree.net/ https://[employer].Exec/products/ibgard Nutrition Monitoring AND Evaluation: improved IBS symptoms Need for Follow up: PRN Patient presents with possible IBS and obesity for nutrition therapy. PMH:POTS "Stomach always upset" gas pains, crampy, full fast, bloating, alternating [...] - salad w/ chicken, isa, olives, tomato, ranch/german/thousand island or type soldering machine tender AND swedish fries or granola bar or leftovers Snack - none Dinner - chicken + swedish fries + asparagus.broccoli/salad +/- strawberries -Home made [...] Last Ht 11/08/24 : 154.9 cm (5' 1") Current weight: Last Wt 11/08/24 : 72.6 [...] Physical limitations affecting learning: None Referred by: Serafin MATHIS Billing Type: Initial Assess/15 min 3 units SIGNATURE: Rhianna Jameson RD PATIENT NAME: Elsa Hunt Masters DATE: November 08, 2024 TIME: 2:34 PM [phone] History of Present illness Narrative* Rhianna Jameson RD - 11/08/2024 2:33 PM EST [facility] Nutrition Therapy: Virtual Consult - Initial Assessment I have communicated my name and active licensure. The patient s identity and physical location wereverified at the time of this visit. Either the patient or their legal small business sales representative has been informed of the risks [...] update on symptoms after 3 weeks. https://www.ibsfree.net/ https://www.Exec/products/ibgard Nutrition Monitoring & Evaluation: improved IBS symptoms Need for Follow up: PRN Patient presents with possible IBS and obesity for nutrition therapy. PMH:POTS "Stomach always upset" gas pains, crampy, full fast, bloating, alternating [...] - salad w/ chicken, isa, olives, tomato, ranch/german/thousand island or type soldering machine tender & swedish fries or granola bar or leftovers Snack - none Dinner - chicken + swedish fries + asparagus.broccoli/salad +/- strawberries -Home made [...] Last Ht 11/08/24 : 154.9 cm (5' 1") Current weight: Last Wt 11/08/24 : 72.6 [...] Physical limitations affecting learning: None Referred by: Serafin MATHIS Billing Type: Initial Assess/15 min 3 units SIGNATURE: Rhianna Jameson RD PATIENT NAME: Elsa Hunt Masters DATE: November 08, 2024 TIME: 2:34 PM PAGER: [phone] documented [facility]24 NoteHNO ID: [id number] Author: ZOLTAN BETANCOURT MD Service: ? Author Type: Physician Type: Progress Notes Filed: 11/05/2024 08:35 Note Text: Virtual visit, 20 minutes, patient agreed I have communicated my name and active licensure. The patient's identity and physical location were verified at the time of this visit. Either the patient or their legal small business sales representative has been informed of the risks [...] Labs GB US Consult Nutrition Zoltan Betancourt [facility] History of Present illness Narrative* Zoltan Betancourt MD - 11/05/2024 8:17 AM EST Virtual visit, 20 minutes, patient agreed I have communicated my name and active licensure. The patient's identity and physical location wereverified at the time of this visit. Either the patient or their legal small business sales representative has been informed of the risks [...] Nutrition Zoltan Betancourt MD [facility] Evaluation + Plan note Future Scheduled Tests Laboratory* H. pylori Stool Ag, EIA 10/09/24 Radiology* CT Head or Brain w/o Contrast 03/15/24 [facility] 10-17-2024 Hospital Discharge instructions Patient Education [...] provider Burning when you urinate Foul-smelling urine [id number] [employer]. [address] [place] [address]. All rights reserved. This information is not intended as a substitute for professional medical care. Always follow yourhealthcare professional's instructions. Follow Up Care 09/05/2024 22:45:38 With:Go to emergency room if symptoms worsen Address:Unknown When:2-4 days With:NICOLETTE ESQUIVEL Address: [address] [place] [address] [phone] When:2-4 days [facility] 10-17-2024 Note Discharge Instructions Thank you for allowing [place] to assist you with your healthcare needs. [...] Up with NICOLETTE ESQUIVEL When:Within 2-4 days Where:[address] [place] [phone] Allergies Contrast dye Medications Please ask your primary doctor or pharmacist before taking any other medication not listed, including over the counter drugs, herbal medications, vitamins and or supplements as they may interact [facility] medications. What How Much When Instructions [...] provider Burning when you urinate Foul-smelling urine [phone] [employer]. [address] [place] [address], [place] [address]. All rights reserved. This information is not intended as a substitute for professional medical care. Always follow yourhealthcare professional's instructions. Additional Information VACCINATE! IT SAVES LIVES! Members of the community who have not yet received the COVID-19 vaccine and would like to receive it can visit one of [facility] vaccine clinics. There are many vaccine clinic locations within the [facility]. For locations and available times, please visit www.gettheshot.coronavirus.[place].gov/. It is important to note that some COVID mobile vaccine clinics are held outdoors and may be canceled in rainy or stormy conditions. To learn more about pediatric vaccinations (ages 5-11), we invite you to visit the [employer] webpage. https://www.Aureliants.org/pages/7647-Xmuaq-Pmuchdgfhtx-Qtvdxhumzi-Uiorl-Wvx stions.htmlTo learn more about the COVID-19 vaccine, we invite you to visit the CDC website for a list of frequently asked questions. https://www.cdc.gov/coronavirus/2019-ncov/vaccines/faq.html [facility] Patient Portal Access Instructions: Stay connected with your healthcare team and access your personal medical information anytime with the [facility] Patient Portal. If you would like a full copy of your medical records please contact the [facility] Medical Records Department Tuesday through Tuesday between 8a.m. and 4:30p.m. Please follow the directions below to access the portal: 1.Access the email account you provided upon registration to the hospital.2.Look for an invitation email from [facility].3.Open the email and access the invitation link: Accept Invitation to [facility]4.Fill in the required pearl to create your account. Sign into [email or web address] with your username and password that you [...] you will allow to register on the [facility] Patient Portal for access to your information. You can also access the [facility] Patient Portal on the Widemile. Simply click on "Health Records" under "HealthData" and then click on the Medafor logo. HOW TO SAFELY DISPOSE OF PRESCRIPTION [...] Call your local pharmacy or go to http://PhotoBox.iBio/8Z6Vy3b to find one close to you.3.Make use of household items: Use cat litter or old coffee grounds to dispose medications if other options arenot available. Mix your drugs with these household products, seal them in an airtight container andthrow it into the garbage. Call [facility]: [phone] to be sure your drugs can be [...] aware that I should contact my doctor. 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 Signature: Date/Time: Relationship to Patient: Witness Name/Signature: Date/Time: [facility]10-16-2024 NoteSinus rhythm RSR' in V1 or V2, right VCD or RVH Borderline T abnormalities, anterior leads Baseline wander in lead(s) V3,V5,V6 Electronic Signature: ROCIO REYNOLDS DO 09/05/2024 23:23:30[facility] 09-06-2024 Note ORIGINAL EXAMINATION: GASTRIC EMPTYING [...] Sign Date: 07/27/2024 3:35:18 PM [facility] Hospital Discharge instructions Patient Education 06/11/2024 16:11:16 [...] body (not just your head.) Or, place 4" blocks under the head of your bed. [...] the back, neck, shoulder, or arm An zibv-cpn-gpmrtkv trial of medicine doesn't relieve your symptoms Weight loss that can't be explained Trouble or pain swallowing Frequent vomiting (can t keep down liquids) Blood in the stool or vomit (red or black in color) Feeling weak or dizzy Fever of 100.4 F (38 C) or higher, or as directed by your healthcare provider [phone] [employer]. [address] [place] [address]. All rights reserved. This information is not intended as a substitute for professional medical care. Always follow yourhealthcare professional's instructions. Follow Up Care 06/11/2024 12:39:15 With:NICOLETTE ESQUIVEL APRN-CRYSTALIZER Address: [address] [facility] [place] [address]- [phone] When:2-4 days [facility] 07-22-2024 Emergency department Discharge summary Discharge Instructions Thank you for allowing [place] to assist you with your healthcare needs. The following is importantdischarge information regarding your hospital visit. What to Do Next Instructions from Your Care Team No qualifying data available. Post Acute Orders No qualifying data available. You Need to Schedule the Following Appointments Follow Up with NICOLETTE ESQUIVEL When:Within 2-4 days Where:[address] [facility] [place] [address]- [phone] Allergies Contrast dye Medications Please ask your [...] body (not just your head.) Or, place 4" blocks under the head of your bed. [...] the back, neck, shoulder, or arm An gmtw-grd-phucrfb trial of medicine doesn't relieve your symptoms Weight loss that can't be explained Trouble or pain swallowing Frequent vomiting (can t keep down liquids) Blood in the stool or vomit (red or black in color) Feeling weak or dizzy Fever of 100.4 F (38 C) or higher, or as directed by your healthcare provider [phone] [employer]. [address] [place] [address]. All rights reserved. This information is not intended as a substitute for professional medical care. Always follow yourhealthcare professional's instructions. Additional Information VACCINATE! IT SAVES LIVES! Members of the community who have not yet received the COVID-19 vaccine and would like to receive it can visit one of [facility] vaccine clinics. There are many vaccine clinic locations within the [facility]. For locations and available times, please visit www.gettheshot.coronavirus.[place].gov/. It is important to note that some COVID mobile vaccine clinics are held outdoors and may be canceled in rainy or stormy conditions. To learn more about pediatric vaccinations (ages 5-11), we invite you to visit the [facility] webpage. https://www.[facility].org/pages/4224-Buuvn-Zirtcqpbhku-Jyovnesocb-Okpwl-Htn stions.htmlTo learn more about the COVID-19 vaccine, we invite you to visit the CDC website for a list of frequently asked questions. https://www.cdc.gov/coronavirus/2019-ncov/vaccines/faq.html [facility] Patient Portal Access Instructions: Stay connected with your healthcare team and access your personal medical information anytime with the [facility] Patient Portal. If you would like a full copy of your medical records please contact the [facility] Medical Records Department Tuesday through Tuesday between 8a.m. and 4:30p.m. Please follow the directions below to access the portal: 1.Access the email account you provided upon registration to the [facility].2.Look for an invitation email from [facility].3.Open the email and access the invitation link: Accept Invitation to [facility]4.Fill in the required pearl to create your account. Sign into [email or web address] with your username and password that you [...] you will allow to register on the [employer] [facility] Patient Portal for access to your information. You can also access the [employer] Patient Portal on the [employer] kimber. Simply click on "Health Records" under "[employer]" and then click on the Medafor logo. HOW TO SAFELY DISPOSE OF PRESCRIPTION [...] Call your local pharmacy or go to http://[employer]/0R7Ni3m to find one close to you.3.Make use of household items: Use cat litter or old coffee grounds to dispose medications if other options arenot available. Mix your drugs with these household products, seal them in an airtight container andthrow it into the garbage. Call [facility]: [phone] to be sure your drugs can be [...] aware that I should contact my doctor. 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 Signature: Date/Time: Relationship to Patient: Witness Name/Signature: Date/Time: [facility]07-22-2024 Note ORIGINAL EXAMINATION: CT OF THE [...] Sign Date: 06/11/2024 3:58:38 PM Ordering Provider: [facility]06-18-2024 Hospital Discharge instructions Patient Education 05/07/2024 23:50:12 [...] infection spreads to the kidney. The phrases "bladder infection," "UTI," and "cystitis" are often used to describe the same [...] swelling in the outer vaginal area (labia) 7549-6556 [employer]. [address] [place] [address]. All rights reserved. This information is not intended as a substitute for professional medical care. Always follow yourhealthcare professional's instructions. Follow Up Care 05/07/2024 23:03:24 With:NICOLETTE ESQUIVEL APRN-CRYSTALIZER Address: [address] [place] [phone] When:2-4 days [facility] 06-17-2024 Note Discharge Instructions Thank you for allowing [place] to assist you with your healthcare needs. The following is importantdischarge information regarding your hospital visit. What to Do Next Instructions from Your Care Team No qualifying data available. Post Acute Orders No qualifying data available. You Need to Schedule the Following Appointments Follow Up with NICOLETTE ESQUIVEL APRN-CRYSTALIZER When:Within 2-4 days Where:[address] [place] [phone] Allergies Contrast dye Medications Please ask your [...] infection spreads to the kidney. The phrases "bladder infection," "UTI," and "cystitis" are often used to describe the same [...] swelling in the outer vaginal area (labia) 7162-5727 [employer]. [address] [place] [address]. All rights reserved. This information is not intended as a substitute for professional medical care. Always follow yourhealthcare professional's instructions. Additional Information VACCINATE! IT SAVES LIVES! Members of the community who have not yet received the COVID-19 vaccine and would like to receive it can visit one of [facility] vaccine clinics. There are many vaccine clinic locations within the [facility]. For locations and available times, please visit www.gettheshot.coronavirus.[place].gov/. It is important to note that some COVID mobile vaccine clinics are held outdoors and may be canceled in rainy or stormy conditions. To learn more about pediatric vaccinations (ages 5-11), we invite you to visit the [facility] webpage. https://www.[facility].org/pages/7917-Ywkcm-Ywzrphnvvdq-Xfadflbyro-Zxris-Hee stions.htmlTo learn more about the COVID-19 vaccine, we invite you to visit the CDC website for a list of frequently asked questions. https://www.cdc.gov/coronavirus/2019-ncov/vaccines/faq.html [employer] [facility] Patient Portal Access Instructions: Stay connected with your healthcare team and access your personal medical information anytime with the [employer] Patient Portal. If you would like a full copy of your medical records please contact the [facility] Medical Records Department Tuesday through Tuesday between 8a.m. and 4:30p.m. Please follow the directions below to access the portal: 1.Access the email account you provided upon registration to the hospital.2.Look for an invitation email from [facility].3.Open the email and access the invitation link: Accept Invitation to [place] [facility] [employer]4.Fill in the required pearl to create your [...] you will allow to register on the [place] [employer] Patient Portal for access to your information. You can also access the [place] [employer] Patient Portal on the Widemile. Simply click on "Health Records" under "HealthData" and then click on the [place] logo. HOW TO SAFELY DISPOSE OF PRESCRIPTION [...] Call your local pharmacy or go to http://bit.iBio/3T1Hu5q to find one close to you.3.Make use of household items: Use cat litter or old coffee grounds to dispose medications if other options arenot available. Mix your drugs with these household products, seal them in an airtight container andthrow it into the garbage. Call [facility]: [phone] to be sure your drugs can be [...] aware that I should contact my doctor. 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 Signature: Date/Time: Relationship to Patient: Witness Name/Signature: Date/Time: [facility]06-17-2024 NoteSinus rhythm Electronic Signature: SADAF BATISTA DO 05/07/2024 23:30:23[facility] 04-25-2024 Evaluation + Plan note Future Scheduled Tests Radiology* CT Head or Brain w/o Contrast 4/25/24 * US Pelvis Non-OB W/Transvaginal 10/06/23 [facility] 04-25-2024 Note ORIGINAL HISTORY: Headache COMPARISON: [...] Date: 03/15/2024 2:12:13 PM Ordering Provider: NICOLETTE [facility]12-04-2023 Hospital Discharge instructions Patient Education 10/24/2023 21:17:23 [...] prescribed for pain, you can take an vsha-zjk-jyqjubt pain medicine such as ibuprofen or acetaminophen. [...] or as directed by your healthcare provider 6232-3118 [employer]. [address] [place] [address]. All rights reserved. This information is not intended as a substitute for professional medical care. Always follow yourhealthcare professional's instructions. Follow Up Care 10/24/2023 20:56:01 With:NICOLETTE ESQUIVEL Address: [address] [place] [phone] When:2-4 days [facility] 12-04-2023 Note Discharge Instructions Thank you for allowing [place] to assist you with your healthcare needs. The following is importantdischarge information regarding your hospital visit. Diagnosis from Today's Visit Leg pain-swelling Pain in right leg What to Do Next Instructions from Your Care Team Discharge ED Outpatient Vascular Lab - Ordered -- Test Requested: venous ultrasound, Lower extremity, Right, Test Reason: Pain, Mon-Fri 8am-4:30pm: Call [phone] at 7:30am to schedule a same day appointment for testing. Please be aware there may be a short wait time. Post Acute Orders No qualifying data available. You Need to Schedule the Following Appointments Follow Up with NICOLETTE ESQUIVEL When Within 2-4 days Where: [address] [place] [phone] Allergies Contrast dye Medications Please ask your [...] prescribed for pain, you can take an bwse-mqt-qvkcfai pain medicine such as ibuprofen or acetaminophen. [...] or as directed by your healthcare provider [phone] [employer]. [address] [place] [address]. All rights reserved. This information is not intended as a substitute for professional medical care. Always follow yourhealthcare professional's instructions. Additional Information VACCINATE! IT SAVES LIVES! Members of the community who have not yet received the COVID-19 vaccine and would like to receive it can visit one of [facility] vaccine clinics. There are many vaccine clinic locations within the [facility]. For locations and available times, please visit www.gettheshot.coronavirus.[place]/. It is important to note that some COVID mobile vaccine clinics are held outdoors and may be canceled in rainy or stormy conditions. To learn more about pediatric vaccinations (ages 5-11), we invite you to visit the [facility] webpage. https://www.[facility].org/pages/9770-Yltof-Oldxbjdwvrb-Irafpapbyr-Odztt-Yzr stions.htmlTo learn more about the COVID-19 vaccine, we invite you to visit the CDC website for a list of frequently asked questions. https://www.cdc.gov/coronavirus/2019-ncov/vaccines/faq.html [facility] Patient Portal Access Instructions: Stay connected with your healthcare team and access your personal medical information anytime with the [facility] Patient Portal. If you would like a full copy of your medical records please contact the [facility] Medical Records Department Tuesday through Tuesday between 8a.m. and 4:30p.m. Please follow the directions below to access the portal: 1.Access the email account you provided upon registration to the [facility].2.Look for an invitation email from [facility].3.Open the email and access the invitation link: Accept Invitation to [facility]4.Fill in the required pearl to create your account. Sign into [email or web address] with your username and password that you [...] you will allow to register on the [place] [facility] Patient Portal for access to your information. You can also access the [facility] Patient Portal on the [employer] kimber. Simply click on "Health Records" under "[employer]" and then click on the [facility] logo. [...] Call your local pharmacy or go to http://bit.ly/0X9Xr3o to find one close to you.3.Make use of household items: Use cat litter or old coffee grounds to dispose medications if other options arenot available. Mix your drugs with these household products, seal them in an airtight container andthrow it into the garbage. Call [facility]: [phone] to be sure your drugs can be [...] aware that I should contact my doctor. 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 Signature: Date/Time: Relationship to Patient: Witness Name/Signature: Date/Time: [facility]11-16-2023 Evaluation + Plan note Future Scheduled Tests Radiology* US Pelvis Non-OB W/Transvaginal 10/06/23 [facility] 11-13-2023 Note ORIGINAL EXAMINATION: DOUBLE CONTRAST UPPER GI SERIES 10/03/2023 TECHNIQUE: Double contrast upper GI series was performed with barium and air contrast. FLUOROSCOPY DOSE AND TYPE: Radiation Exposure Index: Kerma mGy, 31.2. 52 seconds. COMPARISON: CT abdomen pelvis 09/22/2023 HISTORY: ORDERING SYSTEM PROVIDED HISTORY: Reason for Exam: epigastric pain, nausea and vomiting FINDINGS: Visual Merchandising Specialist image demonstrates a nonobstructive bowel gas pattern. [...] Date: 10/03/2023 9:33:57 AM Ordering Provider: [facility]11-06-2023 Evaluation + Plan note Future Scheduled Tests Radiology* XR Upper GI w/ Air Contrast 09/26/23 * US Pelvis Non-OB W/Transvaginal 09/12/23 [facility] 11-03-2023 Hospital Discharge instructions Patient Education [...] foods again, start with small amounts of ylzd-vf-xtctze, low- fat foods. These include apple sauce, [...] increase stomach acid. Don't use aspirin or sccv-amb-bswjojb pain and fever medicines, if possible. This includes nonsteroidal anti-inflammatory drugs (NSAIDs). Lose excess weight. Finish eating at least 2 hours before you go to bed or lie down. Raise the head of your bed. 5116-5882 [employer]. [address] [place] [address]. All rights reserved. This information is not intended as a substitute for professional medical care. Always follow yourhealthcare professional's instructions. Follow Up Care 09/22/2023 20:59:08 With:NICOLETTE ESQUIVEL Address: [address] [place] [phone] When:1-2 days [facility] 11-02-2023 Note Discharge Instructions Thank you for allowing [place] to assist you with your healthcare needs. [...] Follow Up with NICOLETTE ESQUIVEL When Within 1-2 days Where: [address] [place] [phone] Allergies Contrast dye Medications Please ask your primary doctor or pharmacist before taking any other medication not listed, including over the counter drugs, herbal medications, vitamins and or supplements as they may interact withyour home medications. What How Much When Why Instructions Last Dose New acetaminophen-hydrocodone (Milton 325- 5 mg oral tablet) 1 tab(s) [...] may report side effects to FDA at 6-792-OSS-9111. What other drugs will affect ondansetron? Ondansetron [...] interact with ondansetron. This includes prescription and jypi-cis-oflxant medicines, vitamins, and herbal products. Give a [...] to ensure that the information provided by [employer]. ('[employer]') is accurate, up-to-date, and complete, but no guarantee is made to that effect. Drug information contained herein may be time sensitive. [employer] information has been compiled for use by healthcare practitioners and consumers in the [place] and therefore [employer] does not warrant that uses outside of the [place] are appropriate, unless specifically indicated otherwise. [employer] drug information does not endorse drugs, diagnose patients or recommend therapy. [employer] drug information isan informational resource designed to [...] effective or appropriate for any given patient. [employer] does not assume any responsibility for any aspect of healthcare administered with the aid of information [employer] provides. The information contained herein is not intended to cover all possible uses, directions, precautions, warnings, drug interactions, allergic reactions, or adverse effects. If you have questions about the drugs you are taking, check with your doctor, nurse or pharmacist. Copyright 6361-6614 [employer]. Version: 16.. Revision Date: 06/23/2023. acetaminophen and hydrocodone (a [...] pain, tiredness, loss of appetite, dark urine, rkiki-colored stools, jaundice (yellowing of the skin or [...] may report side effects to FDA at 8-761-DGE-5546. What other drugs will affect acetaminophen and [...] affect acetaminophen and hydrocodone, including prescription and xmun-ejm-finkqfn medicines, vitamins, and herbal products. Not all [...] to ensure that the information provided by [employer]. ('[employer]') is accurate, up-to-date, and complete, but no guarantee is made to that effect. Drug information contained herein may be time sensitive. [employer] information has been compiled for use by healthcare practitioners and consumers in the [place] and therefore [employer] does not warrant that uses outside of the [place] are appropriate, unless specifically indicated otherwise. [employer] drug information does not endorse drugs, diagnose patients or recommend therapy. [employer] drug information isan informational resource designed to [...] effective or appropriate for any given patient. [employer] does not assume any responsibility for any aspect of healthcare administered with the aid of information [employer] provides. The information contained herein is not intended to cover all possible uses, directions, precautions, warnings, drug interactions, allergic reactions, or adverse effects. If you have questions about the drugs you are taking, check with your doctor, nurse or pharmacist. Copyright 2296-8344 [employer]. Version: 19.. Revision Date: 07/11/2023. Education Materials [...] foods again, start with small amounts of vrfm-bb-djiufn, low- fat foods. These include apple sauce, [...] increase stomach acid. Don't use aspirin or hoef-xax-cddlsvd pain and fever medicines, if possible. This includes nonsteroidal anti-inflammatory drugs (NSAIDs). Lose excess weight. Finish eating at least 2 hours before you go to bed or lie down. Raise the head of your bed. 2546-4606 [employer]. [address] [place] [address]. All rights reserved. This information is not intended as a substitute for professional medical care. Always follow yourhealthcare professional's instructions. Additional Information VACCINATE! IT SAVES LIVES! Members of the community who have not yet received the COVID-19 vaccine and would like to receive it can visit one of [facility] vaccine clinics. There are many vaccine clinic locations within the [facility]. For locations and available times, please visit www.[email or web address]/. It is important to note that some COVID mobile vaccine clinics are held outdoors and may be canceled in rainy or stormy conditions. To learn more about pediatric vaccinations (ages 5-11), we invite you to visit the [facility] webpage. https://www.[facility].org/pages/6392-Obpbk-Sjbwodooquh-Lwwrqjvsfg-Knawp-Xho stions.htmlTo learn more about the COVID-19 vaccine, we invite you to visit the CDC website for a list of frequently asked questions. https://www.cdc.gov/coronavirus/2019-ncov/vaccines/faq.html [facility] Access Instructions: Stay connected with your healthcare team and access your personal medical information anytime with the [facility]. If you would like a full copy of your medical records please contact the [facility] Medical Records Department Tuesday through Tuesday between 8a.m. and 4:30p.m. Please follow the directions below to access the portal: 1.Access the email account you provided upon registration to the [facility].2.Look for an invitation email from [facility].3.Open the email and access the invitation link: Accept Invitation to [facility]4.Fill in the required pearl to create your account. Sign into [email or web address] with your username and password that you [...] you will allow to register on the [employer] Patient Portal for access to your information. You can also access the [employer] Patient Portal on the Widemile. Simply click on "Health Records" under "[employer]" and then click on the Medafor logo. HOW TO SAFELY DISPOSE OF PRESCRIPTION [...] Call your local pharmacy or go to http://PhotoBox.iBio/[email or web address] to find one close to you.3.Make use of household items: Use cat litter or old coffee grounds to dispose medications if other options arenot available. Mix your drugs with these household products, seal them in an airtight container andthrow it into the garbage. Call [facility]: [phone] to be sure your drugs can be [...] aware that I should contact my doctor. 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 [...] When Within 1-2 days Where: [address] [facility] [place] [address] [phone] Allergies Contrast dye Medications Please ask your primary doctor or pharmacist before taking any other medication not listed, including over the counter drugs, herbal medications, vitamins and or supplements as they may interact withyour home medications. What How Much When Why Instructions Last Dose New acetaminophen-hydrocodone (Milton 325- 5 mg oral tablet) 1 tab(s) [...] may report side effects to FDA at 4-893-QVQ-4240. What other drugs will affect ondansetron? Ondansetron [...] interact with ondansetron. This includes prescription and xmtv-utv-ytbefez medicines, vitamins, and herbal products. Give a [...] to ensure that the information provided by [employer]. ('[employer]') is accurate, up-to-date, and complete, but no guarantee is made to that effect. Drug information contained herein may be time sensitive. [employer] information has been compiled for use by healthcare practitioners and consumers in the [place] and therefore [employer] does not warrant that uses outside of the [place] are appropriate, unless specifically indicated otherwise. [employer] drug information does not endorse drugs, diagnose patients or recommend therapy. [employer] drug information isan informational resource designed to [...] effective or appropriate for any given patient. [employer] does not assume any responsibility for any aspect of healthcare administered with the aid of information [employer] provides. The information contained herein is not intended to cover all possible uses, directions, precautions, warnings, drug interactions, allergic reactions, or adverse effects. If you have questions about the drugs you are taking, check with your doctor, nurse or pharmacist. Copyright 5477-1428 [employer]. Version: 16.. Revision Date: 06/23/2023. acetaminophen and hydrocodone (a [...] may report side effects to FDA at 6-990-YTX-5207. What other drugs will affect acetaminophen and [...] affect acetaminophen and hydrocodone, including prescription and yznw-azl-qtibosa medicines, vitamins, and herbal products. Not all [...] to ensure that the information provided by [employer]. ('[employer]') is accurate, up-to-date, and complete, but no guarantee is made to that effect. Drug information contained herein may be time sensitive. [employer] information has been compiled for use by healthcare practitioners and consumers in the [place] and therefore [employer] does not warrant that uses outside of the [place] are appropriate, unless specifically indicated otherwise. [employer] drug information does not endorse drugs, diagnose patients or recommend therapy. [employer] drug information isan informational resource designed to [...] effective or appropriate for any given patient. [employer] does not assume any responsibility for any aspect of healthcare administered with the aid of information [employer] provides. The information contained herein is not intended to cover all possible uses, directions, precautions, warnings, drug interactions, allergic reactions, or adverse effects. If you have questions about the drugs you are taking, check with your doctor, nurse or pharmacist. Copyright 2277-4997 [employer]. Version: 19.. Revision Date: 07/11/2023. Education Materials [...] foods again, start with small amounts of fqcz-oz-ilknjn, low- fat foods. These include apple sauce, [...] increase stomach acid. Don't use aspirin or xkpu-vsd-grrehik pain and fever medicines, if possible. This includes nonsteroidal anti-inflammatory drugs (NSAIDs). Lose excess weight. Finish eating at least 2 hours before you go to bed or lie down. Raise the head of your bed. 6772-0663 [employer]. [address] [place] [address], [place] [address]. All rights reserved. This information is not intended as a substitute for professional medical care. Always follow yourhealthcare professional's instructions. Additional Information VACCINATE! IT SAVES LIVES! Members of the community who have not yet received the COVID-19 vaccine and would like to receive it can visit one of [facility] vaccine clinics. There are many vaccine clinic locations within the [facility]. For locations and available times, please visit www.[email or web address]/. It is important to note that some COVID mobile vaccine clinics are held outdoors and may be canceled in rainy or stormy conditions. To learn more about pediatric vaccinations (ages 5-11), we invite you to visit the [facility] webpage. https://www.[facility].org/pages/5601-Zpolx-Cufxevzunhd-Vekclqldbq-Hnpsn-Djq stions.htmlTo learn more about the COVID-19 vaccine, we invite you to visit the CDC website for a list of frequently asked questions. https://www.cdc.gov/coronavirus/2019-ncov/vaccines/faq.html [facility] [place] [facility] Patient Portal Access Instructions: Stay connected with your healthcare team and access your personal medical information anytime with the [facility] [place] [facility] Patient Portal. If you would like a full copy of your medical records please contact the [facility] Medical Records Department Tuesday through Tuesday between 8a.m. and 4:30p.m. Please follow the directions below to access the portal: 1.Access the email account you provided upon registration to the [facility].2.Look for an invitation email from [facility].3.Open the email and access the invitation link: Accept Invitation to [facility]4.Fill in the required pearl to create your [...] you will allow to register on the [place] [facility] Patient Portal for access to your information. You can also access the [facility] Patient Portal on the Widemile. Simply click on "Health Records" under "[employer]" and then click on the [facility] logo. [...] Call your local pharmacy or go to http://PhotoBox.iBio/[email or web address] to find one close to you.3.Make use of household items: Use cat litter or old coffee grounds to dispose medications if other options arenot available. Mix your drugs with these household products, seal them in an airtight container andthrow it into the garbage. Call [facility]: [phone] to be sure your drugs can be [...] aware that I should contact my doctor. 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 Signature: Date/Time: Relationship to Patient: Witness Name/Signature: Date/Time: [facility]11-02-2023 Note ORIGINAL EXAMINATION: CT OF THE [...] Sign Date: 09/22/2023 10:16:08 PM Ordering Provider: [facility]10-23-2023 Evaluation + Plan note Future Scheduled Tests Radiology* US Pelvis Non-OB W/Transvaginal 09/12/23 [facility] 10-22-2023 Hospital Discharge instructions Patient Education [...] pink or lorenzo tissue from the vagina 3242-8807 [employer]. [address] [place] [address], [place] [address]. All rights reserved. This information is not intended as a substitute for professional medical care. Always follow yourhealthcare professional's instructions. Follow Up Care 09/11/2023 03:17:21 With:NICOLETTE ESQUIVEL Address: [address] [place] [address] [phone] Business (1) When:2-4 days Comments:Schedule appointment as soon as possibleReturn to ED if symptoms worsenIncrease fluids clear liquiddiet i.e. Pedialyte Gatorade till 12 noon if tolerating may increase as tolerated can use Anaprox and Tylenol for pain return for intractable vomiting or fever [facility] 10-22-2023 Note Discharge Instructions Thank you for allowing [place] to assist you with your healthcare needs. [...] return for intractable vomiting or fever Where: [address] [place] [address] [phone] Business (1) Allergies NKA Medications Please ask [...] pink or lorenzo tissue from the vagina 9969-1707 [employer]. [address] [place] [address]. All rights reserved. This information is not intended as a substitute for professional medical care. Always follow yourhealthcare professional's instructions. Additional Information VACCINATE! IT SAVES LIVES! Members of the community who have not yet received the COVID-19 vaccine and would like to receive it can visit one of [facility] vaccine clinics. There are many vaccine clinic locations within the [facility]. For locations and available times, please visit www.[email or web address]/. It is important to note that some COVID mobile vaccine clinics are held outdoors and may be canceled in rainy or stormy conditions. To learn more about pediatric vaccinations (ages 5-11), we invite you to visit the [facility] webpage. https://www.[facility].org/pages/4649-Qloiw-Tjkunxoixcf-Wgtczyfkms-Ceqmr-Dvh stions.htmlTo learn more about the COVID-19 vaccine, we invite you to visit the CDC website for a list of frequently asked questions. https://www.cdc.gov/coronavirus/2019-ncov/vaccines/faq.html [facility] Access Instructions: Stay connected with your healthcare team and access your personal medical information anytime with the [facility] Patient Portal. If you would like a full copy of your medical records please contact the [facility] Medical Records Department Tuesday through Tuesday between 8a.m. and 4:30p.m. Please follow the directions below to access the portal: 1.Access the email account you provided upon registration to the hospital.2.Look for an invitation email from [facility].3.Open the email and access the invitation link: Accept [facility]itation to [facility]4.Fill in the required pearl to create your [...] you will allow to register on the [facility] Patient Portal for access to your information. You can also access the [facility] Patient Portal on the Widemile. Simply click on "Health Records" under "HealthData" and then click on the Med[employer]for logo. HOW TO SAFELY DISPOSE OF PRESCRIPTION [...] Call your local pharmacy or go to http://PhotoBox.iBio/[email or web address] to find one close to you.3.Make use of household items: Use cat litter or old coffee grounds to dispose medications if other options arenot available. Mix your drugs with these household products, seal them in an airtight container andthrow it into the garbage. Call [facility]: [phone] to be sure your drugs can be [...] aware that I should contact my doctor. 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 Signature: Date/Time: Relationship to Patient: Witness Name/Signature: Date/Time: [facility]10-23-2022 Hospital Discharge instructions Patient Education 09/12/2022 [...] foods again, start with small amounts of gcfl-mk-uyxxau, low- fat foods. These include apple sauce, [...] increase stomach acid. Don't use aspirin or goeh-zns-pqzspmr pain and fever medicines, if possible. This includes nonsteroidal anti-inflammatory drugs (NSAIDs). Lose excess weight. Finish eating at least 2 hours before you go to bed or lie down. Raise the head of your bed. 8189-6766 [employer]. [address] [place] [address]. All rights reserved. This information is not intended as a substitute for professional medical care. Always follow yourhealthcare professional's instructions. Follow Up Care 09/11/2022 23:14:31 With:NICOLETTE ESQUIVEL Address: [address] [place] [phone] When:2-4 days [facility] 10-23-2022 Note Discharge Instructions Thank you for allowing [place] to assist you with your healthcare needs. The following is importantdischarge information regarding your hospital visit. Diagnosis from Today's Visit Abdominal pain What to Do Next Instructions from Your Care Team No qualifying data available. Post Acute Orders No qualifying data available. You Need to Schedule the Following Appointments Follow Up with NICOLETTE ESQUIVEL APRN-TRISTA When Within 2-4 days Where: [address] [place] [phone] Allergies NKA Medications Please ask your primary [...] foods again, start with small amounts of qpei-hy-yodjce, low- fat foods. These include apple sauce, [...] increase stomach acid. Don't use aspirin or cgnc-hqr-fyoszia pain and fever medicines, if possible. This includes nonsteroidal anti-inflammatory drugs (NSAIDs). Lose excess weight. Finish eating at least 2 hours before you go to bed or lie down. Raise the head of your bed. 1310-1470 [employer]. [address] [place], [place] [address] [address]. All rights reserved. This information is not intended as a substitute for professional medical care. Always follow yourhealthcare professional's instructions. Additional Information VACCINATE! IT SAVES LIVES! Members of the community who have not yet received the COVID-19 vaccine and would like to receive it can visit one of [facility] vaccine clinics. There are many vaccine clinic locations within the [facility]. For locations and available times, please visit [email or web address]. It is important to note that some COVID mobile vaccine clinics are held outdoors and may be canceled in rainy orstormy conditions. To learn more about pediatric vaccinations (ages 5-11), we invite you to visit the [facility] webpage. https://www.[email or web address]/pages/2325-Hsnbg-Ttxmqeyidft-Hctzuwxurv-Zxhre-Zyu stions.htmlTo learn more about the COVID-19 vaccine, we invite you to visit the [place] website for a list of frequently asked questions. [email or web address]/kpiuw-[email or web address]-Fjkmmtyvsg _Asked-Questions.pdf [place] [employer] Patient Portal Access Instructions: Stay connected with your healthcare team and access your personal medical information anytime with the [facility] Patient Portal. If you would like a full copy of your medical records please contact the [facility] Medical Records Department Tuesday through Tuesday between 8a.m. and 4:30p.m. Please follow the directions below to access the portal: 1.Access the email account you provided upon registration to the [facility].2.Look for an invitation email from [facility].3.Open the email and access the invitation link: Accept Invitation to [facility]4.Fill in the required pearl to create your account. Sign into [email or web address] with your username and password that you [...] you will allow to register on the [facility] Patient Portal for access to your information. You can also access the [facility] Patient Portal on the Widemile. Simply click on "Health Records" under "[employer]" and then click on the Medafor logo. HOW TO SAFELY DISPOSE OF PRESCRIPTION [...] Call your local pharmacy or go to http://PhotoBox.iBio/4F4Yg4s to find one close to you.3.Make use of household items: Use cat litter or old coffee grounds to dispose medications if other options arenot available. Mix your drugs with these household products, seal them in an airtight container andthrow it into the garbage. Call [facility]: [phone] to be sure your drugs can be [...] aware that I should contact my doctor. 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 Signature: Date/Time: Relationship to Patient: Witness Name/Signature: Date/Time: [facility]10-23-2022 Note ORIGINAL EXAMINATION: TWO XRAY VIEWS [...] 09/12/2022 12:05:44 AM Ordering Provider: WILFRED BEST [facility]10-23-2022 Note ORIGINAL EXAMINATION: TWO XRAY VIEWS [...] Sign Date: 09/12/2022 12:05:44 AM Ordering Provider: [facility]10-17-2022 Hospital Discharge instructions Patient Education 09/06/2022 18:24:09 DIARRHEA, Viral (6y-Adult) Viral Diarrhea (Adult) Diarrhea is usually due to viral gastroenteritis, another name for the "stomach flu." This virus affects the stomach and intestinal [...] higher, not better with fever medication New rash 9710-3452 [employer]. [address] [place] [address], [place] [address]. All rights reserved. This information is not intended as a substitute for professional medical care. Always follow yourhealthcare professional's instructions. Follow Up Care 09/06/2022 16:54:09 With:NICOLETTE ESQUIVEL PHOTOGRAPHIC TECHNICIAN-CRYSTALIZER Address: [address] [place] [address] [place] [phone] When:2-4 days [facility] 10-17-2022 Note Discharge Instructions Thank you for allowing [place] to assist you with your healthcare needs. The following is importantdischarge information regarding your hospital visit. Diagnosis from Today's Visit Diarrhea Diarrhea What to Do Next Instructions from Your Care Team No qualifying data available. Post Acute Orders No qualifying data available. You Need to Schedule the Following Appointments Follow Up with NICOLETTE ESQUIVEL When Within 2-4 days Where: [address] [facility] [place] [phone] Allergies NKA Medications Please ask your primary [...] to viral gastroenteritis, another name for the "stomach flu." This virus affects the stomach and intestinal [...] higher, not better with fever medication New rash 8970-2670 [employer]. [address] [place] [address]. All rights reserved. This information is not intended as a substitute for professional medical care. Always follow yourhealthcare professional's instructions. Additional Information VACCINATE! IT SAVES LIVES! Members of the community who have not yet received the COVID-19 vaccine and would like to receive it can visit one of [facility] vaccine clinics. There are many vaccine clinic locations within the [facility]. For locations and available times, please visit [email or web address]. It is important to note that some COVID mobile vaccine clinics are held outdoors and may be canceled in rainy orstormy conditions. To learn more about pediatric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
[2025-10-18 07:31] LABS: AST(SGOT) 22 U/L (<=31); Alanine Aminotransfer ALT/SGPT 18 U/L (<=34); Albumin, Serum 4.3 g/dL (3.5-5.0); Alkaline Phosphatase 95 U/L (35-104); Anion Gap 16 (5-15); BUN 6 mg/dL (4-19); BUN/Creat Ratio 9.5 RATIO (10-20); Bilirubin, Direct 0.23 mg/dL (0.00-0.30); Calcium,Total 9.4 mg/dL (7.6-11.0); Carbon Dioxide 20.8 mmol/L (21.0-32.0); Chloride 102 mmol/L (98-108); Estimated Creatinine Clearance 142.41 ml/min (50-250); Globulin 3.2 g/dL (2.2-4.2); Glucose 97 mg/dL (70-99); Lipase 8 U/L (13-75); Magnesium 1.9 mg/dL (1.5-2.2); Potassium 3.4 mmol/L (3.3-5.1)
[2025-10-18 07:31] LABS: Ketone-Dipstick 150 mg/dl (Negative)
[2025-10-18 07:35] LABS: Squamous Epithelial Cells - UA 5-10 SEEN /hpf (5-10)
[2025-10-18 08:42] VITALS: BP 105/64; PULSE 72; RESP 19; TEMP 37; O2SAT 100
== END 2025-10-18 09:17 | disposition home or self-care (01) ==
PROVIDERS: Emergency Provider Emergency Medicine; Visit Provider Emergency Medicine
DX: O21.9 Vomiting of pregnancy, unspecified (principal); G90.A Postural orthostatic tachycardia syndrome [POTS]; O99.350 Diseases of the nervous system complicating pregnancy, unspecified trimester; O99.340 Other mental disorders complicating pregnancy, unspecified trimester; F41.9 Anxiety disorder, unspecified; Z3A.00 Weeks of gestation of pregnancy not specified
CPT/HCPCS: 80048; 80076; 81001; 83690; 83735; 85025; 96361; 96374; 96375; 99283; A4216

== ENCOUNTER → 2025-10-22 | Outpatient (CLI) | payer OTHER, SELFPAY | END | disposition home or self-care (01) | LOC: LABSPEC 16:13 | PROVIDERS: Visit Provider Student in an Organized Health Care Education/Training Program | DX: R30.0 Dysuria (principal) | CPT/HCPCS: 87086; 87088 ==

== ENCOUNTER 2025-10-23 12:19 | Outpatient (CLI) | payer OTHER, SELFPAY ==
[2025-10-23] MEDS: 0.9% NaCl Peripheral Flush Adult IV (12:39)
[2025-10-23 12:40] VITALS: BP 105/63; PULSE 83; RESP 16; TEMP 35.6; O2SAT 97; BMI 34.0
[2025-10-23 13:51] VITALS: BP 115/49; PULSE 80; RESP 16
== END 2025-10-23 23:59 | disposition home or self-care (01) ==
LOC: MEDOUTP 12:19
PROVIDERS: Referring Provider Student in an Organized Health Care Education/Training Program; Visit Provider Student in an Organized Health Care Education/Training Program
DX: O21.9 Vomiting of pregnancy, unspecified (principal); Z3A.00 Weeks of gestation of pregnancy not specified
CPT/HCPCS: 96360; A4216